=== PATIENT | male | born 1980 | race Caucasian/White ===

== ENCOUNTER → 2017-03-30 | Outpatient (CLI) | payer OTHER ==
--- NOTE | 2017-03-30 07:37 | US ---
EXAMINATION TYPE: US liver DATE OF EXAM: 03/30/2017 COMPARISON: NONE CLINICAL HISTORY: R74.8 Elevated Liver Enzymes. Elevated liver enzymes EXAM MEASUREMENTS: Liver Length: 17.9 cm Gallbladder Wall: 0.2 cm CBD: 0.3 cm Right Kidney: 11.8 x 5.9 x 5.9 cm Pancreas: visualized portions heterogeneous, limited by overlying midline bowel gas Liver: measures in upper limits of normal at 17.9cm, increased echogenicity, increased attenuation Gallbladder: wnl Evidence for sonographic Lugo's sign: no CBD: visualized portions wnl, limited by overlying bowel gas Right Kidney: wnl Visualized liver is heterogeneously hyperechoic. Evaluation for focal masses is suboptimal due to the heterogeneity. IMPRESSION: Heterogeneous hyperechoic liver could reflect product of diffuse fatty infiltration or un derlying hepatocellular disease. Imaging guided random biopsy for tissue analysis can be performed if desired.
== END | disposition home or self-care (01) ==
LOC: RADUSWWP 06:50
PROVIDERS: ATTEND Family Medicine
DX: R74.8 Abnormal levels of other serum enzymes (principal)
CPT/HCPCS: 76705

== ENCOUNTER 2018-03-25 22:12 | Inpatient (IN) | payer OTHER ==
[2018-03-25] MEDS ORDERED: SODIUM CHLORIDE 0.9% 1,000 ML IV STA (23:29)
[2018-03-25] MEDS ORDERED: LORazepam 2 MG/ML INJ IV STA (23:29)
--- NOTE | 2018-03-25 23:35 | ED ---
General Adult HPI - General Chief complaint: Arrhythmia/Palpitations Stated complaint: Shaking, palpitations Time Seen by Provider: 03/25/18 22:21 Source: patient, RN notes reviewed Mode of arrival: ambulatory Limitations: no limitations - History of Present Illness Initial comments: Patient is a pleasant 37-year-old male presenting to the emergency Department with complaints of shaking. Patient states he has been under increased stress recently. Patient has been trying to decrease alcohol consumption. Patient did drink some yesterday and some today however less than normal. Patient states he still feels shaky. Patient denies chest pain however states he was a little bit tight this morning. Patient believes this was associated with stress. Patient is undergoing divorce. Patient has also been increased stress with work recently. No dyspnea. No abdominal pain. No back pain. - Related Data Home Medications Medication Instructions Recorded Confirmed Chlorthalidone [Hygroton] 25 mg PO DAILY 03/25/18 03/25/18 amLODIPine BESYLATE/BENAZEPRIL 1 cap PO DAILY 03/25/18 03/25/18 [Lotrel 10-40 MG] Allergies Allergy/AdvReac Type Severity Reaction Status Date / Time No Known Allergies Allergy Verified 03/25/18 22:32 Review of Systems ROS Statement: Those systems with pertinent positive or pertinent negative responses have been documented in the HPI. ROS Other: All systems not noted in ROS Statement are negative. Constitutional: Denies: fever Eyes: Denies: eye pain ENT: Denies: ear pain Respiratory: Denies: cough Cardiovascular: Reports: palpitations Endocrine: Denies: fatigue Gastrointestinal: Denies: vomiting Genitourinary: Denies: dysuria Musculoskeletal: Denies: back pain Skin: Denies: rash Neurological: Denies: weakness Psychiatric: Reports: anxiety Past Medical History Past Medical History: Hypertension History of Any Multi-Drug Resistant Organisms: None Reported Past Surgical History: Orthopedic Surgery Additional Past Surgical History / Comment(s): rt hand,lt shoulder Past Psychological History: No Psychological Hx Reported Smoking Status: Never smoker Past Alcohol Use History: Daily, Heavy Past Drug Use History: None Reported General Exam Limitations: no limitations General appearance: alert, in no apparent distress, other ( resting tremor) Head exam: Present: atraumatic Eye exam: Present: normal appearance, PERRL ENT exam: Present: normal oropharynx Neck exam: Present: normal inspection Respiratory exam: Present: normal lung sounds bilaterally Cardiovascular Exam: Present: regular rate, normal rhythm, normal heart sounds Expanded Peripheral pulses: 2+: Radial (R), Radial (L), Dorsalis Pedis (R), Dorsalis Pedis (L) GI/Abdominal exam: Present: soft. Absent: distended, tenderness Extremities exam: Present: normal inspection. Absent: pedal edema, calf tenderness Neurological exam: Present: alert Psychiatric exam: Present: normal affect, normal mood Skin exam: Present: normal color Course Vital Signs 03/25/18 03/26/18 22:16 00:16 Temperature 98.1 F Pulse Rate 96 77 Respiratory 22 15 Rate Blood Pressure 149/84 150/90 O2 Sat by Pulse 98 96 Oximetry EKG Findings - EKG Comments: EKG Findings:: Normal sinus rhythm 85. UT 194. QRS 108. QT 382. QTC 454. Normal axis. Normal QRS. No acute ST change. Medical Decision Making - Medical Decision Making Patient reevaluated and updated. Case discussed in detail with Dr. Hernandez , covering for Dr. Hays, who admits for Dr. Crowder, who will admit. - Lab Data Result diagrams: 03/25/18 22:40 03/25/18 22:40 Lab Results 03/25/18 03/25/18 03/25/18 Range/Units 22:40 22:40 22:40 WBC 8.7 (3.8-10.6) k/uL RBC 4.95 (4.30-5.90) m/uL Hgb 15.9 (13.0-17.5) gm/dL Hct 46.0 (39.0-53.0) % MCV 92.9 (80.0-100.0) fL MCH 32.1 (25.0-35.0) pg MCHC 34.5 (31.0-37.0) g/dL RDW 12.8 (11.5-15.5) % Plt Count 154 (150-450) k/uL Neutrophils % 51 % Lymphocytes % 36 % Monocytes % 8 % Eosinophils % 1 % Basophils % 1 % Neutrophils # 4.4 (1.3-7.7) k/uL Lymphocytes # 3.2 (1.0-4.8) k/uL Monocytes # 0.7 (0-1.0) k/uL Eosinophils # 0.1 (0-0.7) k/uL Basophils # 0.1 (0-0.2) k/uL PT (9.0-12.0) sec INR (<1.2) APTT (22.0-30.0) sec Sodium 124 L (137-145) mmol/L Potassium 2.8 L (3.5-5.1) mmol/L Chloride 86 L (98-107) mmol/L Carbon Dioxide 24 (22-30) mmol/L Anion Gap 14 mmol/L BUN 7 L (9-20) mg/dL Creatinine 0.66 (0.66-1.25) mg/dL Est GFR (CKD-EPI)AfAm >90 (>60 ml/min/1.73 sqM) Est GFR (CKD-EPI)NonAf >90 (>60 ml/min/1.73 sqM) Glucose 98 (74-99) mg/dL Calcium 9.5 (8.4-10.2) mg/dL Magnesium 1.4 L (1.6-2.3) mg/dL Total Bilirubin 1.9 H (0.2-1.3) mg/dL AST 164 H (17-59) U/L ALT 83 H (21-72) U/L Alkaline Phosphatase 70 (38-126) U/L Total Creatine Kinase 451 H (55-170) U/L CK-MB (CK-2) 3.8 H (0.0-2.4) ng/mL CK-MB (CK-2) Rel Index 0.8 Troponin I <0.012 (0.000-0.034) ng/mL Total Protein 7.7 (6.3-8.2) g/dL Albumin 4.5 (3.5-5.0) g/dL TSH 5.180 H (0.465-4.680) mIU/L 03/25/18 Range/Units 22:40 WBC (3.8-10.6) k/uL RBC (4.30-5.90) m/uL Hgb (13.0-17.5) gm/dL Hct (39.0-53.0) % MCV (80.0-100.0) fL MCH (25.0-35.0) pg MCHC (31.0-37.0) g/dL RDW (11.5-15.5) % Plt Count (150-450) k/uL Neutrophils % % Lymphocytes % % Monocytes % % Eosinophils % % Basophils % % Neutrophils # (1.3-7.7) k/uL Lymphocytes # (1.0-4.8) k/uL Monocytes # (0-1.0) k/uL Eosinophils # (0-0.7) k/uL Basophils # (0-0.2) k/uL PT 13.0 H (9.0-12.0) sec INR 1.3 H (<1.2) APTT 26.6 (22.0-30.0) sec Sodium (137-145) mmol/L Potassium (3.5-5.1) mmol/L Chloride (98-107) mmol/L Carbon Dioxide (22-30) mmol/L Anion Gap mmol/L BUN (9-20) mg/dL Creatinine (0.66-1.25) mg/dL Est GFR (CKD-EPI)AfAm (>60 ml/min/1.73 sqM) Est GFR (CKD-EPI)NonAf (>60 ml/min/1.73 sqM) Glucose (74-99) mg/dL Calcium (8.4-10.2) mg/dL Magnesium (1.6-2.3) mg/dL Total Bilirubin (0.2-1.3) mg/dL AST (17-59) U/L ALT (21-72) U/L Alkaline Phosphatase (38-126) U/L Total Creatine Kinase (55-170) U/L CK-MB (CK-2) (0.0-2.4) ng/mL CK-MB (CK-2) Rel Index Troponin I (0.000-0.034) ng/mL Total Protein (6.3-8.2) g/dL Albumin (3.5-5.0) g/dL TSH (0.465-4.680) mIU/L - Radiology Data Radiology results: image reviewed (Chest x-ray shows no acute process) Disposition Clinical Impression: Hyponatremia, Hypokalemia Disposition: ADMITTED IP TO THIS [facility] Is patient prescribed a controlled substance at d/c from ED?: No Referrals: Carlos Enrique Crowder MD [Primary Care Provider] - 1-2 days Decision Time: 00:27
[2018-03-25 23:55] LABS: Basophils # (A) 0.1 k/uL (0-0.2); Basophils % (A) 1 %; Eosinophils # (A) 0.1 k/uL (0-0.7); Eosinophils % (A) 1 %; HGB 15.9 gm/dL (13.0-17.5); Lymphocytes # (A) 3.2 k/uL (1.0-4.8); Lymphocytes % (A) 36 %; MCH 32.1 pg (25.0-35.0); MCHC 34.5 g/dL (31.0-37.0); MCV 92.9 fL (80.0-100.0); Mean Platelet Volume 7.5; Monocytes # (A) 0.7 k/uL (0-1.0); Monocytes % (A) 8 %; Neutrophils # (A) 4.4 k/uL (1.3-7.7); Neutrophils % (A) 51 %; Platelet Count 154 k/uL (150-450); RBC 4.95 m/uL (4.30-5.90); RDW 12.8 % (11.5-15.5); WBC 8.7 k/uL (3.8-10.6)
[2018-03-26 00:08] LABS: ALT 83 U/L (21-72); AST 164 U/L (17-59); Albumin 4.5 g/dL (3.5-5.0); Alkaline Phosphatase 70 U/L (38-126); Anion Gap 14 mmol/L; Blood Urea Nitrogen 7 mg/dL (9-20); Calcium 9.5 mg/dL (8.4-10.2); Carbon Dioxide 24 mmol/L (22-30); Chloride 86 mmol/L (98-107); Glucose 98 mg/dL (74-99); Magnesium 1.4 mg/dL (1.6-2.3); Potassium 2.8 mmol/L (3.5-5.1); Sodium 124 mmol/L (137-145); Total Bilirubin 1.9 mg/dL (0.2-1.3); Total Protein 7.7 g/dL (6.3-8.2)
[2018-03-26 00:09] LABS: INR 1.3 (<1.2); Partial Thromboplastin Time 26.6 sec (22.0-30.0)
--- NOTE | 2018-03-26 00:16 | XR ---
EXAMINATION TYPE: XR chest 2V DATE OF EXAM: 03/26/2018 COMPARISON: NONE HISTORY: Dysrhythmia. TECHNIQUE: Frontal and lateral views of the chest are obtained. FINDINGS: Heart and mediastinum are normal. Lungs are clear. Diaphragm is normal. Bony thorax appear s normal. IMPRESSION: Normal chest
[2018-03-26] MEDS ORDERED: POTASSIUM CHLORIDE ER 20 MEQ TAB.ER PO STA (00:21)
[2018-03-26] MEDS ORDERED: POTASSIUM CHLORIDE 2 MEQ/ML 20 ML VIAL IVPB STA (00:21)
[2018-03-26] MEDS ORDERED: MAGNESIUM SULFATE-D5W PMX 1 GM in DEXTROSE/WATER 1 100ML.BAG IVPB ONE (00:22)
[2018-03-26] MEDS ORDERED: LORazepam 2 MG/ML INJ IV PRN ×3 (00:23)
[2018-03-26] MEDS ORDERED: NALOXONE 0.4 MG/ML 1 ML VIAL IV PRN (00:23)
[2018-03-26 00:24] LABS: Creatine Kinase 451 U/L (55-170)
[2018-03-26 00:37] LABS: Creatine Kinase MB 3.8 ng/mL (0.0-2.4); Troponin I <0.012 ng/mL (0.000-0.034)
[2018-03-26] MEDS ORDERED: POTASSIUM CHLORIDE 100 ML IVPB ONE (00:45)
[2018-03-26] MEDS ORDERED: POTASSIUM CHLORIDE IVPB ONE (00:49)
[2018-03-26] MEDS ORDERED: 0.9% NACL WITH KCL 20 MEQ/L 1,000 ML IV SCH (01:00)
[2018-03-26] MEDS: MAGNESIUM OXIDE 400 MG TAB PO SCH ×3 (01:23→21:37)
--- NOTE | 2018-03-26 01:31 | P.HPIM ---
History of Present Illness Chief Complaint: Anxiety and tremulousness This is a 37-year-old male with history of alcoholism and hypertension who came to emergency department complaining of unremitting anxiety and tremulousness. His problems started on the morning of admission. He woke up in the usual state of health but started developing some anxiety, sweats and shaking in his hands accompanied by nausea and one episode of known bile was nonbloody vomit. Denied any headache, alteration in mental status, vision changes, hot flashes, chest pain. Patient states that he normally drinks 10-15 cans of beer a day for many years. Day prior to today he was drinking as normal. After developing above mentioned symptoms he tried some relaxation technique at his condition was not improving and he started drinking beer again. He drank about 15 beers on the day of admission. He felt that his anxiety is still going on. He feels that he 's been under lots of stress since he'd been going through divorce. He denies depression or suicidal attempts. He came to emergency department and was found to have sodium 124 and potassium of 2.4. His liver enzymes slightly elevated with normal bilirubin and alk phos of this. He does have a ultrasound of the liver about a year ago that showed fatty liver changes. He is aware of liver damage. He denies any drug use. He states that he hasn't been eating for last day or 2 and he's been mostly drinking. Emergency department he was given 1 L of normal saline potassium and magnesium infusion and started on normal saline at 75 mL/h. He will also given Ativan. After that he started feeling much better. Currently during interview he states that all of his anxiety and tremulousness has completely resolved and he' s been feeling much better. Patient denies any history of prior hospitalization, alcohol rehab or enrollment in the alcohol cessation program, seizures or delirium tremens Review of Systems REVIEW OF SYSTEMS: CONSTITUTIONAL: No fever or chills HEENT: No changes in vision or voice CARDIOVASCULAR: no chest pain or abnormal heart beats, or any swelling in ankles or feet. RESPIRATORY: No wheezing or coughing. GASTROINTESTINAL: No abdominal pain, no constipation or diarrhea GENITOURINARY: no any urinary urgency, frequency or burning, and there has been no blood in her urine. no flank pain. MUSCULOSKELETAL: She notes full range of motion of all her joints without pain or swelling. NEUROLOGICAL: , no headache. no vision changes, or fainting. No numbness or tingling. Psychiatric: As mentioned in history of present illness Genitourinary: No dysuria flank pain or frequency Past Medical History Past Medical History: Hypertension History of Any Multi-Drug Resistant Organisms: None Reported Past Surgical History: Orthopedic Surgery Additional Past Surgical History / Comment(s): rt hand,lt shoulder Past Psychological History: No Psychological Hx Reported Smoking Status: Never smoker Past Alcohol Use History: Daily, Heavy Past Drug Use History: None Reported Medications and Allergies Home Medications Medication Instructions Recorded Confirmed Type Chlorthalidone [Hygroton] 25 mg PO DAILY 03/25/18 03/25/18 History amLODIPine BESYLATE/BENAZEPRIL 1 cap PO DAILY 03/25/18 03/25/18 History [Lotrel 10-40 MG] Allergies Allergy/AdvReac Type Severity Reaction Status Date / Time No Known Allergies Allergy Verified 03/25/18 22:32 Physical Exam Vitals: Vital Signs Temp Pulse Resp BP Pulse Ox 03/26/18 01:09 97.6 F 78 19 134/81 96 03/26/18 00:16 77 15 150/90 96 03/25/18 22:16 98.1 F 96 22 149/84 98 Intake and Output 03/25/18 03/25/18 03/26/18 14:59 22:59 06:59 Other: Weight 112.128 kg Vital Signs: I have reviewed the vital signs. GENERAL: Well-nourished, Well-developed , no apparent distress, cooperative Eyes: PERRL, extraoculry movements intact, clear conjunctiva no nystagmus Head: : Atraumatic external nose and ears, oropharyngeal mucosa is moist without lesions or exudates Neck: Symmetric, trachea midline, No thyromegaly, no masses or neck vain pulsation, no neck rigidity CVS: +S1/S2, No murmurs or gallops. Peripheral pulses 2+ and equal in all extremities. RESP: Unlabored respiratory effort. Clear to auscultation bilaterally. Abdomen: Bowel sounds present in all 4 quadrants, Soft to palpation, Nontender/ Nondistended, No hepatosplenomegaly, no hernias or masses, no CVA tnderness Musculoskeletal: Extremities w/o deformity, No cyanosis or clubbing, no joint swelling Skin: Warm, Dry. 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 Finger to nose intact. No nystagmus. Psych: Awake, Alert, & Oriented (AAO) x3 Appropriate mood and affect Results CBC & Chem 7: 03/25/18 22:40 03/25/18 22:40 Labs: Abnormal Lab Results - Last 24 Hours (Table) 03/25/18 03/25/18 03/25/18 Range/Units 22:40 22:40 22:40 PT 13.0 H (9.0-12.0) sec INR 1.3 H (<1.2) Sodium 124 L (137-145) mmol/L Potassium 2.8 L (3.5-5.1) mmol/L Chloride 86 L (98-107) mmol/L BUN 7 L (9-20) mg/dL Magnesium 1.4 L (1.6-2.3) mg/dL Total Bilirubin 1.9 H (0.2-1.3) mg/dL AST 164 H (17-59) U/L ALT 83 H (21-72) U/L Total Creatine Kinase 451 H (55-170) U/L CK-MB (CK-2) 3.8 H (0.0-2.4) ng/mL TSH 5.180 H (0.465-4.680) mIU/L Assessment and Plan Assessment: 1. Hyponatremia, hypovolemic Probably Due to beer potomania and decreased solute intake, rule out other causes We'll check his serum and urine osmolarity TSH cortisol as a part of the usual workup We will hold his home chlorthalidone He was already given 1 L fluid in ER and continued IV fluids I will order stat electrolytes now to evaluate response of his sodium after above IV fluids and to be able to further adjust his IV fluids Check electrolytes every 4-6 hours. 2. Hypokalemia Multifactorial, due to decreased by mouth intake, alcohol intake, hypomagnesemia and dehydration and thiazides Hold chlorthalidone He received potassium and magnesium supplementation emergency department We will check his potassium now 3. Elevated liver enzymes With AST:ALT ratio >2:1 Normal bilirubin and alkaline phosphatase Presumably due to alcoholic liver disease Ultrasound of the liver one year ago showed fatty changes We'll add viral hepatitis panel Repeat liver enzymes in the morning 4. Chronic alcoholism Last drink was today Continue with [facility] protocol Multivitamin supplementation as per protocol Social work to evaluate for rehabilitation options 5. Hypertension benign essential Blood pressure is stable and acceptable range Hold his home medications Patient is a full code is a surrogate decision maker Expected length of stay 2 days
[2018-03-26 02:54] LABS: Anion Gap 13 mmol/L; Blood Urea Nitrogen 6 mg/dL (9-20); Calcium 9.3 mg/dL (8.4-10.2); Carbon Dioxide 25 mmol/L (22-30); Chloride 87 mmol/L (98-107); Glucose 97 mg/dL (74-99); Sodium 125 mmol/L (137-145)
[2018-03-26 07:44] LABS: ALT 81 U/L (21-72); AST 179 U/L (17-59); Anion Gap 10 mmol/L; Blood Urea Nitrogen 5 mg/dL (9-20); Carbon Dioxide 28 mmol/L (22-30); Chloride 92 mmol/L (98-107); Glucose 88 mg/dL (74-99); Potassium 3.4 mmol/L (3.5-5.1); Sodium 130 mmol/L (137-145)
[2018-03-26] MEDS ORDERED: POTASSIUM BICARBONATE/CIT AC 20 MEQ TABLET.EFF PO ONE (08:30)
--- NOTE | 2018-03-26 09:07 | P.PN ---
Subjective Progress Note Date: 03/26/18 Principal diagnosis: tremors Patient is a 37-year-old male who presented with complaints of tremors and anxiety. Admitted for hyponatremia and impending delirium tremens. Already seen by Dr. Mahtis from our group this morning. Reevaluation of patient. He is starting to feel tremulousness and anxious again. He is determined to quit would like help with medications to abstain from all the gibson. He has 3 kids and is motivated to maintain sobriety. He is interested in treatments with programs such as AA but would not want a program where he has to live at home. No chest pain, shortness of breath, nausea, vomiting, or diaphoresis. Did have one episode of confusion last night. Discussed in detail with patient use of Librium to treat alcohol withdrawal. We discussed that Librium is a sedating medication and if combined with alcohol can lead to overdose which can progress to . Patient is aware. I have told him I will prescribe him Librium on discharge because he is aware of these risks. He acknowledges understanding and states he would want a trial of Librium and to join AA. He has a PCP Dr. Crowder who he can follow with to see how the Librium taper is going. We also discussed that he will need repeat blood work in 1 week to ensure his sodium level remains stable. For full note from 03/26/18 please see H&P by Dr. Marcin Benson Objective - Vital Signs Vital signs: Vital Signs Temp 97.9 F 03/26/18 02:13 Pulse 78 03/26/18 05:31 Resp 15 03/26/18 05:31 BP 135/80 03/26/18 05:31 Pulse Ox 98 03/26/18 05:31 Intake & Output 03/25/18 03/26/18 03/26/18 18:59 06:59 18:59 Intake Total 100 0 Balance 100 0 Weight 109.8 kg Intake: Intake, IV Titration 100 Amount Potassium Chloride 20 meq 100 In Empty Bag 1 bag @ 50 mls/hr IVPB ONCE ONE Rx#: [id number] Oral 0 Other: # Voids 2 - Labs CBC & Chem 7: 03/25/18 22:40 03/26/18 05:58 Labs: Abnormal Lab Results - Last 24 Hours (Table) 03/25/18 03/25/18 03/25/18 Range/Units 22:40 22:40 22:40 PT 13.0 H (9.0-12.0) sec INR 1.3 H (<1.2) Sodium 124 L (137-145) mmol/L Potassium 2.8 L (3.5-5.1) mmol/L Chloride 86 L (98-107) mmol/L BUN 7 L (9-20) mg/dL Osmolality (280-301) mosm/kg Magnesium 1.4 L (1.6-2.3) mg/dL Total Bilirubin 1.9 H (0.2-1.3) mg/dL AST 164 H (17-59) U/L ALT 83 H (21-72) U/L Total Creatine Kinase 451 H (55-170) U/L CK-MB (CK-2) 3.8 H (0.0-2.4) ng/mL TSH 5.180 H (0.465-4.680) mIU/L 03/26/18 03/26/18 03/26/18 Range/Units 02:15 05:58 05:58 PT (9.0-12.0) sec INR (<1.2) Sodium 125 L 130 L (137-145) mmol/L Potassium 3.0 L 3.4 L (3.5-5.1) mmol/L Chloride 87 L 92 L (98-107) mmol/L BUN 6 L 5 L (9-20) mg/dL Osmolality 264 L (280-301) mosm/kg Magnesium (1.6-2.3) mg/dL Total Bilirubin (0.2-1.3) mg/dL AST 179 H (17-59) U/L ALT 81 H (21-72) U/L Total Creatine Kinase (55-170) U/L CK-MB (CK-2) (0.0-2.4) ng/mL TSH (0.465-4.680) mIU/L
[2018-03-26] MEDS: chlordiazePOXIDE 25 MG CAP PO SCH ×3 (09:26→21:38)
[2018-03-26] MEDS: THIAMINE 100 MG TAB PO SCH ×2 (11:57→21:15)
[2018-03-26] MEDS ORDERED: MULTIVITAMINS, THERA 1 EACH TAB PO SCH (12:00)
[2018-03-26 18:46] LABS: Hepatitis A Ab, Total Non-Reactive (Non-Reactive); Hepatitis B Surface AB- Quant 59.5 mIU/mL; Hepatitis C IgG Antibody Non-Reactive (Non-Reactive)
[2018-03-27 07:16] LABS: HCT 45.3 % (39.0-53.0); HGB 15.2 gm/dL (13.0-17.5); MCH 31.6 pg (25.0-35.0); MCHC 33.6 g/dL (31.0-37.0); MCV 93.9 fL (80.0-100.0); Mean Platelet Volume 6.9; Platelet Count 168 k/uL (150-450); RBC 4.83 m/uL (4.30-5.90); RDW 12.8 % (11.5-15.5); WBC 5.7 k/uL (3.8-10.6)
[2018-03-27 07:35] LABS: ALT 97 U/L (21-72); AST 226 U/L (17-59); Albumin 4.5 g/dL (3.5-5.0); Alkaline Phosphatase 58 U/L (38-126); Anion Gap 10 mmol/L; Blood Urea Nitrogen 8 mg/dL (9-20); Calcium 9.6 mg/dL (8.4-10.2); Carbon Dioxide 30 mmol/L (22-30); Chloride 96 mmol/L (98-107); Glucose 98 mg/dL (74-99); Potassium 3.5 mmol/L (3.5-5.1); Sodium 136 mmol/L (137-145); Total Bilirubin 1.3 mg/dL (0.2-1.3); Total Protein 7.7 g/dL (6.3-8.2)
[2018-03-27] MEDS: chlordiazePOXIDE 25 MG CAP PO SCH (08:00)
[2018-03-27] MEDS: MAGNESIUM OXIDE 400 MG TAB PO SCH (08:00)
[2018-03-27 08:07] VITALS: BP 141/101; PULSE 74; RESP 16; TEMP 97.6
[2018-03-27] MEDS ORDERED: LISINOPRIL 20 MG TAB PO SCH (09:00)
[2018-03-27] MEDS ORDERED: amLODIPine 10 MG TAB PO SCH (09:00)
--- NOTE | 2018-03-27 10:58 | P.DS ---
Providers Date of admission: 03/26/18 00:23 Expected date of discharge: 03/27/18 Attending physician: Marcin Benson MD Primary care physician: Carlos Enrique Crowder Hospital Course: Discharge Diagnosis: Hyponatremia Delirium tremens Transaminits due to alcohol Fatty liver disease Hypokalemia HTN Hospital Course: Patient is a 37-year-old male who presented with complaints of tremors and anxiety. On arrival to the ER his vital signs within normal limits. Initial laboratory analysis showed a sodium of 124, potassium 2.8, INR 1.3, magnesium 1.4, bilirubin 1.9, AST 164, an ALT of 83. He was started on IV fluids, his chlorthalidone was held, and he was given a dose of Ativan. He was admitted for further monitoring. His opium were corrected appropriately and is able to come off IV fluids. He was started on scheduled Librium. His symptoms of alcohol withdrawal completely resolved. His potassium normalized and his magnesium normalized. Hepatitis screening was negative for acute infection. TSH on repeat testing was normal. Cortisol level normal. His sodium was normalized and he was determined stable for discharge home. He'll have slightly elevated liver enzymes at 226 and 97. I discussed with him at length the need for follow-up with Dr. Crowder next week for repeat sodium level as well as repeat liver enzyme. He has a known history of fatty liver disease secondary to alcoholism. He will need close monitoring. We had multiple lengthy discussions about the use of Librium to prevent alcohol withdrawal. He was determined to quit. We discussed that if he combines Librium with alcohol is believed overdose and . He assures me he'll not and understands risk. He still would like a prescription for Librium. We have discussed at length the signs of worsening alcohol withdrawal and when he should represent to the emergency department as listed below in his discharge instructions. He was determined stable for discharge home. Patient seen and examined at bedside. No chest pain, sob, nausea, tremors, or diaphoresis. Vital signs reviewed and stable. General: non toxic, no distress, appears at stated age Derm: warm, dry Head: atraumatic, normocephalic, symmetric Eyes: EOMI, no lid lag, anicteric sclera Mouth: no lip lesion, mucus membranes moist Cardiovascular: S1S2 reg, no murmur, positive posterior tibial pulse bilateral, Lungs: CTA bilateral, no rhonchi, no rales , no accessory muscle use Abdominal: soft, nontender to palpation, no guarding, no appreciable organomegaly Ext: no gross muscle atrophy, no edema, no contractures Neuro: CN II-XI grossly intact, no focal neuro deficits Psych: Alert, oriented, appropriate affect A total of 35 minutes of time were spent preparing this complex discharge summary . Pertinent Studies: CXR- NAP Patient Condition at Discharge: Stable Plan - Discharge Summary Discharge Rx Participant: No New Discharge Prescriptions: New chlordiazePOXIDE HCl [Librium] See Taper PO TID 15 Days #30 capsule Continue amLODIPine BESYLATE/BENAZEPRIL [Lotrel 10-40 MG] 1 cap PO DAILY Discontinued Chlorthalidone [Hygroton] 25 mg PO DAILY Discharge Medication List amLODIPine BESYLATE/BENAZEPRIL [Lotrel 10-40 MG] 1 cap PO DAILY 03/25/18 [ History] chlordiazePOXIDE HCl [Librium] See Taper PO TID 15 Days #30 capsule 03/27/18 [Rx ] Follow up Appointment(s)/Referral(s): Carlos Enrique Crowder MD [Primary Care Provider] - 1-2 days Ambulatory/Diagnostic Orders: Comprehensive Metabolic Panel [LAB.AMB] Time Frame: 5 Days, Location: None Selected Patient Instructions/Handouts: Alcohol Withdrawal (DC) Activity/Diet/Wound Care/Special Instructions: regular diet activity as tolerated Avoid alcohol while on librium can lead to overdose and Return if: racing heart, sweating, tremors, confusion, sleepiness, shaking Discharge Disposition: HOME SELF-CARE
[2018-03-27 11:29] LABS: Potassium 3.5 mmol/L (3.5-5.1)
== END 2018-03-27 12:05 | disposition home or self-care (01) | DRG 641 ==
LOC: EC 22:12 → 3SCARD 03-26 00:23
PROVIDERS: ADMIT Hospitalist; ATTEND Hospitalist
DX: E87.1 Hypo-osmolality and hyponatremia (principal); F10.231 Alcohol dependence with withdrawal delirium; E83.42 Hypomagnesemia; E86.0 Dehydration; E86.1 Hypovolemia; E87.6 Hypokalemia; F41.9 Anxiety disorder, unspecified; I10 Essential (primary) hypertension; K70.9 Alcoholic liver disease, unspecified; K76.0 Fatty (change of) liver, not elsewhere classified; Z79.899 Other long term (current) drug therapy
CPT/HCPCS: 36415; 71046; 80048; 80051; 80053; 82533; 82550; 82553; 83735; 83930; 83935; 84443; 84450; 84460; 84484; 85025; 85027; 85610; 85730; 86704; 86706; 86708; 86803; 87340; 93005; 96361; 96365; 96375; 99285

== ENCOUNTER 2018-08-28 19:01 | Emergency (ER) | payer BC, OTHER ==
[2018-08-28 19:44] VITALS: BP 158/103; PULSE 90; RESP 18; TEMP 99.2
--- NOTE | 2018-08-28 20:37 | ED ---
Extremity Problem HPI - General Chief complaint: Extremity Problem,Nontraumatic Stated complaint: RT foot injury/swelling Time Seen by Provider: 08/28/18 20:24 Source: patient Mode of arrival: ambulatory Limitations: no limitations - History of Present Illness Initial comments: Kian is a previously healthy nondiabetic 38-year-old gentleman who presents the emergency department today for evaluation of redness of his right foot. Patient reports that he woke this morning and noticed that there was a patch of redness around his right great toe, throughout the day today he's noticed that his entire foot becoming red and swollen, he used to marker marked the borders and came to the ER for evaluation. Patient reports he has been bloating recently and in the water, he has not noticed any injury or bug bites. denies any associated fevers, chills, nausea or vomiting. He reports he's otherwise feeling well but was worried he had a skin infections became the ER for evaluation. - Related Data Home Medications Medication Instructions Recorded Confirmed amLODIPine BESYLATE/BENAZEPRIL 1 cap PO DAILY 03/25/18 08/28/18 [Lotrel 10-40 MG] Previous Rx's Medication Instructions Recorded Cephalexin [Keflex] 500 mg PO Q6HR #28 cap 08/28/18 Allergies Allergy/AdvReac Type Severity Reaction Status Date / Time No Known Allergies Allergy Verified 08/28/18 20:35 Review of Systems ROS Statement: Those systems with pertinent positive or pertinent negative responses have been documented in the HPI. ROS Other: All systems not noted in ROS Statement are negative. Past Medical History Past Medical History: Hypertension History of Any Multi-Drug Resistant Organisms: None Reported Past Surgical History: Orthopedic Surgery Additional Past Surgical History / Comment(s): 2 rt hand,lt shoulder, Past Psychological History: No Psychological Hx Reported Smoking Status: Never smoker Past Alcohol Use History: Daily, Heavy Past Drug Use History: None Reported - Past Family History Mother Family Medical History: Hypertension General Exam - General Exam Comments Initial Comments: Physical Exam GENERAL: Patient is well-developed and well-nourished. Patient is nontoxic and well- hydrated and is in no distress. HENT: Normocephalic, Atraumatic. EYES: PERRL, EOMI PULMONARY: Unlabored respirations. No audible rales rhonchi or wheezing was noted. CARDIOVASCULAR: There is a regular rate and rhythm without any murmurs gallops or rubs. ABDOMEN: Soft and nontender with normal bowel sounds. SKIN: Petechial rash to the right foot to the level of the ankle, there is some induration : Deferred NEUROLOGIC: Patient is alert and oriented x3. Moving all extremities spontaneously MUSCULOSKELETAL: Normal extremities with adequate strength and full range of motion. No lower extremity swelling or edema. No calf tenderness. PSYCHIATRIC: Normal psychiatric evaluation Limitations: no limitations Course Vital Signs 08/28/18 19:41 Temperature 99.2 F Pulse Rate 90 Respiratory 18 Rate Blood Pressure 158/103 O2 Sat by Pulse 99 Oximetry Medical Decision Making - Medical Decision Making The patient was seen and evaluated history is obtained from the patient Patient with apparent cellulitis to the right foot, no obvious injury or breaks in the skin. Will start on oral antibiotics tonight given prescription for 7 days of antibiotics. All questions pertaining care were answered return parameters were discussed patient was discharged home in stable condition. Disposition Clinical Impression: Cellulitis Disposition: HOME SELF-CARE Condition: Stable Instructions (If sedation given, give patient instructions): Cellulitis (DC) Prescriptions: Cephalexin [Keflex] 500 mg PO Q6HR #28 cap Is patient prescribed a controlled substance at d/c from ED?: No Referrals: Carlos Enrique Crowder MD [Primary Care Provider] - 1-2 days
[2018-08-28] MEDS ORDERED: CEPHALEXIN 500MG STARTER PACK 4 CAP BTL PO STA (21:25)
== END 2018-08-28 21:40 | disposition home or self-care (01) ==
LOC: EC 19:01
DX: L03.115 Cellulitis of right lower limb (principal); I10 Essential (primary) hypertension; Z79.899 Other long term (current) drug therapy
CPT/HCPCS: 99283

== ENCOUNTER 2019-05-03 10:13 | Emergency (ER) | payer OTHER ==
[2019-05-03] MEDS ORDERED: HYDROcodone/APAP 7.5-325MG 1 EACH TAB PO ONE (10:41)
--- NOTE | 2019-05-03 11:18 | ED ---
Lower Extremity Injury HPI - General Chief Complaint: Extremity Injury, Lower Stated Complaint: Lt knee pain Time Seen by Provider: 05/03/19 10:29 Source: patient, RN notes reviewed Mode of arrival: wheelchair Limitations: no limitations - History of Present Illness Initial Comments: This a 38-year-old male presents emergency Department chief complaint left knee pain, swelling. Patient denies any known trauma. He does admit that he's been doing nicolás recently has been up and down but states he does not feel any pops no twisting no abnormal movement. Patient states she's had prior surgery denies any history of blood clots denies any chest pain or shortness breath. He states it's very painful to move he states it feels like it wants to give out on him. - Related Data Home Medications Medication Instructions Recorded Confirmed amLODIPine BESYLATE/BENAZEPRIL 1 cap PO DAILY 03/25/18 08/28/18 [Lotrel 10-40 MG] Previous Rx's Medication Instructions Recorded Cephalexin [Keflex] 500 mg PO Q6HR #28 cap 08/28/18 Ibuprofen [Motrin] 600 mg PO Q8HR PRN #20 tab 05/03/19 predniSONE 50 mg PO DAILY #5 tab 05/03/19 Allergies Allergy/AdvReac Type Severity Reaction Status Date / Time No Known Allergies Allergy Verified 05/03/19 10:25 Review of Systems ROS Statement: Those systems with pertinent positive or pertinent negative responses have been documented in the HPI. ROS Other: All systems not noted in ROS Statement are negative. Past Medical History Past Medical History: Hypertension History of Any Multi-Drug Resistant Organisms: None Reported Past Surgical History: Orthopedic Surgery Additional Past Surgical History / Comment(s): 2 rt hand,lt shoulder, Past Psychological History: No Psychological Hx Reported Smoking Status: Never smoker Past Alcohol Use History: Daily, Heavy Past Drug Use History: None Reported - Past Family History Mother Family Medical History: Hypertension General Exam Limitations: no limitations General appearance: alert, in no apparent distress Head exam: Present: atraumatic, normocephalic, normal inspection Eye exam: Present: normal appearance, PERRL, EOMI. Absent: scleral icterus, conjunctival injection, periorbital swelling Neck exam: Present: normal inspection, full ROM. Absent: tenderness, meningismus, lymphadenopathy Respiratory exam: Present: normal lung sounds bilaterally. Absent: respiratory distress, wheezes, rales, rhonchi, stridor Cardiovascular Exam: Present: regular rate, normal rhythm, normal heart sounds. Absent: systolic murmur, diastolic murmur, rubs, gallop, clicks Extremities exam: Present: other (left knee moderate swelling/effusion, no erythema, limited range of motion second pain no laxity noted there is swelling above and below the knee) Course Vital Signs 05/03/19 10:24 Temperature 98.4 F Pulse Rate 72 Respiratory 16 Rate Blood Pressure 131/84 O2 Sat by Pulse 98 Oximetry Medical Decision Making - Medical Decision Making X-ray shows bony abnormality on the tibia patient was updated advised to follow- up. Ultrasound is negative for DVT. Patient mostly has a left knee sprain versus some bursitis he has he has been recently working for him. Patient will follow-up with orthopedics return parameters were discussed. Disposition Clinical Impression: Left knee sprain, Bursitis of left knee Disposition: HOME SELF-CARE Condition: Stable Instructions (If sedation given, give patient instructions): Knee Sprain (ED) Additional Instructions: Please return to the Emergency Department if symptoms worsen or any other concerns. Prescriptions: Ibuprofen [Motrin] 600 mg PO Q8HR PRN #20 tab PRN Reason: Pain predniSONE 50 mg PO DAILY #5 tab Is patient prescribed a controlled substance at d/c from ED?: No Referrals: Carlos Enrique Crowder MD [Primary Care Provider] - 1-2 days Kofi Lira MD [STAFF PHYSICIAN] - 1-2 days Time of Disposition: 12:03
--- NOTE | 2019-05-03 11:19 | US ---
EXAMINATION TYPE: US venous doppler duplex LE LT DATE OF EXAM: 05/03/2019 10:44 AM COMPARISON: NONE CLINICAL HISTORY: pain, swelling. SIDE PERFORMED: Left TECHNIQUE: The lower extremity deep venous system is examined utilizing real time linear array sonog niko with graded compression, doppler sonography and color-flow sonography. VESSELS IMAGED: External Iliac Vein (EIV) Common Femoral Vein Deep Femoral Vein Greater Saphenous Vein * Femoral Vein Popliteal Vein Small Saphenous Vein * Proximal Calf Veins (* superficial vessels) Grayscale, color doppler, spectral doppler imaging performed of the deep veins of the left lower extr emity. There is normal flow, compressibility, vascular waveforms. Left Leg: Negative for DVT IMPRESSION: No sonographic evidence of deep venous thrombosis within the left lower extremity.
--- NOTE | 2019-05-03 11:28 | XR ---
EXAMINATION TYPE: XR knee complete LT DATE OF EXAM: 05/03/2019 COMPARISON: NONE HISTORY: Pain TECHNIQUE: Three views are submitted. FINDINGS: Joint spaces are preserved. Osseous structures are intact. No acute fracture seen. Spurring along the upper margin of the patella noted and there appears to be a small amount of fluid in the suprapat ellar bursa. Cortical thickening along the proximal lateral tibia noted. IMPRESSION: 1. No acute fracture or dislocation. Cortical thickening along the proximal lateral tibia favored ov er small osteochondroma. If symptoms persist consider MRI.
[2019-05-03] MEDS ORDERED: ACET/COD 300 MG/30 MG STARTER PACK 6 TAB BTL PO STA (12:04)
[2019-05-03 12:15] VITALS: BP 150/89; PULSE 69; RESP 20; TEMP 98.3
== END 2019-05-03 12:15 | disposition home or self-care (01) ==
LOC: EC 10:13
DX: S83.92XA Sprain of unspecified site of left knee, initial encounter (principal); M70.52 Other bursitis of knee, left knee; I10 Essential (primary) hypertension; Z79.1 Long term (current) use of non-steroidal anti-inflammatories (NSAID); Z98.890 Other specified postprocedural states; X58.XXXA Exposure to other specified factors, initial encounter
CPT/HCPCS: 99284

== ENCOUNTER 2019-07-18 22:19 | Emergency (ER) | payer OTHER ==
[2019-07-18 22:28] VITALS: PULSE 98; RESP 18; TEMP 98
[2019-07-18] MEDS ORDERED: LIDOCAINE 1%-EPI 1:100,000 20 ML VIAL SQ STA (22:48)
--- NOTE | 2019-07-18 23:21 | ED ---
Wound/Laceration HPI - General Chief Complaint: Wound/Laceration Stated Complaint: Leg Laceration Time Seen by Provider: 07/18/19 22:35 Source: patient Mode of arrival: ambulatory - History of Present Illness Initial Comments: 38-year-old male presenting today for chief complaint of right leg laceration. Patient states he was working on a roof earlier when he was cut by a hook. Patient states he was unable to control the bleeding and then his presents to the emergency department this afternoon. He states occur at 11:45 AM. Patient states she has been wrapping T-shirts around the injury. Patient states his tetanus up-to-date within the last 5 years. He shouldn't denies any other areas of injury. Patient denies any other complaints she states it is supple there's foreign body. Patient states he thought the laceration overall was superficial however was noted the laceration would not stop bleeding. Remaining review of system negative upon arrival patient appears well, slow amount of oozing blood from laceration. - Related Data Home Medications Medication Instructions Recorded Confirmed amLODIPine BESYLATE/BENAZEPRIL 1 cap PO DAILY 03/25/18 08/28/18 [Lotrel 10-40 MG] Previous Rx's Medication Instructions Recorded Cephalexin [Keflex] 500 mg PO Q6HR #28 cap 08/28/18 Ibuprofen [Motrin] 600 mg PO Q8HR PRN #20 tab 05/03/19 predniSONE 50 mg PO DAILY #5 tab 05/03/19 Allergies Allergy/AdvReac Type Severity Reaction Status Date / Time No Known Allergies Allergy Verified 07/18/19 22:28 Review of Systems ROS Statement: Those systems with pertinent positive or pertinent negative responses have been documented in the HPI. ROS Other: All systems not noted in ROS Statement are negative. Past Medical History Past Medical History: Hypertension History of Any Multi-Drug Resistant Organisms: None Reported Past Surgical History: Orthopedic Surgery Additional Past Surgical History / Comment(s): 2 rt hand,lt shoulder, Past Psychological History: No Psychological Hx Reported Smoking Status: Never smoker Past Alcohol Use History: Daily, Heavy Past Drug Use History: None Reported - Past Family History Mother Family Medical History: Hypertension General Exam - General Exam Comments Initial Comments: General: The patient is awake and alert, in no distress, and does not appear acutely ill. Eye: Pupils are equal, round and reactive to light, extra-ocular movements are intact. No nystagmus. There is normal conjunctiva bilaterally. No signs of icterus. . Musculoskeletal: Normal ROM, no tenderness. Strength 5/5. Sensation intact. Pulses equal bilaterally 2+. Neurological: A&O x 3. CN II-XII intact grossly, There are no obvious motor or sensory deficits. Coordination appears grossly intact. Speech is normal. Skin: Skin is warm and dry and no rashes. 3.5cm laceration of the right lateral calf. Superficial in nature, no FB, wound edges clean, linear Psychiatric: Cooperative, appropriate mood & affect, normal judgment. Course Vital Signs 07/18/19 07/18/19 22:26 23:30 Temperature 98 F Pulse Rate 98 98 Respiratory 18 18 Rate Blood Pressure 150/107 148/92 O2 Sat by Pulse 97 97 Oximetry Procedures - Laceration Laceration #1 Consent Obtained: verbal consent Indication: laceration Site: lower extremity Size (cm): 0 (3.5 actual) Description: linear Anesthetic Used: lidocaine 1% Anesthesia Technique: local infiltration Amount (mls): 1 Pre-repair: wound explored, irrigated extensively, deep structures intact Type of Sutures: nylon Size of Sutures: 4-0 Number of Sutures: 7 Technique: simple, interrupted Patient Tolerated Procedure: well, no complications Medical Decision Making - Medical Decision Making 38 yo Male presenting for laceration that would not stop bleeding. After injection with lidocaine with epinephrine bleeding stopped laceration repair total 7 sutures. It was cleansed extensively explored prior to closure no foreign body wound edges approximate well. Tetanus up-to-date per patient patient discharged Disposition Clinical Impression: Leg laceration Disposition: HOME SELF-CARE Condition: Good Instructions (If sedation given, give patient instructions): Care For Your Stitches (ED), Laceration (ED) Additional Instructions: Please use medication as discussed. Please follow-up with family doctor in the next 2 days, have suture removed here or by PCP in 7-10 days. Please return to emergency room if the symptoms increase or worsen or for any other concerns. Is patient prescribed a controlled substance at d/c from ED?: No Referrals: Carlos Enrique Crowder MD [Primary Care Provider] - 1-2 days Time of Disposition: 23:21
[2019-07-18 23:33] VITALS: BP 148/92
== END 2019-07-18 23:31 | disposition home or self-care (01) ==
LOC: EC 22:19
DX: S81.811A Laceration without foreign body, right lower leg, initial encounter (principal); I10 Essential (primary) hypertension; Z79.899 Other long term (current) drug therapy; W26.8XXA Contact with other sharp object(s), not elsewhere classified, initial encounter; Y92.69 Other specified industrial and construction area as the place of occurrence of the external cause; Y99.0 Civilian activity done for income or pay
CPT/HCPCS: 12002; 99282

== ENCOUNTER 2019-09-25 13:37 | Emergency (ER) | payer OTHER ==
[2019-09-25 13:42] VITALS: BP 130/88; PULSE 75; RESP 18; TEMP 98
[2019-09-25] MEDS ORDERED: LIDOCAINE 1% INJ 10MG/ML (20 ML MDV) SQ ONE (14:07)
--- NOTE | 2019-09-25 14:12 | ED ---
General Adult HPI - General Chief complaint: Wound/Laceration Stated complaint: L Leg Lac Time Seen by Provider: 09/25/19 14:02 Source: patient, RN notes reviewed, old records reviewed Mode of arrival: ambulatory Limitations: no limitations - History of Present Illness Initial comments: Patient is a 39-year-old male who presents the emergency department today for evaluation for concern for laceration over the lateral aspect of his right leg. Patient reports that he was pulling a knife tripped and fell hitting his lateral lower leg on the knife. Patient states he's had no fevers or chills, reports normal sensation to the lower extremity. Patient is on a blood thinners. Patient denies any pain with range of motion. patient's tetanus shot is up-to-date. - Related Data Home Medications Medication Instructions Recorded Confirmed amLODIPine BESYLATE/BENAZEPRIL 1 cap PO DAILY 03/25/18 08/28/18 [Lotrel 10-40 MG] Previous Rx's Medication Instructions Recorded Cephalexin [Keflex] 500 mg PO Q6HR #28 cap 08/28/18 Ibuprofen [Motrin] 600 mg PO Q8HR PRN #20 tab 05/03/19 predniSONE 50 mg PO DAILY #5 tab 05/03/19 Allergies Allergy/AdvReac Type Severity Reaction Status Date / Time No Known Allergies Allergy Verified 09/25/19 13:42 Review of Systems ROS Statement: Those systems with pertinent positive or pertinent negative responses have been documented in the HPI. ROS Other: All systems not noted in ROS Statement are negative. Past Medical History Past Medical History: Hypertension History of Any Multi-Drug Resistant Organisms: None Reported Past Surgical History: Orthopedic Surgery Additional Past Surgical History / Comment(s): 2 rt hand,lt shoulder, Past Psychological History: No Psychological Hx Reported Smoking Status: Never smoker Past Alcohol Use History: Daily, Heavy Past Drug Use History: None Reported - Past Family History Mother Family Medical History: Hypertension General Exam - General Exam Comments Initial Comments: 31-year-old male presented to return today with left leg laceration. Alert and oriented. No distress. Limitations: no limitations General appearance: alert, in no apparent distress Head exam: Present: atraumatic, normocephalic, normal inspection Eye exam: Present: normal appearance, PERRL, EOMI. Absent: scleral icterus, conjunctival injection, periorbital swelling ENT exam: Present: normal exam, mucous membranes moist Neck exam: Present: normal inspection. Absent: tenderness, meningismus, lymphadenopathy Respiratory exam: Present: normal lung sounds bilaterally. Absent: respiratory distress, wheezes, rales, rhonchi, stridor Cardiovascular Exam: Present: regular rate, normal rhythm, normal heart sounds. Absent: systolic murmur, diastolic murmur, rubs, gallop, clicks GI/Abdominal exam: Present: soft, normal bowel sounds. Absent: distended, tenderness, guarding, rebound, rigid Extremities exam: Present: normal inspection, full ROM, normal capillary refill, other (Patient has a 4 cm lateral left lower leg laceration. Laceration is superficial and linear. No muscle or tendon involvement.). Absent: tenderness, pedal edema, joint swelling, calf tenderness Back exam: Present: normal inspection Neurological exam: Present: alert, oriented X3, CN II-XII intact Psychiatric exam: Present: normal affect, normal mood Course Vital Signs 09/25/19 13:38 Temperature 98.0 F Pulse Rate 75 Respiratory 18 Rate Blood Pressure 130/88 O2 Sat by Pulse 98 Oximetry Procedures - Laceration Laceration #1 Site: lower extremity (left leg) Size (cm): 5 Description: linear Depth: simple, single layer Anesthetic Used: lidocaine 1% Anesthesia Technique: local infiltration Amount (mls): 8 Pre-repair: wound explored, irrigated extensively Type of Sutures: nylon Size of Sutures: 5-0 Number of Sutures: 8 Technique: simple, interrupted Patient Tolerated Procedure: well, no complications Medical Decision Making - Medical Decision Making 31-year-old male presents for his first today with left leg laceration. Laceration was thoroughly irrigated and closed with 8 sutures. Patient's has tetanus shot up-to-date at this time. He was was thoroughly cleaned. Discussed monitoring for infection and suture care. All questions answered. Disposition Clinical Impression: Leg laceration Disposition: HOME SELF-CARE Condition: Good Instructions (If sedation given, give patient instructions): Care For Your Stitches (ED) Additional Instructions: Please return to the emergency room in 8-10 days to have sutures removed. Please leave wound covered for the first 24-48 hours and then leave open to air after that time. Please use clean soap and water to clean the suture area to prevent scabbing over the top of your sutures. Please watch for any signs of infection which may include but not limited to increased pain, swelling, redness, fever or chills. Please return to the emergency room if any signs of infection do occur. Please return to the emergency room for any other concerns or complications. Is patient prescribed a controlled substance at d/c from ED?: No Referrals: Carlos Enrique Crowder MD [Primary Care Provider] - 1-2 days Time of Disposition: 14:11
== END 2019-09-25 15:14 | disposition home or self-care (01) ==
LOC: EC 13:37
DX: S81.812A Laceration without foreign body, left lower leg, initial encounter (principal); I10 Essential (primary) hypertension; Z79.899 Other long term (current) drug therapy; W26.0XXA Contact with knife, initial encounter
CPT/HCPCS: 99283; 12002; J2001

== ENCOUNTER 2020-02-25 05:40 | Inpatient (IN) | payer OTHER ==
[2020-02-25] MEDS ORDERED: PANTOPRAZOLE 40 MG/10 ML VIAL IVP STA (05:44)
--- NOTE | 2020-02-25 06:00 | ED ---
GI Bleed HPI - General Chief complaint: GI Bleed Stated complaint: GI Bleed Time Seen by Provider: 02/25/20 05:43 Source: patient, EMS Mode of arrival: EMS Limitations: no limitations - History of Present Illness Initial comments: This patient is a 39-year-old man who presents to be evaluated for GI bleeding. Patient states that tonight he started having some vomiting and noticed that there were streaks of blood. He also about 3 hours for what he had a bowel movement and passed some red blood per rectum. Patient is denying symptoms of anemia such as chest pain, dyspnea, palpitations, diaphoresis. In addition tonight the patient noted that he was jaundiced. The patient does admit to drinking on average 5 beers per day. He did have more than that over the course of last night. Patient denies history of known liver disease or history of GI bleeding. MD complaint: blood streaked emesis, gross hematochezia -: hour(s) Radiation: none Quality: cramping Consistency: intermittent, now resolved Improves with: none Worsens with: none Associated Symptoms: abdominal pain, nausea, vomiting, other (Bilateral leg edema) Treatments Prior to Arrival: none - Related Data Home Medications Medication Instructions Recorded Confirmed amLODIPine BESYLATE/BENAZEPRIL 1 cap PO DAILY 03/25/18 08/28/18 [Lotrel 10-40 MG] Previous Rx's Medication Instructions Recorded Cephalexin [Keflex] 500 mg PO Q6HR #28 cap 08/28/18 Ibuprofen [Motrin] 600 mg PO Q8HR PRN #20 tab 05/03/19 predniSONE 50 mg PO DAILY #5 tab 05/03/19 Allergies Allergy/AdvReac Type Severity Reaction Status Date / Time No Known Allergies Allergy Verified 09/25/19 13:42 Review of Systems ROS Statement: Those systems with pertinent positive or pertinent negative responses have been documented in the HPI. ROS Other: All systems not noted in ROS Statement are negative. Constitutional: Denies: fever, chills, weakness Eyes: Denies: eye pain, vision change ENT: Denies: throat pain Respiratory: Denies: cough, dyspnea, wheezes, hemoptysis Cardiovascular: Reports: edema. Denies: chest pain, palpitations, orthopnea, syncope Gastrointestinal: Reports: abdominal pain, nausea, vomiting, hematemesis, hematochezia. Denies: diarrhea, constipation, melena Genitourinary: Denies: dysuria, hematuria, testicular pain Musculoskeletal: Denies: back pain Skin: Denies: rash Neurological: Denies: headache, weakness, numbness Hematological/Lymphatic: Denies: easy bleeding Past Medical History Past Medical History: Hypertension History of Any Multi-Drug Resistant Organisms: None Reported Past Surgical History: Orthopedic Surgery Additional Past Surgical History / Comment(s): 2 rt hand,lt shoulder, Past Psychological History: No Psychological Hx Reported Smoking Status: Never smoker Past Alcohol Use History: Daily, Heavy Past Drug Use History: None Reported - Past Family History Mother Family Medical History: Hypertension General Exam Limitations: no limitations General appearance: alert, in no apparent distress Head exam: Present: atraumatic, normocephalic Eye exam: Present: normal appearance, scleral icterus. Absent: conjunctival injection ENT exam: Present: normal oropharynx Neck exam: Present: normal inspection Respiratory exam: Present: normal lung sounds bilaterally. Absent: respiratory distress, wheezes, rales, rhonchi, stridor Cardiovascular Exam: Present: regular rate, normal rhythm, normal heart sounds. Absent: systolic murmur, diastolic murmur, rubs, gallop GI/Abdominal exam: Present: soft. Absent: distended, tenderness, guarding, rebound, rigid, mass, pulsatile mass, hernia Extremities exam: Present: normal inspection, normal capillary refill. Absent: pedal edema, calf tenderness Back exam: Present: normal inspection. Absent: CVA tenderness (R), CVA tenderness (L) Neurological exam: Present: alert Skin exam: Present: warm, dry, intact. Absent: normal color (Jaundice), rash Course Vital Signs 02/25/20 02/25/20 05:43 07:28 Temperature 98.2 F 97.8 F Pulse Rate 106 H 98 Respiratory 18 18 Rate Blood Pressure 115/79 136/85 O2 Sat by Pulse 96 96 Oximetry Medical Decision Making - Lab Data Result diagrams: 02/25/20 05:53 02/25/20 05:53 Lab Results 02/25/20 02/25/20 02/25/20 Range/Units 05:44 05:49 05:53 WBC 12.2 H (3.8-10.6) k/uL RBC 3.86 L (4.30-5.90) m/uL Hgb 13.1 (13.0-17.5) gm/dL Hct 38.1 L (39.0-53.0) % MCV 98.9 (80.0-100.0) fL MCH 34.0 (25.0-35.0) pg MCHC 34.4 (31.0-37.0) g/dL RDW 14.6 (11.5-15.5) % Plt Count 123 L (150-450) k/uL MPV 9.4 Neutrophils % 65 % Lymphocytes % 20 % Monocytes % 10 % Eosinophils % 1 % Basophils % 1 % Neutrophils # 8.0 H (1.3-7.7) k/uL Lymphocytes # 2.5 (1.0-4.8) k/uL Monocytes # 1.2 H (0-1.0) k/uL Eosinophils # 0.1 (0-0.7) k/uL Basophils # 0.1 (0-0.2) k/uL Sodium (137-145) mmol/L Potassium (3.5-5.1) mmol/L Chloride (98-107) mmol/L Carbon Dioxide (22-30) mmol/L Anion Gap mmol/L BUN (9-20) mg/dL Creatinine (0.66-1.25) mg/dL Est GFR (CKD-EPI)AfAm (>60 ml/min/1.73 sqM) Est GFR (CKD-EPI)NonAf (>60 ml/min/1.73 sqM) Glucose (74-99) mg/dL Plasma Lactic Acid Adiel (0.7-2.0) mmol/L Calcium (8.4-10.2) mg/dL Total Bilirubin (0.2-1.3) mg/dL AST (17-59) U/L ALT (4-49) U/L Alkaline Phosphatase (38-126) U/L Ammonia (<30) umol/L Troponin I (0.000-0.034) ng/mL Total Protein (6.3-8.2) g/dL Albumin (3.5-5.0) g/dL Lipase (23-300) U/L Serum Alcohol mg/dL Blood Type O Positive Blood Type Confirm O Positive Blood Type Recheck No Previous Record Bld Type Recheck Status CABO Indicated Antibody Screen NEGATIVE Spec Expiration Date 02/28/2020234302/25/2027/20 12/27/20 Range/Units 05:53 05:53 05:53 WBC (3.8-10.6) k/uL RBC (4.30-5.90) m/uL Hgb (13.0-17.5) gm/dL Hct (39.0-53.0) % MCV (80.0-100.0) fL MCH (25.0-35.0) pg MCHC (31.0-37.0) g/dL RDW (11.5-15.5) % Plt Count (150-450) k/uL MPV Neutrophils % % Lymphocytes % % Monocytes % % Eosinophils % % Basophils % % Neutrophils # (1.3-7.7) k/uL Lymphocytes # (1.0-4.8) k/uL Monocytes # (0-1.0) k/uL Eosinophils # (0-0.7) k/uL Basophils # (0-0.2) k/uL Sodium 120 L (137-145) mmol/L Potassium 3.8 (3.5-5.1) mmol/L Chloride 90 L (98-107) mmol/L Carbon Dioxide 21 L (22-30) mmol/L Anion Gap 9 mmol/L BUN 5 L (9-20) mg/dL Creatinine 0.49 L (0.66-1.25) mg/dL Est GFR (CKD-EPI)AfAm >90 (>60 ml/min/1.73 sqM) Est GFR (CKD-EPI)NonAf >90 (>60 ml/min/1.73 sqM) Glucose 78 (74-99) mg/dL Plasma Lactic Acid Adiel 1.8 (0.7-2.0) mmol/L Calcium 7.4 L (8.4-10.2) mg/dL Total Bilirubin 8.2 H (0.2-1.3) mg/dL AST 182 H (17-59) U/L ALT 30 (4-49) U/L Alkaline Phosphatase 145 H (38-126) U/L Ammonia 26 (<30) umol/L Troponin I <0.012 (0.000-0.034) ng/mL Total Protein 7.9 (6.3-8.2) g/dL Albumin 2.7 L (3.5-5.0) g/dL Lipase 571 H (23-300) U/L Serum Alcohol 144 mg/dL Blood Type Blood Type Confirm Blood Type Recheck Bld Type Recheck Status Antibody Screen Spec Expiration Date - EKG Data -: EKG Interpreted by Me EKG shows normal: sinus rhythm, axis (Normal), intervals (Normal), QRS complexes (Normal), ST-T waves (Normal) Rate: normal (Rate 98 bpm) Interpretation: normal EKG Disposition Clinical Impression: Hyponatremia, GI bleeding, Jaundice Disposition: ADMITTED IP TO THIS HOSP Condition: Fair Referrals: Carlos Enrique Crowder MD [Primary Care Provider] - 1-2 days
[2020-02-25 06:28] LABS: Basophils # (A) 0.1 k/uL (0-0.2); Basophils % (A) 1 %; Eosinophils # (A) 0.1 k/uL (0-0.7); Eosinophils % (A) 1 %; HCT 38.1 % (39.0-53.0); HGB 13.1 gm/dL (13.0-17.5); Lymphocytes # (A) 2.5 k/uL (1.0-4.8); Lymphocytes % (A) 20 %; MCHC 34.4 g/dL (31.0-37.0); MCV 98.9 fL (80.0-100.0); Mean Platelet Volume 9.4; Monocytes # (A) 1.2 k/uL (0-1.0); Monocytes % (A) 10 %; Neutrophils % (A) 65 %; Platelet Count 123 k/uL (150-450); RBC 3.86 m/uL (4.30-5.90); RDW 14.6 % (11.5-15.5); WBC 12.2 k/uL (3.8-10.6)
[2020-02-25 06:51] LABS: Lactic Acid, Venous 1.8 mmol/L (0.7-2.0)
[2020-02-25 06:54] LABS: ALT 30 U/L (4-49); AST 182 U/L (17-59); African American GFR (CKD) >90 (>60 ml/min/1.73 sqM); Albumin 2.7 g/dL (3.5-5.0); Alkaline Phosphatase 145 U/L (38-126); Anion Gap 9 mmol/L; Blood Urea Nitrogen 5 mg/dL (9-20); Calcium 7.4 mg/dL (8.4-10.2); Carbon Dioxide 21 mmol/L (22-30); Chloride 90 mmol/L (98-107); Glucose 78 mg/dL (74-99); Lipase 571 U/L (23-300); Non-African American GFR(CKD) >90 (>60 ml/min/1.73 sqM); Potassium 3.8 mmol/L (3.5-5.1); Sodium 120 mmol/L (137-145); Total Bilirubin 8.2 mg/dL (0.2-1.3); Total Protein 7.9 g/dL (6.3-8.2)
[2020-02-25 07:02] LABS: Alcohol 144 mg/dL
[2020-02-25] MEDS ORDERED: ONDANSETRON 4 MG/2 ML VIAL IVP PRN (07:25)
[2020-02-25] MEDS ORDERED: NALOXONE 0.4 MG/ML 1 ML VIAL IV PRN (07:25)
[2020-02-25 07:29] LABS: Partial Thromboplastin Time 38.2 sec (22.0-30.0); Prothrombin Time 19.5 sec (9.0-12.0)
[2020-02-25] MEDS ORDERED: LORazepam 2 MG/ML INJ IV PRN (07:29)
[2020-02-25] MEDS ORDERED: THIAMINE 100 MG/ML 2 ML VIAL IM STA (07:29)
[2020-02-25] MEDS ORDERED: SODIUM CHLORIDE 0.9% 1,000 ML IV SCH (07:30)
[2020-02-25] MEDS: MORPHINE SULFATE 4 MG/ML SYRINGE IVP PRN ×2 (10:51→23:38)
[2020-02-25] MEDS ORDERED: MELATONIN 3 MG TABLET PO PRN (11:15)
[2020-02-25] MEDS ORDERED: ACETAMINOPHEN TAB 325 MG TAB PO PRN (11:15)
[2020-02-25] MEDS: LORazepam 2 MG/ML INJ IV PRN ×2 (11:16→20:21)
[2020-02-25 11:31] LABS: HCT 35.9 % (39.0-53.0); HGB 12.5 gm/dL (13.0-17.5); MCH 34.6 pg (25.0-35.0); MCHC 34.9 g/dL (31.0-37.0); Mean Platelet Volume 9.1; Platelet Count 103 k/uL (150-450); RBC 3.62 m/uL (4.30-5.90); RDW 14.5 % (11.5-15.5); WBC 10.6 k/uL (3.8-10.6)
[2020-02-25 11:48] LABS: ALT 27 U/L (4-49); AST 169 U/L (17-59); African American GFR (CKD) >90 (>60 ml/min/1.73 sqM); Albumin 2.5 g/dL (3.5-5.0); Albumin/Globulin Ratio 0.5; Alkaline Phosphatase 118 U/L (38-126); Anion Gap 5 mmol/L; Blood Urea Nitrogen 5 mg/dL (9-20); Calcium 7.1 mg/dL (8.4-10.2); Carbon Dioxide 20 mmol/L (22-30); Chloride 91 mmol/L (98-107); Globulin 4.8 g/dL; Glucose 73 mg/dL (74-99); Non-African American GFR(CKD) >90 (>60 ml/min/1.73 sqM); Total Bilirubin 7.6 mg/dL (0.2-1.3); Total Protein 7.3 g/dL (6.3-8.2)
[2020-02-25 11:59] LABS: Sodium 116 mmol/L (137-145)
--- NOTE | 2020-02-25 12:06 | US ---
EXAMINATION TYPE: US liver DATE OF EXAM: 02/25/2020 COMPARISON: 03/30/2017 CLINICAL HISTORY: 39-year-old male left upper quadrant pain, ascites assessment. ABD pain and distens ion, h/o ETOH abuse, elevated LFT's TECHNIQUE: Multiple sonographic images of the right upper quadrant are obtained. FINDINGS: EXAM MEASUREMENTS: Liver Length: 22.8 cm Gallbladder Wall: 0.7 cm CBD: 0.5 cm Right Kidney: 14.4 x 6.5 x 7.5 cm Pancreas: Obscured by bowel gas Liver: Enlarged, difficult to penetrate, heterogeneous, nodular contour Gallbladder: Distended with sludge and thickened wall Evidence for sonographic Lugo's sign: No CBD: wnl Right Kidney: Prominent size. No hydronephrosis. Mild abdominal ascites is noted, greatest along the right flank. IMPRESSION: 1. Hepatomegaly (22.8 cm). Nodular contour suggests underlying cirrhosis. 2. Hydropic gallbladder with thickened wall and tumefactive sludge. Sonographic Lugo's sign is repo rted absent. Findings may represent chronic cholecystitis. If concern for acute cholecystitis, HIDA s can can be performed. 3. No ductal dilatation. 4. Mild abdominal ascites.
--- NOTE | 2020-02-25 13:57 | P.HPIM ---
History of Present Illness H&P Date: 02/25/20 Chief Complaint: vomiting blood Patient is a 39-year-old male with a history of fatty infiltration of the liver, hypertension, and alcohol abuse who presented to the emergency department secondary to abdominal pain, vomiting of bright red blood, and bright red blood per rectum. In the ER he underwent an extensive evaluation. Initially was tachycardic with a pulse of 106. Laboratory analysis showed a white blood cell count of 12.2, sodium 120, carbon dioxide 2121 5, creatinine 0.49, calcium 7.4, bilirubin 8.2, AST 182, ALT 30, alkaline phosphatase 145, lipase 571. His serum alcohol level was normal at 144. His INR came back elevated at 2. In the ER he was given a dose of IV Protonix and was started on IV fluids. It ranges are made for admission. Patient seen and examined at bedside. This morning at 1 am vomiting blood occurred 4 more times. Bright red blood per rectum X 1. Increased abdominal distension and hard noted this morning. Pain let side of abdomen that occurred yesterday does not move. No fevers of chills + shortness of breath that is intermittent for 1 day No chest pain, + chronic cough unchanged. numbness bilateral feet- believes that it is due to drinking. 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 + Jaundice yesterday Decreased appetite. Still following with Dr. Crowder. Last visit 1.5 yeas ago. 35 beers a week. Has cut back from 12 beers daily. Review of Systems Pertinent positives and negatives as discussed in HPI, a complete review of systems was performed and all other systems are negative. Past Medical History Past Medical History: Hypertension Additional Past Medical History / Comment(s): fatty liver disease, Alcohol abuse History of Any Multi-Drug Resistant Organisms: None Reported Past Surgical History: Orthopedic Surgery Additional Past Surgical History / Comment(s): 2 rt hand,lt shoulder, Past Psychological History: No Psychological Hx Reported Smoking Status: Never smoker Past Alcohol Use History: Daily, Heavy Past Drug Use History: None Reported - Past Family History Mother Family Medical History: Hypertension Father Family Medical History: CVA/TIA Medications and Allergies Home Medications Medication Instructions Recorded Confirmed Type amLODIPine BESYLATE/BENAZEPRIL 1 cap PO DAILY 03/25/18 02/25/20 History [Lotrel 10-40 MG] Allergies Allergy/AdvReac Type Severity Reaction Status Date / Time No Known Allergies Allergy Verified 02/25/20 07:55 Physical Exam Osteopathic Statement: *. No significant issues noted on an osteopathic structural exam other than those noted in the History and Physical/Consult. Vitals: Vital Signs Temp Pulse Resp BP Pulse Ox 02/25/20 09:00 98.7 F 92 18 135/85 96 02/25/20 07:28 97.8 F 98 18 136/85 96 02/25/20 05:43 98.2 F 106 H 18 115/79 96 Intake and Output 02/24/20 02/25/20 02/25/20 22:59 06:59 14:59 Other: Weight 107.048 kg General: non toxic, no distress, appears older than stated age Derm: + Jaundiced, + petechial hemorrhage abdominal area, + caput medusa, warm, dry Head: atraumatic, normocephalic, symmetric Eyes: EOMI, no lid lag, + icteric sclera, pupils equal round reactive to light ENT: Nose and ears atraumatic, no thrush, no pharyngeal erythema Neck: No thyromegaly, no cervical lymphadenopathy, trachea midline, supple Mouth: + multiple perioral hemorrhages, mucus membranes dry Cardiovascular: S1S2 reg, no murmur, positive posterior tibial pulse bilateral, 2+ edema, capillary refill less than 2 seconds Lungs: Crackles bilateral bases, no ronchi, no rales, no wheeze, no accessory muscle use Abdominal: soft, + distended, + tender to palpation RUQ, no guarding, no appr eciable organomegaly, normal bowel sounds Ext: no gross muscle atrophy, muscle strength muscle strength 5 out of 5 in all 4 extremities, no contractures Neuro: CN II-XI grossly intact, light touch intact all 4 extremities, finger to nose within normal limits, + tremors Psych: Alert, oriented, appropriate affect Results CBC & Chem 7: 02/25/20 11:21 02/25/20 11:21 Labs: Abnormal Lab Results - Last 24 Hours (Table) 02/25/20 02/25/20 02/25/20 Range/Units 05:53 05:53 05:53 WBC 12.2 H (3.8-10.6) k/uL RBC 3.86 L (4.30-5.90) m/uL Hct 38.1 L (39.0-53.0) % Plt Count 123 L (150-450) k/uL Neutrophils # 8.0 H (1.3-7.7) k/uL Monocytes # 1.2 H (0-1.0) k/uL PT 19.5 H (9.0-12.0) sec INR 2.0 H (<1.2) APTT 38.2 H (22.0-30.0) sec Sodium 120 L (137-145) mmol/L Chloride 90 L (98-107) mmol/L Carbon Dioxide 21 L (22-30) mmol/L BUN 5 L (9-20) mg/dL Creatinine 0.49 L (0.66-1.25) mg/dL Calcium 7.4 L (8.4-10.2) mg/dL Total Bilirubin 8.2 H (0.2-1.3) mg/dL AST 182 H (17-59) U/L Alkaline Phosphatase 145 H (38-126) U/L Albumin 2.7 L (3.5-5.0) g/dL Lipase 571 H (23-300) U/L Chest x-ray: report reviewed Thrombosis Risk Factor Assmnt - DVT/VTE Prophylaxis DVT/VTE Prophylaxis: Mechanical Prophylaxis ordered Assessment and Plan Assessment: Acute on chronic liver disease - suspect decompenstaed cirrhosis due to ETOH: check Hep profile, ferritin, SOLEDAD, AMA, - Ordered livers US which showed mild ascities, gallbladder hydrops without CBD dilatation - Lasix IVP - Consult GI - Abstain from ETOH Upper GI bleed - Protonix IVP BID - NPO after midnight - GI consult - serial CBC - if drop in HgB or bleeding begins again start octreotide ETOH withdrawal, imprnding DTs - CIWA with ativan - Thiamine - Folic acid - social work consult - abstain from alcohol Hyponatremia - due to hypervolemia - Lasix - Consult Nephro - Serial sodium levels - Check urine sodium, osmol, serum osmol nueorpathy - Check B 12 - Suspect alcohol induced - IV thiamine daily Obesity with BMI 32 - abstain from ETOH HTN - resume norvasc and benzapril Social stressors - no insurance, out of work as he works in [place] The patient is admitted with an anticipated greater than 2 midnight stay for evaluation of Liver failure, GI bleed. Surrogate decision-maker: Mother CODE STATUS:FUll DVT prophylaxis: SCDs Discussed with: Patient, ED nursing, ED physician Anticipated discharge date: 4-[address]: home vs substance abuse rehab A total of 35 minutes was spent on the care of this complex patient more than 50% of the time was spent in counseling and care coordination.
[2020-02-25] MEDS: FUROSEMIDE 10 MG/ML 4 ML VIAL IV SCH ×2 (14:12→20:21)
[2020-02-25 17:28] LABS: HGB 12.4 gm/dL (13.0-17.5); MCH 32.2 pg (25.0-35.0); MCHC 31.8 g/dL (31.0-37.0); MCV 101.3 fL (80.0-100.0); Macrocytosis Slight; Mean Platelet Volume 8.4; Platelet Count 102 k/uL (150-450); RBC 3.85 m/uL (4.30-5.90); WBC 9.6 k/uL (3.8-10.6)
[2020-02-25] MEDS ORDERED: THIAMINE 100 MG TAB PO SCH (17:30)
[2020-02-25 17:47] LABS: African American GFR (CKD) >90 (>60 ml/min/1.73 sqM); Anion Gap 9 mmol/L; Blood Urea Nitrogen 4 mg/dL (9-20); Calcium 6.9 mg/dL (8.4-10.2); Carbon Dioxide 21 mmol/L (22-30); Chloride 90 mmol/L (98-107); Glucose 66 mg/dL (74-99); Non-African American GFR(CKD) >90 (>60 ml/min/1.73 sqM); Potassium 3.9 mmol/L (3.5-5.1); Sodium 120 mmol/L (137-145)
[2020-02-25] MEDS: PANTOPRAZOLE 40 MG/10 ML VIAL IV SCH (20:21)
[2020-02-26 02:59] LABS: HGB 12.2 gm/dL (13.0-17.5); MCH 33.1 pg (25.0-35.0); MCV 100.4 fL (80.0-100.0); Macrocytosis Slight; Mean Platelet Volume 9.4; Platelet Count 105 k/uL (150-450); RBC 3.68 m/uL (4.30-5.90); WBC 9.4 k/uL (3.8-10.6)
[2020-02-26 03:20] LABS: African American GFR (CKD) >90 (>60 ml/min/1.73 sqM); Anion Gap 7 mmol/L; Blood Urea Nitrogen 7 mg/dL (9-20); Calcium 6.8 mg/dL (8.4-10.2); Carbon Dioxide 26 mmol/L (22-30); Chloride 87 mmol/L (98-107); Glucose 78 mg/dL (74-99); Non-African American GFR(CKD) >90 (>60 ml/min/1.73 sqM); Potassium 3.3 mmol/L (3.5-5.1); Sodium 120 mmol/L (137-145)
[2020-02-26] MEDS: LORazepam 2 MG/ML INJ IV PRN ×5 (04:09→23:41)
[2020-02-26 04:20] LABS: T4, Free (Free Thyroxine) 2.52 ng/dL (0.78-2.19)
[2020-02-26] MEDS: PANTOPRAZOLE 40 MG/10 ML VIAL IV SCH ×2 (07:23→20:33)
[2020-02-26] MEDS: THIAMINE 100 MG/ML 2 ML VIAL IVP SCH (07:23)
[2020-02-26] MEDS: lisinopriL 20 MG TAB PO SCH (07:23)
[2020-02-26] MEDS: FUROSEMIDE 10 MG/ML 4 ML VIAL IV SCH ×2 (07:23→20:34)
[2020-02-26] MEDS: amLODIPine 10 MG TAB PO SCH (07:24)
[2020-02-26] MEDS: FOLIC ACID 1 MG TAB PO SCH (07:24)
[2020-02-26] MEDS ORDERED: PANTOPRAZOLE 40 MG/10 ML VIAL IV SCH (09:00)
[2020-02-26 09:28] LABS: INR 1.87 (0.90-1.11); Prothrombin Time 19.3 sec (9.9-11.9)
[2020-02-26 09:58] LABS: Hepatitis A Antibody IgM Non-Reactive (Non-Reactive); Hepatitis B Core IgM Non-Reactive (Non-Reactive); Hepatitis B Surface Antigen Non-Reactive (Non-Reactive); Hepatitis C IgG Antibody Non-Reactive (Non-Reactive)
[2020-02-26] MEDS ORDERED: Potassium Replacement Protocol 1 EACH MISC MISCELLANE PRN (10:18)
[2020-02-26] MEDS: POTASSIUM CHLORIDE ER 20 MEQ TAB.ER PO SCH ×2 (10:55→11:36)
--- NOTE | 2020-02-26 13:51 | CONS ---
CONSULTATION REASON FOR CONSULT: Hyponatremia. HISTORY OF PRESENT ILLNESS: The patient is a 39-year-old male who was admitted to the hospital with complaints of nausea and vomiting. He did notice bright red blood per rectum and he vomited bright red blood as well. The patient denies any prior history of kidney diseases. He was noticed to be significantly jaundiced on admission with lipase of 571, bilirubin 8.2. Serum alcohol level was not elevated. INR was elevated at 2. The patient denies any prior history of low sodium. He denies use of any diuretics at home prior to admission. The patient's sodium was 120. It did go down to 116 after initial fluid administration and then now he is maintained on IV Lasix. Serum sodium is now at about 120. The patient has good urine output. He has an indwelling High catheter. PAST MEDICAL HISTORY: Hypertension, maintained on Norvasc. No previous history of liver problems or hyponatremia. PAST SURGICAL HISTORY: Right hand surgery, left shoulder surgery. SOCIAL HISTORY: Negative for smoking. Positive for heavy alcohol abuse. MEDICATIONS: Medications include amlodipine prior to admission. ALLERGIES: None. REVIEW OF SYSTEMS: As per HPI. Other systems negative. PHYSICAL EXAMINATION: On examination, patient is comfortable, awake, alert, oriented x3, not in any acute distress. Blood pressure was 146/82, heart rate 109 per minute. Patient is afebrile. EXAMINATION OF THE HEART: S1, S2. EXAMINATION OF THE LUNGS: Bilateral breath sounds are heard. Abdomen is soft, nontender. Abdomen is distended with ascites. Examination of lower extremities shows edema 1+ bilaterally. RUNNING RIGGER EXAM: Grossly intact. LABS: Labs show sodium 120 today, potassium 3.3, chloride 87, BUN 7, serum creatinine 0.48. Urine osmolality 293. TSH 8.6. INR 1.87. ASSESSMENT: 1. Hyponatremia currently hypervolemic associated with underlying liver cirrhosis and portal hypertension seen. Serum sodium had worsened with IV fluids. Currently maintained on IV Lasix. Sodium staying at about 120. I will continue with the IV Lasix. I will also add a dose of tolvaptan. Continue off of IV fluids. 2. Liver cirrhosis with portal hypertension, ascites and jaundice with history of heavy alcohol abuse. GI to be consulted. 3. History of hypertension, maintained on Norvasc. 4. Gastrointestinal bleed, maintained on proton pump inhibitors. No active bleeding since hospitalization. PLAN: Continue off of IV fluids. Continue with the IV Lasix. Increase protein intake to help with the hyponatremia. Add dose of tolvaptan. Maintain some degree of free water restriction. Repeat sodium this evening. Thank you for this consultation. Will continue to follow the patient with you during his hospitalization. MMODL / IJN: [id number] /
[2020-02-26] MEDS ORDERED: TOLVAPTAN 15 MG 1/2 TABLET PO ONE ×2 (14:30→15:18)
--- NOTE | 2020-02-26 16:19 | P.CONS ---
History of Present Illness - Reason for Consult Consult date: 02/26/20 Acute alcoholic hepatitis Requesting physician: Maxine Pa - Chief Complaint Abdominal pain, hematemesis - History of Present Illness 39-year-old male with a medical history significant for hypertension and alcohol abuse who presented to the hospital due to complaints of abdominal pain and vomiting of blood. The patient reports multiple episodes of painless vomiting of blood. The patient has a known history of alcohol abuse previously drinking up to 12 beers daily, he reports he has tried to cut back on his total consumption. He denies any signs or symptoms of decompensated alcohol liver disease in the past including encephalopathy, jaundice, GI bleeding or ascites. No prior endoscopy. Currently is reporting that abdominal pain is improved and no further episodes of hematemesis. He also had some painless bright red blood per rectum on presentation which she reports resolved. Laboratory evaluation significant for WBC of 9.4, hemoglobin stable at 12.2 from 12.4 previously, INR 1.88, platelet count 105,000, acute viral hepatitis testing negative, total bilirubin 7.6, alkaline phosphatase 118, AST 169 and ALT 27 with sodium severely depressed at 120. Ultrasound of the abdomen showed hepatomegaly and a cirrhotic appearing liver with mild ascites. Review of Systems REVIEW OF SYSTEMS: CONSTITUTIONAL: Denies any fevers, chills, weight change or fatigue. CARDIOVASCULAR: Denies any chest pain, palpitations high or low blood pressures RESPIRATORY: Denies any shortness of breath, hemoptysis or cough. GENITOURINARY: No dysuria or hematuria, but he does report dark urine. MUSCULOSKELETAL: No weakness reported. SKIN: Denies any new rashes or lesions, he is reporting jaundice. PSYCHIATRIC: Denies any depression or anxiety, he does have a known history of alcohol abuse. NEUROLOGY: Denies headache, denies any new focal deficits. EARS/NOSE/THROAT: No recent hearing change, congestion, nasal discharge or sore throat. EYES: No pain in eyes, discharge or change in vision. GASTROINTESTINAL: As per HPI. Past Medical History Past Medical History: Hypertension Additional Past Medical History / Comment(s): fatty liver disease, Alcohol abuse History of Any Multi-Drug Resistant Organisms: None Reported Past Surgical History: Orthopedic Surgery Additional Past Surgical History / Comment(s): rt hand, 2 lt shoulder, Past Anesthesia/Blood Transfusion Reactions: No Reported Reaction Past Psychological History: No Psychological Hx Reported Smoking Status: Never smoker Past Alcohol Use History: Daily, Heavy Past Drug Use History: None Reported - Past Family History Mother Family Medical History: Hypertension Father Family Medical History: CVA/TIA Medications and Allergies Home Medications Medication Instructions Recorded Confirmed Type amLODIPine BESYLATE/BENAZEPRIL 1 cap PO DAILY 03/25/18 02/25/20 History [Lotrel 10-40 MG] Allergies Allergy/AdvReac Type Severity Reaction Status Date / Time No Known Allergies Allergy Verified 02/25/20 07:55 Physical Exam Vitals: Vital Signs Temp Pulse Pulse Resp BP BP Pulse Ox 02/26/20 08:00 97.9 F 109 H 16 146/82 94 L 02/26/20 02:36 98.2 F 101 H 16 146/91 94 L 02/25/20 19:50 98.3 F 98 14 121/76 94 L 02/25/20 19:40 16 02/25/20 14:55 97.8 F 98 17 142/79 97 02/25/20 14:14 88 18 127/88 100 Intake and Output 02/25/20 02/26/20 02/26/20 22:59 06:59 14:59 Output Total 1200 550 Balance -1200 -550 Output: Urine 1200 550 Other: Voiding Method Indwelling Catheter Indwelling Catheter # Voids 2 2 Weight 107.048 kg On physical examination, patient appears comfortable in no apparent distress. HEAD: Normocephalic, atraumatic. EYES: Scleral icterus. No conjunctival injection. MOUTH: No lesions, tongue midline. NECK: Trachea midline, no gross abnormalities. CHEST: Clear to auscultation with no wheezing or rhonchi appreciated. HEART: Regular rate and rhythm. ABDOMEN: Soft, mildly distended and nontender. Bowel sounds are positive. No organomegaly. No guarding or rigidity. EXTREMITIES: Bilateral pedal edema. SKIN: No rashes, jaundice. NEUROLOGIC: Alert and oriented x3. Tremulousness noted with no asterixis. No focal deficits. Results CBC & Chem 7: 02/26/20 02:31 02/26/20 13:45 Labs: Abnormal Lab Results - Last 24 Hours (Table) 02/25/20 02/25/20 02/25/20 Range/Units 17:10 17:10 20:01 RBC 3.85 L (4.30-5.90) m/uL Hgb 12.4 L (13.0-17.5) gm/dL Hct (39.0-53.0) % MCV 101.3 H (80.0-100.0) fL Plt Count 102 L (150-450) k/uL PT (9.9-11.9) sec INR (0.90-1.11) Sodium 120 L 118 L* (137-145) mmol/L Potassium (3.5-5.1) mmol/L Chloride 90 L (98-107) mmol/L Carbon Dioxide 21 L (22-30) mmol/L BUN 4 L (9-20) mg/dL Creatinine 0.48 L (0.66-1.25) mg/dL Glucose 66 L (74-99) mg/dL Calcium 6.9 L (8.4-10.2) mg/dL Ferritin (22.0-322.0) ng/mL TSH (0.465-4.680) mIU/L Free T4 (0.78-2.19) ng/dL 02/26/20 02/26/20 02/26/20 Range/Units 02:31 02:31 02:31 RBC 3.68 L (4.30-5.90) m/uL Hgb 12.2 L (13.0-17.5) gm/dL Hct 37.0 L (39.0-53.0) % MCV 100.4 H (80.0-100.0) fL Plt Count 105 L (150-450) k/uL PT (9.9-11.9) sec INR (0.90-1.11) Sodium 120 L (137-145) mmol/L Potassium 3.3 L (3.5-5.1) mmol/L Chloride 87 L (98-107) mmol/L Carbon Dioxide (22-30) mmol/L BUN 7 L (9-20) mg/dL Creatinine 0.48 L (0.66-1.25) mg/dL Glucose (74-99) mg/dL Calcium 6.8 L (8.4-10.2) mg/dL Ferritin (22.0-322.0) ng/mL TSH 8.640 H (0.465-4.680) mIU/L Free T4 2.52 H (0.78-2.19) ng/dL 02/26/20 02/26/20 02/26/20 Range/Units 02:31 02:31 08:22 RBC (4.30-5.90) m/uL Hgb (13.0-17.5) gm/dL Hct (39.0-53.0) % MCV (80.0-100.0) fL Plt Count (150-450) k/uL PT 19.3 H (9.9-11.9) sec INR 1.87 H (0.90-1.11) Sodium 120 L (137-145) mmol/L Potassium (3.5-5.1) mmol/L Chloride (98-107) mmol/L Carbon Dioxide (22-30) mmol/L BUN (9-20) mg/dL Creatinine (0.66-1.25) mg/dL Glucose (74-99) mg/dL Calcium (8.4-10.2) mg/dL Ferritin 1402.1 H (22.0-322.0) ng/mL TSH (0.465-4.680) mIU/L Free T4 (0.78-2.19) ng/dL US - abdomen: report reviewed (Ultrasound of the abdomen with findings of hepatomegaly and a cirrhotic appearing liver with mild ascites) Assessment and Plan (1) Acute alcoholic hepatitis Narrative/Plan: 39-year-old male with a known history of alcohol abuse presenting for hematemesis and abdominal pain. Patient has a significant history of alcohol abuse in the past and continues to consume alcohol although he reports he has tried to cut down. He had multiple episodes of bright red blood in his vomitus prior to presentation however hemoglobin has remained stable at 12.2 from 12.4 with no significant elevation in BUN. Liver enzymes are markedly elevated and consistent with acute alcoholic hepatitis with total bilirubin 7.6, alkaline phosphatase 118, AST 169 and ALT 27. Acute viral hepatitis panel testing and SOLEDAD were negative. Ultrasound of the abdomen showed hepatomegaly with possible cirrhotic changes and mild ascites. No further episodes of hematemesis or bright red blood per rectum today. Current Visit: Yes Status: Acute Code(s): K70.10 - ALCOHOLIC HEPATITIS WITHOUT ASCITES SNOMED Code(s): 9076281 (2) Hematemesis Current Visit: Yes Status: Acute Code(s): K92.0 - HEMATEMESIS SNOMED Code(s): 3131913 (3) Elevated liver enzymes Current Visit: Yes Status: Acute Code(s): R74.8 - ABNORMAL LEVELS OF OTHER SERUM ENZYMES SNOMED Code(s): 646071336 Plan: Supportive care Okay for liquid diet Continue to monitor hemoglobin and hematocrit and transfuse as needed Continue Protonix 40 mg twice daily Nephrology service is following the patient for severe hyponatremia with sodium of 120 today, defer management of diuretics and hyponatremia to their service Alcohol abstinence Continue to monitor for signs or symptoms of alcohol withdrawal and treat Extensive discussion with the patient and given severe hyponatremia he would be high risk for anesthesia and endoscopic evaluation at this time, patient is agreeable to EGD when these are corrected and pending clinical course with all of the risks, benefits and possible complications of the procedure discussed with him at length Thank you for allowing us to participate in the care of the patient we will continue to follow
--- NOTE | 2020-02-26 19:42 | P.PN ---
Subjective Progress Note Date: 02/26/20 (Delayed charting seen at 1150) Principal diagnosis: vomiting blood Patient is a 39-year-old male with a history of fatty infiltration of the liver, hypertension, and alcohol abuse who presented to the emergency department secondary to abdominal pain, vomiting of bright red blood, and bright red blood per rectum. In the ER he underwent an extensive evaluation. Initially was t achycardic with a pulse of 106. Laboratory analysis showed a white blood cell count of 12.2, sodium 120, carbon dioxide 2121 5, creatinine 0.49, calcium 7.4, bilirubin 8.2, AST 182, ALT 30, alkaline phosphatase 145, lipase 571. His serum alcohol level was normal at 144. His INR came back elevated at 2. In the ER he was given a dose of IV Protonix and was started on IV fluids. Arrangements were made for admission. His sodium level dropped after 1 L fluid bolus. It was felt that he likely had hypovolemic hyponatremia. This is likely secondary to cirrhosis with fluid overload. He was started on Lasix. He underwent ultrasound of the liver which showed mild ascites, hepatomegaly with nodular contour suggesting cirrhosis, an enlarged gallbladder with sludge. GI and nephrology were consulted. Case discussed with nephrology who agrees with continued diuresis with Lasix. He was also started on CIWA protocol secondary to impending alcohol withdrawal. Patient seen and examined at bedside. His abdominal pain is less than yesterday. Denies any nausea or vomiting. Had a fall today and struck his back. He denies any pain to palpation of the area. General: Ill-appearing, no distress, appears at stated age Derm: + Jaundice, large hematoma over left costovertebral angle without pain to palpation warm, dry Head: atraumatic, normocephalic, symmetric Eyes: EOMI, no lid lag, + sclera Mouth: no lip lesion, mucus membranes moist Cardiovascular: S1S2 reg, no murmur, positive posterior tibial pulse bilateral, Lungs: CTA bilateral, no rhonchi, no rales , no accessory muscle use Abdominal: soft, distended, nontender to palpation, no guarding, no appreciable organomegaly Ext: no gross muscle atrophy, 2+ edema, no contractures Neuro: CN II-XI grossly intact, no focal neuro deficits, tremors Psych: Alert, oriented, appropriate affect Acute on chronic liver disease - suspect decompenstaed cirrhosis due to ETOH - Hep profile, ferritin, SOLEDAD, AMA- normal - livers US which showed mild ascities, gallbladder hydrops without CBD dilatation - Lasix IVP - GI note reviewed - Abstain from ETOH Upper GI bleed with acute blood loss anemia - Protonix IVP BID - liquid diet per GI - GI recs - serial CBC - if drop in HgB or bleeding begins again start octreotide Thrombocytopenia - likely due to liver disease - follow CBC ETOH withdrawal, imprnding DTs - CIWA with ativan - Thiamine - Folic acid - social work consult - abstain from alcohol Hyponatremia - due to hypervolemia - Lasix - Nephro recs: tolvaptan X 1 - Serial sodium levels nueorpathy - Check B 12 - Suspect alcohol induced - IV thiamine daily Obesity with BMI 32 - abstain from ETOH HTN - resume norvasc and benzapril Elevated THS with diminished free T 4 - no over sigsn of hypothyroidism - recommend recheck in 6 weeks Social stressors - no insurance, out of work as he works in [employer] DVT prophylaxis: SCDs Discussed with: Patient, nursing Anticipated discharge date: 4-[address]: home vs substance abuse rehab A total of 35 minutes was spent on the care of this complex patient more than 50% of the time was spent in counseling and care coordination. Objective - Vital Signs Vital signs: Vital Signs Temp 98.0 F 02/26/20 14:00 Pulse 110 H 02/26/20 14:00 Resp 16 02/26/20 14:00 BP 136/76 02/26/20 14:00 Pulse Ox 94 L 02/26/20 14:00 Intake & Output 02/26/20 02/26/20 02/27/20 06:59 18:59 06:59 Output Total 1200 1125 Balance -1200 -1125 Output: Urine 1200 1125 Other: Voiding Method Indwelling Catheter Indwelling Catheter # Voids 2 # Bowel Movements 2 - Labs CBC & Chem 7: 02/26/20 02:31 02/26/20 13:45 Labs: Abnormal Lab Results - Last 24 Hours (Table) 02/25/20 02/26/20 02/26/20 Range/Units 20:01 02:31 02:31 RBC 3.68 L (4.30-5.90) m/uL Hgb 12.2 L (13.0-17.5) gm/dL Hct 37.0 L (39.0-53.0) % MCV 100.4 H (80.0-100.0) fL Plt Count 105 L (150-450) k/uL PT (9.9-11.9) sec INR (0.90-1.11) Sodium 118 L* 120 L (137-145) mmol/L Potassium 3.3 L (3.5-5.1) mmol/L Chloride 87 L (98-107) mmol/L BUN 7 L (9-20) mg/dL Creatinine 0.48 L (0.66-1.25) mg/dL Calcium 6.8 L (8.4-10.2) mg/dL Ferritin (22.0-322.0) ng/mL TSH (0.465-4.680) mIU/L Free T4 (0.78-2.19) ng/dL 02/26/20 02/26/20 02/26/20 Range/Units 02:31 02:31 02:31 RBC (4.30-5.90) m/uL Hgb (13.0-17.5) gm/dL Hct (39.0-53.0) % MCV (80.0-100.0) fL Plt Count (150-450) k/uL PT 19.3 H (9.9-11.9) sec INR 1.87 H (0.90-1.11) Sodium (137-145) mmol/L Potassium (3.5-5.1) mmol/L Chloride (98-107) mmol/L BUN (9-20) mg/dL Creatinine (0.66-1.25) mg/dL Calcium (8.4-10.2) mg/dL Ferritin 1402.1 H (22.0-322.0) ng/mL TSH 8.640 H (0.465-4.680) mIU/L Free T4 2.52 H (0.78-2.19) ng/dL 02/26/20 02/26/20 Range/Units 08:22 13:45 RBC (4.30-5.90) m/uL Hgb (13.0-17.5) gm/dL Hct (39.0-53.0) % MCV (80.0-100.0) fL Plt Count (150-450) k/uL PT (9.9-11.9) sec INR (0.90-1.11) Sodium 120 L 120 L (137-145) mmol/L Potassium (3.5-5.1) mmol/L Chloride (98-107) mmol/L BUN (9-20) mg/dL Creatinine (0.66-1.25) mg/dL Calcium (8.4-10.2) mg/dL Ferritin (22.0-322.0) ng/mL TSH (0.465-4.680) mIU/L Free T4 (0.78-2.19) ng/dL
[2020-02-26] MEDS: MORPHINE SULFATE 4 MG/ML SYRINGE IVP PRN (22:13)
[2020-02-27] MEDS: LORazepam 2 MG/ML INJ IV PRN ×3 (01:21→03:31)
[2020-02-27 06:48] LABS: HCT 34.6 % (39.0-53.0); HGB 11.7 gm/dL (13.0-17.5); MCH 34.2 pg (25.0-35.0); MCHC 33.8 g/dL (31.0-37.0); MCV 101.4 fL (80.0-100.0); Macrocytosis Slight; Mean Platelet Volume 9.1; Platelet Count 106 k/uL (150-450); RBC 3.41 m/uL (4.30-5.90); RDW 14.5 % (11.5-15.5); WBC 8.6 k/uL (3.8-10.6)
[2020-02-27] MEDS: amLODIPine 10 MG TAB PO SCH (07:34)
[2020-02-27] MEDS: lisinopriL 20 MG TAB PO SCH (07:35)
[2020-02-27] MEDS: PANTOPRAZOLE 40 MG/10 ML VIAL IV SCH ×2 (07:52→21:26)
[2020-02-27] MEDS: THIAMINE 100 MG/ML 2 ML VIAL IVP SCH (07:52)
[2020-02-27] MEDS: FOLIC ACID 1 MG TAB PO SCH (07:52)
[2020-02-27 10:48] LABS: INR 1.97 (0.90-1.11); Prothrombin Time 20.2 sec (9.9-11.9)
[2020-02-27 11:29] LABS: African American GFR (CKD) 147.8 (60.0-200.0); Albumin 2.2 g/dL (3.80-4.90); Albumin/Globulin Ratio 0.54 (1.60-3.17); Anion Gap 5.5 mmol/L (4.00-12.00); BUN/Creat Ratio 11.67 Ratio (12.00-20.00); Calcium 7.1 mg/dL (8.7-10.3); Carbon Dioxide 30.5 mmol/L (21.6-31.8); Globulin 4.1 g/dL (1.6-3.3); Magnesium 1.5 mg/dL (1.5-2.4); Non-African American GFR(CKD) 127.5 (60.0-200.0); Potassium 3.2 mmol/L (3.5-5.5); Total Bilirubin 11.5 mg/dL (0.2-1.2); Total Protein 6.3 g/dL (6.2-8.2)
[2020-02-27] MEDS: FUROSEMIDE 10 MG/ML 4 ML VIAL IV SCH (12:43)
[2020-02-27] MEDS: POTASSIUM CHLORIDE ER 20 MEQ TAB.ER PO SCH ×2 (12:43→14:43)
[2020-02-27 15:15] LABS: Chloride 96 mmol/L (98-107)
[2020-02-27 15:16] LABS: ALT 27 U/L (4-49); AST 159 U/L (17-59); African American GFR (CKD) >90 (>60 ml/min/1.73 sqM); Albumin 2.7 g/dL (3.5-5.0); Albumin/Globulin Ratio 0.5; Alkaline Phosphatase 110 U/L (38-126); Anion Gap 3 mmol/L; Blood Urea Nitrogen 7 mg/dL (9-20); Calcium 7.5 mg/dL (8.4-10.2); Carbon Dioxide 34 mmol/L (22-30); Glucose 95 mg/dL (74-99); Non-African American GFR(CKD) >90 (>60 ml/min/1.73 sqM); Potassium 3.4 mmol/L (3.5-5.1); Sodium 133 mmol/L (137-145); Total Bilirubin 13.8 mg/dL (0.2-1.3); Total Protein 7.7 g/dL (6.3-8.2)
--- NOTE | 2020-02-27 15:47 | PN ---
PROGRESS NOTE Patient is seen for followup for hyponatremia. This morning patient was sleeping. He had been confused. He is being followed for hyponatremia. Patient was hypervolemic and maintained on IV Lasix. He did get a dose of tolvaptan at 50 mg yesterday. Serum sodium improved to 123 last evening and it is up to 129 today. The patient continues to have good urine output. He is also being monitored for DTs and currently being treated for it as well. PHYSICAL EXAMINATION: On examination today, patient is sleeping. Blood pressure is 127/66, heart rate 96 per minute. He is afebrile. EXAMINATION OF THE HEART: S1, S2. EXAMINATION OF THE LUNGS: Bilateral breath sounds are heard. Abdomen is soft, nontender. Examination of lower extremities shows much improvement in edema. The patient has been confused but moving all 4 extremities. LABS: Labs show sodium 129, potassium 3.2, chloride 93, BUN of 7 and serum creatinine 0.6. ASSESSMENT: 1. Hyponatremia which was hypervolemic in the setting of underlying chronic liver disease, improved with IV Lasix. Patient also got a small dose of tolvaptan yesterday so sodium is up to 129. His volume status is improved. I will hold off on the Lasix and check another serum sodium this afternoon. 2. Hypokalemia associated with diuresis, we will replace. 3. Encephalopathy, likely related to delirium tremens. Check ammonia level if not checked. 4. Liver cirrhosis, portal hypertension with ascites and jaundice with history of heavy alcohol abuse. 5. Gastrointestinal bleed, maintained on proton pump inhibitors. No active bleeding noted currently. PLAN: Hold Lasix, repeat sodium this evening. Replace potassium and symptomatic treatment. Check ammonia, if not checked recently. MMODL / IJN: [id number] /
[2020-02-27] MEDS ORDERED: PHYTONADIONE ORAL 5 MG/5 ML ORAL.SYRG PO STA (16:01)
--- NOTE | 2020-02-27 16:05 | P.PN ---
Subjective Progress Note Date: 02/27/20 Principal diagnosis: Alcoholic hepatitis, elevated liver enzymes, hematemesis Patient is seen sitting bedside today. No further episodes of hematemesis or GI bleeding reported. Patient has a sitter bedside as it was concern over increased confusion today. Objective - Vital Signs Vital signs: Vital Signs Temp 97.5 F L 02/27/20 07:23 Pulse 101 H 02/27/20 07:23 Resp 19 02/27/20 07:23 BP 96/60 02/27/20 07:23 Pulse Ox 95 02/27/20 07:23 Intake & Output 02/26/20 02/27/20 02/27/20 18:59 06:59 18:59 Intake Total 220 Output Total 1125 4700 1300 Balance -1125 -4480 -1300 Intake: Oral 220 Output: Urine 1125 4700 1300 Uretheral (High) 1300 Other: Voiding Method Indwelling Catheter Indwelling Catheter Indwelling Catheter # Bowel Movements 2 - Exam On physical examination, patient appears comfortable in no apparent distress. HEAD: Normocephalic, atraumatic. EYES: Scleral icterus. No conjunctival injection. MOUTH: No lesions, tongue midline. NECK: Trachea midline, no gross abnormalities. ABDOMEN: Soft, obese. Bowel sounds are positive. No organomegaly. No guarding or rigidity. EXTREMITIES: No pedal edema. SKIN: No rashes, jaundice. NEUROLOGIC: Alert and oriented to person and place with no asterixis noted. - Labs CBC & Chem 7: 02/27/20 06:25 02/27/20 14:40 Labs: Abnormal Lab Results - Last 24 Hours (Table) 02/26/20 02/26/20 02/27/20 Range/Units 13:45 19:27 06:25 RBC 3.41 L (4.30-5.90) m/uL Hgb 11.7 L (13.0-17.5) gm/dL Hct 34.6 L (39.0-53.0) % MCV 101.4 H (80.0-100.0) fL Plt Count 106 L (150-450) k/uL PT (9.9-11.9) sec INR (0.90-1.11) Sodium 120 L 123 L (137-145) mmol/L Potassium (3.5-5.5) mmol/L Chloride (96-109) mmol/L BUN (9.0-27.0) mg/dL BUN/Creatinine Ratio (12.00-20.00) Ratio Calcium (8.7-10.3) mg/dL Total Bilirubin (0.2-1.2) mg/dL AST (14-35) U/L Albumin (3.80-4.90) g/dL Globulin (1.6-3.3) g/dL Albumin/Globulin Ratio (1.60-3.17) g/dL Vitamin B12 (200.0-944.0) pg/mL 02/27/20 02/27/20 Range/Units 06:25 06:25 RBC (4.30-5.90) m/uL Hgb (13.0-17.5) gm/dL Hct (39.0-53.0) % MCV (80.0-100.0) fL Plt Count (150-450) k/uL PT 20.2 H (9.9-11.9) sec INR 1.97 H (0.90-1.11) Sodium 129 L (137-145) mmol/L Potassium 3.2 L (3.5-5.5) mmol/L Chloride 93 L (96-109) mmol/L BUN 7.0 L (9.0-27.0) mg/dL BUN/Creatinine Ratio 11.67 L (12.00-20.00) Ratio Calcium 7.1 L (8.7-10.3) mg/dL Total Bilirubin 11.5 H (0.2-1.2) mg/dL AST 125 H (14-35) U/L Albumin 2.20 L (3.80-4.90) g/dL Globulin 4.1 H (1.6-3.3) g/dL Albumin/Globulin Ratio 0.54 L (1.60-3.17) g/dL Vitamin B12 1789.0 H (200.0-944.0) pg/mL Assessment and Plan (1) Acute alcoholic hepatitis Narrative/Plan: 39-year-old male with a known history of alcohol abuse presenting for hematemesis and abdominal pain. Patient has a significant history of alcohol abuse in the past and continues to consume alcohol although he reports he has tried to cut down. He had multiple episodes of bright red blood in his vomitus prior to presentation however hemoglobin has remained stable at 11.7 with no significant elevation in BUN. Liver enzymes are markedly elevated and consistent with acute alcoholic hepatitis with total bilirubin 7.6, alkaline phosphatase 118, AST 169 and ALT 27. Acute viral hepatitis panel testing and SOLEDAD were negative. Ultrasound of the abdomen showed hepatomegaly with possible cirrhotic changes and mild ascites. No further episodes of hematemesis or bright red blood per rectum today. Current Visit: Yes Status: Acute Code(s): K70.10 - ALCOHOLIC HEPATITIS WITHOUT ASCITES SNOMED Code(s): 6559376 (2) Hematemesis Current Visit: Yes Status: Acute Code(s): K92.0 - HEMATEMESIS SNOMED Code(s): 4688549 (3) Elevated liver enzymes Current Visit: Yes Status: Acute Code(s): R74.8 - ABNORMAL LEVELS OF OTHER SERUM ENZYMES SNOMED Code(s): 128371591 Plan: Supportive care Okay to advance diet, fluid restricted as tolerated Continue to monitor hemoglobin and hematocrit and transfuse as needed Continue Protonix 40 mg twice daily Nephrology service is following the patient for severe hyponatremia with improved level at 129 today, defer management of diuretics and hyponatremia to their service Alcohol abstinence Continue to monitor for signs or symptoms of alcohol withdrawal and treat Extensive discussion with the patient and given severe hyponatremia he would be high risk for anesthesia and endoscopic evaluation at this time, patient is agreeable to EGD when these are corrected and pending clinical course with all of the risks, benefits and possible complications of the procedure discussed with him at length Mentation somewhat altered today and unclear if this is secondary to benzodiazepine use in the setting of liver disease, with ammonia level performed and normal Thank you for allowing us to participate in the care of the patient we will continue to follow
[2020-02-27] MEDS ORDERED: POTASSIUM BICARBONATE/CIT AC 20 MEQ TABLET.EFF PO ONE (17:30)
[2020-02-27] MEDS ORDERED: POTASSIUM CHLORIDE ER 20 MEQ TAB.ER PO SCH (18:00)
--- NOTE | 2020-02-27 18:32 | P.PN ---
Subjective Progress Note Date: 02/27/20 Principal diagnosis: vomiting blood Patient is a 39-year-old male with a history of fatty infiltration of the liver, hypertension, and alcohol abuse who presented to the emergency department secondary to abdominal pain, vomiting of bright red blood, and bright red blood per rectum. In the ER he underwent an extensive evaluation. Initially was tachycardic with a pulse of 106. Laboratory analysis showed a white blood cell count of 12.2, sodium 120, carbon dioxide 2121 5, creatinine 0.49, calcium 7.4, bilirubin 8.2, AST 182, ALT 30, alkaline phosphatase 145, lipase 571. His serum alcohol level was normal at 144. His INR came back elevated at 2. In the ER he was given a dose of IV Protonix and was started on IV fluids. Arrangements were made for admission. His sodium level dropped after 1 L fluid bolus. It was felt that he likely had hypovolemic hyponatremia. This is likely secondary to cirrhosis with fluid overload. He was started on Lasix. He underwent ult rasound of the liver which showed mild ascites, hepatomegaly with nodular contour suggesting cirrhosis, an enlarged gallbladder with sludge. GI and nephrology were consulted. Case discussed with nephrology who agrees with continued diuresis with Lasix. He was also started on CIWA protocol secondary to impending alcohol withdrawal. His sodium started improving. He required ativan on 02/25 and did have some obesity Larry anybody within 30 days or worse. Pain is that he went he will be started a week and can't relate it pupils are schedule 3 month early hold him off that she IS 30 days before he within 30 days without getting quite healthy without: She I don't know what happened to the physician but I know otherwise you've a follow-up with your damn full-time providers before a full local is within 30 days as we're anticipated something airway surgery was a complex it might be that he wouldn't off antibiotics ever seen it in the room ambulate with a likely better UL around somewhere before A local benefits of the admission Мария. Clear that we are never going to follow up should the patient told Out probable shifter something really the reason is quite high is because he had a low-grade that essentially was coming in inebriated and we did not have to go through the course of action to try to prove a 71 inebriated we just didn't want to let him back any more starting with infection as worse first started. He was working and closing very still on antibiotic after about admission and smarter bilevel he came in to work one day and I would like but I will leave the patient and he is "something is not right with 15 blade and Wednesday following. He wishes he was lately he didn't sit To be didn't do anything and I called Analisa as she had just started Analisa also comfortable like leaving him here at night thinking about right she's been confined to go home. She is tired or whatever else or whenever 2 days later the hospital called but we'll want him back and radiated people avoided simply sleeping and acting inappropriately in the doctor's lounge we'll want that and I note cause her program shift, polyuria: Off of Advair she has yet for the next 30 days history in the confusion requiring patient sitter on 02/26. His bilirubin continued to increase. Patient seen and examined at bedside. Denies headache, pain, fidgeting, nausea, vomiting. He is slow to answer questions. Think he has not in the hospital anymore. He remembers being in the hospital earlier today. General: Ill-appearing, no distress, appears at stated age Derm: + Jaundice, large hematoma over left costovertebral angle without pain to palpation warm, dry Head: atraumatic, normocephalic, symmetric Eyes: EOMI, no lid lag, + sclera Mouth: no lip lesion, mucus membranes moist Cardiovascular: S1S2 reg, no murmur, positive posterior tibial pulse bilateral, Lungs: CTA bilateral, no rhonchi, no rales , no accessory muscle use Abdominal: soft, less distended, nontender to palpation, no guarding, no appreciable organomegaly Ext: no gross muscle modified schedule charting was discussed but for some reason I did come in at 7 in the other person that you. Despite that he will need to be there anymore to rotate out and find a bandlike a meeting the entire week. Local denies not and I will leave early but hasn't been much to ask to light commonly used only in having. He like our committee very sensitivethec, 2+ edema, no contractures Neuro: CN II-XI grossly intact, no focal neuro deficits, tremors Psych: Alert, oriented to self and year, appropriate affect Acute on chronic liver disease - Suspect decompensation cirrhosis due to ETOH - Hep profile, ferritin, SOLEDAD, AMA- normal - livers US which showed mild ascities, gallbladder hydrops without CBD dilatation - Lasix IVP - GI note reviewed - Abstain from ETOH Upper GI bleed with acute blood loss anemia - Protonix IVP BID -Regular diet per GI - GI recs - serial CBC Hyponatremia, improving - due to hypervolemia - Lasix - Nephro recs: tolvaptan X 1 02/25, hold lasix due to rapid increase Hypokalemia -Replace and recheck in a.m. -Check magnesium level in a.m. Thrombocytopenia - likely due to liver disease - follow CBC ETOH withdrawal, imprnding DTs - CIWA with ativan - Thiamine - Folic acid - social work - abstain from alcohol nueorpathy - B 12 normal - Suspect alcohol induced - IV thiamine daily Obesity with BMI 32 - abstain from ETOH HTN - resume norvasc and benzapril Elevated THS with diminished free T 4 - no over sigsn of hypothyroidism - recommend recheck in 6 weeks Social stressors - no insurance, out of work as he works in [employer] DVT prophylaxis: SCDs Discussed with: Patient, nursing Anticipated discharge date: 4-[address]: home vs substance abuse rehab A total of 35 minutes was spent on the care of this complex patient more than 50% of the time was spent in counseling and care coordination. Objective - Vital Signs Vital signs: Vital Signs Temp 97.5 F L 02/27/20 07:23 Pulse 101 H 02/27/20 07:23 Resp 19 02/27/20 07:23 BP 96/60 02/27/20 07:23 Pulse Ox 95 02/27/20 07:23 Intake & Output 02/26/20 02/27/20 02/27/20 18:59 06:59 18:59 Intake Total 220 Output Total 1125 4700 2500 Balance -1125 -4480 -2500 Intake: Oral 220 Output: Urine 1125 4700 2500 Uretheral (High) 1300 Other: Voiding Method Indwelling Catheter Indwelling Catheter Indwelling Catheter # Bowel Movements 2 - Labs CBC & Chem 7: 02/27/20 06:25 02/27/20 14:40 Labs: Abnormal Lab Results - Last 24 Hours (Table) 02/26/20 02/27/20 02/27/20 Range/Units 19:27 06:25 06:25 RBC 3.41 L (4.30-5.90) m/uL Hgb 11.7 L (13.0-17.5) gm/dL Hct 34.6 L (39.0-53.0) % MCV 101.4 H (80.0-100.0) fL Plt Count 106 L (150-450) k/uL PT 20.2 H (9.9-11.9) sec INR 1.97 H (0.90-1.11) Sodium 123 L (135-145) mmol/L Potassium (3.5-5.5) mmol/L Chloride (96-109) mmol/L Carbon Dioxide (22-30) mmol/L BUN (9.0-27.0) mg/dL Creatinine (0.66-1.25) mg/dL BUN/Creatinine Ratio (12.00-20.00) Ratio Calcium (8.7-10.3) mg/dL Total Bilirubin (0.2-1.2) mg/dL AST (14-35) U/L Albumin (3.80-4.90) g/dL Globulin (1.6-3.3) g/dL Albumin/Globulin Ratio (1.60-3.17) g/dL Vitamin B12 (200.0-944.0) pg/mL 02/27/20 02/27/20 Range/Units 06:25 14:40 RBC (4.30-5.90) m/uL Hgb (13.0-17.5) gm/dL Hct (39.0-53.0) % MCV (80.0-100.0) fL Plt Count (150-450) k/uL PT (9.9-11.9) sec INR (0.90-1.11) Sodium 129 L 133 L (135-145) mmol/L Potassium 3.2 L 3.4 L (3.5-5.5) mmol/L Chloride 93 L 96 L (96-109) mmol/L Carbon Dioxide 34 H (22-30) mmol/L BUN 7.0 L 7 L (9.0-27.0) mg/dL Creatinine 0.62 L (0.66-1.25) mg/dL BUN/Creatinine Ratio 11.67 L (12.00-20.00) Ratio Calcium 7.1 L 7.5 L (8.7-10.3) mg/dL Total Bilirubin 11.5 H 13.8 H (0.2-1.2) mg/dL AST 125 H 159 H (14-35) U/L Albumin 2.20 L 2.7 L (3.80-4.90) g/dL Globulin 4.1 H (1.6-3.3) g/dL Albumin/Globulin Ratio 0.54 L (1.60-3.17) g/dL Vitamin B12 1789.0 H (200.0-944.0) pg/mL
[2020-02-27] MEDS: MAGNESIUM SULFATE-D5W PMX 1 GM in DEXTROSE/WATER 1 100ML.BAG IVPB SCH ×2 (20:03→21:26)
--- NOTE | 2020-02-27 20:11 | CT ---
EXAMINATION TYPE: CT abdomen pelvis wo con DATE OF EXAM: 02/27/2020 COMPARISON: None INDICATION: jaundice DLP: 1106.4 mGycm, Automated exposure control for dose reduction was used. CONTRAST: 0 mL of Isovue 300. Study performed without Oral Contrast TECHNIQUE: Axial images were obtained from above the diaphragm to the pubic rami in the axial plane a t 5 mm thick sections. Reconstructed images are reviewed on the computer in the coronal plane. FINDINGS: Limited CT sections are obtained the lung bases. The lung bases are clear. CT ABDOMEN: Ascites is present. Liver: There is marked fatty infiltration to the liver. No biliary dilatation is identified. Spleen: Normal Pancreas: Mild inflammatory changes may be adjacent. Consider pancreatitis within the differential.. No duct dilatation is evident. No suspicious gallstones or common bile duct stones are evident. Adrenal glands: The adrenal glands are normal. Gallbladder: Markedly dilated. Kidneys: No masses are evident. No hydronephrosis is present. No cysts are present. No suspicious renal stones are evident. Aorta: Normal Inferior vena cava: Normal. CT PELVIS: Loops of bowel within the abdomen and pelvis are normal. The studies without oral contrast limiti ng bowel evaluation. Appendix: Normal as visualized. Urinary bladder: Decompressed with a catheter. Genitourinary structures: Prostate appears unremarkable Osseous structures: No suspicious lytic or sclerotic lesions. IMPRESSIONS: 1. Ascites. 2. Marked fatty infiltration liver. Biliary dilatation ovaries not identified. 3. Markedly enlarged gallbladder. Common bile duct dilatation is not clearly identified. Correlate fo r acute cholecystitis. 4. Mild pancreatitis is not excluded
[2020-02-28 06:59] LABS: HCT 34.9 % (39.0-53.0); HGB 11.5 gm/dL (13.0-17.5); MCH 34.2 pg (25.0-35.0); MCV 103.4 fL (80.0-100.0); Macrocytosis Slight; Mean Platelet Volume 8.8; Platelet Count 116 k/uL (150-450); RBC 3.37 m/uL (4.30-5.90); RDW 14.5 % (11.5-15.5)
[2020-02-28] MEDS ORDERED: DEXTROSE 5% IN WATER 1,000 ML IV SCH (09:00)
[2020-02-28] MEDS: THIAMINE 100 MG/ML 2 ML VIAL IVP SCH (09:43)
[2020-02-28] MEDS: PANTOPRAZOLE 40 MG/10 ML VIAL IV SCH ×2 (09:43→20:11)
[2020-02-28] MEDS: lisinopriL 20 MG TAB PO SCH (09:44)
[2020-02-28] MEDS: FOLIC ACID 1 MG TAB PO SCH (09:44)
[2020-02-28] MEDS: prednisoLONE ORAL SOLUTION 15MG/5ML CUP PO SCH (09:44)
--- NOTE | 2020-02-28 10:00 | US ---
EXAMINATION TYPE: US liver doppler DATE OF EXAM: 02/28/2020 COMPARISON: 02/27/2020 CT and ultrasound 02/25/2020 CLINICAL HISTORY: 39-year-old male portal venous thrombus. Jaundice; gallbladder disease; dull RUQ ac he x 1 month TECHNIQUE: Multiple sonographic images of the right upper quadrant are obtained. FINDINGS: EXAM MEASUREMENTS: Liver Length: 18.3 cm Gallbladder Wall: 0.36 cm CBD: 0.4 cm Right Kidney: 13.5 x 7.5 x 5.7 cm RUQ ABDOMINAL ULTRASOUND Pancreas: Suboptimally visualized due to shadowing from bowel gas. Liver: enlarged, surrounded by small amount of ascites, heterogeneous and echogenic, attenuating, li mited visualization of vessels Gallbladder: Hydropic measuring greater than 10.0cm long; internal sludge is noted, abnormally thick ened wall, nonmobile nodular focus suggestive of a polyp measuring 0.5 x 0.5 x 0.7cm. Evidence for sonographic Lugo's sign: patient denied pain here with probe pressure CBD: wnl Right Kidney: no hydronephrosis or masses seen Ascites noted? Small amount imaged in RUQ and in RLQ. LIVER DOPPLER ULTRASOUND Vessels are limitedly seen due to liver heterogeneity and gallbladder findings. Main Portal Vein diameter: 1.1 cm (normal <1.3 cm) Flow direction: Limited assessment Color flow patency seen within the main portal vein: to and fro pulsatile flow Main portal vein shows a monophasic waveform: no Color flow patency seen within the right portal vein: right portal vein not seen due to liver emy estion Color flow patency seen within the left portal vein: left portal vein not seen Hepatic Artery: not seen IVC/Hepatic Veins: only right hepatic vein was seen Color flow patency seen within the IVC: yes, on image #[id number] in transverse IVC shows a triphasic waveform: to and fro flow Color flow patency seen within the right hepatic vein: yes IMPRESSION: 1. Very difficult assessment of the hepatic vasculature due to hepatomegaly and sound beam attenuatio n. There is no abnormal dilatation of the main portal vein (dilatation is generally seen with portal venous hypertension). Some internal flow is visualized but demonstrates a pulsatile waveform. Correla te to exclude CHF and elevated venous pressures being transmitted through the liver. For more adequat e assessment of portal venous thrombus, a contrast-enhanced CT or MRI may be needed. 2. Very heterogeneous liver. Correlate for underlying cirrhosis or other nonspecific hepatocellular d isease. 3. Hydropic gallbladder with thickened wall and sludge. Possible chronic cholecystitis. The patient d enies pain in this area. If the patient received pain medication, HIDA scan can further assess for ac [place] cholecystitis. 4. No biliary ductal dilatation. 5. If no surgical intervention for the gallbladder, 6 month follow-up is recommended to reassess a po ssible 7 mm gallbladder wall polyp. 6. Mild right upper quadrant ascites.
[2020-02-28 10:09] LABS: African American GFR (CKD) 147.8 (60.0-200.0); Albumin 2.2 g/dL (3.80-4.90); Albumin/Globulin Ratio 0.54 (1.60-3.17); Anion Gap 12.5 mmol/L (4.00-12.00); BUN/Creat Ratio 11.67 Ratio (12.00-20.00); Calcium 7.6 mg/dL (8.7-10.3); Carbon Dioxide 24.5 mmol/L (21.6-31.8); Globulin 4.1 g/dL (1.6-3.3); Magnesium 1.6 mg/dL (1.5-2.4); Non-African American GFR(CKD) 127.5 (60.0-200.0); Potassium 3.5 mmol/L (3.5-5.5); Total Bilirubin 11.6 mg/dL (0.2-1.2); Total Protein 6.3 g/dL (6.2-8.2)
[2020-02-28] MEDS: HYDROcodone/APAP 5-325MG 1 EACH TAB PO PRN (10:18)
[2020-02-28 12:03] LABS: INR 1.95 (0.90-1.11)
[2020-02-28] MEDS: MAGNESIUM SULFATE-D5W PMX 1 GM in DEXTROSE/WATER 1 100ML.BAG IVPB SCH ×3 (12:10→16:01)
--- NOTE | 2020-02-28 13:57 | PN ---
PROGRESS NOTE Patient is seen for followup for hyponatremia. He was admitted with severe jaundice, weakness, and serum sodium of around 116 to 118 on admission. The patient was hypervolemic. He was maintained on IV Lasix. He did get a dose of tolvaptan at 15 mg following which his serum sodium has increased and currently staying at about 132 mEq/L. Patient's mentation has improved today. His ammonia level was not elevated. He is scheduled for possible paracentesis today. PHYSICAL EXAMINATION: Blood pressure is 124/71, heart rate 87 per minute. He is afebrile. EXAMINATION OF THE HEART: S1, S2. EXAMINATION OF LUNGS: Decreased breath sounds at bases. Abdomen is soft, nontender. Examination of lower extremities shows no significant edema. The patient is jaundiced. CALL PERSON exam is grossly intact. LABS: Labs show serum sodium 134 early this morning and repeat one at 132, creatinine 0.6, potassium 3.5, BUN of 7. ASSESSMENT: 1. Hyponatremia, hypervolemic initially, currently off of IV Lasix, improved. Patient did receive one dose of tolvaptan. Serum sodium staying at 134 this morning. I had started D5W. I did obtain a stat level as well and his serum sodium is staying at about 132. Therefore, I will discontinue the D5W and we will recheck another sodium level in the morning. 2. Acute alcoholic hepatitis. 3. Encephalopathy, now improved. 4. Hypokalemia associated with diuresis, currently off of Lasix. Will replace potassium. 5. Gastrointestinal bleed, maintained on proton pump inhibitors. No active bleeding. 6. Liver cirrhosis, portal hypertension with ascites and jaundice with history of heavy EtOH abuse. PLAN: Discontinue the D5W today. Repeat sodium tomorrow. Continue off of IV Lasix. Encourage increased oral protein intake. MMODL / IJN: [id number] /
--- NOTE | 2020-02-28 16:19 | P.PN ---
<Willie Bragg - Last Filed: 02/28/20 15:46> Subjective Progress Note Date: 02/28/20 Principal diagnosis: Patient is a 39-year-old male with a history of fatty infiltration of the liver, hypertension, and chronic alcohol abuse reportedly drinking a reported 12 beers daily for the past 3 years. He presented to [facility] emergency department on 02/25/20 with a chief complaint of abdominal pain, vomiting of bright red blood, and bright red blood per his rectum. Initially upo n arrival in ED, pt was tachycardic with a pulse of 106. Laboratory analysis showed a white blood cell count of 12.2, sodium 120, carbon dioxide 2121 5, creatinine 0.49, calcium 7.4, bilirubin 8.2, AST 182, ALT 30, alkaline phosphatase 145, lipase 571. His serum alcohol level was normal at 144. His INR came back elevated at 2. Secondary to pts chief complaints and lab findings, pt was started on IV Protonix x one dose followed by gentle hydration of IV fluids in the ER and after extensive evaluation by ER physician, pt was admitted to general medical unit with telemetry for acutely elevated liver enzymes on chronic liver disease, upper GI bleed with acute blood loss anemia, hyponatremia, hypokalemia, thrombocytopenia, and EtOH intoxication with impending withdrawal. 02/26/20 His sodium level dropped after 1 L fluid bolus. It was felt that he likely had hypovolemic hyponatremia. This is likely secondary to cirrhosis with fluid overload. He was started on Lasix. He underwent ultrasound of the liver which showed mild ascites, hepatomegaly with nodular contour suggesting cirrho sis, and an enlarged gallbladder with sludge. GI and nephrology were consulted. Case discussed with nephrology who agrees with continued diuresis with Lasix. He was admitted also started on CIWA protocol secondary to impending alcohol withdrawal. His sodium started improving. He required ativan x1 dose on 02/26/20. 02/27/20 Pt has not had any further episodes of hematemesis or hematochezia. He was evaluated by GI and continue Protonix twice a day. Plan for possible endoscopy once patient is stabilized and able to consent, patient continues to be encephalopathic today. He remains on CIWA withdrawal and received three additional doses of ativan on 02/27/20 accompanied by a sitter due to increased confusion. Hyponatremia rapidly improved status post administration of lasix and Tolvaptan, sodium 118 on 02/24 and now 133. Lasix was stopped at this time pending repeat sodium level and patient was started on D5W. 02/28/20: Patient's condition stable at this time and he has not had any further episodes of hematemesis or hematochezia since arrival on 02/25/20. Hemoglobin stable at 11.5. Thrombocytopenia remains with a platelet count of 116 and PT/INR remain elevated with PT of 20.0 and INR 1.95. Plan for possibly endoscopy pending further evaluation by GI. Patient' s mentation significantly improved from previous documented levels of mentation. Patient currently is awake and alert to person, place, time, and situation. Previous confusion/encephalopathic state reported yesterday was likely resulting from metabolic encephalopathy related to elevation in liver enzymes with cirrhosis vs repeated doses of Ativan given previously in the night vs EtOH withdrawal vs electrolyte imbalance and/or other metabolic changes/abnormalities. Now that mentation and condition has improved, plan for GI to discuss endoscopy with patient. CT of abdomen and pelv is without contrast revealed ascites with a marked fatty infiltrated liver, biliary dilation ovaries not identified, but there was a reported markedly enlarged gallbladder with mild pancreatitis, common bile duct dilation was not clearly identified. There was an order placed yesterday for paracentesis, limited Doppler RUQ ultrasound completed this morning revealed very difficult assessment of the hepatic vasculature due to hepatomegaly and sound being potential relation, there was no abdominal dilation of the main portal vein which is generally seen with venous portal hypertension some internal flow was visualized but demonstrated a pulsatile waveform, Very heterogenous liver with a hydropic gallbladder with thickened wall in slides suggestive of possible chronic cholecystitis, biliary ductal dilation, and mild right upper quadrant ascites. Paracentesis on hold at this time. D5W was discontinued pending repeat sodium tomorrow morning to stable sodium levels 3 draws today revealing sodium 134 with repeat of 132 and again at 132. Lasix to remain discontinued, and patient to be encouraged to increase his intake of foods high in protein. Pt reports that he "feels great" this morning and states significant improvement in lower extremity edema. Upon bedside examination, he denied having any further complaints or concerns at this time including headache, lightheadedness, dizzine ss, changes in vision or hearing, chills or diaphoresis, visual/auditory/tactile hallucinations, tremors, chest pain or palpitations, shortness of breath or dyspnea with exertion, abdominal pain, nausea, vomiting, any further episodes of hematochezia noted melena, or having any numbness/tingling/weakness in extremities. Physical Examination General: Ill-appearing, no distress, appears at stated age Derm: + Jaundice, large hematoma over left costovertebral angle without pain to palpation, skin otherwise warm and dry with no diaphoresis Head: atraumatic, normocephalic, symmetric Eyes: EOMI, no lid lag, + scleral icterus Mouth: no lip lesion, mucus membranes moist Cardiovascular: S1S2 reg, no murmur, positive posterior tibial pulses bilaterally, Lungs: CTA bilateral, no rhonchi, no rales, no wheezing and no accessory muscle use. Respirations even, regular, and unlabored on room air. Abdominal: soft distended, nontender to palpation, no guarding, no appreciable organomegally Musculoskeletal and Extremities: ROM and sensation intact no gross muscle atrophy noted, 1+ non-pitting edema to BLE, no contractures Neuro: CN II-XII grossly intact, no focal neuro deficits, no tremors Psych: Awake, alert and oriented to person, place, time and situation. Appropria te affect and cooperative behaviors. Objective - Vital Signs Vital signs: Vital Signs Temp 98.5 F 02/28/20 07:44 Pulse 87 02/28/20 07:44 Resp 17 02/28/20 07:44 BP 124/71 02/28/20 07:44 Pulse Ox 95 02/28/20 07:44 Intake & Output 02/27/20 02/28/20 02/28/20 18:59 06:59 18:59 Intake Total 700 400 Output Total 5000 800 Balance -4300 -400 Intake: Oral 700 400 Output: Urine 5000 800 Uretheral (High) 3800 Other: Voiding Method Indwelling Catheter Indwelling Catheter Indwelling Catheter - Labs CBC & Chem 7: 02/28/20 06:38 02/28/20 12:40 Labs: Abnormal Lab Results - Last 24 Hours (Table) 02/27/20 02/27/20 02/27/20 Range/Units 06:25 06:25 14:40 RBC (4.30-5.90) m/uL Hgb (13.0-17.5) gm/dL Hct (39.0-53.0) % MCV (80.0-100.0) fL Plt Count (150-450) k/uL PT 20.2 H (9.9-11.9) sec INR 1.97 H (0.90-1.11) Sodium 129 L 133 L (135-145) mmol/L Potassium 3.2 L 3.4 L (3.5-5.5) mmol/L Chloride 93 L 96 L (96-109) mmol/L Carbon Dioxide 34 H (22-30) mmol/L Anion Gap (4.00-12.00) mmol/L BUN 7.0 L 7 L (9.0-27.0) mg/dL Creatinine 0.62 L (0.66-1.25) mg/dL BUN/Creatinine Ratio 11.67 L (12.00-20.00) Ratio Calcium 7.1 L 7.5 L (8.7-10.3) mg/dL Total Bilirubin 11.5 H 13.8 H (0.2-1.2) mg/dL AST 125 H 159 H (14-35) U/L Albumin 2.20 L 2.7 L (3.80-4.90) g/dL Globulin 4.1 H (1.6-3.3) g/dL Albumin/Globulin Ratio 0.54 L (1.60-3.17) g/dL Vitamin B12 1789.0 H (200.0-944.0) pg/mL 02/28/20 02/28/20 02/28/20 Range/Units 06:38 06:38 09:48 RBC 3.37 L (4.30-5.90) m/uL Hgb 11.5 L (13.0-17.5) gm/dL Hct 34.9 L (39.0-53.0) % MCV 103.4 H (80.0-100.0) fL Plt Count 116 L (150-450) k/uL PT (9.9-11.9) sec INR (0.90-1.11) Sodium 134 L 132 L (135-145) mmol/L Potassium (3.5-5.5) mmol/L Chloride (96-109) mmol/L Carbon Dioxide (22-30) mmol/L Anion Gap 12.50 H (4.00-12.00) mmol/L BUN 7.0 L (9.0-27.0) mg/dL Creatinine (0.66-1.25) mg/dL BUN/Creatinine Ratio 11.67 L (12.00-20.00) Ratio Calcium 7.6 L (8.7-10.3) mg/dL Total Bilirubin 11.6 H (0.2-1.2) mg/dL AST 138 H (14-35) U/L Albumin 2.20 L (3.80-4.90) g/dL Globulin 4.1 H (1.6-3.3) g/dL Albumin/Globulin Ratio 0.54 L (1.60-3.17) g/dL Vitamin B12 (200.0-944.0) pg/mL Assessment and Plan Plan: Acute on chronic liver disease - Suspect decompensation cirrhosis due to ETOH - Hep profile, ferritin, SOLEDAD, AMA- normal - livers US which showed mild ascities, gallbladder hydrops without CBD dilatation - - GI note reviewed - Pt counseled on abstaining from ETOH and risks of continued use including . Upper GI bleed with acute blood loss anemia -Protonix IVP BID -Regular diet per GI -Pt has not had any further episodes of hematemesis or hematochezia since arrival on 02/25/20. Hemoglobin stable at 11.5. Thrombocytopenia remains with a platelet count of 116 and PT/INR remain elevated with PT of 20.0 and INR 1.95. -Plan for possibly endoscopy pending further evaluation and recommendations by GI. -Serial CBCs Hyponatremia, improving -Likely resulting due to hypervolemia vs beer potomania -Pt received Lasix and tolvaptan x one dose. Both discontinued by nephro and pt was started on D5 on 02/26. -D5W was discontinued pending repeat sodium tomorrow morning secondary to stable sodium levels 3 draws today revealing sodium 134 with repeat of 132 and again at 132. Lasix to remain discontinued, and patient to be encouraged to increase his intake of foods high in protein and abstain from alcohol use. -Continue close monitoring with repeat morning labs. Hypokalemia -Stable this morning at 3.5 and we will recheck in a.m. Hypomagnesemia -Hypomagnesemia as evidenced by magnesium 1.6. Magnesium was replaced and we will repeat magnesium level in a.m. Thrombocytopenia -Thrombocytopenia likely secondary to liver disease. Platelets 116 this morning. -We will follow CBC with repeat a.m. labs ETOH withdrawal, imprnding DTs - CIWA with symptom triggered medication management with ativan - Thiamine - Folic acid - social work consult - Pt counseled on abstaining from ETOH and risks of continued use including . Neuropathy - B 12 normal - Suspect alcohol induced - IV thiamine daily Obesity with BMI 32 -Abstain from ETOH HTN - resume norvasc and benzapril Elevated THS with diminished free T 4 - no overt signs of hypothyroidism - recommend recheck in 6 weeks Social stressors -No insurance, out of work as he reportedly worked in [employer] DVT prophylaxis: SCDs Discussed with: Patient, nursing Anticipated discharge date: 2-[address]: home vs substance abuse rehab program A total of 35 minutes was spent on the care of this complex patient more than 50% of the time was spent in counseling and care coordination. <Maxine Pa - Last Filed: 02/28/20 17:19> Objective - Vital Signs Vital signs: Vital Signs Temp 98.1 F 02/28/20 14:00 Pulse 87 02/28/20 14:00 Resp 16 02/28/20 14:00 BP 117/72 02/28/20 14:00 Pulse Ox 94 L 02/28/20 14:00 Intake & Output 02/27/20 02/28/20 02/28/20 18:59 06:59 18:59 Intake Total 700 400 Output Total 5000 800 800 Balance -4300 -400 -800 Intake: Oral 700 400 Output: Urine 5000 800 800 Uretheral (High) 3800 Other: Voiding Method Indwelling Catheter Indwelling Catheter Indwelling Catheter - Labs CBC & Chem 7: 02/28/20 06:38 02/28/20 12:40 Labs: Abnormal Lab Results - Last 24 Hours (Table) 02/28/20 02/28/20 02/28/20 Range/Units 06:38 06:38 06:38 RBC 3.37 L (4.30-5.90) m/uL Hgb 11.5 L (13.0-17.5) gm/dL Hct 34.9 L (39.0-53.0) % MCV 103.4 H (80.0-100.0) fL Plt Count 116 L (150-450) k/uL PT 20.0 H (9.9-11.9) sec INR 1.95 H (0.90-1.11) Sodium 134 L (135-145) mmol/L Anion Gap 12.50 H (4.00-12.00) mmol/L BUN 7.0 L (9.0-27.0) mg/dL BUN/Creatinine Ratio 11.67 L (12.00-20.00) Ratio Calcium 7.6 L (8.7-10.3) mg/dL Total Bilirubin 11.6 H (0.2-1.2) mg/dL AST 138 H (14-35) U/L Albumin 2.20 L (3.80-4.90) g/dL Globulin 4.1 H (1.6-3.3) g/dL Albumin/Globulin Ratio 0.54 L (1.60-3.17) g/dL 02/28/20 02/28/20 Range/Units 09:48 12:40 RBC (4.30-5.90) m/uL Hgb (13.0-17.5) gm/dL Hct (39.0-53.0) % MCV (80.0-100.0) fL Plt Count (150-450) k/uL PT (9.9-11.9) sec INR (0.90-1.11) Sodium 132 L 132 L (135-145) mmol/L Anion Gap (4.00-12.00) mmol/L BUN (9.0-27.0) mg/dL BUN/Creatinine Ratio (12.00-20.00) Ratio Calcium (8.7-10.3) mg/dL Total Bilirubin (0.2-1.2) mg/dL AST (14-35) U/L Albumin (3.80-4.90) g/dL Globulin (1.6-3.3) g/dL Albumin/Globulin Ratio (1.60-3.17) g/dL Assessment and Plan Plan: Patient seen and examined at bedside. Case discussed with Willie Bragg NP I am in agreement with subjective, physical exam, assessment and plan as dictated above and amended below. Gen: ill appearing, non toxic, no distress Derm: + jaundice, + warm, + dry HEENT: + scleral icterus, EOMI, No lid lesion or lag CV: S1S2 reg, no edema b/l LE, + PT pulse bilateral Lungs: Decreased bs b/l, no accessory muscle use Abdomen: + TTP right upper quandrant, Distended, no fluid wave Psych: Alert, Awake, appropriate Alcoholic hepatitis with Acute on chronic liver disease - Prednisolone started and patient currently without signs of GI bleed and stable hemoglobin - Suspect decompensation cirrhosis due to ETOH - Hep profile, ferritin, SOLEDAD, AMA- normal - livers US which showed mild ascities, gallbladder hydrops without CBD dilatation - GI recs appreciated HTN, borderline low - Lisinopril decreased - norvasc off
[2020-02-29] MEDS: FOLIC ACID 1 MG TAB PO SCH (07:11)
[2020-02-29] MEDS: PANTOPRAZOLE 40 MG/10 ML VIAL IV SCH (07:12)
[2020-02-29] MEDS: prednisoLONE ORAL SOLUTION 15MG/5ML CUP PO SCH (07:12)
[2020-02-29] MEDS: THIAMINE 100 MG/ML 2 ML VIAL IVP SCH ×2 (07:12→19:10)
[2020-02-29] MEDS: lisinopriL 20 MG TAB PO SCH (07:12)
[2020-02-29 08:40] LABS: ALT 28 U/L (4-49); AST 126 U/L (17-59); African American GFR (CKD) >90 (>60 ml/min/1.73 sqM); Albumin 2.6 g/dL (3.5-5.0); Albumin/Globulin Ratio 0.5; Alkaline Phosphatase 103 U/L (38-126); Anion Gap 2 mmol/L; Blood Urea Nitrogen 8 mg/dL (9-20); Calcium 8.1 mg/dL (8.4-10.2); Carbon Dioxide 33 mmol/L (22-30); Chloride 98 mmol/L (98-107); Globulin 4.9 g/dL; Glucose 77 mg/dL (74-99); Non-African American GFR(CKD) >90 (>60 ml/min/1.73 sqM); Sodium 133 mmol/L (137-145); Total Bilirubin 10.9 mg/dL (0.2-1.3); Total Protein 7.5 g/dL (6.3-8.2)
[2020-02-29 08:48] LABS: Basophils # (A) 0.1 k/uL (0-0.2); Basophils % (A) 1 %; Eosinophils # (A) 0.1 k/uL (0-0.7); Eosinophils % (A) 1 %; HCT 37.1 % (39.0-53.0); HGB 11.9 gm/dL (13.0-17.5); Lymphocytes # (A) 2.1 k/uL (1.0-4.8); Lymphocytes % (A) 22 %; MCH 33.3 pg (25.0-35.0); Macrocytosis Moderate; Monocytes # (A) 0.9 k/uL (0-1.0); Monocytes % (A) 9 %; Neutrophils # (A) 6.2 k/uL (1.3-7.7); Neutrophils % (A) 65 %; Platelet Count 139 k/uL (150-450); RBC 3.57 m/uL (4.30-5.90); RDW 14.8 % (11.5-15.5); WBC 9.6 k/uL (3.8-10.6)
[2020-02-29 08:57] LABS: INR 2.1 (<1.2); Prothrombin Time 20.2 sec (9.0-12.0)
[2020-02-29] MEDS ORDERED: LIDOCAINE 1% INJ 10MG/ML (20 ML MDV) ONE (10:25)
[2020-02-29] MEDS ORDERED: PROPOFOL 10 MG/ML 20 ML VIAL IV ONE (10:25)
[2020-02-29] MEDS ORDERED: IV FLUID CONTINUATION 1,000 ML IV ONE ×2 (10:40)
--- NOTE | 2020-02-29 11:00 | P.PCN ---
Date of Procedure: 02/29/20 Description of Procedure: BRIEF HISTORY: 39-year-old male with a medical history significant for hypertension and alcohol abuse who presented to the hospital due to complaints of abdominal pain and vomiting of blood. The patient reports multiple episodes of painless vomiting of blood. The patient has a known history of alcohol abuse previously drinking up to 12 beers daily, he reports he has tried to cut back on his total consumption. He denies any signs or symptoms of decompensated alcohol liver disease in the past including encephalopathy, jaundice, GI bleeding or ascites. No prior endoscopy. Currently is reporting that abdominal pain is improved and no further episodes of hematemesis. He also had some painless bright red blood per rectum on presentation which she reports resolved. PROCEDURE PERFORMED: Esophagogastroduodenoscopy with biopsy . PREOPERATIVE DIAGNOSIS: Hematemesis, nausea and vomiting. ESTIMATED BLOOD LOSS: Minimal. IV sedation per anesthesia. PROCEDURE: After informed consent was obtained, the patient was brought into the endoscopy unit. IV sedation was administered by Anesthesia under continuous monitoring. Initially the Olympus GIF-190 video endoscope was inserted into the mouth. Esophagus intubated without any difficulty. It was gradually advanced into the stomach and duodenum and carefully examined. The bulb and the second part of the duodenum appeared normal, With biopsies taken. The scope at this time was withdrawn to the stomach, adequately insufflated with air, and upon careful examination, mucosa of the antrum, body, cardia and the fundus appeared normal, Except for diffuse erythema suggestive of portal hypertensive gastropathy with biopsies of the antrum and body taken. The scope was then withdrawn into the esophagus. The GE junction was located at 39 cm from the incisors. The esophagus appeared normal. There were no erosions or ulcerations seen and the patient tolerated the procedure well. IMPRESSION: 1. Moderate portal hypertensive gastropathy . 2. Biopsies of the duodenum and antrum and body. RECOMMENDATIONS: The findings of this examination were discussed with the patient.. Okay for diet. Continue current medical management. Await pathology from biopsies. Okay for discharge or otherwise medically stable. Patient should continue alcohol abstinence and follow-up with the GI clinic for continuing monitoring of liver enzymes and liver function.
--- NOTE | 2020-02-29 11:49 | P.PN ---
<Willie Bragg - Last Filed: 02/29/20 16:50> Subjective Progress Note Date: 02/29/20 Principal diagnosis: Patient is a 39-year-old male with a history of fatty infiltration of the liver, hypertension, and chronic alcohol abuse reportedly drinking a reported 12 beers daily for the past 3 years. He presented to [facility]'s emergency department on 02/25/20 with a chief complaint of abdominal pain, vomiting of bright red blood, and bright red blood per his rectum. Initially upo n arrival in ED, pt was tachycardic with a pulse of 106. Laboratory analysis showed a white blood cell count of 12.2, sodium 120, carbon dioxide 2121 5, creatinine 0.49, calcium 7.4, bilirubin 8.2, AST 182, ALT 30, alkaline phosphatase 145, lipase 571. His serum alcohol level was normal at 144. His INR came back elevated at 2. Secondary to pts chief complaints and lab findings, pt was started on IV Protonix x one dose followed by gentle hydration of IV fluids in the ER and after extensive evaluation by ER physician, pt was admitted to general medical unit with telemetry for acutely elevated liver enzymes on chronic liver disease, upper GI bleed with acute blood loss anemia, hyponatremia, hypokalemia, thrombocytopenia, and EtOH intoxication with impending withdrawal. 02/26/20 His sodium level dropped after 1 L fluid bolus. It was felt that he likely had hypovolemic hyponatremia. This is likely secondary to cirrhosis with fluid overload. He was started on Lasix. He underwent ultrasound of the liver which showed mild ascites, hepatomegaly with nodular contour suggesting cirrho sis, and an enlarged gallbladder with sludge. GI and nephrology were consulted. Case discussed with nephrology who agrees with continued diuresis with Lasix. He was admitted also started on CIWA protocol secondary to impending alcohol withdrawal. His sodium started improving. He required ativan x1 dose on 02/26/20. 02/27/20 Pt has not had any further episodes of hematemesis or hematochezia. He was evaluated by GI and continue Protonix twice a day. Plan for possible endoscopy once patient is stabilized and able to consent, patient continues to be encephalopathic today. He remains on CIWA withdrawal and received three additional doses of ativan on 02/27/20 accompanied by a sitter due to increased confusion. Hyponatremia rapidly improved status post administration of lasix and Tolvaptan, sodium 118 on 02/24 and now 133. Lasix was stopped at this time pending repeat sodium level and patient was started on D5W. 02/28/20: Patient's condition stable at this time and he has not had any further episodes of hematemesis or hematochezia since arrival on 02/25/20. Hemoglobin stable at 11.5. Thrombocytopenia remains with a platelet count of 116 and PT/INR remain elevated with PT of 20.0 and INR 1.95. Plan for possibly endoscopy pending further evaluation by GI. Patient' s mentation significantly improved from previous documented levels of mentation. Patient currently is awake and alert to person, place, time, and situation. Previous confusion/encephalopathic state reported yesterday was likely resulting from metabolic encephalopathy related to elevation in liver enzymes with cirrhosis vs repeated doses of Ativan given previously in the night vs EtOH withdrawal vs electrolyte imbalance and/or other metabolic changes/abnormalities. Now that mentation and condition has improved, plan for GI to discuss endoscopy with patient. CT of abdomen and pelv is without contrast revealed ascites with a marked fatty infiltrated liver, biliary dilation ovaries not identified, but there was a reported markedly enlarged gallbladder with mild pancreatitis, common bile duct dilation was not clearly identified. There was an order placed yesterday for paracentesis, limited Doppler RUQ ultrasound completed this morning revealed very difficult assessment of the hepatic vasculature due to hepatomegaly and sound being potential relation, there was no abdominal dilation of the main portal vein which is generally seen with venous portal hypertension some internal flow was visualized but demonstrated a pulsatile waveform, Very heterogenous liver with a hydropic gallbladder with thickened wall in slides suggestive of possible chronic cholecystitis, biliary ductal dilation, and mild right upper quadrant ascites. Paracentesis on hold at this time. D5W was discontinued pending repeat sodium tomorrow morning to stable sodium levels 3 draws today revealing sodium 134 with repeat of 132 and again at 132. Lasix to remain discontinued, and patient to be encouraged to increase his intake of foods high in protein. Pt reports that he "feels great" this morning and states significant improvement in lower extremity edema. Upon bedside examination, he denied having any further complaints or concerns at this time including headache, lightheadedness, dizzine ss, changes in vision or hearing, chills or diaphoresis, visual/auditory/tactile hallucinations, tremors, chest pain or palpitations, shortness of breath or dyspnea with exertion, abdominal pain, nausea, vomiting, any further episodes of hematochezia noted melena, or having any numbness/tingling/weakness in extremities. 02/29/20: Patient's condition stable at this time he continues to do well with no further episodes of hematemesis or hematochezia again since arrival on 02/25/20. Hemoglobin has remained stable and is currently 11.9. Thrombocytopenia remains but is improving with platelets now 139. Liver enzymes also improving with total bili of 10.1 and AST decreasing to 126. Patient's mentation remains intact as he is alert as he is awake and alert to person, place, time, and situation. Plan is for patient to have EGD completed at 10:30 this morning and awaiting further GI recommendations. Patient currently reports having diffuse abdominal tenderness, but denies pain. He also denies having any headache, lightheadedness, dizziness, chills, diaphoresis, sore throat or dyspha giovani, cough or congestion, chest pain or palpitations, shortness of breath, nausea, or vomiting. Patient swelling in lower extremities continues to improve and is nearly resolved today with only minimal nonpitting edema noted. Physical Examination General: Ill-appearing, no distress, appears at stated age Derm: + Jaundice, skin otherwise warm and dry with no diaphoresis Head: atraumatic, normocephalic, symmetric Eyes: EOMI, no lid lag, + scleral icterus Mouth: no lip lesion, mucus membranes moist Cardiovascular: S1S2 reg, no murmur, positive posterior tibial pulses bi laterally, Lungs: CTA bilateral, no rhonchi, no rales, no wheezing and no accessory muscle use. Respirations even, regular, and unlabored on room air. Abdominal: soft distended, diffuse tenderness in RUQ and epigastric region upon palpation, no guarding, no appreciable organomegally Musculoskeletal and Extremities: ROM and sensation intact no gross muscle atrophy noted, minimal non-pitting edema to BLE, no contractures Neuro: CN II-XII grossly intact, no focal neuro deficits, no tremors Psych: Awake, alert and oriented to person, place, time and situation. Appropriate affect and cooperative behaviors. Objective - Vital Signs Vital signs: Vital Signs Temp 98.1 F 12/31/20 01:47 Pulse 89 02/28/20 19:16 Resp 16 02/29/20 01:47 BP 129/64 02/29/20 01:47 Pulse Ox 95 02/29/20 01:47 Intake & Output 02/28/20 02/29/20 02/29/20 18:59 06:59 18:59 Intake Total 820 200 Output Total 800 500 Balance 20 -500 200 Intake: IV 200 Oral 820 Output: Urine 800 500 Other: Voiding Method Indwelling Catheter Indwelling Catheter Indwelling Catheter - Labs CBC & Chem 7: 02/29/20 08:14 02/29/20 08:14 Labs: Abnormal Lab Results - Last 24 Hours (Table) 02/28/20 02/28/20 02/29/20 Range/Units 06:38 12:40 08:14 RBC 3.57 L (4.30-5.90) m/uL Hgb 11.9 L (13.0-17.5) gm/dL Hct 37.1 L (39.0-53.0) % MCV 104.0 H (80.0-100.0) fL Plt Count 139 L (150-450) k/uL PT 20.0 H (9.9-11.9) sec INR 1.95 H (0.90-1.11) Sodium 132 L (137-145) mmol/L Carbon Dioxide (22-30) mmol/L BUN (9-20) mg/dL Creatinine (0.66-1.25) mg/dL Calcium (8.4-10.2) mg/dL Total Bilirubin (0.2-1.3) mg/dL AST (17-59) U/L Albumin (3.5-5.0) g/dL 02/29/20 02/29/20 Range/Units 08:14 08:14 RBC (4.30-5.90) m/uL Hgb (13.0-17.5) gm/dL Hct (39.0-53.0) % MCV (80.0-100.0) fL Plt Count (150-450) k/uL PT 20.2 H (9.9-11.9) sec INR 2.1 H (0.90-1.11) Sodium 133 L (137-145) mmol/L Carbon Dioxide 33 H (22-30) mmol/L BUN 8 L (9-20) mg/dL Creatinine 0.59 L (0.66-1.25) mg/dL Calcium 8.1 L (8.4-10.2) mg/dL Total Bilirubin 10.9 H (0.2-1.3) mg/dL AST 126 H (17-59) U/L Albumin 2.6 L (3.5-5.0) g/dL Assessment and Plan Plan: Acute on chronic liver disease, alcoholic hepatitis - Suspect decompensation cirrhosis due to ETOH - Hep profile, ferritin, SOLEDAD, AMA- normal - livers US which showed mild ascities, gallbladder hydrops without CBD dilatation - CT of abdomen and pelvis without contrast revealed ascites with a marked fatty infiltrated liver, biliary dilation ovaries not identified, but there was a reported markedly enlarged gallbladder with mild pancreatitis, common bile duct dilation was not clearly identified. - Limited Doppler RUQ ultrasound completed this morning revealed very difficult assessment of the hepatic vasculature due to hepatomegaly and sound being potential relation, there was no abdominal dilation of the main portal vein which is generally seen with venous portal hypertension some internal flow was visualized but demonstrated a pulsatile waveform, Very heterogenous liver with a hydropic gallbladder with thickened wall in slides suggestive of possible chronic cholecystitis, biliary ductal dilation, and mild right upper quadrant ascites. -LIBERTY 57 patient was started on prednisolone 40 mg daily. - GI note reviewed and pt going down for EGD today to rule out esophageal va rices - Pt counseled on abstaining from ETOH and risks of continued use including . Upper GI bleed with acute blood loss anemia -Protonix IVP BID -Regular diet per GI -Pt has not had any further episodes of hematemesis or hematochezia since arrival on 02/25/20. Hemoglobin stable at 11.9. Thrombocytopenia remains but improving with a platelet count of 139. PT and INR remained elevated with PT 20.2 and INR of 2.1. -Plan for endoscopy today at 10:30 AM and further recommendations by GI. -Serial CBCs Hyponatremia, improving -Sodium stable with morning labs revealing sodium of 133. -Likely resulting due to hypervolemia vs beer potomania -Pt received Lasix and tolvaptan x one dose. Both discontinued by nephro and pt was started on D5 on 02/26. -D5W was discontinued pending repeat sodium tomorrow morning secondary to stable sodium levels 3 draws today revealing sodium 134 with repeat of 132 and again at 132. Lasix to remain discontinued, and patient to be encouraged to increase his intake of foods high in protein and abstain from alcohol use. -Continue close monitoring with repeat morning labs. Hypokalemia -Stable this morning at 4.0 and we will recheck in a.m. Hypomagnesemia -Hypomagnesemia as evidenced by magnesium 1.6. Magnesium was replaced and we will repeat magnesium level in a.m. Thrombocytopenia -Thrombocytopenia likely secondary to liver disease. Platelets 139 this morning. -We will follow CBC with repeat a.m. labs ETOH withdrawal, imprnding DTs - CIWA with symptom triggered medication management with ativan - Thiamine - Folic acid - social work consult - Pt counseled on abstaining from ETOH and risks of continued use including . Neuropathy - B 12 normal - Suspect alcohol induced - IV thiamine daily Obesity with BMI 32 -Abstain from ETOH HTN -Vital signs every 4 hours and as needed and patient to continue daily medication management with norvasc and benzapril Elevated THS with diminished free T 4 - no overt signs of hypothyroidism - recommend recheck in 6 weeks Social stressors -No insurance, out of work as he reportedly worked in [employer] DVT prophylaxis: SCDs Discussed with: Patient, nursing Anticipated discharge date: 1-[address]: home vs substance abuse rehab program A total of 35 minutes was spent on the care of this complex patient more than 50% of the time was spent in counseling and care coordination. <Maxine Pa - Last Filed: 02/29/20 19:42> Objective - Vital Signs Vital signs: Vital Signs Temp 98.0 F 02/29/20 15:52 Pulse 83 02/29/20 15:52 Resp 15 02/29/20 15:52 BP 119/65 02/29/20 15:52 Pulse Ox 94 L 02/29/20 15:52 Intake & Output 02/29/20 02/29/20 03/01/20 06:59 18:59 06:59 Intake Total 200 Output Total 500 1650 Balance -500 -1450 Weight 107.048 kg Intake: IV 200 Output: Urine 500 1650 Uretheral (High) 650 Other: Voiding Method Indwelling Catheter Indwelling Catheter - Labs CBC & Chem 7: 02/29/20 08:14 12/31/20 08:14 Labs: Abnormal Lab Results - Last 24 Hours (Table) 02/29/20 02/29/20 02/29/20 Range/Units 08:14 08:14 08:14 RBC 3.57 L (4.30-5.90) m/uL Hgb 11.9 L (13.0-17.5) gm/dL Hct 37.1 L (39.0-53.0) % MCV 104.0 H (80.0-100.0) fL Plt Count 139 L (150-450) k/uL PT 20.2 H (9.0-12.0) sec INR 2.1 H (<1.2) Sodium 133 L (137-145) mmol/L Carbon Dioxide 33 H (22-30) mmol/L BUN 8 L (9-20) mg/dL Creatinine 0.59 L (0.66-1.25) mg/dL Calcium 8.1 L (8.4-10.2) mg/dL Total Bilirubin 10.9 H (0.2-1.3) mg/dL AST 126 H (17-59) U/L Albumin 2.6 L (3.5-5.0) g/dL Assessment and Plan Plan: Patient seen and examined independently. Patient was also seen by Willie Bragg NP and case was discussed. I am in agreement with subjective, physical exam, assessment and plan as written above and amended below. Gen: ill appearing, non toxic, no distress Derm: + jaundice, + warm, + dry HEENT: + scleral icterus, EOMI, No lid lesion or lag CV: S1S2 reg, no edema b/l LE, + PT pulse bilateral Lungs: Decreased bs b/l, no accessory muscle use Abdomen: + TTP right upper quandrant, Distended, no fluid wave Psych: Alert, Awake, appropriate D/W Dr. Cook portal gastropathy on EGD. Change to oral protonix.
[2020-02-29 12:38] VITALS: BMI 32.0
--- NOTE | 2020-02-29 13:28 | P.PN ---
Subjective Progress Note Date: 02/28/20 Principal diagnosis: Alcoholic hepatitis, elevated liver enzymes, hematemesis Patient is seen sitting bedside today. He is tolerating his diet. No further signs or symptoms GI bleeding. No other acute complaints. Objective - Vital Signs Vital signs: Vital Signs Temp 97.8 F 02/28/20 19:16 Pulse 89 02/28/20 19:16 Resp 18 02/28/20 19:16 BP 126/76 02/28/20 19:16 Pulse Ox 94 L 02/28/20 19:16 Intake & Output 02/28/20 02/28/20 02/29/20 06:59 18:59 06:59 Intake Total 400 820 Output Total 800 800 Balance -400 20 Intake: Oral 400 820 Output: Urine 800 800 Other: Voiding Method Indwelling Catheter Indwelling Catheter - Exam On physical examination, patient appears comfortable in no apparent distress. HEAD: Normocephalic, atraumatic. EYES: Scleral icterus. No conjunctival injection. MOUTH: No lesions, tongue midline. NECK: Trachea midline, no gross abnormalities. ABDOMEN: Soft, nontender to palpation. Bowel sounds are positive. No organomegaly. No guarding or rigidity. EXTREMITIES: No pedal edema. SKIN: No rashes, jaundice. NEUROLOGIC: Alert and oriented to person and place with no asterixis noted. - Labs CBC & Chem 7: 02/29/20 08:14 02/29/20 08:14 Labs: Abnormal Lab Results - Last 24 Hours (Table) 02/28/20 02/28/20 02/28/20 Range/Units 06:38 06:38 06:38 RBC 3.37 L (4.30-5.90) m/uL Hgb 11.5 L (13.0-17.5) gm/dL Hct 34.9 L (39.0-53.0) % MCV 103.4 H (80.0-100.0) fL Plt Count 116 L (150-450) k/uL PT 20.0 H (9.9-11.9) sec INR 1.95 H (0.90-1.11) Sodium 134 L (135-145) mmol/L Anion Gap 12.50 H (4.00-12.00) mmol/L BUN 7.0 L (9.0-27.0) mg/dL BUN/Creatinine Ratio 11.67 L (12.00-20.00) Ratio Calcium 7.6 L (8.7-10.3) mg/dL Total Bilirubin 11.6 H (0.2-1.2) mg/dL AST 138 H (14-35) U/L Albumin 2.20 L (3.80-4.90) g/dL Globulin 4.1 H (1.6-3.3) g/dL Albumin/Globulin Ratio 0.54 L (1.60-3.17) g/dL 02/28/20 02/28/20 Range/Units 09:48 12:40 RBC (4.30-5.90) m/uL Hgb (13.0-17.5) gm/dL Hct (39.0-53.0) % MCV (80.0-100.0) fL Plt Count (150-450) k/uL PT (9.9-11.9) sec INR (0.90-1.11) Sodium 132 L 132 L (135-145) mmol/L Anion Gap (4.00-12.00) mmol/L BUN (9.0-27.0) mg/dL BUN/Creatinine Ratio (12.00-20.00) Ratio Calcium (8.7-10.3) mg/dL Total Bilirubin (0.2-1.2) mg/dL AST (14-35) U/L Albumin (3.80-4.90) g/dL Globulin (1.6-3.3) g/dL Albumin/Globulin Ratio (1.60-3.17) g/dL Assessment and Plan (1) Acute alcoholic hepatitis Narrative/Plan: 39-year-old male with a known history of alcohol abuse presenting for hematemesis and abdominal pain. Patient has a significant history of alcohol abuse in the past and continues to consume alcohol although he reports he has tried to cut down. He had multiple episodes of bright red blood in his vomitus prior to presentation however hemoglobin has remained stable at 11.7 with no significant elevation in BUN. Liver enzymes are markedly elevated and consistent with acute alcoholic hepatitis with total bilirubin 7.6, alkaline phosphatase 118, AST 169 and ALT 27. Acute viral hepatitis panel testing and SOLEDAD were negative. Ultrasound of the abdomen showed hepatomegaly with possible cirrhotic changes and mild ascites. No further episodes of hematemesis or bright red blood per rectum today. Liver enzymes remain stable. Current Visit: Yes Status: Acute Code(s): K70.10 - ALCOHOLIC HEPATITIS WITHOUT ASCITES SNOMED Code(s): 8018424 (2) Hematemesis Current Visit: Yes Status: Acute Code(s): K92.0 - HEMATEMESIS SNOMED Code(s): 2519137 (3) Elevated liver enzymes Current Visit: Yes Status: Acute Code(s): R74.8 - ABNORMAL LEVELS OF OTHER SERUM ENZYMES SNOMED Code(s): 645472278 Plan: Supportive care Okay to advance diet, fluid restricted as tolerated Continue to monitor hemoglobin and hematocrit and transfuse as needed Continue Protonix 40 mg twice daily Nephrology service is following the patient for severe hyponatremia with improved level at 129 today, defer management of diuretics and hyponatremia to their service Alcohol abstinence Continue to monitor for signs or symptoms of alcohol withdrawal and treat Plan for EGD tomorrow for evaluation hematemesis, all of the risks, benefits and possible complications of the procedure described to the patient with all of his questions answered to his satisfaction Thank you for allowing us to participate in the care of the patient we will continue to follow
--- NOTE | 2020-02-29 15:16 | PN ---
PROGRESS NOTE Patient is seen for followup for hyponatremia which was hypervolemic. Serum sodium has improved to 133 today. The patient is comfortable, denies any significant complaints. He is scheduled for paracentesis today. PHYSICAL EXAMINATION: Blood pressure is 127/84, heart rate 77 per minute. Patient is afebrile. EXAMINATION OF THE HEART: S1 and S2. EXAMINATION OF LUNGS: Decreased breath sounds at bases. ABDOMEN: Soft, non-tender. Examination of lower extremities shows no significant edema in the lower extremities. HOTBED LEVER OPERATOR exam is grossly intact. LABS: Labs show sodium 133, potassium 4.0, chloride 98, CO2 33, BUN 8, serum creatinine 0.59, hemoglobin 11.9 g/dL. ASSESSMENT: 1. Hypervolemic hyponatremia, currently improved. 2. Mental status changes/encephalopathy, multifactorial, now improved. Etiology is possibly related to ativan, hyponatremia, and element of DTs. Serum ammonia level was not elevated. Ativan has been decreased. 3. Hypertension, maintained on lisinopril. 4. Acute alcoholic hepatitis. 5. Chronic liver disease with portal hypertension, coagulopathy and thrombocytopenia. Etiology is ETOH abuse. PLAN: Continue to encourage increased oral intake. Monitor serum sodium levels. MMODL / IJN: [id number] / MTDD
[2020-02-29] MEDS: PANTOPRAZOLE 40 MG TABLET PO SCH (19:10)
[2020-02-29] MEDS: HYDROcodone/APAP 5-325MG 1 EACH TAB PO PRN (19:10)
[2020-03-01] MEDS: THIAMINE 100 MG/ML 2 ML VIAL IVP SCH (08:51)
[2020-03-01] MEDS: PANTOPRAZOLE 40 MG TABLET PO SCH ×2 (08:56→15:47)
[2020-03-01] MEDS: lisinopriL 20 MG TAB PO SCH (08:56)
[2020-03-01] MEDS: FOLIC ACID 1 MG TAB PO SCH (08:56)
[2020-03-01 09:51] LABS: African American GFR (CKD) >90 (>60 ml/min/1.73 sqM); Anion Gap 3 mmol/L; Blood Urea Nitrogen 10 mg/dL (9-20); Calcium 7.9 mg/dL (8.4-10.2); Carbon Dioxide 30 mmol/L (22-30); Chloride 97 mmol/L (98-107); Glucose 97 mg/dL (74-99); Non-African American GFR(CKD) >90 (>60 ml/min/1.73 sqM); Sodium 130 mmol/L (137-145)
[2020-03-01] MEDS: prednisoLONE ORAL SOLUTION 15MG/5ML CUP PO SCH (10:57)
[2020-03-01 11:06] LABS: Total Bilirubin 9.6 mg/dL (0.2-1.3)
[2020-03-01] MEDS: POTASSIUM CHLORIDE ER 20 MEQ TAB.ER PO SCH ×2 (13:33→15:47)
[2020-03-01] MEDS ORDERED: ARTIFICIAL TEARS OINTMENT 3.5 GM TUBE BOTH EYES PRN (15:18)
[2020-03-01] MEDS ORDERED: FUROSEMIDE 20 MG TAB PO STA (15:49)
[2020-03-01] MEDS ORDERED: HALOPERIDOL LACTATE 5 MG/ML 1 ML VIAL IM STA (16:10)
--- NOTE | 2020-03-01 16:21 | PN ---
PROGRESS NOTE Patient is seen for followup for hyponatremia. The patient is currently lying in bed, he is comfortable. Denies any significant complaints. He was hypervolemic and was maintained on IV Lasix initially. Serum sodium had increased to 132 and 133. Diuretics were discontinued. The patient is status post paracentesis done yesterday. PHYSICAL EXAMINATION: On examination today, blood pressure is 143/78, heart rate 94 per minute, patient is afebrile. Examination of the heart S1, S2. Examination of the lungs, bilateral breath sounds are heard. Abdomen is soft, nontender. Examination of lower extremities shows trace edema in lower extremities. CLINICAL SCIENTIST exam grossly intact. LABS: Show sodium 130, potassium 3.0, chloride 97, BUN 10, serum creatinine 0.5 mg/dL. ASSESSMENT: 1. Hyponatremia which was hypervolemic, status post IV Lasix. The patient did receive one dose of tolvaptan as well. Serum sodium is slightly lower today. I will resume low-dose loop diuretics and give him a dose of Lasix 20 mg p.o. today. 2. Hypokalemia associated with decreased oral intake, replace aggressively. 3. Acute alcoholic hepatitis. 4. Chronic liver disease secondary to ETOH abuse. 5. Encephalopathy secondary to DTs and electrolyte imbalance and Ativan currently improved. PLAN: Add low-dose oral Lasix. Repeat labs in a.m. MMODL / IJN: [id number] /
--- NOTE | 2020-03-01 19:11 | P.PN ---
Subjective Progress Note Date: 03/01/20 (Delayed charting) Principal diagnosis: vomiting blood Patient is a 39-year-old male with a history of fatty infiltration of the liver, hypertension, and alcohol abuse who presented to the emergency department secondary to abdominal pain, vomiting of bright red blood, and bright red blood per rectum. In the ER he underwent an extensive evaluation. Initially was tachycardic with a pulse of 106. Laboratory analysis showed a white blood cell count of 12.2, sodium 120, carbon dioxide 2121 5, creatinine 0.49, calcium 7.4, bilirubin 8.2, AST 182, ALT 30, alkaline phosphatase 145, lipase 571. His serum alcohol level was normal at 144. His INR came back elevated at 2. In the ER he was given a dose of IV Protonix and was started on IV fluids. Arrangements were made for admission. His sodium level dropped after 1 L fluid bolus. It was felt that he likely had hypovolemic hyponatremia. This is likely secondary to cirrhosis with fluid overload. He was started on Lasix. He underwent ultrasound of the liver which showed mild ascites, hepatomegaly with nodular contour suggesting cirrhosis, an enlarged gallbladder with sludge. GI and nephrology were consulted. Case discussed with nephrology who agrees with continued diuresis with Lasix. He was also started on CIWA protocol secondary to impending alcohol withdrawal. His sodium started improving after a dose of Tolvapitam. He required ativan on 02/25 and had increasing confusion on 02/26. Stat ammonia ordered and was normal, his bilirubin was incresaing. His morphine was discontinued. CT abd and plevis showed mild pancreatitis. Liver doppler was not able to visualize the portal vasculature well, and again showed fatty liver with coarsened architecture, mild ascities, and enlarged gallbladder. He underwent EGD on 02/29/2020 which showed portal gastropathy. His Protonix was switched to oral. He was started on prednisolone on 02/28/2020 to help with his alcoholic hepatitis. Patient seen and examined at bedside. Denies headache, pain, fidgeting, nausea, vomiting. He is slow to answer questions. Think he has not in the hospital anymore. He remembers being in the hospital earlier today. General: Ill-appearing, no distress, appears at stated age Derm: + Jaundice, warm, dry Head: atraumatic, normocephalic, symmetric Eyes: EOMI, no lid lag, + sclera Mouth: no lip lesion, mucus membranes moist Cardiovascular: S1S2 reg, no murmur, positive posterior tibial pulse bilateral, Lungs: CTA bilateral, no rhonchi, no rales , no accessory muscle use Abdominal: soft, less distended, nontender to palpation, no guarding, no appreciable organomegaly Ext: 1+ lower extremity edema, no contractures, no gross muscle atrophy Neuro: CN II-XI grossly intact, no focal neuro deficits, tremors Psych: Alert, oriented, appropriate affect Alcoholic hepatitis, Acute on chronic liver disease - [place] 57, on steroids starting 02/27 - Suspect decompensation cirrhosis due to ETOH - Hep profile, ferritin, SOLEDAD, AMA- normal - livers US which showed mild ascities, gallbladder hydrops without CBD dilatation - lasix - GI recs appreciated - Abstain from ETOH Upper GI bleed secondary to portal gastropathy with acute blood loss anemia - Protonix PO BID - Increased pain, transition back to full liquid diet - GI recs - serial CBC Hyponatremia, stable - due to hypervolemia - Lasix resume 03/01/20 on oral - Nephro recs: tolvaptan X 1 02/25, hold lasix due to rapid increase Hypokalemia -Replace and recheck in a.m. -Check magnesium level in a.m. Thrombocytopenia - likely due to liver disease - follow CBC Delirium Tremens - CIWA with ativan - Thiamine - Folic acid - social work - abstain from alcohol nueorpathy - B 12 normal - Suspect alcohol induced - IV thiamine daily Obesity with BMI 32 - abstain from ETOH HTN - norvasc and benzapril Elevated THS with diminished free T 4 - no over sigsn of hypothyroidism - recommend recheck in 6 weeks Social stressors - no insurance, out of work as he works in [employer] DVT prophylaxis: SCDs Discussed with: Patient, nursing Anticipated discharge date: 4-[address]: home A total of 35 minutes was spent on the care of this complex patient more than 50% of the time was spent in counseling and care coordination. Objective - Vital Signs Vital signs: Vital Signs Temp 98.4 F 03/01/20 14:00 Pulse 95 03/01/20 14:00 Resp 16 03/01/20 14:00 BP 139/71 03/01/20 14:00 Pulse Ox 100 03/01/20 14:00 Intake & Output 03/01/20 03/01/20 03/02/20 06:59 18:59 06:59 Intake Total 918 474 Balance 918 474 Intake: Oral 918 474 Other: Voiding Method Indwelling Catheter # Voids 2 - Labs CBC & Chem 7: 02/29/20 08:14 03/01/20 08:58 Labs: Abnormal Lab Results - Last 24 Hours (Table) 03/01/20 03/01/20 Range/Units 08:58 08:58 Sodium 130 L (137-145) mmol/L Potassium 3.0 L (3.5-5.1) mmol/L Chloride 97 L (98-107) mmol/L Creatinine 0.55 L (0.66-1.25) mg/dL Calcium 7.9 L (8.4-10.2) mg/dL Total Bilirubin 9.6 H (0.2-1.3) mg/dL AST 126 H (17-59) U/L
--- NOTE | 2020-03-01 22:01 | P.PN ---
Subjective Progress Note Date: 03/01/20 Principal diagnosis: Alcoholic hepatitis, elevated liver enzymes, hematemesis Patient is seen lying in bed. No acute complaints. His been tolerating a diet with no signs or symptoms of GI bleeding. Objective - Vital Signs Vital signs: Vital Signs Temp 98.2 F 03/01/20 09:48 Pulse 103 H 03/01/20 09:48 Resp 16 03/01/20 09:48 BP 125/81 03/01/20 09:48 Pulse Ox 98 03/01/20 02:03 Intake & Output 02/29/20 03/01/20 03/01/20 18:59 06:59 18:59 Intake Total 200 918 Output Total 1650 Balance -1450 918 Weight 107.048 kg Intake: IV 200 Oral 918 Output: Urine 1650 Uretheral (High) 650 Other: Voiding Method Indwelling Catheter Indwelling Catheter # Voids 2 - Exam On physical examination, patient appears comfortable in no apparent distress. HEAD: Normocephalic, atraumatic. EYES: Scleral icterus. No conjunctival injection. MOUTH: No lesions, tongue midline. NECK: Trachea midline, no gross abnormalities. ABDOMEN: Soft, nontender to palpation. Bowel sounds are positive. No organo megaly. No guarding or rigidity. EXTREMITIES: No pedal edema. SKIN: No rashes, jaundice. NEUROLOGIC: Alert and oriented to person and place with no asterixis noted. - Labs CBC & Chem 7: 02/29/20 08:14 03/01/20 19:39 Labs: Abnormal Lab Results - Last 24 Hours (Table) 03/01/20 03/01/20 Range/Units 08:58 08:58 Sodium 130 L (137-145) mmol/L Potassium 3.0 L (3.5-5.1) mmol/L Chloride 97 L (98-107) mmol/L Creatinine 0.55 L (0.66-1.25) mg/dL Calcium 7.9 L (8.4-10.2) mg/dL Total Bilirubin 9.6 H (0.2-1.3) mg/dL AST 126 H (17-59) U/L Assessment and Plan (1) Acute alcoholic hepatitis Narrative/Plan: 39-year-old male with a known history of alcohol abuse presenting for hematemesis and abdominal pain. Patient has a significant history of alcohol abuse in the past and continues to consume alcohol although he reports he has tried to cut down. He had multiple episodes of bright red blood in his vomitus prior to presentation however hemoglobin has remained stable at 11.7 with no significant elevation in BUN. Liver enzymes are markedly elevated and consistent with acute alcoholic hepatitis with total bilirubin 7.6, alkaline phosphatase 118, AST 169 and ALT 27. Acute viral hepatitis panel testing and SOLEDAD were negative. Ultrasound of the abdomen showed hepatomegaly with possible cirrhotic changes and mild ascites. No further episodes of hematemesis or bright red blood per rectum today. Liver enzymes remain stable. Current Visit: Yes Status: Acute Code(s): K70.10 - ALCOHOLIC HEPATITIS WITHOUT ASCITES SNOMED Code(s): 7871876 (2) Hematemesis Narrative/Plan: EGD performed with no evidence of varices, old or active bleeding, with portal hypertensive gastropathy noted. Current Visit: Yes Status: Acute Code(s): K92.0 - HEMATEMESIS SNOMED Code(s): 7122336 (3) Elevated liver enzymes Current Visit: Yes Status: Acute Code(s): R74.8 - ABNORMAL LEVELS OF OTHER SERUM ENZYMES SNOMED Code(s): 312931563 Plan: Supportive care Okay for sodium restricted, fluid restricted diet Continue to monitor hemoglobin and hematocrit and transfuse as needed Continue Protonix 40 mg twice daily Nephrology service is following the patient for severe hyponatremia with improved level at 129 today, defer management of diuretics and hyponatremia to their service Alcohol abstinence Continue to monitor for signs or symptoms of alcohol withdrawal and treat EGD was performed with evidence of portal hypertensive gastropathy and no varices Thank you for allowing us to participate in the care of the patient we will continue to follow
[2020-03-02 06:45] LABS: Basophils % (A) 1 %; Eosinophils # (A) 0.1 k/uL (0-0.7); Eosinophils % (A) 1 %; HCT 36.3 % (39.0-53.0); HGB 11.2 gm/dL (13.0-17.5); Lymphocytes # (A) 2.1 k/uL (1.0-4.8); Lymphocytes % (A) 23 %; MCH 32.3 pg (25.0-35.0); MCHC 30.9 g/dL (31.0-37.0); MCV 104.5 fL (80.0-100.0); Macrocytosis Moderate; Mean Platelet Volume 8.9; Monocytes % (A) 10 %; Neutrophils # (A) 5.8 k/uL (1.3-7.7); Neutrophils % (A) 63 %; Platelet Count 132 k/uL (150-450); RBC 3.47 m/uL (4.30-5.90); RDW 15.2 % (11.5-15.5); WBC 9.1 k/uL (3.8-10.6)
[2020-03-02 07:17] LABS: Target Cells Present
[2020-03-02 08:09] VITALS: BP 139/84; PULSE 90; RESP 20; TEMP 98.3
--- NOTE | 2020-03-02 08:15 | P.PN ---
Subjective Progress Note Date: 03/02/20 Principal diagnosis: This is a 39-year-old male with hyponatremia, secondary to chronic liver disease, admitted with nausea vomiting and GI bleeding. He has history of alcoholism and has liver disease. His sodium went down from 120 to 116, with IV fluids. He was started on IV Lasix and currently on by mouth Lasix with improvement in sodium, to 133 day before yesterday. Yesterday it was 1:30. Today's labs are not available Patient denies any complaints at all. No dizziness no chest pain shortness of breath nausea vomiting diarrhea good appetite. Intake is recorded at 1118 and output at 1650 Objective - Vital Signs Vital signs: Vital Signs Temp 98.1 F 03/02/20 02:00 Pulse 82 03/02/20 02:00 Resp 17 03/02/20 02:00 BP 138/78 03/02/20 02:00 Pulse Ox 95 03/02/20 02:00 Intake & Output 03/01/20 03/02/20 03/02/20 18:59 06:59 18:59 Intake Total 474 474 Output Total 1000 Balance 474 -526 Intake: Oral 474 474 Output: Urine 1000 Other: Voiding Method Indwelling Catheter # Voids 4 1 Examination awake alert oriented comfortable, jaundiced HEENT exam no JVP neck is supple no facial asymmetry Lungs are clear to auscultation good air entry bilaterally Heart sounds unremarkable for any murmur rub gallop Abdomen soft nontender nondistended Extremity exam was trace edema Neurologically awake alert oriented - Labs CBC & Chem 7: 03/02/20 05:49 03/01/20 19:39 Labs: Abnormal Lab Results - Last 24 Hours (Table) 03/01/20 03/01/20 03/02/20 Range/Units 08:58 08:58 05:49 RBC 3.47 L (4.30-5.90) m/uL Hgb 11.2 L (13.0-17.5) gm/dL Hct 36.3 L (39.0-53.0) % MCV 104.5 H (80.0-100.0) fL MCHC 30.9 L (31.0-37.0) g/dL Plt Count 132 L (150-450) k/uL Sodium 130 L (137-145) mmol/L Potassium 3.0 L (3.5-5.1) mmol/L Chloride 97 L (98-107) mmol/L Creatinine 0.55 L (0.66-1.25) mg/dL Calcium 7.9 L (8.4-10.2) mg/dL Total Bilirubin 9.6 H (0.2-1.3) mg/dL AST 126 H (17-59) U/L Assessment and Plan Plan: Impression 1. Hypervolemic hyponatremia responded to IV Lasix and by mouth Lasix. 2. Hypokalemia secondary to low intake resolved 3. History of alcohol intake, cirrhosis, GI bleed. 4. liver disease with bilirubin 9.6 5. TSH is high at 8.6, free pH though is high at 2.5 , normal range being up to 2.19. Recommendation 1. Maintain current Lasix dose until labs are available 2. Check orthostatic changes to ensure there is no hypovolemia 3. Pending labs for rest of the electrolytes
[2020-03-02] MEDS: THIAMINE 100 MG/ML 2 ML VIAL IVP SCH (08:21)
[2020-03-02] MEDS: lisinopriL 20 MG TAB PO SCH (08:21)
[2020-03-02] MEDS: PANTOPRAZOLE 40 MG TABLET PO SCH (08:21)
[2020-03-02] MEDS: FOLIC ACID 1 MG TAB PO SCH (08:21)
[2020-03-02 09:57] LABS: African American GFR (CKD) 147.8 (60.0-200.0); Albumin 2.2 g/dL (3.80-4.90); Albumin/Globulin Ratio 0.54 (1.60-3.17); Anion Gap 5.4 mmol/L (4.00-12.00); BUN/Creat Ratio 11.67 Ratio (12.00-20.00); Carbon Dioxide 27.6 mmol/L (21.6-31.8); Globulin 4.1 g/dL (1.6-3.3); Non-African American GFR(CKD) 127.5 (60.0-200.0); Potassium 3.3 mmol/L (3.5-5.5); Total Bilirubin 8.2 mg/dL (0.3-1.2); Total Protein 6.3 g/dL (6.2-8.2)
[2020-03-02] MEDS: prednisoLONE ORAL SOLUTION 15MG/5ML CUP PO SCH (11:14)
--- NOTE | 2020-03-02 12:31 | P.DS ---
Providers Date of admission: 02/25/20 08:55 Expected date of discharge: 03/02/20 Attending physician: Maxine Pa DO Consults: 02/25/20 11:16 Consult Physician Routine Consulting Provider: Blessing Dawn Consult Reason/Comments: acute liver fialure Do you want consulting provider notified?: Yes 02/25/20 13:02 Consult Physician Routine Consulting Provider: Campbell Gotti Consult Reason/Comments: hypervolemic hyponatremia Do you want consulting provider notified?: Yes Primary care physician: Carlos Enrique Crowder Hospital Course: Discharge Diagnosis: Alcoholic hepatitis Acute on chronic liver disease Upper GI bleed secondary to portal gastropathy with acute blood loss anemia Hyponatremia, stable Hypokalemia Thrombocytopenia Delirium Tremens nueorpathy, alcohol induced Obesity with BMI 32 HTN Elevated THS with diminished free T 4 Social stressors Hospital Course: Patient is a 39-year-old male with a history of fatty infiltration of the liver, hypertension, and alcohol abuse who presented to the emergency department secondary to abdominal pain, vomiting of bright red blood, and bright red blood per rectum. In the ER he underwent an extensive evaluation. Initially was tachycardic with a pulse of 106. Laboratory analysis showed a white blood cell count of 12.2, sodium 120, creatinine 0.49, calcium 7.4, bilirubin 8.2, AST 182, ALT 30, alkaline phosphatase 145, lipase 571. His serum alcohol level was normal at 144. His INR came back elevated at 2. In the ER he was given a dose of IV Protonix and was started on IV fluids. Arrangements were made for admission. His sodium level dropped after 1 L fluid bolus. It was felt that he likely had hypovolemic hyponatremia. This is likely secondary to cirrhosis with fluid overload. He was started on Lasix. He underwent ultrasound of the liver which showed mild ascites, hepatomegaly with nodular contour suggesting cirrhosis, an enlarged gallbladder with sludge. GI and nephrology were consulted. Case discussed with nephrology who agrees with continued diuresis with Lasix. He was also started on CIWA protocol secondary to impending alcohol withdrawal. His sodium started improving after a dose of Tolvapitam. He required ativan on 02/25 and had increasing confusion on 02/26. Stat ammonia ordered and was normal, his bilirubin was increasing. His morphine was discontinued and his mentation. CT abd and plevis showed mild pancreatitis. Liver doppler was not able to visualize the portal vasculature well, and again showed fatty liver with coarsened architecture, mild ascities, and enlarged gallbladder. He underwent EGD on 02/29/2020 which showed portal gastropathy. His Protonix was switched to oral. He was started on prednisolone on 02/28/2020 to help with his alcoholic hepatitis and continued to have improvement in his liver function. He did have some increased pain with a regular diet and he w2a sdecreased down back to a full liquid deit with he tolerated without abdominal pain. His sodium stabalized and he was restarted on lasix with improvement in his fluid status. His bilirubin was down trending. He was feeling better and wants to be discharged home as it was his sons birthday. We discussed that he needs to abstain from alcohol and enroll in here support program we also discussed the importance of completing 21 days of prednisone and then following up with his primary and Dr. Soriano for a continued taper. We discussed the importance of abstinence as if he relapses and drinking he likely will go into fulminant liver failure. He also was given a new prescription for lisinopril. He will continue on Lasix and Protonix as well. He was discharged home in stable condition. On day of discharge his bilirubin was 8.2, sodium 134, potassium 3.3. He is instructed to return to the emergency department his yellowing got worse, increased abdominal pain, increased confusion. Patient seen and examined at bedside. He denies any abdominal pain, breathing is good, he is feeling well, nose importance of follow-up. Vital signs reviewed and stable. General: non toxic, no distress, appears at stated age Derm: + Jaundice warm, dry Head: atraumatic, normocephalic, symmetric Eyes: EOMI, no lid lag, +icteric sclera Mouth: no lip lesion, mucus membranes moist Cardiovascular: S1S2 reg, no murmur, positive posterior tibial pulse bilateral, Lungs: CTA bilateral, no rhonchi, no rales , no accessory muscle use Abdominal: soft, nontender to palpation, no guarding, no appreciable organomegaly Ext: no gross muscle atrophy, trace edema, no contractures Neuro: CN II-XI grossly intact, no focal neuro deficits Psych: Alert, oriented, appropriate affect A total of 35 minutes of time were spent preparing this complex discharge summary . Patient Condition at Discharge: Fair Plan - Discharge Summary Discharge Rx Participant: No New Discharge Prescriptions: New prednisoLONE ORAL 15MG/5ML GIACOMO [Prelone] 40 mg PO DAILY #350 ml Pantoprazole [Protonix] 40 mg PO AC-BID #60 tablet. lisinopriL [Zestril] 20 mg PO DAILY #30 tab Furosemide [Lasix] 20 mg PO DAILY #30 tab Discontinued amLODIPine BESYLATE/BENAZEPRIL [Lotrel 10-40 MG] 1 cap PO DAILY Discharge Medication List Furosemide [Lasix] 20 mg PO DAILY #30 tab 03/02/20 [Rx] Pantoprazole [Protonix] 40 mg PO AC-BID #60 tablet. 03/02/20 [Rx] lisinopriL [Zestril] 20 mg PO DAILY #30 tab 03/02/20 [Rx] prednisoLONE ORAL 15MG/5ML GIACOMO [Prelone] 40 mg PO DAILY #350 ml 03/02/20 [Rx] Follow up Appointment(s)/Referral(s): Carlos Enrique Crowder MD [Primary Care Provider] - 1-2 days (Please call office Wednesday to make your follow-up appointment. Thank you.) [facility] [NON-STAFF] - 1 Week (if needed for uninsured patients) Luisito Cook MD [STAFF PHYSICIAN] - 4 Weeks Patient Instructions/Handouts: Gastrointestinal Bleeding (DC), Hyponatremia (DC) Activity/Diet/Wound Care/Special Instructions: Activity: as tolerated Diet: full liquids for 2 more days then advance as tolerated to regular diet Special Instructions: Abstain from Alcohol If yellowing of your skin gets worse return to the hospital Discharge Disposition: HOME SELF-CARE
--- NOTE | 2020-03-02 18:37 | P.PN ---
Subjective Progress Note Date: 03/02/20 Principal diagnosis: Alcoholic hepatitis, elevated liver enzymes, hematemesis Patient is seen sitting bedside. He is tolerated diet. No nausea or vomiting. No signs of bleeding. Objective - Vital Signs Vital signs: Vital Signs Temp 98.3 F 03/02/20 08:00 Pulse 90 03/02/20 08:00 Resp 20 03/02/20 08:00 BP 139/84 03/02/20 08:00 Pulse Ox 94 L 03/02/20 08:00 Intake & Output 03/01/20 03/02/20 03/02/20 18:59 06:59 18:59 Intake Total 474 474 240 Output Total 1000 Balance 474 -526 240 Intake: Oral 474 474 240 Output: Urine 1000 Other: Voiding Method Indwelling Catheter # Voids 4 1 - Exam On physical examination, patient appears comfortable in no apparent distress. HEAD: Normocephalic, atraumatic. EYES: Scleral icterus. No conjunctival injection. MOUTH: No lesions, tongue midline. NECK: Trachea midline, no gross abnormalities. ABDOMEN: Soft, nontender to palpation. Bowel sounds are positive. No organomegaly. No guarding or rigidity. EXTREMITIES: No pedal edema. SKIN: No rashes, jaundice. NEUROLOGIC: Alert and oriented to person and place with no asterixis noted. - Labs CBC & Chem 7: 03/02/20 05:49 03/02/20 05:49 Labs: Abnormal Lab Results - Last 24 Hours (Table) 03/02/20 03/02/20 Range/Units 05:49 05:49 RBC 3.47 L (4.30-5.90) m/uL Hgb 11.2 L (13.0-17.5) gm/dL Hct 36.3 L (39.0-53.0) % MCV 104.5 H (80.0-100.0) fL MCHC 30.9 L (31.0-37.0) g/dL Plt Count 132 L (150-450) k/uL Sodium 134 L (135-145) mmol/L Potassium 3.3 L (3.5-5.5) mmol/L BUN 7.0 L (9.0-27.0) mg/dL BUN/Creatinine Ratio 11.67 L (12.00-20.00) Ratio Calcium 8.0 L (8.7-10.3) mg/dL Total Bilirubin 8.2 H (0.3-1.2) mg/dL AST 117 H (14-35) U/L Albumin 2.20 L (3.80-4.90) g/dL Globulin 4.1 H (1.6-3.3) g/dL Albumin/Globulin Ratio 0.54 L (1.60-3.17) g/dL Assessment and Plan (1) Acute alcoholic hepatitis Narrative/Plan: 39-year-old male with a known history of alcohol abuse presenting for he matemesis and abdominal pain. Patient has a significant history of alcohol abuse in the past and continues to consume alcohol although he reports he has tried to cut down. He had multiple episodes of bright red blood in his vomitus prior to presentation however hemoglobin has remained stable at 11.7 with no significant elevation in BUN. Liver enzymes are markedly elevated and consistent with acute alcoholic hepatitis with total bilirubin 7.6, alkaline phosphatase 118, AST 169 and ALT 27. Acute viral hepatitis panel testing and SOLEDAD were negative. Ultrasound of the abdomen showed hepatomegaly with possible cirrhotic changes and mild ascites. No further episodes of hematemesis or bright red blood per rectum today. Liver enzymes remain stable. Status: Acute Code(s): K70.10 - ALCOHOLIC HEPATITIS WITHOUT ASCITES SNOMED C ode(s): 4339624 (2) Hematemesis Narrative/Plan: EGD performed with no evidence of varices, old or active bleeding, with portal hypertensive gastropathy noted. Status: Acute Code(s): K92.0 - HEMATEMESIS SNOMED Code(s): 8530878 (3) Elevated liver enzymes Status: Acute Code(s): R74.8 - ABNORMAL LEVELS OF OTHER SERUM ENZYMES SNOMED Code(s): 403416444 Plan: Supportive care Okay for sodium restricted, fluid restricted diet Continue to monitor hemoglobin and hematocrit and transfuse as needed Continue Protonix 40 mg twice daily Nephrology service is following the patient Alcohol abstinence Continue to monitor for signs or symptoms of alcohol withdrawal and treat EGD was performed with evidence of portal hypertensive gastropathy and no varices Thank you for allowing us to participate in the care of the patient we will continue to follow
== END 2020-03-02 12:15 | disposition home or self-care (01) | DRG 441 ==
LOC: EC 05:40 → 1SOBS 07:27 → OBSVTOIN 08:55 → 4SSUR 09:02
PROVIDERS: ADMIT Internal Medicine; ATTEND Internal Medicine
PROC: 0DB98ZX Excision of Duodenum, Via Natural or Artificial Opening Endoscopic, Diagnostic (ICD-10-PCS; principal; 2020-02-29 08:10)
PROC: 0DB68ZX Excision of Stomach, Via Natural or Artificial Opening Endoscopic, Diagnostic (ICD-10-PCS; principal; 2020-02-29 08:10)
DX: K76.6 Portal hypertension (principal); K85.90 Acute pancreatitis without necrosis or infection, unspecified; D62 Acute posthemorrhagic anemia; D68.9 Coagulation defect, unspecified; F10.231 Alcohol dependence with withdrawal delirium; K82.1 Hydrops of gallbladder; E87.1 Hypo-osmolality and hyponatremia; K31.89 Other diseases of stomach and duodenum; E66.9 Obesity, unspecified; D69.6 Thrombocytopenia, unspecified; E86.1 Hypovolemia; E87.6 Hypokalemia; I10 Essential (primary) hypertension; K76.0 Fatty (change of) liver, not elsewhere classified; K74.60 Unspecified cirrhosis of liver; K72.90 Hepatic failure, unspecified without coma; E87.70 Fluid overload, unspecified; K70.11 Alcoholic hepatitis with ascites; Z68.32 Body mass index [BMI] 32.0-32.9, adult; Z82.49 Family history of ischemic heart disease and other diseases of the circulatory system; Z98.890 Other specified postprocedural states
CPT/HCPCS: 36415; 43239; 74176; 76705; 80048; 80053; 80074; 80320; 82140; 82247; 82607; 82728; 83605; 83690; 83735; 83930; 83935; 84132; 84295; 84300; 84439; 84443; 84450; 84460; 84484; 85025; 85027; 85610; 85730; 86038; 86376; 86850; 86900; 86901; 88305; 93005; 93976; 96361; 96372; 96374; 96375; 99285

== ENCOUNTER 2020-04-10 22:49 | Inpatient (IN) | payer OTHER ==
[2020-04-10 23:51] LABS: Basophils # (A) 0.1 k/uL (0-0.2); Basophils % (A) 1 %; Eosinophils # (A) 0.3 k/uL (0-0.7); Eosinophils % (A) 3 %; HCT 37.4 % (39.0-53.0); HGB 12.6 gm/dL (13.0-17.5); Lymphocytes # (A) 2.5 k/uL (1.0-4.8); Lymphocytes % (A) 25 %; MCHC 33.7 g/dL (31.0-37.0); Mean Platelet Volume 7.8; Monocytes # (A) 0.9 k/uL (0-1.0); Monocytes % (A) 9 %; Neutrophils # (A) 6.3 k/uL (1.3-7.7); Neutrophils % (A) 61 %; Platelet Count 109 k/uL (150-450); RBC 3.82 m/uL (4.30-5.90); RDW 15.6 % (11.5-15.5); WBC 10.3 k/uL (3.8-10.6)
[2020-04-10 23:56] LABS: ALT 44 U/L (4-49); AST 230 U/L (17-59); African American GFR (CKD) >90 (>60 ml/min/1.73 sqM); Albumin 2.7 g/dL (3.5-5.0); Alkaline Phosphatase 122 U/L (38-126); Amylase 70 U/L (30-110); Anion Gap 7 mmol/L; Blood Urea Nitrogen 4 mg/dL (9-20); Carbon Dioxide 24 mmol/L (22-30); Chloride 102 mmol/L (98-107); Glucose 87 mg/dL (74-99); Lipase 324 U/L (23-300); Non-African American GFR(CKD) >90 (>60 ml/min/1.73 sqM); Potassium 3.8 mmol/L (3.5-5.1); Sodium 133 mmol/L (137-145); Total Bilirubin 5.6 mg/dL (0.2-1.3); Total Protein 7.6 g/dL (6.3-8.2)
--- NOTE | 2020-04-11 00:02 | ED ---
Abdominal Pain HPI - General Chief Complaint: Abdominal Pain Stated Complaint: Abdominal Pain Time Seen by Provider: 04/10/20 23:10 Source: patient Mode of arrival: ambulatory Limitations: no limitations - History of Present Illness Initial Comments: 39 year-old male patient with past history of heavy alcohol abuse presents today for evaluation of abdominal distention, discomfort, and lower extremity swelling. Patient states that he was admitted to the hospital in January for jaundice and related issues. State that he has not yet followed up with GI specialist. States that over the last week his abdomen and legs have gotten significantly more swollen. States that the swelling is making it difficult to expand his lungs. He denies any nausea or vomiting. Denies constipation or diarrhea. No difficulty with urination. States he did have 2 beers today for the first time since he was here in january and he felt it made his symptoms worse. Patient denies any recent rash, fever, chills, cough, chest pain, back pain, numbness, tingling, dizziness, weakness, hematuria, dysuria, urinary urgency, urinary frequency, headache, visual changes, or any other complaints. - Related Data Previous Rx's Medication Instructions Recorded Furosemide [Lasix] 20 mg PO DAILY #30 tab 03/02/20 Pantoprazole [Protonix] 40 mg PO AC-BID #60 tablet. 03/02/20 lisinopriL [Zestril] 20 mg PO DAILY #30 tab 03/02/20 prednisoLONE ORAL 15MG/5ML GIACOMO 40 mg PO DAILY #350 ml 03/02/20 [Prelone] Allergies Allergy/AdvReac Type Severity Reaction Status Date / Time morphine AdvReac Hallucinati Verified 04/10/20 22:54 ons Review of Systems ROS Statement: Those systems with pertinent positive or pertinent negative responses have been documented in the HPI. ROS Other: All systems not noted in ROS Statement are negative. Past Medical History Past Medical History: Hypertension Additional Past Medical History / Comment(s): fatty liver disease, Alcohol abuse History of Any Multi-Drug Resistant Organisms: None Reported Past Surgical History: Orthopedic Surgery Additional Past Surgical History / Comment(s): rt hand, 2 lt shoulder, Past Anesthesia/Blood Transfusion Reactions: No Reported Reaction Past Psychological History: No Psychological Hx Reported Smoking Status: Never smoker Past Alcohol Use History: None Reported, Daily, Heavy Past Drug Use History: None Reported - Past Family History Mother Family Medical History: Hypertension Father Family Medical History: CVA/TIA General Exam Limitations: no limitations General appearance: alert, in no apparent distress, other (This is a well- developed, well-nourished adult male patient in no acute distress. Vital signs upon presentation are temperature 98.4F, pulse 123, respirations 18, blood pressure 163/101, pulse ox 98% on room air.) Eye exam: Present: normal appearance, PERRL, EOMI. Absent: scleral icterus, conjunctival injection, periorbital swelling ENT exam: Present: normal exam, normal oropharynx, mucous membranes moist Respiratory exam: Present: normal lung sounds bilaterally. Absent: respiratory distress, wheezes, rales, rhonchi, stridor Cardiovascular Exam: Present: regular rate, normal rhythm, normal heart sounds. Absent: systolic murmur, diastolic murmur, rubs, gallop, clicks GI/Abdominal exam: Present: soft, distended, normal bowel sounds, other (Firm). Absent: tenderness, guarding, rebound, rigid Neurological exam: Present: alert, oriented X3, CN II-XII intact Psychiatric exam: Present: normal affect, normal mood Skin exam: Present: warm, dry, intact, other (Jaundice). Absent: rash Course Vital Signs 04/10/20 22:55 Temperature 98.4 F Pulse Rate 123 H Respiratory 18 Rate Blood Pressure 163/101 O2 Sat by Pulse 98 Oximetry Medical Decision Making - Medical Decision Making 39-year-old male patient presents to the emergency department today for evaluation of abdominal distention and swelling as well as lower extremity edema. Physical examination did reveal a significantly distended abdomen and 3- 4+ pitting edema to the lower extremities. Patient does have a history of a lcohol abuse and was recently admitted with jaundice. He still exhibited some scleral icterus. Labs reviewed and did reveal hemoglobin at 12.6, INR 1.8, bilirubin 5.6, AST 230. I did discuss findings and results with the patient. He'll be admitted to the hospital for further evaluation by GI for possible paracentesis. Patient is agreeable this plan. Case discussed with my attending Dr. Lugo. - Lab Data Result diagrams: 04/10/20 23:29 04/10/20 23:29 Lab Results 02/10/21 02/10/21 02/10/21 Range/Units 23:29 23:29 23:29 WBC 10.3 (3.8-10.6) k/uL RBC 3.82 L (4.30-5.90) m/uL Hgb 12.6 L (13.0-17.5) gm/dL Hct 37.4 L (39.0-53.0) % MCV 98.0 D (80.0-100.0) fL MCH 33.0 (25.0-35.0) pg MCHC 33.7 (31.0-37.0) g/dL RDW 15.6 H (11.5-15.5) % Plt Count 109 L (150-450) k/uL MPV 7.8 Neutrophils % 61 % Lymphocytes % 25 % Monocytes % 9 % Eosinophils % 3 % Basophils % 1 % Neutrophils # 6.3 (1.3-7.7) k/uL Lymphocytes # 2.5 (1.0-4.8) k/uL Monocytes # 0.9 (0-1.0) k/uL Eosinophils # 0.3 (0-0.7) k/uL Basophils # 0.1 (0-0.2) k/uL PT 17.4 H (9.0-12.0) sec INR 1.8 H (<1.2) APTT 30.3 H (22.0-30.0) sec Sodium 133 L (137-145) mmol/L Potassium 3.8 (3.5-5.1) mmol/L Chloride 102 (98-107) mmol/L Carbon Dioxide 24 (22-30) mmol/L Anion Gap 7 mmol/L BUN 4 L (9-20) mg/dL Creatinine 0.53 L (0.66-1.25) mg/dL Est GFR (CKD-EPI)AfAm >90 (>60 ml/min/1.73 sqM) Est GFR (CKD-EPI)NonAf >90 (>60 ml/min/1.73 sqM) Glucose 87 (74-99) mg/dL Calcium 8.0 L (8.4-10.2) mg/dL Total Bilirubin 5.6 H (0.2-1.3) mg/dL AST 230 H (17-59) U/L ALT 44 (4-49) U/L Alkaline Phosphatase 122 (38-126) U/L Ammonia (<30) umol/L Total Protein 7.6 (6.3-8.2) g/dL Albumin 2.7 L (3.5-5.0) g/dL Amylase 70 (30-110) U/L Lipase 324 H (23-300) U/L 04/10/20 Range/Units 23:29 WBC (3.8-10.6) k/uL RBC (4.30-5.90) m/uL Hgb (13.0-17.5) gm/dL Hct (39.0-53.0) % MCV (80.0-100.0) fL MCH (25.0-35.0) pg MCHC (31.0-37.0) g/dL RDW (11.5-15.5) % Plt Count (150-450) k/uL MPV Neutrophils % % Lymphocytes % % Monocytes % % Eosinophils % % Basophils % % Neutrophils # (1.3-7.7) k/uL Lymphocytes # (1.0-4.8) k/uL Monocytes # (0-1.0) k/uL Eosinophils # (0-0.7) k/uL Basophils # (0-0.2) k/uL PT (9.0-12.0) sec INR (<1.2) APTT (22.0-30.0) sec Sodium (137-145) mmol/L Potassium (3.5-5.1) mmol/L Chloride (98-107) mmol/L Carbon Dioxide (22-30) mmol/L Anion Gap mmol/L BUN (9-20) mg/dL Creatinine (0.66-1.25) mg/dL Est GFR (CKD-EPI)AfAm (>60 ml/min/1.73 sqM) Est GFR (CKD-EPI)NonAf (>60 ml/min/1.73 sqM) Glucose (74-99) mg/dL Calcium (8.4-10.2) mg/dL Total Bilirubin (0.2-1.3) mg/dL AST (17-59) U/L ALT (4-49) U/L Alkaline Phosphatase (38-126) U/L Ammonia 49 H (<30) umol/L Total Protein (6.3-8.2) g/dL Albumin (3.5-5.0) g/dL Amylase (30-110) U/L Lipase (23-300) U/L Disposition Clinical Impression: Ascites, Lower extremity edema, Liver failure Disposition: ADMITTED IP TO THIS [facility] Condition: Serious Referrals: Carlos Enrique Crowder MD [Primary Care Provider] - 1-2 days Decision to Admit Reason: Admit from EC Decision Date: 04/11/20 Decision Time: 01:01
[2020-04-11 00:23] LABS: INR 1.8 (<1.2); Partial Thromboplastin Time 30.3 sec (22.0-30.0); Prothrombin Time 17.4 sec (9.0-12.0)
[2020-04-11] MEDS ORDERED: NALOXONE 0.4 MG/ML 1 ML VIAL IV PRN (01:01)
[2020-04-11] MEDS ORDERED: ONDANSETRON 4 MG/2 ML VIAL IVP PRN (01:01)
[2020-04-11] MEDS ORDERED: PANTOPRAZOLE 40 MG TABLET PO SCH (09:15)
[2020-04-11] MEDS ORDERED: NON FORMULARY DRUG (Amlodipine Besylate/Benazepril [Amlodipine Besylate/Benazepril 10-40 M PO SCH (09:15)
[2020-04-11] MEDS ORDERED: FUROSEMIDE 20 MG TAB PO SCH (09:15)
[2020-04-11] MEDS: PANTOPRAZOLE 40 MG TABLET PO SCH ×2 (09:26→17:49)
[2020-04-11] MEDS: lisinopriL 20 MG TAB PO SCH (09:26)
[2020-04-11 10:54] LABS: ALT 43 U/L (4-49); AST 235 U/L (17-59); African American GFR (CKD) >90 (>60 ml/min/1.73 sqM); Albumin 2.5 g/dL (3.5-5.0); Albumin/Globulin Ratio 0.6; Alkaline Phosphatase 115 U/L (38-126); Anion Gap 7 mmol/L; Blood Urea Nitrogen 4 mg/dL (9-20); Calcium 7.9 mg/dL (8.4-10.2); Carbon Dioxide 26 mmol/L (22-30); Chloride 101 mmol/L (98-107); Globulin 4.5 g/dL; Glucose 75 mg/dL (74-99); Lipase 252 U/L (23-300); Non-African American GFR(CKD) >90 (>60 ml/min/1.73 sqM); Potassium 3.8 mmol/L (3.5-5.1); Sodium 134 mmol/L (137-145); Total Bilirubin 6.3 mg/dL (0.2-1.3)
[2020-04-11 10:56] LABS: Anisocytosis Slight; HCT 35.5 % (39.0-53.0); HGB 11.4 gm/dL (13.0-17.5); MCHC 32.1 g/dL (31.0-37.0); MCV 99.6 fL (80.0-100.0); Macrocytosis Slight; Mean Platelet Volume 7.8; Platelet Count 111 k/uL (150-450); RBC 3.57 m/uL (4.30-5.90); WBC 7.8 k/uL (3.8-10.6)
[2020-04-11 11:11] LABS: INR 1.9 (<1.2); Prothrombin Time 18.4 sec (9.0-12.0)
[2020-04-11 12:54] LABS: Amorphous Sediment,Urine Rare /hpf; Appearance,Urine Cloudy (Clear); Bacteria,Urine Rare /hpf; Bilirubin,Urine 1+ (Negative); Blood,Urine Negative (Negative); Color,Urine Light Brown; Glucose,Urine (UA) Negative (Negative); Ketones,Urine Negative (Negative); Leukocyte Esterase,Urine Trace (Negative); Mucus,Urine Moderate /hpf; Nitrite,Urine Negative (Negative); PH, Urine 5.5 (5.0-8.0); Protein,Urine Negative (Negative); RBC,Urine 1 /hpf (0-5); Specific Gravity,Urine 1.016 (1.001-1.035); Squamous Epithelial Cell,Urine <1 /hpf (0-4); WBC,Urine 4 /hpf (0-5)
[2020-04-11] MEDS ORDERED: SPIRONOLACTONE 25 MG TAB PO SCH (13:15)
[2020-04-11] MEDS ORDERED: PHYTONADIONE ORAL 5 MG/5 ML ORAL.SYRG PO SCH (15:00)
--- NOTE | 2020-04-11 16:43 | US ---
EXAMINATION TYPE: US paracentesis abd w/image DATE OF EXAM: 04/11/2020 COMPARISON: NONE HISTORY: Ascites. PROCEDURE: Maximal barrier technique was utilized. The skin overlying a suitable pocket of fluid was localized with ultrasound and the overlying skin was prepped and draped. Ultrasound was utilized with sterile technique. Lidocaine was used for local anesthesia and a skin obey made with a scalpel. Catheter was advanced under direct ultrasound guidance into a suitable pocket of fluid and approximately 9.3 liter s of serous fluid were removed. Catheter was withdrawn and hemostasis achieved. There is no immedia te complication; the patient is discharged in stable condition. IMPRESSION: STATUS POST ULTRASOUND GUIDED PARACENTESIS FOR PALLIATION OF ASCITES. THIS PROCEDURE WA S PERFORMED BY THE UNDERSIGNED. Specimen sent for laboratory analysis.
[2020-04-11] MEDS: SPIRONOLACTONE 25 MG TAB PO SCH (17:49)
[2020-04-11 19:00] LABS: Appearance,BF Hazy; Color,BF Yellow; Nucleated Cells, Body Fluid 29 /uL
[2020-04-11 19:01] LABS: RBC, Body Fluid 297 /uL
[2020-04-11 19:08] LABS: Mononuclear WBC,Body Fluid 53 %; Polynuclear WBC,Body Fluid 47 %; Total Cells Counted,Body Fluid 100
[2020-04-11 20:44] LABS: Hepatitis A Antibody IgM Non-Reactive (Non-Reactive); Hepatitis B Core IgM Non-Reactive (Non-Reactive); Hepatitis B Surface Antigen Non-Reactive (Non-Reactive)
[2020-04-11 20:45] LABS: Hepatitis C IgG Antibody Non-Reactive (Non-Reactive)
--- NOTE | 2020-04-11 21:57 | P.HPIM ---
History of Present Illness H&P Date: 04/11/20 Chief Complaint: Distended abdomen History of presenting complaint: This is a 39-year-old patient of Dr. Crowder. Patient has been drinking alcohol for several years. Patient was here in January 2020. EGD at that time showed moderate portal hypertensive gastropathy. Computed tomography scan of the abdomen that time showed ascites marked fatty infiltration of the liver. Markedly enlarged gallbladder. Patient states it lasted was March 26. Patient now presents with increasingly distended abdomen. Lower extremity edema. Some shortness of breath. Denies any fever and chills. Saw the patient noted today. Intervention radiologist was consulted. Review of systems: GEN.: Tired EYES: None HEENT: None NECK: None RESPIRATORY: Some shortness of breath CARDIOVASCULAR: None GASTROINTESTINAL: As above GENITOURINARY: None MUSCULOSKELETAL: None LYMPHATICS: None HEMATOLOGICAL: None PSYCHIATRY: None NEUROLOGICAL: None Past medical history to include: Chronic alcoholic liver disease, GI bleed from portal gastropathy, thrombocytopenia, alcohol-induced neuropathy, hypertension Social history: Drinking alcohol for many years. Lives with his friend. No smoking. Physical examination: VITAL SIGNS: 98.4, 123, 18, 163/101, 98% room air GENERAL: BMI 35.1, laying in bed slightly uncomfortable. EYES: Pupils equal. Conjunctiva icterusl. HEENT: External appearance of nose and ears normal, oral cavity grossly normal. NECK: JVD not raised; masses not palpable. HEART: First and second heart sounds are normal; cross edema. LUNGS: Respiratory rate increased; clear to auscultation. ABDOMEN: Soft, grossly distended, dull percussion minimally tender, liver spleen not palpable, no masses palpable. PSYCH: Alert and oriented x3; mood and affect normal. NEUROLOGICAL: Cranial nerves grossly intact; no facial asymmetry, power and sensation grossly intact. LYMPHATICS: No lymph nodes palpable in the axilla and neck INVESTIGATIONS, reviewed in the clinical context: White count 7.8 hemoglobin 9.4 platelets 111 pro-time 18.4 sodium 134 potassium 3.8 bun 4 creatinine 0.50 Total bilirubin 6.3 AST 235 ALT 43 albumin 2.5 Coronavirus in [PCR]-not detected Acute hepatitis panel for A, B, and C-nonreactive Assessment and plan: -Acute on chronic severe ascites symptomatic, will need to have therapeutic paracentesis today. Start patient on Aldactone continue with Lasix. GI was consulted. Fluid restriction. low-salt diet -Alcoholic liver disease. Patient counseled. Add multivitamin -Portal hypertension-will start the patient on beta unique -Alcohol use disorder -Severe hypoalbuminemia from liver disease -Prolonged pro time from liver disease. Supplemental vitamin K for now -Portal gastropathy -Hyperbilirubinemia Care was discussed with the patient. Questions answered. Past Medical History Past Medical History: Hypertension Additional Past Medical History / Comment(s): fatty liver disease, Alcohol abuse History of Any Multi-Drug Resistant Organisms: None Reported Past Surgical History: Orthopedic Surgery Additional Past Surgical History / Comment(s): rt hand, 2 lt shoulder, Past Anesthesia/Blood Transfusion Reactions: No Reported Reaction Past Psychological History: No Psychological Hx Reported Smoking Status: Never smoker Past Alcohol Use History: None Reported, Daily, Heavy Past Drug Use History: None Reported - Past Family History Mother Family Medical History: Hypertension Father Family Medical History: CVA/TIA Medications and Allergies Home Medications Medication Instructions Recorded Confirmed Type Furosemide [Lasix] 20 mg PO DAILY 04/11/20 04/11/20 History Ibuprofen [Motrin Ib] 600 mg PO Q8H PRN 04/11/20 04/11/20 History Pantoprazole Sodium [Protonix] 40 mg PO AC-BID 04/11/20 04/11/20 History lisinopriL 20 mg PO DAILY 04/11/20 04/11/20 History Allergies Allergy/AdvReac Type Severity Reaction Status Date / Time morphine AdvReac Hallucinati Verified 04/11/20 06:36 ons Physical Exam Vitals: Vital Signs Temp Pulse Pulse Pulse Resp BP BP 04/11/20 10:16 96 16 149/79 04/11/20 08:00 98.2 F 100 97 16 164/102 04/11/20 06:42 98 20 144/105 04/11/20 03:51 138/70 04/11/20 01:12 110 H 18 157/110 04/10/20 22:55 98.4 F 123 H 18 163/101 Pulse Ox 04/11/20 10:16 95 04/11/20 08:00 100 04/11/20 06:42 96 04/11/20 03:51 04/11/20 01:12 95 04/10/20 22:55 98 Intake and Output 04/10/20 04/11/20 04/11/20 22:59 06:59 14:59 Other: Weight 117.39 kg 117.39 kg Results CBC & Chem 7: 04/11/20 09:37 04/11/20 09:37 Labs: Abnormal Lab Results - Last 24 Hours (Table) 04/10/20 04/10/20 04/10/20 Range/Units 23:29 23:29 23:29 RBC 3.82 L (4.30-5.90) m/uL Hgb 12.6 L (13.0-17.5) gm/dL Hct 37.4 L (39.0-53.0) % RDW 15.6 H (11.5-15.5) % Plt Count 109 L (150-450) k/uL PT 17.4 H (9.0-12.0) sec INR 1.8 H (<1.2) APTT 30.3 H (22.0-30.0) sec Sodium 133 L (137-145) mmol/L BUN 4 L (9-20) mg/dL Creatinine 0.53 L (0.66-1.25) mg/dL Calcium 8.0 L (8.4-10.2) mg/dL Total Bilirubin 5.6 H (0.2-1.3) mg/dL AST 230 H (17-59) U/L Ammonia (<30) umol/L Albumin 2.7 L (3.5-5.0) g/dL Lipase 324 H (23-300) U/L 04/10/20 Range/Units 23:29 RBC (4.30-5.90) m/uL Hgb (13.0-17.5) gm/dL Hct (39.0-53.0) % RDW (11.5-15.5) % Plt Count (150-450) k/uL PT (9.0-12.0) sec INR (<1.2) APTT (22.0-30.0) sec Sodium (137-145) mmol/L BUN (9-20) mg/dL Creatinine (0.66-1.25) mg/dL Calcium (8.4-10.2) mg/dL Total Bilirubin (0.2-1.3) mg/dL AST (17-59) U/L Ammonia 49 H (<30) umol/L Albumin (3.5-5.0) g/dL Lipase (23-300) U/L Thrombosis Risk Factor Assmnt - Choose All That Apply Each Factor Represents 1 point: Swollen legs (current) Other congenital or acquired thrombophilia - If yes, enter type in comment: No Thrombosis Risk Factor Assessment Total Risk Factor Score: 1 Thrombosis Risk Factor Assessment Level: Low Risk
[2020-04-11] MEDS: PROPRANOLOL 20 MG TAB PO SCH (22:25)
[2020-04-12 04:34] LABS: Albumin, Fluid Source Ascites
[2020-04-12] MEDS: PANTOPRAZOLE 40 MG TABLET PO SCH (07:16)
[2020-04-12] MEDS: SPIRONOLACTONE 25 MG TAB PO SCH (07:16)
[2020-04-12] MEDS: lisinopriL 20 MG TAB PO SCH (07:16)
[2020-04-12] MEDS: PROPRANOLOL 20 MG TAB PO SCH (07:17)
[2020-04-12 07:21] VITALS: BP 143/77; PULSE 83; RESP 18; TEMP 98
[2020-04-12] MEDS ORDERED: FUROSEMIDE 40 MG TAB PO SCH (09:00)
--- NOTE | 2020-04-12 13:57 | P.CONS ---
History of Present Illness - Reason for Consult Consult date: 04/11/20 Decompensated liver cirrhosis Requesting physician: Kulwant Hasy - Chief Complaint Abdominal distension - History of Present Illness 39-year-old male with a medical history significant for alcoholic liver disease and alcohol abuse who presented to the hospital with complaints of increasing abdominal distention. The patient was previously seen in the hospital in January 2020 when he was treated for acute alcoholic hepatitis and concern for GI bleed with the patient reporting vomiting blood. At that time the patient underwent EGD on 02/29/2020 with findings of moderate portal hypertensive gastropathy with no varices seen at that time. On questioning the patient reports abstinence from alcohol since his discharge. He reports increasing swelling over his lower extremities during the past 2 weeks and abdomen over the past 1 week. He presented to the hospital for further evaluation. He denies any nausea, vomiting, change in bowel habits or signs or symptoms of GI bleeding. Laboratory evaluation on presentation significant for WBC 10.3, hemoglobin 12.6, platelet count 129,000 with total bilirubin 5.6, alkaline phosphatase 122, AST 230 and ALT 44 with a lipase of 324 and an INR of 1.8. Patient has been initiated on Lasix therapy. No prior paracentesis. He is scheduled for ultrasound paracentesis with fluid studies which are pending. Review of Systems REVIEW OF SYSTEMS: CONSTITUTIONAL: Denies any fevers, chills, or fatigue, but does report weight gain secondary to fluid overload. CARDIOVASCULAR: Denies any chest pain, palpitations high or low blood pressures RESPIRATORY: Denies any shortness of breath, hemoptysis or cough. GENITOURINARY: No dysuria or hematuria. MUSCULOSKELETAL: No weakness reported. SKIN: Denies any new rashes or lesions, jaundice or pallor. PSYCHIATRIC: Denies any depression or anxiety, alcohol abuse. NEUROLOGY: Denies headache, denies any new focal deficits. EARS/NOSE/THROAT: No recent hearing change, congestion, nasal discharge or sore throat. EYES: No pain in eyes, discharge or change in vision. GASTROINTESTINAL: As per HPI. Past Medical History Past Medical History: Hypertension Additional Past Medical History / Comment(s): fatty liver disease, Alcohol abuse History of Any Multi-Drug Resistant Organisms: None Reported Past Surgical History: Orthopedic Surgery Additional Past Surgical History / Comment(s): rt hand, 2 lt shoulder, Past Anesthesia/Blood Transfusion Reactions: No Reported Reaction Past Psychological History: No Psychological Hx Reported Smoking Status: Never smoker Past Alcohol Use History: None Reported, Daily, Heavy Past Drug Use History: None Reported - Past Family History Mother Family Medical History: Hypertension Father Family Medical History: CVA/TIA Medications and Allergies Home Medications Medication Instructions Recorded Confirmed Type Pantoprazole Sodium [Protonix] 40 mg PO AC-BID 04/11/20 04/11/20 History Furosemide [Lasix] 40 mg PO DAILY #30 tab 04/12/20 Rx Metoprolol Tartrate [Lopressor] 50 mg PO BID #60 tab 04/12/20 Rx Spironolactone [Aldactone] 100 mg PO DAILY #30 tab 04/12/20 Rx Allergies Allergy/AdvReac Type Severity Reaction Status Date / Time morphine AdvReac Hallucinati Verified 04/11/20 06:36 ons Physical Exam Vitals: Vital Signs Temp Pulse Pulse Pulse Resp BP BP 04/11/20 10:16 96 16 149/79 04/11/20 08:00 98.2 F 100 97 16 164/102 04/11/20 06:42 98 20 144/105 04/11/20 03:51 138/70 04/11/20 01:12 110 H 18 157/110 04/10/20 22:55 98.4 F 123 H 18 163/101 Pulse Ox 04/11/20 10:16 95 04/11/20 08:00 100 04/11/20 06:42 96 04/11/20 03:51 04/11/20 01:12 95 04/10/20 22:55 98 Intake and Output 04/10/20 04/11/20 04/11/20 22:59 06:59 14:59 Other: Weight 117.39 kg 117.39 kg On physical examination, patient appears comfortable in no apparent distress. HEAD: Normocephalic, atraumatic. EYES: Scleral icterus. No conjunctival injection. MOUTH: No lesions, tongue midline. NECK: Trachea midline, no gross abnormalities. CHEST: Decreased air entry in all lung elliott. HEART: S1-S2 appreciated. ABDOMEN: Soft, nontender to palpation, moderately distended. Bowel sounds are positive. No organomegaly. No guarding or rigidity. EXTREMITIES: Bilateral pedal edema. SKIN: No rashes, no jaundice. NEUROLOGIC: Alert and oriented x3. No focal deficits. Results CBC & Chem 7: 04/11/20 09:37 04/11/20 09:37 Labs: Abnormal Lab Results - Last 24 Hours (Table) 04/10/20 04/10/20 04/10/20 Range/Units 23:29 23:29 23:29 RBC 3.82 L (4.30-5.90) m/uL Hgb 12.6 L (13.0-17.5) gm/dL Hct 37.4 L (39.0-53.0) % RDW 15.6 H (11.5-15.5) % Plt Count 109 L (150-450) k/uL PT 17.4 H (9.0-12.0) sec INR 1.8 H (<1.2) APTT 30.3 H (22.0-30.0) sec Sodium 133 L (137-145) mmol/L BUN 4 L (9-20) mg/dL Creatinine 0.53 L (0.66-1.25) mg/dL Calcium 8.0 L (8.4-10.2) mg/dL Total Bilirubin 5.6 H (0.2-1.3) mg/dL AST 230 H (17-59) U/L Ammonia (<30) umol/L Albumin 2.7 L (3.5-5.0) g/dL Lipase 324 H (23-300) U/L 04/10/20 04/11/20 04/11/20 Range/Units 23:29 09:37 09:37 RBC 3.57 L (4.30-5.90) m/uL Hgb 11.4 L (13.0-17.5) gm/dL Hct 35.5 L (39.0-53.0) % RDW 16.0 H (11.5-15.5) % Plt Count 111 L (150-450) k/uL PT 18.4 H (9.0-12.0) sec INR 1.9 H (<1.2) APTT (22.0-30.0) sec Sodium (137-145) mmol/L BUN (9-20) mg/dL Creatinine (0.66-1.25) mg/dL Calcium (8.4-10.2) mg/dL Total Bilirubin (0.2-1.3) mg/dL AST (17-59) U/L Ammonia 49 H (<30) umol/L Albumin (3.5-5.0) g/dL Lipase (23-300) U/L 04/11/20 Range/Units 09:37 RBC (4.30-5.90) m/uL Hgb (13.0-17.5) gm/dL Hct (39.0-53.0) % RDW (11.5-15.5) % Plt Count (150-450) k/uL PT (9.0-12.0) sec INR (<1.2) APTT (22.0-30.0) sec Sodium 134 L (137-145) mmol/L BUN 4 L (9-20) mg/dL Creatinine 0.50 L (0.66-1.25) mg/dL Calcium 7.9 L (8.4-10.2) mg/dL Total Bilirubin 6.3 H (0.2-1.3) mg/dL AST 235 H (17-59) U/L Ammonia (<30) umol/L Albumin 2.5 L (3.5-5.0) g/dL Lipase (23-300) U/L US - abdomen: report reviewed Assessment and Plan (1) Decompensated hepatic cirrhosis Narrative/Plan: 39-year-old male with medical history significant for alcohol abuse which he currently reports a variety over the past few months, alcoholic hepatitis and alcoholic liver disease with prior EGD showing portal hypertensive gastropathy w ho presented to the hospital due to increasing fluid overload with complaints of lower extremity edema and abdominal distention. No prior paracentesis reported. Likely related to underlying liver disease. Status: Acute Code(s): K72.90 - HEPATIC FAILURE, UNSPECIFIED WITHOUT COMA; K74.60 - UNSPECIFIED CIRRHOSIS OF LIVER SNOMED Code(s): 435741726 (2) Ascites Status: Acute Code(s): R18.8 - OTHER ASCITES SNOMED Code(s): 396022600 (3) Elevated liver enzymes Status: Acute Code(s): R74.8 - ABNORMAL LEVELS OF OTHER SERUM ENZYMES SNOMED Code(s): 210666589 Plan: Supportive care Extensive discussion regarding sodium restricted diet with the patient Lasix 20 mg daily initiated and will add Aldactone 25 mg daily Patient will need close follow-up with GI in the outpatient setting for cont inued monitoring of labs including electrolytes and creatinine and further titration of his diuretic medications Paracentesis with fluid studies pending Alcohol abstinence Thank you for allowing us to participate in the care of the patient we will continue to follow
--- NOTE | 2020-04-12 16:23 | P.PN ---
Subjective Progress Note Date: 04/12/20 Principal diagnosis: New Onset ascites This is a 39-year-old male patient with a significant history of heavy alcohol abuse. Patient was recently admitted for GI bleed and had an upper endoscopy that showed portal hypertensive gastropathy. This admission he came in with complaints of abdominal distention and lower leg edema with jaundice. He admits that he has been drinking anywhere from 8-15 beers a day for the last 20 days. Yesterday the patient underwent a paracentesis with fluid studies. He states he is feeling much better today, denies any abdominal pain, nausea or vomiting. Objective - Vital Signs Vital signs: Vital Signs Temp 98.0 F 04/12/20 07:21 Pulse 83 04/12/20 07:21 Resp 18 04/12/20 07:21 BP 143/77 04/12/20 07:21 Pulse Ox 96 04/12/20 07:21 Intake & Output 04/11/20 04/12/20 04/12/20 18:59 06:59 18:59 Intake Total 755 519 Balance 755 519 Weight 106.3 kg Intake: Oral 755 519 Other: Voiding Method Toilet # Voids 1 4 - Exam General appearance: The patient is alert, oriented, appears in no acute distress. HET: Head is normocephalic and atraumatic. Conjunctiva pink. Sclera icteric. Neck: Supple without lymphadenopathy. Abdomen: Soft, nontender, mildly distended with bowel sounds. No guarding or rigidity. Extremities: Normal skin color and turgor. Bilateral lower extremity edema Skin: No rashes, jaundice Neurological: No focal deficits. Alert and oriented 3. - Labs CBC & Chem 7: 04/11/20 09:37 04/11/20 09:37 Labs: Abnormal Lab Results - Last 24 Hours (Table) 04/11/20 04/11/20 04/11/20 Range/Units 09:37 09:37 09:37 RBC 3.57 L (4.30-5.90) m/uL Hgb 11.4 L (13.0-17.5) gm/dL Hct 35.5 L (39.0-53.0) % RDW 16.0 H (11.5-15.5) % Plt Count 111 L (150-450) k/uL PT 18.4 H (9.0-12.0) sec INR 1.9 H (<1.2) Sodium 134 L (137-145) mmol/L BUN 4 L (9-20) mg/dL Creatinine 0.50 L (0.66-1.25) mg/dL Calcium 7.9 L (8.4-10.2) mg/dL Total Bilirubin 6.3 H (0.2-1.3) mg/dL AST 235 H (17-59) U/L Albumin 2.5 L (3.5-5.0) g/dL Urine Bilirubin (Negative) Ur Leukocyte Esterase (Negative) Amorphous Sediment (None) /hpf Urine Bacteria (None) /hpf Urine Mucus (None) /hpf 04/11/20 Range/Units 12:30 RBC (4.30-5.90) m/uL Hgb (13.0-17.5) gm/dL Hct (39.0-53.0) % RDW (11.5-15.5) % Plt Count (150-450) k/uL PT (9.0-12.0) sec INR (<1.2) Sodium (137-145) mmol/L BUN (9-20) mg/dL Creatinine (0.66-1.25) mg/dL Calcium (8.4-10.2) mg/dL Total Bilirubin (0.2-1.3) mg/dL AST (17-59) U/L Albumin (3.5-5.0) g/dL Urine Bilirubin 1+ H (Negative) Ur Leukocyte Esterase Trace H (Negative) Amorphous Sediment Rare H (None) /hpf Urine Bacteria Rare H (None) /hpf Urine Mucus Moderate H (None) /hpf Microbiology - Last 24 Hours (Table) 04/11/20 15:30 Gram Stain - Preliminary Paracentesis Fluid Body Fluid Culture - Preliminary 04/11/20 15:30 Anaerobic Culture - Preliminary Ascites Fluid Assessment and Plan (1) Decompensated hepatic cirrhosis Narrative/Plan: 31-year-old male with medical history significant of alcohol abuse which he reported sobriety over the last month 1-2 months, alcohol hepatitis and alcoholic liver disease with prior EGD showing portal hypertensive gastropathy who presented to the hospital due to increasing fluid overload with complaints of lower extremity edema and abdominal distention. He states he's never had a paracentesis in the past and this is likely related to underlying liver disease. Patient today reports he has actually been drinking anywhere from 6-15 beers daily for the last 20 days. He is status post paracentesis with endplate liters of fluid removal. Fluid studies ordered. Status: Acute Code(s): K72.90 - HEPATIC FAILURE, UNSPECIFIED WITHOUT COMA; K74.60 - UNSPECIFIED CIRRHOSIS OF LIVER SNOMED Code(s): 782308778 (2) Ascites Status: Acute Code(s): R18.8 - OTHER ASCITES SNOMED Code(s): 012071741 (3) Elevated liver enzymes Status: Acute Code(s): R74.8 - ABNORMAL LEVELS OF OTHER SERUM ENZYMES SNOMED Code(s): 041029207 Plan: 1. Supportive care 2. Low sodium diet 3. Patient is status post paracentesis with fluid studies 4. Lasix 40 mg daily Aldactone increased to 100 mg daily by primary team 5. Agree patient may be discharged home with close follow-up by gastroenterology 6. Alcohol abstinence Thank you for this consultation Dr. Jass Dawn I agree with the dictator's note, documented as a scribe by [place].
--- NOTE | 2020-04-12 22:05 | P.DS ---
Providers Date of admission: 04/11/20 00:52 Expected date of discharge: 04/12/20 Attending physician: Kulwant Hays Consults: 04/11/20 01:02 Consult Physician Routine Consulting Provider: Luisito Cook Consult Reason/Comments: Ascites; Liver failure Do you want consulting provider notified?: Yes Primary care physician: Carlos Enrique Crowder [facility] Course: Chief Complaint: Distended abdomen History of presenting complaint: This is a 39-year-old patient of Dr. Crowder. Patient has been drinking alcohol for several years. Patient was here in January 2020. EGD at that time showed moderate portal hypertensive gastropathy. Computed tomography scan of the abdomen that time showed ascites marked fatty infiltration of the liver. Markedly enlarged gallbladder. Patient states it lasted was March 26. Patient now presents with increasingly distended abdomen. Lower extremity edema. Some shortness of breath. Denies any fever and chills. . Interventional radiologist-9.3 L of serous fluid was removed. Today-patient feeling better. Edema gone down. Breathing is better. Had a very lengthy talk to patient about lifestyle changes. Including fluid restriction and low-salt diet abstaining from alcohol and other lifestyle changes. Discussed with GI okay to discharge. Patient will follow-up with GI Discussion and discharge planning more than 35 minutes [employer]: Dr. Wilson from GI Past medical history to include: Chronic alcoholic liver disease, GI bleed from portal gastropathy, thrombocytopenia, alcohol-induced neuropathy, hypertension Social history: Drinking alcohol for many years. Lives with his friend. No smoking. Physical examination: VITAL SIGNS: 98, 83, 18, 143 with 77, 96% room air GENERAL: Laying in bed, more comfortable today. EYES: Pupils equal. Conjunctiva icterus. HEENT: External appearance of nose and ears normal, oral cavity grossly normal. NECK: JVD not raised; masses not palpable. HEART: First and second heart sounds are normal; decreased edema. LUNGS: Respiratory rate increased; clear to auscultation. ABDOMEN: Soft, less distended, dull percussion minimally tender, liver spleen not palpable, no masses palpable. PSYCH: Alert and oriented x3; mood and affect normal. INVESTIGATIONS, reviewed in the clinical context: White count 7.8 hemoglobin 9.4 platelets 111 pro-time 18.4 sodium 134 potassium 3.8 bun 4 creatinine 0.50 Total bilirubin 6.3 AST 235 ALT 43 albumin 2.5 Coronavirus in [PCR]-not detected Acute hepatitis panel for A, B, and C-nonreactive Assessment and plan: -Acute on chronic severe ascites symptomatic, therapeutic paracentesis on 9.3 L was done. -Alcoholic liver disease. Patient counseled. Add multivitamin -Portal started on beta unique -Alcohol use disorder -Severe hypoalbuminemia from liver disease -Prolonged pro time from liver disease. Supplemental vitamin K -Portal gastropathy -Hyperbilirubinemia -Essential hypertension Disposition: Home Labs: CBC BMP-1 week 1800 mL daily fluid restriction Low-salt diet Daily weights Plan - Discharge Summary Discharge Rx Participant: No New Discharge Prescriptions: New Spironolactone [Aldactone] 100 mg PO DAILY #30 tab Furosemide [Lasix] 40 mg PO DAILY #30 tab Metoprolol Tartrate [Lopressor] 50 mg PO BID #60 tab Continue Pantoprazole Sodium [Protonix] 40 mg PO AC-BID Discontinued Ibuprofen [Motrin Ib] 600 mg PO Q8H PRN PRN Reason: Pain Or Fever > 100.5 lisinopriL 20 mg PO DAILY Furosemide [Lasix] 20 mg PO DAILY Discharge Medication List Pantoprazole Sodium [Protonix] 40 mg PO AC-BID 04/11/20 [History] Furosemide [Lasix] 40 mg PO DAILY #30 tab 04/12/20 [Rx] Metoprolol Tartrate [Lopressor] 50 mg PO BID #60 tab 04/12/20 [Rx] Spironolactone [Aldactone] 100 mg PO DAILY #30 tab 04/12/20 [Rx] Follow up Appointment(s)/Referral(s): Carlos Enrique Crowder MD [Primary Care Provider] - 04/15/20 11:45 am Luisito Cook MD [STAFF PHYSICIAN] - 04/19/20 9:30 am (With Mari) Patient Instructions/Handouts: Ascites (DC) Activity/Diet/Wound Care/Special Instructions: low salt diet fluid restriction - 1800 cc/day Discharge Disposition: HOME SELF-CARE
== END 2020-04-12 12:49 | disposition home or self-care (01) | DRG 433 ==
LOC: EC 22:49 → 4SSUR 04-11 00:52
PROVIDERS: ADMIT Hospitalist; ATTEND Hospitalist
PROC: 0W9G3ZZ Drainage of Peritoneal Cavity, Percutaneous Approach (ICD-10-PCS; principal; 2020-04-11)
DX: K70.31 Alcoholic cirrhosis of liver with ascites (principal); K76.6 Portal hypertension; G62.1 Alcoholic polyneuropathy; E88.09 Other disorders of plasma-protein metabolism, not elsewhere classified; K70.11 Alcoholic hepatitis with ascites; K70.40 Alcoholic hepatic failure without coma; Z20.822 Contact with and (suspected) exposure to COVID-19; F10.10 Alcohol abuse, uncomplicated; I10 Essential (primary) hypertension; K82.8 Other specified diseases of gallbladder; K70.0 Alcoholic fatty liver; K31.89 Other diseases of stomach and duodenum; E87.70 Fluid overload, unspecified; Z79.899 Other long term (current) drug therapy; Z87.19 Personal history of other diseases of the digestive system; Z88.5 Allergy status to narcotic agent; Z82.49 Family history of ischemic heart disease and other diseases of the circulatory system; Z82.3 Family history of stroke
CPT/HCPCS: 36415; 49083; 80053; 80074; 81001; 82042; 82140; 82150; 83690; 84157; 85025; 85027; 85610; 85730; 87070; 87075; 87205; 87635; 89050; 99285

== ENCOUNTER 2020-05-07 03:03 | Inpatient (IN) | payer OTHER ==
--- NOTE | 2020-05-07 03:50 | ED ---
Recheck HPI - General Chief Complaint: Abdominal Pain Stated Complaint: Lump near groin, back pain Time Seen by Provider: 05/07/20 03:07 Source: patient, RN notes reviewed, old records reviewed Mode of arrival: ambulatory Limitations: no limitations - History of Present Illness Initial Comments: This is a 39-year-old male DF for evaluation. Patient has alcohol-induced liver failure. Patient states he is significantly slow the primary can't take a deep breath leg swollen dorsal with ascites. Patient does not have scheduled therapeutic paracentesis at this point. Otherwise patient has no other significant complaint MD Complaint: abnormal lab, other (Patient has liver failure with significant ascites) -: days(s) Returns Today for: persistent/worsening pain related to initial visit Symptoms Since Prior Visit: worsening pain Associated Symptoms: none Treatments Prior to Arrival: Given Pain Meds on, other (Patient does have prior paracentesis) - Related Data Home Medications Medication Instructions Recorded Confirmed Pantoprazole Sodium [Protonix] 40 mg PO AC-BID 04/11/20 05/12/20 Previous Rx's Medication Instructions Recorded Metoprolol Tartrate [Lopressor] 50 mg PO BID #60 tab 04/12/20 Spironolactone [Aldactone] 100 mg PO DAILY #30 tab 04/12/20 Magnesium 200 mg PO Q48H #30 tablet 05/07/20 Furosemide [Lasix] 40 mg PO BID #60 tab 05/14/20 Allergies Allergy/AdvReac Type Severity Reaction Status Date / Time morphine AdvReac Hallucinati Verified 05/12/20 07:10 ons Review of Systems ROS Statement: Those systems with pertinent positive or pertinent negative responses have been documented in the HPI. ROS Other: All systems not noted in ROS Statement are negative. Past Medical History Past Medical History: Hypertension, Liver Disease Additional Past Medical History / Comment(s): fatty liver disease, Alcohol abuse, cirrhosis, ascites History of Any Multi-Drug Resistant Organisms: None Reported Past Surgical History: Orthopedic Surgery Additional Past Surgical History / Comment(s): rt hand, 2 lt shoulder, large volume paracentesis Past Anesthesia/Blood Transfusion Reactions: No Reported Reaction Past Psychological History: No Psychological Hx Reported Smoking Status: Never smoker Past Alcohol Use History: None Reported, Daily, Heavy Past Drug Use History: None Reported - Past Family History Mother Family Medical History: Hypertension Father Family Medical History: CVA/TIA General Exam General appearance: alert, in no apparent distress Head exam: Present: atraumatic, normocephalic, normal inspection Eye exam: Present: normal appearance, PERRL, EOMI. Absent: scleral icterus, conjunctival injection, periorbital swelling ENT exam: Present: normal exam, mucous membranes moist Neck exam: Present: normal inspection. Absent: tenderness, meningismus, lymphadenopathy Respiratory exam: Present: normal lung sounds bilaterally. Absent: respiratory distress, wheezes, rales, rhonchi, stridor Cardiovascular Exam: Present: regular rate, normal rhythm, normal heart sounds. Absent: systolic murmur, diastolic murmur, rubs, gallop, clicks GI/Abdominal exam: Present: soft, tenderness (Significantly ascitic abdomen), normal bowel sounds. Absent: distended, guarding, rebound, rigid Extremities exam: Present: normal inspection, full ROM, normal capillary refill. Absent: tenderness, pedal edema, joint swelling, calf tenderness Back exam: Present: normal inspection Neurological exam: Present: alert, oriented X3, CN II-XII intact Psychiatric exam: Present: normal affect, normal mood Skin exam: Present: warm, dry, intact, normal color. Absent: rash Course Vital Signs 05/07/20 05/07/20 05/07/20 03:07 08:48 10:15 Temperature 98.4 F 97.9 F Pulse Rate 71 60 Pulse Rate [ 70 Pulse Oximetery ] Respiratory 18 18 16 Rate Blood Pressure 131/80 108/73 Blood Pressure 124/67 [Right Arm] O2 Sat by Pulse 100 100 98 Oximetry 05/07/20 05/07/20 05/07/20 10:25 10:50 13:48 Temperature Pulse Rate 68 Pulse Rate [ 70 69 Pulse Oximetery ] Respiratory 16 16 16 Rate Blood Pressure 107/60 Blood Pressure 121/70 122/67 [Right Arm] O2 Sat by Pulse 99 98 99 Oximetry - Reevaluation(s) Reevaluation #1: Medical record is reviewed Patient does have mild improvement here in the emergency department Patient informed of results questions answered - Consultations Consultation #1: spoke with [facility] were agrees to admit this patient Medical Decision Making - Medical Decision Making 39 male DF for evaluation patient is a significant ascites here in the emergency department causing pain and shortness of breath. Patient be admitted for therapeutic. Paracentesis - Lab Data Result diagrams: 05/07/20 03:58 05/07/20 03:58 Lab Results 05/07/20 05/07/20 05/07/20 Range/Units 03:58 03:58 03:58 WBC 11.3 H (3.8-10.6) k/uL RBC 3.64 L (4.30-5.90) m/uL Hgb 11.5 L (13.0-17.5) gm/dL Hct 34.9 L (39.0-53.0) % MCV 95.9 (80.0-100.0) fL MCH 31.5 (25.0-35.0) pg MCHC 32.9 (31.0-37.0) g/dL RDW 15.5 (11.5-15.5) % Plt Count 128 L (150-450) k/uL MPV 8.4 Neutrophils % 66 % Lymphocytes % 22 % Monocytes % 7 % Eosinophils % 2 % Basophils % 0 % Neutrophils # 7.5 (1.3-7.7) k/uL Lymphocytes # 2.5 (1.0-4.8) k/uL Monocytes # 0.8 (0-1.0) k/uL Eosinophils # 0.3 (0-0.7) k/uL Basophils # 0.1 (0-0.2) k/uL PT 17.8 H (9.0-12.0) sec INR 1.8 H (<1.2) APTT 28.5 (22.0-30.0) sec Sodium 131 L (137-145) mmol/L Potassium 4.2 (3.5-5.1) mmol/L Chloride 98 (98-107) mmol/L Carbon Dioxide 24 (22-30) mmol/L Anion Gap 9 mmol/L BUN 8 L (9-20) mg/dL Creatinine 0.67 (0.66-1.25) mg/dL Est GFR (CKD-EPI)AfAm >90 (>60 ml/min/1.73 sqM) Est GFR (CKD-EPI)NonAf >90 (>60 ml/min/1.73 sqM) Glucose 100 H (74-99) mg/dL Calcium 8.6 (8.4-10.2) mg/dL Total Bilirubin 4.1 H (0.2-1.3) mg/dL AST 81 H (17-59) U/L ALT 29 (4-49) U/L Alkaline Phosphatase 125 (38-126) U/L Ammonia (<30) umol/L Total Protein 7.6 (6.3-8.2) g/dL Albumin 2.7 L (3.5-5.0) g/dL Amylase 93 (30-110) U/L Lipase 376 H (23-300) U/L Coronavirus (PCR) (Not Detectd) 05/07/20 05/07/20 Range/Units 03:58 04:11 WBC (3.8-10.6) k/uL RBC (4.30-5.90) m/uL Hgb (13.0-17.5) gm/dL Hct (39.0-53.0) % MCV (80.0-100.0) fL MCH (25.0-35.0) pg MCHC (31.0-37.0) g/dL RDW (11.5-15.5) % Plt Count (150-450) k/uL MPV Neutrophils % % Lymphocytes % % Monocytes % % Eosinophils % % Basophils % % Neutrophils # (1.3-7.7) k/uL Lymphocytes # (1.0-4.8) k/uL Monocytes # (0-1.0) k/uL Eosinophils # (0-0.7) k/uL Basophils # (0-0.2) k/uL PT (9.0-12.0) sec INR (<1.2) APTT (22.0-30.0) sec Sodium (137-145) mmol/L Potassium (3.5-5.1) mmol/L Chloride (98-107) mmol/L Carbon Dioxide (22-30) mmol/L Anion Gap mmol/L BUN (9-20) mg/dL Creatinine (0.66-1.25) mg/dL Est GFR (CKD-EPI)AfAm (>60 ml/min/1.73 sqM) Est GFR (CKD-EPI)NonAf (>60 ml/min/1.73 sqM) Glucose (74-99) mg/dL Calcium (8.4-10.2) mg/dL Total Bilirubin (0.2-1.3) mg/dL AST (17-59) U/L ALT (4-49) U/L Alkaline Phosphatase (38-126) U/L Ammonia <9 (<30) umol/L Total Protein (6.3-8.2) g/dL Albumin (3.5-5.0) g/dL Amylase (30-110) U/L Lipase (23-300) U/L Coronavirus (PCR) Not Detected (Not Detectd) Disposition Clinical Impression: Liver failure, Elevated liver enzymes, Ascites, Abdominal pain Disposition: ADMITTED IP TO THIS HOSP Is patient prescribed a controlled substance at d/c from ED?: No
[2020-05-07] MEDS ORDERED: HYDROmorphone 1 MG/ML 1 ML SYRINGE IVP PRN (04:03)
[2020-05-07] MEDS ORDERED: HYDROmorphone 1 MG/ML 1 ML SYRINGE IVP STA (04:03)
[2020-05-07] MEDS ORDERED: ONDANSETRON 4 MG/2 ML VIAL IVP PRN (04:19)
[2020-05-07] MEDS ORDERED: NALOXONE 0.4 MG/ML 1 ML VIAL IV PRN (04:19)
[2020-05-07 04:20] LABS: Basophils # (A) 0.1 k/uL (0-0.2); Basophils % (A) 0 %; Eosinophils # (A) 0.3 k/uL (0-0.7); Eosinophils % (A) 2 %; HCT 34.9 % (39.0-53.0); HGB 11.5 gm/dL (13.0-17.5); Lymphocytes # (A) 2.5 k/uL (1.0-4.8); Lymphocytes % (A) 22 %; MCH 31.5 pg (25.0-35.0); MCHC 32.9 g/dL (31.0-37.0); MCV 95.9 fL (80.0-100.0); Mean Platelet Volume 8.4; Monocytes # (A) 0.8 k/uL (0-1.0); Monocytes % (A) 7 %; Neutrophils # (A) 7.5 k/uL (1.3-7.7); Neutrophils % (A) 66 %; Platelet Count 128 k/uL (150-450); RBC 3.64 m/uL (4.30-5.90); RDW 15.5 % (11.5-15.5); WBC 11.3 k/uL (3.8-10.6)
[2020-05-07 04:38] LABS: ALT 29 U/L (4-49); AST 81 U/L (17-59); African American GFR (CKD) >90 (>60 ml/min/1.73 sqM); Albumin 2.7 g/dL (3.5-5.0); Alkaline Phosphatase 125 U/L (38-126); Amylase 93 U/L (30-110); Anion Gap 9 mmol/L; Blood Urea Nitrogen 8 mg/dL (9-20); Calcium 8.6 mg/dL (8.4-10.2); Carbon Dioxide 24 mmol/L (22-30); Chloride 98 mmol/L (98-107); Glucose 100 mg/dL (74-99); Lipase 376 U/L (23-300); Non-African American GFR(CKD) >90 (>60 ml/min/1.73 sqM); Potassium 4.2 mmol/L (3.5-5.1); Sodium 131 mmol/L (137-145); Total Bilirubin 4.1 mg/dL (0.2-1.3); Total Protein 7.6 g/dL (6.3-8.2)
[2020-05-07 04:47] LABS: INR 1.8 (<1.2); Partial Thromboplastin Time 28.5 sec (22.0-30.0); Prothrombin Time 17.8 sec (9.0-12.0)
[2020-05-07 08:49] VITALS: TEMP 97.9
[2020-05-07 10:54] VITALS: RESP 16
[2020-05-07] MEDS ORDERED: SPIRONOLACTONE 25 MG TAB PO SCH (11:45)
[2020-05-07] MEDS ORDERED: FUROSEMIDE 40 MG TAB PO SCH (11:45)
[2020-05-07] MEDS ORDERED: PANTOPRAZOLE 40 MG TABLET PO SCH (11:45)
[2020-05-07] MEDS ORDERED: METOPROLOL TARTRATE 50 MG TAB PO SCH (11:45)
--- NOTE | 2020-05-07 13:20 | US ---
Ultrasound-guided paracentesis. DATE OF EXAM: 05/07/2020 CLINICAL HISTORY: Ascites The procedure was discussed with the patient. The risks, complications, benefits, and alternatives we re discussed and any questions were answered. Informed consent was obtained. The patient was placed s upine on the ultrasound table and prepped and draped in the usual sterile fashion. All elements of maximal barrier technique were utilized. Under ultrasound guidance, access into the right lower quadrant was obtained, via the paracentesis catheter system and direct ultrasound guidanc e. Approximately 2.1 liters of straw-colored fluid was removed. The patient was stable throughout the pr ocedure and remained stable upon discharge from Department of Radiology. IMPRESSION: Successful paracentesis under ultrasound guidance.
[2020-05-07 13:49] VITALS: BP 107/60; PULSE 68
[2020-05-07 14:21] LABS: Appearance,BF Hazy; Color,BF Yellow; Nucleated Cells, Body Fluid 145 /uL; RBC, Body Fluid 780 /uL
[2020-05-07 14:23] LABS: Mononuclear WBC,Body Fluid 74 %; Polynuclear WBC,Body Fluid 26 %; Total Cells Counted,Body Fluid 100
--- NOTE | 2020-05-07 22:56 | P.HPIM ---
History of Present Illness H&P Date: 05/07/20 Chief Complaint: Abdomen distended History of presenting complaint: This is a 39-year-old patient of Dr. Crowder. Patient has been drinking alcohol for several years. Patient was here in January 2020. EGD at that time showed moderate portal hypertensive gastropathy. Patient has portal hypertension, prolonged pro time,. Patient stopped drinking over a month ago. Patient now presents with increasing abdominal distention. Some edema. Leg cramping. No fever no chills. Appetite has been fair. Has been following up fluid restriction and low-salt diet. From the ER intervention radiology was consulted for a paracentesis. Review of systems: GEN.: Tired EYES: None HEENT: None NECK: None RESPIRATORY: Minimal shortness of breath CARDIOVASCULAR: None GASTROINTESTINAL: As above GENITOURINARY: None MUSCULOSKELETAL: None LYMPHATICS: None HEMATOLOGICAL: None PSYCHIATRY: None NEUROLOGICAL: None Past medical history to include: Chronic alcoholic liver disease, GI bleed from portal gastropathy, thrombocytopenia, alcohol-induced neuropathy, hypertension Social history: Drinking alcohol for many years. Stopped in 2020 Lives with his friend. No smoking. Physical examination: VITAL SIGNS: 98.4, 71, 18, 131/80, 100% on room air GENERAL: BMI 28.6, laying in bed comfortable. EYES: Pupils equal. Conjunctiva mild icterus. HEENT: External appearance of nose and ears normal, oral cavity grossly normal. NECK: JVD not raised; masses not palpable. HEART: First and second heart sounds are normal; cross edema. LUNGS: Respiratory rate normal; clear to auscultation. ABDOMEN: Soft, nontender, liver spleen not palpable, no masses palpable. PSYCH: Alert and oriented x3; mood and affect normal. NEUROLOGICAL: Cranial nerves grossly intact; no facial asymmetry, power and sensation grossly intact. LYMPHATICS: No lymph nodes palpable in the axilla and neck INVESTIGATIONS, reviewed in the clinical context: WBC 7.3 hemoglobin 11.5 platelets 128 pro time 17.8 potassium 4.2 creatinine 0.67 Albumin 2.7 Serum alcohol less than 10 Coronavirus [PCR]-not detected Assessment and plan: -Acute on chronic severe ascites symptomatic, therapeutic paracentesis , was done. 2.1 L was removed earlier today -Alcoholic liver disease. -Portal hypertension on beta unique -Severe hypoalbuminemia from liver disease -Prolonged pro time from liver disease. Supplemental vitamin K -Portal gastropathy -Hyperbilirubinemia -Essential hypertension Care was discussed with the patient. Patient be discharged home later today. Low-salt diet. Fluid restriction. Reinforced Past Medical History Past Medical History: Hypertension, Liver Disease Additional Past Medical History / Comment(s): fatty liver disease, Alcohol abuse, cirrhosis, ascites History of Any Multi-Drug Resistant Organisms: None Reported Past Surgical History: Orthopedic Surgery Additional Past Surgical History / Comment(s): rt hand, 2 lt shoulder, large volume paracentesis Past Anesthesia/Blood Transfusion Reactions: No Reported Reaction Past Psychological History: No Psychological Hx Reported Smoking Status: Never smoker Past Alcohol Use History: None Reported, Daily, Heavy Past Drug Use History: None Reported - Past Family History Mother Family Medical History: Hypertension Father Family Medical History: CVA/TIA Medications and Allergies Home Medications Medication Instructions Recorded Confirmed Type Pantoprazole Sodium [Protonix] 40 mg PO AC-BID 04/11/20 05/07/20 History Furosemide [Lasix] 40 mg PO DAILY #30 tab 04/12/20 05/07/20 Rx Metoprolol Tartrate [Lopressor] 50 mg PO BID #60 tab 04/12/20 05/07/20 Rx Spironolactone [Aldactone] 100 mg PO DAILY #30 tab 04/12/20 05/07/20 Rx Magnesium 200 mg PO Q48H #30 tablet 05/07/20 Rx Allergies Allergy/AdvReac Type Severity Reaction Status Date / Time morphine AdvReac Hallucinati Verified 05/07/20 06:49 ons Physical Exam Vitals: Vital Signs Temp Pulse Pulse Resp BP BP Pulse Ox 05/07/20 10:50 69 16 122/67 98 05/07/20 10:25 70 16 121/70 99 05/07/20 10:15 70 16 124/67 98 05/07/20 08:48 97.9 F 60 18 108/73 100 05/07/20 03:07 98.4 F 71 18 131/80 100 Intake and Output 05/06/20 05/07/20 05/07/20 22:59 06:59 14:59 Other: Weight 95.527 kg Results CBC & Chem 7: 05/07/20 03:58 05/07/20 03:58 Labs: Abnormal Lab Results - Last 24 Hours (Table) 05/07/20 05/07/20 05/07/20 Range/Units 03:58 03:58 03:58 WBC 11.3 H (3.8-10.6) k/uL RBC 3.64 L (4.30-5.90) m/uL Hgb 11.5 L (13.0-17.5) gm/dL Hct 34.9 L (39.0-53.0) % Plt Count 128 L (150-450) k/uL PT 17.8 H (9.0-12.0) sec INR 1.8 H (<1.2) Sodium 131 L (137-145) mmol/L BUN 8 L (9-20) mg/dL Glucose 100 H (74-99) mg/dL Total Bilirubin 4.1 H (0.2-1.3) mg/dL AST 81 H (17-59) U/L Albumin 2.7 L (3.5-5.0) g/dL Lipase 376 H (23-300) U/L
--- NOTE | 2020-05-07 22:58 | P.DS ---
Providers Date of admission: 05/07/20 04:20 Expected date of discharge: 05/07/20 Attending physician: Kulwant Hays Primary care physician: Carlos Enrique Crowder [facility] Course: Chief Complaint: Abdomen distended History of presenting complaint: This is a 39-year-old patient of Dr. Crowder. Patient has been drinking alcohol for several years. Patient was here in January 2020. EGD at that time showed moderate portal hypertensive gastropathy. Patient has portal hypertension, prolonged pro time,. Patient stopped drinking over a month ago. Patient now presents with increasing abdominal distention. Some edema. Leg cramping. No fever no chills. Appetite has been fair. Has been following up fluid restriction and low-salt diet. From the ER intervention radiology was consulted for a paracentesis. Today 2.1 L of paracentesis carried out. Patient is feeling well. No fever no chills. Fluid restriction and low-salt diet was discussed. Told to increase his Lasix and weight was to begin. Patient will follow-up with Dr. Wilson from GI Past medical history to include: Chronic alcoholic liver disease, GI bleed from portal gastropathy, thrombocytopenia, alcohol-induced neuropathy, hypertension Social history: Drinking alcohol for many years. Stopped in 2020 Lives with his friend. No smoking. Physical examination: VITAL SIGNS: 97.9, 60, 18, 1 22 x 57, 98% room air GENERAL: BMI 28.6, laying in bed comfortable. EYES: Pupils equal. Conjunctiva mild icterus. HEENT: External appearance of nose and ears normal, oral cavity grossly normal. NECK: JVD not raised; masses not palpable. HEART: First and second heart sounds are normal; cross edema. LUNGS: Respiratory rate normal; clear to auscultation. ABDOMEN: Soft, nontender, liver spleen not palpable, no masses palpable. PSYCH: Alert and oriented x3; mood and affect normal. INVESTIGATIONS, reviewed in the clinical context: WBC 7.3 hemoglobin 11.5 platelets 128 pro time 17.8 potassium 4.2 creatinine 0.67 Albumin 2.7 Serum alcohol less than 10 Coronavirus [PCR]-not detected Assessment and plan: -Acute on chronic severe ascites symptomatic, therapeutic paracentesis , was done. 2.1 L was removed earlier today -Alcoholic liver disease. -Portal hypertension on beta unique -Severe hypoalbuminemia from liver disease -Prolonged pro time from liver disease. Supplemental vitamin K -Portal gastropathy -Hyperbilirubinemia -Essential hypertension Disposition: Home Plan - Discharge Summary New Discharge Prescriptions: New Magnesium 200 mg PO Q48H #30 tablet Continue Pantoprazole Sodium [Protonix] 40 mg PO AC-BID Spironolactone [Aldactone] 100 mg PO DAILY #30 tab Furosemide [Lasix] 40 mg PO DAILY #30 tab Metoprolol Tartrate [Lopressor] 50 mg PO BID #60 tab Discharge Medication List Pantoprazole Sodium [Protonix] 40 mg PO AC-BID 04/11/20 [History] Furosemide [Lasix] 40 mg PO DAILY #30 tab 04/12/20 [Rx] Metoprolol Tartrate [Lopressor] 50 mg PO BID #60 tab 04/12/20 [Rx] Spironolactone [Aldactone] 100 mg PO DAILY #30 tab 04/12/20 [Rx] Magnesium 200 mg PO Q48H #30 tablet 05/07/20 [Rx] Follow up Appointment(s)/Referral(s): Carlos Enrique Crowder MD [Primary Care Provider] - 1-2 days Luisito Cook MD [STAFF PHYSICIAN] - 1 Week Activity/Diet/Wound Care/Special Instructions: bmp - 5 days Discharge Disposition: HOME SELF-CARE
[2020-05-08 02:08] LABS: Total Protein, Body Fluid 1670 mg/dL
== END 2020-05-07 20:24 | disposition home or self-care (01) | DRG 433 ==
LOC: EC 03:03 → 5NMEDONC 04:20
PROVIDERS: ADMIT Hospitalist; ATTEND Hospitalist
PROC: 0W9G3ZZ Drainage of Peritoneal Cavity, Percutaneous Approach (ICD-10-PCS; principal; 2020-05-07)
DX: K70.31 Alcoholic cirrhosis of liver with ascites (principal); K76.6 Portal hypertension; F10.21 Alcohol dependence, in remission; G62.1 Alcoholic polyneuropathy; I86.4 Gastric varices; D69.6 Thrombocytopenia, unspecified; K31.89 Other diseases of stomach and duodenum; E88.09 Other disorders of plasma-protein metabolism, not elsewhere classified; I10 Essential (primary) hypertension; K70.40 Alcoholic hepatic failure without coma; K76.0 Fatty (change of) liver, not elsewhere classified; Z87.19 Personal history of other diseases of the digestive system; Z79.899 Other long term (current) drug therapy; Z82.49 Family history of ischemic heart disease and other diseases of the circulatory system; R79.1 Abnormal coagulation profile; Z20.822 Contact with and (suspected) exposure to COVID-19; Z88.5 Allergy status to narcotic agent
CPT/HCPCS: 36415; 49083; 80053; 80320; 82140; 82150; 83690; 84157; 85025; 85610; 85730; 87070; 87205; 87635; 89050; 96374; 99285

== ENCOUNTER 2020-05-12 01:23 | Inpatient (IN) | payer OTHER ==
[2020-05-12] MEDS ORDERED: fentaNYL (PF) 50 MCG/ML 2 ML AMP IVP STA (03:29)
--- NOTE | 2020-05-12 03:33 | ED ---
Abdominal Pain HPI - General Chief Complaint: Abdominal Pain Stated Complaint: Abdominal pain Time Seen by Provider: 05/12/20 01:47 Source: patient Mode of arrival: ambulatory Limitations: no limitations - History of Present Illness Initial Comments: This patient is a 39-year-old man with history of alcohol liver disease, who presents with complaint of bilateral abdominal pain. The patient states that the symptoms have been getting worse over the past approximately 3 days. He states the pain is somewhat achy. It tends to be worse if he is lying on his side makes the pain on the dependent side tend to get worse. He has not noted relieving factors. No change in urination. The patient states she does seem to be having more frequent bowel movements though has not noted any blood or tarry stools. MD Complaint: abdominal pain Onset/Timin -: days(s) Location: diffuse Radiation: none Severity: moderate Quality: aching Consistency: constant Improves With: nothing Worsens With: nothing Associated Symptoms: denies other symptoms - Related Data Home Medications Medication Instructions Recorded Confirmed Pantoprazole Sodium [Protonix] 40 mg PO AC-BID 04/11/20 05/12/20 Previous Rx's Medication Instructions Recorded Furosemide [Lasix] 40 mg PO DAILY #30 tab 04/12/20 Metoprolol Tartrate [Lopressor] 50 mg PO BID #60 tab 04/12/20 Spironolactone [Aldactone] 100 mg PO DAILY #30 tab 04/12/20 Magnesium 200 mg PO Q48H #30 tablet 05/07/20 Allergies Allergy/AdvReac Type Severity Reaction Status Date / Time morphine AdvReac Hallucinati Verified 05/12/20 01:35 ons Review of Systems ROS Statement: Those systems with pertinent positive or pertinent negative responses have been documented in the HPI. ROS Other: All systems not noted in ROS Statement are negative. Constitutional: Denies: fever, chills Respiratory: Denies: cough, dyspnea Cardiovascular: Denies: chest pain, palpitations, orthopnea, edema, syncope Gastrointestinal: Reports: abdominal pain. Denies: nausea, vomiting, diarrhea, constipation, melena, hematochezia Genitourinary: Denies: dysuria, hematuria, testicular pain, testicular mass Musculoskeletal: Denies: back pain Skin: Denies: rash Neurological: Denies: headache, weakness, numbness Past Medical History Past Medical History: Hypertension, Liver Disease Additional Past Medical History / Comment(s): fatty liver disease, Alcohol abuse, cirrhosis, ascites History of Any Multi-Drug Resistant Organisms: None Reported Past Surgical History: Orthopedic Surgery Additional Past Surgical History / Comment(s): rt hand, 2 lt shoulder, large volume paracentesis Past Anesthesia/Blood Transfusion Reactions: No Reported Reaction Past Psychological History: No Psychological Hx Reported Smoking Status: Never smoker Past Alcohol Use History: None Reported, Daily, Heavy Past Drug Use History: None Reported - Past Family History Mother Family Medical History: Hypertension Father Family Medical History: CVA/TIA General Exam Limitations: no limitations General appearance: alert, in no apparent distress Head exam: Present: atraumatic, normocephalic Eye exam: Present: normal appearance. Absent: scleral icterus, conjunctival injection ENT exam: Present: normal oropharynx Neck exam: Present: normal inspection Respiratory exam: Present: normal lung sounds bilaterally. Absent: respiratory distress, wheezes, rales, rhonchi, stridor Cardiovascular Exam: Present: regular rate, normal rhythm, normal heart sounds. Absent: systolic murmur, diastolic murmur, rubs, gallop GI/Abdominal exam: Present: soft, normal bowel sounds, hernia (Right inguinal hernia, with mild tenderness, which I was able to reduce at bedside). Absent: distended, tenderness, guarding, rebound, rigid, mass, pulsatile mass Extremities exam: Present: normal inspection, normal capillary refill. Absent: pedal edema, calf tenderness Back exam: Present: normal inspection. Absent: CVA tenderness (R), CVA tenderness (L) Neurological exam: Present: alert Skin exam: Present: warm, dry, intact, normal color. Absent: rash Course Vital Signs 05/12/20 05/12/20 05/12/20 01:31 03:50 05:05 Temperature 98.3 F Pulse Rate 69 60 63 Respiratory 20 18 18 Rate Blood Pressure 118/76 116/72 115/56 O2 Sat by Pulse 100 100 99 Oximetry 05/12/20 06:28 Temperature Pulse Rate 63 Respiratory 20 Rate Blood Pressure 115/61 O2 Sat by Pulse 99 Oximetry Medical Decision Making - Medical Decision Making Patient is 31-year-old man with underlying liver disease, who presents with abdominal pain and found to have urinary tract infection. Given the patient's comorbidity will admit for observation to ensure there is response to antibiotic therapy. Case discussed with the admitting physician The patient also with mild hyperammonemia, not manifesting any encephalopathy, he is given 1 dose of lactulose. - Lab Data Result diagrams: 05/12/20 03:11 05/12/20 03:11 Lab Results 05/12/20 05/12/20 05/12/20 Range/Units 03:11 03:11 03:11 WBC 9.7 (3.8-10.6) k/uL RBC 3.75 L (4.30-5.90) m/uL Hgb 11.8 L (13.0-17.5) gm/dL Hct 35.8 L (39.0-53.0) % MCV 95.5 (80.0-100.0) fL MCH 31.4 (25.0-35.0) pg MCHC 32.9 (31.0-37.0) g/dL RDW 15.7 H (11.5-15.5) % Plt Count 139 L (150-450) k/uL MPV 8.5 Neutrophils % 58 % Lymphocytes % 27 % Monocytes % 9 % Eosinophils % 5 % Basophils % 1 % Neutrophils # 5.6 (1.3-7.7) k/uL Lymphocytes # 2.6 (1.0-4.8) k/uL Monocytes # 0.8 (0-1.0) k/uL Eosinophils # 0.4 (0-0.7) k/uL Basophils # 0.1 (0-0.2) k/uL PT (9.0-12.0) sec INR (<1.2) APTT (22.0-30.0) sec Sodium 137 (137-145) mmol/L Potassium 3.5 (3.5-5.1) mmol/L Chloride 103 (98-107) mmol/L Carbon Dioxide 26 (22-30) mmol/L Anion Gap 8 mmol/L BUN 7 L (9-20) mg/dL Creatinine 0.78 (0.66-1.25) mg/dL Est GFR (CKD-EPI)AfAm >90 (>60 ml/min/1.73 sqM) Est GFR (CKD-EPI)NonAf >90 (>60 ml/min/1.73 sqM) Glucose 93 (74-99) mg/dL Plasma Lactic Acid Adiel 1.4 (0.7-2.0) mmol/L Calcium 8.2 L (8.4-10.2) mg/dL Total Bilirubin 3.6 H (0.2-1.3) mg/dL AST 79 H (17-59) U/L ALT 27 (4-49) U/L Alkaline Phosphatase 113 (38-126) U/L Ammonia 66 H (<30) umol/L C-Reactive Protein 10.7 H (<10.0) mg/L Total Protein 7.4 (6.3-8.2) g/dL Albumin 2.6 L (3.5-5.0) g/dL Amylase 184 H (30-110) U/L Lipase 372 H (23-300) U/L Urine Color Urine Appearance (Clear) Urine pH (5.0-8.0) Ur Specific Lohn (1.001-1.035) Urine Protein (Negative) Urine Glucose (UA) (Negative) Urine Ketones (Negative) Urine Blood (Negative) Urine Nitrite (Negative) Urine Bilirubin (Negative) Urine Urobilinogen (<2.0) mg/dL Ur Leukocyte Esterase (Negative) Urine RBC (0-5) /hpf Urine WBC (0-5) /hpf Ur Squamous Epith Cells (0-4) /hpf Hyaline Casts (0-2) /lpf Urine Mucus (None) /hpf 05/12/20 05/12/20 Range/Units 03:11 03:47 WBC (3.8-10.6) k/uL RBC (4.30-5.90) m/uL Hgb (13.0-17.5) gm/dL Hct (39.0-53.0) % MCV (80.0-100.0) fL MCH (25.0-35.0) pg MCHC (31.0-37.0) g/dL RDW (11.5-15.5) % Plt Count (150-450) k/uL MPV Neutrophils % % Lymphocytes % % Monocytes % % Eosinophils % % Basophils % % Neutrophils # (1.3-7.7) k/uL Lymphocytes # (1.0-4.8) k/uL Monocytes # (0-1.0) k/uL Eosinophils # (0-0.7) k/uL Basophils # (0-0.2) k/uL PT 18.2 H (9.0-12.0) sec INR 1.8 H (<1.2) APTT 29.5 (22.0-30.0) sec Sodium (137-145) mmol/L Potassium (3.5-5.1) mmol/L Chloride (98-107) mmol/L Carbon Dioxide (22-30) mmol/L Anion Gap mmol/L BUN (9-20) mg/dL Creatinine (0.66-1.25) mg/dL Est GFR (CKD-EPI)AfAm (>60 ml/min/1.73 sqM) Est GFR (CKD-EPI)NonAf (>60 ml/min/1.73 sqM) Glucose (74-99) mg/dL Plasma Lactic Acid Adiel (0.7-2.0) mmol/L Calcium (8.4-10.2) mg/dL Total Bilirubin (0.2-1.3) mg/dL AST (17-59) U/L ALT (4-49) U/L Alkaline Phosphatase (38-126) U/L Ammonia (<30) umol/L C-Reactive Protein (<10.0) mg/L Total Protein (6.3-8.2) g/dL Albumin (3.5-5.0) g/dL Amylase (30-110) U/L Lipase (23-300) U/L Urine Color [place] Urine Appearance Cloudy (Clear) Urine pH 6.0 (5.0-8.0) Ur Specific Lohn 1.029 (1.001-1.035) Urine Protein 1+ H (Negative) Urine Glucose (UA) Negative (Negative) Urine Ketones Negative (Negative) Urine Blood Negative (Negative) Urine Nitrite Negative (Negative) Urine Bilirubin 2+ H (Negative) Urine Urobilinogen 8.0 (<2.0) mg/dL Ur Leukocyte Esterase Negative (Negative) Urine RBC 2 (0-5) /hpf Urine WBC 42 H (0-5) /hpf Ur Squamous Epith Cells 1 (0-4) /hpf Hyaline Casts 101 H (0-2) /lpf Urine Mucus Many H (None) /hpf Disposition Clinical Impression: Urinary tract infection, Hyperammonemia Disposition: ADMITTED IP TO THIS HOSP Condition: Fair Is patient prescribed a controlled substance at d/c from ED?: No
[2020-05-12 03:40] LABS: Basophils # (A) 0.1 k/uL (0-0.2); Basophils % (A) 1 %; Eosinophils # (A) 0.4 k/uL (0-0.7); Eosinophils % (A) 5 %; HCT 35.8 % (39.0-53.0); HGB 11.8 gm/dL (13.0-17.5); Lymphocytes # (A) 2.6 k/uL (1.0-4.8); Lymphocytes % (A) 27 %; MCH 31.4 pg (25.0-35.0); MCHC 32.9 g/dL (31.0-37.0); MCV 95.5 fL (80.0-100.0); Mean Platelet Volume 8.5; Monocytes # (A) 0.8 k/uL (0-1.0); Monocytes % (A) 9 %; Neutrophils # (A) 5.6 k/uL (1.3-7.7); Neutrophils % (A) 58 %; Platelet Count 139 k/uL (150-450); RBC 3.75 m/uL (4.30-5.90); RDW 15.7 % (11.5-15.5); WBC 9.7 k/uL (3.8-10.6)
[2020-05-12 03:42] LABS: Lactic Acid, Venous 1.4 mmol/L (0.7-2.0)
[2020-05-12 03:48] LABS: ALT 27 U/L (4-49); AST 79 U/L (17-59); African American GFR (CKD) >90 (>60 ml/min/1.73 sqM); Albumin 2.6 g/dL (3.5-5.0); Alkaline Phosphatase 113 U/L (38-126); Amylase 184 U/L (30-110); Anion Gap 8 mmol/L; Blood Urea Nitrogen 7 mg/dL (9-20); C Reactive Protein 10.7 mg/L (<10.0); Calcium 8.2 mg/dL (8.4-10.2); Carbon Dioxide 26 mmol/L (22-30); Chloride 103 mmol/L (98-107); Glucose 93 mg/dL (74-99); Lipase 372 U/L (23-300); Non-African American GFR(CKD) >90 (>60 ml/min/1.73 sqM); Potassium 3.5 mmol/L (3.5-5.1); Sodium 137 mmol/L (137-145); Total Bilirubin 3.6 mg/dL (0.2-1.3); Total Protein 7.4 g/dL (6.3-8.2)
[2020-05-12 04:13] LABS: INR 1.8 (<1.2); Partial Thromboplastin Time 29.5 sec (22.0-30.0); Prothrombin Time 18.2 sec (9.0-12.0)
[2020-05-12 04:14] LABS: Appearance,Urine Cloudy (Clear); Bilirubin,Urine 2+ (Negative); Blood,Urine Negative (Negative); Color,Urine Orange; Glucose,Urine (UA) Negative (Negative); Hyaline Casts,Urine 101 /lpf (0-2); Ketones,Urine Negative (Negative); Leukocyte Esterase,Urine Negative (Negative); Mucus,Urine Many /hpf; Nitrite,Urine Negative (Negative); Protein,Urine 1+ (Negative); RBC,Urine 2 /hpf (0-5); Specific Gravity,Urine 1.029 (1.001-1.035); Squamous Epithelial Cell,Urine 1 /hpf (0-4); WBC,Urine 42 /hpf (0-5)
[2020-05-12] MEDS ORDERED: LACTULOSE 20 GM/30 ML CUP PO ONE (04:17)
[2020-05-12] MEDS ORDERED: NALOXONE 0.4 MG/ML 1 ML VIAL IV PRN (05:59)
[2020-05-12] MEDS: FAMOTIDINE 20 MG TAB PO SCH ×2 (07:37→20:21)
[2020-05-12] MEDS: SPIRONOLACTONE 25 MG TAB PO SCH (07:38)
[2020-05-12] MEDS: FUROSEMIDE 40 MG TAB PO SCH (07:39)
[2020-05-12] MEDS: PANTOPRAZOLE 40 MG TABLET PO SCH ×2 (07:39→17:01)
[2020-05-12] MEDS: METOPROLOL TARTRATE 50 MG TAB PO SCH ×2 (07:39→20:21)
--- NOTE | 2020-05-12 19:08 | P.HPIM ---
History of Present Illness H&P Date: 05/12/20 Chief Complaint: Abdominal pain History of presenting complaint: This is a 39-year-old patient of Dr. Crowder. Patient has been drinking alcohol for several years. Patient was here in January 2020. EGD that time showed moderate portal hypertensive gastropathy. Patient has portal hypertension, prolonged pro time,. Patient stopped drinking over a month ago. Patient 0.6 days ago. The abdominal distention. 2.1 L of paracentesis was carried out. Patient is feeling well. Patient has been doing well in terms of maintaining fluid restriction, low-salt diet. No more drinking. Patient now presents with a in both the flanks. Pain does not radiate. Patient's pain does increase with eating. Also been having some joint pains and knee and right ankle. Patient had one episode of dark urine. No fever no chills. No respiratory symptoms Review of systems: GEN.: Tired EYES: None HEENT: None NECK: None RESPIRATORY: None CARDIOVASCULAR: None GASTROINTESTINAL: As above GENITOURINARY: None MUSCULOSKELETAL: None LYMPHATICS: None HEMATOLOGICAL: None PSYCHIATRY: None NEUROLOGICAL: None Past medical history to include: Chronic alcoholic liver disease, GI bleed from portal gastropathy, thrombocytopenia, alcohol-induced neuropathy, hypertension Social history: Drinking alcohol for many years. Stopped in 2020 Lives with his friend. No smoking. Physical examination: VITAL SIGNS: 98, 73, 18, 116/64, 98% on room air GENERAL: BMI 28.6, laying in bed awake EYES: Pupils equal. Conjunctiva mild icterus. HEENT: External appearance of nose and ears normal, oral cavity grossly normal. NECK: JVD not raised; masses not palpable. HEART: First and second heart sounds are normal; cross edema. LUNGS: Respiratory rate normal; clear to auscultation. ABDOMEN: Soft, minimal tenderness on both sides. No guarding rigidity. Abdomen is nondistended, liver spleen not palpable, no masses palpable. PSYCH: Alert and oriented x3; mood and affect normal. NEUROLOGICAL: Cranial nerves grossly intact; no facial asymmetry, power and sensation grossly intact. LYMPHATICS: No lymph nodes palpable in the axilla and neck INVESTIGATIONS, reviewed in the clinical context: WBC 9.7 hemoglobin 11.8 platelets 139 potassium 3.5 crit 0.78 total bilirubin 3.6 AST 79 ALT 27 ammonia 66 amylase 182 lipase 372 UA positive for protein, WBC 42 hyaline cast 101 Coronavirus [PCR]-not detected Assessment and plan: -Patient presents with pain in both of sides of the abdomen. Nausea. Some discomfort pain in the abdomen when he eats. Questionable mild pancreatitis. -Alcoholic liver disease. -Portal hypertension on beta unique -Severe hypoalbuminemia from liver disease -Prolonged pro time from liver disease. Supplemental vitamin K -Portal gastropathy -Hyperbilirubinemia -Essential hypertension -Joint pains in both the knees and right ankle. We'll check patient's uric acid level. We'll put the patient on clear liquid diet. Other medications to continue. Co nsult GI. Care was discussed with the patient. Daily lactulose. Past Medical History Past Medical History: Hypertension, Liver Disease Additional Past Medical History / Comment(s): fatty liver disease, Alcohol abuse, cirrhosis, ascites History of Any Multi-Drug Resistant Organisms: None Reported Past Surgical History: Orthopedic Surgery Additional Past Surgical History / Comment(s): rt hand, 2 lt shoulder, large volume paracentesis Past Anesthesia/Blood Transfusion Reactions: No Reported Reaction Past Psychological History: No Psychological Hx Reported Smoking Status: Never smoker Past Alcohol Use History: None Reported, Daily, Heavy Past Drug Use History: None Reported - Past Family History Mother Family Medical History: Hypertension Father Family Medical History: CVA/TIA Medications and Allergies Home Medications Medication Instructions Recorded Confirmed Type Pantoprazole Sodium [Protonix] 40 mg PO AC-BID 04/11/20 05/12/20 History Furosemide [Lasix] 40 mg PO DAILY #30 tab 04/12/20 05/12/20 Rx Metoprolol Tartrate [Lopressor] 50 mg PO BID #60 tab 04/12/20 05/12/20 Rx Spironolactone [Aldactone] 100 mg PO DAILY #30 tab 04/12/20 05/12/20 Rx Magnesium 200 mg PO Q48H #30 tablet 05/07/20 05/12/20 Rx Allergies Allergy/AdvReac Type Severity Reaction Status Date / Time morphine AdvReac Hallucinati Verified 05/12/20 07:10 ons Physical Exam Vitals: Vital Signs Temp Pulse Pulse Resp BP BP Pulse Ox 05/12/20 08:00 98.2 F 59 L 18 132/75 100 05/12/20 07:48 98.0 F 73 18 116/64 98 05/12/20 06:28 63 20 115/61 99 05/12/20 05:05 63 18 115/56 99 05/12/20 03:50 60 18 116/72 100 05/12/20 01:31 98.3 F 69 20 118/76 100 Intake and Output 05/11/20 05/12/20 05/12/20 21:59 06:59 14:59 Other: Weight Results CBC & Chem 7: 05/12/20 03:11 05/12/20 03:11 Labs: Abnormal Lab Results - Last 24 Hours (Table) 05/12/20 05/12/20 05/12/20 Range/Units 03:11 03:11 03:11 RBC 3.75 L (4.30-5.90) m/uL Hgb 11.8 L (13.0-17.5) gm/dL Hct 35.8 L (39.0-53.0) % RDW 15.7 H (11.5-15.5) % Plt Count 139 L (150-450) k/uL PT (9.0-12.0) sec INR (<1.2) BUN 7 L (9-20) mg/dL Calcium 8.2 L (8.4-10.2) mg/dL Total Bilirubin 3.6 H (0.2-1.3) mg/dL AST 79 H (17-59) U/L Ammonia 66 H (<30) umol/L C-Reactive Protein 10.7 H (<10.0) mg/L Albumin 2.6 L (3.5-5.0) g/dL Amylase 184 H (30-110) U/L Lipase 372 H (23-300) U/L Urine Protein (Negative) Urine Bilirubin (Negative) Urine WBC (0-5) /hpf Hyaline Casts (0-2) /lpf Urine Mucus (None) /hpf 05/12/20 05/12/20 Range/Units 03:11 03:47 RBC (4.30-5.90) m/uL Hgb (13.0-17.5) gm/dL Hct (39.0-53.0) % RDW (11.5-15.5) % Plt Count (150-450) k/uL PT 18.2 H (9.0-12.0) sec INR 1.8 H (<1.2) BUN (9-20) mg/dL Calcium (8.4-10.2) mg/dL Total Bilirubin (0.2-1.3) mg/dL AST (17-59) U/L Ammonia (<30) umol/L C-Reactive Protein (<10.0) mg/L Albumin (3.5-5.0) g/dL Amylase (30-110) U/L Lipase (23-300) U/L Urine Protein 1+ H (Negative) Urine Bilirubin 2+ H (Negative) Urine WBC 42 H (0-5) /hpf Hyaline Casts 101 H (0-2) /lpf Urine Mucus Many H (None) /hpf Microbiology - Last 24 Hours (Table) 05/12/20 03:47 Urine Culture - Preliminary Urine,Voided Thrombosis Risk Factor Assmnt - Choose All That Apply Any of the Below Risk Factors Present?: Yes Each Factor Represents 1 point: Obesity (BMI >25) Thrombosis Risk Factor Assessment Total Risk Factor Score: 1 Thrombosis Risk Factor Assessment Level: Low Risk
[2020-05-13] MEDS: FAMOTIDINE 20 MG TAB PO SCH ×2 (08:14→22:06)
[2020-05-13] MEDS: PANTOPRAZOLE 40 MG TABLET PO SCH ×2 (08:14→17:03)
[2020-05-13] MEDS: FUROSEMIDE 40 MG TAB PO SCH (08:15)
[2020-05-13] MEDS: SPIRONOLACTONE 25 MG TAB PO SCH (08:15)
[2020-05-13] MEDS: LACTULOSE 20 GM/30 ML CUP PO SCH (08:15)
[2020-05-13] MEDS: METOPROLOL TARTRATE 50 MG TAB PO SCH ×2 (08:15→22:06)
[2020-05-13] MEDS ORDERED: MAGNESIUM OXIDE 400 MG TAB PO SCH (09:00)
--- NOTE | 2020-05-13 23:41 | P.PN ---
Progress Note - Text Progress Note Date: 05/13/20 Chief Complaint: Abdominal pain History of presenting complaint: This is a 39-year-old patient of Dr. Crowder. Patient has been drinking alcohol for several years. Patient was here in January 2020. EGD that time showed moderate portal hypertensive gastropathy. Patient has portal hypertension, prolonged pro time,. Patient stopped drinking over a month ago. Patient 0.6 days ago. The abdominal distention. 2.1 L of paracentesis was carried out. Patient is feeling well. Patient has been doing well in terms of maintaining fluid restriction, low-salt diet. No more drinking. Patient now presents with a in both the flanks. Pain does not radiate. Patient's pain does increase with eating. Also been having some joint pains and knee and right ankle. Patient had one episode of dark urine. No fever no chills. No respiratory symptoms Admitted with abdominal pain. No fever no chills. Some elevation in amylase and lipase. Could be low-grade pancreatitis. No white count. Today-still having abdominal discomfort and pain. Some nausea. Decreased appetite. Empirically has been on IV antibiotic Review of systems: Was done for constitutional, cardiovascular, GI, pulmonary. relevant finding as above Active Medications Famotidine (Famotidine 20 Mg Tab) 20 mg PO BID [facility] Last Admin: 05/13/20 22:06 Dose: 20 mg Documented by: Furosemide (Furosemide 40 Mg Tab) 40 mg PO DAILY [facility] Last Admin: 05/13/20 08:15 Dose: 40 mg Documented by: Ceftriaxone Sodium 2 gm/ (Sodium Chloride) 50 mls @ 100 mls/hr IVPB Q24HR [facility] Lactulose (Lactulose 20 Gm/30 Ml Cup) 20 gm PO DAILY [facility] Last Admin: 05/13/20 08:15 Dose: 20 gm Documented by: Magnesium Oxide (Magnesium Oxide 400 Mg Tab) 200 mg PO Q48H [facility] Last Admin: 05/13/20 08:14 Dose: 200 mg Documented by: Metoprolol Tartrate (Metoprolol Tartrate 50 Mg Tab) 50 mg PO BID [facility] Last Admin: 05/13/20 22:06 Dose: 50 mg Documented by: Naloxone HCl (Naloxone 0.4 Mg/Ml 1 Ml Vial) 0.2 mg IV Q2M PRN PRN Reason: Opioid Reversal Pantoprazole Sodium (Pantoprazole 40 Mg Tablet) 40 mg PO AC-BID [facility] Last Admin: 05/13/20 17:03 Dose: 40 mg Documented by: Spironolactone (Spironolactone 25 Mg Tab) 100 mg PO DAILY [facility] Last Admin: 05/13/20 08:15 Dose: 100 mg Documented by: Past medical history to include: Chronic alcoholic liver disease, GI bleed from portal gastropathy, thrombocytopenia, alcohol-induced neuropathy, hypertension Social history: Drinking alcohol for many years. Stopped in 2020 Lives with his friend. No smoking. Physical examination: VITAL SIGNS: 98.1, 60, 18, 118/73, 97% on room air GENERAL: BMI 28.6, laying in bed awake EYES: Pupils equal. Conjunctiva mild icterus. HEENT: External appearance of nose and ears normal, oral cavity grossly normal. NECK: JVD not raised; masses not palpable. HEART: First and second heart sounds are normal; cross edema. LUNGS: Respiratory rate normal; clear to auscultation. ABDOMEN: Soft, some abdominal tenderness . No guarding rigidity. Abdomen is nondistended, liver spleen not palpable, no masses palpable. PSYCH: Alert and oriented x3; mood and affect normal. INVESTIGATIONS, reviewed in the clinical context: Uric acid 6.1 WBC 9.7 hemoglobin 11.8 platelets 139 potassium 3.5 crit 0.78 total bilirubin 3.6 AST 79 ALT 27 ammonia 66 amylase 182 lipase 372 UA positive for protein, WBC 42 hyaline cast 101 Coronavirus [PCR]-not detected Assessment and plan: -Patient presents with pain in both of sides of the abdomen. Nausea. Some discomfort pain in the abdomen when he eats. Possible mild pancreatitis. Consult GI -Alcoholic liver disease. -Portal hypertension on beta unique -Severe hypoalbuminemia from liver disease -Prolonged pro time from liver disease. Supplemental vitamin K -Portal gastropathy -Hyperbilirubinemia -Essential hypertension -Joint pains in both the knees and right ankle. Uric acid 6.1. Likely arthralgia Continue ceftriaxone. Repeat amylase lipase. GI consulted.
[2020-05-14 06:38] LABS: Basophils # (A) 0.1 k/uL (0-0.2); Basophils % (A) 1 %; Eosinophils # (A) 0.3 k/uL (0-0.7); Eosinophils % (A) 5 %; HCT 33.1 % (39.0-53.0); HGB 11.1 gm/dL (13.0-17.5); Lymphocytes # (A) 2.2 k/uL (1.0-4.8); Lymphocytes % (A) 31 %; MCH 32.1 pg (25.0-35.0); MCHC 33.4 g/dL (31.0-37.0); MCV 96.2 fL (80.0-100.0); Mean Platelet Volume 8.6; Monocytes # (A) 0.5 k/uL (0-1.0); Monocytes % (A) 7 %; Neutrophils # (A) 3.8 k/uL (1.3-7.7); Neutrophils % (A) 54 %; Platelet Count 113 k/uL (150-450); RBC 3.44 m/uL (4.30-5.90); RDW 15.5 % (11.5-15.5)
[2020-05-14 06:48] LABS: Amylase 70 U/L (30-110); Lipase 203 U/L (23-300)
[2020-05-14 07:58] VITALS: TEMP 97.7
[2020-05-14] MEDS: SPIRONOLACTONE 25 MG TAB PO SCH (08:39)
[2020-05-14] MEDS: FAMOTIDINE 20 MG TAB PO SCH (08:39)
[2020-05-14] MEDS: METOPROLOL TARTRATE 50 MG TAB PO SCH (08:40)
[2020-05-14] MEDS: LACTULOSE 20 GM/30 ML CUP PO SCH (08:40)
[2020-05-14] MEDS: PANTOPRAZOLE 40 MG TABLET PO SCH ×2 (08:40→16:25)
[2020-05-14] MEDS: FUROSEMIDE 40 MG TAB PO SCH (08:40)
[2020-05-14 09:35] LABS: ALT 25 U/L (4-49); AST 89 U/L (17-59); African American GFR (CKD) >90 (>60 ml/min/1.73 sqM); Albumin 2.2 g/dL (3.5-5.0); Albumin/Globulin Ratio 0.5; Alkaline Phosphatase 79 U/L (38-126); Anion Gap 3 mmol/L; Blood Urea Nitrogen 7 mg/dL (9-20); Carbon Dioxide 29 mmol/L (22-30); Chloride 103 mmol/L (98-107); Globulin 4.4 g/dL; Glucose 83 mg/dL (74-99); Non-African American GFR(CKD) >90 (>60 ml/min/1.73 sqM); Potassium 3.8 mmol/L (3.5-5.1); Sodium 135 mmol/L (137-145); Total Bilirubin 4.8 mg/dL (0.2-1.3); Total Protein 6.6 g/dL (6.3-8.2)
[2020-05-14 12:51] VITALS: BP 119/72; PULSE 67; RESP 15
--- NOTE | 2020-05-14 15:01 | US ---
EXAMINATION TYPE: US abdomen complete DATE OF EXAM: 05/14/2020 COMPARISON: US & CT CLINICAL HISTORY: abdominal pain. Pt states ABD pain EXAM MEASUREMENTS: Liver Length: 16.2 cm Gallbladder Wall: 0.4 cm CBD: 0.4 cm Spleen: 12.2 cm Right Kidney: 13.1 x 5.6 x 5.4 cm Left Kidney: 12.7 x 6.2 x 5.6 cm Pancreas: Obscured by bowel gas Liver: Heterogeneous, difficult to penetrate Gallbladder: Thickened wall, small polyp posterior wall Evidence for sonographic Lugo's sign: No CBD: wnl Spleen: wnl Right Kidney: wnl Left Kidney: wnl Upper IVC: wnl Abd Aorta: Mid and Distal portions wnl, proximal portion gassed out Mild amount of ascites present IMPRESSION: 1. Mild to moderate fatty liver. 2. Hepatomegaly. 3. Thickened gallbladder wall. Polyp or adherent stone may be present. Pericholecystic fluid may be p resent. Clinical consideration for cholecystitis is recommended 4. Ascites
--- NOTE | 2020-05-14 15:48 | CONS ---
CONSULTATION DATE OF DICTATION: 05/14/2020 REASON FOR CONSULTATION: Abdominal pain. HISTORY OF THE PRESENT ILLNESS: The patient is a 39-year-old pleasant white male with a history of heavy alcoholism and alcoholic cirrhosis of the liver diagnosed 2 months ago. The patient was admitted to the hospital because of abdominal distention and abdominal pain, mostly in the right upper quadrant area radiating to the left upper quadrant area. He quit drinking about 34 days ago. He had a large-volume paracentesis done on April 21, and 7 liters of fluid was removed. His last paracentesis was done on May 07, when 2.1 liters of fluid was removed. After removing the fluid he continues to have the abdominal discomfort, mostly in the right upper quadrant area radiating to the left upper quadrant area associated with some mild abdominal distention but no nausea or vomiting. He came to the emergency room and was noted to have mild elevation of lipase at 373. He denies any nausea, vomiting. He reports no change in bowel habits. At the time of admission to the hospital he was also noted to have mildly elevated ammonia at 74 and was started on oral lactulose. PAST MEDICAL HISTORY: Significant for alcoholism and alcoholic liver disease, ascites, hypertension. MEDICATIONS: Medications at home include Lasix 40 mg twice daily, Aldactone 100 mg daily, Protonix, Lopressor and magnesium. ALLERGIES: MORPHINE. SOCIAL HISTORY: No smoking. Quit drinking 34 days ago. FAMILY HISTORY: Unremarkable. REVIEW OF SYSTEMS: CARDIOPULMONARY: No chest pain or shortness of breath. GENITOURINARY: No dysuria or hematuria. MUSCULOSKELETAL: Unremarkable. SKIN: Unremarkable. ENDOCRINE: Unremarkable. PSYCHIATRIC: Unremarkable. NEUROLOGY: Unremarkable. ENT/VISION: Unremarkable. CONSTITUTIONAL: No recent weight loss. No fever, chills, night sweats. PHYSICAL EXAMINATION: VITAL SIGNS: Blood pressure 119/72, pulse rate 67, temperature 97.7. HEENT examination unremarkable. Conjunctivae pink. Sclerae anicteric. Oral cavity no lesions. NECK: No JVD or lymph node enlargement. CHEST: Clear to auscultation. HEART: Regular rate and rhythm. ABDOMEN: Soft. Liver and spleen were not palpable. There was no free fluid or shifting dullness noted. EXTREMITIES: No pedal edema. SKIN: No rashes. NEUROLOGIC: Alert and oriented x3. No focal deficits. LABS: WBC 9.7, hemoglobin 11.8, platelets 139. INR is 1.8. T-bilirubin is 3.6, AST is 79, ALT is 27, alkaline phosphatase 113. Ammonia 66. CRP is 10.7. Amylase 184, lipase 372. Today amylase and lipase have normalized. IMPRESSION: 1. Ascites, status post large-volume paracentesis 4 days ago; 2.1 liters of fluid removed. Currently on Lasix 40 mg twice daily and Aldactone 100 mg daily and clinically no evidence of ascites. 2. Alcoholic liver disease with alcoholic cirrhosis of the liver and portal hypertension. He quit drinking about 34 days ago. 3. Upper abdominal pain, mostly in the right upper quadrant and left upper quadrant areas. The patient was noted to have mild nonspecific elevation of amylase and lipase, which has normalized. Doubt pancreatitis. RECOMMENDATIONS: 1. Obtain ultrasound of the abdomen. 2. Increase Lasix to 40 b.i.d. and Aldactone 100 mg daily. 3. Low-salt diet. 4. Continue lactulose for hepatic encephalopathy. 5. Repeat labs in the morning. 6. Will follow with you closely. Thank you for this consultation. MMODL / IJN: [id number] /
[2020-05-14] MEDS ORDERED: FUROSEMIDE 40 MG TAB PO SCH (16:00)
--- NOTE | 2020-05-14 23:32 | P.DS ---
Providers Date of admission: 05/12/20 06:01 Expected date of discharge: 05/14/20 Attending physician: Kulwant Hays Consults: 05/13/20 23:38 Consult Physician Routine Consulting Provider: Blessing Dawn Consult Reason/Comments: Abdominal pain Do you want consulting provider notified?: Yes Primary care physician: Carlos Enrique Crowder [facility] Course: Chief Complaint: Abdominal pain History of presenting complaint: This is a 39-year-old patient of Dr. Crowder. Patient has been drinking alcohol for several years. Patient was here in January 2020. EGD that time showed moderate portal hypertensive gastropathy. Patient has portal hypertension, prolonged pro time,. Patient stopped drinking over a month ago. Patient 0.6 days ago. The abdominal distention. 2.1 L of paracentesis was carried out. Patient is feeling well. Patient has been doing well in terms of maintaining fluid restriction, low-salt diet. No more drinking. Patient now presents with a in both the flanks. Pain does not radiate. Patient's pain does increase with eating. Also been having some joint pains and knee and right ankle. Patient had one episode of dark urine. No fever no chills. No respiratory symptoms Admitted with abdominal pain. No fever no chills. Some elevation in amylase and lipase. Could be low-grade pancreatitis. No white count. Today-patient was seen by Dr. Jass Dawn. I discussed with her. Okay to discharge patient. Decision was made to discontinue the antibiotics. Encouraged diet. Dose of Lasix increased. Consultation: Dr. Jass Dawn GI Past medical history to include: Chronic alcoholic liver disease, GI bleed from portal gastropathy, thrombocytopenia, alcohol-induced neuropathy, hypertension Social history: Drinking alcohol for many years. Stopped in 2020 Lives with his friend. No smoking. Physical examination: VITAL SIGNS: 97.7, 16 7, 15, 119/72, 97% room air GENERAL: BMI 28.6, laying in bed awake EYES: Pupils equal. Conjunctiva mild icterus. HEENT: External appearance of nose and ears normal, oral cavity grossly normal. NECK: JVD not raised; masses not palpable. HEART: First and second heart sounds are normal; cross edema. LUNGS: Respiratory rate normal; clear to auscultation. ABDOMEN: Soft, minimal tenderness . No guarding rigidity. Abdomen is nondistended, liver spleen not palpable, no masses palpable. PSYCH: Alert and oriented x3; mood and affect normal. INVESTIGATIONS, reviewed in the clinical context: Uric acid 6.1 WBC 9.7 hemoglobin 11.8 platelets 139 potassium 3.5 crit 0.78 total bilirubin 3.6 AST 79 ALT 27 ammonia 66 amylase 182 lipase 372 UA positive for protein, WBC 42 hyaline cast 101 Coronavirus [PCR]-not detected Assessment and plan: -. Possible mild pancreatitis. Improved -Alcoholic liver disease. -Portal hypertension on beta unique -Severe hypoalbuminemia from liver disease -Prolonged pro time from liver disease. Supplemental vitamin K -Portal gastropathy -Hyperbilirubinemia -Essential hypertension -Joint pains in both the knees and right ankle. Uric acid 6.1. Likely arthralgia Disposition: Home Patient Condition at Discharge: Fair Plan - Discharge Summary Discharge Rx Participant: No New Discharge Prescriptions: Continue Pantoprazole Sodium [Protonix] 40 mg PO AC-BID Spironolactone [Aldactone] 100 mg PO DAILY #30 tab Metoprolol Tartrate [Lopressor] 50 mg PO BID #60 tab Magnesium 200 mg PO Q48H #30 tablet Changed Furosemide [Lasix] 40 mg PO BID #60 tab Discharge Medication List Pantoprazole Sodium [Protonix] 40 mg PO AC-BID 04/11/20 [History] Metoprolol Tartrate [Lopressor] 50 mg PO BID #60 tab 04/12/20 [Rx] Spironolactone [Aldactone] 100 mg PO DAILY #30 tab 04/12/20 [Rx] Magnesium 200 mg PO Q48H #30 tablet 05/07/20 [Rx] Furosemide [Lasix] 40 mg PO BID #60 tab 05/14/20 [Rx] Follow up Appointment(s)/Referral(s): Carlos Enrique Crowder MD [Primary Care Provider] - 1-2 days Luisito Cook MD [STAFF PHYSICIAN] - 2 Weeks Activity/Diet/Wound Care/Special Instructions: bmp - 5 days Discharge Disposition: HOME SELF-CARE
== END 2020-05-14 18:21 | disposition home or self-care (01) | DRG 439 ==
LOC: EC 01:23 → 4SSUR 06:01
PROVIDERS: ADMIT Hospitalist; ATTEND Hospitalist
DX: K85.90 Acute pancreatitis without necrosis or infection, unspecified (principal); N39.0 Urinary tract infection, site not specified; K76.6 Portal hypertension; K70.31 Alcoholic cirrhosis of liver with ascites; E88.09 Other disorders of plasma-protein metabolism, not elsewhere classified; G62.1 Alcoholic polyneuropathy; F10.20 Alcohol dependence, uncomplicated; Z20.822 Contact with and (suspected) exposure to COVID-19; K76.0 Fatty (change of) liver, not elsewhere classified; K31.89 Other diseases of stomach and duodenum; I10 Essential (primary) hypertension; M25.50 Pain in unspecified joint; Z79.899 Other long term (current) drug therapy; Z88.5 Allergy status to narcotic agent; Z87.39 Personal history of other diseases of the musculoskeletal system and connective tissue; Z98.890 Other specified postprocedural states; Z82.49 Family history of ischemic heart disease and other diseases of the circulatory system; Z82.3 Family history of stroke
CPT/HCPCS: 36415; 76700; 80053; 81001; 82140; 82150; 83605; 83690; 84550; 85025; 85610; 85730; 86140; 87086; 87635; 96365; 96375; 99284

== ENCOUNTER 2020-06-13 09:07 | Day surgery (SDC) | payer OTHER ==
[2020-06-13 09:38] LABS: African American GFR (CKD) >90 (>60 ml/min/1.73 sqM); Non-African American GFR(CKD) >90 (>60 ml/min/1.73 sqM)
[2020-06-13 09:41] LABS: Anisocytosis Slight; HCT 33.8 % (39.0-53.0); HGB 11.1 gm/dL (13.0-17.5); MCH 29.9 pg (25.0-35.0); MCHC 32.7 g/dL (31.0-37.0); MCV 91.4 fL (80.0-100.0); Mean Platelet Volume 8.3; WBC 7.5 k/uL (3.8-10.6)
[2020-06-13 09:54] LABS: INR 2.1 (<1.2); Prothrombin Time 20.4 sec (9.0-12.0)
[2020-06-13 10:00] LABS: Platelet Count 96 k/uL (150-450)
[2020-06-13] MEDS: ALBUMIN HUMAN 25% 50 ML in EMPTY BAG 1 BAG IVPB SCH ×3 (12:39→12:51)
[2020-06-13 13:08] VITALS: TEMP 98
--- NOTE | 2020-06-13 14:05 | US ---
EXAMINATION TYPE: US paracentesis abd w/image DATE OF EXAM: 06/13/2020 COMPARISON: NONE HISTORY: Ascites. PROCEDURE: Maximal barrier technique was utilized. The skin overlying a suitable pocket of fluid was localized with ultrasound and the overlying skin was prepped and draped. Ultrasound was utilized with sterile technique. Lidocaine was used for local anesthesia and a skin obey made with a scalpel. Catheter was advanced under direct ultrasound guidance into a suitable pocket of fluid and approximately 5.3 liter s of serous fluid were removed. Catheter was withdrawn and hemostasis achieved. There is no immedia te complication; the patient is discharged in stable condition. IMPRESSION: STATUS POST ULTRASOUND GUIDED PARACENTESIS FOR PALLIATION OF ASCITES. THIS PROCEDURE WA S PERFORMED BY THE UNDERSIGNED.
[2020-06-13 14:16] VITALS: BP 103/57; PULSE 76; RESP 18
== END 2020-06-13 14:21 | disposition home or self-care (01) ==
LOC: RADPROMAIN 09:07
PROVIDERS: ATTEND Internal Medicine
DX: R18.8 Other ascites (principal)
CPT/HCPCS: 82565; 85027; 85610; 36415; 49083; P9059; P9047

== ENCOUNTER 2020-06-24 04:30 | Observation (INO) | payer OTHER ==
--- NOTE | 2020-06-24 05:11 | ED ---
Recheck HPI - General Chief Complaint: Extremity Problem,Nontraumatic Stated Complaint: Swelling,Bloated Time Seen by Provider: 06/24/20 05:10 Source: patient, family, RN notes reviewed, old records reviewed Mode of arrival: ambulatory Limitations: no limitations - History of Present Illness Initial Comments: This is a 31-year-old male who admits to recurrent drinking coming in with liver disease. Patient has history of alcoholic cirrhosis and has increasing swelling and shortness of breath currently. Patient has diffuse body aches and pains MD Complaint: abnormal lab (Significant swelling) -: days(s) Returns Today for: persistent/worsening pain related to initial visit Symptoms Since Prior Visit: worsening pain Associated Symptoms: none Treatments Prior to Arrival: other (none) - Related Data Home Medications Medication Instructions Recorded Confirmed Pantoprazole Sodium [Protonix] 40 mg PO AC-BID 04/11/20 06/24/20 Furosemide [Lasix] 40 mg PO BID 06/24/20 06/24/20 Previous Rx's Medication Instructions Recorded Metoprolol Tartrate [Lopressor] 50 mg PO BID #60 tab 04/12/20 Spironolactone [Aldactone] 100 mg PO DAILY #30 tab 04/12/20 Magnesium 200 mg PO Q48H #30 tablet 05/07/20 Multivitamins, Thera [Multivitamin 1 each PO DAILY tab 06/25/20 (formulary)] Thiamine [Vitamin B-1] 100 mg PO DAILY #30 tab 06/25/20 Allergies Allergy/AdvReac Type Severity Reaction Status Date / Time morphine AdvReac Hallucinati Verified 06/24/20 06:36 ons Review of Systems ROS Statement: Those systems with pertinent positive or pertinent negative responses have been documented in the HPI. ROS Other: All systems not noted in ROS Statement are negative. Past Medical History Past Medical History: Hypertension, Liver Disease Additional Past Medical History / Comment(s): fatty liver disease, Alcohol abuse, cirrhosis, ascites History of Any Multi-Drug Resistant Organisms: None Reported Past Surgical History: Orthopedic Surgery Additional Past Surgical History / Comment(s): rt hand, 2 lt shoulder, large volume paracentesis Past Anesthesia/Blood Transfusion Reactions: No Reported Reaction Past Psychological History: No Psychological Hx Reported Smoking Status: Never smoker Past Alcohol Use History: None Reported, Daily, Heavy Past Drug Use History: None Reported - Past Family History Mother Family Medical History: Hypertension Father Family Medical History: CVA/TIA General Exam Limitations: no limitations General appearance: alert, in no apparent distress Head exam: Present: atraumatic, normocephalic, normal inspection Eye exam: Present: normal appearance, PERRL, EOMI. Absent: scleral icterus, conjunctival injection, periorbital swelling ENT exam: Present: normal exam, mucous membranes moist Neck exam: Present: normal inspection. Absent: tenderness, meningismus, lymphadenopathy Respiratory exam: Present: normal lung sounds bilaterally. Absent: respiratory distress, wheezes, rales, rhonchi, stridor Cardiovascular Exam: Present: regular rate, normal rhythm, normal heart sounds. Absent: systolic murmur, diastolic murmur, rubs, gallop, clicks GI/Abdominal exam: Present: soft, normal bowel sounds. Absent: distended, tenderness, guarding, rebound, rigid Extremities exam: Present: normal inspection, full ROM, normal capillary refill. Absent: tenderness, pedal edema, joint swelling, calf tenderness Back exam: Present: normal inspection Neurological exam: Present: alert, oriented X3, CN II-XII intact Psychiatric exam: Present: normal affect, normal mood Skin exam: Present: warm, dry, intact, normal color. Absent: rash Course Vital Signs 06/24/20 06/24/20 06/24/20 04:40 05:43 06:00 Temperature 97.8 F Pulse Rate 80 76 77 Pulse Rate [ Pulse Oximetery ] Respiratory 20 18 18 Rate Blood Pressure 126/77 108/68 108/75 O2 Sat by Pulse 98 99 92 L Oximetry 06/24/20 06/24/20 08:00 08:53 Temperature Pulse Rate 89 Pulse Rate [ 84 Pulse Oximetery ] Respiratory 16 18 Rate Blood Pressure 114/76 O2 Sat by Pulse 98 Oximetry - Reevaluation(s) Reevaluation #1: Medical record is reviewed Symptoms improved here in the ER Patient informed of results and questions answered Medical Decision Making - Medical Decision Making 39 male be admitted for therapeutic paracentesis - Lab Data Result diagrams: 06/24/20 05:24 06/24/20 05:24 Disposition Clinical Impression: Ascites, Acute alcoholic hepatitis, Decompensated hepatic cirrhosis Disposition: ADMITTED IP TO THIS HOSP Condition: Good Is patient prescribed a controlled substance at d/c from ED?: No
[2020-06-24] MEDS ORDERED: PANTOPRAZOLE 40 MG/10 ML VIAL IVP STA (05:20)
[2020-06-24] MEDS ORDERED: ONDANSETRON 4 MG/2 ML VIAL IVP STA (05:20)
[2020-06-24] MEDS ORDERED: HYDROmorphone 1 MG/ML 1 ML SYRINGE IVP STA (05:21)
[2020-06-24 05:47] LABS: Anisocytosis Slight; Basophils # (A) 0.1 k/uL (0-0.2); Basophils % (A) 2 %; Eosinophils # (A) 0.3 k/uL (0-0.7); Eosinophils % (A) 4 %; HCT 32.9 % (39.0-53.0); HGB 10.5 gm/dL (13.0-17.5); Lymphocytes # (A) 3.2 k/uL (1.0-4.8); Lymphocytes % (A) 41 %; MCHC 31.9 g/dL (31.0-37.0); MCV 94.1 fL (80.0-100.0); Macrocytosis Slight; Mean Platelet Volume 8.6; Monocytes # (A) 0.9 k/uL (0-1.0); Monocytes % (A) 12 %; Neutrophils # (A) 2.9 k/uL (1.3-7.7); Neutrophils % (A) 37 %; RDW 19.4 % (11.5-15.5); WBC 7.7 k/uL (3.8-10.6)
[2020-06-24 05:51] LABS: INR 1.6 (<1.2); Partial Thromboplastin Time 28.5 sec (22.0-30.0); Prothrombin Time 15.9 sec (9.0-12.0)
[2020-06-24 05:52] LABS: ALT 31 U/L (4-49); AST 185 U/L (17-59); African American GFR (CKD) >90 (>60 ml/min/1.73 sqM); Albumin 2.9 g/dL (3.5-5.0); Alkaline Phosphatase 171 U/L (38-126); Amylase 152 U/L (30-110); Anion Gap 7 mmol/L; Blood Urea Nitrogen 11 mg/dL (9-20); Calcium 8.1 mg/dL (8.4-10.2); Carbon Dioxide 29 mmol/L (22-30); Chloride 95 mmol/L (98-107); Glucose 74 mg/dL (74-99); Lipase 930 U/L (23-300); Non-African American GFR(CKD) >90 (>60 ml/min/1.73 sqM); Potassium 3.1 mmol/L (3.5-5.1); Sodium 131 mmol/L (137-145); Total Bilirubin 2.5 mg/dL (0.2-1.3); Total Protein 8.1 g/dL (6.3-8.2)
[2020-06-24 05:55] LABS: Platelet Count 89 k/uL (150-450)
[2020-06-24 05:59] LABS: Alcohol 288 mg/dL
--- NOTE | 2020-06-24 06:05 | P.HPIM ---
History of Present Illness H&P Date: 06/24/20 The patient is a 39 yo M with a PMH of alcoholic cirrhosis, portal hypertension, recurrent ascites, and continued alcohol abuse who presented to the emergency room with complaints of abdominal distention and discomfort. Patient notes that he previously had to get a paracentesis once a month but he feels that the fluid buildup this time after only 10 days. He last received a paracentesis as an ou tpatient 10 days ago. He otherwise denied any additional complaints. He reports compliance with his Lasix, fluid restriction, and low salt diet at home. Patient notes that he started drinking again 2-3 weeks ago after 1 month of sobriety. He currently is drinking 6-10 beers daily. He denied chest discomfort, fever, chills, shortness of breath, cough, nausea, vomiting, diarrhea. Laboratory evaluation was remarkable for hemoglobin 10.5, platelets 89, INR 1.6, sodium 131, potassium 3.1, AST 185, alk phos 171, ammonia 61, and serum alcohol level 288 with lipase 930. Review of Systems Pertinent positives and negatives as discussed in HPI, a complete review of syst ems was performed and all other systems are negative. Past Medical History Past Medical History: Hypertension, Liver Disease Additional Past Medical History / Comment(s): fatty liver disease, Alcohol abuse, cirrhosis, ascites History of Any Multi-Drug Resistant Organisms: None Reported Past Surgical History: Orthopedic Surgery Additional Past Surgical History / Comment(s): rt hand, 2 lt shoulder, large volume paracentesis Past Anesthesia/Blood Transfusion Reactions: No Reported Reaction Past Psychological History: No Psychological Hx Reported Smoking Status: Never smoker Past Alcohol Use History: None Reported, Daily, Heavy Past Drug Use History: None Reported - Past Family History Mother Family Medical History: Hypertension Father Family Medical History: CVA/TIA Medications and Allergies Home Medications Medication Instructions Recorded Confirmed Type Pantoprazole Sodium [Protonix] 40 mg PO AC-BID 04/11/20 06/19/20 History Metoprolol Tartrate [Lopressor] 50 mg PO BID #60 tab 04/12/20 06/19/20 Rx Spironolactone [Aldactone] 100 mg PO DAILY #30 tab 04/12/20 06/19/20 Rx Magnesium 200 mg PO Q48H #30 tablet 05/07/20 06/19/20 Rx Furosemide [Lasix] 40 mg PO BID #60 tab 05/14/20 06/19/20 Rx Allergies Allergy/AdvReac Type Severity Reaction Status Date / Time morphine AdvReac Hallucinati Verified 06/24/20 04:46 ons Physical Exam Vitals: Vital Signs Temp Pulse Resp BP Pulse Ox 06/24/20 05:43 76 18 108/68 99 06/24/20 04:40 97.8 F 80 20 126/77 98 Intake and Output 06/23/20 06/23/20 06/24/20 14:59 22:59 06:59 Other: Weight 95.254 kg General: non toxic, no distress, appears older than stated age Derm: Mildly jaundiced, no unusual rashes/lesions no unusual ecchymoses, warm, dry Head: atraumatic, normocephalic, symmetric Eyes: EOMI, no lid lag, mild scleral icterus, pupils equal round reactive to light ENT: Nose and ears atraumatic, no thrush, no pharyngeal erythema Neck: No thyromegaly, no cervical lymphadenopathy, trachea midline, supple Mouth: no lip lesion, mucus membranes moist Cardiovascular: S1S2 reg, no murmur, positive posterior tibial pulse bilateral, 2+ bilateral lower extremity pitting edema, no calf tenderness noted, capillary refill less than 2 seconds Lungs: CTA bilateral, no rhonchi, no rales , no accessory muscle use Abdominal: Distended with fluid thrill noted, nontender to palpation, no gu arding, normal bowel sounds Ext: no gross muscle atrophy, muscle strength 5 out of 5 in all 4 extremities grossly, no contractures, Neuro: CN II-XI grossly intact, light touch intact all 4 extremities, finger to nose within normal limits, Psych: Alert, oriented, appropriate affect Results CBC & Chem 7: 06/24/20 05:24 06/24/20 05:24 Labs: Abnormal Lab Results - Last 24 Hours (Table) 06/24/20 06/24/20 Range/Units 05:24 05:24 PT 15.9 H (9.0-12.0) sec INR 1.6 H (<1.2) Ammonia 61 H (<30) umol/L Assessment and Plan Plan: Alcoholic liver cirrhosis with asciteshypookalem -IR consult for paracentesis -Hold off on diuretics in setting of mild pancreatitis Hypokalemia -Replace and monitor Elevated lipase, likely mild pancreatitis due to on-going EtOH abuse -Avoid additional IVFs at this time due to persistent ascites -Hold off on diuretics Elevated INR, thrombocytopenia -Likely secondary to liver disease Normocytic anemia -Similar to baseline Abnormal LFTs, likely secondary to ongoing alcohol abuse -Strongly advised on importance of cessation DVT prophylaxis -IPCDs The patient is admitted with an anticipated less than 2 midnight stay for evaluation of ascites CODE STATUS: Full Code Discussed with: Patient Anticipated discharge date: in am Anticipated discharge place: home A total of 35 minutes was spent on the care of this complex patient more than 50% of the time was spent in counseling and care coordination.
[2020-06-24] MEDS: POTASSIUM CHLORIDE ER 20 MEQ TAB.ER PO SCH ×2 (08:53→10:12)
[2020-06-24] MEDS ORDERED: FUROSEMIDE 40 MG TAB PO SCH (09:00)
[2020-06-24] MEDS ORDERED: NON FORMULARY DRUG (Spironolactone [Aldactone] 100 MG Tablet) PO SCH (09:00)
[2020-06-24] MEDS: THIAMINE 100 MG TAB PO SCH (10:11)
[2020-06-24] MEDS: MULTIVITAMINS, THERA 1 EACH TAB PO SCH (10:13)
--- NOTE | 2020-06-24 16:06 | P.PN ---
Progress Note - Text Progress Note Date: 06/24/20 Patient seen and examined at bedside today. I agree with the assessment and plan as documented by my colleague earlier in the day. Patient is pending paracentesis, however, abdomen is not tense and patient does not appear to be in distress at bedside from pain or dyspnea. We will continue diuretics from tomorrow onwards.
--- NOTE | 2020-06-24 17:37 | US ---
EXAMINATION TYPE: US paracentesis abd w/image DATE OF EXAM: 06/24/2020 COMPARISON: NONE HISTORY: Ascites. PROCEDURE: Maximal barrier technique was utilized. The skin overlying a suitable pocket of fluid was localized with ultrasound and the overlying skin was prepped and draped. Ultrasound was utilized with sterile technique. Lidocaine was used for local anesthesia and a skin obey made with a scalpel. Catheter was advanced under direct ultrasound guidance into a suitable pocket of fluid and approximately 2.4 liter s of serous fluid were removed. Catheter was withdrawn and hemostasis achieved. There is no immedia te complication; the patient is discharged in stable condition. IMPRESSION: STATUS POST ULTRASOUND GUIDED PARACENTESIS FOR PALLIATION OF ASCITES. THIS PROCEDURE WA S PERFORMED BY THE UNDERSIGNED.
[2020-06-24] MEDS: PANTOPRAZOLE 40 MG TABLET PO SCH (18:15)
[2020-06-24] MEDS: FUROSEMIDE 40 MG TAB PO SCH (20:30)
[2020-06-24] MEDS: METOPROLOL TARTRATE 50 MG TAB PO SCH (20:33)
[2020-06-25 05:16] VITALS: RESP 14
[2020-06-25] MEDS: HYDROmorphone 1 MG/ML 1 ML SYRINGE IVP PRN ×2 (05:23→09:06)
[2020-06-25] MEDS ORDERED: LORazepam 2 MG/ML INJ IV PRN ×3 (05:54)
[2020-06-25] MEDS: THIAMINE 100 MG TAB PO SCH (09:18)
[2020-06-25] MEDS: FUROSEMIDE 40 MG TAB PO SCH (09:18)
[2020-06-25] MEDS: MULTIVITAMINS, THERA 1 EACH TAB PO SCH (09:18)
[2020-06-25] MEDS: PANTOPRAZOLE 40 MG TABLET PO SCH (09:18)
[2020-06-25] MEDS: METOPROLOL TARTRATE 50 MG TAB PO SCH (09:18)
[2020-06-25 09:23] VITALS: BP 135/79; PULSE 86; TEMP 98
[2020-06-25] MEDS ORDERED: ONDANSETRON 4 MG/2 ML VIAL IVP STA (11:50)
[2020-06-25] MEDS ORDERED: LORazepam 1 MG TAB PO ONE (12:00)
--- NOTE | 2020-06-25 17:03 | P.DS ---
Providers Date of admission: 06/24/20 05:20 Expected date of discharge: 06/25/20 Attending physician: Juan Murray MD Primary care physician: Carlos Enrique [facility] Course: The patient is a 39 yo M with a PMH of alcoholic cirrhosis, portal hypertension, recurrent ascites, and continued alcohol abuse who presented to the emergency room with complaints of abdominal distention and discomfort. Patient notes that he previously had to get a paracentesis once a month but he feels that the fluid buildup this time after only 10 days. He last received a paracentesis as an outpatient 10 days ago. He otherwise denied any additional complaints. He reports compliance with his Lasix, fluid restriction, and low salt diet at home. Patient notes that he started drinking again 2-3 weeks ago after 1 month of sobriety. He currently is drinking 6-10 beers daily. He denied chest discomfort, fever, chills, shortness of breath, cough, nausea, vomiting, diarrhea. Laboratory evaluation was remarkable for hemoglobin 10.5, platelets 89, INR 1.6, sodium 131, potassium 3.1, AST 185, alk phos 171, ammonia 61, and serum alcohol level 288 with lipase 930. Alcoholic liver cirrhosis with ascites Hypookalemia Mild Pancreatitis -IR consult for paracentesis pulled of 2.1L of fluid. Diuretics were held on admission and continued on discharge. Pts nausea was treated with zofran with relief. Also rec'd ativan for mild withdrawal symptoms. Recommended follow up with GI as outpatient and strongly advised ETOH cessation. Pt was tolerating diet on discharge. Assessment: Gen: awake, alert HEENT: normocephalic, atraumatic, good hearing acuity, moist mucous membranes Resp: good air exchange, breathing comfortably with no accessory muscle use CVS: good distal perfusion x 4, GI: soft, NTTP, ND : no SPT, no CVAT, reis catheter not present MSK: no pitting edema, no clubbing Neuro: non-focal, moving all extremities Psych: cooperative, euthymic mood Patient Condition at Discharge: Good Plan - Discharge Summary Discharge Rx Participant: No New Discharge Prescriptions: New Multivitamins, Thera [Multivitamin (formulary)] 1 each PO DAILY tab Thiamine [Vitamin B-1] 100 mg PO DAILY #30 tab Continue Pantoprazole Sodium [Protonix] 40 mg PO AC-BID Spironolactone [Aldactone] 100 mg PO DAILY #30 tab Metoprolol Tartrate [Lopressor] 50 mg PO BID #60 tab Magnesium 200 mg PO Q48H #30 tablet Furosemide [Lasix] 40 mg PO BID Discharge Medication List Pantoprazole Sodium [Protonix] 40 mg PO AC-BID 04/11/20 [History] Metoprolol Tartrate [Lopressor] 50 mg PO BID #60 tab 04/12/20 [Rx] Spironolactone [Aldactone] 100 mg PO DAILY #30 tab 04/12/20 [Rx] Magnesium 200 mg PO Q48H #30 tablet 05/07/20 [Rx] Furosemide [Lasix] 40 mg PO BID 06/24/20 [History] Multivitamins, Thera [Multivitamin (formulary)] 1 each PO DAILY tab 06/25/20 [Rx] Thiamine [Vitamin B-1] 100 mg PO DAILY #30 tab 06/25/20 [Rx] Follow up Appointment(s)/Referral(s): Carlos Enrique Crowder MD [Primary Care Provider] - 06/28/20 3:15 pm (Per keypuncher please call today to settle issue at office. ) Luisito Cook MD [STAFF PHYSICIAN] - 07/09/20 11:30 am (Pt with repeat paracentesis for liver cirrhosis from ETOH - reported blood in stool with no Hgb drop. Appt with be with Mari Velasco) Patient Instructions/Handouts: Thiamine (By mouth) Activity/Diet/Wound Care/Special Instructions: Activity as tolerated Heart healthy diet Abstain from alcohol Discharge Disposition: HOME SELF-CARE
[2020-06-26] MEDS ORDERED: MAGNESIUM OXIDE 400 MG TAB PO SCH (09:00)
== END 2020-06-25 14:22 | disposition home or self-care (01) ==
LOC: EC 04:30 → 6NMEDSUR 05:20 → 1SOBS 07:59
PROVIDERS: ADMIT Internal Medicine; ATTEND Internal Medicine
DX: K70.31 Alcoholic cirrhosis of liver with ascites (principal); K70.11 Alcoholic hepatitis with ascites; F10.139 Alcohol abuse with withdrawal, unspecified; K76.6 Portal hypertension; K85.90 Acute pancreatitis without necrosis or infection, unspecified; E87.6 Hypokalemia; I10 Essential (primary) hypertension; D69.6 Thrombocytopenia, unspecified; R79.1 Abnormal coagulation profile; D64.9 Anemia, unspecified; K76.0 Fatty (change of) liver, not elsewhere classified; Z79.899 Other long term (current) drug therapy; Z88.5 Allergy status to narcotic agent; Z98.890 Other specified postprocedural states; Z82.49 Family history of ischemic heart disease and other diseases of the circulatory system; Z82.3 Family history of stroke
CPT/HCPCS: 96375 ×2; 96376; 96374; 99284; 36415; 80053; 82140; 82150; 83690; 85025; 85610; 85730; 87635; 49083; G0378 ×3; G0480; J2060; J2405 ×2; J1170 ×2; C9113; 80320

== ENCOUNTER 2020-07-04 12:06 | Day surgery (SDC) | payer OTHER ==
[2020-07-04 12:25] VITALS: BP 130/78; PULSE 80; RESP 16; TEMP 98.1
--- NOTE | 2020-07-04 14:04 | US ---
EXAMINATION TYPE: US discontinued paracentesis DATE OF EXAM: 07/04/2020 CLINICAL HISTORY: Alcoholic cirrhosis of liver with ascites COMPARISON: 06/04/2020 paracentesis. 05/14/2020 abdominal ultrasound FINDINGS: Preprocedure preliminary ultrasound imaging demonstrates very trace ascites within the right lower qu adrant. There is an irregular at least 7 mm echogenicity adherent to the gallbladder wall which is not comple tely evaluated on current exam, and without significant shadowing. IMPRESSION: 1. Very trace ascites within the right lower quadrant. No safe window for paracentesis. Paracentesis canceled. 2. Irregular nonshadowing echogenicity adherent to the gallbladder wall measures at least 7 cm. Find ings may represent gallbladder polyp or adherent sludge. Recommend short-term follow-up dedicated gal lbladder ultrasound for further characterization.
== END 2020-07-04 12:45 | disposition home or self-care (01) ==
LOC: RADPROMAIN 12:06
PROVIDERS: ATTEND Internal Medicine Gastroenterology
DX: K70.31 Alcoholic cirrhosis of liver with ascites (principal); Z53.9 Procedure and treatment not carried out, unspecified reason
CPT/HCPCS: 76705

== ENCOUNTER → 2020-08-02 | Outpatient (CLI) | payer OTHER ==
--- NOTE | 2020-08-05 12:42 | US ---
EXAMINATION TYPE: US liver DATE OF EXAM: 08/02/2020 COMPARISON: None CLINICAL HISTORY: 40-year-old male K70.31 Alcoholic cirrhosis of liver w/ascites. TECHNIQUE: Multiple sonographic images of the right upper quadrant are obtained. FINDINGS: EXAM MEASUREMENTS: Liver Length: 17.8 cm Gallbladder Wall: 0.5 cm CBD: 0.5 cm Right Kidney: 14.3 x 6.4 x 7.6 cm Pancreas: Only a portion of the neck is visualized. Remainder is obscured by bowel gas shadowing. Liver: Borderline in size at 17.8 cm. No focal lesion seen. Gallbladder: Mild circumferential wall thickening with a small focus of comet tail artifact suggesti ng adenomyomatosis. No shadowing calculi or surrounding fluid. No mammographic change. Evidence for sonographic Lugo's sign: No CBD: wnl Right Kidney: No hydronephrosis. IMPRESSION: 1. Borderline hepatomegaly at 17.8 cm. 2. Circumferential gallbladder wall thickening is nonspecific and could be secondary to underlying he patitis. If concern for chronic cholecystitis, HIDA scan can be performed. 3. No biliary ductal dilatation.
== END | disposition home or self-care (01) ==
LOC: RADUSWWP 07:43
PROVIDERS: ATTEND Internal Medicine Gastroenterology
DX: K70.31 Alcoholic cirrhosis of liver with ascites (principal); R16.0 Hepatomegaly, not elsewhere classified
CPT/HCPCS: 76705

== ENCOUNTER 2020-09-16 09:10 | Day surgery (SDC) | payer OTHER ==
[~2020-09-16 09:10] MED LIST: ALBUMIN HUMAN 25% 50 ML in EMPTY BAG 1 BAG IVPB SCH
[2020-09-16 09:39] VITALS: BP 139/85; PULSE 77; RESP 14; TEMP 98.2
[2020-09-16 09:46] LABS: Mean Platelet Volume 8.5; Platelet Count 76 k/uL (150-450)
[2020-09-16 09:51] LABS: INR 1.5 (<1.2); Prothrombin Time 15.1 sec (9.0-12.0)
[2020-09-16 09:56] LABS: African American GFR (CKD) >90 (>60 ml/min/1.73 sqM); Non-African American GFR(CKD) >90 (>60 ml/min/1.73 sqM)
--- NOTE | 2020-09-16 10:41 | US ---
Discontinued paracentesis HISTORY: M70.31 Alcoholic cirrhosis of liver with ascites Ultrasound performed for procedure planning. Small amount of ascites is noted. IMPRESSION: Discontinued paracentesis
== END 2020-09-16 10:22 | disposition home or self-care (01) ==
LOC: RADPROMAIN 09:10
PROVIDERS: ATTEND Internal Medicine Gastroenterology
DX: K70.31 Alcoholic cirrhosis of liver with ascites (principal)
CPT/HCPCS: 36415; 76705; 82565; 85049; 85610

== ENCOUNTER 2021-01-12 20:50 | Inpatient (IN) | payer OTHER ==
--- NOTE | 2021-01-12 22:20 | ED ---
General Adult HPI - General Chief complaint: Extremity Injury, Lower Stated complaint: Ankle swelling & Redness Time Seen by Provider: 01/12/21 21:35 Source: patient, family, RN notes reviewed Mode of arrival: ambulatory - History of Present Illness Initial comments: This is a plesant 40-year-old male jaundiced patient that presents to the emergency room with bilateral lower extremity swelling and left lower extremity pain and redness. Patient states that he just noticed it over the past 2 days. He does have a history of liver disease with ascites, etoh abuse and hyperte nsion. He denies any fevers, vomiting or diarrhea. Patient states that he has gained 40 pounds in the past month. He at times feels short of breath. His most recent paracentesis was 4-6 months ago. He states that he is still drinking and drinks about 12 beers a day. He has had a history of seizures related to not drinking. He states that he had a seizure 2 weeks ago and fell and hit his head. He states that he has bruising to the right side of his head and behind his ear. Does complain of occasional headaches since the injury but denies pain at this time. -: days(s) (2) Location: left, right, lower extremity Severity scale (1-10): 9 Consistency: constant Improves with: immobilization Worsens with: other (palpation) Associated Symptoms: headaches, seizure Treatments Prior to Arrival: none - Related Data Home Medications Medication Instructions Recorded Confirmed Pantoprazole Sodium [Protonix] 40 mg PO AC-BID 04/11/20 09/16/20 Furosemide [Lasix] 40 mg PO BID 06/24/20 09/16/20 Previous Rx's Medication Instructions Recorded Metoprolol Tartrate [Lopressor] 50 mg PO BID #60 tab 04/12/20 Spironolactone [Aldactone] 100 mg PO DAILY #30 tab 04/12/20 Magnesium 200 mg PO Q48H #30 tablet 05/07/20 Multivitamins, Thera [Multivitamin 1 each PO DAILY tab 06/25/20 (formulary)] Thiamine [Vitamin B-1] 100 mg PO DAILY #30 tab 06/25/20 Allergies Allergy/AdvReac Type Severity Reaction Status Date / Time morphine AdvReac Hallucinati Verified 09/16/20 09:35 ons Review of Systems ROS Statement: Those systems with pertinent positive or pertinent negative responses have been documented in the HPI. ROS Other: All systems not noted in ROS Statement are negative. Past Medical History Past Medical History: Hypertension, Liver Disease, Seizure Disorder Additional Past Medical History / Comment(s): fatty liver disease, Alcohol abus e, cirrhosis, ascites History of Any Multi-Drug Resistant Organisms: None Reported Past Surgical History: Orthopedic Surgery Additional Past Surgical History / Comment(s): rt hand, 2 lt shoulder, large volume paracentesis Past Anesthesia/Blood Transfusion Reactions: No Reported Reaction Past Psychological History: No Psychological Hx Reported Smoking Status: Never smoker Past Alcohol Use History: None Reported, Daily, Heavy Past Drug Use History: None Reported - Past Family History Mother Family Medical History: Hypertension Additional Family Medical History / Comment(s): Mother is living. Father Family Medical History: CVA/TIA Additional Family Medical History / Comment(s): Father is living. General Exam General appearance: alert, in no apparent distress Head exam: Present: normocephalic, other (Bruising behind the right ear, tragus and right mormon) Eye exam: Present: EOMI, scleral icterus. Absent: conjunctival injection, periorbital swelling, periorbital tenderness ENT exam: Present: normal exam, mucous membranes dry, normal external ear exam (bruising to right tragus and behind right ear). Absent: normal oropharynx Neck exam: Present: normal inspection. Absent: tenderness, meningismus, full ROM, lymphadenopathy, thyromegaly Respiratory exam: Present: normal lung sounds bilaterally. Absent: respiratory distress, wheezes, rales, rhonchi, stridor, chest wall tenderness, accessory muscle use Cardiovascular Exam: Present: regular rate, normal rhythm, normal heart sounds. Absent: systolic murmur, diastolic murmur, rubs, gallop, clicks GI/Abdominal exam: Present: soft, normal bowel sounds. Absent: distended, tenderness, guarding, rebound, rigid Extremities exam: Present: tenderness, normal capillary refill, pedal edema. Absent: normal inspection, calf tenderness Left Knee exam: Present: swelling Lower Leg exam: Present: tenderness, swelling, abrasion, erythema. Absent: full ROM, laceration Ankle exam: Present: full ROM. Absent: swelling Foot/Toe exam: Present: full ROM, swelling Neurovascular tendon exam: Present: no vascular compromise. Absent: abnormal cap refill, extremity cold to touch, pallor, foot drop Gait: observed and normal Right Lower Leg exam: Present: swelling. Absent: tenderness, erythema Ankle exam: Present: swelling. Absent: tenderness Foot/Toe exam: Present: swelling. Absent: tenderness Neurovascular tendon exam: Absent: no vascular compromise, abnormal cap refill, extremity cold to touch, pallor, foot drop Gait: observed and normal Back exam: Present: normal inspection, full ROM, other (Bruising to the left flank). Absent: CVA tenderness (R), CVA tenderness (L), muscle spasm, paraspinal tenderness, vertebral tenderness, rash noted Neurological exam: Present: alert, oriented X3, normal gait Psychiatric exam: Present: normal affect, normal mood Skin exam: Present: warm, dry, intact, normal color. Absent: rash, cyanosis, diaphoretic Course Vital Signs 01/12/21 21:07 Temperature 98.4 F Pulse Rate 85 Respiratory 18 Rate Blood Pressure 128/71 O2 Sat by Pulse 100 Oximetry Medical Decision Making - Medical Decision Making This is a pleasant 40-year-old male that presents to the emergency room with complaints of bilateral lower extremity swelling and left lower leg redness and pain. He states he just noticed it 2 days ago. He denies any fevers, vomiting or diarrhea. He does have occasional complaints of nausea. He denies any short ness of breath at this time. He did fall 2 weeks ago during a seizure and hit his head. He does have bruising to the tragus and behind his right ear and right mormon. He has been complaining of occasional headaches since the fall. CT brain and C-spine showed no abnormalities, fractures or intracranial hemorrhage. There is no evidence of cerebral edema. There is no mass effect or midline shift. There is no evidence of leukocytosis. However there is erythema to the left lower extremity and patient will be started on antibiotics for cellulitis. His sodium level is 128, his alcohol level is 297. Patient was placed on CiWA precautions. I did speak with Dr. Murray and he will be admitted to the hospital for continuation of care. Case discussed with Dr. Lugo. - Lab Data Result diagrams: 01/12/21 22:28 01/12/21 22:28 Lab Results 01/12/21 01/12/21 01/12/21 Range/Units 22:28 22:28 22:28 WBC 8.8 (3.8-10.6) k/uL RBC 3.34 L (4.30-5.90) m/uL Hgb 10.7 L (13.0-17.5) gm/dL Hct 32.6 L (39.0-53.0) % MCV 97.5 (80.0-100.0) fL MCH 32.1 (25.0-35.0) pg MCHC 32.9 (31.0-37.0) g/dL RDW 14.8 (11.5-15.5) % Plt Count 85 L (150-450) k/uL MPV 8.6 Neutrophils % 58 % Lymphocytes % 23 % Monocytes % 11 % Eosinophils % 2 % Basophils % 1 % Neutrophils # 5.1 (1.3-7.7) k/uL Lymphocytes # 2.1 (1.0-4.8) k/uL Monocytes # 1.0 (0-1.0) k/uL Eosinophils # 0.2 (0-0.7) k/uL Basophils # 0.1 (0-0.2) k/uL Manual Slide Review Performed Target Cells Present PT 17.5 H (9.0-12.0) sec INR 1.8 H (<1.2) Sodium 128 L (137-145) mmol/L Potassium 4.1 (3.5-5.1) mmol/L Chloride 96 L (98-107) mmol/L Carbon Dioxide 23 (22-30) mmol/L Anion Gap 9 mmol/L BUN 7 L (9-20) mg/dL Creatinine 0.61 L (0.66-1.25) mg/dL Est GFR (CKD-EPI)AfAm >90 (>60 ml/min/1.73 sqM) Est GFR (CKD-EPI)NonAf >90 (>60 ml/min/1.73 sqM) Glucose 98 (74-99) mg/dL Calcium 7.8 L (8.4-10.2) mg/dL Total Bilirubin 4.3 H (0.2-1.3) mg/dL AST 228 H (17-59) U/L ALT 38 (4-49) U/L Alkaline Phosphatase 244 H (38-126) U/L Ammonia (<30) umol/L Total Protein 7.9 (6.3-8.2) g/dL Albumin 2.8 L (3.5-5.0) g/dL Amylase 117 H (30-110) U/L Lipase 445 H (23-300) U/L Serum Alcohol 297 H* mg/dL 01/12/21 Range/Units 22:28 WBC (3.8-10.6) k/uL RBC (4.30-5.90) m/uL Hgb (13.0-17.5) gm/dL Hct (39.0-53.0) % MCV (80.0-100.0) fL MCH (25.0-35.0) pg MCHC (31.0-37.0) g/dL RDW (11.5-15.5) % Plt Count (150-450) k/uL MPV Neutrophils % % Lymphocytes % % Monocytes % % Eosinophils % % Basophils % % Neutrophils # (1.3-7.7) k/uL Lymphocytes # (1.0-4.8) k/uL Monocytes # (0-1.0) k/uL Eosinophils # (0-0.7) k/uL Basophils # (0-0.2) k/uL Manual Slide Review Target Cells PT (9.0-12.0) sec INR (<1.2) Sodium (137-145) mmol/L Potassium (3.5-5.1) mmol/L Chloride (98-107) mmol/L Carbon Dioxide (22-30) mmol/L Anion Gap mmol/L BUN (9-20) mg/dL Creatinine (0.66-1.25) mg/dL Est GFR (CKD-EPI)AfAm (>60 ml/min/1.73 sqM) Est GFR (CKD-EPI)NonAf (>60 ml/min/1.73 sqM) Glucose (74-99) mg/dL Calcium (8.4-10.2) mg/dL Total Bilirubin (0.2-1.3) mg/dL AST (17-59) U/L ALT (4-49) U/L Alkaline Phosphatase (38-126) U/L Ammonia 43 H (<30) umol/L Total Protein (6.3-8.2) g/dL Albumin (3.5-5.0) g/dL Amylase (30-110) U/L Lipase (23-300) U/L Serum Alcohol mg/dL Disposition Clinical Impression: Cellulitis, Hyponatremia, Alcohol abuse, Lower extremity edema, Jaundice Disposition: ADMITTED IP TO THIS HOSP Condition: Good Referrals: Carlos Enrique Crowder MD [Primary Care Provider] - 1-2 days Decision Date: 01/12/21 Decision Time: 23:34
[2021-01-12 22:53] LABS: Basophils # (A) 0.1 k/uL (0-0.2); Basophils % (A) 1 %; Eosinophils # (A) 0.2 k/uL (0-0.7); Eosinophils % (A) 2 %; HCT 32.6 % (39.0-53.0); HGB 10.7 gm/dL (13.0-17.5); Lymphocytes # (A) 2.1 k/uL (1.0-4.8); Lymphocytes % (A) 23 %; MCH 32.1 pg (25.0-35.0); MCHC 32.9 g/dL (31.0-37.0); MCV 97.5 fL (80.0-100.0); Mean Platelet Volume 8.6; Monocytes % (A) 11 %; Neutrophils # (A) 5.1 k/uL (1.3-7.7); Neutrophils % (A) 58 %; RBC 3.34 m/uL (4.30-5.90); RDW 14.8 % (11.5-15.5); WBC 8.8 k/uL (3.8-10.6)
[2021-01-12 22:58] LABS: INR 1.8 (<1.2); Prothrombin Time 17.5 sec (9.0-12.0)
--- NOTE | 2021-01-12 23:13 | CT ---
EXAMINATION TYPE: CT brain cspine wo con DATE OF EXAM: 01/12/2021 COMPARISON: None HISTORY: pain. no prior on PACS CT DLP: 1506.6 mGycm Automated exposure control for dose reduction was used. Images obtained of the brain and cervical spine without contrast. Cervical vertebra have normal alignment. Posterior elements are intact. Facet joints are intact. Prev ertebral soft tissues are intact. There is no evidence of a fracture. Ventricles and sulci appear normal. There is no mass effect nor midline shift. There is no sign of in tracranial hemorrhage. Calvarium is intact. There is no evidence of cerebral edema. IMPRESSION: Negative CT scan of the brain. Negative CT scan cervical spine.
[2021-01-12 23:20] LABS: ALT 38 U/L (4-49); AST 228 U/L (17-59); African American GFR (CKD) >90 (>60 ml/min/1.73 sqM); Albumin 2.8 g/dL (3.5-5.0); Alkaline Phosphatase 244 U/L (38-126); Amylase 117 U/L (30-110); Anion Gap 9 mmol/L; Blood Urea Nitrogen 7 mg/dL (9-20); Calcium 7.8 mg/dL (8.4-10.2); Carbon Dioxide 23 mmol/L (22-30); Chloride 96 mmol/L (98-107); Glucose 98 mg/dL (74-99); Lipase 445 U/L (23-300); Non-African American GFR(CKD) >90 (>60 ml/min/1.73 sqM); Potassium 4.1 mmol/L (3.5-5.1); Sodium 128 mmol/L (137-145); Total Bilirubin 4.3 mg/dL (0.2-1.3); Total Protein 7.9 g/dL (6.3-8.2)
[2021-01-12 23:25] LABS: Alcohol 297 mg/dL
[2021-01-12] MEDS ORDERED: THIAMINE 100 MG/ML 2 ML VIAL IM STA (23:29)
[2021-01-12] MEDS ORDERED: NALOXONE 0.4 MG/ML 1 ML VIAL IV PRN (23:34)
[2021-01-12 23:45] LABS: Target Cells Present
[2021-01-12] MEDS ORDERED: SODIUM CHLORIDE 0.9% 1,000 ML IV SCH (23:45)
[2021-01-12 23:46] LABS: Platelet Count 85 k/uL (150-450)
--- NOTE | 2021-01-13 00:14 | US ---
EXAMINATION TYPE: US venous doppler duplex LE DATE OF EXAM: 01/13/2021 12:06 AM COMPARISON: US CLINICAL HISTORY: swelling. Swelling. No hx of DVT. Patient does not take blood thinners. SIDE PERFORMED: Bilateral TECHNIQUE: The lower extremity deep venous system is examined utilizing real time linear array sonog niko with graded compression, doppler sonography and color-flow sonography. VESSELS IMAGED: Common Femoral Vein Deep Femoral Vein Greater Saphenous Vein * Femoral Vein Popliteal Vein Small Saphenous Vein * Proximal Calf Veins (* superficial vessels) Right Leg: No evidence of DVT in veins imaged at this time. Left Leg: No evidence of DVT in veins imaged at this time. Hypoechoic area with hyperechoic center a nd vascular hilum seen in the right groin: 2.6 x 1.5 x 1.1 cm. Color artifact posterior to the knee d ue to edema. IMPRESSION: No evidence of deep vein thrombosis in both legs. There is prominent left inguinal lymph node.
--- NOTE | 2021-01-13 02:50 | P.HPIM ---
History of Present Illness H&P Date: 01/13/21 The patient is a 40-year-old male with a PMH of alcoholic cirrhosis with recurrent ascites along with ongoing alcohol abuse now presents to the emergency room with complaints of bilateral lower extremity swelling along with left lower extremity redness and pain. The patient reports that although he has had this long-standing edema, his left lower extremity became warm and painful over the past 2 days. Patient also states that roughly 2 weeks ago, he had a seizure while trying to cut back on his drinking, at which time he fell, hitting his head behind his right ear as well as his left upper back. He denied any subsequent seizures. He continues to drink 10-12 beers daily. Patient also rep orts having gained nearly 30-40 pounds over the past month. Reports intermittent shortness of breath which she attributes to his ascites worsening. Denied fever, chills, abdominal pain. Denied nausea, vomiting, diarrhea. Denied chest discomfort, palpitations. Lower extremity Doppler in the emergency room was negative for DVT the revealed a prominent left inguinal lymph node. Laboratory evaluation was reviewed and was remarkable for hyponatremia of 128, [place] 85, total bilirubin 4.3, and serum alcohol level of 297. Review of systems: Pertinent positives and negatives as discussed in HPI, a complete review of systems was performed and all other systems are negative. Physical examination: General: Jaundiced male, no distress, appears at stated age, obese Derm: Left lower extremity erythema, tenderness and peeling skin noted from ankle to knee, no unusual ecchymoses, warm, dry Head: atraumatic, normocephalic, symmetric Eyes: EOMI, no lid lag, scleral icterus noted, pupils equal round reactive to light ENT: Nose and ears atraumatic, no thrush, no pharyngeal erythema Neck: No thyromegaly, no cervical lymphadenopathy, trachea midline, supple Mouth: no lip lesion, mucus membranes moist Cardiovascular: S1S2 reg, no murmur, positive posterior tibial pulse bilateral, 3+ bilateral lower extremity pitting edema, capillary refill less than 2 seconds Lungs: CTA bilateral, no rhonchi, no rales , no accessory muscle use Abdominal: soft, nontender to palpation, no guarding, no appreciable organomegaly, normal bowel sounds Ext: no gross muscle atrophy, muscle strength 5 out of 5 in all 4 extremities grossly, no contractures, Neuro: CN II-XI grossly intact, light touch intact all 4 extremities, finger to nose within normal limits, Psych: Alert, oriented, appropriate affect Assessment/plan Left lower extremity cellulitis -Continue with cefazolin -Follow blood cultures Alcoholic cirrhosis with ongoing alcohol abuse -[facility] protocol -Monitor electrolytes daily -Thiamine -Fall, seizure precautions -Continue with home diuretics -Patient reports that he follows with Dr. Dawn as an outpatient Hyponatremia -Likely due to hepatorenal disease -Poor prognostic indicator Abnormal LFTs and elevated lipase -Due to ongoing alcohol abuse -Advised on the importance of cessation Thrombocytopenia -Likely due to ongoing abuse -Monitor for now DVT prophylaxis -None (INR 1.8) The patient is admitted with an anticipated greater than 2 midnight stay for evaluation of LLE cellulitis CODE STATUS: Full Code Discussed with: Patient Anticipated discharge date: 2-[address]: Home Past Medical History Past Medical History: Hypertension, Liver Disease, Seizure Disorder Additional Past Medical History / Comment(s): fatty liver disease, Alcohol abuse, cirrhosis, ascites History of Any Multi-Drug Resistant Organisms: None Reported Past Surgical History: Orthopedic Surgery Additional Past Surgical History / Comment(s): rt hand, 2 lt shoulder, large volume paracentesis Past Anesthesia/Blood Transfusion Reactions: No Reported Reaction Past Psychological History: No Psychological Hx Reported Smoking Status: Never smoker Past Alcohol Use History: None Reported, Daily, Heavy Past Drug Use History: None Reported - Past Family History Mother Family Medical History: Hypertension Additional Family Medical History / Comment(s): Mother is living. Father Family Medical History: CVA/TIA Additional Family Medical History / Comment(s): Father is living. Medications and Allergies Home Medications Medication Instructions Recorded Confirmed Type Pantoprazole Sodium [Protonix] 40 mg PO AC-BID 04/11/20 09/16/20 History Metoprolol Tartrate [Lopressor] 50 mg PO BID #60 tab 04/12/20 09/16/20 Rx Spironolactone [Aldactone] 100 mg PO DAILY #30 tab 04/12/20 09/16/20 Rx Magnesium 200 mg PO Q48H #30 tablet 05/07/20 09/16/20 Rx Furosemide [Lasix] 40 mg PO BID 06/24/20 09/16/20 History Multivitamins, Thera [Multivitamin 1 each PO DAILY tab 06/25/20 09/16/20 Rx (formulary)] Thiamine [Vitamin B-1] 100 mg PO DAILY #30 tab 06/25/20 09/16/20 Rx Allergies Allergy/AdvReac Type Severity Reaction Status Date / Time morphine AdvReac Hallucinati Verified 09/16/20 09:35 ons Physical Exam Vitals: Vital Signs Temp Pulse Resp BP Pulse Ox 01/12/21 21:07 98.4 F 85 18 128/71 100 Intake and Output 01/12/21 01/12/21 01/13/21 14:59 22:59 06:59 Other: Weight 108.862 kg Results CBC & Chem 7: 01/12/21 22:28 01/12/21 22:28 Labs: Abnormal Lab Results - Last 24 Hours (Table) 01/12/21 01/12/21 01/12/21 Range/Units 22:28 22:28 22:28 RBC 3.34 L (4.30-5.90) m/uL Hgb 10.7 L (13.0-17.5) gm/dL Hct 32.6 L (39.0-53.0) % Plt Count 85 L (150-450) k/uL PT 17.5 H (9.0-12.0) sec INR 1.8 H (<1.2) Sodium 128 L (137-145) mmol/L Chloride 96 L (98-107) mmol/L BUN 7 L (9-20) mg/dL Creatinine 0.61 L (0.66-1.25) mg/dL Calcium 7.8 L (8.4-10.2) mg/dL Total Bilirubin 4.3 H (0.2-1.3) mg/dL AST 228 H (17-59) U/L Alkaline Phosphatase 244 H (38-126) U/L Ammonia (<30) umol/L Albumin 2.8 L (3.5-5.0) g/dL Amylase 117 H (30-110) U/L Lipase 445 H (23-300) U/L Serum Alcohol 297 H* mg/dL 01/12/21 Range/Units 22:28 RBC (4.30-5.90) m/uL Hgb (13.0-17.5) gm/dL Hct (39.0-53.0) % Plt Count (150-450) k/uL PT (9.0-12.0) sec INR (<1.2) Sodium (137-145) mmol/L Chloride (98-107) mmol/L BUN (9-20) mg/dL Creatinine (0.66-1.25) mg/dL Calcium (8.4-10.2) mg/dL Total Bilirubin (0.2-1.3) mg/dL AST (17-59) U/L Alkaline Phosphatase (38-126) U/L Ammonia 43 H (<30) umol/L Albumin (3.5-5.0) g/dL Amylase (30-110) U/L Lipase (23-300) U/L Serum Alcohol mg/dL
[2021-01-13 04:15] LABS: Appearance,Urine Clear (Clear); Bilirubin,Urine Negative (Negative); Blood,Urine Negative (Negative); Color,Urine Yellow; Glucose,Urine (UA) Negative (Negative); Ketones,Urine Negative (Negative); Leukocyte Esterase,Urine Negative (Negative); Nitrite,Urine Negative (Negative); Protein,Urine Trace (Negative); Specific Gravity,Urine 1.012 (1.001-1.035)
[2021-01-13 07:00] LABS: HCT 31.5 % (39.0-53.0); HGB 10.4 gm/dL (13.0-17.5); MCH 31.7 pg (25.0-35.0); Mean Platelet Volume 8.8; RBC 3.28 m/uL (4.30-5.90); RDW 15.3 % (11.5-15.5); WBC 7.9 k/uL (3.8-10.6)
[2021-01-13 07:03] LABS: Platelet Count 77 k/uL (150-450)
[2021-01-13 07:21] LABS: ALT 31 U/L (4-49); AST 185 U/L (17-59); African American GFR (CKD) >90 (>60 ml/min/1.73 sqM); Albumin 2.4 g/dL (3.5-5.0); Albumin/Globulin Ratio 0.5; Alkaline Phosphatase 164 U/L (38-126); Anion Gap 8 mmol/L; Blood Urea Nitrogen 5 mg/dL (9-20); Calcium 7.7 mg/dL (8.4-10.2); Carbon Dioxide 24 mmol/L (22-30); Chloride 101 mmol/L (98-107); Globulin 4.7 g/dL; Glucose 95 mg/dL (74-99); Non-African American GFR(CKD) >90 (>60 ml/min/1.73 sqM); Potassium 4.1 mmol/L (3.5-5.1); Sodium 133 mmol/L (137-145); Total Bilirubin 5.3 mg/dL (0.2-1.3); Total Protein 7.1 g/dL (6.3-8.2)
[2021-01-13] MEDS: THIAMINE 100 MG TAB PO SCH ×2 (08:13→17:31)
[2021-01-13] MEDS: LORazepam 2 MG/ML INJ IV PRN ×4 (11:44→23:35)
--- NOTE | 2021-01-13 14:15 | P.PN ---
Subjective Patient is doing fairly well today. No evidence of withdrawal. Patient informed me that he drinks 10-12 beers per day. He is not interested in going to [facility]. Objective - Vital Signs Vital signs: Vital Signs Temp 98.4 F 01/13/21 11:45 Pulse 94 01/13/21 11:45 Resp 19 01/13/21 11:45 BP 145/75 01/13/21 11:45 Pulse Ox 97 01/13/21 11:45 Intake & Output 01/12/21 01/13/21 01/13/21 18:59 06:59 18:59 Weight 108.862 kg 108.862 kg Other: Voiding Method Toilet - Exam General: The patient is awake and alert, in no distress Eye: there is normal conjunctiva bilaterally. Neck: The neck is supple, there is no JVD. Cardiovascular: Normal S1-S2, no S3-S4, no murmurs. Respiratory: Lungs clear to auscultation bilaterally Gastrointestinal: Abdomen is soft, nontender Musculoskeletal: There is significant swelling involving the left lower extremity from the foot all the way to below the knee. There is area of erythema that is warm and tender to touch.. Neurological:. Speech is normal. Skin: Skin is warm and dry - Labs CBC & Chem 7: 01/13/21 06:13 01/13/21 06:13 Labs: Abnormal Lab Results - Last 24 Hours (Table) 01/12/21 01/12/21 01/12/21 Range/Units 22:28 22:28 22:28 RBC 3.34 L (4.30-5.90) m/uL Hgb 10.7 L (13.0-17.5) gm/dL Hct 32.6 L (39.0-53.0) % Plt Count 85 L (150-450) k/uL PT 17.5 H (9.0-12.0) sec INR 1.8 H (<1.2) Sodium 128 L (137-145) mmol/L Chloride 96 L (98-107) mmol/L BUN 7 L (9-20) mg/dL Creatinine 0.61 L (0.66-1.25) mg/dL Calcium 7.8 L (8.4-10.2) mg/dL Total Bilirubin 4.3 H (0.2-1.3) mg/dL AST 228 H (17-59) U/L Alkaline Phosphatase 244 H (38-126) U/L Ammonia (<30) umol/L Albumin 2.8 L (3.5-5.0) g/dL Amylase 117 H (30-110) U/L Lipase 445 H (23-300) U/L Urine Protein (Negative) Serum Alcohol 297 H* mg/dL 01/12/21 01/13/21 01/13/21 Range/Units 22:28 04:04 06:13 RBC 3.28 L (4.30-5.90) m/uL Hgb 10.4 L (13.0-17.5) gm/dL Hct 31.5 L (39.0-53.0) % Plt Count 77 L (150-450) k/uL PT (9.0-12.0) sec INR (<1.2) Sodium (137-145) mmol/L Chloride (98-107) mmol/L BUN (9-20) mg/dL Creatinine (0.66-1.25) mg/dL Calcium (8.4-10.2) mg/dL Total Bilirubin (0.2-1.3) mg/dL AST (17-59) U/L Alkaline Phosphatase (38-126) U/L Ammonia 43 H (<30) umol/L Albumin (3.5-5.0) g/dL Amylase (30-110) U/L Lipase (23-300) U/L Urine Protein Trace H (Negative) Serum Alcohol mg/dL 01/13/21 Range/Units 06:13 RBC (4.30-5.90) m/uL Hgb (13.0-17.5) gm/dL Hct (39.0-53.0) % Plt Count (150-450) k/uL PT (9.0-12.0) sec INR (<1.2) Sodium 133 L (137-145) mmol/L Chloride (98-107) mmol/L BUN 5 L (9-20) mg/dL Creatinine 0.59 L (0.66-1.25) mg/dL Calcium 7.7 L (8.4-10.2) mg/dL Total Bilirubin 5.3 H (0.2-1.3) mg/dL AST 185 H (17-59) U/L Alkaline Phosphatase 164 H (38-126) U/L Ammonia (<30) umol/L Albumin 2.4 L (3.5-5.0) g/dL Amylase (30-110) U/L Lipase (23-300) U/L Urine Protein (Negative) Serum Alcohol mg/dL Assessment and Plan Assessment: The patient is a 40-year-old male with a PMH of alcoholic cirrhosis with recurrent ascites along with ongoing alcohol abuse now presents to the emergency room with complaints of bilateral lower extremity swelling along with left lower extremity redness and pain. Patient was evaluated in the ER and admitted to the hospital for further management of his medical problems noted below. Left lower extremity cellulitis -Continue with cefazolin, I adjusted the dose 2 g every 8 hours -Blood culture negative today -Doppler ultrasound negative for DVT and showing a questionable mass in the left groin. I would consult vascular surgery further evaluation Alcoholic cirrhosis with ongoing alcohol abuse -[facility] protocol -Monitor electrolytes daily -Thiamine -Fall, seizure precautions -Continue with home diuretics -Patient reports that he follows with Dr. Dawn as an outpatient Hyponatremia -Secondary to beer potomania Abnormal LFTs and elevated lipase -Due to alcoholic hepatitis -Advised on the importance of cessation Thrombocytopenia -Likely due to ongoing abuse DVT prophylaxis -Director Cardiac Today, I reviewed his medication list and lab work results. I advised nursing staff to monitor the area of erythema on the left lower extremity. Awaiting vascular surgery recommendation regarding findings on upper ultrasound.
[2021-01-13] MEDS: SPIRONOLACTONE 25 MG TAB PO SCH (14:48)
[2021-01-13] MEDS: FUROSEMIDE 40 MG TAB PO SCH (15:22)
[2021-01-13] MEDS: METOPROLOL TARTRATE 50 MG TAB PO SCH (21:16)
[2021-01-14] MEDS: LORazepam 2 MG/ML INJ IV PRN ×9 (03:23→23:14)
[2021-01-14] MEDS: HYDROcodone/APAP 5-325MG 1 EACH TAB PO PRN ×3 (03:47→13:01)
[2021-01-14 06:54] LABS: African American GFR (CKD) >90 (>60 ml/min/1.73 sqM); Anion Gap 4 mmol/L; Blood Urea Nitrogen 8 mg/dL (9-20); Calcium 8.4 mg/dL (8.4-10.2); Carbon Dioxide 24 mmol/L (22-30); Chloride 103 mmol/L (98-107); Glucose 97 mg/dL (74-99); Magnesium 1.5 mg/dL (1.6-2.3); Non-African American GFR(CKD) >90 (>60 ml/min/1.73 sqM); Potassium 4.1 mmol/L (3.5-5.1); Sodium 131 mmol/L (137-145)
[2021-01-14] MEDS: PANTOPRAZOLE 40 MG TABLET PO SCH (08:14)
[2021-01-14] MEDS: MAGNESIUM OXIDE 400 MG TAB PO SCH (08:14)
[2021-01-14] MEDS: THIAMINE 100 MG TAB PO SCH ×2 (08:15→16:50)
[2021-01-14] MEDS: FUROSEMIDE 40 MG TAB PO SCH ×2 (08:15→16:50)
[2021-01-14] MEDS: METOPROLOL TARTRATE 50 MG TAB PO SCH ×2 (08:15→20:46)
[2021-01-14] MEDS: SPIRONOLACTONE 25 MG TAB PO SCH (08:16)
[2021-01-14] MEDS: MAGNESIUM SULFATE-D5W PMX 1 GM in DEXTROSE/WATER 1 100ML.BAG IVPB SCH ×2 (10:27→12:12)
--- NOTE | 2021-01-14 15:37 | P.GSCN ---
History of Present Illness Consult date: 01/14/21 Reason for Consult: Abnormal US of left groin Requesting physician: Marylin Weber History of present illness: A 40-year-old male with a history of significant alcohol abuse with decompensated cirrhosis of the liver. Patient drinks at least 12 beers a day. He presented to the emergency department with complaints of increased swelling in his lower extremities with increased redness to his left lower extremity. P atient states approximately 2 weeks ago he feels as though he may have had a seizure and he did fall. He does not recall any specific injuries at that time but since then has noticed some increased redness to that of left lower extremity. States that extremity is painful up through the calf. Patient had a lower extremity venous Doppler study that was negative for DVT bilaterally. There was prominent left inguinal lymph node. There was a hypoechoic center and vascular hilum seen in the right groin 2.6 x 1.5 x 1.1 cm. Vascular surgery was consulted for abnormal venous duplex. Patient denies any pain in bilateral groins. Patient has been afebrile. No leukocytosis. Serum alcohol level 297. Currently denies any chest pain, shortness of breath, abdominal pain, nausea or vomiting. Review of Systems 14 point review of systems completed and all pertinent positives and negatives as stated in the HPI. Past Medical History Past Medical History: Hypertension, Liver Disease, Seizure Disorder Additional Past Medical History / Comment(s): fatty liver disease, Alcohol abuse, cirrhosis, ascites History of Any Multi-Drug Resistant Organisms: None Reported Past Surgical History: Orthopedic Surgery Additional Past Surgical History / Comment(s): rt hand, 2 lt shoulder, large volume paracentesis Past Anesthesia/Blood Transfusion Reactions: No Reported Reaction Past Psychological History: No Psychological Hx Reported Additional Psychological History / Comment(s): Pt resides with a friend. He is on a low sodium fluid restriction diet. He is independent. Smoking Status: Never smoker Past Alcohol Use History: None Reported, Daily, Heavy Additional Past Alcohol Use History / Comment(s): Pt states he has cut down to 10-12 beers a day but in the past drank much more than this. Past Drug Use History: None Reported - Past Family History Mother Family Medical History: Hypertension Additional Family Medical History / Comment(s): Mother is living. Father Family Medical History: CVA/TIA Additional Family Medical History / Comment(s): Father is living. Medications and Allergies Home Medications Medication Instructions Recorded Confirmed Type Pantoprazole Sodium [Protonix] 40 mg PO DAILY 04/11/20 01/13/21 History Metoprolol Tartrate [Lopressor] 50 mg PO BID #60 tab 04/12/20 01/13/21 Rx Spironolactone [Aldactone] 100 mg PO DAILY #30 tab 04/12/20 01/13/21 Rx Furosemide [Lasix] 40 mg PO BID 06/24/20 01/13/21 History Thiamine [Vitamin B-1] 100 mg PO DAILY #30 tab 06/25/20 01/13/21 Rx Magnesium 200 mg PO DAILY 01/13/21 01/13/21 History Allergies Allergy/AdvReac Type Severity Reaction Status Date / Time morphine AdvReac Hallucinati Verified 01/13/21 06:54 ons Surgical - Exam Vital Signs Temp Pulse Resp BP Pulse Ox 98.4 F 85 18 128/71 100 01/12/21 21:07 01/12/21 21:07 01/12/21 21:07 01/12/21 21:07 01/12/21 21:07 General appearance: The patient is alert, oriented, appears in no acute distress. HET: Head is normocephalic and atraumatic. Sclera icterus. Neck: Supple without lymphadenopathy. Trachea midline. Heart: S1 S2. Regular rate and rhythm. Lungs: Clear to auscultation. Abdomen: Soft, nontender, nondistended. Extremities: Bilateral lower extremity edema. Left lower extremity with redness and cellulitis up through the calf with an area of induration on the patient patient.. Palpable bilateral pedal pulses. Tender to palpation in the left lower extremity through the calf, no tenderness up through the thigh. No t enderness in bilateral groins. Neurological: No focal deficits. Strength and sensation are grossly intact. Results - Labs 01/13/21 06:13 01/14/21 06:13 Abnormal Lab Results - Last 24 Hours (Table) 01/14/21 Range/Units 06:13 Sodium 131 L (137-145) mmol/L BUN 8 L (9-20) mg/dL Creatinine 0.62 L (0.66-1.25) mg/dL Magnesium 1.5 L (1.6-2.3) mg/dL Microbiology - Last 24 Hours (Table) 01/12/21 22:28 Blood Culture - Preliminary Blood No Growth after 24 hours 01/12/21 22:09 Blood Culture - Preliminary Blood No Growth after 24 hours Diabetes panel 01/14/21 Range/Units 06:13 Sodium 131 L (137-145) mmol/L Potassium 4.1 (3.5-5.1) mmol/L Chloride 103 (98-107) mmol/L Carbon Dioxide 24 (22-30) mmol/L BUN 8 L (9-20) mg/dL Creatinine 0.62 L (0.66-1.25) mg/dL Glucose 97 (74-99) mg/dL Calcium 8.4 (8.4-10.2) mg/dL Calcium panel 01/14/21 Range/Units 06:13 Calcium 8.4 (8.4-10.2) mg/dL Pituitary panel 01/14/21 Range/Units 06:13 Sodium 131 L (137-145) mmol/L Potassium 4.1 (3.5-5.1) mmol/L Chloride 103 (98-107) mmol/L Carbon Dioxide 24 (22-30) mmol/L BUN 8 L (9-20) mg/dL Creatinine 0.62 L (0.66-1.25) mg/dL Glucose 97 (74-99) mg/dL Calcium 8.4 (8.4-10.2) mg/dL Adrenal panel 01/14/21 Range/Units 06:13 Sodium 131 L (137-145) mmol/L Potassium 4.1 (3.5-5.1) mmol/L Chloride 103 (98-107) mmol/L Carbon Dioxide 24 (22-30) mmol/L BUN 8 L (9-20) mg/dL Creatinine 0.62 L (0.66-1.25) mg/dL Glucose 97 (74-99) mg/dL Calcium 8.4 (8.4-10.2) mg/dL - Imaging Comments: Venous duplex reviewed by Dr. Reaves. Images reviewed. Assessment and Plan Assessment: 1. Bilateral lower extremity edema 2. Left lower extremity cellulitis 3. Prominent left inguinal lymph node related to above 4. Alcohol abuse 5. Alcoholic Cirrhosis of the liver Plan: 1. Lower extremity Venous duplex reviewed with no concerns for DVT 2. Continue current medical management 3. Continue broad spectrum antibiotics 4. There is no indication for any vascular surgical intervention. Thank you for this consultation, vascular surgery will sign off. The impression and plan of care has been dictated as directed. Dr. Reaves I performed a history and examination of this patient, discussed the same with the dictator. I agree with the dictator's note ,documented as a scribe. Any additional findings or plans will be noted.
--- NOTE | 2021-01-14 18:14 | P.PN ---
Subjective Patient is doing fairly well today. Left lower extremity swelling and redness is improving. No acute events overnight reported by nursing staff. Objective - Vital Signs Vital signs: Vital Signs Temp 98.7 F 01/14/21 15:01 Pulse 86 01/14/21 15:01 Resp 16 01/14/21 15:01 BP 132/78 01/14/21 15:01 Pulse Ox 97 01/14/21 15:01 Intake & Output 01/13/21 01/14/21 01/14/21 18:59 06:59 18:59 Intake Total 100 200 Balance 100 200 Weight 108.862 kg Intake: Intake, IV Titration 100 Amount ceFAZolin 2 gm In Sodium 100 Chloride 0.9% 50 ml @ 100 mls/hr IVPB Q8HR [facility] Rx# :[id number] Oral 200 Other: Voiding Method Toilet Toilet Urinal # Voids 4 3 - Exam General: The patient is awake and alert, in no distress Eye: there is normal conjunctiva bilaterally. Neck: The neck is supple, there is no JVD. Cardiovascular: Normal S1-S2, no S3-S4, no murmurs. Respiratory: Lungs clear to auscultation bilaterally Gastrointestinal: Abdomen is soft, nontender Musculoskeletal: There is significant swelling involving the left lower extremity from the foot all the way to below the knee. There is area of erythema that is warm and tender to touch.. Neurological:. Speech is normal. Skin: Skin is warm and dry - Labs CBC & Chem 7: 01/13/21 06:13 01/14/21 06:13 Labs: Abnormal Lab Results - Last 24 Hours (Table) 01/14/21 Range/Units 06:13 Sodium 131 L (137-145) mmol/L BUN 8 L (9-20) mg/dL Creatinine 0.62 L (0.66-1.25) mg/dL Magnesium 1.5 L (1.6-2.3) mg/dL Microbiology - Last 24 Hours (Table) 01/12/21 22:28 Blood Culture - Preliminary Blood No Growth after 24 hours 01/12/21 22:09 Blood Culture - Preliminary Blood No Growth after 24 hours Assessment and Plan Assessment: The patient is a 40-year-old male with a PMH of alcoholic cirrhosis with recurrent ascites along with ongoing alcohol abuse now presents to the emergency room with complaints of bilateral lower extremity swelling along with left lower extremity redness and pain. Patient was evaluated in the ER and admitted to the hospital for further management of his medical problems noted below. Left lower extremity cellulitis -Continue with cefazolin, I adjusted the dose 2 g every 8 hours -Blood culture negative today -Doppler ultrasound negative for DVT Alcoholic cirrhosis with ongoing alcohol abuse -[facility] protocol -Monitor electrolytes daily -Thiamine -Fall, seizure precautions -Continue with home diuretics -Patient reports that he follows with Dr. Dawn as an outpatient Hyponatremia -Secondary to beer potomania, improving Hypomagnesemia -Replacement order Abnormal LFTs and elevated lipase -Due to alcoholic hepatitis -Advised on the importance of cessation Thrombocytopenia -Likely due to ongoing abuse DVT prophylaxis -Executive Personal Assistant Today, I reviewed his medication list and lab work results.
[2021-01-14] MEDS ORDERED: chlordiazePOXIDE 25 MG CAP PO STA (21:57)
[2021-01-15] MEDS ORDERED: HALOPERIDOL LACTATE 5 MG/ML 1 ML VIAL IM ONE (00:18)
[2021-01-15] MEDS: LORazepam 2 MG/ML INJ IV PRN (06:10)
[2021-01-15 06:25] LABS: Basophils # (A) 0.1 k/uL (0-0.2); Basophils % (A) 1 %; Eosinophils # (A) 0.2 k/uL (0-0.7); Eosinophils % (A) 3 %; HCT 33.1 % (39.0-53.0); Lymphocytes # (A) 1.6 k/uL (1.0-4.8); Lymphocytes % (A) 21 %; MCH 32.4 pg (25.0-35.0); MCHC 33.1 g/dL (31.0-37.0); MCV 97.8 fL (80.0-100.0); Mean Platelet Volume 8.4; Monocytes # (A) 0.8 k/uL (0-1.0); Monocytes % (A) 11 %; Neutrophils # (A) 4.7 k/uL (1.3-7.7); Neutrophils % (A) 61 %; Platelet Count 109 k/uL (150-450); RBC 3.38 m/uL (4.30-5.90); RDW 15.1 % (11.5-15.5); WBC 7.7 k/uL (3.8-10.6)
[2021-01-15 07:09] LABS: ALT 23 U/L (4-49); AST 133 U/L (17-59); African American GFR (CKD) >90 (>60 ml/min/1.73 sqM); Albumin 2.5 g/dL (3.5-5.0); Albumin/Globulin Ratio 0.5; Alkaline Phosphatase 116 U/L (38-126); Anion Gap 7 mmol/L; Blood Urea Nitrogen 12 mg/dL (9-20); Calcium 8.1 mg/dL (8.4-10.2); Carbon Dioxide 25 mmol/L (22-30); Chloride 100 mmol/L (98-107); Glucose 80 mg/dL (74-99); Magnesium 1.5 mg/dL (1.6-2.3); Non-African American GFR(CKD) >90 (>60 ml/min/1.73 sqM); Potassium 3.6 mmol/L (3.5-5.1); Sodium 132 mmol/L (137-145); Total Bilirubin 7.4 mg/dL (0.2-1.3); Total Protein 7.5 g/dL (6.3-8.2)
[2021-01-15] MEDS: PANTOPRAZOLE 40 MG TABLET PO SCH (08:36)
[2021-01-15] MEDS: MAGNESIUM OXIDE 400 MG TAB PO SCH ×2 (08:36→20:09)
[2021-01-15] MEDS: FUROSEMIDE 40 MG TAB PO SCH ×2 (08:36→16:22)
[2021-01-15] MEDS: THIAMINE 100 MG TAB PO SCH ×2 (08:37→16:22)
[2021-01-15] MEDS: METOPROLOL TARTRATE 50 MG TAB PO SCH ×2 (08:37→20:09)
[2021-01-15] MEDS: SPIRONOLACTONE 25 MG TAB PO SCH (08:37)
--- NOTE | 2021-01-15 10:12 | P.PN ---
Subjective Patient is doing fairly well today. She was court of 6 this morning but was significantly higher last night requiring multiple doses of Ativan. Objective - Vital Signs Vital signs: Vital Signs Temp 99.2 F 01/15/21 07:07 Pulse 97 01/15/21 08:05 Resp 22 01/15/21 07:07 BP 118/75 01/15/21 08:05 Pulse Ox 95 01/15/21 07:07 Intake & Output 01/14/21 01/15/21 01/15/21 18:59 06:59 18:59 Intake Total 1410 100 Balance 1410 100 Intake: Intake, IV Titration 300 Amount Magnesium Sulfate-D5w Pmx 200 1 gm In Dextrose/Water 1 100ml.bag @ 100 mls/hr IVPB Q1H [facility] Rx#: [id number] ceFAZolin 2 gm In Sodium 100 Chloride 0.9% 50 ml @ 100 mls/hr IVPB Q8HR [facility] Rx# :[id number] Oral 1110 100 Other: Voiding Method Toilet Urinal # Voids 3 5 - Exam General: The patient is awake and alert, in no distress Eye: there is normal conjunctiva bilaterally. Neck: The neck is supple, there is no JVD. Cardiovascular: Normal S1-S2, no S3-S4, no murmurs. Respiratory: Lungs clear to auscultation bilaterally Gastrointestinal: Abdomen is soft, nontender Musculoskeletal: There is significant swelling involving the left lower extremity from the foot all the way to below the knee. There is area of e rythema that is warm and tender to touch.. Neurological:. Speech is normal. Skin: Skin is warm and dry - Labs CBC & Chem 7: 01/15/21 06:08 01/15/21 06:07 Labs: Abnormal Lab Results - Last 24 Hours (Table) 01/15/21 01/15/21 Range/Units 06:07 06:08 RBC 3.38 L (4.30-5.90) m/uL Hgb 11.0 L (13.0-17.5) gm/dL Hct 33.1 L (39.0-53.0) % Plt Count 109 L (150-450) k/uL Sodium 132 L (137-145) mmol/L Calcium 8.1 L (8.4-10.2) mg/dL Magnesium 1.5 L (1.6-2.3) mg/dL Total Bilirubin 7.4 H (0.2-1.3) mg/dL AST 133 H (17-59) U/L Albumin 2.5 L (3.5-5.0) g/dL Microbiology - Last 24 Hours (Table) 01/12/21 22:28 Blood Culture - Preliminary Blood No Growth after 48 hours 01/12/21 22:09 Blood Culture - Preliminary Blood No Growth after 48 hours Assessment and Plan Assessment: The patient is a 40-year-old male with a PMH of alcoholic cirrhosis with recurrent ascites along with ongoing alcohol abuse now presents to the emergency room with complaints of bilateral lower extremity swelling along with left lower extremity redness and pain. Patient was evaluated in the ER and admitted to the hospital for further management of his medical problems noted below. Left lower extremity cellulitis -Continue with cefazolin, I adjusted the dose 2 g every 8 hours -Left lower extremity is not improving clinically. Patient was seen and evaluated by vascular surgery, no intervention recommended. -Consult infectious disease for further evaluation -Blood culture negative today -Doppler ultrasound negative for DVT Alcoholic cirrhosis with ongoing alcohol abuse -[facility] protocol -Monitor electrolytes daily -Thiamine -Fall, seizure precautions -Continue with home diuretics -Patient reports that he follows with Dr. Dawn as an outpatient Hyponatremia -Secondary to beer potomania, improving Hypomagnesemia -Replacement ordered Abnormal LFTs and elevated lipase -Due to alcoholic hepatitis -Advised on the importance of cessation Thrombocytopenia -Likely due to ongoing abuse DVT prophylaxis -Gantry Rigger Today, I reviewed his medication list and lab work results.
[2021-01-15] MEDS: MAGNESIUM SULFATE-D5W PMX 1 GM in DEXTROSE/WATER 1 100ML.BAG IVPB SCH ×2 (11:08→12:40)
[2021-01-15] MEDS ORDERED: LIDOCAINE 1% INJ 10MG/ML (20 ML MDV) SQ STA (16:03)
--- NOTE | 2021-01-15 16:09 | P.PN ---
Subjective Progress Note Date: 01/15/21 Patient seen and examined. No complaints. He overall feels better Objective - Vital Signs Vital signs: Vital Signs Temp 98.3 F 01/15/21 14:31 Pulse 84 01/15/21 14:31 Resp 18 01/15/21 14:31 BP 113/66 01/15/21 14:31 Pulse Ox 97 01/15/21 14:31 Intake & Output 01/14/21 01/15/21 01/15/21 18:59 06:59 18:59 Intake Total 1410 100 Balance 1410 100 Intake: Intake, IV Titration 300 Amount Magnesium Sulfate-D5w Pmx 200 1 gm In Dextrose/Water 1 100ml.bag @ 100 mls/hr IVPB Q1H [facility] Rx#: [id number] ceFAZolin 2 gm In Sodium 100 Chloride 0.9% 50 ml @ 100 mls/hr IVPB Q8HR [facility] Rx# :[id number] Oral 1110 100 Other: Voiding Method Toilet Urinal # Voids 3 5 - Exam Gen.a pleasant cooperative male in no acute distress. HEENT is normocephalic atraumatic, extraocular motion intact. Heart appears regular. Lungs are clear. Abdomen is soft. Left lower extremity with erythema. There is a pointed area were there is a mild amount of fluctuance in the central portion of the cellulitis. No. Drainage of this point - Labs CBC & Chem 7: 01/15/21 06:08 01/15/21 06:07 Labs: Abnormal Lab Results - Last 24 Hours (Table) 01/15/21 01/15/21 Range/Units 06:07 06:08 RBC 3.38 L (4.30-5.90) m/uL Hgb 11.0 L (13.0-17.5) gm/dL Hct 33.1 L (39.0-53.0) % Plt Count 109 L (150-450) k/uL Sodium 132 L (137-145) mmol/L Calcium 8.1 L (8.4-10.2) mg/dL Magnesium 1.5 L (1.6-2.3) mg/dL Total Bilirubin 7.4 H (0.2-1.3) mg/dL AST 133 H (17-59) U/L Albumin 2.5 L (3.5-5.0) g/dL Microbiology - Last 24 Hours (Table) 01/12/21 22:28 Blood Culture - Preliminary Blood No Growth after 48 hours 01/12/21 22:09 Blood Culture - Preliminary Blood No Growth after 48 hours Assessment and Plan Assessment: Left lower extremity cellulitis Likely abscess Plan: We'll plan to go ahead with a bedside I&D of his left lower extremity and obtained cultures.
[2021-01-15] MEDS: HYDROcodone/APAP 5-325MG 1 EACH TAB PO PRN (16:22)
--- NOTE | 2021-01-15 16:30 | P.OP ---
Date of Procedure: 01/15/21 Description of Procedure: Preoperative diagnosis: Left lower extremity cellulitis with abscess Postoperative diagnosis: Same Procedure: Incision and drainage of left lower extremity abscess Surgeon: Michelle High D.O. EBL: Less than 10 mL IV fluids: None Urine output: [Not measured] Drains: [None] Complications: [None immediately apparent] Condition: [Stable] Operative indication and findings: [Patient is a 40-year-old male with severe left lower extremity cellulitis that has had an area of fluctuance has come to a head. It was decided go forward with incision and drainage. Risks and benefits were discussed, he seemingly understood and was willing to proceed as such] Procedure in detail: [The left lower extremity was prepped and draped in usual fashion. A preprocedure timeout was performed with all parties in agreement. Verbal consent was obtained the patient at the time of the procedure. The area of greatest fluctuance were anesthetized 1% lidocaine plain. An 11 blade scalpel was used to incise the area of greatest fluctuance in longitudinal fashion. There was expression of purulent drainage. A culture was obtained. There is then copiously irrigated. The cavity itself measured approximately 2 cm x 2 cm. Any loculations are broken down digitally. It was again irrigated and a wet-to-dry dressing was placed. A wrap was placed. The patient tolerated the procedure well.]
[2021-01-15] MEDS ORDERED: VANCOMYCIN IV PER PHARMACY 1 EACH MISC MISCELLANE PRN (23:38)
--- NOTE | 2021-01-15 23:38 | P.CONS ---
History of Present Illness - Reason for Consult Consult date: 01/15/21 left leg abscess Requesting physician: Marylin Weber - Chief Complaint left leg swelling and redness x 4 days - History of Present Illness History of present illness : Patient is a 40-year-old male presenting to the ER 3 days ago for evaluation of left lower extremity swelling and redness symptom has been going on for about 2 days before presentation the hospital patient denies having any history of any trauma or fall patient on presentation to the hospital was afebrile he did have low-grade fever 100.2 at degrees today patient did have a normal white count with no left shift creatinine was normal AST ALT mildly elevated serum alcohol level was 297 blood culture (currently pending patient has been treated with IV cefazolin infectious disease was consu lted this morning for further management of antibiotic therapy as apparently the patient did not have significant improvement as far as his left leg cellulitis is concerned and apparently the patient has developed an area of fluctuation and concern for underlying abscess for the patient scheduled to undergo bedside I&D Review of system: CONSTITUTIONAL: Positive for weakness along with the fever. EYES: No complaint. ENT: No complaint. RESPIRATORY: No complaint. CARDIOVASCULAR: No complaint. GENITOURINARY: No complaint. GASTROINTESTINAL: No complaint. MUSCULOSKELETAL: As per history of present illness. INTEGUMENTARY: No complaint. PSYCHOLOGIC: No complaint. ENDOCRINE: No complaint. NEUROLOGIC: No complaint. Past medical history : Reviewed, documented below Past surgical history : Reviewed, documented below Social history: Reviewed, documented below Medications: Reviewed, as documented below EXAMINATION: Vital sigans= Reviewed and documented below GENERAL DESCRIPTION: Middle-aged male lying in bed, no distress. No tachypnea or accessory muscle of respiration use. HEENT: Shows Pallor , no scleral icterus. Oral mucous membrane is dry. NECK: Trachea central, no thyromegaly. LUNGS: Unlabored breathing. Clear to auscultation anteriorly. No wheeze or crackle. HEART: S1, S2, regular rate and rhythm. ABDOMEN: Soft, no tenderness , guarding or rigidity EXTREMITIES: Left leg with swelling redness and an area of fluctuation no drainage was noticed. SKIN: No rash, no masses palpable. NEUROLOGICAL: The patient is awake, alert, oriented x3, mood and affect normal. LABS AND RADIOLOGY: Reviewed results see below Assessment : Patient presented to hospital with acute left lower extremity cellulitis in this patient with possible subcutaneous abscess and likely from gram-positive skin burton less likely from the gram-negative infection Plan: 1-await I&D and deep culture 2-antibiotic will be adjusted to cefepime and vancomycin while waiting for the culture to finalize 3-Marked area of the redness We will follow on clinical condition and cultures to further adjust medication if needed Thank you for this consultation we will follow the patient along with you Past Medical History Past Medical History: Hypertension, Liver Disease, Seizure Disorder Additional Past Medical History / Comment(s): fatty liver disease, Alcohol abuse, cirrhosis, ascites History of Any Multi-Drug Resistant Organisms: None Reported Past Surgical History: Orthopedic Surgery Additional Past Surgical History / Comment(s): rt hand, 2 lt shoulder, large volume paracentesis Past Anesthesia/Blood Transfusion Reactions: No Reported Reaction Past Psychological History: No Psychological Hx Reported Additional Psychological History / Comment(s): Pt resides with a friend. He is on a low sodium fluid restriction diet. He is independent. Smoking Status: Never smoker Past Alcohol Use History: None Reported, Daily, Heavy Additional Past Alcohol Use History / Comment(s): Pt states he has cut down to 10-12 beers a day but in the past drank much more than this. Past Drug Use History: None Reported - Past Family History Mother Family Medical History: Hypertension Additional Family Medical History / Comment(s): Mother is living. Father Family Medical History: CVA/TIA Additional Family Medical History / Comment(s): Father is living. Medications and Allergies Home Medications Medication Instructions Recorded Confirmed Type Pantoprazole Sodium [Protonix] 40 mg PO DAILY 04/11/20 01/13/21 History Metoprolol Tartrate [Lopressor] 50 mg PO BID #60 tab 04/12/20 01/13/21 Rx Spironolactone [Aldactone] 100 mg PO DAILY #30 tab 04/12/20 01/13/21 Rx Furosemide [Lasix] 40 mg PO BID 06/24/20 01/13/21 History Thiamine [Vitamin B-1] 100 mg PO DAILY #30 tab 06/25/20 01/13/21 Rx Magnesium 200 mg PO DAILY 01/13/21 01/13/21 History Allergies Allergy/AdvReac Type Severity Reaction Status Date / Time morphine AdvReac Hallucinati Verified 01/13/21 06:54 ons Physical Exam Vitals: Vital Signs Temp Pulse Resp BP BP Pulse Ox 01/15/21 14:31 98.3 F 84 18 113/66 97 01/15/21 13:00 98 F 77 19 108/65 98 01/15/21 08:05 97 118/75 01/15/21 07:07 99.2 F 84 22 110/67 95 01/15/21 05:00 100.2 F H 86 20 125/70 96 01/14/21 19:45 98 F 84 20 134/81 96 01/14/21 18:13 97.7 F 76 16 122/68 96 Intake and Output 01/15/21 01/15/21 01/15/21 06:59 14:59 22:59 Intake Total 100 Balance 100 Intake: Oral 100 Other: # Voids 5 Results CBC & Chem 7: 01/15/21 06:08 01/15/21 06:07 Labs: Abnormal Lab Results - Last 24 Hours (Table) 01/15/21 01/15/21 Range/Units 06:07 06:08 RBC 3.38 L (4.30-5.90) m/uL Hgb 11.0 L (13.0-17.5) gm/dL Hct 33.1 L (39.0-53.0) % Plt Count 109 L (150-450) k/uL Sodium 132 L (137-145) mmol/L Calcium 8.1 L (8.4-10.2) mg/dL Magnesium 1.5 L (1.6-2.3) mg/dL Total Bilirubin 7.4 H (0.2-1.3) mg/dL AST 133 H (17-59) U/L Albumin 2.5 L (3.5-5.0) g/dL Microbiology - Last 24 Hours (Table) 01/12/21 22:28 Blood Culture - Preliminary Blood No Growth after 48 hours 01/12/21 22:09 Blood Culture - Preliminary Blood No Growth after 48 hours
[2021-01-15] MEDS ORDERED: VANCOMYCIN 1,750 MG in SODIUM CHLORIDE 0.9% 500 ML 500 ML IVPB ONE (23:45)
[2021-01-15] MEDS: CEFEPIME 2 GM in SODIUM CHLORIDE 0.9% 100 ML IVPB SCH (23:54)
[2021-01-16] MEDS: CEFEPIME 2 GM in SODIUM CHLORIDE 0.9% 100 ML IVPB SCH ×5 (02:44→20:25)
[2021-01-16] MEDS: VANCOMYCIN 1,750 MG in SODIUM CHLORIDE 0.9% 500 ML 500 ML IVPB SCH ×3 (08:06→23:48)
[2021-01-16] MEDS: THIAMINE 100 MG TAB PO SCH ×2 (08:07→16:29)
[2021-01-16] MEDS: SPIRONOLACTONE 25 MG TAB PO SCH (08:08)
[2021-01-16] MEDS: METOPROLOL TARTRATE 50 MG TAB PO SCH ×2 (08:08→23:48)
[2021-01-16] MEDS: PANTOPRAZOLE 40 MG TABLET PO SCH (08:08)
[2021-01-16] MEDS: FUROSEMIDE 40 MG TAB PO SCH ×2 (08:08→16:29)
[2021-01-16] MEDS: MAGNESIUM OXIDE 400 MG TAB PO SCH ×2 (08:08→23:48)
--- NOTE | 2021-01-16 08:45 | P.PN ---
Subjective Progress Note Date: 01/16/21 Patient seen and examined. No complaints. States his leg is feeling significantly better at this point Objective - Vital Signs Vital signs: Vital Signs Temp 98.5 F 01/16/21 05:00 Pulse 77 01/16/21 08:10 Resp 16 01/16/21 05:00 BP 124/75 01/16/21 08:10 Pulse Ox 94 L 01/16/21 05:00 Intake & Output 01/15/21 01/16/21 01/16/21 18:59 06:59 18:59 Intake Total 150 Balance 150 Intake: Intake, IV Titration 150 Amount Magnesium Sulfate-D5w Pmx 100 1 gm In Dextrose/Water 1 100ml.bag @ 100 mls/hr IVPB Q1H [facility] Rx#: [id number] ceFAZolin 2 gm In Sodium 50 Chloride 0.9% 50 ml @ 100 mls/hr IVPB Q8HR [facility] Rx# :[id number] Other: Voiding Method Toilet Urinal # Voids 2 - Exam Gen.a pleasant cooperative male in no acute distress. HEENT is normocephalic atraumatic, extraocular motion intact. Heart appears regular. Lungs are clear. Abdomen is soft. Left lower extremity with erythema. The erythema is improving. The dressing is removed. No purulent drainage - Labs CBC & Chem 7: 01/15/21 06:08 01/15/21 06:07 Labs: Microbiology - Last 24 Hours (Table) 01/12/21 22:28 Blood Culture - Preliminary Blood No Growth after 72 hours 01/12/21 22:09 Blood Culture - Preliminary Blood No Growth after 72 hours 01/15/21 18:43 Wound Culture - Preliminary Leg - Left Assessment and Plan Assessment: Day #1 post incision and drainage of left leg abscess Left lower extremity cellulitis Likely abscess Plan: Patient is doing well overall. Continue daily wet-to-dry dressing changes, consult wound care. Await further antibiotic recommendations per infectious disease. We'll sign off at this time. Please call if further need arises
--- NOTE | 2021-01-16 11:11 | P.PN ---
Subjective Patient underwent I&D of the abscess yesterday. Dressing was changes morning by nursing staff and I was unable to examine his leg. Objective - Vital Signs Vital signs: Vital Signs Temp 98.5 F 01/16/21 05:00 Pulse 77 01/16/21 08:10 Resp 16 01/16/21 05:00 BP 124/75 01/16/21 08:10 Pulse Ox 94 L 01/16/21 05:00 Intake & Output 01/15/21 01/16/21 01/16/21 18:59 06:59 18:59 Intake Total 150 Balance 150 Intake: Intake, IV Titration 150 Amount Magnesium Sulfate-D5w Pmx 100 1 gm In Dextrose/Water 1 100ml.bag @ 100 mls/hr IVPB Q1H AMANDA Rx#: [id number] ceFAZolin 2 gm In Sodium 50 Chloride 0.9% 50 ml @ 100 mls/hr IVPB Q8HR AMANDA Rx# :[id number] Other: Voiding Method Toilet Urinal # Voids 2 - Exam General: The patient is awake and alert, in no distress Eye: there is normal conjunctiva bilaterally. Neck: The neck is supple, there is no JVD. Cardiovascular: Normal S1-S2, no S3-S4, no murmurs. Respiratory: Lungs clear to auscultation bilaterally Gastrointestinal: Abdomen is soft, nontender Musculoskeletal: There is significant swelling involving the left lower extremity wrapped with Tiny/dry dressing Neurological:. Speech is normal. Skin: Skin is warm and dry - Labs CBC & Chem 7: 01/15/21 06:08 01/15/21 06:07 Labs: Microbiology - Last 24 Hours (Table) 01/12/21 22:28 Blood Culture - Preliminary Blood No Growth after 72 hours 01/12/21 22:09 Blood Culture - Preliminary Blood No Growth after 72 hours 01/15/21 18:43 Wound Culture - Preliminary Leg - Left Assessment and Plan Assessment: The patient is a 40-year-old male with a PMH of alcoholic cirrhosis with recurrent ascites along with ongoing alcohol abuse now presents to the emergency room with complaints of bilateral lower extremity swelling along with left lower extremity redness and pain. Patient was evaluated in the ER and admitted to the hospital for further management of his medical problems noted below. Left lower extremity cellulitis with abscess formation -Status post I&D by vascular surgery -Antibiotic adjusted to vancomycin and cefepime by infectious disease awaiting cultures to finalize -Blood culture negative today -Doppler ultrasound negative for DVT Alcoholic cirrhosis with ongoing alcohol abuse -[facility] protocol -Monitor electrolytes daily -Thiamine -Fall, seizure precautions -Continue with home diuretics -Patient reports that he follows with Dr. 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
--- NOTE | 2021-01-16 11:36 | P.CONS ---
History of Present Illness - Reason for Consult Consult date: 01/16/21 wound care - History of Present Illness This is a 40-year-old patient being seen on [address] for a nonhealing ulceration to the left anterior lower extremity. Patient underwent an I&D yesterday where a copious amount of purulent drainage was removed from the ulcerated site. Patient does have erythema and cellulitis to the lower extremity with edema. Patient has a dressing in place that is clean and dry. Ulceration measures apparently 2 x 2 x 0.5. Patient's hospital history significant for hypertension, liver disease, alcohol use and cirrhosis. Patient denies smoking. Review Of Systems: Constitutional: No fever, no chills, no night sweats. No weight change. No weakness, fatigue or lethargy. No daytime sleepiness. Integumentary:reports wounds, no lesions. No rash or pruritus. No unusual bruising. No change in hair or nails. Physical exam: General Appearance: Alert, cooperative, no distress, appears stated age. Skin: See HPI all other Skin color, texture, tugor normal, no rashes or lesions. Neurologic: Alert oriented x3 Assessment: 1. Nonhealing ulceration of the left lower extremity with fat layer exposure. Thank: 1. Apply absorptive silver, saline moistened gauze, dry gauze, rolled gauze sec ured paper tape. Wrap with Galen wrap to help with swelling. If patient requires additional support to the wound will be happy to see him in the wound care center. DNP note has been reviewed and discussed with Dr. Lainez and the impression and plan of care has been directed as dictated. Past Medical History Past Medical History: Hypertension, Liver Disease, Seizure Disorder Additional Past Medical History / Comment(s): fatty liver disease, Alcohol abuse, cirrhosis, ascites History of Any Multi-Drug Resistant Organisms: None Reported Past Surgical History: Orthopedic Surgery Additional Past Surgical History / Comment(s): rt hand, 2 lt shoulder, large volume paracentesis Past Anesthesia/Blood Transfusion Reactions: No Reported Reaction Past Psychological History: No Psychological Hx Reported Additional Psychological History / Comment(s): Pt resides with a friend. He is on a low sodium fluid restriction diet. He is independent. Smoking Status: Never smoker Past Alcohol Use History: None Reported, Daily, Heavy Additional Past Alcohol Use History / Comment(s): Pt states he has cut down to 10-12 beers a day but in the past drank much more than this. Past Drug Use History: None Reported - Past Family History Mother Family Medical History: Hypertension Additional Family Medical History / Comment(s): Mother is living. Father Family Medical History: CVA/TIA Additional Family Medical History / Comment(s): Father is living. Medications and Allergies Home Medications Medication Instructions Recorded Confirmed Type Pantoprazole Sodium [Protonix] 40 mg PO DAILY 04/11/20 01/13/21 History Metoprolol Tartrate [Lopressor] 50 mg PO BID #60 tab 04/12/20 01/13/21 Rx Spironolactone [Aldactone] 100 mg PO DAILY #30 tab 04/12/20 01/13/21 Rx Furosemide [Lasix] 40 mg PO BID 06/24/20 01/13/21 History Thiamine [Vitamin B-1] 100 mg PO DAILY #30 tab 06/25/20 01/13/21 Rx Magnesium 200 mg PO DAILY 01/13/21 01/13/21 History Allergies Allergy/AdvReac Type Severity Reaction Status Date / Time morphine AdvReac Hallucinati Verified 01/13/21 06:54 ons Physical Exam Vitals: Vital Signs Temp Pulse Pulse Resp BP BP Pulse Ox 01/16/21 08:10 77 124/75 01/16/21 05:00 98.5 F 69 16 105/62 94 L 01/15/21 20:47 98.8 F 87 16 114/67 96 01/15/21 20:00 16 01/15/21 18:52 98.3 F 83 20 107/63 95 01/15/21 16:18 18 01/15/21 14:31 98.3 F 84 18 113/66 97 01/15/21 13:00 98 F 77 19 108/65 98 Intake and Output 01/15/21 01/16/21 01/16/21 22:59 06:59 14:59 Intake Total 150 Balance 150 Intake: Intake, IV Titration 150 Amount Magnesium Sulfate-D5w Pmx 100 1 gm In Dextrose/Water 1 100ml.bag @ 100 mls/hr IVPB Q1H AMANDA Rx#: [id number] ceFAZolin 2 gm In Sodium 50 Chloride 0.9% 50 ml @ 100 mls/hr IVPB Q8HR AMANDA Rx# :[id number] Other: Voiding Method Toilet Urinal # Voids 2 Results CBC & Chem 7: 01/15/21 06:08 01/15/21 06:07 Labs: Microbiology - Last 24 Hours (Table) 01/12/21 22:28 Blood Culture - Preliminary Blood No Growth after 72 hours 01/12/21 22:09 Blood Culture - Preliminary Blood No Growth after 72 hours 01/15/21 18:43 Wound Culture - Preliminary Leg - Left Assessment and Plan (1) 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
[2021-01-16 14:53] VITALS: BMI 32.5
--- NOTE | 2021-01-16 16:09 | PN ---
PROGRESS NOTE DATE OF SERVICE: 01/16/2021 REASON FOR FOLLOWUP: Left leg cellulitis and abscess. INTERVAL HISTORY: The patient is afebrile. The patient overall is feeling better as far as the pain and pressure of the left leg is concerned. No chest pain, shortness of breath or cough. No abdominal pain or diarrhea. PHYSICAL EXAMINATION: Blood pressure 112/68 with a pulse of 70, temperature of 98.6. He is 96% on room air. General description is a middle-aged male lying in bed in no distress. Respiratory system: Unlabored breathing, clear to auscultation anteriorly. Heart S1, S2. Regular rate and rhythm. Abdomen soft, no tenderness. Left leg is currently dressed. No obvious drainage on the dressing. LABS: No new labs have been obtained today. Cultures currently pending. DIAGNOSTIC IMPRESSION AND PLAN: Patient with left leg wound with secondary cellulitis, status post drainage of the abscess. Cultures are currently pending. Patient to continue with vancomycin and cefepime with discharge antibiotic based on the culture report. Continue supportive care. MMODL / IJN: [id number] /
[2021-01-16] MEDS: HYDROcodone/APAP 5-325MG 1 EACH TAB PO PRN (20:30)
[2021-01-17] MEDS ORDERED: VANCOMYCIN TROUGH DUE 1 EACH MISC MISCELLANE ONE (07:00)
[2021-01-17] MEDS: VANCOMYCIN 1,750 MG in SODIUM CHLORIDE 0.9% 500 ML 500 ML IVPB SCH (07:28)
[2021-01-17] MEDS: FUROSEMIDE 40 MG TAB PO SCH ×2 (07:29→15:46)
[2021-01-17] MEDS: MAGNESIUM OXIDE 400 MG TAB PO SCH ×2 (07:29→20:56)
[2021-01-17] MEDS: METOPROLOL TARTRATE 50 MG TAB PO SCH ×2 (07:29→20:56)
[2021-01-17] MEDS: SPIRONOLACTONE 25 MG TAB PO SCH (07:29)
[2021-01-17] MEDS: PANTOPRAZOLE 40 MG TABLET PO SCH (07:29)
[2021-01-17] MEDS: THIAMINE 100 MG TAB PO SCH ×2 (07:29→16:45)
[2021-01-17 07:30] LABS: African American GFR (CKD) >90 (>60 ml/min/1.73 sqM); Anion Gap 6 mmol/L; Blood Urea Nitrogen 10 mg/dL (9-20); Carbon Dioxide 24 mmol/L (22-30); Chloride 106 mmol/L (98-107); Glucose 87 mg/dL (74-99); Magnesium 1.5 mg/dL (1.6-2.3); Non-African American GFR(CKD) >90 (>60 ml/min/1.73 sqM); Potassium 3.4 mmol/L (3.5-5.1); Sodium 136 mmol/L (137-145)
[2021-01-17] MEDS: HYDROcodone/APAP 5-325MG 1 EACH TAB PO PRN ×3 (08:34→23:19)
[2021-01-17] MEDS: MAGNESIUM SULFATE-D5W PMX 1 GM in DEXTROSE/WATER 1 100ML.BAG IVPB SCH ×2 (10:39→11:50)
[2021-01-17] MEDS: POTASSIUM CHLORIDE ER 20 MEQ TAB.ER PO SCH (10:39)
--- NOTE | 2021-01-17 11:10 | P.PN ---
Subjective Patient is doing fairly well today. There is no acute events overnight. Objective - Vital Signs Vital signs: Vital Signs Temp 97.7 F 01/17/21 05:00 Pulse 74 01/17/21 07:33 Resp 16 01/17/21 05:00 BP 118/69 01/17/21 07:33 Pulse Ox 98 01/17/21 05:00 Intake & Output 01/16/21 01/17/21 01/17/21 18:59 06:59 18:59 Intake Total 590 590 Balance 590 590 Weight 108.862 kg Intake: Oral 590 590 Other: Voiding Method Toilet Toilet Toilet Urinal Urinal # Voids 1 2 - Exam General: The patient is awake and alert, in no distress Eye: there is normal conjunctiva bilaterally. Neck: The neck is supple, there is no JVD. Cardiovascular: Normal S1-S2, no S3-S4, no murmurs. Respiratory: Lungs clear to auscultation bilaterally Gastrointestinal: Abdomen is soft, nontender Musculoskeletal: There is significant swelling involving the left lower extremity wrapped with Tiny/dry dressing Neurological:. Speech is normal. Skin: Skin is warm and dry - Labs CBC & Chem 7: 01/15/21 06:08 01/17/21 06:41 Labs: Abnormal Lab Results - Last 24 Hours (Table) 01/17/21 Range/Units 06:41 Sodium 136 L (137-145) mmol/L Potassium 3.4 L (3.5-5.1) mmol/L Creatinine 0.65 L (0.66-1.25) mg/dL Calcium 8.0 L (8.4-10.2) mg/dL Magnesium 1.5 L (1.6-2.3) mg/dL Microbiology - Last 24 Hours (Table) 01/12/21 22:28 Blood Culture - Preliminary Blood No Growth after 96 hours 01/12/21 22:09 Blood Culture - Preliminary Blood No Growth after 96 hours 01/15/21 18:43 Gram Stain - Preliminary Leg - Left Wound Culture - Preliminary Presumptive MRSA Assessment and Plan Assessment: The patient is a 40-year-old male with a PMH of alcoholic cirrhosis with recurrent ascites along with ongoing alcohol abuse now presents to the emergency room with complaints of bilateral lower extremity swelling along with left lower extremity redness and pain. Patient was evaluated in the ER and admitted to the hospital for further management of his medical problems noted below. MRSA Left lower extremity cellulitis with abscess formation -Status post I&D by vascular surgery, wound care consulted. -Antibiotic adjusted to vancomycin and cefepime by infectious disease awaiting cultures to finalize -Blood culture negative todate -Doppler ultrasound negative for DVT Alcoholic cirrhosis with ongoing alcohol abuse -[facility] protocol -Monitor electrolytes daily -Thiamine -Fall, seizure precautions -Continue with home diuretics -Patient reports that he follows with Dr. Dawn as an outpatient Hyponatremia -Secondary to beer potomania, improving Hypomagnesemia -Replacement ordered Abnormal LFTs and elevated lipase -Due to alcoholic hepatitis -Advised on the importance of cessation Thrombocytopenia -Likely due to ongoing abuse DVT prophylaxis -Sensitometrist Today, I reviewed his medication list and lab work results. Awaiting final antibiotic recommendations by infectious disease for discharge
[2021-01-17] MEDS: VANCOMYCIN 1,500 MG in SODIUM CHLORIDE 0.9% 250 ML IVPB SCH ×2 (15:46→23:17)
--- NOTE | 2021-01-17 17:34 | PN ---
PROGRESS NOTE DATE OF SERVICE: 01/17/2021 REASON FOR FOLLOWUP: Left leg abscess and cellulitis, MRSA. INTERVAL HISTORY: The patient is afebrile. The patient is currently breathing comfortably. No chest pain, shortness of breath or cough. No abdominal pain on worsening pain to the left leg. Wants to go home. PHYSICAL EXAMINATION: Blood pressure 117/66, pulse of 78, temperature 98.2. He is 98% on room air. General description is a middle-aged male lying in bed in no distress. Respiratory system: Unlabored breathing, clear to auscultation anteriorly. Heart S1, S2. Regular rate and rhythm. Abdomen soft, no tenderness. Left leg is currently dressed. No obvious drainage on the dressing. LABS: Creatinine 0.65. Wound culture with presumptive MRSA, sensitivities pending. DIAGNOSTIC IMPRESSION AND PLAN: Patient with left leg abscess, status post drainage. Culture with MRSA. Sensitivities pending to determine discharge antibiotic; more likely Bactrim DS one twice a day for 7- 10 days if sensitive. Continue supportive care. MMODL / IJN: [id number] /
[2021-01-18 05:32] VITALS: BP 111/67; PULSE 70; RESP 16; TEMP 98
[2021-01-18 07:45] LABS: African American GFR (CKD) >90 (>60 ml/min/1.73 sqM); Anion Gap 4 mmol/L; Blood Urea Nitrogen 9 mg/dL (9-20); Calcium 7.5 mg/dL (8.4-10.2); Carbon Dioxide 28 mmol/L (22-30); Chloride 102 mmol/L (98-107); Glucose 87 mg/dL (74-99); Non-African American GFR(CKD) >90 (>60 ml/min/1.73 sqM); Potassium 3.3 mmol/L (3.5-5.1); Sodium 134 mmol/L (137-145)
[2021-01-18 07:54] LABS: Magnesium 1.6 mg/dL (1.6-2.3)
--- NOTE | 2021-01-18 08:21 | P.DS ---
Providers Date of admission: 01/12/21 23:44 Expected date of discharge: 01/18/21 Attending physician: Juan Murray MD Consults: 01/15/21 08:54 Consult Physician Routine Consulting Provider: Chai Cade Consult Reason/Comments: Cellulitis left leg Do you want consulting provider notified?: Yes Primary care physician: [place] [facility] Course: The patient is a 40-year-old male with a PMH of alcoholic cirrhosis with recurrent ascites along with ongoing alcohol abuse now presents to the emergency room with complaints of bilateral lower extremity swelling along with left lower extremity redness and pain. Patient was evaluated in the ER and admitted to the hospital for further management of his medical problems noted below. MRSA Left lower extremity cellulitis with abscess formation -Status post I&D by vascular surgery, wound care consulted. Plan to follow-up in the office. -Patient was started on IV vancomycin during this admission. He was seen and evaluated by infectious disease. He would finish antibiotic course with Bactrim for 7 more days. -Blood culture negative todate -Doppler ultrasound negative for DVT Alcoholic cirrhosis with ongoing alcohol abuse -Counseled extensively to quit alcohol -Continue with home diuretics -Patient reports that he follows with Dr. Dawn as an outpatient Hyponatremia -Secondary to beer potomania, improved Hypomagnesemia -Replaced Abnormal LFTs and elevated lipase -Due to alcoholic hepatitis -Advised on the importance of cessation Thrombocytopenia -Likely due to ongoing abuse Patient will be discharged home in a stable condition. Physical exam: General: The patient is awake and alert, in no distress Eye: there is normal conjunctiva bilaterally. Neck: The neck is supple, there is no JVD. Cardiovascular: Normal S1-S2, no S3-S4, no murmurs. Respiratory: Lungs clear to auscultation bilaterally Gastrointestinal: Abdomen is soft, nontender Musculoskeletal: There is no pedal edema. Left lower extremity wrapped with clean dressing and Galen wrap Neurological:. Speech is normal. Skin: Skin is warm and dry Patient Condition at Discharge: Fair Plan - Discharge Summary Discharge Rx Participant: Yes New Discharge Prescriptions: New Sulfamethox-Tmp 800-160Mg [Bactrim DS 800-160 mg] 1 tab PO Q12HR #14 tab Magnesium Oxide [Mag-Ox] 400 mg PO BID #60 tab Continue Pantoprazole Sodium [Protonix] 40 mg PO DAILY Spironolactone [Aldactone] 100 mg PO DAILY #30 tab Metoprolol Tartrate [Lopressor] 50 mg PO BID #60 tab Furosemide [Lasix] 40 mg PO BID Thiamine [Vitamin B-1] 100 mg PO DAILY #30 tab Discontinued Magnesium 200 mg PO DAILY Discharge Medication List Pantoprazole Sodium [Protonix] 40 mg PO DAILY 04/11/20 [History] Metoprolol Tartrate [Lopressor] 50 mg PO BID #60 tab 04/12/20 [Rx] Spironolactone [Aldactone] 100 mg PO DAILY #30 tab 04/12/20 [Rx] Furosemide [Lasix] 40 mg PO BID 06/24/20 [History] Thiamine [Vitamin B-1] 100 mg PO DAILY #30 tab 06/25/20 [Rx] Magnesium Oxide [Mag-Ox] 400 mg PO BID #60 tab 01/18/21 [Rx] Sulfamethox-Tmp 800-160Mg [Bactrim DS 800-160 mg] 1 tab PO Q12HR #14 tab 01/18/21 [Rx] Follow up Appointment(s)/Referral(s): Carlos Enrique Crowder MD [Primary Care Provider] - 1-2 days Flora Velasco NPC [Nurse Practitioner] - 1 Week Discharge Disposition: HOME SELF-CARE
[2021-01-18] MEDS: SPIRONOLACTONE 25 MG TAB PO SCH (08:34)
[2021-01-18] MEDS: MAGNESIUM OXIDE 400 MG TAB PO SCH (08:34)
[2021-01-18] MEDS: POTASSIUM CHLORIDE ER 20 MEQ TAB.ER PO SCH (08:34)
[2021-01-18] MEDS: PANTOPRAZOLE 40 MG TABLET PO SCH (08:34)
[2021-01-18] MEDS: METOPROLOL TARTRATE 50 MG TAB PO SCH (08:34)
[2021-01-18] MEDS: VANCOMYCIN 1,500 MG in SODIUM CHLORIDE 0.9% 250 ML IVPB SCH (08:34)
[2021-01-18] MEDS: THIAMINE 100 MG TAB PO SCH (08:34)
[2021-01-18] MEDS: FUROSEMIDE 40 MG TAB PO SCH (08:34)
== END 2021-01-18 10:40 | disposition home or self-care (01) | DRG 603 ==
LOC: EC 20:50 → 5NMEDONC 23:44
PROVIDERS: ADMIT Internal Medicine; ATTEND Internal Medicine
PROC: 0Y9J0ZX Drainage of Left Lower Leg, Open Approach, Diagnostic (ICD-10-PCS; principal; 2021-01-15)
DX: L02.416 Cutaneous abscess of left lower limb (principal); E87.1 Hypo-osmolality and hyponatremia; L97.222 Non-pressure chronic ulcer of left calf with fat layer exposed; K70.31 Alcoholic cirrhosis of liver with ascites; D69.59 Other secondary thrombocytopenia; K70.11 Alcoholic hepatitis with ascites; Z20.822 Contact with and (suspected) exposure to COVID-19; K76.0 Fatty (change of) liver, not elsewhere classified; L03.116 Cellulitis of left lower limb; B95.62 Methicillin resistant Staphylococcus aureus infection as the cause of diseases classified elsewhere; F10.10 Alcohol abuse, uncomplicated; I10 Essential (primary) hypertension; E83.42 Hypomagnesemia; Y90.8 Blood alcohol level of 240 mg/100 ml or more; Z79.899 Other long term (current) drug therapy; Z86.69 Personal history of other diseases of the nervous system and sense organs; Z87.39 Personal history of other diseases of the musculoskeletal system and connective tissue; Z98.890 Other specified postprocedural states; Z88.5 Allergy status to narcotic agent; W19.XXXA Unspecified fall, initial encounter; Z82.49 Family history of ischemic heart disease and other diseases of the circulatory system; Z82.3 Family history of stroke
CPT/HCPCS: 36415; 70450; 72125; 80048; 80053; 80202; 80320; 81003; 82140; 82150; 83690; 83735; 85025; 85027; 85610; 87040; 87070; 87077; 87186; 87205; 87635; 93970; 99285

== ENCOUNTER 2021-02-17 00:42 | Emergency (ER) | payer OTHER ==
[2021-02-17 02:34] LABS: Anisocytosis Slight; Basophils % (A) 0 %; Eosinophils # (A) 0.1 k/uL (0-0.7); Eosinophils % (A) 3 %; HCT 29.2 % (39.0-53.0); INR 1.7 (<1.2); Lymphocytes # (A) 2.3 k/uL (1.0-4.8); Lymphocytes % (A) 45 %; MCH 32.2 pg (25.0-35.0); MCHC 34.3 g/dL (31.0-37.0); MCV 93.8 fL (80.0-100.0); Mean Platelet Volume 8.9; Monocytes # (A) 0.5 k/uL (0-1.0); Monocytes % (A) 10 %; Neutrophils % (A) 39 %; Partial Thromboplastin Time 31.9 sec (22.0-30.0); Prothrombin Time 17.2 sec (9.0-12.0); RBC 3.11 m/uL (4.30-5.90); RDW 16.5 % (11.5-15.5); WBC 5.1 k/uL (3.8-10.6)
--- NOTE | 2021-02-17 02:35 | XR ---
EXAMINATION TYPE: XR chest 2V DATE OF EXAM: 02/17/2021 COMPARISON: 03/26/2018 HISTORY: Pain TECHNIQUE: 2 views FINDINGS: Heart and mediastinum are normal. Lungs are clear. Diaphragm is normal. Bony thorax is inta ct. IMPRESSION: Normal chest. No change.
--- NOTE | 2021-02-17 02:36 | XR ---
EXAMINATION TYPE: XR elbow complete RT DATE OF EXAM: 02/17/2021 COMPARISON: NONE HISTORY: Pain TECHNIQUE: 3 view FINDINGS: I see no fracture nor dislocation. There is some spurring on the olecranon process. There i s no sign of elbow joint effusion. Joint spaces are normal. IMPRESSION: Calcification at the olecranon process related to calcific tendinitis. No fracture.
--- NOTE | 2021-02-17 02:55 | ED ---
General Adult HPI - General Chief complaint: Extremity Problem,Nontraumatic Stated complaint: RT arm pain, leg swelling Time Seen by Provider: 02/17/21 01:02 Source: patient, family Mode of arrival: ambulatory Limitations: no limitations - History of Present Illness Initial comments: 40 year-old male patient with history of heavy alcohol abuse, ascites, and recent MRSA cellulitis to the left lower leg presents for increased swelling and redness to the leg. He is also reporting right elbow and forearm pain. Also had left sided chest pain today beneath his left breast. States pain lasted for a while, he is unsure how long. Denies any shortness of breath. Denies numbness or tingling to the extremities. States he does have diarrhea. Denies vomiting. Denies known injury to the right arm. Denies history of CAD. Denies taking any medication for his symptoms. Does admit to alcohol use today. - Related Data Home Medications Medication Instructions Recorded Confirmed Pantoprazole Sodium [Protonix] 40 mg PO DAILY 04/11/20 01/13/21 Furosemide [Lasix] 40 mg PO BID 06/24/20 01/13/21 Previous Rx's Medication Instructions Recorded Metoprolol Tartrate [Lopressor] 50 mg PO BID #60 tab 04/12/20 Spironolactone [Aldactone] 100 mg PO DAILY #30 tab 04/12/20 Thiamine [Vitamin B-1] 100 mg PO DAILY #30 tab 06/25/20 Magnesium Oxide [Mag-Ox] 400 mg PO BID #60 tab 01/18/21 Sulfamethox-Tmp 800-160Mg [Bactrim 1 tab PO Q12HR #14 tab 01/18/21 DS 800-160 mg] Cephalexin [Keflex] 500 mg PO Q6HR #40 cap 02/17/21 Sulfamethoxazole/Trimethoprim 1 each PO BID #20 tablet 02/17/21 [Bactrim DS 800-160 mg] Allergies Allergy/AdvReac Type Severity Reaction Status Date / Time morphine AdvReac Hallucinati Verified 02/17/21 00:57 ons Review of Systems ROS Statement: Those systems with pertinent positive or pertinent negative responses have been documented in the HPI. ROS Other: All systems not noted in ROS Statement are negative. Past Medical History Past Medical History: Hypertension, Liver Disease, Seizure Disorder Additional Past Medical History / Comment(s): fatty liver disease, Alcohol abuse, cirrhosis, ascites History of Any Multi-Drug Resistant Organisms: MRSA Date of last positivie culture/infection: 01/15/21 MDRO Source:: MRSA LEG Past Surgical History: Orthopedic Surgery Additional Past Surgical History / Comment(s): rt hand, 2 lt shoulder, large volume paracentesis Past Anesthesia/Blood Transfusion Reactions: No Reported Reaction Past Psychological History: No Psychological Hx Reported Smoking Status: Never smoker Past Alcohol Use History: None Reported, Daily, Heavy Past Drug Use History: None Reported - Past Family History Mother Family Medical History: Hypertension Additional Family Medical History / Comment(s): Mother is living. Father Family Medical History: CVA/TIA Additional Family Medical History / Comment(s): Father is living. General Exam Limitations: no limitations General appearance: alert, in no apparent distress, other (This is a well- developed, well-nourished adult male in no acute distress.) ENT exam: Present: normal exam, normal oropharynx, mucous membranes moist Respiratory exam: Present: normal lung sounds bilaterally. Absent: respiratory distress, wheezes, rales, rhonchi, stridor Cardiovascular Exam: Present: normal rhythm, tachycardia, normal heart sounds. Absent: systolic murmur, diastolic murmur, rubs, gallop, clicks GI/Abdominal exam: Present: soft, normal bowel sounds. Absent: distended, tenderness, guarding, rebound, rigid Extremities exam: Present: normal inspection, full ROM, normal capillary refill, other (Radial pulses 2+). Absent: tenderness, pedal edema, joint swelling, calf tenderness Neurological exam: Present: alert, oriented X3, CN II-XII intact Psychiatric exam: Present: normal affect, normal mood Skin exam: Present: warm, dry, intact, normal color. Absent: rash Course Vital Signs 02/17/21 02/17/21 02/17/21 00:50 03:06 04:41 Temperature 98.1 F 98.1 F Pulse Rate 101 H 96 93 Respiratory 22 18 16 Rate Blood Pressure 141/81 133/62 124/86 O2 Sat by Pulse 99 96 97 Oximetry 02/17/21 06:07 Temperature 97.9 F Pulse Rate 93 Respiratory 18 Rate Blood Pressure 153/82 O2 Sat by Pulse 97 Oximetry EKG Findings - EKG Comments: EKG Findings:: EKG obtained at 44 shows normal sinus rhythm with a prolonged QT interval. Ventricular rate is 88, TX interval 170, QRS duration 106, QT 410, QTC 496. No evidence of ST elevation or depression. Medical Decision Making - Medical Decision Making 40-year-old male patient chronic alcohol abuse presents for evaluation of left leg redness and swelling. Also reporting right arm pain. Physical examination did reveal normal neurovascular status of both extremities. Left lower leg did show edema with overlying erythema near her recent I&D site. Labs reviewed and revealed normal white blood cell count. He is afebrile. Normal vital signs. He'll be started on Keflex and Bactrim for possible MRSA cellulitis. He'll be discharged WITH his primary care physician for recheck in 1-2 days. Return parameters were discussed in detail. He verbalizes understanding and agrees with this plan. My attending is Dr. Lugo. - Lab Data Result diagrams: 02/17/21 02:15 02/17/21 02:15 Lab Results 02/17/21 02/17/21 02/17/21 Range/Units 02:15 02:15 02:15 WBC 5.1 (3.8-10.6) k/uL RBC 3.11 L (4.30-5.90) m/uL Hgb 10.0 L (13.0-17.5) gm/dL Hct 29.2 L (39.0-53.0) % MCV 93.8 (80.0-100.0) fL MCH 32.2 (25.0-35.0) pg MCHC 34.3 (31.0-37.0) g/dL RDW 16.5 H (11.5-15.5) % Plt Count 29 L D (150-450) k/uL MPV 8.9 Neutrophils % 39 % Lymphocytes % 45 % Monocytes % 10 % Eosinophils % 3 % Basophils % 0 % Neutrophils # 2.0 (1.3-7.7) k/uL Lymphocytes # 2.3 (1.0-4.8) k/uL Monocytes # 0.5 (0-1.0) k/uL Eosinophils # 0.1 (0-0.7) k/uL Basophils # 0.0 (0-0.2) k/uL Manual Slide Review Performed Anisocytosis Slight Target Cells Present PT 17.2 H (9.0-12.0) sec INR 1.7 H (<1.2) APTT 31.9 H (22.0-30.0) sec Sodium 134 L (137-145) mmol/L Potassium 3.5 (3.5-5.1) mmol/L Chloride 102 (98-107) mmol/L Carbon Dioxide 22 (22-30) mmol/L Anion Gap 10 mmol/L BUN 2 L (9-20) mg/dL Creatinine 0.56 L (0.66-1.25) mg/dL Est GFR (CKD-EPI)AfAm >90 (>60 ml/min/1.73 sqM) Est GFR (CKD-EPI)NonAf >90 (>60 ml/min/1.73 sqM) Glucose 113 H (74-99) mg/dL Calcium 7.6 L (8.4-10.2) mg/dL Total Bilirubin 2.6 H (0.2-1.3) mg/dL AST 162 H (17-59) U/L ALT 34 (4-49) U/L Alkaline Phosphatase 176 H (38-126) U/L Troponin I (0.000-0.034) ng/mL Total Protein 7.4 (6.3-8.2) g/dL Albumin 2.9 L (3.5-5.0) g/dL 02/17/21 Range/Units 02:15 WBC (3.8-10.6) k/uL RBC (4.30-5.90) m/uL Hgb (13.0-17.5) gm/dL Hct (39.0-53.0) % MCV (80.0-100.0) fL MCH (25.0-35.0) pg MCHC (31.0-37.0) g/dL RDW (11.5-15.5) % Plt Count (150-450) k/uL MPV Neutrophils % % Lymphocytes % % Monocytes % % Eosinophils % % Basophils % % Neutrophils # (1.3-7.7) k/uL Lymphocytes # (1.0-4.8) k/uL Monocytes # (0-1.0) k/uL Eosinophils # (0-0.7) k/uL Basophils # (0-0.2) k/uL Manual Slide Review Anisocytosis Target Cells PT (9.0-12.0) sec INR (<1.2) APTT (22.0-30.0) sec Sodium (137-145) mmol/L Potassium (3.5-5.1) mmol/L Chloride (98-107) mmol/L Carbon Dioxide (22-30) mmol/L Anion Gap mmol/L BUN (9-20) mg/dL Creatinine (0.66-1.25) mg/dL Est GFR (CKD-EPI)AfAm (>60 ml/min/1.73 sqM) Est GFR (CKD-EPI)NonAf (>60 ml/min/1.73 sqM) Glucose (74-99) mg/dL Calcium (8.4-10.2) mg/dL Total Bilirubin (0.2-1.3) mg/dL AST (17-59) U/L ALT (4-49) U/L Alkaline Phosphatase (38-126) U/L Troponin I 0.025 (0.000-0.034) ng/mL Total Protein (6.3-8.2) g/dL Albumin (3.5-5.0) g/dL Disposition Clinical Impression: Tendonitis of elbow, right, Left leg cellulitis Disposition: HOME SELF-CARE Condition: Good Instructions (If sedation given, give patient instructions): Cellulitis (ED), Calcific Tendinitis (ED) Additional Instructions: Complete antibiotic prescriptions in full. Follow-up with your primary care physician for recheck in 1-2 days. Return for any new, worsening, or concerning symptoms. Prescriptions: Sulfamethoxazole/Trimethoprim [Bactrim DS 800-160 mg] 1 each PO BID #20 tablet Cephalexin [Keflex] 500 mg PO Q6HR #40 cap Is patient prescribed a controlled substance at d/c from ED?: No Referrals: Carlos Enrique Crowder MD [Primary Care Provider] - 1-2 days
[2021-02-17 03:13] LABS: Chloride 102 mmol/L (98-107)
[2021-02-17 03:15] LABS: ALT 34 U/L (4-49); AST 162 U/L (17-59); African American GFR (CKD) >90 (>60 ml/min/1.73 sqM); Albumin 2.9 g/dL (3.5-5.0); Alkaline Phosphatase 176 U/L (38-126); Anion Gap 10 mmol/L; Blood Urea Nitrogen 2 mg/dL (9-20); Calcium 7.6 mg/dL (8.4-10.2); Carbon Dioxide 22 mmol/L (22-30); Glucose 113 mg/dL (74-99); Non-African American GFR(CKD) >90 (>60 ml/min/1.73 sqM); Potassium 3.5 mmol/L (3.5-5.1); Sodium 134 mmol/L (137-145); Total Bilirubin 2.6 mg/dL (0.2-1.3); Total Protein 7.4 g/dL (6.3-8.2)
[2021-02-17 03:29] LABS: Target Cells Present
[2021-02-17 03:30] LABS: Platelet Count 29 k/uL (150-450)
[2021-02-17] MEDS ORDERED: SULFAMETH-TMP DS STARTER PACK 2 TAB BTL PO STA (04:36)
[2021-02-17] MEDS ORDERED: CEPHALEXIN 500MG STARTER PACK 4 CAP BTL PO STA (04:36)
[2021-02-17 04:42] VITALS: PULSE 93
[2021-02-17 06:10] VITALS: BP 153/82; RESP 18; TEMP 97.9
== END 2021-02-17 06:13 | disposition home or self-care (01) ==
LOC: EC 00:42
DX: M67.824 Other specified disorders of tendon, left elbow (principal); L03.116 Cellulitis of left lower limb; I10 Essential (primary) hypertension; G40.909 Epilepsy, unspecified, not intractable, without status epilepticus; Z72.89 Other problems related to lifestyle
CPT/HCPCS: 36415; 71046; 80053; 84484; 85025; 85610; 85730; 93005; 99285

== ENCOUNTER 2021-04-24 14:33 | Inpatient (IN) | payer OTHER ==
[2021-04-24] MEDS ORDERED: LORazepam 2 MG/ML INJ IV STA (14:52)
--- NOTE | 2021-04-24 15:10 | ED ---
Alcohol HPI - General Chief Complaint: Alcohol Stated Complaint: Chest pain,ETOH withdrawal Time Seen by Provider: 04/24/21 14:42 Source: patient, RN notes reviewed Mode of arrival: ambulatory Limitations: altered mental status (secondary to intoxication) - History of Present Illness Initial Comments: This is a 40 year old male with a PMHx of alcoholic cirrhosis, ascites, and seizure disorder who presents to the emergency department for alcohol withdra wals. He often consumes a 12-20 beers a day but had been trying to reduce his consumption over the last 2 weeks. He last had 2 beers this morning. His girlfriend is with him at bedside and states that he is very confused. She also states that he has ascites and was supposed to have a paracentesis 2 weeks ago, however it was never scheduled. He also exhibits significant swelling in the left leg and is treated with daily Lasix. Patient complains of chest pain and abdominal pain. Patient states that he feels very scared and says "I don't want to ". He does have a hx of seizures but is unsure when his last one was and takes no prophylactic medication. MD Complaint: alcohol withdrawal Treatments Prior to Arrival: none Chronic Alcohol Use: Yes - Related Data Home Medications Medication Instructions Recorded Confirmed Pantoprazole Sodium [Protonix] 40 mg PO DAILY 04/11/20 01/13/21 Furosemide [Lasix] 40 mg PO BID 06/24/20 01/13/21 Lactulose 10 gm PO DAILY PRN 04/24/21 04/24/21 Magnesium Oxide [Mag-Ox] 400 mg PO DAILY 04/24/21 04/24/21 Sildenafil Citrate [Sildenafil] 20 mg PO DAILY PRN 04/24/21 04/24/21 Previous Rx's Medication Instructions Recorded Metoprolol Tartrate [Lopressor] 50 mg PO BID #60 tab 04/12/20 Spironolactone [Aldactone] 100 mg PO DAILY #30 tab 04/12/20 Thiamine [Vitamin B-1] 100 mg PO DAILY #30 tab 06/25/20 Allergies Allergy/AdvReac Type Severity Reaction Status Date / Time morphine AdvReac Hallucinati Verified 04/24/21 17:47 ons Review of Systems ROS Statement: Those systems with pertinent positive or pertinent negative responses have been documented in the HPI. ROS Other: All systems not noted in ROS Statement are negative. Constitutional: Reports: as per HPI ENT: Denies: ear pain, throat pain Respiratory: Denies: cough, dyspnea Cardiovascular: Reports: chest pain. Denies: palpitations Gastrointestinal: Reports: abdominal pain. Denies: nausea, vomiting, diarrhea Genitourinary: Denies: urgency, dysuria, frequency Neurological: Denies: headache Past Medical History Past Medical History: Hypertension, Liver Disease, Seizure Disorder Additional Past Medical History / Comment(s): fatty liver disease, Alcohol abuse, cirrhosis, ascites History of Any Multi-Drug Resistant Organisms: MRSA Date of last positivie culture/infection: 01/15/21 MDRO Source:: MRSA LEG Past Surgical History: Orthopedic Surgery Additional Past Surgical History / Comment(s): rt hand, 2 lt shoulder, large volume paracentesis Past Anesthesia/Blood Transfusion Reactions: No Reported Reaction Past Psychological History: No Psychological Hx Reported Smoking Status: Never smoker Past Alcohol Use History: None Reported, Daily, Heavy Past Drug Use History: None Reported - Past Family History Mother Family Medical History: Hypertension Additional Family Medical History / Comment(s): Mother is living. Father Family Medical History: CVA/TIA Additional Family Medical History / Comment(s): Father is living. General Exam Limitations: altered mental status (secondary to intoxication) General appearance: alert, appears intoxicated Head exam: Present: atraumatic, normocephalic, normal inspection Eye exam: Present: scleral icterus Respiratory exam: Present: normal lung sounds bilaterally. Absent: respiratory distress, wheezes, rales, rhonchi, stridor Cardiovascular Exam: Present: regular rate, normal rhythm, normal heart sounds. Absent: systolic murmur, diastolic murmur, rubs, gallop, clicks GI/Abdominal exam: Present: distended (secondary to ascites), tenderness, normal bowel sounds Extremities exam: Present: other (3+ pitting edema in the left lower extremity) Neurological exam: Present: altered (secondary to intoxication) Skin exam: Present: warm, dry, intact, normal color. Absent: rash Course Vital Signs 04/24/21 14:35 Temperature 97.7 F Pulse Rate 72 Respiratory 18 Rate Blood Pressure 139/87 O2 Sat by Pulse 100 Oximetry Medical Decision Making - Medical Decision Making This is a 40 year old male who presents to the emergency department for alcohol withdrawals. Given patient's current alcohol level, it will take approximately 16 hours for him to detox. [place] protocol in place. Patient started on IV fluids at 50 mL/hr for rehydration. Based on the severity of the alcohol level, will plan to admit the patient for closer observation. Will also place a consult to IR for therapeutic paracentesis. This case was discussed in detail with the attending ED physician. Presentation, findings, and treatment plan discussed in detail as well. - Lab Data Result diagrams: 04/24/21 15:05 04/24/21 15:05 Lab Results 04/24/21 04/24/21 04/24/21 Range/Units 15:05 15:05 15:05 WBC 6.3 (3.8-10.6) k/uL RBC 3.57 L (4.30-5.90) m/uL Hgb 11.6 L (13.0-17.5) gm/dL Hct 34.4 L (39.0-53.0) % MCV 96.5 (80.0-100.0) fL MCH 32.7 (25.0-35.0) pg MCHC 33.8 (31.0-37.0) g/dL RDW 17.3 H (11.5-15.5) % Plt Count 50 L D (150-450) k/uL MPV 8.6 Neutrophils % (Manual) 40 % Lymphocytes % (Manual) 47 % Monocytes % (Manual) 8 % Eosinophils % (Manual) 5 % Neutrophils # (Manual) 2.52 (1.3-7.7) k/uL Lymphocytes # (Manual) 2.96 (1.0-4.8) k/uL Monocytes # (Manual) 0.50 (0-1.0) k/uL Eosinophils # (Manual) 0.32 (0-0.7) k/uL Nucleated RBCs 0 (0-0) /100 WBC Manual Slide Review Performed Anisocytosis Slight Macrocytosis Slight Target Cells Present Sodium 132 L (137-145) mmol/L Potassium 4.0 (3.5-5.1) mmol/L Chloride 97 L (98-107) mmol/L Carbon Dioxide 25 (22-30) mmol/L Anion Gap 10 mmol/L BUN 6 L (9-20) mg/dL Creatinine 0.74 (0.66-1.25) mg/dL Est GFR (CKD-EPI)AfAm >90 (>60 ml/min/1.73 sqM) Est GFR (CKD-EPI)NonAf >90 (>60 ml/min/1.73 sqM) Glucose 111 H (74-99) mg/dL Calcium 8.0 L (8.4-10.2) mg/dL Phosphorus (2.5-4.5) mg/dL Magnesium (1.6-2.3) mg/dL Total Bilirubin 3.9 H (0.2-1.3) mg/dL AST 130 H (17-59) U/L ALT 33 (4-49) U/L Alkaline Phosphatase 133 H (38-126) U/L Ammonia 44 H (<30) umol/L Total Protein 7.9 (6.3-8.2) g/dL Albumin 3.4 L (3.5-5.0) g/dL Serum Alcohol 394 H* mg/dL 04/24/21 Range/Units 15:05 WBC (3.8-10.6) k/uL RBC (4.30-5.90) m/uL Hgb (13.0-17.5) gm/dL Hct (39.0-53.0) % MCV (80.0-100.0) fL MCH (25.0-35.0) pg MCHC (31.0-37.0) g/dL RDW (11.5-15.5) % Plt Count (150-450) k/uL MPV Neutrophils % (Manual) % Lymphocytes % (Manual) % Monocytes % (Manual) % Eosinophils % (Manual) % Neutrophils # (Manual) (1.3-7.7) k/uL Lymphocytes # (Manual) (1.0-4.8) k/uL Monocytes # (Manual) (0-1.0) k/uL Eosinophils # (Manual) (0-0.7) k/uL Nucleated RBCs (0-0) /100 WBC Manual Slide Review Anisocytosis Macrocytosis Target Cells Sodium (137-145) mmol/L Potassium (3.5-5.1) mmol/L Chloride (98-107) mmol/L Carbon Dioxide (22-30) mmol/L Anion Gap mmol/L BUN (9-20) mg/dL Creatinine (0.66-1.25) mg/dL Est GFR (CKD-EPI)AfAm (>60 ml/min/1.73 sqM) Est GFR (CKD-EPI)NonAf (>60 ml/min/1.73 sqM) Glucose (74-99) mg/dL Calcium (8.4-10.2) mg/dL Phosphorus 3.7 (2.5-4.5) mg/dL Magnesium 1.6 (1.6-2.3) mg/dL Total Bilirubin (0.2-1.3) mg/dL AST (17-59) U/L ALT (4-49) U/L Alkaline Phosphatase (38-126) U/L Ammonia (<30) umol/L Total Protein (6.3-8.2) g/dL Albumin (3.5-5.0) g/dL Serum Alcohol mg/dL - EKG Data EKG shows normal: sinus rhythm When compared to previous EKG there are: no significant change Interpretation: no acute changes, normal EKG Disposition Clinical Impression: Alcohol withdrawal syndrome, Alcoholic intoxication Disposition: ADMITTED IP TO THIS [facility] Referrals: Carlos Enrique Crowder MD [Primary Care Provider] - 1-2 days
[2021-04-24 15:14] LABS: Anisocytosis Slight; HCT 34.4 % (39.0-53.0); HGB 11.6 gm/dL (13.0-17.5); MCH 32.7 pg (25.0-35.0); MCHC 33.8 g/dL (31.0-37.0); MCV 96.5 fL (80.0-100.0); Macrocytosis Slight; Mean Platelet Volume 8.6; RBC 3.57 m/uL (4.30-5.90); RDW 17.3 % (11.5-15.5); WBC 6.3 k/uL (3.8-10.6)
[2021-04-24] MEDS ORDERED: LORazepam 2 MG/ML INJ IV PRN ×2 (15:14)
[2021-04-24] MEDS ORDERED: THIAMINE 100 MG/ML 2 ML VIAL IM STA (15:14)
[2021-04-24 15:25] LABS: ALT 33 U/L (4-49); AST 130 U/L (17-59); African American GFR (CKD) >90 (>60 ml/min/1.73 sqM); Albumin 3.4 g/dL (3.5-5.0); Alkaline Phosphatase 133 U/L (38-126); Anion Gap 10 mmol/L; Blood Urea Nitrogen 6 mg/dL (9-20); Carbon Dioxide 25 mmol/L (22-30); Chloride 97 mmol/L (98-107); Glucose 111 mg/dL (74-99); Non-African American GFR(CKD) >90 (>60 ml/min/1.73 sqM); Sodium 132 mmol/L (137-145); Total Bilirubin 3.9 mg/dL (0.2-1.3); Total Protein 7.9 g/dL (6.3-8.2)
[2021-04-24 15:43] LABS: Alcohol 394 mg/dL
[2021-04-24 16:14] LABS: Eosinophils # (M) 0.32 k/uL (0-0.7); Lymphocytes # (M) 2.96 k/uL (1.0-4.8); Neutrophils # (M) 2.52 k/uL (1.3-7.7); Neutrophils % (M) 40 %; Nucleated Red Blood Cells 0 /100 WBC (0-0); Platelet Count 50 k/uL (150-450); Target Cells Present; Total Cells Counted 100
[2021-04-24 16:38] LABS: Magnesium 1.6 mg/dL (1.6-2.3); Phosphorus 3.7 mg/dL (2.5-4.5)
[2021-04-24] MEDS: SODIUM CHLORIDE 0.9% 1,000 ML IV SCH (16:44)
[2021-04-24] MEDS ORDERED: oxyCODONE-APAP 5-325MG 1 EACH TAB PO PRN (18:05)
[2021-04-24] MEDS ORDERED: MELATONIN 3 MG TABLET PO PRN (18:05)
[2021-04-24] MEDS ORDERED: ONDANSETRON 4 MG/2 ML VIAL IVP PRN (18:05)
[2021-04-24] MEDS ORDERED: HYDROcodone/APAP 5-325MG 1 EACH TAB PO PRN (18:05)
[2021-04-24] MEDS ORDERED: NALOXONE 0.4 MG/ML 1 ML VIAL IV PRN (18:05)
[2021-04-24] MEDS ORDERED: ACETAMINOPHEN TAB 325 MG TAB PO PRN (18:05)
[2021-04-25] MEDS: THIAMINE 100 MG TAB PO SCH ×2 (07:23→17:16)
[2021-04-25] MEDS: chlordiazePOXIDE 25 MG CAP PO SCH ×4 (08:28→20:50)
[2021-04-25] MEDS: LORazepam 2 MG/ML INJ IV PRN ×3 (08:37→17:21)
--- NOTE | 2021-04-25 10:02 | US ---
EXAMINATION TYPE: US abdomen limited DATE OF EXAM: 04/25/2021 COMPARISON: NONE CLINICAL HISTORY: Ascites. No ascites seen IMPRESSION: No evidence for ascites.
[2021-04-25] MEDS ORDERED: LACTULOSE 20 GM/30 ML CUP PO PRN (10:07)
--- NOTE | 2021-04-25 10:14 | P.HPIM ---
History of Present Illness H&P Date: 04/25/21 Chief Complaint: Confusion 40-year-old man with medical history of alcoholic cirrhosis, hypertension presented with an episode of confusion. Patient presented last night with his girlfriend, who brought him in because of episodes of significant confusion. By the time of my evaluation, confusion has resolved. Of note, on presentation, patient's alcohol level was 394. Patient continues to drink 12-20 beers daily, and is now concerned about his drinking because he knows he has cirrhosis, and has to stop drinking for a year to be eligible for liver transplant. Patient is committed to trying to maintain sobriety. However, he is concerned about going through alcohol withdrawal, as he has had severe withdrawal symptoms in the past including seizures, hallucinations. Therefore, today he requests to be supervised through detox. Currently, patient denies fevers, chills, nausea, vomiting, chest pain, palpitations, syncope, presyncope, cough, dyspnea, abdominal pain, constipation, diarrhea, numbness/weakness of extremities. Denies hallucinations. Currently, patient is afebrile, 122/71, heart rate 68, 97% on room air. Admission labs were reviewed, CBC is notable for low hemoglobin down to 11.6, low platelets down to 50, appear to be his baseline. Chemistries are remarkable for hyponatremia down to 132, LFTs remarkable for AST 130, ALT of 33, alkaline phosphatase 133. Ammonia level was 44. Covid was negative. EKG demonstrates normal sinus rhythm with prolonged QT. Abdominal ultrasound was negative for ascites. All Systems reviewed and pertinent positives and negatives noted in HPI, all other symptoms are negative Gen: awake, alert HEENT: normocephalic, atraumatic, good hearing acuity, moist mucous membranes Resp: good air exchange, breathing comfortably with no accessory muscle use CVS: good distal perfusion x 4, GI: soft, NTTP, ND : no SPT, no CVAT, eris catheter not present MSK: no pitting edema, no clubbing Neuro: non-focal, moving all extremities Psych: cooperative, euthymic mood Labs and imaging reviewed and summarized above Assessment/plan: Alcohol withdrawal syndrome Alcohol dependence, severe Alcoholic cirrhosis Elevated ammonia -Admit inpatient, telemetry -CIWA protocol, Ativan when necessary, Librium 25 mg 4 times a day -Thiamine, folate, multivitamin -Cessation counseling -Lactulose when necessary, in case of encephalopathy -Continue home Lasix, spironolactone -Zofran when necessary Hypertension -Resume home metoprolol Patient is a full code DVT prophylaxis with enoxaparin Past Medical History Past Medical History: Hypertension, Liver Disease, Seizure Disorder Additional Past Medical History / Comment(s): fatty liver disease, Alcohol abuse, cirrhosis, ascites History of Any Multi-Drug Resistant Organisms: MRSA Date of last positivie culture/infection: 01/15/21 MDRO Source:: MRSA LEG Past Surgical History: Orthopedic Surgery Additional Past Surgical History / Comment(s): rt hand, 2 lt shoulder, large volume paracentesis Past Anesthesia/Blood Transfusion Reactions: No Reported Reaction Past Psychological History: No Psychological Hx Reported Additional Psychological History / Comment(s): Pt resides with a friend. He is on a low sodium fluid restriction diet. He is independent. Smoking Status: Never smoker Past Alcohol Use History: None Reported, Daily, Heavy Additional Past Alcohol Use History / Comment(s): Pt states he has cut down to 10-12 beers a day but in the past drank much more than this. Past Drug Use History: None Reported - Past Family History Mother Family Medical History: Hypertension Additional Family Medical History / Comment(s): Mother is living. Father Family Medical History: CVA/TIA Additional Family Medical History / Comment(s): Father is living. Medications and Allergies Home Medications Medication Instructions Recorded Confirmed Type RX: Pantoprazole Sodium [Protonix] 40 mg PO AC-BID 04/11/20 04/24/21 History RX: Metoprolol Tartrate [Lopressor] 50 mg PO BID #60 tab 04/12/20 04/24/21 Rx RX: Spironolactone [Aldactone] 100 mg PO DAILY #30 tab 04/12/20 04/24/21 Rx RX: Furosemide [Lasix] 40 mg PO BID 06/24/20 04/24/21 History RX: Thiamine [Vitamin B-1] 100 mg PO DAILY #30 tab 06/25/20 04/24/21 Rx RX: Lactulose 10 gm PO DAILY PRN 04/24/21 04/24/21 History RX: Magnesium Oxide [Mag-Ox] 400 mg PO DAILY 04/24/21 04/24/21 History Sildenafil Citrate [Sildenafil] 20 mg PO DAILY PRN 04/24/21 04/24/21 History Allergies Allergy/AdvReac Type Severity Reaction Status Date / Time morphine AdvReac Hallucinati Verified 04/24/21 17:47 ons Physical Exam Osteopathic Statement: *. No significant issues noted on an osteopathic structural exam other than those noted in the History and Physical/Consult. Vitals: Vital Signs Temp Pulse Pulse Resp BP BP Pulse Ox 04/25/21 07:03 97.8 F 68 18 122/71 97 04/25/21 01:45 97.7 F 68 14 118/69 99 04/24/21 23:02 98.0 F 69 16 131/80 100 04/24/21 22:26 79 18 107/84 96 04/24/21 19:00 71 16 111/72 99 04/24/21 14:35 97.7 F 72 18 139/87 100 Intake and Output 04/24/21 04/25/21 04/25/21 22:59 06:59 14:59 Other: # Voids 4 Weight 114.305 kg Results CBC & Chem 7: 04/24/21 15:05 04/24/21 15:05 Labs: Abnormal Lab Results - Last 24 Hours (Table) 04/24/21 04/24/21 04/24/21 Range/Units 15:05 15:05 15:05 RBC 3.57 L (4.30-5.90) m/uL Hgb 11.6 L (13.0-17.5) gm/dL Hct 34.4 L (39.0-53.0) % RDW 17.3 H (11.5-15.5) % Plt Count 50 L D (150-450) k/uL Sodium 132 L (137-145) mmol/L Chloride 97 L (98-107) mmol/L BUN 6 L (9-20) mg/dL Glucose 111 H (74-99) mg/dL Calcium 8.0 L (8.4-10.2) mg/dL Total Bilirubin 3.9 H (0.2-1.3) mg/dL AST 130 H (17-59) U/L Alkaline Phosphatase 133 H (38-126) U/L Ammonia 44 H (<30) umol/L Albumin 3.4 L (3.5-5.0) g/dL Serum Alcohol 394 H* mg/dL
[2021-04-25] MEDS: METOPROLOL TARTRATE 50 MG TAB PO SCH ×2 (11:25→20:50)
[2021-04-25] MEDS: PANTOPRAZOLE 40 MG TABLET PO SCH ×2 (11:25→17:16)
[2021-04-25] MEDS: FUROSEMIDE 40 MG TAB PO SCH ×2 (11:26→17:16)
[2021-04-25] MEDS: SPIRONOLACTONE 25 MG TAB PO SCH (11:26)
[2021-04-25] MEDS: SODIUM CHLORIDE 0.9% 1,000 ML IV SCH (19:00)
[2021-04-26] MEDS: LORazepam 2 MG/ML INJ IV PRN ×3 (00:30→17:37)
[2021-04-26] MEDS: PANTOPRAZOLE 40 MG TABLET PO SCH ×2 (06:56→17:31)
[2021-04-26] MEDS: THIAMINE 100 MG TAB PO SCH ×2 (06:56→17:31)
[2021-04-26] MEDS: FUROSEMIDE 40 MG TAB PO SCH ×2 (06:57→15:48)
[2021-04-26] MEDS: MAGNESIUM OXIDE 400 MG TAB PO SCH (06:57)
[2021-04-26] MEDS: METOPROLOL TARTRATE 50 MG TAB PO SCH ×2 (06:57→21:17)
[2021-04-26] MEDS: SPIRONOLACTONE 25 MG TAB PO SCH (06:57)
[2021-04-26] MEDS: chlordiazePOXIDE 25 MG CAP PO SCH ×4 (06:57→21:17)
[2021-04-26] MEDS: SODIUM CHLORIDE 0.9% 1,000 ML IV SCH (06:58)
--- NOTE | 2021-04-26 11:52 | P.PN ---
Subjective Progress Note Date: 04/26/21 No new complaints today, pt has AKIN symptoms controlled. Objective - Vital Signs Vital signs: Vital Signs Temp 98.3 F 04/26/21 07:43 Pulse 73 04/26/21 07:43 Resp 18 04/26/21 07:43 BP 154/91 04/26/21 07:43 Pulse Ox 97 04/26/21 07:43 Intake & Output 04/25/21 04/26/21 04/26/21 18:59 06:59 18:59 Intake Total 600 Balance 600 Intake: Intake, IV Titration 600 Amount Sodium Chloride 0.9% 1, 600 000 ml @ 50 mls/hr IV . Q20H AMANDA Rx#:[id number] Other: Voiding Method Toilet # Voids 3 - Exam Gen: awake, alert HEENT: normocephalic, atraumatic, good hearing acuity, moist mucous membranes Resp: good air exchange, breathing comfortably with no accessory muscle use CVS: good distal perfusion x 4, GI: soft, NTTP, ND : no SPT, no CVAT, reis catheter not present MSK: no pitting edema, no clubbing Neuro: non-focal, moving all extremities Psych: cooperative, euthymic mood - Labs CBC & Chem 7: 04/24/21 15:05 04/24/21 15:05 Assessment and Plan Assessment: Alcohol withdrawal syndrome Alcohol dependence, severe Alcoholic cirrhosis Elevated ammonia -Admit inpatient, telemetry -WA protocol, Ativan when necessary, Librium 25 mg 4 times a day -Thiamine, folate, multivitamin -Cessation counseling -Lactulose when necessary, in case of encephalopathy -Continue home Lasix, spironolactone -Zofran when necessary Hypertension -Resume home metoprolol Patient is a full code DVT prophylaxis with enoxaparin
[2021-04-26] MEDS ORDERED: ARTIFICIAL TEARS-HYPROMELLOSE DROPS 15 ML BTL BOTH EYES PRN (16:37)
[2021-04-26 21:11] VITALS: RESP 17
[2021-04-27] MEDS: THIAMINE 100 MG TAB PO SCH (06:52)
[2021-04-27] MEDS: chlordiazePOXIDE 25 MG CAP PO SCH (06:52)
[2021-04-27] MEDS: PANTOPRAZOLE 40 MG TABLET PO SCH (06:52)
[2021-04-27] MEDS: METOPROLOL TARTRATE 50 MG TAB PO SCH (06:52)
[2021-04-27] MEDS: SODIUM CHLORIDE 0.9% 1,000 ML IV SCH (06:53)
[2021-04-27] MEDS: MAGNESIUM OXIDE 400 MG TAB PO SCH (06:53)
[2021-04-27] MEDS: FUROSEMIDE 40 MG TAB PO SCH (06:53)
[2021-04-27] MEDS: SPIRONOLACTONE 25 MG TAB PO SCH (06:53)
[2021-04-27 07:25] VITALS: BP 121/75; PULSE 68; TEMP 98.3
[2021-04-27 09:12] LABS: Magnesium 1.6 mg/dL (1.5-2.4)
[2021-04-27 10:14] LABS: African American GFR (CKD) 125.6 (60.0-200.0); Albumin 3.1 g/dL (3.8-4.9); Albumin/Globulin Ratio 0.82 (1.60-3.17); Anion Gap 12.1 mmol/L (10.00-18.00); BUN/Creat Ratio 13.57 Ratio (12.00-20.00); Bilirubin, Conjugated 2.34 mg/dL (0.20-0.40); Bilirubin,Unconjugated 2.77 mg/dL (0.20-1.00); Blood Urea Nitrogen 11.9 mg/dL (9.0-27.0); Calcium 8.5 mg/dL (8.7-10.3); Carbon Dioxide 21.4 mmol/L (20.0-27.5); Globulin 3.8 g/dL (1.6-3.3); Non-African American GFR(CKD) 108.4 (60.0-200.0); Potassium 3.5 mmol/L (3.5-5.5); Total Bilirubin 5.1 mg/dL (0.30-1.20); Total Protein 6.9 g/dL (6.2-8.2)
[2021-04-27 11:08] LABS: Basophils # (A) 0.07 X 10*3/uL (0.00-0.10); Basophils % (A) 1.4 %; Eosinophils # (A) 0.25 X 10*3/uL (0.04-0.35); HCT 33.3 % (39.6-50.0); HGB 10.9 g/dL (13.0-17.0); Immature Grans, Automated 0.2 %; Immature Platelet Fraction 6.9 % (1.1-6.1); Lymphocytes # (A) 1.64 X 10*3/uL (0.90-5.00); Lymphocytes % (A) 32.7 %; MCH 30.9 pg (27.0-32.0); MCHC 32.7 g/dL (32.0-37.0); MCV 94.3 fL (80.0-97.0); Mean Platelet Volume 11.6 fL (9.5-12.2); Monocytes # (A) 0.93 X 10*3/uL (0.20-1.00); Monocytes % (A) 18.5 %; NRBC Per 100 WBC 0 /100 WBCS (0.0-0.0); Neutrophils # (A) 2.12 X 10*3/uL (1.80-7.70); Neutrophils % (A) 42.2 %; Platelet Count 50 X 10*3/uL (140-440); RBC 3.53 X 10*6/uL (4.40-5.60); RDW 19.6 % (11.5-14.5); WBC 5.02 X 10*3/uL (4.50-10.00)
--- NOTE | 2021-04-27 11:25 | P.DS ---
Providers Date of admission: 04/24/21 18:05 Expected date of discharge: 04/27/21 Attending physician: Sandra Barbour MD Primary care physician: Carlos Enrique Crowder Hospital Course: Alcohol withdrawal syndrome Alcohol dependence, severe Alcoholic cirrhosis Elevated ammonia -Admitted inpatient, telemetry with AKIN. Placed on CIWA protocol with ativan PRN. Also given librium 25mg QID. Thiamine, folate, MVI given as well. Pt was counseled on cessation of ETOH. He is motivated to d/c drinking and get onto the liver transplantation list after 1 year of sobriety. His home lasix and spironolactone were continued. Abd US was done to r/o ascites and was negative. EKG showed NSR with prolonged QT. On d/c he was prescribed antabuse and counciled on its effects when combined with ETOH. Pt was amenable to trying this deterrent. Hypertension -Resumed home metoprolol with no changes. Assessment: Gen: awake, alert HEENT: normocephalic, atraumatic, good hearing acuity, moist mucous membranes Resp: good air exchange, breathing comfortably with no accessory muscle use CVS: good distal perfusion x 4, GI: soft, NTTP, ND : no SPT, no CVAT, reis catheter not present MSK: no pitting edema, no clubbing Neuro: non-focal, moving all extremities Psych: cooperative, euthymic mood Patient Condition at Discharge: Good Plan - Discharge Summary Discharge Rx Participant: No New Discharge Prescriptions: New Acetaminophen Tab [Tylenol] 650 mg PO Q6HR PRN tab PRN Reason: Mild Pain Or Fever > 100.5 Disulfiram [Antabuse] 250 mg PO DAILY #30 tablet Continue Pantoprazole Sodium [Protonix] 40 mg PO AC-BID Spironolactone [Aldactone] 100 mg PO DAILY #30 tab Metoprolol Tartrate [Lopressor] 50 mg PO BID #60 tab Sildenafil Citrate 20 mg PO DAILY PRN PRN Reason: E.D. Furosemide [Lasix] 40 mg PO BID Thiamine [Vitamin B-1] 100 mg PO DAILY #30 tab Magnesium Oxide [Mag-Ox] 400 mg PO DAILY Lactulose 10 gm PO DAILY PRN PRN Reason: Constipation Discharge Medication List Pantoprazole Sodium [Protonix] 40 mg PO AC-BID 04/11/20 [History] Metoprolol Tartrate [Lopressor] 50 mg PO BID #60 tab 04/12/20 [Rx] Spironolactone [Aldactone] 100 mg PO DAILY #30 tab 04/12/20 [Rx] Furosemide [Lasix] 40 mg PO BID 06/24/20 [History] Thiamine [Vitamin B-1] 100 mg PO DAILY #30 tab 06/25/20 [Rx] Lactulose 10 gm PO DAILY PRN 04/24/21 [History] Magnesium Oxide [Mag-Ox] 400 mg PO DAILY 04/24/21 [History] Sildenafil Citrate 20 mg PO DAILY PRN 04/24/21 [History] Acetaminophen Tab [Tylenol] 650 mg PO Q6HR PRN tab 04/27/21 [Rx] Disulfiram [Antabuse] 250 mg PO DAILY #30 tablet 04/27/21 [Rx] Follow up Appointment(s)/Referral(s): Carlos Enrique Crowder MD [Primary Care Provider] - 1-2 days Discharge Disposition: HOME SELF-CARE
== END 2021-04-27 12:36 | disposition home or self-care (01) | DRG 897 ==
LOC: EC 14:33 → 4SSUR 18:05
PROVIDERS: ADMIT Internal Medicine; ATTEND Internal Medicine
DX: F10.239 Alcohol dependence with withdrawal, unspecified (principal); E87.1 Hypo-osmolality and hyponatremia; R07.9 Chest pain, unspecified; K70.0 Alcoholic fatty liver; G40.909 Epilepsy, unspecified, not intractable, without status epilepticus; K70.30 Alcoholic cirrhosis of liver without ascites; I10 Essential (primary) hypertension; Z20.822 Contact with and (suspected) exposure to COVID-19; Y90.8 Blood alcohol level of 240 mg/100 ml or more; Z79.899 Other long term (current) drug therapy; Z82.3 Family history of stroke; Z82.49 Family history of ischemic heart disease and other diseases of the circulatory system; F10.229 Alcohol dependence with intoxication, unspecified
CPT/HCPCS: 36415; 76705; 80048; 80053; 80076; 80320; 82140; 83735; 84100; 85025; 87635; 93005; 96372; 96374; 99285

== ENCOUNTER 2021-05-30 11:40 | Observation (INO) | payer OTHER ==
[2021-05-30] MEDS ORDERED: SODIUM CHLORIDE 0.9% 1,000 ML IV ONE (14:53)
[2021-05-30 15:16] LABS: Anisocytosis Slight; Basophils # (A) 0.1 k/uL (0-0.2); Basophils % (A) 1 %; Eosinophils # (A) 0.1 k/uL (0-0.7); Eosinophils % (A) 2 %; HCT 39.9 % (39.0-53.0); HGB 13.3 gm/dL (13.0-17.5); Lymphocytes # (A) 2.3 k/uL (1.0-4.8); Lymphocytes % (A) 34 %; MCH 32.5 pg (25.0-35.0); MCHC 33.4 g/dL (31.0-37.0); MCV 97.3 fL (80.0-100.0); Mean Platelet Volume 9.1; Monocytes # (A) 0.5 k/uL (0-1.0); Monocytes % (A) 7 %; Neutrophils # (A) 3.6 k/uL (1.3-7.7); Neutrophils % (A) 54 %; RDW 16.5 % (11.5-15.5); WBC 6.7 k/uL (3.8-10.6)
--- NOTE | 2021-05-30 15:16 | ED ---
General Adult HPI - General Chief complaint: Nausea/Vomiting/Diarrhea Stated complaint: Vomiting/AMS Time Seen by Provider: 05/30/21 14:47 Source: patient, RN notes reviewed, old records reviewed Mode of arrival: ambulatory Limitations: no limitations - History of Present Illness Initial comments: 40 yo male presenting for evaluation of nausea vomiting, abnormal EKG at the primary care office. Patient has previous history of alcohol abuse and liver c irrhosis. He has abstained from alcohol for the past one month. He states he was previously a beer drinker. He states that his jaundice has improved over the past month. He's had several days of persistent nausea and vomiting. No diarrhea. Minimal abdominal pain. No fevers. - Related Data Home Medications Medication Instructions Recorded Confirmed Lactulose 10 gm PO DAILY 04/24/21 05/30/21 Magnesium Oxide [Mag-Ox] 400 mg PO DAILY 04/24/21 05/30/21 Sildenafil Citrate 20 mg PO DAILY PRN 04/24/21 05/30/21 Clindamycin Phosphate [Clindagel 1 applic TOPICAL BID 05/30/21 05/30/21 1%] FLUoxetine HCL [PROzac] 10 mg PO DAILY 05/30/21 05/30/21 Folic Acid 2 mg PO DAILY 05/30/21 05/30/21 Furosemide [Lasix] 40 mg PO DAILY 05/30/21 05/30/21 Melatonin 10 mg PO HS 05/30/21 05/30/21 Nystatin/Triamcin Cream [Mycolog 1 applic TOPICAL BID PRN 05/30/21 05/30/21 100,000-0.1 Unit/gm-% Cream] Vitamin E (Dl,Tocopheryl Acet) 400 unit PO DAILY 05/30/21 05/30/21 [Vitamin E (400 Iu = 180 mg)] Previous Rx's Medication Instructions Recorded Metoprolol Tartrate [Lopressor] 50 mg PO BID #60 tab 04/12/20 Spironolactone [Aldactone] 100 mg PO DAILY #30 tab 04/12/20 Disulfiram [Antabuse] 250 mg PO DAILY #30 tablet 04/27/21 Allergies Allergy/AdvReac Type Severity Reaction Status Date / Time morphine AdvReac Hallucinati Verified 05/30/21 15:48 ons Review of Systems ROS Statement: Those systems with pertinent positive or pertinent negative responses have been documented in the HPI. ROS Other: All systems not noted in ROS Statement are negative. Past Medical History Past Medical History: Hypertension, Liver Disease, Seizure Disorder Additional Past Medical History / Comment(s): fatty liver disease, Alcohol abuse, cirrhosis, ascites History of Any Multi-Drug Resistant Organisms: MRSA Date of last positivie culture/infection: 01/15/21 MDRO Source:: MRSA LEG Past Surgical History: Orthopedic Surgery Additional Past Surgical History / Comment(s): rt hand, 2 lt shoulder, large volume paracentesis Past Anesthesia/Blood Transfusion Reactions: No Reported Reaction Past Psychological History: No Psychological Hx Reported Smoking Status: Never smoker Past Alcohol Use History: None Reported, Daily, Heavy Past Drug Use History: None Reported - Past Family History Mother Family Medical History: Hypertension Additional Family Medical History / Comment(s): Mother is living. Father Family Medical History: CVA/TIA Additional Family Medical History / Comment(s): Father is living. General Exam Limitations: no limitations General appearance: alert, in no apparent distress Head exam: Present: atraumatic, normocephalic Eye exam: Present: scleral icterus ENT exam: Present: mucous membranes dry Neck exam: Present: normal inspection. Absent: tenderness, meningismus Respiratory exam: Present: normal lung sounds bilaterally. Absent: respiratory distress, wheezes Cardiovascular Exam: Present: regular rate, normal rhythm GI/Abdominal exam: Present: soft. Absent: distended, tenderness, guarding Extremities exam: Present: normal inspection, normal capillary refill. Absent: pedal edema Neurological exam: Present: alert, oriented X3, CN II-XII intact. Absent: motor sensory deficit Skin exam: Present: warm, dry, intact Course Vital Signs 05/30/21 11:48 Temperature 98.2 F Pulse Rate 88 Respiratory 20 Rate Blood Pressure 162/104 O2 Sat by Pulse 99 Oximetry EKG Findings - EKG Comments: EKG Findings:: Sinus rhythm short WY, prolonged QT, abnormal EKG, rate is 68, W[place] interval 92, QRS duration 105, QTC long at 503 abnormal T wave morphology. Medical Decision Making - Medical Decision Making 40-year-old male with dehydration, prolonged QT. Hypomagnesemia. Additional laboratory studies do represent liver failure however these are relatively stable compared to prior. He is awaiting transplant list referral. He does not have any new active issues with his liver. I do recommend the patient stay at this institution for hydration, likely replacement and telemetry. He is discussed with [facility], will accept. - Lab Data Result diagrams: 05/30/21 15:07 05/30/21 15:07 Lab Results 05/30/21 05/30/21 05/30/21 Range/Units 15:07 15:07 15:07 WBC 6.7 (3.8-10.6) k/uL RBC 4.10 L (4.30-5.90) m/uL Hgb 13.3 (13.0-17.5) gm/dL Hct 39.9 (39.0-53.0) % MCV 97.3 (80.0-100.0) fL MCH 32.5 (25.0-35.0) pg MCHC 33.4 (31.0-37.0) g/dL RDW 16.5 H (11.5-15.5) % Plt Count 80 L D (150-450) k/uL MPV 9.1 Neutrophils % 54 % Lymphocytes % 34 % Monocytes % 7 % Eosinophils % 2 % Basophils % 1 % Neutrophils # 3.6 (1.3-7.7) k/uL Lymphocytes # 2.3 (1.0-4.8) k/uL Monocytes # 0.5 (0-1.0) k/uL Eosinophils # 0.1 (0-0.7) k/uL Basophils # 0.1 (0-0.2) k/uL Manual Slide Review Performed Anisocytosis Slight PT 19.8 H (9.0-12.0) sec INR 2.0 H (<1.2) APTT 30.0 (22.0-30.0) sec Sodium 133 L (137-145) mmol/L Potassium 3.6 (3.5-5.1) mmol/L Chloride 99 (98-107) mmol/L Carbon Dioxide 22 (22-30) mmol/L Anion Gap 12 mmol/L BUN 10 (9-20) mg/dL Creatinine 0.87 (0.66-1.25) mg/dL Est GFR (CKD-EPI)AfAm >90 (>60 ml/min/1.73 sqM) Est GFR (CKD-EPI)NonAf >90 (>60 ml/min/1.73 sqM) Glucose 103 H (74-99) mg/dL Lactic Ac Sepsis Rflx Plasma Lactic Acid Adiel (0.7-2.0) mmol/L Calcium 8.6 (8.4-10.2) mg/dL Magnesium 1.3 L (1.6-2.3) mg/dL Total Bilirubin 6.3 H (0.2-1.3) mg/dL AST 138 H (17-59) U/L ALT 71 H (4-49) U/L Alkaline Phosphatase 129 H (38-126) U/L Ammonia (<30) umol/L Total Protein 8.6 H (6.3-8.2) g/dL Albumin 3.5 (3.5-5.0) g/dL Serum Alcohol <10 mg/dL 05/30/21 05/30/21 Range/Units 15:07 15:42 WBC (3.8-10.6) k/uL RBC (4.30-5.90) m/uL Hgb (13.0-17.5) gm/dL Hct (39.0-53.0) % MCV (80.0-100.0) fL MCH (25.0-35.0) pg MCHC (31.0-37.0) g/dL RDW (11.5-15.5) % Plt Count (150-450) k/uL MPV Neutrophils % % Lymphocytes % % Monocytes % % Eosinophils % % Basophils % % Neutrophils # (1.3-7.7) k/uL Lymphocytes # (1.0-4.8) k/uL Monocytes # (0-1.0) k/uL Eosinophils # (0-0.7) k/uL Basophils # (0-0.2) k/uL Manual Slide Review Anisocytosis PT (9.0-12.0) sec INR (<1.2) APTT (22.0-30.0) sec Sodium (137-145) mmol/L Potassium (3.5-5.1) mmol/L Chloride (98-107) mmol/L Carbon Dioxide (22-30) mmol/L Anion Gap mmol/L BUN (9-20) mg/dL Creatinine (0.66-1.25) mg/dL Est GFR (CKD-EPI)AfAm (>60 ml/min/1.73 sqM) Est GFR (CKD-EPI)NonAf (>60 ml/min/1.73 sqM) Glucose (74-99) mg/dL Lactic Ac Sepsis Rflx Y Plasma Lactic Acid Adiel 2.1 H* (0.7-2.0) mmol/L Calcium (8.4-10.2) mg/dL Magnesium (1.6-2.3) mg/dL Total Bilirubin (0.2-1.3) mg/dL AST (17-59) U/L ALT (4-49) U/L Alkaline Phosphatase (38-126) U/L Ammonia <9 (<30) umol/L Total Protein (6.3-8.2) g/dL Albumin (3.5-5.0) g/dL Serum Alcohol mg/dL Disposition Clinical Impression: Dehydration, Hypomagnesemia, Prolonged QT interval Disposition: ADMITTED IP TO THIS [facility] Condition: Stable Is patient prescribed a controlled substance at d/c from ED?: No Referrals: Carlos Enrique Crowder MD [Primary Care Provider] - 1-2 days Decision to Admit Reason: Admit from EC Decision Date: 05/30/21 Decision Time: 17:56
[2021-05-30 15:25] LABS: Prothrombin Time 19.8 sec (9.0-12.0)
[2021-05-30 15:30] LABS: ALT 71 U/L (4-49); AST 138 U/L (17-59); African American GFR (CKD) >90 (>60 ml/min/1.73 sqM); Albumin 3.5 g/dL (3.5-5.0); Alcohol <10 mg/dL; Alkaline Phosphatase 129 U/L (38-126); Anion Gap 12 mmol/L; Blood Urea Nitrogen 10 mg/dL (9-20); Calcium 8.6 mg/dL (8.4-10.2); Carbon Dioxide 22 mmol/L (22-30); Chloride 99 mmol/L (98-107); Glucose 103 mg/dL (74-99); Magnesium 1.3 mg/dL (1.6-2.3); Non-African American GFR(CKD) >90 (>60 ml/min/1.73 sqM); Potassium 3.6 mmol/L (3.5-5.1); Sodium 133 mmol/L (137-145); Total Bilirubin 6.3 mg/dL (0.2-1.3); Total Protein 8.6 g/dL (6.3-8.2)
[2021-05-30 15:42] LABS: Lactic Acid, Venous 2.1 mmol/L (0.7-2.0)
[2021-05-30 15:55] LABS: Platelet Count 80 k/uL (150-450)
[2021-05-30] MEDS: MAGNESIUM SULFATE-D5W PMX 1 GM in DEXTROSE/WATER 1 100ML.BAG IVPB SCH ×2 (16:49→18:24)
[2021-05-30] MEDS ORDERED: 0.9% NACL WITH KCL 20 MEQ/L 1,000 ML IV ONE (17:15)
[2021-05-30] MEDS ORDERED: NALOXONE 0.4 MG/ML 1 ML VIAL IV PRN (17:51)
[2021-05-30] MEDS ORDERED: PANTOPRAZOLE 40 MG/10 ML VIAL IVP STA (18:27)
[2021-05-30] MEDS ORDERED: SCOPOLAMINE 1 MG/72 HR PATCH TRANSDERM STA (18:32)
[2021-05-30] MEDS ORDERED: HYDROcodone/APAP 5-325MG 1 EACH TAB PO PRN (18:33)
[2021-05-30] MEDS ORDERED: ACETAMINOPHEN TAB 325 MG TAB PO PRN (18:33)
[2021-05-30] MEDS ORDERED: MELATONIN 3 MG TABLET PO PRN (18:33)
--- NOTE | 2021-05-30 18:48 | P.HPIM ---
History of Present Illness H&P Date: 05/30/21 Chief Complaint: vomiting Patient is a 40-year-old male with alcoholic cirrhosis with recurrent ascites, hypertension, seizure disorder who presented to the ER with complaints of nausea and vomiting and an abnormal EKG at his primary care office. On arrival to the ER he was hypertensive with blood pressure of 162/104 initial laboratory analysis is consistent with his known cirrhosis and a platelet count of 80, INR 2, bilirubin 6.3, AST 138, and ALT 71. was given magnesium and potassium replacements. Arrangements are made for admission. EKG was done which demo nstrated a short MD interval along with a QT interval of 503. Old EKGs reviewed and patient has a presistently prolonged QT. Patient seen and examined at bedside. He reports that he stopped drinking approximately one month ago. His troponin was Dr. Crowder, Dr. Alexis, and hepatology out of [place]. He reports that 3-4 days ago he started having intractable nausea and vomiting. He has not been able to tolerate liquids or solids. He has had some right-sided abdominal pain. He reports inability to sleep due to the nausea and vomiting. He states he has been taking all his medications as prescribed including lactulose. He however did run out of magnesium supplementation several days ago. Reports that he has had some depression since coming off of alcohol and has states he does not leave his bed some days. He denies any recent fevers or chills. He denies any abnormal diarrhea. He denies any dysuria. He denies any lower extremity edema. He states it has been several months since he had his last paracentesis. Pertinent positives and negatives as discussed in HPI, a complete review of systems was performed and all other systems are negative. General: Ill appearing, no distress, appears at stated age Derm: + Jaundiced, warm, dry Head: atraumatic, normocephalic, symmetric Eyes: EOMI, no lid lag,+icteric sclera, pupils equal round reactive to light ENT: Nose and ears atraumatic, no thrush, no pharyngeal erythema Neck: No thyromegaly, no cervical lymphadenopathy, trachea midline, supple Mouth: no lip lesion, mucus membranes moist Cardiovascular: S1S2 reg, no murmur, positive posterior tibial pulse bilateral, no edema, capillary refill less than 2 seconds Lungs: clear to ascultation bilateral, no ronchi, no rales, no wheeze, no accessory muscle use Abdominal: soft, + tender to palpation right lower quadrant, no guarding, no appreciable organomegaly, normal bowel sounds Ext: no gross muscle atrophy, muscle strength muscle strength 5 out of 5 in all 4 extremities, no contractures Neuro: CN II-XI grossly intact, light touch intact all 4 extremities, finger to nose within normal limits, Psych: Alert, oriented, appropriate affect Assessment/Plan: Intractable nausea and vomiting -IV fluids patient was given 1 L with history of cirrhosis will not continue with IV fluids at this time -Continue that her nausea and vomiting as it does not prolonged QT -CT abdomen and pelvis to rule out obstruction, ileus, pancreatic lesion -Hold high-dose folic acid Compensated cirrhosis, alcohol induced History of gastric varices -IV Protonix -Monitor closely patient is aware that if he develops hematemesis he will need to be transferred -Continue outpatient follow-up -Follow liver enzymes/PT INR -Patient reports he has been sober 1 month Thrombocytopenia, chronic -No indications for transfusion -Follow CBC Prolonged Qt with short MD - replace mg and recheck - appears to have prolonged Qt on multiple EKG in the past - avoid Qt prolonging agents, discontinue prozac - consult cardio - repeat EKG in AM Lactic acidosis -Likely secondary to advanced liver disease doing-repeat lactic acid Hypomagnesemia - replace and recheck in AM The patient is placed in observation with an anticipated less than 2 midnight stay for evaluation of Intractable nasuea and vomiting Surrogate decision-maker: mother or joselin CODE STATUS:full DVT prophylaxis: SCDs Discussed with: Patient Anticipated discharge date: in 1-[address]: home A total of 35 minutes was spent on the care of this complex patient more than 50% of the time was spent in counseling and care coordination. Past Medical History Past Medical History: Hypertension, Liver Disease, Seizure Disorder Additional Past Medical History / Comment(s): hisotry of Alcohol abuse, cirrhosis, ascites, esophageal varicies History of Any Multi-Drug Resistant Organisms: MRSA Date of last positivie culture/infection: 01/15/21 MDRO Source:: MRSA LEG Past Surgical History: Orthopedic Surgery Additional Past Surgical History / Comment(s): rt hand, 2 lt shoulder, large volume paracentesis Past Anesthesia/Blood Transfusion Reactions: No Reported Reaction Past Psychological History: No Psychological Hx Reported Smoking Status: Never smoker Past Alcohol Use History: None Reported, Daily, Heavy Past Drug Use History: None Reported - Past Family History Mother Family Medical History: Hypertension Additional Family Medical History / Comment(s): Mother is living. Father Family Medical History: CVA/TIA Additional Family Medical History / Comment(s): Father is living. Medications and Allergies Home Medications Medication Instructions Recorded Confirmed Type Metoprolol Tartrate [Lopressor] 50 mg PO BID #60 tab 04/12/20 05/30/21 Rx Spironolactone [Aldactone] 100 mg PO DAILY #30 tab 04/12/20 05/30/21 Rx Lactulose 10 gm PO DAILY 04/24/21 05/30/21 History Magnesium Oxide [Mag-Ox] 400 mg PO DAILY 04/24/21 05/30/21 History Sildenafil Citrate 20 mg PO DAILY PRN 04/24/21 05/30/21 History Disulfiram [Antabuse] 250 mg PO DAILY #30 tablet 04/27/21 05/30/21 Rx Clindamycin Phosphate [Clindagel 1 applic TOPICAL BID 05/30/21 05/30/21 History 1%] FLUoxetine HCL [PROzac] 10 mg PO DAILY 05/30/21 05/30/21 History Folic Acid 2 mg PO DAILY 05/30/21 05/30/21 History Furosemide [Lasix] 40 mg PO DAILY 05/30/21 05/30/21 History Melatonin 10 mg PO HS 05/30/21 05/30/21 History Nystatin/Triamcin Cream [Mycolog 1 applic TOPICAL BID PRN 05/30/21 05/30/21 History 100,000-0.1 Unit/gm-% Cream] Vitamin E (Dl,Tocopheryl Acet) 400 unit PO DAILY 05/30/21 05/30/21 History [Vitamin E (400 Iu = 180 mg)] Allergies Allergy/AdvReac Type Severity Reaction Status Date / Time morphine AdvReac Hallucinati Verified 05/30/21 15:48 ons Physical Exam Osteopathic Statement: *. No significant issues noted on an osteopathic structural exam other than those noted in the History and Physical/Consult. Vitals: Vital Signs Temp Pulse Resp BP Pulse Ox 05/30/21 18:33 84 18 159/93 97 05/30/21 11:48 98.2 F 88 20 162/104 99 Intake and Output 05/30/21 05/30/21 05/30/21 06:59 14:59 22:59 Other: Weight 104.326 kg Results CBC & Chem 7: 05/30/21 15:07 05/30/21 15:07 Labs: Abnormal Lab Results - Last 24 Hours (Table) 05/30/21 05/30/21 05/30/21 Range/Units 15:07 15:07 15:07 RBC 4.10 L (4.30-5.90) m/uL RDW 16.5 H (11.5-15.5) % Plt Count 80 L D (150-450) k/uL PT 19.8 H (9.0-12.0) sec INR 2.0 H (<1.2) Sodium 133 L (137-145) mmol/L Glucose 103 H (74-99) mg/dL Plasma Lactic Acid Adiel (0.7-2.0) mmol/L Magnesium 1.3 L (1.6-2.3) mg/dL Total Bilirubin 6.3 H (0.2-1.3) mg/dL AST 138 H (17-59) U/L ALT 71 H (4-49) U/L Alkaline Phosphatase 129 H (38-126) U/L Total Protein 8.6 H (6.3-8.2) g/dL 05/30/21 Range/Units 15:07 RBC (4.30-5.90) m/uL RDW (11.5-15.5) % Plt Count (150-450) k/uL PT (9.0-12.0) sec INR (<1.2) Sodium (137-145) mmol/L Glucose (74-99) mg/dL Plasma Lactic Acid Adiel 2.1 H* (0.7-2.0) mmol/L Magnesium (1.6-2.3) mg/dL Total Bilirubin (0.2-1.3) mg/dL AST (17-59) U/L ALT (4-49) U/L Alkaline Phosphatase (38-126) U/L Total Protein (6.3-8.2) g/dL
--- NOTE | 2021-05-30 19:06 | CT ---
EXAMINATION TYPE: CT abdomen pelvis wo con DATE OF EXAM: 05/30/2021 COMPARISON: 02/27/2020 HISTORY: Vomiting. CT DLP: 985.7 mGycm Automated exposure control for dose reduction was used. Images obtained without contrast from the diaphragm to the floor the pelvis. There is subsegmental atelectasis at the lung bases. Heart size is normal. There is no pericardial ef fusion. Liver spleen pancreas appear intact. There are calcified gallstones. Bile ducts are not dilated. There is very mild wall thickening of the gallbladder. There is no adrenal mass. Kidneys have normal size. There is no hydronephrosis. Ureters are not dilat ed. Appendix is posterior and appears normal. There is no retroperitoneal adenopathy. Bladder distend s smoothly. Bladder is almost empty. There is no pelvic mass. There is no inguinal hernia. No free fl uid in the pelvis. There is no mesenteric edema. No ascites or free air. No evidence of a bowel obstruction. The lumbar vertebrae have normal alignment. Posterior elements are intact. There is no compression fr acture. The bony pelvis is intact. The hip joints are intact. IMPRESSION: There are gallstones. There is clearing of the abdominal ascites fluid and significant reduction in s ize of the gallbladder compared to the old exam. There is mild gallbladder wall thickening could rela te to some degree of gallbladder dysfunction or cholecystitis.
[2021-05-30] MEDS: METOPROLOL TARTRATE 50 MG TAB PO SCH (20:38)
[2021-05-30 21:38] LABS: Basophils # (A) 0.1 k/uL (0-0.2); Basophils % (A) 2 %; Eosinophils # (A) 0.2 k/uL (0-0.7); Eosinophils % (A) 3 %; HCT 35.5 % (39.0-53.0); HGB 11.6 gm/dL (13.0-17.5); Lymphocytes # (A) 2.3 k/uL (1.0-4.8); Lymphocytes % (A) 29 %; MCH 31.8 pg (25.0-35.0); MCHC 32.8 g/dL (31.0-37.0); Mean Platelet Volume 9.7; Monocytes # (A) 0.9 k/uL (0-1.0); Monocytes % (A) 11 %; Neutrophils % (A) 52 %; RBC 3.66 m/uL (4.30-5.90); RDW 15.7 % (11.5-15.5); WBC 7.8 k/uL (3.8-10.6)
[2021-05-30 21:52] LABS: Platelet Count 64 k/uL (150-450)
[2021-05-30 22:00] LABS: ALT 60 U/L (4-49); AST 121 U/L (17-59); African American GFR (CKD) >90 (>60 ml/min/1.73 sqM); Albumin 2.9 g/dL (3.5-5.0); Alkaline Phosphatase 123 U/L (38-126); Anion Gap 7 mmol/L; Blood Urea Nitrogen 11 mg/dL (9-20); Calcium 7.8 mg/dL (8.4-10.2); Carbon Dioxide 22 mmol/L (22-30); Chloride 103 mmol/L (98-107); Glucose 121 mg/dL (74-99); Magnesium 1.9 mg/dL (1.6-2.3); Non-African American GFR(CKD) >90 (>60 ml/min/1.73 sqM); Potassium 3.4 mmol/L (3.5-5.1); Sodium 132 mmol/L (137-145); Total Bilirubin 4.8 mg/dL (0.2-1.3); Total Protein 7.4 g/dL (6.3-8.2)
[2021-05-31 08:04] LABS: ALT 56 U/L (4-49); AST 103 U/L (17-59); African American GFR (CKD) >90 (>60 ml/min/1.73 sqM); Albumin 2.3 g/dL (3.5-5.0); Albumin/Globulin Ratio 0.6; Alkaline Phosphatase 98 U/L (38-126); Anion Gap 3 mmol/L; Blood Urea Nitrogen 8 mg/dL (9-20); Calcium 7.5 mg/dL (8.4-10.2); Carbon Dioxide 23 mmol/L (22-30); Chloride 110 mmol/L (98-107); Glucose 77 mg/dL (74-99); Non-African American GFR(CKD) >90 (>60 ml/min/1.73 sqM); Potassium 3.5 mmol/L (3.5-5.1); Sodium 136 mmol/L (137-145); Total Bilirubin 4.3 mg/dL (0.2-1.3); Total Protein 6.3 g/dL (6.3-8.2)
[2021-05-31 08:08] LABS: INR 2.1 (<1.2); Prothrombin Time 20.7 sec (9.0-12.0)
[2021-05-31 08:11] LABS: Anisocytosis Slight; HCT 34.3 % (39.0-53.0); HGB 11.1 gm/dL (13.0-17.5); MCH 32.2 pg (25.0-35.0); MCHC 32.4 g/dL (31.0-37.0); MCV 99.2 fL (80.0-100.0); Macrocytosis Slight; Mean Platelet Volume 9.3; RBC 3.45 m/uL (4.30-5.90); RDW 16.5 % (11.5-15.5); WBC 5.5 k/uL (3.8-10.6)
[2021-05-31 08:18] LABS: Platelet Count 63 k/uL (150-450)
[2021-05-31] MEDS: SPIRONOLACTONE 25 MG TAB PO SCH (08:33)
[2021-05-31] MEDS: LACTULOSE 20 GM/30 ML CUP PO SCH (08:33)
[2021-05-31] MEDS: MAGNESIUM OXIDE 400 MG TAB PO SCH (08:33)
[2021-05-31] MEDS: FUROSEMIDE 40 MG TAB PO SCH (08:33)
[2021-05-31] MEDS: METOPROLOL TARTRATE 50 MG TAB PO SCH ×2 (08:33→22:40)
[2021-05-31] MEDS: VITAMIN E (DL,TOCOPHERYL ACET) 400 UNIT (180 MG) CAP PO SCH (08:34)
[2021-05-31] MEDS: PANTOPRAZOLE 40 MG/10 ML VIAL IVP SCH ×2 (08:34→22:40)
[2021-05-31] MEDS ORDERED: FLUoxetine HCL 10 MG CAP PO SCH (09:00)
[2021-05-31] MEDS: MUPIROCIN 2% OINT 22 GM TUBE TOPICAL SCH ×3 (11:50→22:42)
[2021-05-31] MEDS: AMMONIUM LACTATE 12% LOTION 225 GM BTL TOPICAL SCH ×2 (11:51→22:40)
--- NOTE | 2021-05-31 12:48 | P.GSCN ---
History of Present Illness Consult date: 05/31/21 History of present illness: This is a 40-year-old male with a history of alcoholic liver disease. If family quit drinking 1 month ago. He is complaining of some abdominal pain. Patient had a meld score of 23 upon arrival. He has been evaluated by the transplant team and recommended being worked up for liver transplant at [facility]. He denies any nausea vomiting at this time. He has no other complaints. Past Medical History Past Medical History: Hypertension, Liver Disease, Seizure Disorder Additional Past Medical History / Comment(s): hisotry of Alcohol abuse, cirrhosis, ascites, esophageal varicies History of Any Multi-Drug Resistant Organisms: MRSA Year Discovered:: 01/15/21 MDRO Source:: MRSA LEG Past Surgical History: Orthopedic Surgery Additional Past Surgical History / Comment(s): rt hand, 2 lt shoulder, large volume paracentesis Past Anesthesia/Blood Transfusion Reactions: No Reported Reaction Past Psychological History: No Psychological Hx Reported Additional Psychological History / Comment(s): Pt resides with a friend. He is on a low sodium fluid restriction diet. He is independent. Smoking Status: Never smoker Past Alcohol Use History: None Reported, Daily, Heavy Additional Past Alcohol Use History / Comment(s): Patient states he has not consumed alcohol since mid . Patient states he came to [facility] to detox at that time and that he was seen his PCP weekly out patient to help him stay sober and to have blood work done. Patient states prior to he drank 15 beers each day. Patient states his divorce contributed to his alcohol abuse. Past Drug Use History: None Reported - Past Family History Mother Family Medical History: Hypertension Additional Family Medical History / Comment(s): Mother is living. Father Family Medical History: CVA/TIA Additional Family Medical History / Comment(s): Father is living. Medications and Allergies Home Medications Medication Instructions Recorded Confirmed Type Metoprolol Tartrate [Lopressor] 50 mg PO BID #60 tab 04/12/20 05/30/21 Rx Spironolactone [Aldactone] 100 mg PO DAILY #30 tab 04/12/20 05/30/21 Rx Lactulose 10 gm PO DAILY 04/24/21 05/30/21 History Magnesium Oxide [Mag-Ox] 400 mg PO DAILY 04/24/21 05/30/21 History Sildenafil Citrate 20 mg PO DAILY PRN 04/24/21 05/30/21 History Disulfiram [Antabuse] 250 mg PO DAILY #30 tablet 04/27/21 05/30/21 Rx Clindamycin Phosphate [Clindagel 1 applic TOPICAL BID 05/30/21 05/30/21 History 1%] FLUoxetine HCL [PROzac] 10 mg PO DAILY 05/30/21 05/30/21 History Folic Acid 2 mg PO DAILY 05/30/21 05/30/21 History Furosemide [Lasix] 40 mg PO DAILY 05/30/21 05/30/21 History Melatonin 10 mg PO HS 05/30/21 05/30/21 History Nystatin/Triamcin Cream [Mycolog 1 applic TOPICAL BID PRN 05/30/21 05/30/21 History 100,000-0.1 Unit/gm-% Cream] Vitamin E (Dl,Tocopheryl Acet) 400 unit PO DAILY 05/30/21 05/30/21 History [Vitamin E (400 Iu = 180 mg)] Allergies Allergy/AdvReac Type Severity Reaction Status Date / Time morphine AdvReac Hallucinati Verified 05/30/21 15:48 ons Surgical - Exam Osteopathic Statement: *. No significant issues noted on an osteopathic structural exam other than those noted in the History and Physical/Consult. Vital Signs Temp Pulse Resp BP Pulse Ox 98.2 F 88 20 162/104 99 05/30/21 11:48 05/30/21 11:48 05/30/21 11:48 05/30/21 11:48 05/30/21 11:48 - General no distress, chronically ill - Eyes icteric - Neck trachea midline - Respiratory normal expansion, normal respiratory effort - Cardiovascular Rhythm: regular - Abdomen Abdomen: soft, non tender - Psychiatric oriented to time, oriented to person, oriented to place Results - Labs 05/31/21 07:24 05/31/21 07:24 Abnormal Lab Results - Last 24 Hours (Table) 05/30/21 05/30/21 05/30/21 Range/Units 15:07 15:07 15:07 RBC 4.10 L (4.30-5.90) m/uL Hgb (13.0-17.5) gm/dL Hct (39.0-53.0) % RDW 16.5 H (11.5-15.5) % Plt Count 80 L D (150-450) k/uL PT 19.8 H (9.0-12.0) sec INR 2.0 H (<1.2) Sodium 133 L (137-145) mmol/L Potassium (3.5-5.1) mmol/L Chloride (98-107) mmol/L BUN (9-20) mg/dL Glucose 103 H (74-99) mg/dL Plasma Lactic Acid Adiel (0.7-2.0) mmol/L Calcium (8.4-10.2) mg/dL Magnesium 1.3 L (1.6-2.3) mg/dL Total Bilirubin 6.3 H (0.2-1.3) mg/dL AST 138 H (17-59) U/L ALT 71 H (4-49) U/L Alkaline Phosphatase 129 H (38-126) U/L Total Protein 8.6 H (6.3-8.2) g/dL Albumin (3.5-5.0) g/dL 05/30/21 05/30/21 05/30/21 Range/Units 15:07 20:54 20:54 RBC 3.66 L (4.30-5.90) m/uL Hgb 11.6 L (13.0-17.5) gm/dL Hct 35.5 L (39.0-53.0) % RDW 15.7 H (11.5-15.5) % Plt Count 64 L (150-450) k/uL PT (9.0-12.0) sec INR (<1.2) Sodium 132 L (137-145) mmol/L Potassium 3.4 L (3.5-5.1) mmol/L Chloride (98-107) mmol/L BUN (9-20) mg/dL Glucose 121 H (74-99) mg/dL Plasma Lactic Acid Adiel 2.1 H* (0.7-2.0) mmol/L Calcium 7.8 L (8.4-10.2) mg/dL Magnesium (1.6-2.3) mg/dL Total Bilirubin 4.8 H (0.2-1.3) mg/dL AST 121 H (17-59) U/L ALT 60 H (4-49) U/L Alkaline Phosphatase (38-126) U/L Total Protein (6.3-8.2) g/dL Albumin 2.9 L (3.5-5.0) g/dL 05/31/21 05/31/21 05/31/21 Range/Units 07:24 07:24 07:24 RBC 3.45 L (4.30-5.90) m/uL Hgb 11.1 L (13.0-17.5) gm/dL Hct 34.3 L (39.0-53.0) % RDW 16.5 H (11.5-15.5) % Plt Count 63 L (150-450) k/uL PT 20.7 H (9.0-12.0) sec INR 2.1 H (<1.2) Sodium 136 L (137-145) mmol/L Potassium (3.5-5.1) mmol/L Chloride 110 H (98-107) mmol/L BUN 8 L (9-20) mg/dL Glucose (74-99) mg/dL Plasma Lactic Acid Adiel (0.7-2.0) mmol/L Calcium 7.5 L (8.4-10.2) mg/dL Magnesium (1.6-2.3) mg/dL Total Bilirubin 4.3 H (0.2-1.3) mg/dL AST 103 H (17-59) U/L ALT 56 H (4-49) U/L Alkaline Phosphatase (38-126) U/L Total Protein (6.3-8.2) g/dL Albumin 2.3 L (3.5-5.0) g/dL Diabetes panel 05/30/21 05/30/21 05/31/21 Range/Units 15:07 20:54 07:24 Sodium 133 L 132 L 136 L (137-145) mmol/L Potassium 3.6 3.4 L 3.5 (3.5-5.1) mmol/L Chloride 99 103 110 H (98-107) mmol/L Carbon Dioxide 22 22 23 (22-30) mmol/L BUN 10 11 8 L (9-20) mg/dL Creatinine 0.87 0.74 0.76 (0.66-1.25) mg/dL Glucose 103 H 121 H 77 (74-99) mg/dL Calcium 8.6 7.8 L 7.5 L (8.4-10.2) mg/dL AST 138 H 121 H 103 H (17-59) U/L ALT 71 H 60 H 56 H (4-49) U/L Alkaline Phosphatase 129 H 123 98 (38-126) U/L Total Protein 8.6 H 7.4 6.3 (6.3-8.2) g/dL Albumin 3.5 2.9 L 2.3 L (3.5-5.0) g/dL Calcium panel 05/30/21 05/30/21 05/31/21 Range/Units 15:07 20:54 07:24 Calcium 8.6 7.8 L 7.5 L (8.4-10.2) mg/dL Albumin 3.5 2.9 L 2.3 L (3.5-5.0) g/dL Pituitary panel 05/30/21 05/30/21 05/31/21 Range/Units 15:07 20:54 07:24 Sodium 133 L 132 L 136 L (137-145) mmol/L Potassium 3.6 3.4 L 3.5 (3.5-5.1) mmol/L Chloride 99 103 110 H (98-107) mmol/L Carbon Dioxide 22 22 23 (22-30) mmol/L BUN 10 11 8 L (9-20) mg/dL Creatinine 0.87 0.74 0.76 (0.66-1.25) mg/dL Glucose 103 H 121 H 77 (74-99) mg/dL Calcium 8.6 7.8 L 7.5 L (8.4-10.2) mg/dL Adrenal panel 05/30/21 05/30/21 05/31/21 Range/Units 15:07 20:54 07:24 Sodium 133 L 132 L 136 L (137-145) mmol/L Potassium 3.6 3.4 L 3.5 (3.5-5.1) mmol/L Chloride 99 103 110 H (98-107) mmol/L Carbon Dioxide 22 22 23 (22-30) mmol/L BUN 10 11 8 L (9-20) mg/dL Creatinine 0.87 0.74 0.76 (0.66-1.25) mg/dL Glucose 103 H 121 H 77 (74-99) mg/dL Calcium 8.6 7.8 L 7.5 L (8.4-10.2) mg/dL Total Bilirubin 6.3 H 4.8 H 4.3 H (0.2-1.3) mg/dL AST 138 H 121 H 103 H (17-59) U/L ALT 71 H 60 H 56 H (4-49) U/L Alkaline Phosphatase 129 H 123 98 (38-126) U/L Total Protein 8.6 H 7.4 6.3 (6.3-8.2) g/dL Albumin 3.5 2.9 L 2.3 L (3.5-5.0) g/dL Assessment and Plan Assessment: Alcoholic liver failure Plan: Upon arrival patient had a meld score of 23 this gives him a 20% three-month mortality. Patient does not appear to clinically have acute cholecystitis at this time. He is being worked up by the liver transplant team out of [facility]. I recommend he continues to follow up with them. If there is any concern for any further surgical issue he would need to be transferred to a liver center. No plans for any acute surgical intervention.
[2021-05-31] MEDS: DEXAMETHASONE SOD PHOSPHATE 4 MG/ML 1 ML VIAL IVP PRN ×2 (13:49→22:39)
--- NOTE | 2021-05-31 14:41 | P.PN ---
Subjective Progress Note Date: 05/31/21 (delayed charting seen at 1030) Principal diagnosis: nausea and vomiting Patient is a 40-year-old male with alcoholic cirrhosis with recurrent ascites, hypertension, seizure disorder who presented to the ER with complaints of nausea and vomiting and an abnormal EKG at his primary care office. On arrival to the ER he was hypertensive with blood pressure of 162/104 initial laboratory analysis is consistent with his known cirrhosis and a platelet count of 80, INR 2, bilirubin 6.3, AST 138, and ALT 71. Patient was given magnesium and potassium replacements. Arrangements are made for admission. EKG was done which demonstrated a short SC interval along with a QT interval of 503. Old EKGs reviewed and patient has a presistently prolonged QT. CT abdomen and pelvis revealed gallstones as well as mild gallbladder wall thickening. Surgery was consulted. They felt this was not acute cholecystitis with stated if the patient didn't need surgical intervention he would need to be a liver center. Patient seen and examined at bedside. vomiting is much improved still occurs wtih movements, scolapimie improved it but did not resolve it. No abdominla pain. complains of pain in his left leg he has a history of MRSA and feels as though he is getting another abscess forming. General: non toxic, no distress, appears at stated age Derm: + Jaundice warm, dry Head: atraumatic, normocephalic, symmetric Eyes: EOMI, no lid lag, +icteric sclera Mouth: no lip lesion, mucus membranes moist Cardiovascular: S1S2 reg, no murmur, positive posterior tibial pulse bilateral, Lungs: CTA bilateral, no rhonchi, no rales , no accessory muscle use Abdominal: soft, nontender to palpation, no guarding, no appreciable organomegaly Ext: no gross muscle atrophy, no edema, no contractures Neuro: CN II-XI grossly intact, no focal neuro deficits Psych: Alert, oriented, appropriate affect Assessment/Plan: Intractable nausea and vomiting, improving -Scopolamine continued, and dexamethasone added for nausea and vomiting as it does not prolonged QT -Hold high-dose folic acid Compensated cirrhosis, alcohol induced History of gastric varices Gallstones -IV Protonix -Monitor closely patient is aware that if he develops hematemesis he will need to be transferred -Continue outpatient follow-up -Follow liver enzymes/PT INR -Patient reports he has been sober 1 month - evaluated by surgery and no need for surgical intervention at this time, if needed would require a [facility] Thrombocytopenia, chronic -No indications for transfusion -Follow CBC Prolonged Qt with short SC - appears to have prolonged Qt on multiple EKG in the past - avoid Qt prolonging agents, discontinue prozac - await cardio recs Lactic acidosis -Likely secondary to advanced liver disease doing-repeat lactic acid Hypomagnesemia, resolved Patient agreeable to transfer if necessary DVT prophylaxis: SCDs Discussed with: Patient Anticipated discharge date: in 1-[address]: home A total of 35 minutes was spent on the care of this complex patient more than 50% of the time was spent in counseling and care coordination. Active Medications Generic Name Dose Route Start Last Admin Trade Name Freq PRN Reason Stop Dose Admin Acetaminophen 650 mg 05/30/21 18:33 05/30/21 19:57 Acetaminophen Tab 325 Mg Tab PO 650 mg Q6HR PRN Administration Mild Pain or Fever > 100.5 Hydrocodone Bitart/Acetaminophen 1 each 05/30/21 18:33 Hydrocodone/Apap 5-325mg 1 Each Tab PO Q4HR PRN Moderate Pain Dexamethasone Sodium Phosphate 4 mg 05/31/21 11:19 05/31/21 13:49 Dexamethasone Sod Phosphate 4 Mg/Ml 1 Ml Vial IVP 4 mg Q6HR PRN Administration Nausea And Vomiting Furosemide 40 mg 05/31/21 09:00 05/31/21 08:33 Furosemide 40 Mg Tab PO 40 mg DAILY AMANDA Administration Lactic Acid 1 applic 05/31/21 11:30 05/31/21 11:51 Ammonium Lactate 12% Lotion 225 Gm Btl TOPICAL 1 applic BID AMANDA Administration Protocol Lactulose 10 gm 05/31/21 09:00 05/31/21 08:33 Lactulose 20 Gm/30 Ml Cup PO 10 gm DAILY AMANDA Administration Magnesium Oxide 400 mg 05/31/21 09:00 05/31/21 08:33 Magnesium Oxide 400 Mg Tab PO 400 mg DAILY AMANDA Administration Melatonin 3 mg 05/30/21 18:33 Melatonin 3 Mg Tablet PO HS PRN Insomnia Metoprolol Tartrate 50 mg 05/30/21 21:00 05/31/21 08:33 Metoprolol Tartrate 50 Mg Tab PO 50 mg BID AMANDA Administration Mupirocin 1 applic 05/31/21 11:30 05/31/21 11:50 Mupirocin 2% Oint 22 Gm Tube TOPICAL 1 applic TID AMANDA Administration Protocol Naloxone HCl 0.2 mg 05/30/21 17:51 Naloxone 0.4 Mg/Ml 1 Ml Vial IV Q2M PRN Opioid Reversal Pantoprazole Sodium 40 mg 05/31/21 09:00 05/31/21 08:34 Pantoprazole 40 Mg/10 Ml Vial IVP 40 mg BID AMANDA Administration Spironolactone 100 mg 05/31/21 09:00 05/31/21 08:33 Spironolactone 25 Mg Tab PO 100 mg DAILY AMADNA Administration Vitamin E 400 unit 05/31/21 09:00 05/31/21 08:34 Vitamin E (Dl,Tocopheryl Acet) 400 Unit (180 Mg) Cap PO 400 unit DAILY AMANDA Administration Objective - Vital Signs Vital signs: Vital Signs Temp 97.8 F 05/31/21 13:58 Pulse 55 L 05/31/21 13:58 Resp 19 05/31/21 13:58 BP 118/71 05/31/21 13:58 Pulse Ox 100 05/31/21 13:58 Intake & Output 05/30/21 05/31/21 05/31/21 18:59 06:59 18:59 Weight 104.326 kg 104.326 kg Other: # Voids 1 - Labs CBC & Chem 7: 05/31/21 07:24 05/31/21 07:24 Labs: Abnormal Lab Results - Last 24 Hours (Table) 05/30/21 05/30/21 05/30/21 Range/Units 15:07 15:07 15:07 RBC 4.10 L (4.30-5.90) m/uL Hgb (13.0-17.5) gm/dL Hct (39.0-53.0) % RDW 16.5 H (11.5-15.5) % Plt Count 80 L D (150-450) k/uL PT 19.8 H (9.0-12.0) sec INR 2.0 H (<1.2) Sodium 133 L (137-145) mmol/L Potassium (3.5-5.1) mmol/L Chloride (98-107) mmol/L BUN (9-20) mg/dL Glucose 103 H (74-99) mg/dL Plasma Lactic Acid Adiel (0.7-2.0) mmol/L Calcium (8.4-10.2) mg/dL Magnesium 1.3 L (1.6-2.3) mg/dL Total Bilirubin 6.3 H (0.2-1.3) mg/dL AST 138 H (17-59) U/L ALT 71 H (4-49) U/L Alkaline Phosphatase 129 H (38-126) U/L Total Protein 8.6 H (6.3-8.2) g/dL Albumin (3.5-5.0) g/dL 05/30/21 05/30/21 05/30/21 Range/Units 15:07 20:54 20:54 RBC 3.66 L (4.30-5.90) m/uL Hgb 11.6 L (13.0-17.5) gm/dL Hct 35.5 L (39.0-53.0) % RDW 15.7 H (11.5-15.5) % Plt Count 64 L (150-450) k/uL PT (9.0-12.0) sec INR (<1.2) Sodium 132 L (137-145) mmol/L Potassium 3.4 L (3.5-5.1) mmol/L Chloride (98-107) mmol/L BUN (9-20) mg/dL Glucose 121 H (74-99) mg/dL Plasma Lactic Acid Adiel 2.1 H* (0.7-2.0) mmol/L Calcium 7.8 L (8.4-10.2) mg/dL Magnesium (1.6-2.3) mg/dL Total Bilirubin 4.8 H (0.2-1.3) mg/dL AST 121 H (17-59) U/L ALT 60 H (4-49) U/L Alkaline Phosphatase (38-126) U/L Total Protein (6.3-8.2) g/dL Albumin 2.9 L (3.5-5.0) g/dL 05/31/21 05/31/21 05/31/21 Range/Units 07:24 07:24 07:24 RBC 3.45 L (4.30-5.90) m/uL Hgb 11.1 L (13.0-17.5) gm/dL Hct 34.3 L (39.0-53.0) % RDW 16.5 H (11.5-15.5) % Plt Count 63 L (150-450) k/uL PT 20.7 H (9.0-12.0) sec INR 2.1 H (<1.2) Sodium 136 L (137-145) mmol/L Potassium (3.5-5.1) mmol/L Chloride 110 H (98-107) mmol/L BUN 8 L (9-20) mg/dL Glucose (74-99) mg/dL Plasma Lactic Acid Adiel (0.7-2.0) mmol/L Calcium 7.5 L (8.4-10.2) mg/dL Magnesium (1.6-2.3) mg/dL Total Bilirubin 4.3 H (0.2-1.3) mg/dL AST 103 H (17-59) U/L ALT 56 H (4-49) U/L Alkaline Phosphatase (38-126) U/L Total Protein (6.3-8.2) g/dL Albumin 2.3 L (3.5-5.0) g/dL
[2021-05-31 17:10] LABS: Chol/HDL Ratio 7.34 Ratio; LDL Cholesterol,Calculated 98.4 mg/dL (0.0-131.0); VLDL Calculation 11.32 mg/dL (5.00-40.00)
[2021-05-31 17:36] VITALS: RESP 18
[2021-06-01] MEDS: FUROSEMIDE 40 MG TAB PO SCH (07:15)
[2021-06-01] MEDS: MAGNESIUM OXIDE 400 MG TAB PO SCH (07:15)
[2021-06-01] MEDS: LACTULOSE 20 GM/30 ML CUP PO SCH (07:15)
[2021-06-01] MEDS: SPIRONOLACTONE 25 MG TAB PO SCH (07:15)
[2021-06-01] MEDS: METOPROLOL TARTRATE 50 MG TAB PO SCH (07:15)
[2021-06-01] MEDS: AMMONIUM LACTATE 12% LOTION 225 GM BTL TOPICAL SCH (07:16)
[2021-06-01] MEDS: VITAMIN E (DL,TOCOPHERYL ACET) 400 UNIT (180 MG) CAP PO SCH (07:16)
[2021-06-01] MEDS: MUPIROCIN 2% OINT 22 GM TUBE TOPICAL SCH ×2 (07:17→14:56)
[2021-06-01] MEDS: PANTOPRAZOLE 40 MG/10 ML VIAL IVP SCH ×2 (08:41→08:42)
[2021-06-01] MEDS: DEXAMETHASONE SOD PHOSPHATE 4 MG/ML 1 ML VIAL IVP PRN (08:42)
[2021-06-01] MEDS ORDERED: SCOPOLAMINE 1 MG/72 HR PATCH TRANSDERM SCH (09:00)
[2021-06-01 11:22] LABS: HCT 40.9 % (39.0-53.0); HGB 12.7 gm/dL (13.0-17.5); MCH 31.2 pg (25.0-35.0); MCHC 31.1 g/dL (31.0-37.0); MCV 100.2 fL (80.0-100.0); Macrocytosis Slight; Mean Platelet Volume 10.1; RBC 4.08 m/uL (4.30-5.90); RDW 15.8 % (11.5-15.5); WBC 13.6 k/uL (3.8-10.6)
[2021-06-01 11:26] LABS: Platelet Count 74 k/uL (150-450)
[2021-06-01 11:38] LABS: ALT 68 U/L (4-49); AST 115 U/L (17-59); African American GFR (CKD) >90 (>60 ml/min/1.73 sqM); Albumin 3.1 g/dL (3.5-5.0); Albumin/Globulin Ratio 0.7; Alkaline Phosphatase 133 U/L (38-126); Anion Gap 9 mmol/L; Blood Urea Nitrogen 10 mg/dL (9-20); Calcium 8.4 mg/dL (8.4-10.2); Carbon Dioxide 23 mmol/L (22-30); Chloride 108 mmol/L (98-107); Globulin 4.7 g/dL; Glucose 142 mg/dL (74-99); Magnesium 1.6 mg/dL (1.6-2.3); Non-African American GFR(CKD) >90 (>60 ml/min/1.73 sqM); Phosphorus 2.1 mg/dL (2.5-4.5); Potassium 3.8 mmol/L (3.5-5.1); Sodium 140 mmol/L (137-145); Total Bilirubin 3.4 mg/dL (0.2-1.3); Total Protein 7.8 g/dL (6.3-8.2)
[2021-06-01 11:45] LABS: Prothrombin Time 20.2 sec (9.0-12.0)
[2021-06-01 14:23] VITALS: BP 127/73; PULSE 66; TEMP 98
--- NOTE | 2021-06-01 15:11 | P.DS ---
Providers Date of admission: 05/30/21 17:51 Expected date of discharge: 06/01/21 Attending physician: Sandra Barbour MD Consults: 05/31/21 08:41 Consult Physician Routine Consulting Provider: Kashif Ward Consult Reason/Comments: possible cholecystitis Do you want consulting provider notified?: Yes Primary care physician: Carlos Enrique Crowder Hospital Course: Discharge Diagnosis: Intractable nausea/vomiting due to gastritis Compensated cirrhosis, alcohol induced History of gastric varices Gallstones Thrombocytopenia, chronic Prolonged Qt with short [place] Lactic acidosis Hypomagnesemia, resolved Hospital Course: Patient is a 40-year-old male with alcoholic cirrhosis with recurrent ascites, hypertension, seizure disorder who presented to the ER with complaints of nausea and vomiting and an abnormal EKG at his primary care office. On arrival to the ER he was hypertensive with blood pressure of 162/104 initial laboratory analysis is consistent with his known cirrhosis and a platelet count of 80, INR 2, bilirubin 6.3, AST 138, and ALT 71. Patient was given magnesium and potassium replacements. Arrangements are made for admission. EKG was done which demonstrated a short [place] interval along with a QT interval of 503. Old EKGs reviewed and patient has a presistently prolonged QT. CT abdomen and pelvis revealed gallstones as well as mild gallbladder wall thickening. Surgery was consulted. They felt this was not acute cholecystitis with stated if the patient didn't need surgical intervention he would need to be a liver center. His nausea and vomiting conitnued to improve. His magnesium was replace and his prozac was stopped and his Qt is not 470. He was tolerting a diet and was determined stable for discharge home. Follow-up: Dr. Dawn in 1-2 weeks, Dr. Crowder in 2-3 days. Protonix 40 mg PO twice daily, off folic acid and prozac. Conitnue follow-up with Dennis Michael Voip Technician. Patient seen and examined at bedside.[] Vital signs reviewed and stable. General: [non toxic], [no distress], [appears at stated age] Derm: [warm], [dry] Head: [atraumatic], [normocephalic], [symmetric] Eyes: [EOMI], [no lid lag], [anicteric sclera] Mouth: [no lip lesion], [mucus membranes moist] Cardiovascular: [S1S2 reg], [no murmur], [positive posterior tibial pulse bilateral], Lungs: [CTA bilateral], [no rhonchi, no rales] , [no accessory muscle use] Abdominal: [soft], [ nontender to palpation], [no guarding], [no appreciable organomegaly] Ext: [no gross muscle atrophy], [no edema], [no contractures] Neuro: [ CN II-XI grossly intact], [no focal neuro deficits] Psych: [Alert], [oriented], [appropriate affect] A total of [] minutes of time were spent preparing this complex discharge summar y . Patient Condition at Discharge: Stable Plan - Discharge Summary New Discharge Prescriptions: No Action Spironolactone [Aldactone] 100 mg PO DAILY #30 tab Metoprolol Tartrate [Lopressor] 50 mg PO BID #60 tab Sildenafil Citrate 20 mg PO DAILY PRN PRN Reason: E.D. Nystatin/Triamcin Cream [Mycolog 100,000-0.1 Unit/gm-% Cream] 1 applic TOPICAL BID PRN PRN Reason: Skin Irritation Furosemide [Lasix] 40 mg PO DAILY Folic Acid 2 mg PO DAILY Clindamycin Phosphate [Clindagel 1%] 1 applic TOPICAL BID Magnesium Oxide [Mag-Ox] 400 mg PO DAILY Lactulose 10 gm PO DAILY Disulfiram [Antabuse] 250 mg PO DAILY #30 tablet Vitamin E (Dl,Tocopheryl Acet) [Vitamin E (400 Iu = 180 mg)] 400 unit PO DAILY Melatonin 10 mg PO HS FLUoxetine HCL [PROzac] 10 mg PO DAILY Discharge Medication List Metoprolol Tartrate [Lopressor] 50 mg PO BID #60 tab 04/12/20 [Rx] Spironolactone [Aldactone] 100 mg PO DAILY #30 tab 04/12/20 [Rx] Lactulose 10 gm PO DAILY 04/24/21 [History] Magnesium Oxide [Mag-Ox] 400 mg PO DAILY 04/24/21 [History] Sildenafil Citrate 20 mg PO DAILY PRN 04/24/21 [History] Disulfiram [Antabuse] 250 mg PO DAILY #30 tablet 04/27/21 [Rx] Clindamycin Phosphate [Clindagel 1%] 1 applic TOPICAL BID 05/30/21 [History] FLUoxetine HCL [PROzac] 10 mg PO DAILY 05/30/21 [History] Folic Acid 2 mg PO DAILY 05/30/21 [History] Furosemide [Lasix] 40 mg PO DAILY 05/30/21 [History] Melatonin 10 mg PO HS 05/30/21 [History] Nystatin/Triamcin Cream [Mycolog 100,000-0.1 Unit/gm-% Cream] 1 applic TOPICAL BID PRN 05/30/21 [History] Vitamin E (Dl,Tocopheryl Acet) [Vitamin E (400 Iu = 180 mg)] 400 unit PO DAILY 05/30/21 [History] Follow up Appointment(s)/Referral(s): Carlos Enrique Crowder MD [Primary Care Provider] - 1-2 days
[2021-06-02] MEDS ORDERED: SCOPOLAMINE 1 MG/72 HR PATCH TRANSDERM SCH (09:00)
--- NOTE | 2021-06-03 16:23 | CDI ---
Documentation Clarification Form Date: 06/03/2021 04:13:12 PM From: Uriel Patino Admit Date: 05/30/2021 05:51:00 PM Patient Name: Kian Diallo Visit Number: [id number] Discharge Date: 06/01/2021 03:55:00 PM ATTENTION: The Clinical Documentation Specialists (CDI) and [facility] Coding Staff appreciate your assistance in clarifying documentation. Please respond to the clarification below the line at the bottom and electronically sign. The CDI & [facility] Coding staff will review the response and follow-up if needed. Please note: Queries are made part of the Legal Health Record. If you have any questions, please contact the author of this message via ITS. Dr. Maxine Pa The patients principal diagnosis the diagnosis that was chiefly responsible for the admission - has not been clearly identified and clarification is requested. The patient presented with the following: gastritis, dehydration, prolonged QT and hypomagnesemia History/Risk factors: alcoholic hepatic failure, alcoholic cirrhosis with ascites Clinical Indicators: Lab findings: acidosis Radiology findings: ascites, gallstones Vital Signs: Treatment: IV NaCl, magnesium replacement Consults: GI, cardiology In your professional opinion, can you please clarify which diagnosis, after study, was the reason chiefly responsible for the admission? [ ] gastritis [ ] dehydration [ ] Other, please specify [ ] Unable to determine [ ] prolonged QT [ ] hypomagnesemia [ ] all of the above equally gastritis MTDD
== END 2021-06-01 15:55 | disposition home or self-care (01) ==
LOC: EC 11:40 → 4SSUR 17:51 → INTOOBSV 17:51 → 4SSUR 21:01 → UNDODISIN 06-01 15:55
PROVIDERS: ADMIT Internal Medicine; ATTEND Internal Medicine
DX: K29.70 Gastritis, unspecified, without bleeding (principal); K70.40 Alcoholic hepatic failure without coma; E87.2 Acidosis; E83.42 Hypomagnesemia; E86.0 Dehydration; I45.81 Long QT syndrome; D69.6 Thrombocytopenia, unspecified; I86.4 Gastric varices; G40.909 Epilepsy, unspecified, not intractable, without status epilepticus; F32.A Depression, unspecified; K76.0 Fatty (change of) liver, not elsewhere classified; K80.20 Calculus of gallbladder without cholecystitis without obstruction; G47.00 Insomnia, unspecified; Z76.82 Awaiting organ transplant status; Z79.899 Other long term (current) drug therapy; Z88.5 Allergy status to narcotic agent; I10 Essential (primary) hypertension; Z86.14 Personal history of Methicillin resistant Staphylococcus aureus infection; Z82.49 Family history of ischemic heart disease and other diseases of the circulatory system; Z82.3 Family history of stroke
CPT/HCPCS: 96376 ×2; 96375 ×2; 96365; 96366; 99285; 36415; 93005; 80061; 80053 ×3; 82607; 82140 ×2; 83605; 83735 ×2; 84100; 85025; 85027 ×2; 85610 ×3; 85730; 74176; G0378 ×3; G0480; J1100 ×2; J3475; C9113 ×3; 80320

== ENCOUNTER 2021-06-07 22:19 | Emergency (ER) | payer OTHER ==
[2021-06-08] MEDS ORDERED: ONDANSETRON 4 MG/2 ML VIAL IVP STA ×2 (00:28→02:18)
[2021-06-08] MEDS ORDERED: SODIUM CHLORIDE 0.9% 1,000 ML IV STA (00:28)
[2021-06-08] MEDS ORDERED: MAG HYDROX/AL HYDROX/SIMETH 30 ML, HYOSCYAMINE ELIXIR 10 ML, LIDOCAINE VISCOUS 2% 10 ML PO STA ×3 (00:56)
[2021-06-08 01:06] LABS: INR 1.7 (<1.2); Prothrombin Time 17.4 sec (9.0-12.0)
[2021-06-08 01:13] LABS: ALT 84 U/L (4-49); AST 122 U/L (17-59); African American GFR (CKD) >90 (>60 ml/min/1.73 sqM); Albumin 3.2 g/dL (3.5-5.0); Alkaline Phosphatase 124 U/L (38-126); Anion Gap 8 mmol/L; Blood Urea Nitrogen 12 mg/dL (9-20); Calcium 8.5 mg/dL (8.4-10.2); Carbon Dioxide 27 mmol/L (22-30); Chloride 101 mmol/L (98-107); Glucose 145 mg/dL (74-99); Magnesium 1.5 mg/dL (1.6-2.3); Non-African American GFR(CKD) >90 (>60 ml/min/1.73 sqM); Phosphorus 2.8 mg/dL (2.5-4.5); Sodium 136 mmol/L (137-145); Total Bilirubin 4.9 mg/dL (0.2-1.3); Total Protein 7.7 g/dL (6.3-8.2)
[2021-06-08 01:22] LABS: Anisocytosis Slight; Basophils % (A) 1 %; Eosinophils # (A) 0.2 k/uL (0-0.7); Eosinophils % (A) 3 %; HCT 39.2 % (39.0-53.0); HGB 13.1 gm/dL (13.0-17.5); Lymphocytes # (A) 2.3 k/uL (1.0-4.8); Lymphocytes % (A) 30 %; MCHC 33.4 g/dL (31.0-37.0); MCV 98.7 fL (80.0-100.0); Macrocytosis Slight; Monocytes # (A) 0.8 k/uL (0-1.0); Monocytes % (A) 10 %; Neutrophils # (A) 3.9 k/uL (1.3-7.7); Neutrophils % (A) 52 %; RBC 3.97 m/uL (4.30-5.90); RDW 17.1 % (11.5-15.5); WBC 7.6 k/uL (3.8-10.6)
[2021-06-08] MEDS ORDERED: POTASSIUM CHLORIDE 10 MEQ in WATER FOR INJECTION 1 100ML.BAG IVPB STA (01:22)
[2021-06-08] MEDS: MAGNESIUM SULFATE-D5W PMX 1 GM in DEXTROSE/WATER 1 100ML.BAG IVPB SCH ×2 (01:39→02:40)
[2021-06-08 02:02] LABS: Platelet Count 71 k/uL (150-450)
--- NOTE | 2021-06-08 02:12 | ED ---
General Adult HPI - General Chief complaint: Nausea/Vomiting/Diarrhea Stated complaint: Nausea Time Seen by Provider: 06/07/21 23:35 Source: patient, RN notes reviewed Mode of arrival: ambulatory Limitations: no limitations - History of Present Illness Initial comments: 40-year-old male with a past medical history of liver disease related to alcoholism presents to the emergency department for evaluation of appetite loss, nausea and vomiting, and increased fatigue. Patient states he has been compliant taking his medications as prescribed and has seen hepatology in [place]. States he continues to feel poorly and is unable to tolerate oral intake. Reports mild generalized abdominal discomfort he attributes to vomiting. Denies any known sick exposures. No fever, chills, headache, chest pain, cough, shortness of breath, hematemesis, hematochezia, dysuria, or hematuria. - Related Data Home Medications Medication Instructions Recorded Confirmed Lactulose 10 gm PO DAILY 04/24/21 05/30/21 Magnesium Oxide [Mag-Ox] 400 mg PO DAILY 04/24/21 05/30/21 Clindamycin Phosphate [Clindagel 1 applic TOPICAL BID 05/30/21 05/30/21 1%] Furosemide [Lasix] 40 mg PO DAILY 05/30/21 05/30/21 Melatonin 10 mg PO HS 05/30/21 05/30/21 Nystatin/Triamcin Cream [Mycolog 1 applic TOPICAL BID PRN 05/30/21 05/30/21 100,000-0.1 Unit/gm-% Cream] Vitamin E (Dl,Tocopheryl Acet) 400 unit PO DAILY 05/30/21 05/30/21 [Vitamin E (400 Iu = 180 mg)] Previous Rx's Medication Instructions Recorded Metoprolol Tartrate [Lopressor] 50 mg PO BID #60 tab 04/12/20 Spironolactone [Aldactone] 100 mg PO DAILY #30 tab 04/12/20 Disulfiram [Antabuse] 250 mg PO DAILY #30 tablet 04/27/21 Pantoprazole [Protonix] 40 mg PO BID #60 tab 06/01/21 Scopolamine 1.5MG/72Hr Patch 1 patch TRANSDERM Q72H #10 patch 06/01/21 [TransDerm Scop] Potassium Chloride ER [K-Dur 20] 20 meq PO DAILY 3 Days #3 tab 06/08/21 Scopolamine 1.5MG/72Hr Patch 1 patch TRANSDERM Q72H PRN #10 06/08/21 [TransDerm Scop] patch Allergies Allergy/AdvReac Type Severity Reaction Status Date / Time morphine AdvReac Hallucinati Verified 06/07/21 22:20 ons Review of Systems ROS Statement: Those systems with pertinent positive or pertinent negative responses have been documented in the HPI. ROS Other: All systems not noted in ROS Statement are negative. Past Medical History Past Medical History: Hypertension, Liver Disease, Seizure Disorder Additional Past Medical History / Comment(s): hisotry of Alcohol abuse, cirrhosis, ascites, esophageal varicies History of Any Multi-Drug Resistant Organisms: MRSA Date of last positivie culture/infection: 01/15/21 MDRO Source:: MRSA LEG Past Surgical History: Orthopedic Surgery Additional Past Surgical History / Comment(s): rt hand, 2 lt shoulder, large vo lume paracentesis Past Anesthesia/Blood Transfusion Reactions: No Reported Reaction Past Psychological History: No Psychological Hx Reported Smoking Status: Never smoker Past Alcohol Use History: None Reported, Daily, Heavy Past Drug Use History: None Reported - Past Family History Mother Family Medical History: Hypertension Additional Family Medical History / Comment(s): Mother is living. Father Family Medical History: CVA/TIA Additional Family Medical History / Comment(s): Father is living. General Exam Limitations: no limitations General appearance: alert, other (Well-developed, somewhat ill-appearing male in no acute distress. Initial temperature 97.8, pulse 90, respirations 16, blood pressure 168/105, pulse ox 100% on room air.) Eye exam: Present: PERRL, EOMI, scleral icterus ENT exam: Present: normal oropharynx, mucous membranes moist Respiratory exam: Present: normal lung sounds bilaterally. Absent: respiratory distress, wheezes, rales, rhonchi, stridor Cardiovascular Exam: Present: regular rate, normal rhythm, normal heart sounds. Absent: systolic murmur, diastolic murmur, rubs, gallop, clicks GI/Abdominal exam: Present: soft, normal bowel sounds. Absent: distended, tenderness, guarding, rebound, rigid Back exam: Absent: CVA tenderness (R), CVA tenderness (L) Neurological exam: Present: alert, oriented X3 Psychiatric exam: Present: flat affect Skin exam: Present: warm, dry, intact. Absent: rash Course Vital Signs 04/09/22 04/10/22 04/10/22 22:20 01:53 04:10 Temperature 97.8 F 97.3 F L Pulse Rate 90 82 91 Respiratory 16 20 16 Rate Blood Pressure 168/105 147/82 128/75 O2 Sat by Pulse 100 98 97 Oximetry - Reevaluation(s) Reevaluation #1: 06/08/21 01:11 Due to concerns with QT prolongation, antiemetic selection is limited. Discussed scopolamine patch, though patient felt he achieved minimal relief with this option previously. He was willing to try a GI cocktail. This will be ordered and patient will be reassessed. 06/08/21 02:17 Upon reassessment, patient reports his nausea was unchanged with GI cocktail therefore we will give one partial dose of Zofran. 06/08/21 03:10 Patient was given a partial dose of Zofran and reports minimal improvement. Discussed laboratory results explaining that current findings and do not necessarily merit hospital admission, especially if patient is able to tolerate supplementation orally. He is agreeable with this plan of care. Medical Decision Making - Medical Decision Making 40-year-old male with a past medical history of alcohol induced liver cirrhosis presents to the emergency department for evaluation of nausea and vomiting. Upon exam, patient is somewhat ill-appearing, but when no acute distress. Yellowing of the skin and eyes is noted. Reports mild generalized abdominal discomfort with persistent nausea. Due to ongoing issues with QT prolongation, patient's options for antiemetics are limited. He was given a GI cocktail with no change therefore a partial dose of Zofran was given with minimal improvement. Patient did receive IV fluids. Laboratory studies were obtained showing hypokalemia and hypomagnesemia. Electrolytes were replaced via IV infusion. Liver enzymes and bilirubin remain elevated though on par with previous levels. Patient will be discharged home to follow-up with his PCP this week. He is prescribed a very short course of oral potassium supplementation and encouraged to continue his home medication regimen as prescribed. Scopolamine patch jasen lied prescribed. Return parameters were discussed in detail. Patient verbalizes understanding and agrees with this plan. Attending: Karla. - Lab Data Result diagrams: 06/08/21 00:34 06/08/21 00:34 Lab Results 06/08/21 06/08/21 06/08/21 Range/Units 00:34 00:34 00:34 WBC 7.6 (3.8-10.6) k/uL RBC 3.97 L (4.30-5.90) m/uL Hgb 13.1 (13.0-17.5) gm/dL Hct 39.2 (39.0-53.0) % MCV 98.7 (80.0-100.0) fL MCH 33.0 (25.0-35.0) pg MCHC 33.4 (31.0-37.0) g/dL RDW 17.1 H (11.5-15.5) % Plt Count 71 L (150-450) k/uL MPV 10.0 Neutrophils % 52 % Lymphocytes % 30 % Monocytes % 10 % Eosinophils % 3 % Basophils % 1 % Neutrophils # 3.9 (1.3-7.7) k/uL Lymphocytes # 2.3 (1.0-4.8) k/uL Monocytes # 0.8 (0-1.0) k/uL Eosinophils # 0.2 (0-0.7) k/uL Basophils # 0.0 (0-0.2) k/uL Manual Slide Review Performed Anisocytosis Slight Macrocytosis Slight PT (9.0-12.0) sec INR (<1.2) Sodium 136 L (137-145) mmol/L Potassium 3.0 L (3.5-5.1) mmol/L Chloride 101 (98-107) mmol/L Carbon Dioxide 27 (22-30) mmol/L Anion Gap 8 mmol/L BUN 12 (9-20) mg/dL Creatinine 0.79 (0.66-1.25) mg/dL Est GFR (CKD-EPI)AfAm >90 (>60 ml/min/1.73 sqM) Est GFR (CKD-EPI)NonAf >90 (>60 ml/min/1.73 sqM) Glucose 145 H (74-99) mg/dL Calcium 8.5 (8.4-10.2) mg/dL Phosphorus 2.8 (2.5-4.5) mg/dL Magnesium 1.5 L (1.6-2.3) mg/dL Total Bilirubin 4.9 H (0.2-1.3) mg/dL AST 122 H (17-59) U/L ALT 84 H (4-49) U/L Alkaline Phosphatase 124 (38-126) U/L Ammonia 18 (<30) umol/L Total Protein 7.7 (6.3-8.2) g/dL Albumin 3.2 L (3.5-5.0) g/dL 06/08/21 Range/Units 00:34 WBC (3.8-10.6) k/uL RBC (4.30-5.90) m/uL Hgb (13.0-17.5) gm/dL Hct (39.0-53.0) % MCV (80.0-100.0) fL MCH (25.0-35.0) pg MCHC (31.0-37.0) g/dL RDW (11.5-15.5) % Plt Count (150-450) k/uL MPV Neutrophils % % Lymphocytes % % Monocytes % % Eosinophils % % Basophils % % Neutrophils # (1.3-7.7) k/uL Lymphocytes # (1.0-4.8) k/uL Monocytes # (0-1.0) k/uL Eosinophils # (0-0.7) k/uL Basophils # (0-0.2) k/uL Manual Slide Review Anisocytosis Macrocytosis PT 17.4 H (9.0-12.0) sec INR 1.7 H (<1.2) Sodium (137-145) mmol/L Potassium (3.5-5.1) mmol/L Chloride (98-107) mmol/L Carbon Dioxide (22-30) mmol/L Anion Gap mmol/L BUN (9-20) mg/dL Creatinine (0.66-1.25) mg/dL Est GFR (CKD-EPI)AfAm (>60 ml/min/1.73 sqM) Est GFR (CKD-EPI)NonAf (>60 ml/min/1.73 sqM) Glucose (74-99) mg/dL Calcium (8.4-10.2) mg/dL Phosphorus (2.5-4.5) mg/dL Magnesium (1.6-2.3) mg/dL Total Bilirubin (0.2-1.3) mg/dL AST (17-59) U/L ALT (4-49) U/L Alkaline Phosphatase (38-126) U/L Ammonia (<30) umol/L Total Protein (6.3-8.2) g/dL Albumin (3.5-5.0) g/dL - EKG Data EKG shows normal: sinus rhythm Rate: normal EKG Comments: EKG was obtained that 2351 and shows sinus rhythm. Ventricular rate 69, WA interval 191, QRS duration 96, QT/QTc 439/458. Interpretation normal ECG. Disposition Clinical Impression: Hypomagnesemia, Hypokalemia, Nausea, Elevated liver enzymes Disposition: HOME SELF-CARE Condition: Stable Instructions (If sedation given, give patient instructions): Hypokalemia (ED), Acute Nausea and Vomiting (ED), Hypomagnesemia (ED) Additional Instructions: Continue your home medications as prescribed. Take potassium supplement as directed. Scopolamine patch is for nausea and is the best choice as many anti-nausea medications cause prolonged QT syndrome. Follow with your PCP for a recheck this week. Return to the emergency department with any new, worsening, or concerning symptoms. Prescriptions: Potassium Chloride ER [K-Dur 20] 20 meq PO DAILY 3 Days #3 tab Scopolamine 1.5MG/72Hr Patch [TransDerm Scop] 1 patch TRANSDERM Q72H PRN #10 patch PRN Reason: Nausea Is patient prescribed a controlled substance at d/c from ED?: No Referrals: Carlos Enrique Crowder MD [Primary Care Provider] - 1-2 days Time of Disposition: 03:46
[2021-06-08] MEDS ORDERED: POTASSIUM BICARBONATE/CIT AC 20 MEQ TABLET.EFF PO ONE (03:14)
[2021-06-08 04:11] VITALS: BP 128/75; PULSE 91; RESP 16; TEMP 97.3
== END 2021-06-08 04:10 | disposition home or self-care (01) ==
LOC: EC 22:19
DX: R11.2 Nausea with vomiting, unspecified (principal); E83.42 Hypomagnesemia; E87.6 Hypokalemia; R74.01 Elevation of levels of liver transaminase levels; Z88.5 Allergy status to narcotic agent; I10 Essential (primary) hypertension
CPT/HCPCS: 99284; 96365; 96366; 96368; 96375; 36415; 93005; 80053; 82140; 83735; 84100; 85025; 85610; J2405; J3475; J3480

== ENCOUNTER 2021-06-22 09:41 | Emergency (ER) | payer OTHER ==
[2021-06-22 09:50] VITALS: TEMP 97.8
[2021-06-22] MEDS ORDERED: PANTOPRAZOLE 40 MG/10 ML VIAL IVP STA (11:47)
[2021-06-22] MEDS ORDERED: ONDANSETRON 4 MG/2 ML VIAL IVP STA (11:47)
[2021-06-22] MEDS ORDERED: SODIUM CHLORIDE 0.9% 1,000 ML IV STA (11:47)
[2021-06-22] MEDS ORDERED: MAGNESIUM SULFATE-D5W PMX 1 GM in DEXTROSE/WATER 1 100ML.BAG IVPB ONE (11:48)
[2021-06-22 12:08] VITALS: RESP 16
[2021-06-22 12:14] LABS: Anisocytosis Slight; Basophils # (A) 0.1 k/uL (0-0.2); Basophils % (A) 2 %; Eosinophils # (A) 0.3 k/uL (0-0.7); Eosinophils % (A) 4 %; HCT 36.4 % (39.0-53.0); HGB 12.2 gm/dL (13.0-17.5); Lymphocytes # (A) 2.4 k/uL (1.0-4.8); Lymphocytes % (A) 34 %; MCH 32.7 pg (25.0-35.0); MCHC 33.6 g/dL (31.0-37.0); MCV 97.4 fL (80.0-100.0); Macrocytosis Slight; Mean Platelet Volume 9.2; Monocytes # (A) 0.8 k/uL (0-1.0); Monocytes % (A) 11 %; Neutrophils # (A) 3.4 k/uL (1.3-7.7); Neutrophils % (A) 47 %; RBC 3.74 m/uL (4.30-5.90); RDW 17.1 % (11.5-15.5); WBC 7.2 k/uL (3.8-10.6)
[2021-06-22 12:16] LABS: ALT 39 U/L (4-49); AST 104 U/L (17-59); African American GFR (CKD) >90 (>60 ml/min/1.73 sqM); Alcohol <10 mg/dL; Alkaline Phosphatase 114 U/L (38-126); Amylase 70 U/L (30-110); Anion Gap 7 mmol/L; Blood Urea Nitrogen 6 mg/dL (9-20); Calcium 8.1 mg/dL (8.4-10.2); Carbon Dioxide 24 mmol/L (22-30); Chloride 106 mmol/L (98-107); Glucose 88 mg/dL (74-99); Lipase 191 U/L (23-300); Non-African American GFR(CKD) >90 (>60 ml/min/1.73 sqM); Potassium 3.5 mmol/L (3.5-5.1); Sodium 137 mmol/L (137-145); Total Bilirubin 7.4 mg/dL (0.2-1.3); Total Protein 7.1 g/dL (6.3-8.2)
[2021-06-22 12:45] LABS: Platelet Count 62 k/uL (150-450)
[2021-06-22 12:46] LABS: Target Cells Present
[2021-06-22] MEDS ORDERED: ONDANSETRON 4 MG ODT STARTER PACK 2 TAB BTL PO STA (13:35)
--- NOTE | 2021-06-22 13:37 | ED ---
General Adult HPI - General Chief complaint: Nausea/Vomiting/Diarrhea Stated complaint: nausea, vomiting Time Seen by Provider: 06/22/21 11:40 Source: patient, RN notes reviewed, old records reviewed Mode of arrival: ambulatory Limitations: no limitations - History of Present Illness Initial comments: Patient is a 40-year-old male with past medical history remarkable for prior alcohol abuse, chronic alcohol liver disease seeing a liver specialist outp atient presents emergency Department complaining of nausea and vomiting for the last 2 days. States he is having difficulty keeping any of his medications or food down. Presents for evaluation.. Previous not to take Zofran without checking his QT interval. Would like his QT interval checked. Describes the emesis is nonbilious nonbloody. Denies any constipation, diarrhea. Nurses mild epigastric abdominal pain. Denies any chest pain, shortness breath. Denies any fevers or chills. His no other acute complaints at this time. His no known sick contacts. He is to follow-up with his liver specialist soon, and they're exploring options for possible liver transplant in the future. - Related Data Home Medications Medication Instructions Recorded Confirmed Lactulose 10 gm PO DAILY 04/24/21 05/30/21 Magnesium Oxide [Mag-Ox] 400 mg PO DAILY 04/24/21 05/30/21 Clindamycin Phosphate [Clindagel 1 applic TOPICAL BID 05/30/21 05/30/21 1%] Furosemide [Lasix] 40 mg PO DAILY 05/30/21 05/30/21 Melatonin 10 mg PO HS 05/30/21 05/30/21 Nystatin/Triamcin Cream [Mycolog 1 applic TOPICAL BID PRN 05/30/21 05/30/21 100,000-0.1 Unit/gm-% Cream] Vitamin E (Dl,Tocopheryl Acet) 400 unit PO DAILY 05/30/21 05/30/21 [Vitamin E (400 Iu = 180 mg)] Previous Rx's Medication Instructions Recorded Metoprolol Tartrate [Lopressor] 50 mg PO BID #60 tab 04/12/20 Spironolactone [Aldactone] 100 mg PO DAILY #30 tab 04/12/20 Disulfiram [Antabuse] 250 mg PO DAILY #30 tablet 04/27/21 Pantoprazole [Protonix] 40 mg PO BID #60 tab 06/01/21 Scopolamine 1 mg/72 Hr Patch 1 patch TRANSDERM Q72H #10 patch 06/01/21 [TransDerm Scop] Potassium Chloride ER [K-Dur 20] 20 meq PO DAILY 3 Days #3 tab 06/08/21 Scopolamine 1 mg/72 Hr Patch 1 patch TRANSDERM Q72H PRN #10 06/08/21 [TransDerm Scop] patch Ondansetron Odt [Zofran Odt] 4 mg PO Q8HR PRN 3 Days #9 tab 06/22/21 Allergies Allergy/AdvReac Type Severity Reaction Status Date / Time morphine AdvReac Hallucinati Verified 06/22/21 09:49 ons Review of Systems ROS Statement: Those systems with pertinent positive or pertinent negative responses have been documented in the HPI. Review of Systems: CONST: Denies fever EYES: Denies blurry vision ENT: Denies nasal congestion C/V: Denies Chest pain RESP: Denies shortness of breath GI: Endorses mild abdominal pain : Denies dysuria SKIN: Denies rash. MSK: Denies joint pain. NEURO: Denies headache ROS Other: All systems not noted in ROS Statement are negative. Past Medical History Past Medical History: Hypertension, Liver Disease, Seizure Disorder Additional Past Medical History / Comment(s): hisotry of Alcohol abuse, cirrhosis, ascites, esophageal varicies History of Any Multi-Drug Resistant Organisms: MRSA Date of last positivie culture/infection: 01/15/21 MDRO Source:: MRSA LEG Past Surgical History: Orthopedic Surgery Additional Past Surgical History / Comment(s): rt hand, 2 lt shoulder, large volume paracentesis Past Anesthesia/Blood Transfusion Reactions: No Reported Reaction Past Psychological History: No Psychological Hx Reported Smoking Status: Never smoker Past Alcohol Use History: None Reported, Daily, Heavy Past Drug Use History: None Reported - Past Family History Mother Family Medical History: Hypertension Additional Family Medical History / Comment(s): Mother is living. Father Family Medical History: CVA/TIA Additional Family Medical History / Comment(s): Father is living. General Exam - General Exam Comments Initial Comments: General: Appears in no acute distress. HEAD: Normal with no signs of head trauma. EYES: PERRLA, EOMI, conjunctiva normal, no discharge. ENT: Hearing grossly intact, normal oropharynx. RESPIRATORY: Clear breath sounds bilaterally. No wheezes, rales, or rhonchi. C/V: Regular rate and rhythm. S1 and S2 auscultated, no edema, peripheral pulses 2+ and intact throughout ABD: Abdomen is soft, nondistended. Minimally tender to palpation in the epigastric region. No guarding. No tenderness. No peritoneal signs. EXT: Normal range of motion, no obvious deformity SKIN: No rashes or lesions observed on exposed skin. Mild jaundice. Patient states it is improved. NEURO: Alert and oriented 4. No focal sensory strength deficits. Limitations: no limitations Course Vital Signs 06/22/21 06/22/21 06/22/21 09:45 12:08 13:53 Temperature 97.8 F Pulse Rate 104 H 86 81 Respiratory 18 16 16 Rate Blood Pressure 149/90 161/99 151/93 O2 Sat by Pulse 100 99 99 Oximetry Medical Decision Making - Medical Decision Making Based on the patient's presentation and physical exam, I'm concerned for his acute nausea and vomiting, likely an setting of his chronic liver disease. He is requesting a EKG to check his QT intervals which will be obtained. We'll also obtain basic labs. He will receive IV fluids as well as antibiotics. He was in agreement this plan. Laboratory studies remarkable for a very mild normocytic anemia with a hemoglobin of 12.2. This does appear to be his baseline. Total bilirubin is slightly elevated compared to normal, as he has ranged from 3-10. Is currently 7.4. Remainder of the LFTs are within normal limits. Albumin is 3.0. Alcohol level is negative. On reevaluation, patient is feeling improved. EKG revealed slight prolonged QT, patient is administered magnesium. He is tolerating oral intake. I discussed results with him. He does have close follow-up with his liver specialist and I believe it is safe for him to be discharged home at this time, he was in agreement with this plan. Strict return precautions were discussed.Vital signs remained within normal limits and stable throughout his stay. I will provide the patient with a prescription for Zofran ODT. I instructed the patient to follow up with their PCP in the next 3 days. I explained that the patient should return to the emergency department if they experience any worsening symptoms. Strict return precautions were discussed with the patient. The patient expressed understanding of these instructions. I answered all questions that the patient had. The patient was discharged home in good condition with their prescriptions and follow up information. - Lab Data Result diagrams: 06/22/21 11:53 06/22/21 11:53 Lab Results 06/22/21 06/22/21 Range/Units 11:53 11:53 WBC 7.2 (3.8-10.6) k/uL RBC 3.74 L (4.30-5.90) m/uL Hgb 12.2 L (13.0-17.5) gm/dL Hct 36.4 L (39.0-53.0) % MCV 97.4 (80.0-100.0) fL MCH 32.7 (25.0-35.0) pg MCHC 33.6 (31.0-37.0) g/dL RDW 17.1 H (11.5-15.5) % Plt Count 62 L (150-450) k/uL MPV 9.2 Neutrophils % 47 % Lymphocytes % 34 % Monocytes % 11 % Eosinophils % 4 % Basophils % 2 % Neutrophils # 3.4 (1.3-7.7) k/uL Lymphocytes # 2.4 (1.0-4.8) k/uL Monocytes # 0.8 (0-1.0) k/uL Eosinophils # 0.3 (0-0.7) k/uL Basophils # 0.1 (0-0.2) k/uL Manual Slide Review Performed Anisocytosis Slight Macrocytosis Slight Target Cells Present Sodium 137 (137-145) mmol/L Potassium 3.5 (3.5-5.1) mmol/L Chloride 106 (98-107) mmol/L Carbon Dioxide 24 (22-30) mmol/L Anion Gap 7 mmol/L BUN 6 L (9-20) mg/dL Creatinine 0.68 (0.66-1.25) mg/dL Est GFR (CKD-EPI)AfAm >90 (>60 ml/min/1.73 sqM) Est GFR (CKD-EPI)NonAf >90 (>60 ml/min/1.73 sqM) Glucose 88 (74-99) mg/dL Calcium 8.1 L (8.4-10.2) mg/dL Total Bilirubin 7.4 H (0.2-1.3) mg/dL AST 104 H (17-59) U/L ALT 39 (4-49) U/L Alkaline Phosphatase 114 (38-126) U/L Total Protein 7.1 (6.3-8.2) g/dL Albumin 3.0 L (3.5-5.0) g/dL Amylase 70 (30-110) U/L Lipase 191 (23-300) U/L Serum Alcohol <10 mg/dL - EKG Data -: EKG Interpreted by Me EKG Comments: 12-lead Electrocardiogram Interpretation Note EKG was reviewed and interpreted by myself. 12-lead ECG performed at 1124 is interpreted by me as revealing normal sinus rhythm at a rate of 88 beats per minute. [place] is normal. MN Intervals 150 ms, QRS duration is 97 ms, QTc is 461 ms.. There were no ST or T wave abnormalities to suggest myocardial ischemia or injury. R wave progression across the precordium was satisfactory. By my interpretation this EKG is non-diagnostic for acute ischemia. Disposition Clinical Impression: Nausea and vomiting, Chronic liver disease Disposition: HOME SELF-CARE Condition: Good Instructions (If sedation given, give patient instructions): Acute Nausea and Vomiting (ED) Prescriptions: Ondansetron Odt [Zofran Odt] 4 mg PO Q8HR PRN 3 Days #9 tab PRN Reason: Nausea Is patient prescribed a controlled substance at d/c from ED?: No Referrals: Carlos Enrique Crowder MD [Primary Care Provider] - 1-2 days Time of Disposition: 13:20
[2021-06-22 13:54] VITALS: BP 151/93; PULSE 81
== END 2021-06-22 13:54 | disposition home or self-care (01) ==
LOC: EC 09:41
DX: R11.2 Nausea with vomiting, unspecified (principal); K76.9 Liver disease, unspecified; I10 Essential (primary) hypertension; G40.909 Epilepsy, unspecified, not intractable, without status epilepticus; Z88.5 Allergy status to narcotic agent
CPT/HCPCS: 99284; 96365; 96366; 96375 ×2; 36415; 80053; 82150; 83690; 85025; G0480; J2405; J3475; S0119; C9113; 80320

== ENCOUNTER 2021-06-28 22:58 | Emergency (ER) | payer OTHER ==
[2021-06-28 23:10] VITALS: TEMP 98.1
--- NOTE | 2021-06-29 00:43 | US ---
EXAMINATION TYPE: US abdomen limited DATE OF EXAM: 06/29/2021 COMPARISON: CLINICAL HISTORY: attention RUQ. Hx liver disease. RUQ pain. Patient states he had protein drink re cently. EXAM MEASUREMENTS: Liver Length: 15.8 cm Gallbladder Wall: 0.3 cm CBD: 1.0 cm Right Kidney: 11.3 x 6.7 x 6.0 cm Pancreas: Obscured by bowel gas Liver: Appears coarse in appearance. Gallbladder: Enlarged in size= 11.3 cm. Small echogenic foci seen within. Evidence for sonographic Lugo's sign: neg CBD: Dilated, limited visualization Right Kidney: Limited visualization of lower pole due to overlying bowel gas IMPRESSION: Moderately dilated gallbladder is consistent with cholecystitis and cystic duct obstructi on. Mildly dilated colon bile duct measures 1 cm and could relate to gallbladder dysfunction or less likely ductal obstruction. No dilation seen of the intrahepatic bile ducts. There are multiple small gallstones.
[2021-06-29 00:52] LABS: ALT 35 U/L (4-49); AST 77 U/L (17-59); African American GFR (CKD) >90 (>60 ml/min/1.73 sqM); Albumin 2.8 g/dL (3.5-5.0); Alkaline Phosphatase 125 U/L (38-126); Amylase 88 U/L (30-110); Anion Gap 2 mmol/L; Blood Urea Nitrogen 11 mg/dL (9-20); Calcium 8.5 mg/dL (8.4-10.2); Carbon Dioxide 31 mmol/L (22-30); Chloride 103 mmol/L (98-107); Glucose 85 mg/dL (74-99); Lipase 428 U/L (23-300); Non-African American GFR(CKD) >90 (>60 ml/min/1.73 sqM); Potassium 3.7 mmol/L (3.5-5.1); Sodium 136 mmol/L (137-145); Total Bilirubin 3.1 mg/dL (0.2-1.3); Total Protein 6.6 g/dL (6.3-8.2)
[2021-06-29 01:32] LABS: Anisocytosis Slight; HCT 34.6 % (39.0-53.0); HGB 11.4 gm/dL (13.0-17.5); MCH 32.8 pg (25.0-35.0); MCHC 32.9 g/dL (31.0-37.0); MCV 99.6 fL (80.0-100.0); Macrocytosis Slight; Mean Platelet Volume 8.8; RBC 3.47 m/uL (4.30-5.90); RDW 18.3 % (11.5-15.5); WBC 7.1 k/uL (3.8-10.6)
[2021-06-29 02:25] LABS: Band Neutrophils % 1 %; Basophils # (M) 0.07 k/uL (0-0.2); Eosinophils # (M) 0.28 k/uL (0-0.7); Lymphocytes # (M) 3.34 k/uL (1.0-4.8); Monocytes # (M) 0.78 k/uL (0-1.0); Neutrophils % (M) 36 %; Nucleated Red Blood Cells 0 /100 WBC (0-0); Target Cells Present; Total Cells Counted 100
[2021-06-29 02:27] LABS: Platelet Count 68 k/uL (150-450); Poikilocytosis (M) Present
[2021-06-29 02:33] LABS: Amorphous Sediment,Urine Occasional /hpf; Appearance,Urine Cloudy (Clear); Bilirubin,Urine Negative (Negative); Blood,Urine Negative (Negative); Color,Urine Yellow; Glucose,Urine (UA) Negative (Negative); Hyaline Casts,Urine 1 /lpf (0-2); Ketones,Urine Negative (Negative); Leukocyte Esterase,Urine Negative (Negative); Nitrite,Urine Negative (Negative); Protein,Urine Negative (Negative); RBC,Urine 2 /hpf (0-5); Specific Gravity,Urine 1.009 (1.001-1.035); Squamous Epithelial Cell,Urine 2 /hpf (0-4); WBC,Urine 6 /hpf (0-5)
[2021-06-29] MEDS ORDERED: AMPICILLIN-SULBACTAM 3 GM in SODIUM CHLORIDE 0.9% 100 ML IVPB STA (02:38)
[2021-06-29] MEDS ORDERED: MORPHINE SULFATE 4 MG/ML SYRINGE IV STA (02:38)
[2021-06-29 03:38] VITALS: RESP 16
[2021-06-29 03:39] VITALS: BP 119/64; PULSE 81
--- NOTE | 2021-06-29 04:09 | ED ---
Abdominal Pain HPI - General Chief Complaint: Abdominal Pain Stated Complaint: back pain Time Seen by Provider: 06/28/21 23:37 Source: patient Mode of arrival: ambulatory Limitations: no limitations - History of Present Illness Initial Comments: This patient is 31-year-old man who has history of previous cirrhosis. States that he is currently on the liver transplant list. He presents to have evaluation of approximately one week of right upper quadrant pain radiating to right flank. The patient states he is also having nausea. He has had decreased appetite. He states that when he tries to eat he just does not tolerate food. Sometimes the pain is worse. Sometimes there is increased nausea. He has not noted fever or chills. He has not noted change in bowel movements or urination. Bowel movement seemed to alternate between very loose and between hard and constipated. MD Complaint: abdominal pain Onset/Timin -: week(s) Location: RUQ Radiation: back Migration to: no migration Severity: moderate Quality: aching Consistency: constant Improves With: nothing Worsens With: nothing Associated Symptoms: nausea - Related Data Home Medications Medication Instructions Recorded Confirmed Lactulose 10 gm PO DAILY 04/24/21 05/30/21 Magnesium Oxide [Mag-Ox] 400 mg PO DAILY 04/24/21 05/30/21 Clindamycin Phosphate [Clindagel 1 applic TOPICAL BID 05/30/21 05/30/21 1%] Furosemide [Lasix] 40 mg PO DAILY 05/30/21 05/30/21 Melatonin 10 mg PO HS 05/30/21 05/30/21 Nystatin/Triamcin Cream [Mycolog 1 applic TOPICAL BID PRN 05/30/21 05/30/21 100,000-0.1 Unit/gm-% Cream] Vitamin E (Dl,Tocopheryl Acet) 400 unit PO DAILY 05/30/21 05/30/21 [Vitamin E (400 Iu = 180 mg)] Previous Rx's Medication Instructions Recorded Metoprolol Tartrate [Lopressor] 50 mg PO BID #60 tab 04/12/20 Spironolactone [Aldactone] 100 mg PO DAILY #30 tab 04/12/20 Disulfiram [Antabuse] 250 mg PO DAILY #30 tablet 04/27/21 Pantoprazole [Protonix] 40 mg PO BID #60 tab 06/01/21 Scopolamine 1 mg/72 Hr Patch 1 patch TRANSDERM Q72H #10 patch 06/01/21 [TransDerm Scop] Potassium Chloride ER [K-Dur 20] 20 meq PO DAILY 3 Days #3 tab 06/08/21 Scopolamine 1 mg/72 Hr Patch 1 patch TRANSDERM Q72H PRN #10 06/08/21 [TransDerm Scop] patch Ondansetron Odt [Zofran Odt] 4 mg PO Q8HR PRN 3 Days #9 tab 06/22/21 Allergies Allergy/AdvReac Type Severity Reaction Status Date / Time No Known Allergies Allergy Verified 06/28/21 23:10 Review of Systems ROS Statement: Those systems with pertinent positive or pertinent negative responses have been documented in the HPI. ROS Other: All systems not noted in ROS Statement are negative. Constitutional: Denies: fever, chills, weakness Respiratory: Denies: cough, dyspnea Cardiovascular: Denies: chest pain, palpitations, edema, syncope Gastrointestinal: Reports: abdominal pain, nausea. Denies: vomiting, diarrhea, constipation, melena, hematochezia Genitourinary: Denies: dysuria, hematuria Musculoskeletal: Denies: back pain Skin: Denies: rash Neurological: Denies: headache, weakness Past Medical History Past Medical History: Hypertension, Liver Disease, Seizure Disorder Additional Past Medical History / Comment(s): hisotry of Alcohol abuse, cirrhosis, ascites, esophageal varicies History of Any Multi-Drug Resistant Organisms: MRSA Date of last positivie culture/infection: 01/15/21 MDRO Source:: MRSA LEG Past Surgical History: Orthopedic Surgery Additional Past Surgical History / Comment(s): rt hand, 2 lt shoulder, large volume paracentesis Past Anesthesia/Blood Transfusion Reactions: No Reported Reaction Past Psychological History: No Psychological Hx Reported Smoking Status: Never smoker Past Alcohol Use History: None Reported, Daily, Heavy Past Drug Use History: None Reported - Past Family History Mother Family Medical History: Hypertension Additional Family Medical History / Comment(s): Mother is living. Father Family Medical History: CVA/TIA Additional Family Medical History / Comment(s): Father is living. General Exam General appearance: alert, in no apparent distress Head exam: Present: atraumatic, normocephalic Eye exam: Present: normal appearance. Absent: scleral icterus, conjunctival injection ENT exam: Present: normal oropharynx Neck exam: Present: normal inspection Respiratory exam: Present: normal lung sounds bilaterally. Absent: respiratory distress, wheezes, rales, rhonchi, stridor Cardiovascular Exam: Present: regular rate, normal rhythm, normal heart sounds. Absent: systolic murmur, diastolic murmur, rubs, gallop GI/Abdominal exam: Present: soft, tenderness. Absent: distended, guarding, rebound, rigid, mass, pulsatile mass, hernia Extremities exam: Present: normal inspection, normal capillary refill. Absent: pedal edema, calf tenderness Back exam: Present: normal inspection. Absent: CVA tenderness (R), CVA tenderness (L) Neurological exam: Present: alert Skin exam: Present: warm, dry, intact, normal color. Absent: rash Course Vital Signs 06/28/21 06/29/21 06/29/21 23:07 01:09 03:09 Temperature 98.1 F Pulse Rate 64 80 81 Respiratory 19 16 16 Rate Blood Pressure 129/74 120/66 119/64 O2 Sat by Pulse 100 98 98 Oximetry Medical Decision Making - Medical Decision Making Patient here with right upper quadrant pain, found to have suspected cholecystitis. Case discussed with surgery and given patient's underlying liver condition they would like him transferred to higher level of care facility. Discussed with patient, agrees also [facility] would be appropriate. Case is discussed with Dr. Christianson at [facility] who will accept transfer to [facility] - Lab Data Result diagrams: 06/29/21 00:12 06/29/21 00:12 Lab Results 06/29/21 06/29/21 06/29/21 Range/Units 00:12 00:12 00:12 WBC 7.1 (3.8-10.6) k/uL RBC 3.47 L (4.30-5.90) m/uL Hgb 11.4 L (13.0-17.5) gm/dL Hct 34.6 L (39.0-53.0) % MCV 99.6 (80.0-100.0) fL MCH 32.8 (25.0-35.0) pg MCHC 32.9 (31.0-37.0) g/dL RDW 18.3 H (11.5-15.5) % Plt Count 68 L (150-450) k/uL MPV 8.8 Neutrophils % (Manual) 36 % Band Neuts % (Manual) 1 % Lymphocytes % (Manual) 47 % Monocytes % (Manual) 11 % Eosinophils % (Manual) 4 % Basophils % (Manual) 1 % Neutrophils # (Manual) 2.60 (1.3-7.7) k/uL Lymphocytes # (Manual) 3.34 (1.0-4.8) k/uL Monocytes # (Manual) 0.78 (0-1.0) k/uL Eosinophils # (Manual) 0.28 (0-0.7) k/uL Basophils # (Manual) 0.07 (0-0.2) k/uL Nucleated RBCs 0 (0-0) /100 WBC Manual Slide Review Performed Poikilocytosis (manual Present Anisocytosis Slight Macrocytosis Slight Target Cells Present Sodium 136 L (137-145) mmol/L Potassium 3.7 (3.5-5.1) mmol/L Chloride 103 (98-107) mmol/L Carbon Dioxide 31 H (22-30) mmol/L Anion Gap 2 mmol/L BUN 11 (9-20) mg/dL Creatinine 0.91 (0.66-1.25) mg/dL Est GFR (CKD-EPI)AfAm >90 (>60 ml/min/1.73 sqM) Est GFR (CKD-EPI)NonAf >90 (>60 ml/min/1.73 sqM) Glucose 85 (74-99) mg/dL Plasma Lactic Acid Adiel (0.7-2.0) mmol/L Calcium 8.5 (8.4-10.2) mg/dL Total Bilirubin 3.1 H (0.2-1.3) mg/dL AST 77 H (17-59) U/L ALT 35 (4-49) U/L Alkaline Phosphatase 125 (38-126) U/L Total Protein 6.6 (6.3-8.2) g/dL Albumin 2.8 L (3.5-5.0) g/dL Amylase 88 (30-110) U/L Lipase 428 H (23-300) U/L Urine Color Yellow Urine Appearance Cloudy (Clear) Urine pH 7.0 (5.0-8.0) Ur Specific [place] 1.009 (1.001-1.035) Urine Protein Negative (Negative) Urine Glucose (UA) Negative (Negative) Urine Ketones Negative (Negative) Urine Blood Negative (Negative) Urine Nitrite Negative (Negative) Urine Bilirubin Negative (Negative) Urine Urobilinogen 2.0 (<2.0) mg/dL Ur Leukocyte Esterase Negative (Negative) Urine RBC 2 (0-5) /hpf Urine WBC 6 H (0-5) /hpf Ur Squamous Epith Cells 2 (0-4) /hpf Amorphous Sediment Occasional H (None) /hpf Hyaline Casts 1 (0-2) /lpf Coronavirus (PCR) (Not Detectd) 06/29/21 06/29/21 Range/Units 00:12 03:20 WBC (3.8-10.6) k/uL RBC (4.30-5.90) m/uL Hgb (13.0-17.5) gm/dL Hct (39.0-53.0) % MCV (80.0-100.0) fL MCH (25.0-35.0) pg MCHC (31.0-37.0) g/dL RDW (11.5-15.5) % Plt Count (150-450) k/uL MPV Neutrophils % (Manual) % Band Neuts % (Manual) % Lymphocytes % (Manual) % Monocytes % (Manual) % Eosinophils % (Manual) % Basophils % (Manual) % Neutrophils # (Manual) (1.3-7.7) k/uL Lymphocytes # (Manual) (1.0-4.8) k/uL Monocytes # (Manual) (0-1.0) k/uL Eosinophils # (Manual) (0-0.7) k/uL Basophils # (Manual) (0-0.2) k/uL Nucleated RBCs (0-0) /100 WBC Manual Slide Review Poikilocytosis (manual Anisocytosis Macrocytosis Target Cells Sodium (137-145) mmol/L Potassium (3.5-5.1) mmol/L Chloride (98-107) mmol/L Carbon Dioxide (22-30) mmol/L Anion Gap mmol/L BUN (9-20) mg/dL Creatinine (0.66-1.25) mg/dL Est GFR (CKD-EPI)AfAm (>60 ml/min/1.73 sqM) Est GFR (CKD-EPI)NonAf (>60 ml/min/1.73 sqM) Glucose (74-99) mg/dL Plasma Lactic Acid Adiel 0.9 (0.7-2.0) mmol/L Calcium (8.4-10.2) mg/dL Total Bilirubin (0.2-1.3) mg/dL AST (17-59) U/L ALT (4-49) U/L Alkaline Phosphatase (38-126) U/L Total Protein (6.3-8.2) g/dL Albumin (3.5-5.0) g/dL Amylase (30-110) U/L Lipase (23-300) U/L Urine Color Urine Appearance (Clear) Urine pH (5.0-8.0) Ur Specific [place] (1.001-1.035) Urine Protein (Negative) Urine Glucose (UA) (Negative) Urine Ketones (Negative) Urine Blood (Negative) Urine Nitrite (Negative) Urine Bilirubin (Negative) Urine Urobilinogen (<2.0) mg/dL Ur Leukocyte Esterase (Negative) Urine RBC (0-5) /hpf Urine WBC (0-5) /hpf Ur Squamous Epith Cells (0-4) /hpf Amorphous Sediment (None) /hpf Hyaline Casts (0-2) /lpf Coronavirus (PCR) Not Detected (Not Detectd) Disposition Clinical Impression: Abdominal pain, Cholecystitis Disposition: OTHER INSTITUTION NOT DEFINED Condition: Fair Is patient prescribed a controlled substance at d/c from ED?: No Referrals: Carlos Enrique Crowder MD [Primary Care Provider] - 1-2 days
[2021-06-29 04:27] LABS: INR 1.7 (<1.2); Partial Thromboplastin Time 29.3 sec (22.0-30.0); Prothrombin Time 17.5 sec (9.0-12.0)
== END 2021-06-29 04:26 | disposition other institution (70) ==
LOC: EC 22:58
DX: K81.9 Cholecystitis, unspecified (principal); Z20.822 Contact with and (suspected) exposure to COVID-19; I10 Essential (primary) hypertension; G40.909 Epilepsy, unspecified, not intractable, without status epilepticus; Z79.899 Other long term (current) drug therapy
CPT/HCPCS: 36415; 80053; 82150; 83605; 83690; 85025; 85610; 85730; 81001; 87635; 76705; 99285; 96365; 96375; J2270; J0295

== ENCOUNTER → 2021-06-28 | Outpatient (CLI) | payer OTHER ==
--- NOTE | 2021-06-28 14:27 | MR ---
EXAMINATION TYPE: MR brain wo/w con DATE OF EXAM: 06/28/2021 COMPARISON: NONE HISTORY: Transient visual loss,right eye TECHNIQUE: Multiplanar, multisequence images of the brain and brainstem is performed without and with IV contras t, utilizing 10 mL intravenous Gadavist . FINDINGS: Diffusion weighted images demonstrate no evidence of a recent infarct or other diffusion ab normality. There is no extra-axial fluid collection or significant white matter signal abnormality. The ventricular system and cisternal spaces are normal in size and appearance. The brain volume is age appropriate. Midline structures demonstrate normal morphology. The craniocervical junction appears within normal limits. Post contrast images demonstrate no abnormal enhancement. The dural venous sinuses appear pa tent. The visualized sinuses are clear and the globes are intact. IMPRESSION: no significant abnormality seen
== END | disposition home or self-care (01) ==
LOC: RADMRIMAIN 11:49
PROVIDERS: ATTEND Family Medicine
DX: H53.121 Transient visual loss, right eye (principal)
CPT/HCPCS: 70553; A9585

== ENCOUNTER → 2021-09-11 | Outpatient (CLI) | payer OTHER ==
--- NOTE | 2021-09-11 08:12 | US ---
EXAMINATION TYPE: US abdomen complete DATE OF EXAM: 09/11/2021 COMPARISON: CT & US 2021 CLINICAL HISTORY: K74.60 Unspecified cirrhosis of liver. Abdomen pain EXAM MEASUREMENTS: Liver Length: 17.5 cm Gallbladder Wall: 0.5 cm CBD: 0.4 cm Spleen: 12.4 cm Right Kidney: 12.3 x 6.1 x 6.2 cm Left Kidney: 13.5 x 6.6 x 5.7 cm Pancreas: visualized portions wnl, limited by overlying midline bowel gas Liver: measures in upper limits of normal, course echotexture Gallbladder: hydropic, multiple small echogenic foci, wall thickened Evidence for sonographic Lugo's sign: no CBD: visualized portions wnl, limited by overlying bowel gas Spleen: wnl Right Kidney: wnl Left Kidney: wnl Upper IVC: wnl Abd Aorta: wnl The liver is homogenous. The intrahepatic portion of the IVC and proximal abdominal aorta are within normal limits. Common bile duct is unremarkable. The visualized portions of the pancreas are homog enous. The spleen is unremarkable. Kidneys are symmetric and free of hydronephrosis. No renal lesi ons are seen. IMPRESSION: 1. I cannot exclude acute cholecystitis. Correlate clinically. 2. Hepatic steatosis versus underlying hepatocellular disease..
== END | disposition home or self-care (01) ==
LOC: RADUSWWP 06:56
PROVIDERS: ATTEND Family Medicine
DX: K74.60 Unspecified cirrhosis of liver (principal)
CPT/HCPCS: 76700

== ENCOUNTER → 2021-11-13 | Outpatient (CLI) | payer OTHER ==
[2021-11-13 12:13] LABS: ALT 52 U/L (4-49); AST 94 U/L (17-59); African American GFR (CKD) 46 (>60 ml/min/1.73 sqM); Albumin 3.8 g/dL (3.5-5.0); Albumin/Globulin Ratio 1.1; Alkaline Phosphatase 98 U/L (38-126); Anion Gap 13 mmol/L; Blood Urea Nitrogen 18 mg/dL (9-20); Carbon Dioxide 26 mmol/L (22-30); Chloride 101 mmol/L (98-107); Globulin 3.6 g/dL; Glucose 81 mg/dL (74-99); INR 1.6 (<1.2); Non-African American GFR(CKD) 40 (>60 ml/min/1.73 sqM); Partial Thromboplastin Time 27.6 sec (22.0-30.0); Potassium 3.7 mmol/L (3.5-5.1); Prothrombin Time 16.8 sec (9.0-12.0); Sodium 140 mmol/L (137-145); Total Bilirubin 2.7 mg/dL (0.2-1.3); Total Protein 7.4 g/dL (6.3-8.2)
[2021-11-13 12:28] LABS: T4, Free (Free Thyroxine) 1.42 ng/dL (0.78-2.19)
[2021-11-13 12:33] LABS: HCT 41.4 % (39.0-53.0); HGB 13.6 gm/dL (13.0-17.5); MCH 32.4 pg (25.0-35.0); MCHC 32.8 g/dL (31.0-37.0); MCV 98.8 fL (80.0-100.0); Mean Platelet Volume 9.7; Platelet Count 102 k/uL (150-450); RDW 14.9 % (11.5-15.5); WBC 8.5 k/uL (3.8-10.6)
[2021-11-13 12:52] LABS: Eosinophils # (M) 0.09 k/uL (0-0.7); Lymphocytes # (M) 2.64 k/uL (1.0-4.8); Neutrophils # (M) 4.08 k/uL (1.3-7.7); Neutrophils % (M) 48 %; Nucleated Red Blood Cells 0 /100 WBC (0-0); Total Cells Counted 100
[2021-11-13 12:55] LABS: Poikilocytosis (M) Present
[2021-11-13 18:58] LABS: Chol/HDL Ratio 6.52 Ratio; LDL Cholesterol,Calculated 117.9 mg/dL (0.0-131.0); VLDL Calculation 16.66 mg/dL (5.00-40.00)
== END | disposition home or self-care (01) ==
LOC: LABWHC1 11:27
PROVIDERS: ATTEND Physician Assistant Medical
DX: Z13.1 Encounter for screening for diabetes mellitus (principal); D64.9 Anemia, unspecified; R11.2 Nausea with vomiting, unspecified
CPT/HCPCS: 36415; 80053; 80061; 82140; 83036; 83735; 84439; 84443; 84481; 85025; 85610; 85730

== ENCOUNTER 2021-11-16 09:50 | Emergency (ER) | payer OTHER ==
[2021-11-16 09:55] VITALS: TEMP 98.2
[2021-11-16] MEDS ORDERED: PANTOPRAZOLE 40 MG/10 ML VIAL IVP STA (09:58)
[2021-11-16] MEDS ORDERED: ONDANSETRON 4 MG/2 ML VIAL IVP STA (09:59)
--- NOTE | 2021-11-16 10:18 | ED ---
General Adult HPI - General Chief complaint: GI Bleed Stated complaint: vomiting blood Time Seen by Provider: 11/16/21 09:57 Source: patient, RN notes reviewed, old records reviewed Mode of arrival: ambulatory Limitations: no limitations - History of Present Illness Initial comments: 41-year-old male presenting for evaluation of nausea vomiting, vomiting of blood. Patient had been doing well, not drinking alcohol for some time and that over the past several days and drinking beer. He's had some lab abnormalities which is been followed with his primary care provider including hyponatremia and elevated ammonia. The patient states he had an episode of vomiting this morning which had a moderate amount of red blood. He states he's had this in the past many times. He has not had endoscopy or further workup but has been scheduled on many occasions. No fever. No significant abdominal pain. - Related Data Home Medications Medication Instructions Recorded Confirmed Lactulose 10 gm PO DAILY 04/24/21 05/30/21 Magnesium Oxide [Mag-Ox] 400 mg PO DAILY 04/24/21 05/30/21 Clindamycin Phosphate [Clindagel 1 applic TOPICAL BID 05/30/21 05/30/21 1%] Furosemide [Lasix] 40 mg PO DAILY 05/30/21 05/30/21 Melatonin [Melatonin ER] 10 mg PO HS 05/30/21 05/30/21 Nystatin/Triamcin Cream [Mycolog 1 applic TOPICAL BID PRN 05/30/21 05/30/21 100,000-0.1 Unit/gm-% Cream] Vitamin E (Dl,Tocopheryl Acet) 400 unit PO DAILY 05/30/21 05/30/21 [Vitamin E (400 Iu = 180 mg)] Previous Rx's Medication Instructions Recorded Metoprolol Tartrate [Lopressor] 50 mg PO BID #60 tab 04/12/20 Spironolactone [Aldactone] 100 mg PO DAILY #30 tab 04/12/20 Disulfiram [Antabuse] 250 mg PO DAILY #30 tablet 04/27/21 Pantoprazole [Protonix] 40 mg PO BID #60 tab 06/01/21 Scopolamine 1 mg/72 Hr Patch 1 patch TRANSDERM Q72H #10 patch 06/01/21 [TransDerm Scop] Potassium Chloride ER [K-Dur 20] 20 meq PO DAILY 3 Days #3 tab 06/08/21 Scopolamine 1 mg/72 Hr Patch 1 patch TRANSDERM Q72H PRN #10 06/08/21 [TransDerm Scop] patch Ondansetron Odt [Zofran Odt] 4 mg PO Q8HR PRN 3 Days #9 tab 06/22/21 Allergies Allergy/AdvReac Type Severity Reaction Status Date / Time No Known Allergies Allergy Verified 11/16/21 09:55 Review of Systems ROS Statement: Those systems with pertinent positive or pertinent negative responses have been documented in the HPI. ROS Other: All systems not noted in ROS Statement are negative. Past Medical History Past Medical History: Hypertension, Liver Disease, Seizure Disorder Additional Past Medical History / Comment(s): hisotry of Alcohol abuse, cirrhosis, ascites, esophageal varicies History of Any Multi-Drug Resistant Organisms: MRSA Date of last positivie culture/infection: 01/15/21 MDRO Source:: MRSA LEG Past Surgical History: Orthopedic Surgery Additional Past Surgical History / Comment(s): rt hand, 2 lt shoulder, large volume paracentesis Past Anesthesia/Blood Transfusion Reactions: No Reported Reaction Past Psychological History: No Psychological Hx Reported Smoking Status: Never smoker Past Alcohol Use History: None Reported, Daily, Heavy Past Drug Use History: None Reported - Past Family History Mother Family Medical History: Hypertension Additional Family Medical History / Comment(s): Mother is living. Father Family Medical History: CVA/TIA Additional Family Medical History / Comment(s): Father is living. General Exam Limitations: no limitations General appearance: alert, in no apparent distress Head exam: Present: atraumatic, normocephalic Eye exam: Present: normal appearance, PERRL ENT exam: Present: normal exam Neck exam: Present: normal inspection. Absent: tenderness, meningismus Respiratory exam: Present: normal lung sounds bilaterally. Absent: respiratory distress, wheezes Cardiovascular Exam: Present: regular rate, normal rhythm GI/Abdominal exam: Present: soft. Absent: distended, tenderness, guarding, rebound Extremities exam: Present: normal inspection, normal capillary refill. Absent: pedal edema Neurological exam: Present: alert, oriented X3, CN II-XII intact. Absent: motor sensory deficit Psychiatric exam: Present: normal affect, normal mood Skin exam: Present: warm, dry, intact. Absent: cyanosis, diaphoretic, pallor Course Vital Signs 11/16/21 11/16/21 09:51 11:00 Temperature 98.2 F Pulse Rate 99 74 Respiratory 18 16 Rate Blood Pressure 130/79 120/76 O2 Sat by Pulse 99 100 Oximetry EKG Findings - EKG Comments: EKG Findings:: EKG: Sinus rhythm rate of 72 FL interval 176, QRS duration 99, QTC 433, no ST segment changes. Medical Decision Making - Medical Decision Making 41 -year-old male presenting with upper GI bleed, bright red bleeding. Patient is a daily drinker. He has a hemoglobin 11.2, 3 days prior this was 13.4. Patient is hemodynamically stable. He had one episode prior to arrival no further episodes in the emergency department. He is given Protonix. He has normal white blood cell count, INR 1.6, bilirubin 1.5. AST is 163, ammonia is 72. There is not gastroenterology at this facility currently. The patient will be transferred to [facility]. Case discussed with Dr. Greene who will accept. - Lab Data Result diagrams: 11/16/21 10:26 11/16/21 10:26 Lab Results 11/16/21 11/16/21 11/16/21 Range/Units 10:26 10:26 10:26 WBC 4.9 (3.8-10.6) k/uL RBC 3.65 L (4.30-5.90) m/uL Hgb 11.2 L (13.0-17.5) gm/dL Hct 34.5 L (39.0-53.0) % MCV 94.4 (80.0-100.0) fL MCH 30.8 (25.0-35.0) pg MCHC 32.6 (31.0-37.0) g/dL RDW 14.4 (11.5-15.5) % Plt Count 60 L (150-450) k/uL MPV 10.4 Neutrophils % 65 % Lymphocytes % 16 % Monocytes % 11 % Eosinophils % 5 % Basophils % 1 % Neutrophils # 3.2 (1.3-7.7) k/uL Lymphocytes # 0.8 L (1.0-4.8) k/uL Monocytes # 0.6 (0-1.0) k/uL Eosinophils # 0.2 (0-0.7) k/uL Basophils # 0.1 (0-0.2) k/uL Manual Slide Review Performed PT 16.1 H (9.0-12.0) sec INR 1.6 H (<1.2) APTT 26.7 (22.0-30.0) sec Sodium 133 L (137-145) mmol/L Potassium 3.9 (3.5-5.1) mmol/L Chloride 102 (98-107) mmol/L Carbon Dioxide 22 (22-30) mmol/L Anion Gap 9 mmol/L BUN 4 L (9-20) mg/dL Creatinine 0.87 (0.66-1.25) mg/dL Est GFR (CKD-EPI)AfAm >90 (>60 ml/min/1.73 sqM) Est GFR (CKD-EPI)NonAf >90 (>60 ml/min/1.73 sqM) Glucose 122 H (74-99) mg/dL Calcium 8.7 (8.4-10.2) mg/dL Magnesium 1.5 L (1.6-2.3) mg/dL Total Bilirubin 1.8 H (0.2-1.3) mg/dL AST 163 H (17-59) U/L ALT 75 H (4-49) U/L Alkaline Phosphatase 158 H (38-126) U/L Ammonia (<30) umol/L Total Protein 6.5 (6.3-8.2) g/dL Albumin 3.2 L (3.5-5.0) g/dL Lipase 303 H (23-300) U/L Serum Alcohol 59 mg/dL 11/16/21 Range/Units 10:26 WBC (3.8-10.6) k/uL RBC (4.30-5.90) m/uL Hgb (13.0-17.5) gm/dL Hct (39.0-53.0) % MCV (80.0-100.0) fL MCH (25.0-35.0) pg MCHC (31.0-37.0) g/dL RDW (11.5-15.5) % Plt Count (150-450) k/uL MPV Neutrophils % % Lymphocytes % % Monocytes % % Eosinophils % % Basophils % % Neutrophils # (1.3-7.7) k/uL Lymphocytes # (1.0-4.8) k/uL Monocytes # (0-1.0) k/uL Eosinophils # (0-0.7) k/uL Basophils # (0-0.2) k/uL Manual Slide Review PT (9.0-12.0) sec INR (<1.2) APTT (22.0-30.0) sec Sodium (137-145) mmol/L Potassium (3.5-5.1) mmol/L Chloride (98-107) mmol/L Carbon Dioxide (22-30) mmol/L Anion Gap mmol/L BUN (9-20) mg/dL Creatinine (0.66-1.25) mg/dL Est GFR (CKD-EPI)AfAm (>60 ml/min/1.73 sqM) Est GFR (CKD-EPI)NonAf (>60 ml/min/1.73 sqM) Glucose (74-99) mg/dL Calcium (8.4-10.2) mg/dL Magnesium (1.6-2.3) mg/dL Total Bilirubin (0.2-1.3) mg/dL AST (17-59) U/L ALT (4-49) U/L Alkaline Phosphatase (38-126) U/L Ammonia 72 H (<30) umol/L Total Protein (6.3-8.2) g/dL Albumin (3.5-5.0) g/dL Lipase (23-300) U/L Serum Alcohol mg/dL Disposition Clinical Impression: Alcohol abuse, Liver failure, Hematemesis Disposition: OTHER INSTITUTION NOT DEFINED Condition: Stable Is patient prescribed a controlled substance at d/c from ED?: No Referrals: Carlos Enrique Crowder MD [Primary Care Provider] - 1-2 days Time of Disposition: 11:31 - Out of Hospital Transfer - Req. Specs Out of Hospital Transfer - Requested Specifics: Other Emergency Center ([facility])
[2021-11-16 10:45] LABS: Basophils # (A) 0.1 k/uL (0-0.2); Basophils % (A) 1 %; Eosinophils # (A) 0.2 k/uL (0-0.7); Eosinophils % (A) 5 %; HCT 34.5 % (39.0-53.0); HGB 11.2 gm/dL (13.0-17.5); Lymphocytes # (A) 0.8 k/uL (1.0-4.8); Lymphocytes % (A) 16 %; MCH 30.8 pg (25.0-35.0); MCHC 32.6 g/dL (31.0-37.0); MCV 94.4 fL (80.0-100.0); Mean Platelet Volume 10.4; Monocytes # (A) 0.6 k/uL (0-1.0); Monocytes % (A) 11 %; Neutrophils # (A) 3.2 k/uL (1.3-7.7); Neutrophils % (A) 65 %; RBC 3.65 m/uL (4.30-5.90); RDW 14.4 % (11.5-15.5); WBC 4.9 k/uL (3.8-10.6)
[2021-11-16 10:56] LABS: ALT 75 U/L (4-49); AST 163 U/L (17-59); African American GFR (CKD) >90 (>60 ml/min/1.73 sqM); Albumin 3.2 g/dL (3.5-5.0); Alcohol 59 mg/dL; Alkaline Phosphatase 158 U/L (38-126); Anion Gap 9 mmol/L; Blood Urea Nitrogen 4 mg/dL (9-20); Calcium 8.7 mg/dL (8.4-10.2); Carbon Dioxide 22 mmol/L (22-30); Chloride 102 mmol/L (98-107); Glucose 122 mg/dL (74-99); Lipase 303 U/L (23-300); Magnesium 1.5 mg/dL (1.6-2.3); Non-African American GFR(CKD) >90 (>60 ml/min/1.73 sqM); Potassium 3.9 mmol/L (3.5-5.1); Sodium 133 mmol/L (137-145); Total Bilirubin 1.8 mg/dL (0.2-1.3); Total Protein 6.5 g/dL (6.3-8.2)
[2021-11-16] MEDS ORDERED: HYDROmorphone 0.5 MG/0.5 ML SYRINGE IVP STA (10:56)
[2021-11-16 11:10] LABS: INR 1.6 (<1.2)
[2021-11-16 11:11] LABS: Partial Thromboplastin Time 26.7 sec (22.0-30.0); Prothrombin Time 16.1 sec (9.0-12.0)
[2021-11-16 11:13] LABS: Platelet Count 60 k/uL (150-450)
[2021-11-16 11:55] VITALS: BP 128/93; PULSE 79; RESP 18
== END 2021-11-16 11:54 | disposition other institution (70) ==
LOC: EC 09:50
DX: K70.40 Alcoholic hepatic failure without coma (principal); F10.10 Alcohol abuse, uncomplicated; I10 Essential (primary) hypertension; Z86.69 Personal history of other diseases of the nervous system and sense organs; Y90.2 Blood alcohol level of 40-59 mg/100 ml
CPT/HCPCS: 36415; 93005; 86900; 86901; 80053; 82140; 83690; 83735; 85025; 85610; 85730; 86850; 99285; 96374; 96375; G0480; J2405; C9113; J1170; 80320

== ENCOUNTER 2021-12-09 08:42 | Day surgery (SDC) | payer OTHER ==
[2021-12-05 14:52] VITALS: BMI 32.5
[~2021-12-09 08:42] MED LIST changes: -ALBUMIN HUMAN 25% 50 ML in EMPTY BAG 1 BAG IVPB SCH; +LACTATED RINGERS 1,000 ML IV SCH
[2021-12-09] MEDS ORDERED: MIDAZOLAM 2 MG/2 ML VIAL ONE (09:43)
[2021-12-09] MEDS ORDERED: LIDOCAINE 2% INJ 20 MG/ML (2 ML VIAL) ONE (09:43)
[2021-12-09] MEDS ORDERED: fentaNYL (PF) 50 MCG/ML 2 ML AMP ONE (09:43)
[2021-12-09] MEDS ORDERED: PROPOFOL 10 MG/ML 20 ML VIAL IV ONE (09:43)
[2021-12-09 09:44] VITALS: RESP 16; TEMP 96.9
--- NOTE | 2021-12-09 09:47 | P.GSHP ---
History of Present Illness H&P Date: 12/09/21 Chief Complaint: GI bleed 41-year-old male here today for upper and lower endoscopy. Patient with history of intermittent hematemesis. 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 Recent liver enzymes remain elevated and INR 1.6. Recent platelet level. Patient has rectal bleeding at times as well. No family history of colon cancer. Past Medical History Past Medical History: Hypertension, Liver Disease, Seizure Disorder Additional Past Medical History / Comment(s): vomiting blood, hisotry of Alcohol abuse, cirrhosis, ascites, esophageal varicies,last seizure approx 2-3 mos ago History of Any Multi-Drug Resistant Organisms: MRSA Date of last positivie culture/infection: 01/15/21 MDRO Source:: MRSA LEG Past Surgical History: Orthopedic Surgery Additional Past Surgical History / Comment(s): rt hand, 2 lt shoulder, large volume paracentesis approx 4-5 times-last one done approx 1 1/1 yrs ago Past Anesthesia/Blood Transfusion Reactions: No Reported Reaction Smoking Status: Never smoker - Past Family History Mother Family Medical History: Hypertension Additional Family Medical History / Comment(s): Mother is living. Father Family Medical History: CVA/TIA Additional Family Medical History / Comment(s): Father is living. Medications and Allergies Home Medications Medication Instructions Recorded Confirmed Type Metoprolol Tartrate [Lopressor] 50 mg PO BID #60 tab 04/12/20 12/09/21 Rx Spironolactone [Aldactone] 100 mg PO DAILY #30 tab 04/12/20 12/09/21 Rx Lactulose 10 gm PO DAILY 04/24/21 12/09/21 History Magnesium Oxide [Mag-Ox] 400 mg PO DAILY 04/24/21 12/09/21 History Disulfiram [Antabuse] 250 mg PO DAILY #30 tablet 04/27/21 12/09/21 Rx Clindamycin Phosphate [Clindagel 1 applic TOPICAL BID 05/30/21 12/09/21 History 1%] Furosemide [Lasix] 40 mg PO DAILY 05/30/21 12/09/21 History Melatonin [Melatonin ER] 10 mg PO HS 05/30/21 12/09/21 History Nystatin/Triamcin Cream [Mycolog 1 applic TOPICAL BID PRN 05/30/21 12/09/21 History 100,000-0.1 Unit/gm-% Cream] Vitamin E (Dl,Tocopheryl Acet) 400 unit PO DAILY 05/30/21 12/09/21 History [Vitamin E (400 Iu = 180 mg)] Pantoprazole [Protonix] 40 mg PO BID #60 tab 06/01/21 12/09/21 Rx Potassium Chloride ER [K-Dur 20] 20 meq PO DAILY 3 Days #3 tab 06/08/21 12/09/21 Rx Ondansetron Odt [Zofran Odt] 4 mg PO Q8HR PRN 3 Days #9 tab 06/22/21 12/09/21 Rx Allergies Allergy/AdvReac Type Severity Reaction Status Date / Time No Known Allergies Allergy Verified 12/09/21 09:30 Surgical - Exam Vital Signs Temp Pulse Resp BP Pulse Ox 96.9 F L 62 16 146/81 100 12/09/21 09:38 12/09/21 09:38 12/09/21 09:38 12/09/21 09:38 12/09/21 09:38 Physical exam: General: Well-developed, well-nourished HEENT: Normocephalic, sclerae icteric Abdomen: Nontender, nondistended Extremities: No edema Neuro: Alert and oriented Assessment and Plan (1) GI bleeding Narrative/Plan: Proceed with upper and lower endoscopy Current Visit: No Status: Acute Code(s): K92.2 - GASTROINTESTINAL HEMOR RHAGE, UNSPECIFIED SNOMED Code(s): 49705782
--- NOTE | 2021-12-09 10:02 | P.PCN ---
Date of Procedure: 12/09/21 Procedure(s) Performed: PREOPERATIVE DIAGNOSIS: GI bleed POSTOPERATIVE DIAGNOSIS: Mild gastritis, mild distal esophagitis, small sliding hiatal hernia, normal colon PROCEDURE: 1. EGD 2. Colonoscopy ANESTHESIA: MAC SURGEON: Jose Nick M.D. SPECIMENS: None ENDOSCOPIC PROCEDURE: The patient was on the endoscopy table in the left decubitus position. The Olympus gastroscope was inserted into the oropharynx and passed under direct visualization to the region of the third portion of the duodenum. From that point the scope was slowly withdrawn inspecting all surfaces carefully. There were no neoplastic inflammatory or polypoid lesions throughout the duodenum. The pylorus was widely patent. The stomach was carefully inspected. There was mild gastritis present. A biopsy of the antrum took place to rule out H. pylori. Retroflexion revealed a small sliding hiatal hernia. Just at the GE junction there was mild inflammation seen. There was no significant varices noted. The remainder the esophagus appeared normal. The patient was kept on the endoscopy table in the left decubitus position. The Olympus colonoscope was inserted into the anus and passed under direct visualization to the base of the cecum. The appendiceal orifice was visualized. From that point the scope was slowly withdrawn inspecting all surfaces carefully. There were no neoplastic inflammatory or polypoid lesions throughout the cecum, ascending, transverse, descending, sigmoid and rectum. There was no visualized diverticulosis noted. The patient's prep was somewhat poor. Digital rectal examination was normal. The patient was taken to the recovery room in stable condition per anesthesia guidelines. RECOMMENDATIONS: Resume diet. Antiacid therapy. Recent bleeding likely on the basis of esophagitis. Recommend future upper endoscopy by GI for esophageal varices surveillance.
[2021-12-09 10:13] VITALS: PULSE 61
[2021-12-09 10:21] VITALS: BP 125/75
== END 2021-12-09 10:51 | disposition home or self-care (01) ==
LOC: ORWHC2ENDO 08:42
PROVIDERS: ATTEND Surgery
DX: K29.50 Unspecified chronic gastritis without bleeding (principal); K44.9 Diaphragmatic hernia without obstruction or gangrene; K20.90 Esophagitis, unspecified without bleeding; I10 Essential (primary) hypertension; G40.909 Epilepsy, unspecified, not intractable, without status epilepticus; K76.9 Liver disease, unspecified; K74.60 Unspecified cirrhosis of liver; R18.8 Other ascites; Z98.890 Other specified postprocedural states; Z82.3 Family history of stroke; Z82.49 Family history of ischemic heart disease and other diseases of the circulatory system; Z79.899 Other long term (current) drug therapy; Z79.1 Long term (current) use of non-steroidal anti-inflammatories (NSAID)
CPT/HCPCS: 43235; G0121; J2250; J3010; J2704; J2001; 45378

== ENCOUNTER 2022-01-12 11:11 | Emergency (ER) | payer OTHER ==
[2022-01-12 11:31] VITALS: TEMP 97.7
[2022-01-12] MEDS ORDERED: SODIUM CHLORIDE 0.9% 1,000 ML IV STA (12:25)
[2022-01-12] MEDS ORDERED: ONDANSETRON 4 MG/2 ML VIAL IVP STA (12:26)
[2022-01-12] MEDS ORDERED: HYDROmorphone 0.5 MG/0.5 ML SYRINGE IVP STA (12:26)
--- NOTE | 2022-01-12 12:33 | ED ---
Abdominal Pain HPI - General Chief Complaint: Abdominal Pain Stated Complaint: abd pain Time Seen by Provider: 01/12/22 12:15 Source: patient, RN notes reviewed Mode of arrival: ambulatory Limitations: no limitations - History of Present Illness Initial Comments: Patient is a 41 year old male presenting to the ER with a chief complaint of RUQ pain. Patient states that started last night around 7:30pm and has been constant. He states he has been told before he has gallstones but nothing has been done due to his cirrhosis. He describes it as a sharp 9/10 pain radiating to his back and right shoulder. Patient endorses associated vomiting/diarrhea last night with bright red blood present. Patient denies taking anything for the pain. Denies nausea, fevers, chest pain, or shortness of breath. - Related Data Home Medications Medication Instructions Recorded Confirmed Lactulose 10 gm PO DAILY 04/24/21 12/09/21 Magnesium Oxide [Mag-Ox] 400 mg PO DAILY 04/24/21 12/09/21 Clindamycin Phosphate [Clindagel 1 applic TOPICAL BID 05/30/21 12/09/21 1%] Furosemide [Lasix] 40 mg PO DAILY 05/30/21 12/09/21 Melatonin [Melatonin ER] 10 mg PO HS 05/30/21 12/09/21 Nystatin/Triamcin Cream [Mycolog 1 applic TOPICAL BID PRN 05/30/21 12/09/21 100,000-0.1 Unit/gm-% Cream] Vitamin E (Dl,Tocopheryl Acet) 400 unit PO DAILY 05/30/21 12/09/21 [Vitamin E (400 Iu = 180 mg)] Previous Rx's Medication Instructions Recorded Metoprolol Tartrate [Lopressor] 50 mg PO BID #60 tab 04/12/20 Spironolactone [Aldactone] 100 mg PO DAILY #30 tab 04/12/20 Disulfiram [Antabuse] 250 mg PO DAILY #30 tablet 04/27/21 Pantoprazole [Protonix] 40 mg PO BID #60 tab 06/01/21 Potassium Chloride ER [K-Dur 20] 20 meq PO DAILY 3 Days #3 tab 06/08/21 Ondansetron Odt [Zofran Odt] 4 mg PO Q8HR PRN 3 Days #9 tab 06/22/21 Allergies Allergy/AdvReac Type Severity Reaction Status Date / Time No Known Allergies Allergy Verified 12/09/21 09:30 Review of Systems ROS Statement: Those systems with pertinent positive or pertinent negative responses have been documented in the HPI. ROS Other: All systems not noted in ROS Statement are negative. Past Medical History Past Medical History: Hypertension, Liver Disease, Seizure Disorder Additional Past Medical History / Comment(s): vomiting blood, hisotry of Alcohol abuse, cirrhosis, ascites, esophageal varicies,last seizure approx 2-3 mos ago History of Any Multi-Drug Resistant Organisms: MRSA Date of last positivie culture/infection: 01/15/21 MDRO Source:: MRSA LEG Past Surgical History: Orthopedic Surgery Additional Past Surgical History / Comment(s): rt hand, 2 lt shoulder, large volume paracentesis approx 4-5 times-last one done approx 1 1/1 yrs ago Past Anesthesia/Blood Transfusion Reactions: No Reported Reaction Past Psychological History: No Psychological Hx Reported Smoking Status: Never smoker - Past Family History Mother Family Medical History: Hypertension Additional Family Medical History / Comment(s): Mother is living. Father Family Medical History: CVA/TIA Additional Family Medical History / Comment(s): Father is living. General Exam Limitations: no limitations General appearance: alert, in no apparent distress Head exam: Present: atraumatic, normocephalic, normal inspection Eye exam: Present: PERRL, EOMI, scleral icterus (mild). Absent: conjunctival injection, periorbital swelling ENT exam: Present: normal exam, mucous membranes moist Respiratory exam: Present: normal lung sounds bilaterally. Absent: respiratory distress, wheezes, rales, rhonchi, stridor Cardiovascular Exam: Present: regular rate, normal rhythm, normal heart sounds. Absent: systolic murmur, diastolic murmur, rubs, gallop, clicks GI/Abdominal exam: Present: soft, tenderness (RQU; positive Lamy ), guarding, normal bowel sounds Neurological exam: Present: alert, oriented X3, CN II-XII intact Psychiatric exam: Present: normal affect, normal mood Skin exam: Present: warm, dry, intact, normal color. Absent: rash Course Vital Signs 01/12/22 11:28 Temperature 97.7 F Pulse Rate 67 Respiratory 16 Rate Blood Pressure 120/66 O2 Sat by Pulse 100 Oximetry Medical Decision Making - Medical Decision Making 41-year-old male presents to emergency dept for abdominal pain HPI has known cholelithiasis which shows thickened a wall but no acute changes this was stable from prior he has no significant leukocytosis he does have mild hyperbilirubinemia again this is chronic with his liver cirrhosis. He does see Dennis Michael has discussed stent versus cholecystectomy. - Lab Data Result diagrams: 01/12/22 12:49 01/12/22 12:49 Lab Results 01/12/22 01/12/22 01/12/22 Range/Units 12:49 12:49 12:49 WBC 6.5 (3.8-10.6) k/uL RBC 3.86 L (4.30-5.90) m/uL Hgb 11.9 L (13.0-17.5) gm/dL Hct 36.0 L (39.0-53.0) % MCV 93.3 (80.0-100.0) fL MCH 30.8 (25.0-35.0) pg MCHC 33.0 (31.0-37.0) g/dL RDW 15.5 (11.5-15.5) % Plt Count 71 L (150-450) k/uL MPV 9.9 Neutrophils % 54 % Lymphocytes % 30 % Monocytes % 6 % Eosinophils % 7 % Basophils % 1 % Neutrophils # 3.5 (1.3-7.7) k/uL Lymphocytes # 2.0 (1.0-4.8) k/uL Monocytes # 0.4 (0-1.0) k/uL Eosinophils # 0.4 (0-0.7) k/uL Basophils # 0.1 (0-0.2) k/uL PT 16.7 H (9.0-12.0) sec INR 1.6 H (<1.2) APTT 28.6 (22.0-30.0) sec Sodium 136 L (137-145) mmol/L Potassium 3.9 (3.5-5.1) mmol/L Chloride 106 (98-107) mmol/L Carbon Dioxide 24 (22-30) mmol/L Anion Gap 6 mmol/L BUN 5 L (9-20) mg/dL Creatinine 0.95 (0.66-1.25) mg/dL Est GFR (CKD-EPI)AfAm >90 (>60 ml/min/1.73 sqM) Est GFR (CKD-EPI)NonAf >90 (>60 ml/min/1.73 sqM) Glucose 89 (74-99) mg/dL Plasma Lactic Acid Adiel (0.7-2.0) mmol/L Calcium 8.5 (8.4-10.2) mg/dL Total Bilirubin 3.0 H (0.2-1.3) mg/dL AST 102 H (17-59) U/L ALT 45 (4-49) U/L Alkaline Phosphatase 87 (38-126) U/L Ammonia (<30) umol/L Total Protein 6.6 (6.3-8.2) g/dL Albumin 3.2 L (3.5-5.0) g/dL Amylase 107 (30-110) U/L Lipase 526 H (23-300) U/L Serum Alcohol 92 mg/dL 01/12/22 Range/Units 12:49 WBC (3.8-10.6) k/uL RBC (4.30-5.90) m/uL Hgb (13.0-17.5) gm/dL Hct (39.0-53.0) % MCV (80.0-100.0) fL MCH (25.0-35.0) pg MCHC (31.0-37.0) g/dL RDW (11.5-15.5) % Plt Count (150-450) k/uL MPV Neutrophils % % Lymphocytes % % Monocytes % % Eosinophils % % Basophils % % Neutrophils # (1.3-7.7) k/uL Lymphocytes # (1.0-4.8) k/uL Monocytes # (0-1.0) k/uL Eosinophils # (0-0.7) k/uL Basophils # (0-0.2) k/uL PT (9.0-12.0) sec INR (<1.2) APTT (22.0-30.0) sec Sodium (137-145) mmol/L Potassium (3.5-5.1) mmol/L Chloride (98-107) mmol/L Carbon Dioxide (22-30) mmol/L Anion Gap mmol/L BUN (9-20) mg/dL Creatinine (0.66-1.25) mg/dL Est GFR (CKD-EPI)AfAm (>60 ml/min/1.73 sqM) Est GFR (CKD-EPI)NonAf (>60 ml/min/1.73 sqM) Glucose (74-99) mg/dL Plasma Lactic Acid Adiel 2.3 H* (0.7-2.0) mmol/L Calcium (8.4-10.2) mg/dL Total Bilirubin (0.2-1.3) mg/dL AST (17-59) U/L ALT (4-49) U/L Alkaline Phosphatase (38-126) U/L Ammonia <9 (<30) umol/L Total Protein (6.3-8.2) g/dL Albumin (3.5-5.0) g/dL Amylase (30-110) U/L Lipase (23-300) U/L Serum Alcohol mg/dL Disposition Clinical Impression: Cholelithiasis, Alcohol abuse, Liver cirrhosis Disposition: HOME SELF-CARE Condition: Stable Instructions (If sedation given, give patient instructions): Gallstones (ED) Additional Instructions: Please return to the Emergency Department if symptoms worsen or any other concerns. Is patient prescribed a controlled substance at d/c from ED?: No Referrals: Carlos Enrique Crowder MD [Primary Care Provider] - 1-2 days Time of Disposition: 14:17
[2022-01-12 13:19] LABS: INR 1.6 (<1.2); Partial Thromboplastin Time 28.6 sec (22.0-30.0); Prothrombin Time 16.7 sec (9.0-12.0)
[2022-01-12 13:20] LABS: ALT 45 U/L (4-49); AST 102 U/L (17-59); African American GFR (CKD) >90 (>60 ml/min/1.73 sqM); Albumin 3.2 g/dL (3.5-5.0); Alkaline Phosphatase 87 U/L (38-126); Amylase 107 U/L (30-110); Anion Gap 6 mmol/L; Blood Urea Nitrogen 5 mg/dL (9-20); Calcium 8.5 mg/dL (8.4-10.2); Carbon Dioxide 24 mmol/L (22-30); Chloride 106 mmol/L (98-107); Glucose 89 mg/dL (74-99); Lipase 526 U/L (23-300); Non-African American GFR(CKD) >90 (>60 ml/min/1.73 sqM); Potassium 3.9 mmol/L (3.5-5.1); Sodium 136 mmol/L (137-145); Total Protein 6.6 g/dL (6.3-8.2)
[2022-01-12 13:25] LABS: Alcohol 92 mg/dL; Lactic Acid, Venous 2.3 mmol/L (0.7-2.0)
[2022-01-12 13:26] LABS: Basophils # (A) 0.1 k/uL (0-0.2); Basophils % (A) 1 %; Eosinophils # (A) 0.4 k/uL (0-0.7); Eosinophils % (A) 7 %; HGB 11.9 gm/dL (13.0-17.5); Lymphocytes % (A) 30 %; MCH 30.8 pg (25.0-35.0); MCV 93.3 fL (80.0-100.0); Mean Platelet Volume 9.9; Monocytes # (A) 0.4 k/uL (0-1.0); Monocytes % (A) 6 %; Neutrophils # (A) 3.5 k/uL (1.3-7.7); Neutrophils % (A) 54 %; RBC 3.86 m/uL (4.30-5.90); RDW 15.5 % (11.5-15.5); WBC 6.5 k/uL (3.8-10.6)
--- NOTE | 2022-01-12 13:41 | US ---
EXAMINATION TYPE: US gallbladder DATE OF EXAM: 01/12/2022 COMPARISON: US September 11, 2021. CT abdomen and pelvis May 30, 2021 CLINICAL HISTORY: increasing pain, hx stones. Pt states known gallbladder issues and liver cirrhosis, ABD pain TECHNIQUE: Multiple sonographic images of the right upper quadrant are obtained. FINDINGS: EXAM MEASUREMENTS: Liver Length: 17.4 cm Gallbladder Wall: 0.5 cm CBD: 0.5 cm Right Kidney: 12.5 x 5.5 x 5.2 cm FERRY OPERATOR NOTES: Pancreas: Body wnl, head and tail gassed out Liver: Enlarged, heterogeneous, lobulated contour Gallbladder: Distended, wall thickened, small gallstones Evidence for sonographic Lugo's sign: Yes CBD: wnl Right Kidney: wnl, lower pole gassed out Visualized portion of pancreas within normal limits. Portions obscured by overlying bowel gas. Visual ized liver slightly heterogeneous without focal mass or ductal dilatation seen. Gallbladder has diste nded margins and abnormal gallbladder wall thickening. Intraluminal small mobile shadowing gallstones redemonstrated. IMPRESSION: Acute cholecystitis cannot be excluded as gallstones and abnormal gallbladder wall thicke arti are redemonstrated. Sonographic Lugo's sign is now noted positive.
[2022-01-12 13:48] LABS: Platelet Count 71 k/uL (150-450)
[2022-01-12 14:41] VITALS: BP 143/73; PULSE 63; RESP 17
== END 2022-01-12 14:40 | disposition home or self-care (01) ==
LOC: EC 11:11
DX: K80.20 Calculus of gallbladder without cholecystitis without obstruction (principal); F10.10 Alcohol abuse, uncomplicated; K74.60 Unspecified cirrhosis of liver; I10 Essential (primary) hypertension; Z79.899 Other long term (current) drug therapy
CPT/HCPCS: 36415; 80053; 82140; 82150; 83605; 83690; 85025; 85610; 85730; 76705; 99284; 96374; 96361 ×2; G0480; J1170; 80320

== ENCOUNTER 2022-06-12 14:04 | Emergency (ER) | payer OTHER ==
--- NOTE | 2022-06-12 15:05 | ED ---
General Adult HPI - General Chief complaint: Extremity Problem,Nontraumatic Stated complaint: LEFT LEG SWELLING Time Seen by Provider: 06/12/22 14:10 Source: patient, RN notes reviewed Mode of arrival: ambulatory Limitations: no limitations - History of Present Illness Initial comments: 41-year-old male with a past medical history significant for "liver scarring" presents to the emergency department with a chief complaint of acute left lower leg swelling. Patient reports that his leg is insulin for "a couple of days." He was seen at his primary care prior to arrival who recommended he be evaluated in the ED. He denies any injury or trauma. He denies any fever, chills, chest pain, shortness of breath, cough. He reports the last time he had this was diagnosed with cellulitis. He denies any numbness, tingling, weakness in the extremity. He is not taking anything for his symptoms. - Related Data Home Medications Medication Instructions Recorded Confirmed Lactulose 10 gm PO DAILY 04/24/21 06/12/22 Magnesium Oxide [Mag-Ox] 400 mg PO BID 04/24/21 06/12/22 Furosemide [Lasix] 40 mg PO BID 06/12/22 06/12/22 Sildenafil Citrate 50 mg PO DAILY PRN 06/12/22 06/12/22 Thiamine [Vitamin B-1] 100 mg PO DAILY 06/12/22 06/12/22 traZODone HCL [Desyrel] 50 mg PO HS 06/12/22 06/12/22 Previous Rx's Medication Instructions Recorded Metoprolol Tartrate [Lopressor] 50 mg PO BID #60 tab 04/12/20 Spironolactone [Aldactone] 100 mg PO DAILY #30 tab 04/12/20 Pantoprazole [Protonix] 40 mg PO BID #60 tab 06/01/21 Ondansetron Odt [Zofran Odt] 4 mg PO Q8HR PRN 3 Days #9 tab 06/22/21 Cephalexin [Keflex] 500 mg PO Q6HR #40 cap 06/12/22 Allergies Allergy/AdvReac Type Severity Reaction Status Date / Time No Known Allergies Allergy Verified 06/12/22 14:47 Review of Systems ROS Statement: Those systems with pertinent positive or pertinent negative responses have been documented in the HPI. ROS Other: All systems not noted in ROS Statement are negative. Past Medical History Past Medical History: Hypertension, Liver Disease, Seizure Disorder Additional Past Medical History / Comment(s): vomiting blood, hisotry of Alcohol abuse, cirrhosis, ascites, esophageal varicies,last seizure approx 2-3 mos ago History of Any Multi-Drug Resistant Organisms: MRSA Date of last positivie culture/infection: 01/15/21 MDRO Source:: MRSA LEG Past Surgical History: Orthopedic Surgery Additional Past Surgical History / Comment(s): rt hand, 2 lt shoulder, large volume paracentesis approx 4-5 times-last one done approx 1 1/1 yrs ago Past Anesthesia/Blood Transfusion Reactions: No Reported Reaction Past Psychological History: No Psychological Hx Reported Smoking Status: Never smoker Past Alcohol Use History: None Reported, Abuse Past Drug Use History: None Reported - Past Family History Mother Family Medical History: Hypertension Additional Family Medical History / Comment(s): Mother is living. Father Family Medical History: CVA/TIA Additional Family Medical History / Comment(s): Father is living. General Exam Limitations: no limitations General appearance: alert, in no apparent distress Head exam: Present: atraumatic, normocephalic, normal inspection Eye exam: Present: normal appearance, PERRL, EOMI. Absent: scleral icterus, conjunctival injection, periorbital swelling ENT exam: Present: normal exam, mucous membranes moist Neck exam: Present: normal inspection. Absent: tenderness, meningismus, lymphadenopathy Respiratory exam: Present: normal lung sounds bilaterally. Absent: respiratory distress, wheezes, rales, rhonchi, stridor Cardiovascular Exam: Present: regular rate, normal rhythm, normal heart sounds. Absent: systolic murmur, diastolic murmur, rubs, gallop, clicks GI/Abdominal exam: Present: soft, normal bowel sounds. Absent: distended, tenderness, guarding, rebound, rigid Extremities exam: Present: normal inspection, full ROM, normal capillary refill. Absent: tenderness, pedal edema, joint swelling, calf tenderness Left Knee exam: Present: normal inspection, full ROM Lower Leg exam: Present: swelling, ecchymosis, erythema. Absent: normal inspection, crepitus Ankle exam: Present: swelling, ecchymosis, erythema. Absent: deformity, crepitus Foot/Toe exam: Present: normal inspection (DT/PT pulses 2+ bilaterally, dylan's negative), tenderness, swelling, ecchymosis. Absent: full ROM Neurovascular tendon exam: Absent: no vascular compromise Back exam: Present: normal inspection Neurological exam: Present: alert, oriented X3, CN II-XII intact Psychiatric exam: Present: normal affect, normal mood Skin exam: Present: warm, dry, intact, normal color. Absent: rash Course Vital Signs 06/12/22 06/12/22 06/12/22 14:05 17:30 18:51 Temperature 98.2 F 98.3 F 98.7 F Pulse Rate 67 76 74 Respiratory 18 16 16 Rate Blood Pressure 112/68 126/70 128/73 O2 Sat by Pulse 99 98 99 Oximetry - Reevaluation(s) Reevaluation #1: 06/12/22 18:58 Patient reevaluated and updated on results. Patient reports drinking 2 beers and drinking mouthwash prior to arrival to the ED. Medical Decision Making - Medical Decision Making Was pt. sent in by a medical professional or institution (, PA, [facility], urgent care, hospital, or fdc...) When possible be specific @ -[No] Did you speak to anyone other than the patient for history (EMS, parent, family, police, friend...)? What history was obtained from this source @ -[No] Did you review nursing and triage notes (agree or disagree)? Why? @ -[I reviewed and agree with nursing and triage notes] Were old charts reviewed (outside hosp., previous admission, EMS record, old EKG, old radiological studies, urgent care reports/EKG's, fdc records)? Report findings @ -[No old charts were reviewed] Differential Diagnosis (chest pain, altered mental status, abdominal pain women, abdominal pain men, vaginal bleeding, weakness, fever, dyspnea, syncope, headache, dizziness, GI bleed, back pain, seizure, CVA, palpatations, mental health, musculoskeletal)? @ -[not applicable] EKG interpreted by me (3pts min.). @ -[As above] X-rays interpreted by me (1pt min.). @ -[None done] CT interpreted by me (1pt min.). @ -[None done] U/S interpreted by me (1pt. min.). @ -Ultrasound Doppler negative for any evidence of DVT What testing was considered but not performed or refused? (CT, X-rays, U/S, labs)? Why? @ -[None] What meds were considered but not given or refused? Why? @ -[None] Did you discuss the management of the patient with other professionals (professionals i.e. , PA, [facility], lab, RT, psych nurse, social science professor, well logger, teacher, business liaison officer, lining caser)? Give summary @ -[No] Was smoking cessation discussed for >3mins.? @ -[No] Was critical care preformed (if so, how long)? @ -[No] Were there social determinants of health that impacted care today? How? (Homelessness, low income, unemployed, alcoholism, drug addiction, transportation, low edu. Level, literacy, decrease access to med. care, residential, rehab)? @ -[No] Was there de-escalation of care discussed even if they declined (Discuss DNR or withdrawal of care, Hospice)? DNR status @ -[No] What co-morbidities impacted this encounter? (DM, HTN, Smoking, COPD, CAD, Canc er, CVA, ARF, Chemo, Hep., AIDS, mental health diagnosis, sleep apnea, morbid obesity)? @ -[None] Was patient admitted / discharged? Hospital course, mention meds given and route, prescriptions, significant lab abnormalities, going to OR and other pertinent info. @ -Discharged. This is a 41-year-old male who presents to the emerg ency department with L leg swelling. Patient had a thorough history and physical exam performed on the ED. Physical exam is essentially unremarkable. Heart rate regular rate and rhythm, lungs clear to auscultation bilaterally abdomen is soft and non-tender. Patient had x-rays performed which were negative. I discussed results in detail with the patient verbalized understanding and all questions were addressed. Return precautions were discussed at length. The patient was discharged in stable condition. Case discussed with MONSERRAT Jackson who agrees with plan of care. Patient was given a prescription for Keflex. He was strongly encouraged to follow up with his PCP on Wednesday. Undiagnosed new problem with uncertain prognosis? @ -[No] Drug Therapy requiring intensive monitoring for toxicity (Heparin, Nitro, Insulin, Cardizem)? @ -[No] Were any procedures done? @ -[No] Diagnosis/symptom? @ -left leg pain and swelling - left cellulitis Acute, or Chronic, or Acute on Chronic? @ -acute Uncomplicated (without systemic symptoms) or Complicated (systemic symptoms)? @ -uncomplicated Side effects of treatment? @ -[No] Exacerbation, Progression, or Severe Exacerbation? @ -[No] Poses a threat to life or bodily function? How? (Chest pain, [place], NM, pneumonia, PE, COPD, DKA, ARF, appy, cholecystitis, CVA, Diverticulitis, Homicidal, Suicidal, threat to staff... and all critical care pts) @ -low likelihood - Lab Data Result diagrams: 06/12/22 15:11 06/12/22 15:11 Lab Results 06/12/22 06/12/22 06/12/22 Range/Units 15:11 15:11 15:11 WBC 10.8 H (3.8-10.6) k/uL RBC 3.91 L (4.30-5.90) m/uL Hgb 11.3 L (13.0-17.5) gm/dL Hct 34.0 L (39.0-53.0) % MCV 87.0 (80.0-100.0) fL MCH 28.9 (25.0-35.0) pg MCHC 33.2 (31.0-37.0) g/dL RDW 15.4 (11.5-15.5) % Plt Count 63 L (150-450) k/uL MPV 9.9 Neutrophils % 78 % Lymphocytes % 8 % Monocytes % 8 % Eosinophils % 1 % Basophils % 0 % Neutrophils # 8.4 H (1.3-7.7) k/uL Lymphocytes # 0.9 L (1.0-4.8) k/uL Monocytes # 0.9 (0-1.0) k/uL Eosinophils # 0.1 (0-0.7) k/uL Basophils # 0.0 (0-0.2) k/uL Manual Slide Review Performed Target Cells Present ESR 12 (0-15) mm/hr Sodium 123 L (137-145) mmol/L Potassium 4.1 (3.5-5.1) mmol/L Chloride 92 L (98-107) mmol/L Carbon Dioxide 22 (22-30) mmol/L Anion Gap 9 mmol/L BUN 8 L (9-20) mg/dL Creatinine 0.82 (0.66-1.25) mg/dL Est GFR (CKD-EPI)AfAm >90 (>60 ml/min/1.73 sqM) Est GFR (CKD-EPI)NonAf >90 (>60 ml/min/1.73 sqM) Glucose 72 L (74-99) mg/dL Plasma Lactic Acid Adiel 1.2 (0.7-2.0) mmol/L Calcium 7.9 L (8.4-10.2) mg/dL Total Bilirubin 2.7 H (0.2-1.3) mg/dL AST 73 H (17-59) U/L ALT 27 (4-49) U/L Alkaline Phosphatase 78 (38-126) U/L C-Reactive Protein 6.2 H (<1.0) mg/dL Total Protein 6.2 L (6.3-8.2) g/dL Albumin 2.7 L (3.5-5.0) g/dL Disposition Clinical Impression: Cellulitis of left leg Disposition: HOME SELF-CARE Condition: Stable Additional Instructions: please return to the emergency department if symptoms worsen or persist Prescriptions: Cephalexin [Keflex] 500 mg PO Q6HR #40 cap Is patient prescribed a controlled substance at d/c from ED?: No Referrals: Carlos Enrique Crowder MD [Primary Care Provider] - 1-2 days Time of Disposition: 18:34
[2022-06-12] MEDS ORDERED: MORPHINE SULFATE 2 MG/ML SYRINGE IVP STA (15:40)
[2022-06-12 15:55] LABS: ALT 27 U/L (4-49); AST 73 U/L (17-59); African American GFR (CKD) >90 (>60 ml/min/1.73 sqM); Albumin 2.7 g/dL (3.5-5.0); Alkaline Phosphatase 78 U/L (38-126); Anion Gap 9 mmol/L; Blood Urea Nitrogen 8 mg/dL (9-20); Calcium 7.9 mg/dL (8.4-10.2); Carbon Dioxide 22 mmol/L (22-30); Chloride 92 mmol/L (98-107); Glucose 72 mg/dL (74-99); Non-African American GFR(CKD) >90 (>60 ml/min/1.73 sqM); Potassium 4.1 mmol/L (3.5-5.1); Sodium 123 mmol/L (137-145); Total Bilirubin 2.7 mg/dL (0.2-1.3); Total Protein 6.2 g/dL (6.3-8.2)
--- NOTE | 2022-06-12 16:00 | US ---
EXAMINATION TYPE: US venous doppler duplex LE LT DATE OF EXAM: 06/12/2022 3:50 PM COMPARISON: Lateral lower extremity venous ultrasound 01/12/2021 CLINICAL HISTORY: L leg swelling. left leg edema and pain for 2 days SIDE PERFORMED: left TECHNIQUE: The lower extremity deep venous system is examined utilizing real time linear array sonog niko with graded compression, doppler sonography and color-flow sonography. VESSELS IMAGED: Common Femoral Vein Deep Femoral Vein Greater Saphenous Vein * Femoral Vein Popliteal Vein Small Saphenous Vein * Proximal Calf Veins (* superficial vessels) Grayscale, color doppler, spectral doppler imaging performed of the deep veins of the lower extremiti es. There is normal flow, compressibility, vascular waveforms. Left Leg: No evidence of DVT. multiple lymph nodes left groin, largest = 3.6cm these demonstrate allyssa tral fatty hilum. IMPRESSION: 1. No deep venous thrombosis of the left lower extremity. 2. Nonspecific enlarged left groin lymph nodes redemonstrated.
[2022-06-12 16:06] LABS: Basophils % (A) 0 %; Eosinophils # (A) 0.1 k/uL (0-0.7); Eosinophils % (A) 1 %; HGB 11.3 gm/dL (13.0-17.5); Lymphocytes # (A) 0.9 k/uL (1.0-4.8); Lymphocytes % (A) 8 %; MCH 28.9 pg (25.0-35.0); MCHC 33.2 g/dL (31.0-37.0); Mean Platelet Volume 9.9; Monocytes # (A) 0.9 k/uL (0-1.0); Monocytes % (A) 8 %; Neutrophils # (A) 8.4 k/uL (1.3-7.7); Neutrophils % (A) 78 %; RBC 3.91 m/uL (4.30-5.90); RDW 15.4 % (11.5-15.5); WBC 10.8 k/uL (3.8-10.6)
[2022-06-12 16:29] LABS: Platelet Count 63 k/uL (150-450)
[2022-06-12 16:31] LABS: Target Cells Present
[2022-06-12 17:19] LABS: C Reactive Protein 6.2 mg/dL (<1.0)
[2022-06-12 17:22] LABS: Erythrocyte Sedimentation Rate 12 mm/hr (0-15)
[2022-06-12 17:32] VITALS: RESP 16
[2022-06-12] MEDS ORDERED: MORPHINE SULFATE 4 MG/ML SYRINGE IVP STA (18:32)
[2022-06-12 18:52] VITALS: BP 128/73; PULSE 74; TEMP 98.7
== END 2022-06-12 18:57 | disposition home or self-care (01) ==
LOC: EC 14:04
DX: L03.116 Cellulitis of left lower limb (principal); I10 Essential (primary) hypertension; Z79.899 Other long term (current) drug therapy
CPT/HCPCS: 36415; 80053; 85652; 83605; 85025; 86140; 87040; 93971; 99284; 96374; 96376; J2270 ×2

== ENCOUNTER 2022-06-28 21:05 | Inpatient (IN) | payer OTHER ==
[2022-06-28] MEDS ORDERED: MORPHINE SULFATE 4 MG/ML SYRINGE IV STA (22:18)
[2022-06-28] MEDS ORDERED: PANTOPRAZOLE 40 MG/10 ML VIAL IVP STA (22:19)
[2022-06-28 23:06] LABS: Anisocytosis Slight; Basophils % (A) 1 %; Eosinophils # (A) 0.3 k/uL (0-0.7); Eosinophils % (A) 5 %; HGB 11.4 gm/dL (13.0-17.5); Lymphocytes # (A) 3.1 k/uL (1.0-4.8); Lymphocytes % (A) 48 %; MCH 28.5 pg (25.0-35.0); MCHC 33.6 g/dL (31.0-37.0); Mean Platelet Volume 7.6; Monocytes # (A) 0.5 k/uL (0-1.0); Monocytes % (A) 8 %; Neutrophils # (A) 2.2 k/uL (1.3-7.7); Neutrophils % (A) 35 %; RDW 16.4 % (11.5-15.5); WBC 6.4 k/uL (3.8-10.6)
[2022-06-28 23:25] LABS: INR 1.6 (<1.2); Partial Thromboplastin Time 27.9 sec (22.0-30.0); Platelet Count 127 k/uL (150-450); Prothrombin Time 15.7 sec (9.0-12.0)
[2022-06-29 00:15] LABS: ALT 49 U/L (4-49); AST 165 U/L (17-59); African American GFR (CKD) >90 (>60 ml/min/1.73 sqM); Albumin 3.4 g/dL (3.5-5.0); Alkaline Phosphatase 92 U/L (38-126); Anion Gap 11 mmol/L; Blood Urea Nitrogen 3 mg/dL (9-20); Carbon Dioxide 25 mmol/L (22-30); Chloride 95 mmol/L (98-107); Glucose 80 mg/dL (74-99); Lipase 423 U/L (23-300); Magnesium 1.7 mg/dL (1.6-2.3); Non-African American GFR(CKD) >90 (>60 ml/min/1.73 sqM); Potassium 3.7 mmol/L (3.5-5.1); Sodium 131 mmol/L (137-145); Total Bilirubin 2.2 mg/dL (0.2-1.3)
--- NOTE | 2022-06-29 01:34 | XR ---
EXAM: XR Chest, 2 Views CLINICAL HISTORY: ITS.REASON XR Reason: Chest Pain TECHNIQUE: Frontal and lateral views of the chest. COMPARISON: No relevant prior studies available. FINDINGS: Lungs: No consolidation or mass. Pleural space: No effusion. Heart: No cardiomegaly. Bones/joints: No acute findings. IMPRESSION: No acute cardiopulmonary process.
--- NOTE | 2022-06-29 01:36 | CT ---
EXAM: CT Abdomen and Pelvis With Intravenous Contrast CLINICAL HISTORY: ITS.REASON CT Reason: abd pain, left leg swelling TECHNIQUE: Axial computed tomography images of the abdomen and pelvis with intravenous contrast. CTDI is 28.3 mGy and DLP is 1440.6 mGy-cm. This CT exam was performed using one or more of the following dose reduction techniques: automated exposure control, adjustment of the mA and/or kV according to patient size, and/or use of iterative reconstruction technique. COMPARISON: No relevant prior studies available. FINDINGS: ABDOMEN: Liver: Unremarkable. Gallbladder and bile ducts: Severely distended gallbladder with tiny stones. Possible trace pericholecystic fluid. Pancreas: Unremarkable. Spleen: Unremarkable. Adrenals: Unremarkable. Kidneys and ureters: Mild bilateral hydroureteronephrosis. No stone. Stomach and bowel: No bowel obstruction. No bowel wall thickening. PELVIS: Appendix: No evidence of appendicitis. Bladder: Severely distended bladder.. Reproductive: Unremarkable. ABDOMEN and PELVIS: Intraperitoneal space: Unremarkable. Bones/joints: No acute fractures. Soft tissues: Unremarkable. Vasculature: No abdominal aortic aneurysm. Lymph nodes: No enlarged lymph nodes. IMPRESSION: 1. Severely distended gallbladder with a few tiny stones present. Possible trace pericholecystic fluid. Recommend ultrasound. 2. Mild bilateral hydroureteronephrosis without any stones. The bladder is severely distended.
--- NOTE | 2022-06-29 01:51 | ED ---
Chest Pain HPI - General Chief Complaint: Chest Pain Stated Complaint: chest pain Time Seen by Provider: 06/28/22 21:36 Source: patient Mode of arrival: ambulatory Limitations: no limitations - History of Present Illness Initial Comments: 41-year-old male with past medical history of alcohol abuse who presents to emergency department reporting "chest pain". States that he has been having pain since Wednesday. He reports that he went to [facility] on for these complaints however I do obtain the records and it appears that the patient presented for left leg swelling. This has been chronic for the patient. He has had several ultrasounds which have not demonstrated DVT. He has been on antibiotics for cellulitis. Patient reports to me to left upper quadrants "chest pain" without any provocative factors. It has been consistent. States it makes him feel short of breath. Patient is also nauseated. He denies any fevers. No changes in his bowel or bladder habits. Patient admits that he is an alcoholic and he normally drinks up to 24 beers a day. Admits that his last drink was just prior to coming into the hospital. He denies fevers. No nausea or vomiting. No other alleviating, precipitating or modifying factors Patient was seen and [facility] emergency Department in [place] on the . He had an ultrasound done of his lower extremities which did not demonstrate a DVT. He also had a CT PE study which demonstrated no PE. Troponin was negative. - Related Data Home Medications Medication Instructions Recorded Confirmed Lactulose 10 gm PO DAILY 04/24/21 06/29/22 Magnesium Oxide [Mag-Ox] 400 mg PO BID 04/24/21 06/29/22 Furosemide [Lasix] 40 mg PO BID 06/12/22 06/29/22 Sildenafil Citrate 50 mg PO DAILY PRN 06/12/22 06/29/22 Thiamine [Vitamin B-1] 100 mg PO DAILY 06/12/22 06/29/22 traZODone HCL [Desyrel] 50 mg PO HS 06/12/22 06/29/22 Previous Rx's Medication Instructions Recorded Metoprolol Tartrate [Lopressor] 50 mg PO BID #60 tab 04/12/20 Spironolactone [Aldactone] 100 mg PO DAILY #30 tab 04/12/20 Pantoprazole [Protonix] 40 mg PO BID #60 tab 06/01/21 Ondansetron Odt [Zofran ODT] 4 mg PO Q8HR PRN 3 Days #9 tab 06/22/21 HYDROcodone/APAP 5-325MG [Gay 1 each PO Q4HR PRN #18 tab 07/02/22 5-325] Allergies Allergy/AdvReac Type Severity Reaction Status Date / Time No Known Allergies Allergy Verified 06/29/22 07:11 Review of Systems ROS Statement: Those systems with pertinent positive or pertinent negative responses have been documented in the HPI. ROS Other: All systems not noted in ROS Statement are negative. EKG Findings - EKG Comments: EKG Findings:: EKG demonstrates sinus rhythm with rate of 77. NV interval 195. QRS 118. QTC of 454. No acute ST segment elevations or depressions Past Medical History Past Medical History: Hypertension, Liver Disease, Seizure Disorder Additional Past Medical History / Comment(s): vomiting blood, hisotry of Alcohol abuse, cirrhosis, ascites, esophageal varicies,last seizure approx 2-3 mos ago History of Any Multi-Drug Resistant Organisms: MRSA Date of last positivie culture/infection: 01/15/21 MDRO Source:: MRSA LEG Past Surgical History: Orthopedic Surgery Additional Past Surgical History / Comment(s): rt hand, 2 lt shoulder, large volume paracentesis approx 4-5 times-last one done approx 1 1/1 yrs ago Past Anesthesia/Blood Transfusion Reactions: No Reported Reaction Past Psychological History: No Psychological Hx Reported Smoking Status: Never smoker Past Alcohol Use History: None Reported, Abuse, Daily, Heavy Past Drug Use History: None Reported - Past Family History Mother Family Medical History: Hypertension Additional Family Medical History / Comment(s): Mother is living. Father Family Medical History: CVA/TIA Additional Family Medical History / Comment(s): Father is living. General Exam Limitations: no limitations General appearance: alert, in no apparent distress, appears intoxicated Head exam: Present: atraumatic, normocephalic, normal inspection Eye exam: Present: normal appearance, PERRL, EOMI. Absent: scleral icterus, conjunctival injection, periorbital swelling ENT exam: Present: normal exam, mucous membranes moist Neck exam: Present: normal inspection. Absent: tenderness, meningismus, lymphadenopathy Respiratory exam: Present: normal lung sounds bilaterally. Absent: respiratory distress, wheezes, rales, rhonchi, stridor Cardiovascular Exam: Present: regular rate, normal rhythm, normal heart sounds. Absent: systolic murmur, diastolic murmur, rubs, gallop, clicks GI/Abdominal exam: Present: soft, tenderness (epigastric), normal bowel sounds. Absent: distended, guarding, rebound, rigid Extremities exam: Present: normal inspection, full ROM, normal capillary refill. Absent: tenderness, pedal edema, joint swelling, calf tenderness Back exam: Present: normal inspection Neurological exam: Present: alert, oriented X3, CN II-XII intact Psychiatric exam: Present: normal affect, normal mood Skin exam: Present: warm, dry, intact, normal color. Absent: rash Course Vital Signs 06/28/22 06/28/22 06/29/22 21:24 22:06 01:21 Temperature 98.2 F Pulse Rate 74 80 76 Respiratory 18 18 18 Rate Blood Pressure 136/81 108/74 129/89 O2 Sat by Pulse 100 97 97 Oximetry 06/29/22 06:17 Temperature Pulse Rate 71 Respiratory 16 Rate Blood Pressure 105/63 O2 Sat by Pulse 96 Oximetry Chest Pain MDM - MDM Was pt. sent in by a medical professional or institution (, PA, [employer], urgent care, hospital, or retirement...) When possible be specific @ -No Did you speak to anyone other than the patient for history (EMS, parent, family, police, friend...)? What history was obtained from this source @ -Friend provides history as patient is drunk and does not remember exact details Did you review nursing and triage notes (agree or disagree)? Why? @ -I reviewed and agree with nursing and triage notes Were old charts reviewed (outside hosp., previous admission, EMS record, old EKG, old radiological studies, urgent care reports/EKG's, retirement records)? Report findings @ - old charts were reviewed - patient seen previous for similar complaints and was also hospitalized. Also obtained records from [facility] for this comp laint that he was just evaluated for Differential Diagnosis (chest pain, altered mental status, abdominal pain women, abdominal pain men, vaginal bleeding, weakness, fever, dyspnea, syncope, headache, dizziness, GI bleed, back pain, seizure, CVA, palpatations, mental health, musculoskeletal)? @ -acs, stemi, cholelithiasis, cholecystitis EKG interpreted by me (3pts min.). @ -yes X-rays interpreted by me (1pt min.). @ -yes CT interpreted by me (1pt min.). @ -yes U/S interpreted by me (1pt. min.). @ -yes What testing was considered but not performed or refused? (CT, X-rays, U/S, labs)? Why? @ -None What meds were considered but not given or refused? Why? @ -None Did you discuss the management of the patient with other professionals (professionals i.e. [employer], PA, [employer], lab, RT, psych nurse, vp digital marketing social media and crm, presser all around, teacher, donor relations officer, continuous pillowcase cutter)? Give summary @ -Admitting physician Was smoking cessation discussed for >3mins.? @ -No Was critical care preformed (if so, how long)? @ -No Were there social determinants of health that impacted care today? How? (Homelessness, low income, unemployed, alcoholism, drug addiction, transportation, low edu. Level, literacy, decrease access to med. care, fci, rehab)? @ -alcohol abuse - patient drunk at this time. Was there de-escalation of care discussed even if they declined (Discuss DNR or withdrawal of care, Hospice)? DNR status @ -No What co-morbidities impacted this encounter? (DM, HTN, Smoking, COPD, CAD, Cancer, CVA, ARF, Chemo, Hep., AIDS, mental health diagnosis, sleep apnea, morbid obesity)? @ -alcohol abuse - patient drunk at this time Was patient admitted / discharged? Hospital course, mention meds given and route, prescriptions, significant lab abnormalities, going to OR and other pertinent info. @ -Upon arrival patient was placed into room 14. A thorough history and physical exam was performed. Did obtain records from [facility]. He is reporting to epigastric pain and was not evaluated for this in their emergency department. Laboratory studies are conducted and reviewed. Troponin is negative. CT is performed due to location of patient's pain which demonstrates a markedly dilated gall bladder with a thickened wall. Also has cholelithiasis. He is covered with antibiotics. He will be admitted for surgical consult. I will turn the patient's troponins. He was agreeable to admission. He is taken to the floor in stable condition Undiagnosed new problem with uncertain prognosis? @ -yes Drug Therapy requiring intensive monitoring for toxicity (Heparin, Nitro, Insulin, Cardizem)? @ -No Were any procedures done? @ -No Diagnosis/symptom? @ -acute epigastric pain, acute cholelithiasis, acute cholecystits Acute, or Chronic, or Acute on Chronic? @ -acute Uncomplicated (without systemic symptoms) or Complicated (systemic symptoms)? @ -ucomplicated Side effects of treatment? @ -No Exacerbation, Progression, or Severe Exacerbation? @ -No Poses a threat to life or bodily function? How? (Chest pain, USA, MD, pneumonia, PE, COPD, DKA, ARF, appy, cholecystitis, CVA, Diverticulitis, Homicidal, Suicidal, threat to staff... and all critical care pts) @ -yes - untreated infection could lead to sepsis Disposition Clinical Impression: Chest pain, Cholecystitis, Alcohol intoxication Disposition: ADMITTED IP TO THIS [facility] Condition: Good Is patient prescribed a controlled substance at d/c from ED?: No Time of Disposition: 04:25 Decision to Admit Reason: Admit from EC Decision Date: 06/29/22 Decision Time: 04:
--- NOTE | 2022-06-29 03:52 | US ---
EXAM: US Abdomen Limited, Gallbladder CLINICAL HISTORY: ITS.REASON US Reason: distended gallbladder TECHNIQUE: Real-time ultrasound of the right upper quadrant with image documentation. COMPARISON: No relevant prior studies available. FINDINGS: EXAM MEASUREMENTS: Liver Length: 16.5 cm Gallbladder Wall: .6 cm CBD: .5 cm Right Kidney: 12.5 x 6.9 x 5.4 cm SAND TEMPERER NOTES: Pancreas: Obscured by bowel gas Liver: Increased attenuation Gallbladder: 12.5 cm enlarged thickened wall with echogenic foci seen. Evidence for sonographic Lugo's sign: no CBD: wnl Right Kidney: Limited due to bowel gas. IMPRESSION: Fatty liver. Severely distended gallbladder with a few tiny stones. Thickened wall to 6 mm. Negative Lugo's sign.
[2022-06-29] MEDS ORDERED: NALOXONE 0.4 MG/ML 1 ML VIAL IV PRN (04:26)
[2022-06-29] MEDS ORDERED: THIAMINE 100 MG/ML 2 ML VIAL IM STA ×2 (05:23→21:41)
[2022-06-29] MEDS ORDERED: LORazepam 1 MG TAB PO PRN ×2 (05:23)
[2022-06-29] MEDS: PIPERACILLIN-TAZOBACTAM 3.375 GM in SODIUM CHLORIDE 0.9% 100 ML IVPB SCH ×3 (05:49→21:30)
[2022-06-29] MEDS: LORazepam 1 MG TAB PO PRN ×5 (06:02→21:30)
--- NOTE | 2022-06-29 06:08 | P.HPIM ---
History of Present Illness H&P Date: 06/29/22 Chief Complaint: chest pain , abd pain 41 year old male with alcohol dependance and abuse, liver cirhosis patient gives very inconsistent and vague history patient coming in due to left sided chest pain , described to be over the left lower ribs, worse with deep breathing, 8/10 in severity , sharp in nature that has been going on for 1 week, not related to activity. He also reports left leg swelling that has been going on for couple weeks. denies any trauma or recent travel , no hisotry of blood clots 10 days history of decrease apetite , he claims that he has not eaten anything since then. He also reports right sided abd pain , that has been going on for a year now off/on associated with nausea and repeated episodes of vomiting, sometimes with fresh blood, also having loose green stools, denies any fever, or chills. He was evaluated at [facility] and released last Wednesday. Left leg US done showed no evidence of acute DVT, CTA of the chest was done showed no evidence of acute PE. patient admits to alcohol abuse, he continues to drink heavily. he is known to have liver cirhosis and esophageal varices. he denies smoking or illicit drugs Review of Systems Pertinent positives as noted in HPI. All other systems were reviewed and are negative Past Medical History Past Medical History: Hypertension, Liver Disease, Seizure Disorder Additional Past Medical History / Comment(s): vomiting blood, hisotry of Alcohol abuse, cirrhosis, ascites, esophageal varicies, History of Any Multi-Drug Resistant Organisms: MRSA Date of last positivie culture/infection: 01/15/21 MDRO Source:: MRSA LEG Past Surgical History: Orthopedic Surgery Additional Past Surgical History / Comment(s): rt hand, 2 lt shoulder, large volume paracentesis approx 4-5 times-last one done approx 1 1/1 yrs ago Past Anesthesia/Blood Transfusion Reactions: No Reported Reaction Past Psychological History: No Psychological Hx Reported Smoking Status: Never smoker Past Alcohol Use History: None Reported, Abuse, Daily, Heavy Past Drug Use History: None Reported - Past Family History Mother Family Medical History: Hypertension Additional Family Medical History / Comment(s): Mother is living. Father Family Medical History: CVA/TIA Additional Family Medical History / Comment(s): Father is living. Medications and Allergies Home Medications Medication Instructions Recorded Confirmed Type Metoprolol Tartrate [Lopressor] 50 mg PO BID #60 tab 04/12/20 06/12/22 Rx Spironolactone [Aldactone] 100 mg PO DAILY #30 tab 04/12/20 06/12/22 Rx Lactulose 10 gm PO DAILY 04/24/21 06/12/22 History Magnesium Oxide [Mag-Ox] 400 mg PO BID 04/24/21 06/12/22 History Pantoprazole [Protonix] 40 mg PO BID #60 tab 06/01/21 06/12/22 Rx Ondansetron Odt [Zofran Odt] 4 mg PO Q8HR PRN 3 Days #9 tab 06/22/21 06/12/22 Rx Cephalexin [Keflex] 500 mg PO Q6HR #40 cap 06/12/22 Rx Furosemide [Lasix] 40 mg PO BID 06/12/22 06/12/22 History Sildenafil Citrate 50 mg PO DAILY PRN 06/12/22 06/12/22 History Thiamine [Vitamin B-1] 100 mg PO DAILY 06/12/22 06/12/22 History traZODone HCL [Desyrel] 50 mg PO HS 06/12/22 06/12/22 History Allergies Allergy/AdvReac Type Severity Reaction Status Date / Time No Known Allergies Allergy Verified 06/28/22 21:24 Physical Exam Vitals: Vital Signs Temp Pulse Resp BP Pulse Ox 06/29/22 01:21 76 18 129/89 97 06/28/22 22:06 80 18 108/74 97 06/28/22 21:24 98.2 F 74 18 136/81 100 Intake and Output 06/28/22 06/28/22 06/29/22 14:59 22:59 06:59 Other: Weight 103.419 kg Constitutional: No acute distress, cooperative Eyes: slight scleral jaundice, moist conjunctiva, Pupils equal round reactive to light ENMT: NC/AT Oropharynx clear, no erythema, or exudates Neck: Supple, no masses, or JVD No carotid bruits No thyromegaly Lungs: Clear to auscultation Clear to percussion Normal respiratory effort, no accessory muscle use Cardiovascular: Heart regular in rate and rhythm, No murmurs, gallops, or rubs non pitting left leg peripheral edema Abdominal: Soft tender to deep palpation overthe right upper quadrant , caban sign negative , no guarding, rebound or rigidity Abdomen moving with respiration Normoactive bowel sounds increase tympanic percussion note No palpable mass No abdominal wall hernia noted Skin: Normal temperature, tone, texture, turgor Extremities: No digital cyanosis No clubbing Pedal pulses intact and symmetrical Radial pulses intact and symmetrical No calf tenderness Psychiatric: Alert and oriented to person, place and time Neuro Muscles Strength 4/5 in all 4 extremities Sensation to light touch grossly present throughout Cranial nerves II-XII grossly intact Lymphatics: no palpable cervical or supraclavicular lymph nodes Results CBC & Chem 7: 06/28/22 22:38 06/28/22 22:38 Labs: Abnormal Lab Results - Last 24 Hours (Table) 06/28/22 06/28/22 06/28/22 Range/Units 22:38 22:38 22:38 RBC 4.00 L (4.30-5.90) m/uL Hgb 11.4 L (13.0-17.5) gm/dL Hct 34.0 L (39.0-53.0) % RDW 16.4 H (11.5-15.5) % Plt Count 127 L D (150-450) k/uL PT 15.7 H (9.0-12.0) sec INR 1.6 H (<1.2) Sodium 131 L (137-145) mmol/L Chloride 95 L (98-107) mmol/L BUN 3 L (9-20) mg/dL Creatinine 0.63 L (0.66-1.25) mg/dL Calcium 8.0 L (8.4-10.2) mg/dL Total Bilirubin 2.2 H (0.2-1.3) mg/dL AST 165 H (17-59) U/L Albumin 3.4 L (3.5-5.0) g/dL Lipase 423 H (23-300) U/L Assessment and Plan Assessment: 41 year old male with alcohol abuse, liver cirrhosis , presented for left sided chest pain and right sided abd pain , I discussed the case with ED doc, patient GB US showed enlarged GB with mulitple gall stones, I accepted the admission for surgical evaluation to rule out acute tad. with anticipated length of stay > 2 midnights atypical chest pain , doubt cardiac origin aspirin not given due to possible GI bleeding and history of esophageal varices EKG no acute ST changes troponin negative , continue to trend cardiac monitoring monitor vital signs supportive care gall bladder distention with gall stones ,rule out acute cholecystitis WBC 6.4 no leukocytosis monitor vital signs NPO surgical evaluation follow up cultures zosyn 3.375 IVPB q8hrs pain control with morphine 4 mg IVP PRN q4hrs IVF hydration with normal saline 75 cc per hour alcohol dependance monitor for alcohol withdrawal syndrome benzo per CIWA thiamine supportive care counseled to quit drinking liver cirhosis and esophageal varices chronic anemia , Hgb 11.4 thrombocytopenia , 2/2 alcohol abuse , with platelet of 127 continue with aldactone continue with lactulose cotninue with metoprolol 50 mg bid protonix 40 mg po bid liver enzymes , Bili 2.2 , AST 165 both slightly elevated , Alk phos 92 unremarkable urinary bladder distention with bilateral hydronephrosis urology evaluation check PVR left leg edema , non pitting unknown exact duration ED reported workup at [facility] June 26 showed negative for DVT on venous doppler US , CTA chest negative for acute PE full code DVT PPX Mechanical due to concerns for GI bleeding
[2022-06-29] MEDS: SODIUM CHLORIDE 0.9% 1,000 ML IV SCH ×2 (06:37→21:30)
[2022-06-29] MEDS: SPIRONOLACTONE 25 MG TAB PO SCH (08:28)
[2022-06-29] MEDS: LACTULOSE 20 GM/30 ML CUP PO SCH (08:28)
[2022-06-29] MEDS: METOPROLOL TARTRATE 50 MG TAB PO SCH ×2 (08:28→21:30)
[2022-06-29] MEDS: PANTOPRAZOLE 40 MG TABLET PO SCH ×2 (08:28→21:30)
[2022-06-29] MEDS ORDERED: ENOXAPARIN 40 MG/0.4 ML SYRINGE SQ SCH (09:00)
[2022-06-29 09:22] LABS: Anisocytosis Slight; HCT 34.4 % (39.0-53.0); HGB 11.4 gm/dL (13.0-17.5); MCH 28.6 pg (25.0-35.0); MCHC 33.1 g/dL (31.0-37.0); MCV 86.4 fL (80.0-100.0); Mean Platelet Volume 8.3; Platelet Count 114 k/uL (150-450); RBC 3.98 m/uL (4.30-5.90); RDW 16.6 % (11.5-15.5)
[2022-06-29 09:34] LABS: ALT 45 U/L (4-49); AST 135 U/L (17-59); African American GFR (CKD) >90 (>60 ml/min/1.73 sqM); Albumin 3.2 g/dL (3.5-5.0); Albumin/Globulin Ratio 0.7; Alkaline Phosphatase 87 U/L (38-126); Anion Gap 10 mmol/L; Blood Urea Nitrogen 2 mg/dL (9-20); Carbon Dioxide 27 mmol/L (22-30); Chloride 104 mmol/L (98-107); Globulin 4.3 g/dL; Glucose 90 mg/dL (74-99); Lipase 462 U/L (23-300); Non-African American GFR(CKD) >90 (>60 ml/min/1.73 sqM); Potassium 3.7 mmol/L (3.5-5.1); Sodium 141 mmol/L (137-145); Total Bilirubin 2.5 mg/dL (0.2-1.3); Total Protein 7.5 g/dL (6.3-8.2)
[2022-06-29 09:37] LABS: Alcohol 204 mg/dL
--- NOTE | 2022-06-29 11:04 | P.GSCN ---
History of Present Illness Consult date: 06/29/22 History of present illness: CHIEF COMPLAINT: Abdominal pain HISTORY OF PRESENT ILLNESS: This is a 41-year-old male with a known history of alcohol abuse and alcohol liver cirrhosis. Patient has required paracentesis in the past. Patient presents to the hospital with complaints of abdominal pain epigastric and right upper quadrant. He denies any nausea or vomiting. Patient reports that he is having issues with his gallbladder for over a year. He reports gallbladder attacks at least once every week. Patient is still actively drinking. His alcohol level is elevated. Patient had computed tomography scan and ultrasound with evidence of a severely distended gallbladder with gallstones. Patient denies any fever, chills or sweats. PAST MEDICAL HISTORY: Hypertension, alcoholic liver cirrhosis, seizure disorder, alcohol abuse, esophageal varices, PAST SURGICAL HISTORY: See below MEDICATIONS: See below ALLERGIES: See below SOCIAL HISTORY: No illicit drug use. REVIEW OF SYSTEMS: CONSTITUTIONAL: Denies fever or chills. HEENT: Denies blurred vision, vision changes, or eye pain. Denies hemoptysis CARDIOVASCULAR: Denies chest pain or pressure. RESPIRATORY: No shortness of breath. GASTROINTESTINAL: See HPI for pertinent findings HEMATOLOGIC: Denies bleeding disorders. GENITOURINARY: Denies any blood in urine or increased urinary frequency. SKIN: Denies pruitis. Denies rash. PHYSICAL EXAM: VITAL SIGNS: Reviewed GENERAL: Well-developed in no acute distress. HEENT: No sclera icterus. Extraocular movements grossly intact. Moist buccal mucosa. Head is atraumatic, normocephalic. No nasal drainage. ABDOMEN: Soft. Nondistended. Tenderness with palpation of the right upper quadrant NEUROLOGIC: Alert and oriented. Cranial nerves II through XII grossly intact. LABORATORY DATA: WBC is 4.0 Hgb 11.4 platelets 114 Sodium is 141 potassium is 3.7 creatinine 0.67 Total bilirubin 2.5 AST 135 ALT 45 alk phos 87 Troponins negative 3 Lipase 462 Serum alcohol level 204 IMAGING: Computed tomography scan abdomen and pelvis severely distended gallbladder with a few tiny stones present. Possible trace pericholecystic fluid. Mild bi lateral hydroureteronephrosis without any stones. The bladder severely distended. Gallbladder ultrasound with fatty liver. Severely distended gallbladder with a few tiny stones. Thickened wall to 6 mm. Negative Lugo sign. ASSESSMENT: 1. Chronic cholecystitis. Right upper quadrant abdominal pain with severely distended gallbladder and a few tiny gallstones noted on ultrasound and CT 2. Mild gallstone pancreatitis 3. Mildly elevated total bilirubin and LFTs 4. Alcohol intoxication 5. History of alcohol liver cirrhosis PLAN: -Patient is tentatively scheduled for laparoscopic cholecystectomy with Dr. Bloom -Keep patient NPO -Continue supportive Care -Continue antibiotics Physician Dedicated Owner Operator note has been reviewed by physician. Signing provider agrees with the documented findings, assessment, and plan of care. Past Medical History Past Medical History: Hypertension, Liver Disease, Seizure Disorder Additional Past Medical History / Comment(s): vomiting blood, hisotry of Alcohol abuse, cirrhosis, ascites, esophageal varicies,last seizure approx 2-3 mos ago History of Any Multi-Drug Resistant Organisms: MRSA Year Discovered:: 01/15/21 MDRO Source:: MRSA LEG Past Surgical History: Orthopedic Surgery Additional Past Surgical History / Comment(s): rt hand, 2 lt shoulder, large v olume paracentesis approx 4-5 times-last one done approx 1 1/1 yrs ago Past Anesthesia/Blood Transfusion Reactions: No Reported Reaction Past Psychological History: No Psychological Hx Reported Smoking Status: Never smoker Past Alcohol Use History: None Reported, Abuse, Daily, Heavy Past Drug Use History: None Reported - Past Family History Mother Family Medical History: Hypertension Additional Family Medical History / Comment(s): Mother is living. Father Family Medical History: CVA/TIA Additional Family Medical History / Comment(s): Father is living. Medications and Allergies Home Medications Medication Instructions Recorded Confirmed Type Metoprolol Tartrate [Lopressor] 50 mg PO BID #60 tab 04/12/20 06/29/22 Rx Spironolactone [Aldactone] 100 mg PO DAILY #30 tab 04/12/20 06/29/22 Rx Lactulose 10 gm PO DAILY 04/24/21 06/29/22 History Magnesium Oxide [Mag-Ox] 400 mg PO BID 04/24/21 06/29/22 History Pantoprazole [Protonix] 40 mg PO BID #60 tab 06/01/21 06/29/22 Rx Ondansetron Odt [Zofran Odt] 4 mg PO Q8HR PRN 3 Days #9 tab 06/22/21 06/29/22 Rx Furosemide [Lasix] 40 mg PO BID 06/12/22 06/29/22 History Sildenafil Citrate 50 mg PO DAILY PRN 06/12/22 06/29/22 History Thiamine [Vitamin B-1] 100 mg PO DAILY 06/12/22 06/29/22 History traZODone HCL [Desyrel] 50 mg PO HS 06/12/22 06/29/22 History Allergies Allergy/AdvReac Type Severity Reaction Status Date / Time No Known Allergies Allergy Verified 06/29/22 07:11 Surgical - Exam Vital Signs Temp Pulse Resp BP Pulse Ox 98.2 F 74 18 136/81 100 06/28/22 21:24 06/28/22 21:24 06/28/22 21:24 06/28/22 21:24 06/28/22 21:24 Results - Labs 06/29/22 08:50 06/29/22 08:50 Abnormal Lab Results - Last 24 Hours (Table) 06/28/22 06/28/22 06/28/22 Range/Units 22:38 22:38 22:38 RBC 4.00 L (4.30-5.90) m/uL Hgb 11.4 L (13.0-17.5) gm/dL Hct 34.0 L (39.0-53.0) % RDW 16.4 H (11.5-15.5) % Plt Count 127 L D (150-450) k/uL PT 15.7 H (9.0-12.0) sec INR 1.6 H (<1.2) Sodium 131 L (137-145) mmol/L Chloride 95 L (98-107) mmol/L BUN 3 L (9-20) mg/dL Creatinine 0.63 L (0.66-1.25) mg/dL Calcium 8.0 L (8.4-10.2) mg/dL Total Bilirubin 2.2 H (0.2-1.3) mg/dL AST 165 H (17-59) U/L Albumin 3.4 L (3.5-5.0) g/dL Lipase 423 H (23-300) U/L Serum Alcohol mg/dL 06/29/22 06/29/22 Range/Units 08:50 08:50 RBC 3.98 L (4.30-5.90) m/uL Hgb 11.4 L (13.0-17.5) gm/dL Hct 34.4 L (39.0-53.0) % RDW 16.6 H (11.5-15.5) % Plt Count 114 L (150-450) k/uL PT (9.0-12.0) sec INR (<1.2) Sodium (137-145) mmol/L Chloride (98-107) mmol/L BUN 2 L (9-20) mg/dL Creatinine (0.66-1.25) mg/dL Calcium 8.0 L (8.4-10.2) mg/dL Total Bilirubin 2.5 H (0.2-1.3) mg/dL AST 135 H (17-59) U/L Albumin 3.2 L (3.5-5.0) g/dL Lipase 462 H (23-300) U/L Serum Alcohol 204 H* mg/dL Diabetes panel 06/28/22 06/29/22 Range/Units 22:38 08:50 Sodium 131 L 141 (137-145) mmol/L Potassium 3.7 3.7 (3.5-5.1) mmol/L Chloride 95 L 104 (98-107) mmol/L Carbon Dioxide 25 27 (22-30) mmol/L BUN 3 L 2 L (9-20) mg/dL Creatinine 0.63 L 0.67 (0.66-1.25) mg/dL Glucose 80 90 (74-99) mg/dL Calcium 8.0 L 8.0 L (8.4-10.2) mg/dL AST 165 H 135 H (17-59) U/L ALT 49 45 (4-49) U/L Alkaline Phosphatase 92 87 (38-126) U/L Total Protein 8.0 7.5 (6.3-8.2) g/dL Albumin 3.4 L 3.2 L (3.5-5.0) g/dL Calcium panel 06/28/22 06/29/22 Range/Units 22:38 08:50 Calcium 8.0 L 8.0 L (8.4-10.2) mg/dL Albumin 3.4 L 3.2 L (3.5-5.0) g/dL Pituitary panel 06/28/22 06/29/22 Range/Units 22:38 08:50 Sodium 131 L 141 (137-145) mmol/L Potassium 3.7 3.7 (3.5-5.1) mmol/L Chloride 95 L 104 (98-107) mmol/L Carbon Dioxide 25 27 (22-30) mmol/L BUN 3 L 2 L (9-20) mg/dL Creatinine 0.63 L 0.67 (0.66-1.25) mg/dL Glucose 80 90 (74-99) mg/dL Calcium 8.0 L 8.0 L (8.4-10.2) mg/dL Adrenal panel 06/28/22 06/29/22 Range/Units 22:38 08:50 Sodium 131 L 141 (137-145) mmol/L Potassium 3.7 3.7 (3.5-5.1) mmol/L Chloride 95 L 104 (98-107) mmol/L Carbon Dioxide 25 27 (22-30) mmol/L BUN 3 L 2 L (9-20) mg/dL Creatinine 0.63 L 0.67 (0.66-1.25) mg/dL Glucose 80 90 (74-99) mg/dL Calcium 8.0 L 8.0 L (8.4-10.2) mg/dL Total Bilirubin 2.2 H 2.5 H (0.2-1.3) mg/dL AST 165 H 135 H (17-59) U/L ALT 49 45 (4-49) U/L Alkaline Phosphatase 92 87 (38-126) U/L Total Protein 8.0 7.5 (6.3-8.2) g/dL Albumin 3.4 L 3.2 L (3.5-5.0) g/dL
--- NOTE | 2022-06-29 13:08 | P.GSCN ---
History of Present Illness Consult date: 06/29/22 Reason for Consult: urinary retention, bilateral hydronephrosis History of present illness: this is a 41-year-old male with history of liver cirrhosis secondary to alcohol abuse. Admitted to the hospital with with epigastric pain, he's also been evaluated by general surgery for acute cholecystitis. He underwent a CT abdomen and pelvis on presentation showed evidence of bladder distention, with mild bilateral hydronephrosis.his creatinine is at 0.63. Denies any voiding dysfunction at baseline, denies any history of kidney stones or UTIs gross hematuria. No previous history of urinary retention. Denies any flank pain, or suprapubic abdominal pain. Review of Systems - Constitutional Denies fever, Denies weight loss - Cardiovascular Denies chest pain, Denies shortness of breath - Respiratory Denies cough, Denies 7 - Gastrointestinal Reports abdominal pain - Genitourinary Denies dysuria, Denies hematuria - Neurological Denies headaches, Denies syncope Past Medical History Past Medical History: Hypertension, Liver Disease, Seizure Disorder Additional Past Medical History / Comment(s): vomiting blood, hisotry of Alcohol abuse, cirrhosis, ascites, esophageal varicies,last seizure approx 2-3 mos ago History of Any Multi-Drug Resistant Organisms: MRSA Year Discovered:: 01/15/21 MDRO Source:: MRSA LEG Past Surgical History: Orthopedic Surgery Additional Past Surgical History / Comment(s): rt hand, 2 lt shoulder, large volume paracentesis approx 4-5 times-last one done approx 1 1/1 yrs ago Past Anesthesia/Blood Transfusion Reactions: No Reported Reaction Past Psychological History: No Psychological Hx Reported Smoking Status: Never smoker Past Alcohol Use History: None Reported, Abuse, Daily, Heavy Past Drug Use History: None Reported - Past Family History Mother Family Medical History: Hypertension Additional Family Medical History / Comment(s): Mother is living. Father Family Medical History: CVA/TIA Additional Family Medical History / Comment(s): Father is living. Medications and Allergies Home Medications Medication Instructions Recorded Confirmed Type Metoprolol Tartrate [Lopressor] 50 mg PO BID #60 tab 04/12/20 06/29/22 Rx Spironolactone [Aldactone] 100 mg PO DAILY #30 tab 04/12/20 06/29/22 Rx Lactulose 10 gm PO DAILY 04/24/21 06/29/22 History Magnesium Oxide [Mag-Ox] 400 mg PO BID 04/24/21 06/29/22 History Pantoprazole [Protonix] 40 mg PO BID #60 tab 06/01/21 06/29/22 Rx Ondansetron Odt [Zofran Odt] 4 mg PO Q8HR PRN 3 Days #9 tab 06/22/21 06/29/22 Rx Furosemide [Lasix] 40 mg PO BID 06/12/22 06/29/22 History Sildenafil Citrate 50 mg PO DAILY PRN 06/12/22 06/29/22 History Thiamine [Vitamin B-1] 100 mg PO DAILY 06/12/22 06/29/22 History traZODone HCL [Desyrel] 50 mg PO HS 06/12/22 06/29/22 History Allergies Allergy/AdvReac Type Severity Reaction Status Date / Time No Known Allergies Allergy Verified 06/29/22 07:11 Surgical - Exam Vital Signs Temp Pulse Resp BP Pulse Ox 98.2 F 74 18 136/81 100 06/28/22 21:24 06/28/22 21:24 06/28/22 21:24 06/28/22 21:24 06/28/22 21:24 - General no distress, moderate pain - Eyes normal ocular movement, no pale - ENT normal nares, normal mucosa - Respiratory normal expansion, normal respiratory effort - Abdomen Abdomen: soft, tender (right upper and lower quadrant) - Psychiatric oriented to time, oriented to person, oriented to place Results - Labs 06/29/22 08:50 06/29/22 08:50 Abnormal Lab Results - Last 24 Hours (Table) 06/28/22 06/28/22 06/28/22 Range/Units 22:38 22:38 22:38 RBC 4.00 L (4.30-5.90) m/uL Hgb 11.4 L (13.0-17.5) gm/dL Hct 34.0 L (39.0-53.0) % RDW 16.4 H (11.5-15.5) % Plt Count 127 L D (150-450) k/uL PT 15.7 H (9.0-12.0) sec INR 1.6 H (<1.2) Sodium 131 L (137-145) mmol/L Chloride 95 L (98-107) mmol/L BUN 3 L (9-20) mg/dL Creatinine 0.63 L (0.66-1.25) mg/dL Calcium 8.0 L (8.4-10.2) mg/dL Total Bilirubin 2.2 H (0.2-1.3) mg/dL AST 165 H (17-59) U/L Albumin 3.4 L (3.5-5.0) g/dL Lipase 423 H (23-300) U/L Serum Alcohol mg/dL 06/29/22 06/29/22 Range/Units 08:50 08:50 RBC 3.98 L (4.30-5.90) m/uL Hgb 11.4 L (13.0-17.5) gm/dL Hct 34.4 L (39.0-53.0) % RDW 16.6 H (11.5-15.5) % Plt Count 114 L (150-450) k/uL PT (9.0-12.0) sec INR (<1.2) Sodium (137-145) mmol/L Chloride (98-107) mmol/L BUN 2 L (9-20) mg/dL Creatinine (0.66-1.25) mg/dL Calcium 8.0 L (8.4-10.2) mg/dL Total Bilirubin 2.5 H (0.2-1.3) mg/dL AST 135 H (17-59) U/L Albumin 3.2 L (3.5-5.0) g/dL Lipase 462 H (23-300) U/L Serum Alcohol 204 H* mg/dL Diabetes panel 06/28/22 06/29/22 Range/Units 22:38 08:50 Sodium 131 L 141 (137-145) mmol/L Potassium 3.7 3.7 (3.5-5.1) mmol/L Chloride 95 L 104 (98-107) mmol/L Carbon Dioxide 25 27 (22-30) mmol/L BUN 3 L 2 L (9-20) mg/dL Creatinine 0.63 L 0.67 (0.66-1.25) mg/dL Glucose 80 90 (74-99) mg/dL Calcium 8.0 L 8.0 L (8.4-10.2) mg/dL AST 165 H 135 H (17-59) U/L ALT 49 45 (4-49) U/L Alkaline Phosphatase 92 87 (38-126) U/L Total Protein 8.0 7.5 (6.3-8.2) g/dL Albumin 3.4 L 3.2 L (3.5-5.0) g/dL Calcium panel 06/28/22 06/29/22 Range/Units 22:38 08:50 Calcium 8.0 L 8.0 L (8.4-10.2) mg/dL Albumin 3.4 L 3.2 L (3.5-5.0) g/dL Pituitary panel 06/28/22 06/29/22 Range/Units 22:38 08:50 Sodium 131 L 141 (137-145) mmol/L Potassium 3.7 3.7 (3.5-5.1) mmol/L Chloride 95 L 104 (98-107) mmol/L Carbon Dioxide 25 27 (22-30) mmol/L BUN 3 L 2 L (9-20) mg/dL Creatinine 0.63 L 0.67 (0.66-1.25) mg/dL Glucose 80 90 (74-99) mg/dL Calcium 8.0 L 8.0 L (8.4-10.2) mg/dL Adrenal panel 06/28/22 06/29/22 Range/Units 22:38 08:50 Sodium 131 L 141 (137-145) mmol/L Potassium 3.7 3.7 (3.5-5.1) mmol/L Chloride 95 L 104 (98-107) mmol/L Carbon Dioxide 25 27 (22-30) mmol/L BUN 3 L 2 L (9-20) mg/dL Creatinine 0.63 L 0.67 (0.66-1.25) mg/dL Glucose 80 90 (74-99) mg/dL Calcium 8.0 L 8.0 L (8.4-10.2) mg/dL Total Bilirubin 2.2 H 2.5 H (0.2-1.3) mg/dL AST 165 H 135 H (17-59) U/L ALT 49 45 (4-49) U/L Alkaline Phosphatase 92 87 (38-126) U/L Total Protein 8.0 7.5 (6.3-8.2) g/dL Albumin 3.4 L 3.2 L (3.5-5.0) g/dL Assessment and Plan Assessment: 41-year-old male with evidence of bladder distention with mild bilateral hydronephrosis on CT. No voiding dysfunction at baseline. Patient has history of alcohol abuse liver cirrhosis secondary to that. Discussed with him his bilateral hydronephrosis is secondary to bladder distention. his incomplete bl adder emptying most likely secondary to his Etoh intoxication. At this time recommend checking a postvoid residual, if more than 400 mL recommend inserting a High catheter. Less than 400 mL and can continue to observe.
--- NOTE | 2022-06-29 17:25 | P.PN ---
Subjective Progress Note Date: 06/29/22 Late entry, patient was evaluated at bedside at 9:30 this morning. Hospital course: Patient is a very pleasant 41-year-old male alcohol abuse, alcoholic liver cirrhosis, hypertension, seizure disorder, and esophageal varices. Patient presented to the emergency department on 06/28/22 with a chief complaint of right upper quadrant/epigastric pain. He underwent full evaluation in the emergency department. CBC revealing normocytic anemia with hemoglobin of 11.4 and thrombocytopenia with platelet count of 127. Coagulation profile showing elevated PT of 15.7 and elevated INR of 1.6. BMP showing hyponatremia with sodium 131, hypochloremia with chloride of 95, BUN 3, creatinine 0.63. Liver profile revealing elevated total bili of 2.2 and elevated AST of 165. Troponin less than 0.012 and pro-BMP 79. Lipase was 423. CT abdomen and IV contrast showing a severely distended gallbladder with possible trace of pericholecystic fluid and mild bilateral hydronephrosis with a severely distended bladder. Gallbladder ultrasound completed in radiology report reviewed showing severely distended gallbladder with a few tiny stones and thickened wall to 6 mm. EKG completed showing normal sinus rhythm at 77 bpm with no noted T-wave or ST abnormalities upon personal review and interpretation. Physical exam: Vital signs reviewed and stable. General: Nontoxic, no distress and appears stated age. Derm: Skin warm and dry, normal coloration for ethnicity. Head: Atraumatic, normocephalic and symmetric. Eyes: EOMs intact, no lid lag, and anicteric sclera Mouth: no lip lesions, mucus membranes moist Cardiovascular: regular rate and rhythm with normal S1S2, no murmur, positive posterior tibial pulses bilaterally, and cap refill < 2 seconds. Lungs: Respirations even, regular, and unlabored on room air. Lungs CTA bilaterally, no rhonchi, no rales, no wheezing, and no accessory muscle usage. Abdominal: soft, epigastric tenderness upon palpation, no guarding, no appreciable organomegaly Ext: ROM intact. No gross muscle atrophy, no edema, no contractures Neuro: Speech clear, face symmetrical and CN II-XII grossly intact with no noted focal neuro deficits Psych: Alert and oriented to person, place, time, and situation. Appropriate and pleasant affect. Assessment and Plan of Care: Alcohol intoxication and chronic long-standing alcoholic Chronic cholecystitis Urinary retention and bilateral hydronephrosis and bladder distention Normocytic anemia, likely secondary to chronic alcohol abuse Chronic thrombocytopenia, secondary to chronic alcohol abuse Mild pancreatitis Alcoholic liver cirrhosis History of esophageal varices History of seizure disorder History of hypertension -Continue monitoring of CIWA scores to continue and patient to be medicated with Ativan 0.5 mg every 4 hours as needed for CIWA score of 4-5, Ativan 1 mg every 4 hours for CIWA score of 6-7, Ativan 2 mg every 3 hours CIWA score of 8-9, and Ativan 2 mg every 2 hours forr CIWA score of 10 or greater. -Patient was seen and evaluated by general surgeon, discussed plan of care with general surgeon and general surgery PA and they are recommending cholecystectomy. Secondary to patient still intoxicated with blood alcohol level of 204 this morning, cholecystectomy to be completed tomorrow after patient is clinically sober. -Patient was evaluated by urologist secondary to urinary retention with bilateral hydronephrosis and bladder distention, reviewed documentation in chart. Urologist stating bladder distention and urinary retention is believed to be secondary to alcohol intoxication and recommending continued bladder management with post void residuals and straight cath as needed for urinary retention greater than 400 mL. -Order placed for stat urinalysis and urine drug screen. -Morning labs reviewed. Total bili increasing from 2.2-2.5 and AST decreasing from 165 down to 135. Lipase slightly increasing to 462 and as stated above serum alcohol level continuing to show patient to remain clinically intoxicated 12 hours after arrival to our facility with blood alcohol level of 204. -Continue seizure precautions, fall precautions, and aspiration precautions. Presurgical clearance for laparoscopic cholecystectomy secondary to acute cholecystitis -NSQIP score showing above average risk complications for this low risk surgical procedure due to patient's comorbities and alcoholic liver cirrhosis. NSQIP score showing an above average risk of 3.7% with average risk of 2.3% for serious complication, an above average risk of 0.2% with an average risk of 0.1% for cardiac complication, and an above average risk of of 0.1% with average risk of 0.1%. Greater than 4 Mets. -Patient is medically optimized for surgery at this time, patient is at a higher surgical risk as stated above secondary to his comorbidities with alcoholic liver cirrhosis, esophageal varices, and chronic alcoholism. However due to the need for surgical removal of gallbladder secondary to chronic cholecystitis, there is no absolute contraindication for patient to undergo surgery from a medical standpoint at this time. CODE STATUS: Full DVT prophylaxis: SCDs Discussed with: patient, RN, general surgeon, general surgery PA, Anticipated discharge date: clinical course to determine Anticipated discharge place: home Patient was seen independently by Nurse Pracitioner. This document was prepared using [employer] dictation software. Please allow for errors in economic historian, while rare they do occur. Willie Bragg NP rendered care for this patient independently, reviewed the findings and plan as documented in the note above. I did not physically speak with or examine the patient on this date. Objective - Vital Signs Vital signs: Vital Signs Temp 97.9 F 06/29/22 12:20 Pulse 67 06/29/22 12:20 Resp 18 06/29/22 12:20 BP 102/67 06/29/22 12:20 Pulse Ox 96 06/29/22 12:20 FiO2 Intake & Output 06/28/22 06/29/22 06/29/22 18:59 06:59 18:59 Intake Total 0 Output Total 400 1275 Balance -400 -1275 Weight 103.419 kg Intake: Oral 0 Output: Urine 400 1275 Other: Voiding Method Urinal # Bowel Movements 1 - Labs CBC & Chem 7: 06/29/22 08:50 06/29/22 08:50 Labs: Abnormal Lab Results - Last 24 Hours (Table) 06/28/22 06/28/22 06/28/22 Range/Units 22:38 22:38 22:38 RBC 4.00 L (4.30-5.90) m/uL Hgb 11.4 L (13.0-17.5) gm/dL Hct 34.0 L (39.0-53.0) % RDW 16.4 H (11.5-15.5) % Plt Count 127 L D (150-450) k/uL PT 15.7 H (9.0-12.0) sec INR 1.6 H (<1.2) Sodium 131 L (137-145) mmol/L Chloride 95 L (98-107) mmol/L BUN 3 L (9-20) mg/dL Creatinine 0.63 L (0.66-1.25) mg/dL Calcium 8.0 L (8.4-10.2) mg/dL Total Bilirubin 2.2 H (0.2-1.3) mg/dL AST 165 H (17-59) U/L Albumin 3.4 L (3.5-5.0) g/dL Lipase 423 H (23-300) U/L Serum Alcohol mg/dL 06/29/22 06/29/22 Range/Units 08:50 08:50 RBC 3.98 L (4.30-5.90) m/uL Hgb 11.4 L (13.0-17.5) gm/dL Hct 34.4 L (39.0-53.0) % RDW 16.6 H (11.5-15.5) % Plt Count 114 L (150-450) k/uL PT (9.0-12.0) sec INR (<1.2) Sodium (137-145) mmol/L Chloride (98-107) mmol/L BUN 2 L (9-20) mg/dL Creatinine (0.66-1.25) mg/dL Calcium 8.0 L (8.4-10.2) mg/dL Total Bilirubin 2.5 H (0.2-1.3) mg/dL AST 135 H (17-59) U/L Albumin 3.2 L (3.5-5.0) g/dL Lipase 462 H (23-300) U/L Serum Alcohol 204 H* mg/dL
[2022-06-29 21:16] LABS: Appearance,Urine Clear (Clear); Bilirubin,Urine Negative (Negative); Blood,Urine Negative (Negative); Color,Urine Yellow; Glucose,Urine (UA) Negative (Negative); Ketones,Urine Negative (Negative); Leukocyte Esterase,Urine Negative (Negative); Nitrite,Urine Negative (Negative); Protein,Urine Trace (Negative); Urobilinogen,Urine <2.0 mg/dL (<2.0)
[2022-06-29 21:24] LABS: Amphetamine Screen,Urine Not Detected (NotDetected); Barbiturate Screen,Urine Not Detected (NotDetected); Benzodiazepines Screen,Urine Detected (NotDetected); Cocaine Screen,Urine Not Detected (NotDetected); Methadone Screen, Urine Not Detected (NotDetected); Opiate Screen,Urine Detected (NotDetected); Oxycodone Screen, Urine Not Detected (NotDetected); Phencyclidine Screen,Urine Not Detected (NotDetected); Tricyclic Antidepressant,Urine Not Detected (NotDetected); Urn Cannabinoid Scrn Not Detected (NotDetected)
[2022-06-29] MEDS ORDERED: LORazepam 2 MG/ML INJ IV PRN ×3 (21:41)
[2022-06-29] MEDS: ONDANSETRON 4 MG/2 ML VIAL IVP PRN (21:47)
[2022-06-30] MEDS: PIPERACILLIN-TAZOBACTAM 3.375 GM in SODIUM CHLORIDE 0.9% 100 ML IVPB SCH ×3 (05:17→21:16)
[2022-06-30 06:37] LABS: ALT 38 U/L (4-49); AST 115 U/L (17-59); African American GFR (CKD) >90 (>60 ml/min/1.73 sqM); Albumin 2.9 g/dL (3.5-5.0); Albumin/Globulin Ratio 0.7; Alkaline Phosphatase 82 U/L (38-126); Anion Gap 8 mmol/L; Blood Urea Nitrogen 6 mg/dL (9-20); Calcium 8.2 mg/dL (8.4-10.2); Carbon Dioxide 22 mmol/L (22-30); Chloride 109 mmol/L (98-107); Globulin 4.2 g/dL; Glucose 67 mg/dL (74-99); Lipase 253 U/L (23-300); Non-African American GFR(CKD) >90 (>60 ml/min/1.73 sqM); Potassium 4.1 mmol/L (3.5-5.1); Sodium 139 mmol/L (137-145); Total Bilirubin 3.4 mg/dL (0.2-1.3); Total Protein 7.1 g/dL (6.3-8.2)
[2022-06-30 06:58] LABS: Anisocytosis Slight; Basophils % (A) 1 %; Eosinophils # (A) 0.2 k/uL (0-0.7); Eosinophils % (A) 5 %; HGB 11.5 gm/dL (13.0-17.5); Lymphocytes # (A) 1.7 k/uL (1.0-4.8); Lymphocytes % (A) 38 %; MCH 29.1 pg (25.0-35.0); MCHC 32.8 g/dL (31.0-37.0); MCV 88.6 fL (80.0-100.0); Mean Platelet Volume 8.5; Monocytes # (A) 0.4 k/uL (0-1.0); Monocytes % (A) 8 %; Neutrophils # (A) 1.9 k/uL (1.3-7.7); Neutrophils % (A) 44 %; RBC 3.96 m/uL (4.30-5.90); RDW 16.7 % (11.5-15.5); WBC 4.3 k/uL (3.8-10.6)
[2022-06-30] MEDS: METOPROLOL TARTRATE 50 MG TAB PO SCH ×2 (08:53→21:16)
[2022-06-30] MEDS: LORazepam 0.5 MG TAB PO PRN ×2 (08:57→19:08)
[2022-06-30] MEDS ORDERED: THIAMINE 100 MG TAB PO SCH (09:00)
[2022-06-30 11:04] LABS: Platelet Count 78 k/uL (150-450)
[2022-06-30] MEDS: PANTOPRAZOLE 40 MG TABLET PO SCH ×2 (11:42→21:16)
[2022-06-30] MEDS: LACTULOSE 20 GM/30 ML CUP PO SCH (11:43)
[2022-06-30] MEDS: THIAMINE 100 MG TAB PO SCH (11:43)
[2022-06-30] MEDS: SPIRONOLACTONE 25 MG TAB PO SCH (11:43)
[2022-06-30] MEDS: SODIUM CHLORIDE 0.9% 1,000 ML IV SCH ×2 (11:54→21:17)
[2022-06-30] MEDS: MORPHINE SULFATE 4 MG/ML SYRINGE IV PRN ×2 (13:15→21:22)
--- NOTE | 2022-06-30 14:10 | P.PN ---
Subjective Progress Note Date: 06/30/22 CHIEF COMPLAINT: Abdominal pain HISTORY OF PRESENT ILLNESS: Patient initially scheduled today for laparoscopic cholecystectomy with Dr. alexander. However, due to or scheduling surgery has been rescheduled for tomorrow. Patient still continues to have right upper quadrant abdominal pain. Denies any vomiting. Afebrile. Total bilirubin did go up from 2.5-3.4 ALT did come down from 135 to 1:15 lipase has normalized at 253 PHYSICAL EXAM: VITAL SIGNS: Reviewed. GENERAL: Well-developed in no acute distress. ABDOMEN: Soft. Nondistended. Right upper quadrant tenderness NEUROLOGIC: Alert and oriented. Cranial nerves II through XII grossly intact. ASSESSMENT: 1. Acute on Chronic cholecystitis. Right upper quadrant abdominal pain with severely distended gallbladder and a few tiny gallstones noted on ultrasound and CT 2. Mild gallstone pancreatitis. Lipase normalized 3. Elevated total bilirubin and LFTs with history of daily ETOH use 4. Alcohol intoxication 5. History of alcohol liver cirrhosis PLAN: -Patient rescheduled for laparoscopic cholecystectomy tomorrow with Dr. alexander -Start clear liquid diet -Nothing by mouth after midnight -Repeat labs in a.m. -Continue antibiotics [facility] Head note has been reviewed by physician. Signing provider agrees with the documented findings, assessment, and plan of care. Objective - Vital Signs Vital signs: Vital Signs Temp 98.2 F 06/30/22 12:02 Pulse 62 06/30/22 12:02 Resp 18 06/30/22 12:02 BP 146/88 06/30/22 12:02 Pulse Ox 99 06/30/22 12:02 FiO2 Intake & Output 06/29/22 06/30/22 06/30/22 18:59 06:59 18:59 Intake Total 1100 Output Total 1275 900 500 Balance -1275 200 -500 Intake: Intake, IV Titration 1100 Amount Piperacillin-Tazobactam 3 200 .375 gm In Sodium Chloride 0.9% 100 ml @ 25 mls/hr IVPB Q8H [facility] Rx#: [id number] Sodium Chloride 0.9% 1, 900 000 ml @ 75 mls/hr IV . [id number] [facility] Rx#:[id number] Output: Urine 1275 900 500 Other: Voiding Method Urinal Urinal # Bowel Movements 1 - Labs CBC & Chem 7: 06/30/22 05:15 06/30/22 05:15 Labs: Abnormal Lab Results - Last 24 Hours (Table) 06/29/22 06/30/22 06/30/22 Range/Units 19:35 05:15 05:15 RBC 3.96 L (4.30-5.90) m/uL Hgb 11.5 L (13.0-17.5) gm/dL Hct 35.0 L (39.0-53.0) % RDW 16.7 H (11.5-15.5) % Plt Count 78 L (150-450) k/uL Chloride 109 H (98-107) mmol/L BUN 6 L (9-20) mg/dL Glucose 67 L (74-99) mg/dL Calcium 8.2 L (8.4-10.2) mg/dL Total Bilirubin 3.4 H (0.2-1.3) mg/dL AST 115 H (17-59) U/L Albumin 2.9 L (3.5-5.0) g/dL Urine Protein Trace H (Negative) Urine Opiates Screen Detected H (NotDetected) U Benzodiazepines Scrn Detected H (NotDetected)
--- NOTE | 2022-06-30 14:29 | P.PN ---
Subjective Progress Note Date: 06/30/22 Patient is doing well today, pending lap tad Gen: awake, alert HEENT: normocephalic, atraumatic, good hearing acuity, moist mucous membranes Resp: good air exchange, breathing comfortably with no accessory muscle use CVS: good distal perfusion x 4, GI: soft, NTTP, ND : no SPT, no CVAT, reis catheter not present MSK: no pitting edema, no clubbing Neuro: non-focal, moving all extremities Psych: cooperative, euthymic mood Hospital course: Patient is a very pleasant 41-year-old male alcohol abuse, alcoholic liver cirrhosis, hypertension, seizure disorder, and esophageal varices. Patient presented to the emergency department on 06/28/22 with a chief complaint of right upper quadrant/epigastric pain. He underwent full evaluation in the emergency department. CBC revealing normocytic anemia with hemoglobin of 11.4 and thrombocytopenia with platelet count of 127. Coagulation profile showing elevated PT of 15.7 and elevated INR of 1.6. BMP showing hyponatremia with sodium 131, hypochloremia with chloride of 95, BUN 3, creatinine 0.63. Liver profile revealing elevated total bili of 2.2 and elevated AST of 165. Troponin less than 0.012 and pro-BMP 79. Lipase was 423. CT abdomen and IV contrast showing a severely distended gallbladder with possible trace of pericholecystic fluid and mild bilateral hydronephrosis with a severely distended bladder. Gallbladder ultrasound completed in radiology report reviewed showing severely distended gallbladder with a few tiny stones and thickened wall to 6 mm. EKG completed showing normal sinus rhythm at 77 bpm with no noted T-wave or ST a bnormalities upon personal review and interpretation. Assessment: Alcohol intoxication and chronic long-standing alcoholic Chronic cholecystitis Urinary retention and bilateral hydronephrosis and bladder distention Normocytic anemia, likely secondary to chronic alcohol abuse Chronic thrombocytopenia, secondary to chronic alcohol abuse Mild pancreatitis Alcoholic liver cirrhosis History of esophageal varices History of seizure disorder History of hypertension Presurgical clearance for laparoscopic cholecystectomy secondary to acute cholecystitis Plan: Today, patient is afebrile, 146/88, heart rate 62, 99% on room air. CBC demonstrates anemia down to 11.5, thrombocytopenia to 78 Visit metabolic panel is unremarkable Liver function tests show elevation of AST to 115, elevation of total bilirubin of 3.4, low total albumin of 2.9 Lipase was 253 Ativan 1-2 when necessary, monitor closely for toxicity Recommend proceeding to lap tad without further need of testing Continue Zosyn 3.375 g every 8 hours Patient is full code Objective - Vital Signs Vital signs: Vital Signs Temp 98.2 F 06/30/22 12:02 Pulse 62 06/30/22 12:02 Resp 18 06/30/22 12:02 BP 146/88 06/30/22 12:02 Pulse Ox 99 06/30/22 12:02 FiO2 Intake & Output 06/29/22 06/30/22 06/30/22 18:59 06:59 18:59 Intake Total 1100 Output Total 1275 900 500 Balance -1275 200 -500 Intake: Intake, IV Titration 1100 Amount Piperacillin-Tazobactam 3 200 .375 gm In Sodium Chloride 0.9% 100 ml @ 25 mls/hr IVPB Q8H [facility] Rx#: [id number] Sodium Chloride 0.9% 1, 900 000 ml @ 75 mls/hr IV . [id number] [facility] Rx#:[id number] Output: Urine 1275 900 500 Other: Voiding Method Urinal Urinal # Bowel Movements 1 - Labs CBC & Chem 7: 06/30/22 05:15 06/30/22 05:15 Labs: Abnormal Lab Results - Last 24 Hours (Table) 06/29/22 06/30/22 06/30/22 Range/Units 19:35 05:15 05:15 RBC 3.96 L (4.30-5.90) m/uL Hgb 11.5 L (13.0-17.5) gm/dL Hct 35.0 L (39.0-53.0) % RDW 16.7 H (11.5-15.5) % Plt Count 78 L (150-450) k/uL Chloride 109 H (98-107) mmol/L BUN 6 L (9-20) mg/dL Glucose 67 L (74-99) mg/dL Calcium 8.2 L (8.4-10.2) mg/dL Total Bilirubin 3.4 H (0.2-1.3) mg/dL AST 115 H (17-59) U/L Albumin 2.9 L (3.5-5.0) g/dL Urine Protein Trace H (Negative) Urine Opiates Screen Detected H (NotDetected) U Benzodiazepines Scrn Detected H (NotDetected)
[2022-07-01] MEDS: PIPERACILLIN-TAZOBACTAM 3.375 GM in SODIUM CHLORIDE 0.9% 100 ML IVPB SCH ×3 (05:35→21:10)
[2022-07-01 07:23] LABS: Anisocytosis Slight; HCT 33.5 % (39.0-53.0); HGB 10.8 gm/dL (13.0-17.5); MCH 28.9 pg (25.0-35.0); MCHC 32.4 g/dL (31.0-37.0); MCV 89.3 fL (80.0-100.0); Mean Platelet Volume 8.6; RBC 3.75 m/uL (4.30-5.90); RDW 16.5 % (11.5-15.5); WBC 3.4 k/uL (3.8-10.6)
[2022-07-01 07:29] LABS: Platelet Count 65 k/uL (150-450)
[2022-07-01 07:40] LABS: ALT 32 U/L (4-49); AST 88 U/L (17-59); African American GFR (CKD) >90 (>60 ml/min/1.73 sqM); Albumin 2.6 g/dL (3.5-5.0); Albumin/Globulin Ratio 0.7; Alkaline Phosphatase 72 U/L (38-126); Anion Gap 9 mmol/L; Blood Urea Nitrogen 5 mg/dL (9-20); Calcium 7.7 mg/dL (8.4-10.2); Carbon Dioxide 21 mmol/L (22-30); Chloride 104 mmol/L (98-107); Globulin 3.9 g/dL; Glucose 78 mg/dL (74-99); Non-African American GFR(CKD) >90 (>60 ml/min/1.73 sqM); Potassium 3.6 mmol/L (3.5-5.1); Sodium 134 mmol/L (137-145); Total Bilirubin 3.8 mg/dL (0.2-1.3); Total Protein 6.5 g/dL (6.3-8.2)
[2022-07-01] MEDS: THIAMINE 100 MG TAB PO SCH (09:37)
[2022-07-01] MEDS: PANTOPRAZOLE 40 MG TABLET PO SCH ×2 (09:37→21:10)
[2022-07-01] MEDS: LACTULOSE 20 GM/30 ML CUP PO SCH (09:37)
[2022-07-01] MEDS: SPIRONOLACTONE 25 MG TAB PO SCH (09:37)
[2022-07-01] MEDS: METOPROLOL TARTRATE 50 MG TAB PO SCH ×2 (10:00→21:10)
[2022-07-01] MEDS ORDERED: IV FLUID CONTINUATION 1,000 ML IV ONE (10:54)
--- NOTE | 2022-07-01 11:05 | P.PN ---
Subjective Progress Note Date: 07/01/22 Patient is doing well today, pending lap tad, this was delayed yesterday due to scheduling Gen: awake, alert HEENT: normocephalic, atraumatic, good hearing acuity, moist mucous membranes Resp: good air exchange, breathing comfortably with no accessory muscle use CVS: good distal perfusion x 4, GI: soft, NTTP, ND : no SPT, no CVAT, reis catheter not present MSK: no pitting edema, no clubbing Neuro: non-focal, moving all extremities Psych: cooperative, euthymic mood Hospital course: Patient is a very pleasant 41-year-old male alcohol abuse, alcoholic liver cirrhosis, hypertension, seizure disorder, and esophageal varices. Patient presented to the emergency department on 06/28/22 with a chief complaint of right upper quadrant/epigastric pain. He underwent full evaluation in the emergency d epartment. CBC revealing normocytic anemia with hemoglobin of 11.4 and thrombocytopenia with platelet count of 127. Coagulation profile showing elevated PT of 15.7 and elevated INR of 1.6. BMP showing hyponatremia with sodium 131, hypochloremia with chloride of 95, BUN 3, creatinine 0.63. Liver profile revealing elevated total bili of 2.2 and elevated AST of 165. Troponin less than 0.012 and pro-BMP 79. Lipase was 423. CT abdomen and IV contrast showing a severely distended gallbladder with possible trace of pericholecystic fluid and mild bilateral hydronephrosis with a severely distended bladder. Gallbladder ultrasound completed in radiology report reviewed showing severely distended gallbladder with a few tiny stones and thickened wall to 6 mm. EKG completed showing normal sinus rhythm at 77 bpm with no noted T-wave or ST abnormalities upon personal review and interpretation. Assessment: Alcohol intoxication and chronic long-standing alcoholic Chronic cholecystitis Urinary retention and bilateral hydronephrosis and bladder distention Normocytic anemia, likely secondary to chronic alcohol abuse Chronic thrombocytopenia, secondary to chronic alcohol abuse Mild pancreatitis Alcoholic liver cirrhosis History of esophageal varices History of seizure disorder History of hypertension Presurgical clearance for laparoscopic cholecystectomy secondary to acute cholecystitis Plan: Today, patient is afebrile, 158/100, heart rate 57, 98% on room air CBC demonstrates anemia down to 10.8, thrombocytopenia to 65 INR is 2.0 Complete metabolic panel shows hyponatremia to 134, total bilirubin of 3.8, AST of 88, albumin of 2.6 Ordered CBC, basic metabolic panel, magnesium for tomorrow Ativan 1-2 when necessary, monitor closely for toxicity Recommend proceeding to lap tad without further need of testing Continue Zosyn 3.375 g every 8 hours Patient is full code Objective - Vital Signs Vital signs: Vital Signs Temp 98.2 F 07/01/22 10:57 Pulse 57 L 07/01/22 10:57 Resp 16 07/01/22 10:57 BP 158/100 07/01/22 10:57 Pulse Ox 98 07/01/22 10:57 FiO2 Intake & Output 06/30/22 07/01/22 07/01/22 18:59 06:59 18:59 Intake Total 1360 Output Total 1050 1200 Balance -1050 160 Intake: Intake, IV Titration 1000 Amount Piperacillin-Tazobactam 3 100 .375 gm In Sodium Chloride 0.9% 100 ml @ 25 mls/hr IVPB Q8H [facility] Rx#: [id number] Sodium Chloride 0.9% 1, 900 000 ml @ 75 mls/hr IV . [id number] [facility] Rx#:[id number] Oral 360 Output: Urine 1050 1200 Other: Voiding Method Urinal - Labs CBC & Chem 7: 07/01/22 05:35 07/01/22 05:35 Labs: Abnormal Lab Results - Last 24 Hours (Table) 06/30/22 07/01/22 07/01/22 Range/Units 05:15 05:35 05:35 WBC 3.4 L (3.8-10.6) k/uL RBC 3.75 L (4.30-5.90) m/uL Hgb 10.8 L (13.0-17.5) gm/dL Hct 33.5 L (39.0-53.0) % RDW 16.5 H (11.5-15.5) % Plt Count 78 L 65 L (150-450) k/uL PT 20.0 H (9.0-12.0) sec INR 2.0 H (<1.2) Sodium (137-145) mmol/L Carbon Dioxide (22-30) mmol/L BUN (9-20) mg/dL Calcium (8.4-10.2) mg/dL Total Bilirubin (0.2-1.3) mg/dL AST (17-59) U/L Albumin (3.5-5.0) g/dL 07/01/22 Range/Units 05:35 WBC (3.8-10.6) k/uL RBC (4.30-5.90) m/uL Hgb (13.0-17.5) gm/dL Hct (39.0-53.0) % RDW (11.5-15.5) % Plt Count (150-450) k/uL PT (9.0-12.0) sec INR (<1.2) Sodium 134 L (137-145) mmol/L Carbon Dioxide 21 L (22-30) mmol/L BUN 5 L (9-20) mg/dL Calcium 7.7 L (8.4-10.2) mg/dL Total Bilirubin 3.8 H (0.2-1.3) mg/dL AST 88 H (17-59) U/L Albumin 2.6 L (3.5-5.0) g/dL
[2022-07-01 11:12] LABS: Glucose,Whole Blood 72 mg/dL (70-110)
[2022-07-01] MEDS: ONDANSETRON 4 MG/2 ML VIAL IVP PRN (11:15)
[2022-07-01] MEDS ORDERED: NEOSTIGMINE 1 MG/ML 10 ML VIAL ONE (12:46)
[2022-07-01] MEDS ORDERED: SUCCINYLCHOLINE CHLORIDE 200 MG/10 ML VIAL IV ONE (12:46)
[2022-07-01] MEDS ORDERED: GLYCOPYRROLATE 0.2 MG/ML 2 ML VIAL ONE (12:46)
[2022-07-01] MEDS ORDERED: PROPOFOL 10 MG/ML 20 ML VIAL IV ONE (12:46)
[2022-07-01] MEDS ORDERED: LIDOCAINE 2% INJ 20 MG/ML (2 ML VIAL) ONE (12:46)
[2022-07-01] MEDS ORDERED: ROCURONIUM 10 MG/ML (5 ML VIAL) IV ONE (12:46)
[2022-07-01] MEDS ORDERED: fentaNYL (PF) 50 MCG/ML 2 ML AMP ONE (12:46)
[2022-07-01] MEDS ORDERED: MIDAZOLAM 2 MG/2 ML VIAL ONE (12:46)
[2022-07-01] MEDS ORDERED: BUPIVACAIN-EPI 0.25%-1:200,000 30 ML VIAL SQ ONE (13:20)
[2022-07-01] MEDS ORDERED: LACTATED RINGERS 1,000 ML IV ONE (13:20)
[2022-07-01] MEDS ORDERED: HYDROmorphone 1 MG/ML 1 ML SYRINGE IVP PRN (13:58)
--- NOTE | 2022-07-01 13:58 | P.OP ---
Date of Procedure: 07/01/22 Preoperative Diagnosis: Cholecystitis Postoperative Diagnosis: Cholecystitis Cirrhosis Procedure(s) Performed: Laparoscopic cholecystectomy Anesthesia: ILDEFONSO Surgeon: Boby Bloom Estimated Blood Loss (ml): 10 Pathology: other (Gallbladder) Condition: stable Disposition: PACU Description of Procedure: The patient was placed on the operating table. The patient received a general endotracheal tube anesthesia. The patients abdomen was prepped and draped in the usual sterile fashion. Through an infraumbilical stab incision, the fascia of the anterior abdominal wall was grasped with a pair of Kochers and then the Veress needle was placed in the peritoneal cavity. Position of the Veress needle was confirmed with positive drop test. The abdomen was then insufflated. After adequate insufflation, the 10 mm trocar was placed in the peritoneal cavity. Following this the laparoscope was placed in the peritoneal cavity. The patient was placed in the head-up, right side up position and then a 5 mm trocar was placed in the right lateral and right subcostal position under direct visualization. A 8 mm trocar was placed in the epigastric position. The gallbladder was grasped in the fundus and infundibulum. The gallbladder was grossly inflamed. The liver was cirrhotic and enlarged There is no ascites Traction on the gallbladder was placed in the lateral and the cephalad positions. The triangle of Calot was visualized.. The cystic duct was bluntly dissected until the union of the cystic duct and common bile duct was seen. A critical view of safety was achieved. The cystic duct was then divided and sealed with the Harmonic scissors. A PDS Endoloop was then placed throughout the cystic duct stump. The cystic artery divided and sealed with the Harmonic scissors. The gallbladder was then removed from the liver bed using Harmonic scissors. The gallbladder was then extracted through the epigastric port site. Operative field was checked for any bleeding spots and Harmonic scissors was used to coagulate the liver bed. The abdomen was irrigated. The trocars were removed. The skin was closed using interrupted 3-0 Vicryl suture. Dermabond dressing were applied. The patient tolerated the procedure well.
[2022-07-01] MEDS: SODIUM CHLORIDE 0.9% 1,000 ML IV SCH ×2 (16:18→16:38)
[2022-07-02 01:09] VITALS: RESP 18
[2022-07-02] MEDS: PIPERACILLIN-TAZOBACTAM 3.375 GM in SODIUM CHLORIDE 0.9% 100 ML IVPB SCH (06:22)
[2022-07-02 09:08] LABS: ALT 31 U/L (4-49); AST 79 U/L (17-59); African American GFR (CKD) >90 (>60 ml/min/1.73 sqM); Albumin 2.6 g/dL (3.5-5.0); Albumin/Globulin Ratio 0.7; Alkaline Phosphatase 70 U/L (38-126); Anion Gap 9 mmol/L; Blood Urea Nitrogen 4 mg/dL (9-20); Calcium 7.9 mg/dL (8.4-10.2); Carbon Dioxide 21 mmol/L (22-30); Chloride 105 mmol/L (98-107); Globulin 3.9 g/dL; Glucose 108 mg/dL (74-99); Non-African American GFR(CKD) >90 (>60 ml/min/1.73 sqM); Potassium 3.8 mmol/L (3.5-5.1); Sodium 135 mmol/L (137-145); Total Bilirubin 3.3 mg/dL (0.2-1.3); Total Protein 6.5 g/dL (6.3-8.2)
[2022-07-02] MEDS: METOPROLOL TARTRATE 50 MG TAB PO SCH (10:15)
[2022-07-02] MEDS: LACTULOSE 20 GM/30 ML CUP PO SCH (10:15)
[2022-07-02] MEDS: PANTOPRAZOLE 40 MG TABLET PO SCH (10:15)
[2022-07-02] MEDS: SPIRONOLACTONE 25 MG TAB PO SCH (10:15)
[2022-07-02] MEDS: THIAMINE 100 MG TAB PO SCH (10:15)
[2022-07-02 11:14] LABS: Magnesium 1.6 mg/dL (1.5-2.4)
[2022-07-02 11:15] LABS: African American GFR (CKD) 128.5 (60.0-200.0); Anion Gap 8.6 mmol/L (10.00-18.00); BUN/Creat Ratio 5.48 Ratio (12.00-20.00); Blood Urea Nitrogen 4.5 mg/dL (9.0-27.0); Calcium 8.2 mg/dL (8.7-10.3); Carbon Dioxide 22.5 mmol/L (20.0-27.5); Non-African American GFR(CKD) 110.8 (60.0-200.0); Potassium 3.7 mmol/L (3.5-5.5)
--- NOTE | 2022-07-02 11:23 | P.DS ---
Providers Date of admission: 06/29/22 10:33 Expected date of discharge: 07/02/22 Attending physician: Tushar Felix MD Consults: 06/29/22 04:26 Consult Physician Urgent Consulting Provider: Boby Bloom Consult Reason/Comments: possible cholecystitis Do you want consulting provider notified?: Yes 06/29/22 05:47 Consult Physician Routine Consulting Provider: Amilcar Tinajero Consult Reason/Comments: bladder distention, bilateral hydro Do you want consulting provider notified?: Yes, Notify in am Primary care physician: Carlos Enrique Crowder Hospital Course: Assessment: Alcohol intoxication and chronic long-standing alcoholic Chronic cholecystitis Urinary retention and bilateral hydronephrosis and bladder distention Normocytic anemia, likely secondary to chronic alcohol abuse Chronic thrombocytopenia, secondary to chronic alcohol abuse Mild pancreatitis Alcoholic liver cirrhosis History of esophageal varices History of seizure disorder History of hypertension Presurgical clearance for laparoscopic cholecystectomy secondary to acute cholecystitis Hospital course: Patient is a very pleasant 41-year-old male alcohol abuse, alcoholic liver cirrhosis, hypertension, seizure disorder, and esophageal varices. Patient presented to the emergency department on 06/28/22 with a chief complaint of right upper quadrant/epigastric pain. He underwent full evaluation in the emergency department. CBC revealing normocytic anemia with hemoglobin of 11.4 and thrombocytopenia with platelet count of 127. Coagulation profile showing elevated PT of 15.7 and elevated INR of 1.6. BMP showing hyponatremia with sodium 131, hypochloremia with chloride of 95, BUN 3, creatinine 0.63. Liver profile revealing elevated total bili of 2.2 and elevated AST of 165. Troponin less than 0.012 and pro-BMP 79. Lipase was 423. CT abdomen and IV contrast showing a severely distended gallbladder with possible trace of pericholecystic fluid and mild bilateral hydronephrosis with a severely distended bladder. Gallbladder ultrasound completed in radiology report reviewed showing severely distended gallbladder with a few tiny stones and thickened wall to 6 mm. EKG completed showing normal sinus rhythm at 77 bpm with no noted T-wave or ST abnormalities upon personal review and interpretation. Patient was treated with Zosyn, Gen. surgery was consulted. Gen. surgery recommended removing gallbladder. Patient underwent lap cholecystectomy on 07/01 successfully without complication. He was tolerating a diet by 07/02. He was discharged home with follow-up with primary care physician, general surgery, highly recommended to stop drinking alcohol. I spent 40 minutes coordinating this discharge on 07/02 Gen: awake, alert HEENT: normocephalic, atraumatic, good hearing acuity, moist mucous membranes Resp: good air exchange, breathing comfortably with no accessory muscle use CVS: good distal perfusion x 4, GI: soft, NTTP, ND : no SPT, no CVAT, reis catheter not present MSK: no pitting edema, no clubbing Neuro: non-focal, moving all extremities Psych: cooperative, euthymic mood Patient Condition at Discharge: Good Plan - Discharge Summary Discharge Rx Participant: No New Discharge Prescriptions: Continue Spironolactone [Aldactone] 100 mg PO DAILY #30 tab Metoprolol Tartrate [Lopressor] 50 mg PO BID #60 tab Ondansetron Odt [Zofran ODT] 4 mg PO Q8HR PRN 3 Days #9 tab PRN Reason: Nausea traZODone HCL [Desyrel] 50 mg PO HS Sildenafil Citrate 50 mg PO DAILY PRN PRN Reason: e.d. Magnesium Oxide [Mag-Ox] 400 mg PO BID Lactulose 10 gm PO DAILY Pantoprazole [Protonix] 40 mg PO BID #60 tab Furosemide [Lasix] 40 mg PO BID Thiamine [Vitamin B-1] 100 mg PO DAILY Discharge Medication List Metoprolol Tartrate [Lopressor] 50 mg PO BID #60 tab 04/12/20 [Rx] Spironolactone [Aldactone] 100 mg PO DAILY #30 tab 04/12/20 [Rx] Lactulose 10 gm PO DAILY 04/24/21 [History] Magnesium Oxide [Mag-Ox] 400 mg PO BID 04/24/21 [History] Pantoprazole [Protonix] 40 mg PO BID #60 tab 06/01/21 [Rx] Ondansetron Odt [Zofran ODT] 4 mg PO Q8HR PRN 3 Days #9 tab 06/22/21 [Rx] Furosemide [Lasix] 40 mg PO BID 06/12/22 [History] Sildenafil Citrate 50 mg PO DAILY PRN 06/12/22 [History] Thiamine [Vitamin B-1] 100 mg PO DAILY 06/12/22 [History] traZODone HCL [Desyrel] 50 mg PO HS 06/12/22 [History] Follow up Appointment(s)/Referral(s): Carlos Enrique Crowder MD [Primary Care Provider] - 1-2 days Discharge/Stand Alone Forms: AA Meetings [facility], [facility], Outpatient Counseling, In Substance Abuse Facilities Discharge Disposition: HOME SELF-CARE
[2022-07-02] MEDS ORDERED: HYDROcodone/APAP 5-325MG 1 EACH TAB PO PRN (11:32)
[2022-07-02 12:21] LABS: Basophils # (A) 0.07 X 10*3/uL (0.00-0.10); Basophils % (A) 1.3 %; Eosinophils # (A) 0.31 X 10*3/uL (0.04-0.35); Eosinophils % (A) 5.7 %; HCT 34.6 % (39.6-50.0); Immature Grans, Automated 0.2 %; Lymphocytes # (A) 1.57 X 10*3/uL (0.90-5.00); Lymphocytes % (A) 28.9 %; MCH 28.5 pg (27.0-32.0); MCHC 31.8 g/dL (32.0-37.0); MCV 89.6 fL (80.0-97.0); Mean Platelet Volume 11.8 fL (9.5-12.2); Monocytes # (A) 0.65 X 10*3/uL (0.20-1.00); NRBC Per 100 WBC 0 /100 WBCS (0.0-0.0); Neutrophils # (A) 2.82 X 10*3/uL (1.80-7.70); Neutrophils % (A) 51.9 %; Platelet Count 85 X 10*3/uL (140-440); RBC 3.86 X 10*6/uL (4.40-5.60); RDW 17.7 % (11.5-14.5); WBC 5.43 X 10*3/uL (4.50-10.00)
[2022-07-02 12:25] VITALS: BP 116/78; PULSE 53; TEMP 98
--- NOTE | 2022-07-02 12:44 | P.PN ---
Subjective Progress Note Date: 07/02/22 CHIEF COMPLAINT: Abdominal pain HISTORY OF PRESENT ILLNESS: Patient is postop day 1 status post laparoscopic cholecystectomy. Patient reports his pain is controlled. He has been up and ambulating. He is having flatus. Denies any nausea or vomiting. Denies any difficulty urinating. Afebrile. Sodium 135 potassium 3.8 creatinine 0.68 total bilirubin 3.3 AST 79 ALT 31 alk phos 70 PHYSICAL EXAM: VITAL SIGNS: Reviewed. GENERAL: Well-developed in no acute distress. ABDOMEN: Soft. Nondistended. Incision sites clean dry and intact. Incision at the umbilicus no longer bleeding. NEUROLOGIC: Alert and oriented. Cranial nerves II through XII grossly intact. ASSESSMENT: 1. Acute on Chronic cholecystitis 2. Mild gallstone pancreatitis. Lipase normalized 3. Elevated total bilirubin and LFTs with history of daily ETOH use 4. Alcohol intoxication 5. History of alcohol liver cirrhosis PLAN: -Patient can be discharged surgical standpoint with outpatient follow up -Educated patient on alcohol cessation Physician Supervisor Cytology note has been reviewed by physician. Signing provider agrees with the documented findings, assessment, and plan of care. Objective - Vital Signs Vital signs: Vital Signs Temp 98.0 F 07/02/22 12:14 Pulse 53 L 07/02/22 12:14 Resp 18 07/02/22 12:14 BP 116/78 07/02/22 12:14 Pulse Ox 98 07/02/22 12:14 FiO2 Intake & Output 07/01/22 07/02/22 07/02/22 18:59 06:59 18:59 Intake Total 1120 444 Output Total 10 300 600 Balance 1110 144 -600 Intake: IV 1000 Oral 120 444 Output: Urine 300 600 Estimated Blood Loss 10 Other: Voiding Method Urinal Urinal Urinal # Voids 1 - Labs CBC & Chem 7: 07/02/22 06:05 07/02/22 08:43 Labs: Abnormal Lab Results - Last 24 Hours (Table) 07/02/22 07/02/22 07/02/22 Range/Units 06:05 06:05 08:43 RBC 3.86 L (4.40-5.60) X 10*6/uL Hgb 11.0 L (13.0-17.0) g/dL Hct 34.6 L (39.6-50.0) % MCHC 31.8 L (32.0-37.0) g/dL RDW 17.7 H (11.5-14.5) % Plt Count 85 L (140-440) X 10*3/uL Sodium 135 L (137-145) mmol/L Carbon Dioxide 21 L (22-30) mmol/L Anion Gap 8.60 L (10.00-18.00) mmol/L BUN 4.5 L 4 L (9.0-27.0) mg/dL BUN/Creatinine Ratio 5.48 L (12.00-20.00) Ratio Glucose 108 H (74-99) mg/dL Calcium 8.2 L 7.9 L (8.7-10.3) mg/dL Total Bilirubin 3.3 H (0.2-1.3) mg/dL AST 79 H (17-59) U/L Albumin 2.6 L (3.5-5.0) g/dL
== END 2022-07-02 15:11 | disposition home or self-care (01) | DRG 263 ==
LOC: EC 21:05 → 5NMEDONC 06-29 04:26 → OBSVTOIN 06-29 10:33
PROVIDERS: ADMIT Internal Medicine; ATTEND Internal Medicine
PROC: 0FT44ZZ Resection of Gallbladder, Percutaneous Endoscopic Approach (ICD-10-PCS; principal; 2022-07-01 11:45)
DX: K80.12 Calculus of gallbladder with acute and chronic cholecystitis without obstruction (principal); K85.10 Biliary acute pancreatitis without necrosis or infection; K70.30 Alcoholic cirrhosis of liver without ascites; F10.229 Alcohol dependence with intoxication, unspecified; K85.90 Acute pancreatitis without necrosis or infection, unspecified; G40.909 Epilepsy, unspecified, not intractable, without status epilepticus; L03.90 Cellulitis, unspecified; Y90.7 Blood alcohol level of 200-239 mg/100 ml; R79.1 Abnormal coagulation profile; I10 Essential (primary) hypertension; R07.89 Other chest pain; R22.42 Localized swelling, mass and lump, left lower limb; D64.89 Other specified anemias; D69.59 Other secondary thrombocytopenia; I85.10 Secondary esophageal varices without bleeding; R33.9 Retention of urine, unspecified; N13.30 Unspecified hydronephrosis; E87.1 Hypo-osmolality and hyponatremia; E87.8 Other disorders of electrolyte and fluid balance, not elsewhere classified; Z79.899 Other long term (current) drug therapy; Z86.14 Personal history of Methicillin resistant Staphylococcus aureus infection; Z71.41 Alcohol abuse counseling and surveillance of alcoholic
CPT/HCPCS: 36415; 71046; 74177; 76705; 80048; 80053; 80306; 80320; 81003; 83690; 83735; 83880; 84484; 85025; 85027; 85610; 85730; 88304; 93005; 96365; 96372; 96375; 99285

== ENCOUNTER 2022-09-10 20:18 | Observation (INO) | payer OTHER ==
[2022-09-10 22:30] LABS: Anisocytosis Slight; HCT 40.9 % (39.0-53.0); HGB 12.4 gm/dL (13.0-17.5); Hypochromasia Moderate; MCH 27.8 pg (25.0-35.0); MCHC 30.4 g/dL (31.0-37.0); MCV 91.4 fL (80.0-100.0); Mean Platelet Volume 9.5; RBC 4.48 m/uL (4.30-5.90); WBC 10.5 k/uL (3.8-10.6)
[2022-09-10 22:32] LABS: ALT 28 U/L (4-49); AST 53 U/L (17-59); African American GFR (CKD) >90 (>60 ml/min/1.73 sqM); Albumin 3.2 g/dL (3.5-5.0); Alkaline Phosphatase 98 U/L (38-126); Anion Gap 23 mmol/L; Blood Urea Nitrogen 7 mg/dL (9-20); Calcium 8.4 mg/dL (8.4-10.2); Chloride 104 mmol/L (98-107); Glucose 86 mg/dL (74-99); Magnesium 1.9 mg/dL (1.6-2.3); Non-African American GFR(CKD) >90 (>60 ml/min/1.73 sqM); Potassium 3.1 mmol/L (3.5-5.1); Sodium 135 mmol/L (137-145); Total Bilirubin 2.6 mg/dL (0.2-1.3)
[2022-09-10 22:36] LABS: Carbon Dioxide 8 mmol/L (22-30)
[2022-09-10 22:55] LABS: Band Neutrophils % 1 %; Eosinophils # (M) 0.53 k/uL (0-0.7); Lymphocytes # (M) 4.31 k/uL (1.0-4.8); Monocytes # (M) 1.47 k/uL (0-1.0); Myelocytes # (M) 0.11 k/uL (0); Myelocytes % 1 %; Neutrophils % (M) 40 %; Nucleated Red Blood Cells 0 /100 WBC (0-0); Platelet Count 90 k/uL (150-450); Total Cells Counted 200
[2022-09-10 22:56] LABS: Large Platelets Present; Polychromasia Present
[2022-09-10] MEDS ORDERED: LORazepam 2 MG/ML INJ IV STA (23:36)
[2022-09-10] MEDS ORDERED: KETOROLAC 15 MG/ML 1 ML VIAL IVP STA (23:37)
--- NOTE | 2022-09-10 23:46 | ED ---
Seizure HPI - General Chief Complaint: Seizure Stated Complaint: Seizure Time Seen by Provider: 09/10/22 22:01 Source: EMS Mode of arrival: EMS Limitations: no limitations - History of Present Illness Initial Comments: A 42-year-old male with past medical history for seizures not on any seizure medications presents to the ED with a chief complaint of seizure. Per patient was playing ticket when his vision got "fuzzy" and was having difficulties thinking. Went to the parking lot and felt as if he was going to have a seizure then had a seizure. Seized for approximately 2 minutes. Girlfriend Was able to help the patient down. Denies head injury at this time. Now notes pain of the left shoulder. Hen[place] like it dislocated and popped back in. Also notes numbness in his right hand, which is new. Denies chest pain shortness of breath. No other complaints - Related Data Home Medications Medication Instructions Recorded Confirmed Lactulose 10 gm PO DAILY 04/24/21 06/29/22 Magnesium Oxide [Mag-Ox] 400 mg PO BID 04/24/21 06/29/22 Furosemide [Lasix] 40 mg PO BID 06/12/22 06/29/22 Sildenafil Citrate 50 mg PO DAILY PRN 06/12/22 06/29/22 Thiamine [Vitamin B-1] 100 mg PO DAILY 06/12/22 06/29/22 traZODone HCL [Desyrel] 50 mg PO HS 06/12/22 06/29/22 Previous Rx's Medication Instructions Recorded Metoprolol Tartrate [Lopressor] 50 mg PO BID #60 tab 04/12/20 Spironolactone [Aldactone] 100 mg PO DAILY #30 tab 04/12/20 Pantoprazole [Protonix] 40 mg PO BID #60 tab 06/01/21 Ondansetron Odt [Zofran ODT] 4 mg PO Q8HR PRN 3 Days #9 tab 06/22/21 HYDROcodone/APAP 5-325MG [[place] 1 each PO Q4HR PRN #18 tab 07/02/22 5-325] Allergies Allergy/AdvReac Type Severity Reaction Status Date / Time No Known Allergies Allergy Verified 06/29/22 07:11 Review of Systems ROS Statement: Those systems with pertinent positive or pertinent negative responses have been documented in the HPI. ROS Other: All systems not noted in ROS Statement are negative. Past Medical History Past Medical History: Hypertension, Liver Disease, Seizure Disorder Additional Past Medical History / Comment(s): vomiting blood, hisotry of Alcohol abuse, cirrhosis, ascites, esophageal varicies,last seizure approx 2-3 mos ago History of Any Multi-Drug Resistant Organisms: MRSA Date of last positivie culture/infection: 01/15/21 MDRO Source:: MRSA LEG Past Surgical History: Orthopedic Surgery Additional Past Surgical History / Comment(s): rt hand, 2 lt shoulder, large volume paracentesis approx 4-5 times-last one done approx 1 1/1 yrs ago Past Anesthesia/Blood Transfusion Reactions: No Reported Reaction Past Psychological History: No Psychological Hx Reported Smoking Status: Never smoker Past Alcohol Use History: None Reported, Abuse, Daily, Heavy Past Drug Use History: None Reported - Past Family History Mother Family Medical History: Hypertension Additional Family Medical History / Comment(s): Mother is living. Father Family Medical History: CVA/TIA Additional Family Medical History / Comment(s): Father is living. General Exam Limitations: no limitations Head exam: Present: atraumatic Eye exam: Present: normal appearance, PERRL, EOMI ENT exam: Present: normal exam, mucous membranes moist Neck exam: Present: normal inspection Respiratory exam: Present: normal lung sounds bilaterally Cardiovascular Exam: Present: regular rate, normal rhythm GI/Abdominal exam: Present: soft Extremities exam: Present: normal inspection, other (Strength intact of bilateral upper extremities. Sensation intact over her right upper extremity. Sensation deficit in left upper extremity. Strength intact of right lower extremity. Strength deficit of left lower extremity.) Neurological exam: Present: alert (Finger to nose, rapid alternating hand movements, [id number] intact), oriented X3, CN II-XII intact Skin exam: Present: warm, dry Course Vital Signs 09/10/22 09/10/22 09/10/22 20:19 20:30 21:00 Temperature 97.6 F Pulse Rate 103 H 104 H 91 Respiratory 20 20 18 Rate Blood Pressure 129/71 129/71 102/62 O2 Sat by Pulse 96 96 95 Oximetry 09/10/22 09/10/22 09/10/22 21:30 22:00 23:00 Temperature Pulse Rate 80 73 61 Respiratory 20 21 21 Rate Blood Pressure 108/70 109/74 110/69 O2 Sat by Pulse 97 97 96 Oximetry 09/11/22 00:00 Temperature Pulse Rate 70 Respiratory 20 Rate Blood Pressure 129/85 O2 Sat by Pulse 98 Oximetry Medical Decision Making - Medical Decision Making Was pt. sent in by a medical professional or institution (NAGI Sylvester, [employer]ENTS INTER[employer], urgent c are, hospital, or [facility]...) When possible be specific @ -No Did you speak to anyone other than the patient for history (EMS, parent, family, police, friend...)? What history was obtained from this source @ -Spoke to patient's friend/girlfriend. For further details please see HPI. Did you review nursing and triage notes (agree or disagree)? Why? @ -I reviewed and agree with nursing and triage notes Were old charts reviewed (outside hosp., previous admission, EMS record, old EKG, old radiological studies, urgent care reports/EKG's, [facility] records)? Report findings @ -No old charts were reviewed Differential Diagnosis (chest pain, altered mental status, abdominal pain women, abdominal pain men, vaginal bleeding, weakness, fever, dyspnea, syncope, headache, dizziness, GI bleed, back pain, seizure, CVA, palpatations, mental health, musculoskeletal)? @ -Differential Seizure: Recurrent seizure disorder, febrile seizure, alcohol withdrawal, stimulants, meningitis, encephalitis, intercranial hemorrhage, intracranial tumor, stroke, eclampsia, thyrotoxicosis, hypocalcemia, hyponatremia, hypernatremia, h ypomagnesemia, psychogenic, this is not meant to be an all-inclusive list. EKG interpreted by me (3pts min.). @ -None X-rays interpreted by me (1pt min.). @ -X-ray showed left AC separation. CT interpreted by me (1pt min.). @ -CT brain C-spine show no acute findings. U/S interpreted by me (1pt. min.). @ -None done What testing was considered but not performed or refused? (CT, X-rays, U/S, labs)? Why? @ -None What meds were considered but not given or refused? Why? @ -None Did you discuss the management of the patient with other professionals (prof suzie i.e. NAGI Sylvester, [employer], lab, RT, psych nurse, nursing home social worker, back hoe operator, teacher, contact officer, telephonic nurse case manager)? Give summary @ -Spoke with Dr. Felix, who accepted admission Was smoking cessation discussed for >3mins.? @ -No Was critical care preformed (if so, how long)? @ -No Were there social determinants of health that impacted care today? How? (Homelessness, low income, unemployed, alcoholism, drug addiction, transportation, low edu. Level, literacy, decrease access to med. care, long term, rehab)? @ -No Was there de-escalation of care discussed even if they declined (Discuss DNR or withdrawal of care, Hospice)? DNR status @ -No What co-morbidities impacted this encounter? (DM, HTN, Smoking, COPD, CAD, Cancer, CVA, ARF, Chemo, Hep., AIDS, mental health diagnosis, sleep apnea, morbid obesity)? @ -None Was patient admitted / discharged? Hospital course, mention meds given and route, prescriptions, significant lab abnormalities, going to OR and other pertinent info. @ -Admission. Patient with seizures. Notes history of seizures not on any seizure medications likely due to prior seizures being attributed to alcohol withdrawal. Patient will be admitted to observation with consult to neurology. Discussed plan of care with patient who is in agreement. Undiagnosed new problem with uncertain prognosis? @ -No Drug Therapy requiring intensive monitoring for toxicity (Heparin, Nitro, Insulin, Cardizem)? @ -No Were any procedures done? @ -No Diagnosis/symptom? @ -Seizure Acute, or Chronic, or Acute on Chronic? @ -Acute on chronic Uncomplicated (without systemic symptoms) or Complicated (systemic symptoms)? @ -default Side effects of treatment? @ -No Exacerbation, Progression, or Severe Exacerbation? @ -No Poses a threat to life or bodily function? How? (Chest pain, [place], [place], pneumonia, PE, COPD, DKA, ARF, appy, cholecystitis, CVA, Diverticulitis, Homicidal, Suicidal, threat to staff... and all critical care pts) @ -No - Lab Data Result diagrams: 09/10/22 21:36 09/10/22 21:36 Lab Results 09/10/22 09/10/22 09/10/22 Range/Units 21:36 21:36 23:38 WBC 10.5 (3.8-10.6) k/uL RBC 4.48 (4.30-5.90) m/uL Hgb 12.4 L (13.0-17.5) gm/dL Hct 40.9 (39.0-53.0) % MCV 91.4 (80.0-100.0) fL MCH 27.8 (25.0-35.0) pg MCHC 30.4 L (31.0-37.0) g/dL RDW 16.0 H (11.5-15.5) % Plt Count 90 L (150-450) k/uL MPV 9.5 Neutrophils % (Manual) 40 % Band Neuts % (Manual) 1 % Lymphocytes % (Manual) 41 % Monocytes % (Manual) 14 % Eosinophils % (Manual) 5 % Myelocytes % 1 % Neutrophils # (Manual) 4.30 (1.3-7.7) k/uL Lymphocytes # (Manual) 4.31 (1.0-4.8) k/uL Monocytes # (Manual) 1.47 H (0-1.0) k/uL Eosinophils # (Manual) 0.53 (0-0.7) k/uL Myelocytes # (Manual) 0.11 H (0) k/uL Nucleated RBCs 0 (0-0) /100 WBC Manual Slide Review Performed Large Platelets Present Polychromasia Present Hypochromasia Moderate Anisocytosis Slight Sodium 135 L (137-145) mmol/L Potassium 3.1 L (3.5-5.1) mmol/L Chloride 104 (98-107) mmol/L Carbon Dioxide 8 L* (22-30) mmol/L Anion Gap 23 mmol/L BUN 7 L (9-20) mg/dL Creatinine 0.87 (0.66-1.25) mg/dL Est GFR (CKD-EPI)AfAm >90 (>60 ml/min/1.73 sqM) Est GFR (CKD-EPI)NonAf >90 (>60 ml/min/1.73 sqM) Glucose 86 (74-99) mg/dL Calcium 8.4 (8.4-10.2) mg/dL Phosphorus 4.4 (2.5-4.5) mg/dL Magnesium 1.9 2.0 (1.6-2.3) mg/dL Total Bilirubin 2.6 H (0.2-1.3) mg/dL AST 53 (17-59) U/L ALT 28 (4-49) U/L Alkaline Phosphatase 98 (38-126) U/L Total Protein 7.0 (6.3-8.2) g/dL Albumin 3.2 L (3.5-5.0) g/dL Disposition Clinical Impression: Seizure Disposition: ADMITTED IP TO THIS HOSP Referrals: Carlos Enrique Crowder MD [Primary Care Provider] - 1-2 days Time of Disposition: 01:56
[2022-09-11 00:23] LABS: Phosphorus 4.4 mg/dL (2.5-4.5)
--- NOTE | 2022-09-11 01:19 | XR ---
EXAM: XR Left Shoulder Complete, 2 or More Views CLINICAL HISTORY: ITS.REASON XR Reason: left shoulder pain TECHNIQUE: Two or more views of the left shoulder. COMPARISON: No relevant prior studies available. FINDINGS: The left AC joint appears by 1 cm. Intra-articular bodies are present. IMPRESSION: Correlate with left AC joint separation. There are intra-articular bodies likely from degenerative changes.
--- NOTE | 2022-09-11 01:29 | CT ---
EXAM: CT Head Without Intravenous Contrast CLINICAL HISTORY: ITS.REASON CT Reason: seizure TECHNIQUE: Axial computed tomography images of the head/brain without intravenous contrast. CTDI is 45.2 mGy and DLP is 1105.5 mGy-cm. This CT exam was performed using one or more of the following dose reduction techniques: automated exposure control, adjustment of the mA and/or kV according to patient size, and/or use of iterative reconstruction technique. COMPARISON: No relevant prior studies available. FINDINGS: Brain: No hemorrhage or mass effect. Ventricles: No hydrocephalus. Bones/joints: Unremarkable. Soft tissues: Unremarkable. Sinuses: No air fluid level. Mastoid air cells: Clear. IMPRESSION: No acute hemorrhage, hydrocephalus, or mass effect. EXAM: CT Cervical Spine Without Intravenous Contrast CLINICAL HISTORY: ITS.REASON CT Reason: seizure TECHNIQUE: Axial computed tomography images of the cervical spine without intravenous contrast. CTDI is 16.7 mGy and DLP is 512.2 mGy-cm. This CT exam was performed using one or more of the following dose reduction techniques: automated exposure control, adjustment of the mA and/or kV according to patient size, and/or use of iterative reconstruction technique. COMPARISON: No relevant prior studies available. FINDINGS: Vertebrae: No acute fracture. Discs/spinal canal/neural foramina: Minimal degenerative changes. Soft tissues: No prevertebral swelling. IMPRESSION: No acute fracture or subluxation.
[2022-09-11] MEDS ORDERED: NALOXONE 0.4 MG/ML 1 ML VIAL IV PRN (01:59)
[2022-09-11] MEDS ORDERED: ONDANSETRON 4 MG/2 ML VIAL IVP PRN (01:59)
[2022-09-11] MEDS ORDERED: HYDROmorphone 0.5 MG/0.5 ML SYRINGE IVP PRN (01:59)
[2022-09-11] MEDS ORDERED: IBUPROFEN 400 MG TAB PO PRN (01:59)
[2022-09-11] MEDS ORDERED: HYDROmorphone 1 MG/ML 1 ML SYRINGE IVP PRN (01:59)
[2022-09-11] MEDS ORDERED: LORazepam 2 MG/ML INJ IV PRN (02:00)
[2022-09-11] MEDS ORDERED: KETOROLAC 15 MG/ML 1 ML VIAL IVP PRN (02:01)
[2022-09-11 02:15] VITALS: RESP 16
[2022-09-11] MEDS ORDERED: POTASSIUM CHLORIDE ER 20 MEQ TAB.ER PO STA (02:21)
[2022-09-11 02:28] LABS: Mucus,Urine Rare /hpf; RBC,Urine <1 /hpf (0-5); WBC,Urine 1 /hpf (0-5)
[2022-09-11 02:33] LABS: Lactic Acid, Venous 1.2 mmol/L (0.7-2.0)
[2022-09-11 02:34] LABS: Alcohol <10 mg/dL
[2022-09-11 02:41] LABS: Amphetamine Screen,Urine Not Detected (NotDetected); Barbiturate Screen,Urine Not Detected (NotDetected); Benzodiazepines Screen,Urine Not Detected (NotDetected); Cocaine Screen,Urine Not Detected (NotDetected); Methadone Screen, Urine Not Detected (NotDetected); Opiate Screen,Urine Not Detected (NotDetected); Oxycodone Screen, Urine Not Detected (NotDetected); Phencyclidine Screen,Urine Not Detected (NotDetected); Tricyclic Antidepressant,Urine Not Detected (NotDetected); Urn Cannabinoid Scrn Not Detected (NotDetected)
[2022-09-11 02:56] LABS: Appearance,Urine CLEAR (Clear); Color,Urine YELLOW; Specific Gravity,Urine 1.018 (1.001-1.035)
[2022-09-11 02:57] LABS: Bilirubin,Urine Negative (Negative); Blood,Urine Negative (Negative); Glucose,Urine (UA) Negative (Negative); Ketones,Urine Negative (Negative); Leukocyte Esterase,Urine Negative (Negative); Nitrite,Urine Negative (Negative); PH, Urine 5.5 (5.0-8.0); Protein,Urine 1+ (Negative)
[2022-09-11] MEDS ORDERED: levETIRAcetam IV 1,000 MG in SODIUM CHLORIDE 0.9% 250 ML IVPB ONE (03:11)
[2022-09-11] MEDS ORDERED: levETIRAcetam IV 500 MG/5 ML VIAL IVP ONE (03:15)
[2022-09-11] MEDS: SODIUM CHLORIDE 0.9% 1,000 ML IV SCH ×3 (03:20→18:19)
--- NOTE | 2022-09-11 03:25 | P.HPIM ---
History of Present Illness H&P Date: 09/11/22 Chief Complaint: seizure 42 year old male with liver cirrhosis 2/2 h/o alcohol abuse, seizure disorder not currently on medications patient was grocery shopping , when suddenly had a seizure episode, tonic clonic , witnessed by his girlfriend , in the parking lot of [facility]. episode lasted 2 min, no tongue biting, no loss of bladder or bowel control, no head injury , as his GF noticed something wrong with the patient and immediately braced him before falling , and put him gently on the ground, he hurt his left shoulder during the episode. no head injury , but has superficial wound over his left great toe. denies any recent alcohol , or new medications, he has been sober for 2 months now. he is not sure why he is not on medications for seizure at this time, his most recent seizure has been more than a year ago. after the seizure he reports some headache, and left hand does not feel right denies any fever, chills , abd pain , nausa or vomiting, denies any changes in bowel or urinary habits he denies smoking, illicit drugs or alcohol review of systems Pertinent positives as noted in HPI. All other systems were reviewed and are negative Constitutional: No acute distress, conversant, pleasant Eyes: Anicteric sclerae, moist conjunctiva, Pupils equal round reactive to light ENMT: NC/AT Oropharynx clear, no erythema, or exudates Neck: Supple, no masses, or JVD No carotid bruits No thyromegaly Lungs: Clear to auscultation Clear to percussion Normal respiratory effort, no accessory muscle use Cardiovascular: Heart regular in rate and rhythm, No murmurs, gallops, or rubs No peripheral edema Abdominal: Soft Nontender, no guarding, rebound or rigidity Abdomen moving with respiration Normoactive bowel sounds No hepatomegaly, No splenomegaly No palpable mass No abdominal wall hernia noted Skin: small laceration lateral medial aspect of his left great toe Extremities: No digital cyanosis No clubbing Pedal pulses intact and symmetrical Radial pulses intact and symmetrical No calf tenderness Psychiatric: Alert and oriented to person, place and time Appropriate affect fair judgement Neuro Muscles Strength 5/5 in all 4 extremities Sensation to light touch grossly present throughout Cranial nerves II-XII grossly intact Lymphatics: no palpable cervical or supraclavicular lymph nodes Past Medical History Past Medical History: Hypertension, Liver Disease, Seizure Disorder Additional Past Medical History / Comment(s): vomiting blood, hisotry of Alcohol abuse, cirrhosis, ascites, esophageal varicies,last seizure approx 2-3 mos ago History of Any Multi-Drug Resistant Organisms: MRSA Date of last positivie culture/infection: 01/15/21 MDRO Source:: MRSA LEG Past Surgical History: Orthopedic Surgery Additional Past Surgical History / Comment(s): rt hand, 2 lt shoulder, large volume paracentesis approx 4-5 times-last one done approx 1 1/1 yrs ago Past Anesthesia/Blood Transfusion Reactions: No Reported Reaction Past Psychological History: No Psychological Hx Reported Additional Psychological History / Comment(s): Pt resides with a friend. He is on a low sodium fluid restriction diet. He is independent. Smoking Status: Never smoker Past Alcohol Use History: None Reported Additional Past Alcohol Use History / Comment(s): pt states that he was recently in rehab for alcohol abuse from 07/16-08/16 and hasn't drank since before then Past Drug Use History: None Reported - Past Family History Mother Family Medical History: Hypertension Additional Family Medical History / Comment(s): Mother is living. Father Family Medical History: CVA/TIA Additional Family Medical History / Comment(s): Father is living. Medications and Allergies Home Medications Medication Instructions Recorded Confirmed Type Metoprolol Tartrate [Lopressor] 50 mg PO BID #60 tab 04/12/20 06/29/22 Rx Spironolactone [Aldactone] 100 mg PO DAILY #30 tab 04/12/20 06/29/22 Rx Lactulose 10 gm PO DAILY 04/24/21 06/29/22 History Magnesium Oxide [Mag-Ox] 400 mg PO BID 04/24/21 06/29/22 History Pantoprazole [Protonix] 40 mg PO BID #60 tab 06/01/21 06/29/22 Rx Ondansetron Odt [Zofran ODT] 4 mg PO Q8HR PRN 3 Days #9 tab 06/22/21 06/29/22 Rx Furosemide [Lasix] 40 mg PO BID 06/12/22 06/29/22 History Sildenafil Citrate 50 mg PO DAILY PRN 06/12/22 06/29/22 History Thiamine [Vitamin B-1] 100 mg PO DAILY 06/12/22 06/29/22 History traZODone HCL [Desyrel] 50 mg PO HS 06/12/22 06/29/22 History HYDROcodone/APAP 5-325MG [[place] 1 each PO Q4HR PRN #18 tab 07/02/22 Rx 5-325] Allergies Allergy/AdvReac Type Severity Reaction Status Date / Time No Known Allergies Allergy Verified 06/29/22 07:11 Physical Exam Vitals: Vital Signs Temp Pulse Pulse Resp BP BP Pulse Ox 09/11/22 02:44 97.8 F 64 132/80 100 09/11/22 02:00 63 16 111/81 100 09/11/22 01:00 66 17 129/87 97 09/11/22 00:13 65 20 116/78 97 09/11/22 00:00 70 20 129/85 98 09/10/22 23:00 61 21 110/69 96 09/10/22 22:00 73 21 109/74 97 09/10/22 21:30 80 20 108/70 97 09/10/22 21:00 91 18 102/62 95 09/10/22 20:30 104 H 20 129/71 96 09/10/22 20:19 97.6 F 103 H 20 129/71 96 Intake and Output 09/10/22 09/10/22 09/11/22 14:59 22:59 06:59 Other: Weight 104.326 kg 104.326 kg Results CBC & Chem 7: 09/10/22 21:36 09/10/22 21:36 Labs: Abnormal Lab Results - Last 24 Hours (Table) 09/10/22 09/10/22 09/11/22 Range/Units 21:36 21:36 01:52 Hgb 12.4 L (13.0-17.5) gm/dL MCHC 30.4 L (31.0-37.0) g/dL RDW 16.0 H (11.5-15.5) % Plt Count 90 L (150-450) k/uL Monocytes # (Manual) 1.47 H (0-1.0) k/uL Myelocytes # (Manual) 0.11 H (0) k/uL Sodium 135 L (137-145) mmol/L Potassium 3.1 L (3.5-5.1) mmol/L Carbon Dioxide 8 L* (22-30) mmol/L BUN 7 L (9-20) mg/dL Total Bilirubin 2.6 H (0.2-1.3) mg/dL Albumin 3.2 L (3.5-5.0) g/dL Urine Protein 1+ H (Negative) Urine Mucus Rare H (None) /hpf Thrombosis Risk Factor Assmnt - Choose All That Apply Each Factor Represents 1 point: Age 41-60 years, Obesity (BMI >25) Thrombosis Risk Factor Assessment Total Risk Factor Score: 2 Thrombosis Risk Factor Assessment Level: Low Risk Assessment and Plan Assessment: 42 year old male coming in for an episode of breakthrough seizure, I discussed the case with ED doc, and I accepted the admission for close monitoring and neurology evaluation with anticipated length of stay < 2 midnights breakthrough seizure h/o seizure disorder and alcohol related seizures not currently on medications CT imaging of the head and cervical spine , no acute pathology blood work showed Anion gap metabolic acidosis , LA was checked 5 hours later found to be 1.2 renal function showing Na 135 , BUN 7 cr 0.87 mild hypokalemia with K 3.1 blood alcohol negative urine drug screen negative prolactin level was not checked immediately, still pending plan neuro checks seizure precautions load with keppra 1000 mg IVPB once then continue with keppra 500 mg po BID neurology consultation check EEG home meds not verified chronic conditions hypertension , contorlled , resume metoprolol liver cirrhosis resume lactulose full code DVT PPX mechanical
[2022-09-11] MEDS: PANTOPRAZOLE 40 MG TABLET PO SCH ×2 (06:41→18:19)
[2022-09-11] MEDS ORDERED: METOPROLOL TARTRATE 50 MG TAB PO SCH (09:00)
[2022-09-11 11:42] LABS: ALT 20 U/L (10-49); AST 35 U/L (14-35); Albumin 2.6 d/dL (3.8-4.9); Albumin/Globulin Ratio 0.93 Ratio (1.60-3.17); Alkaline Phosphatase 79 U/L (41-126); BUN/Creat Ratio 8.56 Ratio (12.00-20.00); Blood Urea Nitrogen 7.7 mg/dL (9.0-27.0); Calcium 8.3 mg/dL (8.7-10.3); Carbon Dioxide 22.7 mmol/L (21.6-31.8); Chloride 105 mmol/L (96-109); Globulin 2.8 d/dL (1.6-3.3); Glucose 73 mg/dL (70-110); Potassium 3.9 mmol/L (3.5-5.5); Sodium 137 mmol/L (135-145); Total Protein 5.4 d/dL (6.2-8.2)
[2022-09-11 11:51] LABS: Basophils # (A) 0.05 X 10*3/uL (0.00-0.10); Basophils % (A) 0.7 %; Elliptocytes 2+; Eosinophils # (A) 0.16 X 10*3/uL (0.04-0.35); Eosinophils % (A) 2.2 %; HCT 31.3 % (39.6-50.0); HGB 10.4 d/dL (12.0-15.0); Lymphocytes # (A) 2.45 X 10*3/uL (0.90-5.00); Lymphocytes % (A) 33.5 %; MCH 27.9 pg (27.0-32.0); MCHC 33.2 d/dL (32.0-37.0); MCV 83.9 FL (80.0-97.0); Mean Platelet Volume 11.9 FL (9.5-12.2); Monocytes # (A) 0.83 X 10*3/uL (0.20-1.00); Monocytes % (A) 11.3 %; NRBC Per 100 WBC 0 X 10*3/uL (0.00-0.01); Neutrophils # (A) 3.81 X 10*3/uL (1.80-7.70); Platelet Count 81 X 10*3/uL (140-440); RBC 3.73 X 10*6/uL (4.40-5.60); RDW 16.7 % (11.5-14.5); WBC 7.32 X 10*3/uL (4.50-10.00)
--- NOTE | 2022-09-11 13:15 | P.CNOR ---
History of Present Illness - [facility] Consult date: 09/11/22 Consult reason: joint pain (Left shoulder pain) History of present illness: Patient is a 42-year-old male presented to [facility] on 09/10/2022 for evaluation after having a witnessed tonic-clonic seizure. Patient was apparently at the grocery store when he seized in the parking lot, his was present to aid in getting patient to the ground. He was then brought to [facility] for further evaluation. Multiple imaging and lab tests were done. Patient did complain of shoulder pain, and x-rays were ordered. Our orthopedic team was consulted. Internal medicine is the admitting provider, neurology is also being consulted. Patient is a pertinent past medical history of multiple left shoulder surgeries along with cirrhosis of liver. Patient was evaluated at bedside today, he is resting comfortably. He is utilizing a basic arm sling at this time. He notes most discomfort on the superior and lateral aspect of the shoulder. 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 He notices most discomfort with getting the shoulders above his head with weight. He denies any elbow, forearm, hand or wrist pain. He denies any pain involving the bilateral lower extremities or right upper extremity. He denies any new onset cervical, thoracic and lumbar pain. Patient denies any numbness or tingling to the left upper extremity, right lower extremity or bilateral lower extremities. patient admits to at least 2 surgeries that he can remember from his left shoulder, both for arthroscopic. Patient states he dealt with multiple shoulder dislocations while playing hockey as a young adult. He states his most recent surgery on the left shoulder was about 20 years ago.he remembers being diagnosed with a collarbone fracture and acromioclavicular joint separation on the left- hand side. Review of Systems Constitutional: Reports as per HPI Past Medical History Past Medical History: Hypertension, Liver Disease, Seizure Disorder Additional Past Medical History / Comment(s): vomiting blood, hisotry of Alcohol abuse, cirrhosis, ascites, esophageal varicies,last seizure approx 2-3 mos ago History of Any Multi-Drug Resistant Organisms: MRSA Year Discovered:: 01/15/21 MDRO Source:: MRSA LEG Past Surgical History: Orthopedic Surgery Additional Past Surgical History / Comment(s): rt hand, 2 lt shoulder, large volume paracentesis approx 4-5 times-last one done approx 1 1/1 yrs ago Past Anesthesia/Blood Transfusion Reactions: No Reported Reaction Past Psychological History: No Psychological Hx Reported Additional Psychological History / Comment(s): Pt resides with a friend. He is on a low sodium fluid restriction diet. He is independent. Smoking Status: Never smoker Past Alcohol Use History: None Reported Additional Past Alcohol Use History / Comment(s): pt states that he was recently in rehab for alcohol abuse from 07/16-08/16 and hasn't drank since before then Past Drug Use History: None Reported - Past Family History Mother Family Medical History: Hypertension Additional Family Medical History / Comment(s): Mother is living. Father Family Medical History: CVA/TIA Additional Family Medical History / Comment(s): Father is living. Medications and Allergies Home Medications Medication Instructions Recorded Confirmed Type Metoprolol Tartrate [Lopressor] 50 mg PO BID #60 tab 04/12/20 09/11/22 Rx Spironolactone [Aldactone] 100 mg PO DAILY #30 tab 04/12/20 09/11/22 Rx Lactulose 10 gm PO DAILY 04/24/21 09/11/22 History Magnesium Oxide [Mag-Ox] 400 mg PO BID 04/24/21 09/11/22 History Pantoprazole [Protonix] 40 mg PO BID #60 tab 06/01/21 09/11/22 Rx Furosemide [Lasix] 40 mg PO BID 06/12/22 09/11/22 History Sildenafil Citrate 50 mg PO DAILY PRN 06/12/22 09/11/22 History Thiamine [Vitamin B-1] 100 mg PO DAILY 06/12/22 09/11/22 History traZODone HCL [Desyrel] 50 mg PO HS 06/12/22 09/11/22 History Escitalopram [Lexapro] 5 mg PO DAILY 09/11/22 09/11/22 History Allergies Allergy/AdvReac Type Severity Reaction Status Date / Time No Known Allergies Allergy Verified 09/11/22 07:22 Physical Examination Left upper extremity: No obvious open lesions, sores or areas of significant soft tissue swelling. Well-healed portal sites surrounding the anterior, lateral and posterior aspect of the shoulder. There is no excessive erythema present Patient demonstrates tenderness with palpation at the before meals joint, he a lso has some discomfort on the lateral acromion. Minimal tenderness with palpation along the glenohumeral joint line. He is nontender with palpation to the forearm, this concluded elbow, forearm, hand and wrist Active motion, he is able to forward elevate and abduct about 140, pain is reproduced after 90. External rotation of the shoulder does reproduce some discomfort, slight weakness noted. 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 No significant strength deficits are appreciated, he is slightly weaker with shoulder abduction and forward elevation. Positive Neer sign and Mera sign. Crossarm test also does reproduce discomfort at the acromioclavicular joint. Sensory exam to light touch testing extremity is intact Radial and ulnar pulses are 2+ Results - Labs Labs: Abnormal Lab Results - Last 24 Hours (Table) 09/10/22 09/10/22 09/11/22 Range/Units 21:36 21:36 01:52 RBC (4.40-5.60) X 10*6/uL Hgb 12.4 L (13.0-17.5) gm/dL Hct (39.6-50.0) % MCHC 30.4 L (31.0-37.0) g/dL RDW 16.0 H (11.5-15.5) % Plt Count 90 L (150-450) k/uL Monocytes # (Manual) 1.47 H (0-1.0) k/uL Myelocytes # (Manual) 0.11 H (0) k/uL Elliptocytes Sodium 135 L (137-145) mmol/L Potassium 3.1 L (3.5-5.1) mmol/L Carbon Dioxide 8 L* (22-30) mmol/L BUN 7 L (9-20) mg/dL BUN/Creatinine Ratio (12.00-20.00) Ratio Calcium (8.7-10.3) mg/dL Total Bilirubin 2.6 H (0.2-1.3) mg/dL Total Protein (6.2-8.2) d/dL Albumin 3.2 L (3.5-5.0) g/dL Albumin/Globulin Ratio (1.60-3.17) Ratio Prolactin (2.100-17.000) ng/mL Urine Protein 1+ H (Negative) Urine Mucus Rare H (None) /hpf 09/11/22 09/11/22 09/11/22 Range/Units 01:52 06:28 06:28 RBC 3.73 L (4.40-5.60) X 10*6/uL Hgb 10.4 L (13.0-17.5) gm/dL Hct 31.3 L (39.6-50.0) % MCHC (31.0-37.0) g/dL RDW 16.7 H (11.5-15.5) % Plt Count 81 L (150-450) k/uL Monocytes # (Manual) (0-1.0) k/uL Myelocytes # (Manual) (0) k/uL Elliptocytes 2+ A Sodium (137-145) mmol/L Potassium (3.5-5.1) mmol/L Carbon Dioxide (22-30) mmol/L BUN 7.7 L (9-20) mg/dL BUN/Creatinine Ratio 8.56 L (12.00-20.00) Ratio Calcium 8.3 L (8.7-10.3) mg/dL Total Bilirubin 2.0 H (0.2-1.3) mg/dL Total Protein 5.4 L (6.2-8.2) d/dL Albumin 2.6 L (3.5-5.0) g/dL Albumin/Globulin Ratio 0.93 L (1.60-3.17) Ratio Prolactin 19.300 H (2.100-17.000) ng/mL Urine Protein (Negative) Urine Mucus (None) /hpf H & H 09/10/22 09/11/22 Range/Units 21:36 06:28 Hgb 12.4 L 10.4 L (13.0-17.5) gm/dL Hct 40.9 31.3 L (39.0-53.0) % Result Diagrams: 09/11/22 06:28 09/11/22 06:28 - Diagnostic results Shoulder x-ray: report reviewed, image reviewed Assessment and Plan Assessment: Imaging: X-ray images and report reviewed of the left shoulder from 09/10/2022. Images demonstrate no acute fractures or dislocations. osseous changes are noted of the distal clavicle near the acromioclavicular joint. Evidence of acromio clavicular joint osteoarthritis noted with bone spur formation and loss of joint space. There are some sclerotic changes noted in the greater tuberosity Assessment: Left shoulder pain Left shoulder acromioclavicular joint osteoarthritis Left shoulder impingement syndrome, possible rotator cuff tear Previous left shoulder injuries, including dislocations, clavicle fracture in acromioclavicular joint separation Previous left shoulder surgeries 2 Recent tonic-clonic seizure Other medical comorbidities Plan: I was able to discuss the case, this to include physical physical exam findings and imaging studies might attending Dr. Zarate. No emergent orthopedic surgical intervention is recommended at this time Discussed with the patient today at bedside, taking in consideration his current symptoms, previous injuries and surgeries is likely multiple pathologies affecting the left shoulder. Discussed the high likelihood of an MRI in the outpatient setting to evaluate the internal structures more in depth. Follow-up information will be placed in the chart follow-up with Dr. Zarate in the coming weeks. Pain control, recommending the use of ice and avoiding excessive use and heavy lifting with the shoulder DVT prophylaxis per primary medical service Other medical specialty recommendations appreciated Discharge planning: Orthopedically patient is stable for follow-up in the outpatient setting, please contact our service there are any further questions regarding this patient Time with Patient: Less than 30
--- NOTE | 2022-09-11 15:27 | P.CNNES ---
History of Present Illness Consult date: 09/11/22 Requesting physician: Rajat Marks Reason for Consult: Seizure History of Present Illness: Patient is a 42-year-old male with history of seizure disorder came to the hospital by ambulance yesterday at 8:18 PM for breakthrough seizure. Patient has history of seizures, which has been related to alcoholism, but also has some seizures, which he claims has been unrelated to alcoholism as well. Patient has been sober for last 60+ days. Yesterday he went from grocery shopping with his friend. Inside the store, he with his friend, and he went to the deli section. While he was in the deli, he suddenly started having visual disturbance, when everything around was moving, and he felt "stool all over the place". He felt confusion, had a feeling "where do I go, what I am looking at". He was able to lean against some counter, and his friend came over, and he asked her to get him into the car. She wanted to return some item, and while he was waiting, he felt weird, something wasn't right. While they were going to the car so he can sit down, but he did not make it, and he suddenly clenched very hard on the cart and started going down. His face was twitching and his friend assisted him down on the floor. And she rolled him on to the side. He had a seizure. He did not bite his tongue, or loss control of urine. EMS was called. As per EMS flow sheet, when they arrived on the scene, patient was in the right lateral position on the ground accompanied by family, in distress and he does not make eye contact upon greeting. Patient was alert and oriented 1 to person only. Denied any pain. Patient's family mentioned that he had a tonic clonic seizure activity lasting approximately 3-5 minutes. Patient does have history of seizure with his last seizure 1 year prior, currently not prescribed any seizure medication. No fever, chills or any recent traumatic injuries no weakness or dizziness or nausea vomiting. Patient was post ictal. Patient was started on IV fluids, Zofran was given. By the time patient arrived to the hospital, he was alert and oriented 4 although and lethargic, with no pain. Patient's vitals showed blood pressure 143/80, heart rate 122, respiration 20, saturation 95%, blood glucose 83. Patient's CBC is normal, sodium 135 potassium 3.1, carbon dioxide 8, normal renal and hepatic panel. UA negative, urine drug screen and blood alcohol level negative. CT head showed no acute process. CT of the cervical spine showed no fracture or subluxation. Shoulder x-ray revealed correlate with left before meals joint separation. There are intra-articular bodies likely from degenerative changes. Patient had an MRI of the brain with and without contrast on 06/28/2021, which was normal. Patient has seizure disorder for last 2-3 years. He has about and seizures in his lifetime. 50% of them were related to alcohol withdrawal, and 50% of the seizures he believes were completely unrelated to the alcoholism. At present he has been completely sober for last 2 months. He has very long-standing history of heavy alcoholism. He started drinking since age 21 years. In early 20s he would particularly during summertime. However later he started drinking 6 beers a night, which went up to 11:15 pack beer per night. About 1-2 days after he wants to quit alcohol, he would've a seizure, which were not as intense. However sometimes when he was sober for some time and had breakthrough seizure, those were more intense. He remembers with 1 seizure, he was doing the laundry, when he grabbed the lid of the soap with his one hand, which suddenly became st iff, and grabbed the lid very strong. 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 With another seizure, he was sitting in the kitchen chair, on the phone, when his arm started shaking uncontrollably and had a full blown seizure. He states the last seizure was less than 6 months ago. Patient has never been placed on seizure medication, as it was believed that his seizures are alcohol related. Patient denies any tobacco use or drugs. He does have hypertension, denies diabetes. Home medications include spironolactone, metoprolol 50 minutes twice a day, lactulose, Protonix, trazodone 50 mg, Lasix 40 mg twice a day, thiamine and Lexapro 5 mg. Review of Systems Constitutional: Denies chills, Denies fever Eyes: left blurred vision, left pain, denies diplopia, denies loss of vision Ears: bilateral: decreased hearing, deny: tinnitus Ears, nose, mouth and throat: Reports headache (for 4 days), Denies sore throat Cardiovascular: Reports chest pain (yesterday), Denies shortness of breath Respiratory: Denies cough Gastrointestinal: Reports vomiting (in ambulance), Denies abdominal pain, Denies diarrhea, Denies nausea Genitourinary: Denies dysuria, Denies incontinence Musculoskeletal: Reports neck pain, Denies low back pain, Denies myalgias Musculoskeletal: left: shoulder pain Integumentary: Denies pruritus, Denies rash Neurological: Reports as per HPI Psychiatric: Denies anxiety, Denies depression Endocrine: Reports fatigue, Denies weight change Hematologic/Lymphatic: Reports easy bleeding, Reports easy bruising Past Medical History Past Medical History: Hypertension, Liver Disease, Seizure Disorder Additional Past Medical History / Comment(s): vomiting blood, hisotry of Alcohol abuse, cirrhosis, ascites, esophageal varicies,last seizure approx 2-3 mos ago History of Any Multi-Drug Resistant Organisms: MRSA Date of last positivie culture/infection: 01/15/21 MDRO Source:: MRSA LEG Past Surgical History: Orthopedic Surgery Additional Past Surgical History / Comment(s): rt hand, 2 lt shoulder, large volume paracentesis approx 4-5 times-last one done approx 1 1/1 yrs ago Past Anesthesia/Blood Transfusion Reactions: No Reported Reaction Past Psychological History: No Psychological Hx Reported Additional Psychological History / Comment(s): Pt resides with a friend. He is on a low sodium fluid restriction diet. He is independent. Smoking Status: Never smoker Past Alcohol Use History: None Reported Additional Past Alcohol Use History / Comment(s): pt states that he was recently in rehab for alcohol abuse from 07/16-08/16 and hasn't drank since before then Past Drug Use History: None Reported - Past Family History Mother Family Medical History: Hypertension Additional Family Medical History / Comment(s): Mother is living. Father Family Medical History: CVA/TIA Additional Family Medical History / Comment(s): Father is living. Medications and Allergies Home Medications Medication Instructions Recorded Confirmed Type Metoprolol Tartrate [Lopressor] 50 mg PO BID #60 tab 04/12/20 09/11/22 Rx Spironolactone [Aldactone] 100 mg PO DAILY #30 tab 04/12/20 09/11/22 Rx Lactulose 10 gm PO DAILY 04/24/21 09/11/22 History Magnesium Oxide [Mag-Ox] 400 mg PO BID 04/24/21 09/11/22 History Pantoprazole [Protonix] 40 mg PO BID #60 tab 06/01/21 09/11/22 Rx Furosemide [Lasix] 40 mg PO BID 06/12/22 09/11/22 History Sildenafil Citrate 50 mg PO DAILY PRN 06/12/22 09/11/22 History Thiamine [Vitamin B-1] 100 mg PO DAILY 06/12/22 09/11/22 History traZODone HCL [Desyrel] 50 mg PO HS 06/12/22 09/11/22 History Escitalopram [Lexapro] 5 mg PO DAILY 09/11/22 09/11/22 History Ibuprofen [Motrin] 400 mg PO Q6HR PRN tab 09/11/22 Rx levETIRAcetam [Keppra] 500 mg PO Q12HR #60 tab 09/11/22 Rx Allergies Allergy/AdvReac Type Severity Reaction Status Date / Time No Known Allergies Allergy Verified 09/11/22 07: Physical Examination - Vital Signs Vital Signs: Vital Signs Temp Pulse Pulse Resp BP BP Pulse Ox 09/11/22 09:28 100 09/11/22 07:00 97.7 F 59 L 16 136/74 100 09/11/22 02:44 97.8 F 64 132/80 100 09/11/22 02:00 63 16 111/81 100 09/11/22 01:00 66 17 129/87 97 09/11/22 00:13 65 20 116/78 97 09/11/22 00:00 70 20 129/85 98 09/10/22 23:00 61 21 110/69 96 09/10/22 22:00 73 21 109/74 97 09/10/22 21:30 80 20 108/70 97 09/10/22 21:00 91 18 102/62 95 09/10/22 20:30 104 H 20 129/71 96 09/10/22 20:19 97.6 F 103 H 20 129/71 96 Intake and Output 09/10/22 09/11/22 09/11/22 22:59 06:59 14:59 Intake Total 118 Balance 118 Intake: Oral 118 Other: # Voids 1 Weight 104.326 kg 104.326 kg Patient is a middle aged male, in no acute distress. Patient is alert awake oriented to time place and person. Speech and language functions are normal. Patient can name and repeat very well. No aphasia or dysarthria. Attention, concentration and fund of knowledge is adequate. On cranial nerve examination, pupils are equal, round and reacting to light. His visual elliott examination is somewhat inconsistent. His visual elliott revealed left hemianopia, but only with the left eye. When his right eye is examined, the visual elliott are normal in all 4 quadrants. When both eyes are examined together, he has left hemianopia. Extraocular muscles are intact with no nystagmus. Face is symmetric, tongue protrudes to the midline. Palatal elevation and sensation normal, hearing and shoulder shrug normal, facial sensation normal. Patient has possible mild tongue bite redd on the left side of the tongue, just proximal to the tip of tongue On muscle strength testing, there is no pronator drift and the strength is normal in arms and legs distally and proximally. His left arm is in a sling because of recent trauma to the shoulder from seizure. Deep tendon reflexes are symmetric 2+ all over and plantars downgoing bilaterally. Sensory to touch is equal with no neglect on double simultaneous stimulation. Patient has neuropathy in the feet, with decreased sensation from toes up to mid calves bilaterally. Cerebellar function showed no ataxia for [id number] testing. No dysdiadochokinesia. No ataxia for [id number] testing on either side. Tone and bulk of muscles normal. Gait deferred.. On general examination, there is no carotid bruit or murmur, S1-S2 audible. Chest is clear on consultation. Abdomen is soft nontender. No organomegaly, bowel sounds present. Peripheral pulses are present. No edema. Results - Laboratory Findings CBC and BMP: 09/11/22 06:28 09/11/22 06:28 Abnormal Lab Findings: Abnormal Labs 09/10/22 09/10/22 09/11/22 21:36 21:36 01:52 Hgb 12.4 L MCHC 30.4 L RDW 16.0 H Plt Count 90 L Monocytes # (Manual) 1.47 H Myelocytes # (Manual) 0.11 H Sodium 135 L Potassium 3.1 L Carbon Dioxide 8 L* BUN 7 L Total Bilirubin 2.6 H Albumin 3.2 L Urine Protein 1+ H Urine Mucus Rare H Assessment and Plan Assessment: * Seizure disorder, came with breakthrough seizure. Patient's seizures in the past were felt to be related to alcoholism, but at present patient is completely sober for last 60+ days. Therefore current seizure likely not related to alcoholism. * New onset visual field disturbance including left eye, with left eye pressure, unclear etiology. * History of alcoholism * Hepatic cirrhosis, due to above * Left shoulder acromioclavicular joint arthritis, possible left rotator cuff tear * Hypertension Plan: * EEG has been performed, we will review the results. * MRI of the orbits with and without contrast to evaluate for cause of left lateral visual field deficit and also left eye pain/pressure. * Agree with starting Keppra empirically for seizures prophylaxis. Patient's current seizure is unprovoked, not related to alcoholism or withdrawal. Patient has received 1 g of Keppra last night, and now started on 500 mg twice a day. * Patient is aware of [place] state law of no driving unless seizure free for 6 month, climbing ladders, operating dangerous machinery or unsupervised swi mming. * Neurology will follow. Thank you for the consult. Addendum: EEG was normal. No epileptiform activity seen. Slightly excessive low voltage fast frequency beta suggest medication effect. MRI of the orbits was normal. Neurologically clear for discharge on Keppra 500 mg twice a day. Patient recommended to follow up with an disbursing officer.
[2022-09-11 16:53] VITALS: BP 119/74; PULSE 51; TEMP 97.4
[2022-09-11] MEDS ORDERED: levETIRAcetam 500 MG TAB PO SCH (18:00)
--- NOTE | 2022-09-11 18:34 | MR ---
EXAMINATION TYPE: MR orbits wo/w con DATE OF EXAM: 09/11/2022 COMPARISON: CT brain 09/11/2022 HISTORY: 42-year-old male Left eye pressure, partial vision loss, Technique: Multiplanar, multisequence images coned down onto the orbits before and after administrati on 10.5 mL intravenous Gadavist gadolinium contrast. FINDINGS: The ventricles are of normal caliber. The optic nerves are symmetrical bilaterally. There is no enlargement of extraocular muscles of orbits. Retrobulbar intra or extraconal mass is not seen. Preseptal or post septal orbital abnormality is not detected. Sella and cavernous sinuses appear normal. The adjacent Meckel's caves appear normal. Midline structures and craniocervical junction appear normal. There is slight leftward nasal septal deviation. Only trace mucosal thickening in the ethmoid air allie ls. Post contrast images demonstrate no evidence of pathologic enhancement in the orbit or visualized int racranial cavity. IMPRESSION: No specific abnormality on MRI of the orbits.
--- NOTE | 2022-09-11 20:23 | P.DS ---
Providers Date of admission: 09/11/22 01:59 Expected date of discharge: 09/11/22 Attending physician: Tushar Felix MD Consults: 09/11/22 02:04 Consult Physician Urgent Consulting Provider: Hosea Mendoza Consult Reason/Comments: Seizure Do you want consulting provider notified?: Yes Consult Physician Urgent Consulting Provider: Hosea Mendoza Consult Reason/Comments: seizure, possible seizure disorder hx Do you want consulting provider notified?: Yes 09/11/22 03:27 Consult Physician Routine Consulting Provider: Dakota Zarate Consult Reason/Comments: left shoulder pain Do you want consulting provider notified?: Yes, Notify in am Primary care physician: Carlos Enrique [facility] Course: Breakthrough Seizure Alcohol Abuse HTN Liver Cirrhosis 42 year old male with liver cirrhosis 2/2 h/o alcohol abuse, seizure disorder not currently on medications presented for seizure. In the ER, patient was afebrile, 129/70, HR 100s, 97% on room air. CBC had mild anemia to 12.1. BMP showed acidosis to bicarb of 8. Prolactin was 19. Shoulder Xray showed left AC joint separation. CT Head/Neck showed no acute pathology. Case was dsicussed with the ER and patient was admitted for further management of seizures. Pt seen in consultation with Neurology and Orthopedic Surgery. Neurology recommended MRI of the orbits. MRI demonstrated no major abnormalities. Pt was cleared for discharge from their perspective with order for Keppra. Neurology f/u was recommended. Ortho saw the patient and recommended he maintain sling for shoulder and follow up in their office to arrange outpatient MRI of the shoulder for further management recommendations. He was discharged home with sling and with prescription for motrin 600mg q6h PRN. Gen: awake, alert HEENT: normocephalic, atraumatic, good hearing acuity, moist mucous membranes Resp: good air exchange, breathing comfortably with no accessory muscle use CVS: good distal perfusion x 4, GI: soft, NTTP, ND : no SPT, no CVAT, reis catheter not present MSK: no pitting edema, no clubbing Neuro: non-focal, moving all extremities Psych: cooperative, euthymic mood Patient Condition at Discharge: Good Plan - Discharge Summary New Discharge Prescriptions: New levETIRAcetam [Keppra] 500 mg PO Q12HR #60 tab Ibuprofen [Motrin] 400 mg PO Q6HR PRN tab PRN Reason: Mild Pain Or Fever > 100.5 Continue Spironolactone [Aldactone] 100 mg PO DAILY #30 tab Metoprolol Tartrate [Lopressor] 50 mg PO BID #60 tab traZODone HCL [Desyrel] 50 mg PO HS Sildenafil Citrate 50 mg PO DAILY PRN PRN Reason: e.d. Escitalopram [Lexapro] 5 mg PO DAILY Magnesium Oxide [Mag-Ox] 400 mg PO BID Lactulose 10 gm PO DAILY Pantoprazole [Protonix] 40 mg PO BID #60 tab Furosemide [Lasix] 40 mg PO BID Thiamine [Vitamin B-1] 100 mg PO DAILY Discharge Medication List Metoprolol Tartrate [Lopressor] 50 mg PO BID #60 tab 04/12/20 [Rx] Spironolactone [Aldactone] 100 mg PO DAILY #30 tab 04/12/20 [Rx] Lactulose 10 gm PO DAILY 04/24/21 [History] Magnesium Oxide [Mag-Ox] 400 mg PO BID 04/24/21 [History] Pantoprazole [Protonix] 40 mg PO BID #60 tab 06/01/21 [Rx] Furosemide [Lasix] 40 mg PO BID 06/12/22 [History] Sildenafil Citrate 50 mg PO DAILY PRN 06/12/22 [History] Thiamine [Vitamin B-1] 100 mg PO DAILY 06/12/22 [History] traZODone HCL [Desyrel] 50 mg PO HS 06/12/22 [History] Escitalopram [Lexapro] 5 mg PO DAILY 09/11/22 [History] Ibuprofen [Motrin] 400 mg PO Q6HR PRN tab 09/11/22 [Rx] levETIRAcetam [Keppra] 500 mg PO Q12HR #60 tab 09/11/22 [Rx] Follow up Appointment(s)/Referral(s): Carlos Enrique Crowder MD [Primary Care Provider] - 1-2 days Dakota Zarate DO [Doctor of Osteopathic Medicine] - 1 Week Diann Lowery MD [REFERRING] - 1 Week Patient Instructions/Handouts: Seizure/Epilepsy Discharge Instructions & Follow-Up, New-Onset Seizure in Adults (DC) Activity/Diet/Wound Care/Special Instructions: Activity: No driving for 6 months, must be seizure free for 6 months per [place] law. DO not swim, use ladders, or heavy equipment until seen by outpatient neurologist Diet: Regular Special Instructions: Left Shoulder: use of ice and avoiding excessive use and heavy lifting with the shoulder Abstain from alcohol Discharge Disposition: HOME SELF-CARE
[2022-09-11] MEDS ORDERED: traZODone HCL 50 MG TAB PO SCH (21:00)
--- NOTE | 2022-09-12 02:41 | EEG ---
ELECTROENCEPHALOGRAM REPORT PREAMBLE: This is a 42-year-old male with seizure disorder. EEG FINDINGS: This is a 21-channel digital EEG recorded with video component, utilizing 10/20 international system with referential and bipolar montages. Background consists of predominantly low amplitude fast frequency beta activity seen in bihemispheric region. Infrequent 9 hertz alpha activity was seen in the posterior head region, which seems to be slightly reactive to eye opening and closing. Photic driving response was seen with some flash frequencies. Drowsiness was seen with appearance of vertex waves. Very brief stage 2 sleep was seen with the presence of sporadic sleep spindles. Deeper stages of sleep were not seen. No focal or generalized epileptiform activity was seen. EKG channel showed no obvious arrhythmia. IMPRESSION: This is essentially a normal EEG during wakefulness, drowsiness, and stage 2 sleep. No focal, lateralized, or epileptiform activity was seen. The presence of excessive amount of low-voltage fast frequency beta activity suggests benzodiazepine effect. MMODL / IJN: [id number] / MTDD
== END 2022-09-11 19:28 | disposition home or self-care (01) ==
LOC: EC 20:18 → 6NMEDSUR 09-11 01:59
PROVIDERS: ADMIT Internal Medicine; ATTEND Internal Medicine
DX: G40.909 Epilepsy, unspecified, not intractable, without status epilepticus (principal); I10 Essential (primary) hypertension; K70.30 Alcoholic cirrhosis of liver without ascites; S43.102A Unspecified dislocation of left acromioclavicular joint, initial encounter; M19.011 Primary osteoarthritis, right shoulder; M75.42 Impingement syndrome of left shoulder; Z86.14 Personal history of Methicillin resistant Staphylococcus aureus infection; Z98.890 Other specified postprocedural states; Z82.49 Family history of ischemic heart disease and other diseases of the circulatory system; Z82.3 Family history of stroke; Z79.899 Other long term (current) drug therapy; Z87.19 Personal history of other diseases of the digestive system
CPT/HCPCS: 96375 ×2; 96374; 99285; 36415; 94760; 95816; 80053 ×2; 82140; 83605; 83735 ×2; 84100; 85025 ×2; 81001; 84146; 80306; 73030; 72125; 70450; 70543; G0378; G0480; J2060; J1170; J1953; J1885; A9585; 80320; 93005

== ENCOUNTER 2022-09-12 16:22 | Inpatient (IN) | payer OTHER ==
[2022-09-12] MEDS ORDERED: SODIUM CHLORIDE 0.9% 1,000 ML IV ONE (16:37)
[2022-09-12 17:02] LABS: Anisocytosis Slight; Basophils % (A) 0 %; Eosinophils # (A) 0.3 k/uL (0-0.7); Eosinophils % (A) 5 %; HCT 37.2 % (39.0-53.0); HGB 11.9 gm/dL (13.0-17.5); Lymphocytes # (A) 2.3 k/uL (1.0-4.8); Lymphocytes % (A) 39 %; MCH 28.4 pg (25.0-35.0); MCV 88.7 fL (80.0-100.0); Mean Platelet Volume 9.2; Monocytes # (A) 0.5 k/uL (0-1.0); Monocytes % (A) 9 %; Neutrophils # (A) 2.7 k/uL (1.3-7.7); Neutrophils % (A) 45 %; Platelet Count 77 k/uL (150-450); RDW 16.2 % (11.5-15.5); WBC 5.9 k/uL (3.8-10.6)
[2022-09-12 17:15] LABS: ALT 25 U/L (4-49); AST 48 U/L (17-59); African American GFR (CKD) >90 (>60 ml/min/1.73 sqM); Albumin 2.8 g/dL (3.5-5.0); Alcohol <10 mg/dL; Alkaline Phosphatase 109 U/L (38-126); Anion Gap 10 mmol/L; Blood Urea Nitrogen 9 mg/dL (9-20); Calcium 8.7 mg/dL (8.4-10.2); Carbon Dioxide 21 mmol/L (22-30); Chloride 108 mmol/L (98-107); Glucose 86 mg/dL (74-99); Lipase 392 U/L (23-300); Magnesium 1.6 mg/dL (1.6-2.3); Non-African American GFR(CKD) >90 (>60 ml/min/1.73 sqM); Potassium 3.8 mmol/L (3.5-5.1); Sodium 139 mmol/L (137-145); Total Bilirubin 1.9 mg/dL (0.2-1.3); Total Protein 6.6 g/dL (6.3-8.2)
[2022-09-12] MEDS ORDERED: NALOXONE 0.4 MG/ML 1 ML VIAL IV PRN (17:48)
--- NOTE | 2022-09-12 17:52 | ED ---
General Adult HPI - General Chief complaint: Seizure Stated complaint: Seizure Time Seen by Provider: 09/12/22 16:25 Source: patient, EMS Mode of arrival: EMS Limitations: no limitations - History of Present Illness Initial comments: This is a 42-year-old male with a past medical history including previous alcoholism with his last drink being in July after rehabilitation, seizure disorder presents emergency department via EMS after a witnessed grand mal seizure. The patient reported that he does not remember what happened earlier today but EMS did state that the patient called EMS himself after he was having a seizure. The patient does not remember calling EMS however EMS did state that the patient is seizure on arrival. The patient was discharged from the hospital yesterday for previous seizures. The patient himself stated that he thought he was in the hospital make ago but he was she discharged yesterday. The patient did not remember who came to the house to check on him but he did state that he had some he come over to make sure he took his medications. The patient denied any other acute pain or complaints at this time and was able to answer all questions appropriately but was concerned about why he was having seizures st ill. The patient was not any acute distress however. - Related Data Home Medications Medication Instructions Recorded Confirmed Lactulose 10 gm PO DAILY 04/24/21 09/11/22 Magnesium Oxide [Mag-Ox] 400 mg PO BID 04/24/21 09/11/22 Furosemide [Lasix] 40 mg PO BID 06/12/22 09/11/22 Sildenafil Citrate 50 mg PO DAILY PRN 06/12/22 09/11/22 Thiamine [Vitamin B-1] 100 mg PO DAILY 06/12/22 09/11/22 traZODone HCL [Desyrel] 50 mg PO HS 06/12/22 09/11/22 Escitalopram [Lexapro] 5 mg PO DAILY 09/11/22 09/11/22 Previous Rx's Medication Instructions Recorded Metoprolol Tartrate [Lopressor] 50 mg PO BID #60 tab 04/12/20 Spironolactone [Aldactone] 100 mg PO DAILY #30 tab 04/12/20 Pantoprazole [Protonix] 40 mg PO BID #60 tab 06/01/21 Ibuprofen [Motrin] 400 mg PO Q6HR PRN tab 09/11/22 levETIRAcetam [Keppra] 500 mg PO Q12HR #60 tab 09/11/22 Allergies Allergy/AdvReac Type Severity Reaction Status Date / Time No Known Allergies Allergy Verified 09/12/22 16:42 Review of Systems ROS Statement: Those systems with pertinent positive or pertinent negative responses have been documented in the HPI. ROS Other: All systems not noted in ROS Statement are negative. Past Medical History Past Medical History: Hypertension, Liver Disease, Seizure Disorder Additional Past Medical History / Comment(s): vomiting blood, hisotry of Alcohol abuse, cirrhosis, ascites, esophageal varicies,last seizure approx 2-3 mos ago History of Any Multi-Drug Resistant Organisms: MRSA Date of last positivie culture/infection: 01/15/21 MDRO Source:: MRSA LEG Past Surgical History: Cholecystectomy, Orthopedic Surgery Additional Past Surgical History / Comment(s): rt hand, 2 lt shoulder, large volume paracentesis approx 4-5 times-last one done approx 1 1/1 yrs ago Past Anesthesia/Blood Transfusion Reactions: No Reported Reaction Past Psychological History: No Psychological Hx Reported Smoking Status: Never smoker Past Alcohol Use History: Abuse, Daily, Heavy Past Drug Use History: None Reported - Past Family History Mother Family Medical History: Hypertension Additional Family Medical History / Comment(s): Mother is living. Father Family Medical History: CVA/TIA Additional Family Medical History / Comment(s): Father is living. General Exam Limitations: no limitations General appearance: alert, in no apparent distress Head exam: Present: atraumatic, normocephalic, normal inspection Eye exam: Present: normal appearance, PERRL Pupils: Present: normal accommodation ENT exam: Present: normal exam, normal oropharynx, mucous membranes moist Neck exam: Present: normal inspection, full ROM Respiratory exam: Present: normal lung sounds bilaterally Cardiovascular Exam: Present: regular rate, normal rhythm, normal heart sounds GI/Abdominal exam: Present: soft, normal bowel sounds Extremities exam: Present: normal inspection, full ROM Back exam: Present: normal inspection, full ROM Neurological exam: Present: alert, oriented X3, CN II-XII intact Psychiatric exam: Present: normal affect, normal mood Skin exam: Present: warm, dry Course Vital Signs 09/12/22 09/12/22 09/12/22 16:31 17:00 17:30 Temperature 98.0 F Pulse Rate 75 70 65 Respiratory 22 18 20 Rate Blood Pressure 126/74 123/80 118/73 O2 Sat by Pulse 99 100 100 Oximetry 09/12/22 18:00 Temperature Pulse Rate 61 Respiratory 20 Rate Blood Pressure 102/63 O2 Sat by Pulse 97 Oximetry EKG Findings - EKG Comments: EKG Findings:: An EKG was obtained and was interpreted by myself showing a rate of 71, MN interval 148, QRS duration of 97 and QTC of 440. This EKG showed a normal sinus rhythm with no ST segment elevation or depression noted. Medical Decision Making - Medical Decision Making Was pt. sent in by a medical professional or institution (, NAGI, DESIGNER ARCHITECT, urgent care, hospital, or group home...) When possible be specific @ -No Did you speak to anyone other than the patient for history (EMS, parent, family, police, friend...)? What history was obtained from this source @ -Yes, EMS did state that the patient had a grand mal seizure when they arrived. Did you review nursing and triage notes (agree or disagree)? Why? @ -I reviewed and agree with nursing and triage notes Were old charts reviewed (outside hosp., previous admission, EMS record, old EKG, old radiological studies, urgent care reports/EKG's, group home records)? Report findings @ -Yes, I did review the patient's notes from his previous admission yesterday including the neurology consult. Differential Diagnosis (chest pain, altered mental status, abdominal pain women, abdominal pain men, vaginal bleeding, weakness, fever, dyspnea, syncope, headache, dizziness, GI bleed, back pain, seizure, CVA, palpatations, mental health)? @ -Breakthrough seizure, epilepsy, electrolyte disturbance EKG interpreted by me (3pts min.). @ -As above X-rays interpreted by me (1pt min.). @ -None done CT interpreted by me (1pt min.). @ -None done U/S interpreted by me (1pt. min.). @ -None done What testing was considered but not performed or refused? (CT, X-rays, U/S, labs)? Why? @ -None What meds were considered but not given or refused? Why? @ -None Did you discuss the management of the patient with other professionals (professionals i.e. , NAGI, DESIGNER ARCHITECT, lab, RT, psych nurse, social work lecturer, intellectual property lawyer, teacher, community development officer, watch caser)? Give summary @ -Yes, admitting physician was contacted regarding patient admission. Was smoking cessation discussed for >3mins.? @ -No Was critical care preformed (if so, how long)? @ -No Were there social determinants of health that impacted care today? How? (Homelessness, low income, unemployed, alcoholism, drug addiction, transportation, low edu. Level, literacy, decrease access to med. care, [facility], rehab)? @ -Previous chronic alcoholism Was there de-escalation of care discussed even if they declined (Discuss DNR or withdrawal of care, Hospice)? DNR status @ -No What co-morbidities impacted this encounter? (DM, HTN, Smoking, COPD, CAD, Cancer, CVA, ARF, Chemo, Hep., AIDS, mental health diagnosis, sleep apnea, morbid obesity)? @ -Seizure disorder Was patient admitted / discharged? Hospital course, mention meds given and route, prescriptions, significant lab abnormalities, going to OR and other pertinent info. @ -The patient was seen and evaluated emergency department. Physical exam, the patient was resting in bed without any acute distress. Vital signs admission were stable. Laboratory workup was once again obtained but was within normal limits. Due to the patient's possible breakthrough seizures despite being on medications, the patient will be admitted for further workup and evaluation with neurology once again on consult. The accepting physician did agree to this and the patient was admitted in stable condition. A Keppra level was ordered however was pending at this time. Undiagnosed new problem with uncertain prognosis? @ -No Drug Therapy requiring intensive monitoring for toxicity (Heparin, Nitro, Insulin, Cardizem)? @ -No Were any procedures done? @ -No Diagnosis/symptom? @ -Breakthrough seizures Acute, or Chronic, or Acute on Chronic? @ -Acute Uncomplicated (without systemic symptoms) or Complicated (systemic symptoms)? @ -Complicated Side effects of treatment? @ -No Exacerbation, Progression, or Severe Exacerbation? @ -No Poses a threat to life or bodily function? How? (Chest pain, USA, LA, pneumonia, PE, COPD, DKA, ARF, appy, cholecystitis, CVA, Diverticulitis, Homicidal, Suicidal, threat to staff... and all critical care pts) @ -Yes, continue seizures can cause worsening damage and possible . - Lab Data Result diagrams: 09/12/22 16:45 09/12/22 16:45 Lab Results 09/12/22 09/12/22 09/12/22 Range/Units 16:45 16:45 16:45 WBC 5.9 (3.8-10.6) k/uL RBC 4.20 L (4.30-5.90) m/uL Hgb 11.9 L (13.0-17.5) gm/dL Hct 37.2 L (39.0-53.0) % MCV 88.7 (80.0-100.0) fL MCH 28.4 (25.0-35.0) pg MCHC 32.0 (31.0-37.0) g/dL RDW 16.2 H (11.5-15.5) % Plt Count 77 L (150-450) k/uL MPV 9.2 Neutrophils % 45 % Lymphocytes % 39 % Monocytes % 9 % Eosinophils % 5 % Basophils % 0 % Neutrophils # 2.7 (1.3-7.7) k/uL Lymphocytes # 2.3 (1.0-4.8) k/uL Monocytes # 0.5 (0-1.0) k/uL Eosinophils # 0.3 (0-0.7) k/uL Basophils # 0.0 (0-0.2) k/uL Manual Slide Review Performed Anisocytosis Slight Target Cells Present Tear Drop Cells Present Sodium 139 (137-145) mmol/L Potassium 3.8 (3.5-5.1) mmol/L Chloride 108 H (98-107) mmol/L Carbon Dioxide 21 L (22-30) mmol/L Anion Gap 10 mmol/L BUN 9 (9-20) mg/dL Creatinine 0.86 (0.66-1.25) mg/dL Est GFR (CKD-EPI)AfAm >90 (>60 ml/min/1.73 sqM) Est GFR (CKD-EPI)NonAf >90 (>60 ml/min/1.73 sqM) Glucose 86 (74-99) mg/dL Plasma Lactic Acid Adiel (0.7-2.0) mmol/L Calcium 8.7 (8.4-10.2) mg/dL Magnesium 1.6 (1.6-2.3) mg/dL Total Bilirubin 1.9 H (0.2-1.3) mg/dL AST 48 (17-59) U/L ALT 25 (4-49) U/L Alkaline Phosphatase 109 (38-126) U/L Creatine Kinase (55-170) U/L Troponin I <0.012 (0.000-0.034) ng/mL Total Protein 6.6 (6.3-8.2) g/dL Albumin 2.8 L (3.5-5.0) g/dL Lipase 392 H (23-300) U/L Serum Alcohol <10 mg/dL 09/12/22 09/12/22 Range/Units 18:23 18:23 WBC (3.8-10.6) k/uL RBC (4.30-5.90) m/uL Hgb (13.0-17.5) gm/dL Hct (39.0-53.0) % MCV (80.0-100.0) fL MCH (25.0-35.0) pg MCHC (31.0-37.0) g/dL RDW (11.5-15.5) % Plt Count (150-450) k/uL MPV Neutrophils % % Lymphocytes % % Monocytes % % Eosinophils % % Basophils % % Neutrophils # (1.3-7.7) k/uL Lymphocytes # (1.0-4.8) k/uL Monocytes # (0-1.0) k/uL Eosinophils # (0-0.7) k/uL Basophils # (0-0.2) k/uL Manual Slide Review Anisocytosis Target Cells Tear Drop Cells Sodium (137-145) mmol/L Potassium (3.5-5.1) mmol/L Chloride (98-107) mmol/L Carbon Dioxide (22-30) mmol/L Anion Gap mmol/L BUN (9-20) mg/dL Creatinine (0.66-1.25) mg/dL Est GFR (CKD-EPI)AfAm (>60 ml/min/1.73 sqM) Est GFR (CKD-EPI)NonAf (>60 ml/min/1.73 sqM) Glucose (74-99) mg/dL Plasma Lactic Acid Adiel 1.2 (0.7-2.0) mmol/L Calcium (8.4-10.2) mg/dL Magnesium (1.6-2.3) mg/dL Total Bilirubin (0.2-1.3) mg/dL AST (17-59) U/L ALT (4-49) U/L Alkaline Phosphatase (38-126) U/L Creatine Kinase 74 (55-170) U/L Troponin I (0.000-0.034) ng/mL Total Protein (6.3-8.2) g/dL Albumin (3.5-5.0) g/dL Lipase (23-300) U/L Serum Alcohol mg/dL Disposition Clinical Impression: Breakthrough seizure Disposition: ADMITTED IP TO THIS [facility] Condition: Stable Is patient prescribed a controlled substance at d/c from ED?: No Referrals: Carlos Enrique Crowder MD [Primary Care Provider] - 1-2 days Time of Disposition: 17:15 Decision to Admit Reason: Admit from EC Decision Date: 09/12/22 Decision Time: 17:15
[2022-09-12 17:59] LABS: Target Cells Present; Tear Drop Cells Present
[2022-09-12 21:05] VITALS: BP 125/78; PULSE 65; RESP 18; TEMP 98.3
--- NOTE | 2022-09-12 21:16 | P.HPIM ---
History of Present Illness H&P Date: 09/12/22 The patient is a 42-year-old male with a PMH of EtOH abuse with liver cirrhosis and hx of seizure disorder who presents to the emergency room for suspected seizure. Of note, the patient was discharged yesterday after 1 day hospitalization for newly diagnosed seizure. The patient was started on Keppra 500 mg by mouth every 12 hourly which the patient reports compliance with. He also reports not having drank for the past few months. He reports being at home earlier tonight at around 4 PM when he was outside on his lawn and suddenly felt as though he was about to have a seizure. He immediately called 911 and the next thing he remembers, he was on the ground with EMS staff waking him up. He denies experiencing urinary incontinence. The patient was reportedly on the phone with 911 when he had a seizure and as per EMS, patient was found facedown and postictal with an abrasion on his head. The patient reports feeling at his baseline at the time of interview. In the emergency room and EKG revealed sinus rhythm at [address]/T-wave changes noted as reviewed by me. Laboratory evaluation in the emergency room was reviewed with the WBC count 5.9, hemoglobin 11.9, platelet count 77, sodium 139, potassium 3.8, lactic acid 1.2, T bili 1.9, AST 48, ALT 25, troponin less than 0.012, and lipase 392. Upon entering the patient's room, the patient's RN notified the marine underwriter at the patient had expressed wishes to leave AMA. This was discussed in detail with the patient. The risks of leaving AMA especially in light of a breakthrough seizure were explained in detail including subsequent seizures, falls, injury, and possibly . The patient verbalized understanding and noted that he does not wish to stay at the hospital tonight. Reiterated with the patient the importance of avoiding motor vehicle use of operating heavy machinery. 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 Discussed with the patient be high likelihood of breakthrough seizure and that I will recommend increasing the dose of Keppra to 750 mg by mouth every 12 hourly for now. ED documentation reviewed and case discussed with ED provider. Review of systems: Pertinent positives and negatives as discussed in HPI, a complete review of systems was performed and all other systems are negative. Physical examination: Vital signs reviewed General: non toxic, no distress, appears at stated age, normal weight Derm: no unusual rashes/lesions, warm Head: atraumatic, normocephalic, symmetric Eyes: EOMI, no lid lag, anicteric sclera, pupils equal round reactive to light ENT: Nose and ears atraumatic Neck: No cervical lymphadenopathy, trachea midline, supple Mouth: no lip lesion, mucus membranes moist, right sided tongue bite noted Cardiovascular: S1S2 reg, no murmur, positive dorsalis pedis pulse bilateral, no edema Lungs: CTA bilateral, no rhonchi, no rales, no accessory muscle use Abdominal: soft, nontender to palpation, no guarding Ext: muscle strength 5 out of 5 in all 4 extremities grossly, no gross muscle atrophy, no contractures, Neuro: CN II-XI grossly intact, no gross focal neuro deficits Psych: Alert, oriented, appropriate affect Assessment: Breakthrough seizure History of alcohol abuse Imaging: In the emergency room and EKG revealed sinus rhythm at [address]/T-wave changes noted as reviewed by me. Data Review: Laboratory evaluation in the emergency room was reviewed with the WBC count 5.9, hemoglobin 11.9, platelet count 77, sodium 139, potassium 3.8, lactic acid 1.2, T bili 1.9, AST 48, ALT 25, troponin less than 0.012, and lipase 392. Plan: Increase Keppra to 750 mg po bid Advised on close follow-up with Neurology and PCP Patient left AMA DVT prophylaxis: Heparin subq CODE STATUS: Full Code Discussed with: Patient Past Medical History Past Medical History: Hypertension, Liver Disease, Seizure Disorder Additional Past Medical History / Comment(s): vomiting blood, hisotry of Alcohol abuse, cirrhosis, ascites, esophageal varicies,last seizure approx 2-3 mos ago History of Any Multi-Drug Resistant Organisms: MRSA Date of last positivie culture/infection: 01/15/21 MDRO Source:: MRSA LEG Past Surgical History: Cholecystectomy, Orthopedic Surgery Additional Past Surgical History / Comment(s): rt hand, 2 lt shoulder, large volume paracentesis approx 4-5 times-last one done approx 1 1/1 yrs ago Past Anesthesia/Blood Transfusion Reactions: No Reported Reaction Past Psychological History: No Psychological Hx Reported Smoking Status: Never smoker Past Alcohol Use History: Abuse, Daily, Heavy Past Drug Use History: None Reported - Past Family History Mother Family Medical History: Hypertension Additional Family Medical History / Comment(s): Mother is living. Father Family Medical History: CVA/TIA Additional Family Medical History / Comment(s): Father is living. Medications and Allergies Home Medications Medication Instructions Recorded Confirmed Type Metoprolol Tartrate [Lopressor] 50 mg PO BID #60 tab 04/12/20 09/12/22 Rx Spironolactone [Aldactone] 100 mg PO DAILY #30 tab 04/12/20 09/12/22 Rx Lactulose 10 gm PO DAILY 04/24/21 09/12/22 History Magnesium Oxide [Mag-Ox] 400 mg PO BID 04/24/21 09/12/22 History Pantoprazole [Protonix] 40 mg PO BID #60 tab 06/01/21 09/12/22 Rx Furosemide [Lasix] 40 mg PO BID 06/12/22 09/12/22 History Sildenafil Citrate 50 mg PO DAILY PRN 06/12/22 09/12/22 History Thiamine [Vitamin B-1] 100 mg PO DAILY 06/12/22 09/12/22 History traZODone HCL [Desyrel] 50 mg PO HS 06/12/22 09/12/22 History Escitalopram [Lexapro] 5 mg PO DAILY 09/11/22 09/12/22 History Ibuprofen [Motrin] 400 mg PO Q6HR PRN tab 09/11/22 09/12/22 Rx levETIRAcetam [Keppra] 750 mg PO Q12HR #30 tab 09/12/22 Rx Allergies Allergy/AdvReac Type Severity Reaction Status Date / Time No Known Allergies Allergy Verified 09/12/22 16:42 Physical Exam Vitals: Vital Signs Temp Pulse Pulse Resp BP BP Pulse Ox 09/12/22 19:32 98.3 F 65 18 125/78 98 09/12/22 18:00 61 20 102/63 97 09/12/22 17:30 65 20 118/73 100 09/12/22 17:00 70 18 123/80 100 09/12/22 16:31 98.0 F 75 22 126/74 99 Intake and Output 09/12/22 09/12/22 09/12/22 06:59 14:59 22:59 Other: Weight 106.594 kg Results CBC & Chem 7: 09/12/22 16:45 09/12/22 16:45 Labs: Abnormal Lab Results - Last 24 Hours (Table) 09/12/22 09/12/22 Range/Units 16:45 16:45 RBC 4.20 L (4.30-5.90) m/uL Hgb 11.9 L (13.0-17.5) gm/dL Hct 37.2 L (39.0-53.0) % RDW 16.2 H (11.5-15.5) % Plt Count 77 L (150-450) k/uL Chloride 108 H (98-107) mmol/L Carbon Dioxide 21 L (22-30) mmol/L Total Bilirubin 1.9 H (0.2-1.3) mg/dL Albumin 2.8 L (3.5-5.0) g/dL Lipase 392 H (23-300) U/L
--- NOTE | 2022-09-12 21:18 | P.DS ---
Providers Date of admission: 09/12/22 17:48 Expected date of discharge: 09/12/22 Attending physician: Av Chung MD Consults: 09/12/22 17:48 Consult Physician Routine Consulting Provider: Hosea Mendoza Consult Reason/Comments: Breakthrough Sz Do you want consulting provider notified?: Yes, Notify in am Primary care physician: [facility] Course: Please refer to the H&P which will serve as the discharge summary. Patient Condition at Discharge: Serious Plan - Discharge Summary Discharge Rx Participant: Yes New Discharge Prescriptions: New levETIRAcetam [Keppra] 750 mg PO Q12HR #30 tab Continue Spironolactone [Aldactone] 100 mg PO DAILY #30 tab Metoprolol Tartrate [Lopressor] 50 mg PO BID #60 tab traZODone HCL [Desyrel] 50 mg PO HS Sildenafil Citrate 50 mg PO DAILY PRN PRN Reason: e.d. Escitalopram [Lexapro] 5 mg PO DAILY Magnesium Oxide [Mag-Ox] 400 mg PO BID Lactulose 10 gm PO DAILY Pantoprazole [Protonix] 40 mg PO BID #60 tab Furosemide [Lasix] 40 mg PO BID Thiamine [Vitamin B-1] 100 mg PO DAILY Ibuprofen [Motrin] 400 mg PO Q6HR PRN tab PRN Reason: Mild Pain Or Fever > 100.5 Discontinued levETIRAcetam [Keppra] 500 mg PO Q12HR #60 tab Discharge Medication List Metoprolol Tartrate [Lopressor] 50 mg PO BID #60 tab 04/12/20 [Rx] Spironolactone [Aldactone] 100 mg PO DAILY #30 tab 04/12/20 [Rx] Lactulose 10 gm PO DAILY 04/24/21 [History] Magnesium Oxide [Mag-Ox] 400 mg PO BID 04/24/21 [History] Pantoprazole [Protonix] 40 mg PO BID #60 tab 06/01/21 [Rx] Furosemide [Lasix] 40 mg PO BID 06/12/22 [History] Sildenafil Citrate 50 mg PO DAILY PRN 06/12/22 [History] Thiamine [Vitamin B-1] 100 mg PO DAILY 06/12/22 [History] traZODone HCL [Desyrel] 50 mg PO HS 06/12/22 [History] Escitalopram [Lexapro] 5 mg PO DAILY 09/11/22 [History] Ibuprofen [Motrin] 400 mg PO Q6HR PRN tab 09/11/22 [Rx] levETIRAcetam [Keppra] 750 mg PO Q12HR #30 tab 09/12/22 [Rx] Follow up Appointment(s)/Referral(s): Carlos Enrique Crowder MD [Primary Care Provider] - 1-2 days Discharge Disposition: LEFT AGAINST MEDICAL ADVICE
== END 2022-09-12 21:00 | disposition left against medical advice (07) | DRG 53 ==
LOC: EC 16:22 → 5NMEDONC 17:48
PROVIDERS: ADMIT Internal Medicine; ATTEND Internal Medicine
DX: G40.909 Epilepsy, unspecified, not intractable, without status epilepticus (principal); F10.11 Alcohol abuse, in remission; I10 Essential (primary) hypertension; K74.60 Unspecified cirrhosis of liver; Z79.899 Other long term (current) drug therapy; Z82.49 Family history of ischemic heart disease and other diseases of the circulatory system
CPT/HCPCS: 36415; 80053; 80177; 80320; 82550; 83605; 83690; 83735; 84146; 84484; 85025; 93005; 96360; 99285

== ENCOUNTER 2022-10-05 23:57 | Emergency (ER) | payer OTHER ==
[2022-10-06 00:01] VITALS: TEMP 98.2
[2022-10-06] MEDS ORDERED: SODIUM CHLORIDE 0.9% 1,000 ML IV STA (00:10)
[2022-10-06] MEDS ORDERED: PANTOPRAZOLE 40 MG/10 ML VIAL IVP STA (00:10)
--- NOTE | 2022-10-06 00:14 | ED ---
General Adult HPI - General Chief complaint: Chest Pain Stated complaint: Chest pain Time Seen by Provider: 10/06/22 00:02 Source: patient, family, RN notes reviewed, old records reviewed Mode of arrival: ambulatory Limitations: no limitations - History of Present Illness Initial comments: 32-year-old male presents for evaluation of chest pain. Patient admits to heavy alcohol consumption over the past 4 days. He had been sober for more than 2 months and began drinking again in the past 4 days. He states the pain does travel into his back. He has previous history of pancreatitis. No fever. No vomiting. - Related Data Home Medications Medication Instructions Recorded Confirmed Lactulose 10 gm PO DAILY 04/24/21 09/12/22 Magnesium Oxide [Mag-Ox] 400 mg PO BID 04/24/21 09/12/22 Furosemide [Lasix] 40 mg PO BID 06/12/22 09/12/22 Sildenafil Citrate 50 mg PO DAILY PRN 06/12/22 09/12/22 Thiamine [Vitamin B-1] 100 mg PO DAILY 06/12/22 09/12/22 traZODone HCL [Desyrel] 50 mg PO HS 06/12/22 09/12/22 Escitalopram [Lexapro] 5 mg PO DAILY 09/11/22 09/12/22 Previous Rx's Medication Instructions Recorded Metoprolol Tartrate [Lopressor] 50 mg PO BID #60 tab 04/12/20 Spironolactone [Aldactone] 100 mg PO DAILY #30 tab 04/12/20 Pantoprazole [Protonix] 40 mg PO BID #60 tab 06/01/21 Ibuprofen [Motrin] 400 mg PO Q6HR PRN tab 09/11/22 levETIRAcetam [Keppra] 750 mg PO Q12HR #30 tab 09/12/22 Allergies Allergy/AdvReac Type Severity Reaction Status Date / Time No Known Allergies Allergy Verified 10/06/22 00:01 Review of Systems ROS Statement: Those systems with pertinent positive or pertinent negative responses have been documented in the HPI. ROS Other: All systems not noted in ROS Statement are negative. Past Medical History Past Medical History: Hypertension, Liver Disease, Seizure Disorder Additional Past Medical History / Comment(s): vomiting blood, hisotry of Alcohol abuse, cirrhosis, ascites, esophageal varicies,last seizure approx 2-3 mos ago History of Any Multi-Drug Resistant Organisms: MRSA Date of last positivie culture/infection: 01/15/21 MDRO Source:: MRSA LEG Past Surgical History: Cholecystectomy, Orthopedic Surgery Additional Past Surgical History / Comment(s): rt hand, 2 lt shoulder, large volume paracentesis approx 4-5 times-last one done approx 1 1/1 yrs ago Past Anesthesia/Blood Transfusion Reactions: No Reported Reaction Past Psychological History: No Psychological Hx Reported Smoking Status: Never smoker Past Alcohol Use History: Abuse, Daily, Heavy Past Drug Use History: None Reported - Past Family History Mother Family Medical History: Hypertension Additional Family Medical History / Comment(s): Mother is living. Father Family Medical History: CVA/TIA Additional Family Medical History / Comment(s): Father is living. General Exam Limitations: no limitations General appearance: alert, in no apparent distress, appears intoxicated Head exam: Present: atraumatic, normocephalic Eye exam: Present: normal appearance, PERRL ENT exam: Present: normal exam Neck exam: Present: normal inspection Respiratory exam: Present: normal lung sounds bilaterally. Absent: respiratory distress, wheezes Cardiovascular Exam: Present: regular rate, normal rhythm GI/Abdominal exam: Present: soft, tenderness (Mild right upper quadrant tenderness). Absent: distended Extremities exam: Present: normal inspection, normal capillary refill Neurological exam: Present: alert, oriented X3, CN II-XII intact. Absent: motor sensory deficit Psychiatric exam: Present: normal affect, normal mood Skin exam: Present: warm, dry, intact Course Vital Signs 10/05/22 10/06/22 10/06/22 23:58 00:34 01:55 Temperature 98.2 F Pulse Rate 80 75 80 Respiratory 18 16 16 Rate Blood Pressure 152/92 152/86 151/91 O2 Sat by Pulse 100 99 98 Oximetry - Reevaluation(s) Reevaluation #1: 10/06/22 04:36 Patient reevaluated, wishes to be discharged. He does have a friend who is able to pick him up. No further chest pain. Patient is not interested in rehabilitation at this time. Medical Decision Making - Medical Decision Making Was pt. sent in by a medical professional or institution (, PA, STNA, urgent care, hospital, or long term...) When possible be specific @ -No Did you speak to anyone other than the patient for history (EMS, parent, family, police, friend...)? What history was obtained from this source @ -[Patient's family member who is at bedside Did you review nursing and triage notes (agree or disagree)? Why? @ -I reviewed and agree with nursing and triage notes Were old charts reviewed (outside hosp., previous admission, EMS record, old EKG, old radiological studies, urgent care reports/EKG's, long term records)? Report findings @ -No old charts were reviewed Differential Diagnosis (chest pain, altered mental status, abdominal pain women, abdominal pain men, vaginal bleeding, weakness, fever, dyspnea, syncope, headache, dizziness, GI bleed, back pain, seizure, CVA, palpatations, mental health, musculoskeletal)? @ -Differential Chest Pain: Stable Angina, Unstable Angina, STEMI, NSTEMI Aortic Dissection, Pneumothorax, Musculoskeletal, Esophageal Spasm GERD, Cholecystitis, Pancreatitis, Zoster, this is not meant to be an all-inclusive list. EKG interpreted by me (3pts min.). @ -Sinus rhythm, rate of 87, CO interval 188, QRS duration 105, QTC 476 which is prolonged, no ST segment elevation. X-rays interpreted by me (1pt min.). @ Chest x-ray negative for acute cardiopulmonary findings CT interpreted by me (1pt min.). @ -None done U/S interpreted by me (1pt. min.). @ -None done What testing was considered but not performed or refused? (CT, X-rays, U/S, labs)? Why? @ -None What meds were considered but not given or refused? Why? @ -None Did you discuss the management of the patient with other professionals (professionals i.e. , PA, STNA, lab, RT, psych nurse, social service assistant, electrical engineer, teacher, plain clothes police officer, case specialist)? Give summary @ -No Was smoking cessation discussed for >3mins.? @ -No Was critical care preformed (if so, how long)? @ -No Were there social determinants of health that impacted care today? How? (Homelessness, low income, unemployed, alcoholism, drug addiction, transportation, low edu. Level, literacy, decrease access to med. care, snf, rehab)? @ -[Alcohol abuse Was there de-escalation of care discussed even if they declined (Discuss DNR or withdrawal of care, Hospice)? DNR status @ -No What co-morbidities impacted this encounter? (DM, HTN, Smoking, COPD, CAD, Ca ncer, CVA, ARF, Chemo, Hep., AIDS, mental health diagnosis, sleep apnea, morbid obesity)? @ -Alcohol abuse Was patient admitted / discharged? Hospital course, mention meds given and route, prescriptions, significant lab abnormalities, going to OR and other perti nent info. @ -42-year-old male with chest pain, alcohol abuse, recent heavy alcohol consumption within the past 4 days. EKG is sinus without ST segment elevation. Patient has multiple chronic lab abnormalities which are at baseline for this patient and consistent with alcohol abuse. Troponin is negative 2 Undiagnosed new problem with uncertain prognosis? @ -No Drug Therapy requiring intensive monitoring for toxicity (Heparin, Nitro, Insulin, Cardizem)? @ -No Were any procedures done? @ -No Diagnosis/symptom? @ Alcohol intoxication, chest pain Acute, or Chronic, or Acute on Chronic? @ -Acute on chronic Uncomplicated (without systemic symptoms) or Complicated (systemic symptoms)? @ -default Side effects of treatment? @ -No Exacerbation, Progression, or Severe Exacerbation? @ -No Poses a threat to life or bodily function? How? (Chest pain, [place], [place], pneumonia, PE, COPD, DKA, ARF, appy, cholecystitis, CVA, Diverticulitis, Homicidal, Suicidal, threat to staff... and all critical care pts) @ -yes - Lab Data Result diagrams: 10/06/22 00:10 10/06/22 00:10 Lab Results 10/06/22 10/06/22 10/06/22 Range/Units 00:10 00:10 00:10 WBC 7.6 (3.8-10.6) k/uL RBC 4.12 L (4.30-5.90) m/uL Hgb 12.1 L (13.0-17.5) gm/dL Hct 34.9 L (39.0-53.0) % MCV 84.7 (80.0-100.0) fL MCH 29.4 (25.0-35.0) pg MCHC 34.7 (31.0-37.0) g/dL RDW 17.2 H (11.5-15.5) % Plt Count 92 L (150-450) k/uL MPV 9.0 Neutrophils % 33 % Lymphocytes % 53 % Monocytes % 6 % Eosinophils % 4 % Basophils % 1 % Neutrophils # 2.5 (1.3-7.7) k/uL Lymphocytes # 4.0 (1.0-4.8) k/uL Monocytes # 0.5 (0-1.0) k/uL Eosinophils # 0.3 (0-0.7) k/uL Basophils # 0.1 (0-0.2) k/uL Anisocytosis Slight PT 15.2 H (9.0-12.0) sec INR 1.5 H (<1.2) APTT 28.1 (22.0-30.0) sec Sodium 132 L (137-145) mmol/L Potassium 3.4 L (3.5-5.1) mmol/L Chloride 97 L (98-107) mmol/L Carbon Dioxide 22 (22-30) mmol/L Anion Gap 13 mmol/L BUN <2 L (9-20) mg/dL Creatinine 0.58 L (0.66-1.25) mg/dL Est GFR (CKD-EPI)AfAm >90 (>60 ml/min/1.73 sqM) Est GFR (CKD-EPI)NonAf >90 (>60 ml/min/1.73 sqM) Glucose 97 (74-99) mg/dL Calcium 8.4 (8.4-10.2) mg/dL Magnesium 1.7 (1.6-2.3) mg/dL Total Bilirubin 2.5 H (0.2-1.3) mg/dL AST 121 H (17-59) U/L ALT 51 H (4-49) U/L Alkaline Phosphatase 114 (38-126) U/L Troponin I (0.000-0.034) ng/mL Total Protein 7.4 (6.3-8.2) g/dL Albumin 3.4 L (3.5-5.0) g/dL Lipase 325 H (23-300) U/L Urine Color Urine Appearance (Clear) Urine pH (5.0-8.0) Ur Specific [place] (1.001-1.035) Urine Protein (Negative) Urine Glucose (UA) (Negative) Urine Ketones (Negative) Urine Blood (Negative) Urine Nitrite (Negative) Urine Bilirubin (Negative) Urine Urobilinogen (<2.0) mg/dL Ur Leukocyte Esterase (Negative) Serum Alcohol 339 H* mg/dL 10/06/22 10/06/22 10/06/22 Range/Units 00:10 01:41 03:10 WBC (3.8-10.6) k/uL RBC (4.30-5.90) m/uL Hgb (13.0-17.5) gm/dL Hct (39.0-53.0) % MCV (80.0-100.0) fL MCH (25.0-35.0) pg MCHC (31.0-37.0) g/dL RDW (11.5-15.5) % Plt Count (150-450) k/uL MPV Neutrophils % % Lymphocytes % % Monocytes % % Eosinophils % % Basophils % % Neutrophils # (1.3-7.7) k/uL Lymphocytes # (1.0-4.8) k/uL Monocytes # (0-1.0) k/uL Eosinophils # (0-0.7) k/uL Basophils # (0-0.2) k/uL Anisocytosis PT (9.0-12.0) sec INR (<1.2) APTT (22.0-30.0) sec Sodium (137-145) mmol/L Potassium (3.5-5.1) mmol/L Chloride (98-107) mmol/L Carbon Dioxide (22-30) mmol/L Anion Gap mmol/L BUN (9-20) mg/dL Creatinine (0.66-1.25) mg/dL Est GFR (CKD-EPI)AfAm (>60 ml/min/1.73 sqM) Est GFR (CKD-EPI)NonAf (>60 ml/min/1.73 sqM) Glucose (74-99) mg/dL Calcium (8.4-10.2) mg/dL Magnesium (1.6-2.3) mg/dL Total Bilirubin (0.2-1.3) mg/dL AST (17-59) U/L ALT (4-49) U/L Alkaline Phosphatase (38-126) U/L Troponin I 0.026 0.033 (0.000-0.034) ng/mL Total Protein (6.3-8.2) g/dL Albumin (3.5-5.0) g/dL Lipase (23-300) U/L Urine Color Colorless Urine Appearance Clear (Clear) Urine pH 6.0 (5.0-8.0) Ur Specific [place] 1.001 (1.001-1.035) Urine Protein Negative (Negative) Urine Glucose (UA) Negative (Negative) Urine Ketones Negative (Negative) Urine Blood Negative (Negative) Urine Nitrite Negative (Negative) Urine Bilirubin Negative (Negative) Urine Urobilinogen <2.0 (<2.0) mg/dL Ur Leukocyte Esterase Negative (Negative) Serum Alcohol mg/dL Disposition Clinical Impression: Chest pain, Alcoholic intoxication Disposition: HOME SELF-CARE Condition: Fair Instructions (If sedation given, give patient instructions): Chest Pain (ED), Alcohol Intoxication (ED) Is patient prescribed a controlled substance at d/c from ED?: No Referrals: Carlos Enrique Crowder MD [Primary Care Provider] - 1-2 days Time of Disposition: 04:00
[2022-10-06 00:32] LABS: INR 1.5 (<1.2); Partial Thromboplastin Time 28.1 sec (22.0-30.0); Prothrombin Time 15.2 sec (9.0-12.0)
[2022-10-06 00:35] VITALS: RESP 16
[2022-10-06 00:39] LABS: Anisocytosis Slight; Basophils # (A) 0.1 k/uL (0-0.2); Basophils % (A) 1 %; Eosinophils # (A) 0.3 k/uL (0-0.7); Eosinophils % (A) 4 %; HCT 34.9 % (39.0-53.0); HGB 12.1 gm/dL (13.0-17.5); Lymphocytes % (A) 53 %; MCH 29.4 pg (25.0-35.0); MCHC 34.7 g/dL (31.0-37.0); MCV 84.7 fL (80.0-100.0); Monocytes # (A) 0.5 k/uL (0-1.0); Monocytes % (A) 6 %; Neutrophils # (A) 2.5 k/uL (1.3-7.7); Neutrophils % (A) 33 %; RBC 4.12 m/uL (4.30-5.90); RDW 17.2 % (11.5-15.5); WBC 7.6 k/uL (3.8-10.6)
[2022-10-06 00:40] LABS: Platelet Count 92 k/uL (150-450)
[2022-10-06 01:21] LABS: ALT 51 U/L (4-49); AST 121 U/L (17-59); African American GFR (CKD) >90 (>60 ml/min/1.73 sqM); Albumin 3.4 g/dL (3.5-5.0); Alkaline Phosphatase 114 U/L (38-126); Anion Gap 13 mmol/L; Blood Urea Nitrogen <2 mg/dL (9-20); Calcium 8.4 mg/dL (8.4-10.2); Carbon Dioxide 22 mmol/L (22-30); Chloride 97 mmol/L (98-107); Glucose 97 mg/dL (74-99); Lipase 325 U/L (23-300); Magnesium 1.7 mg/dL (1.6-2.3); Non-African American GFR(CKD) >90 (>60 ml/min/1.73 sqM); Potassium 3.4 mmol/L (3.5-5.1); Sodium 132 mmol/L (137-145); Total Bilirubin 2.5 mg/dL (0.2-1.3); Total Protein 7.4 g/dL (6.3-8.2)
[2022-10-06 01:49] LABS: Appearance,Urine Clear (Clear); Bilirubin,Urine Negative (Negative); Blood,Urine Negative (Negative); Color,Urine Colorless; Glucose,Urine (UA) Negative (Negative); Ketones,Urine Negative (Negative); Leukocyte Esterase,Urine Negative (Negative); Nitrite,Urine Negative (Negative); Protein,Urine Negative (Negative); Specific Gravity,Urine 1.001 (1.001-1.035); Urobilinogen,Urine <2.0 mg/dL (<2.0)
[2022-10-06 01:56] VITALS: BP 151/91; PULSE 80
[2022-10-06 01:58] LABS: Alcohol 339 mg/dL
== END 2022-10-06 04:48 | disposition home or self-care (01) ==
LOC: EC 23:57
DX: R07.9 Chest pain, unspecified (principal); F10.129 Alcohol abuse with intoxication, unspecified; I10 Essential (primary) hypertension; Z79.899 Other long term (current) drug therapy; Y90.8 Blood alcohol level of 240 mg/100 ml or more
CPT/HCPCS: 36415; 93005; 80053; 83690; 83735; 84484; 85025; 85610; 85730; 81003; 71046; 99285; 96374; 96361; G0480; C9113; 80320

== ENCOUNTER 2023-02-02 05:52 | Emergency (ER) | payer OTHER ==
[2023-02-02 06:13] VITALS: RESP 18; TEMP 98
[2023-02-02] MEDS ORDERED: KETOROLAC 15 MG/ML 1 ML VIAL IVP STA ×2 (06:24→09:58)
[2023-02-02] MEDS ORDERED: SODIUM CHLORIDE 0.9% 2,000 ML IV ONE (06:24)
[2023-02-02] MEDS ORDERED: METOCLOPRAMIDE 5 MG/ML 2 ML VIAL IVP STA (06:24)
[2023-02-02] MEDS ORDERED: diphenhydrAMINE 50 MG/ML 1 ML VIAL IVP STA (06:24)
[2023-02-02] MEDS ORDERED: FAMOTIDINE 20 MG/2 ML VIAL IV STA (06:24)
[2023-02-02 06:32] LABS: Anisocytosis Slight; Basophils # (A) 0.1 k/uL (0-0.2); Basophils % (A) 1 %; Eosinophils # (A) 0.1 k/uL (0-0.7); Eosinophils % (A) 1 %; HCT 35.9 % (39.0-53.0); HGB 12.1 gm/dL (13.0-17.5); Lymphocytes # (A) 1.9 k/uL (1.0-4.8); Lymphocytes % (A) 24 %; MCH 29.5 pg (25.0-35.0); MCHC 33.6 g/dL (31.0-37.0); MCV 87.9 fL (80.0-100.0); Mean Platelet Volume 7.8; Monocytes # (A) 0.6 k/uL (0-1.0); Monocytes % (A) 8 %; Neutrophils % (A) 64 %; Platelet Count 99 k/uL (150-450); RBC 4.08 m/uL (4.30-5.90); RDW 16.5 % (11.5-15.5); WBC 7.9 k/uL (3.8-10.6)
--- NOTE | 2023-02-02 06:48 | ED ---
Abdominal Pain HPI - General Chief Complaint: Abdominal Pain Stated Complaint: ETOH/Headache Time Seen by Provider: 02/02/23 06:10 Source: patient, RN notes reviewed Mode of arrival: ambulatory Limitations: no limitations - History of Present Illness Initial Comments: 42-year-old male presents emergency Department with chief complaint of abdominal, back pain, headache, alcohol abuse. Patient states that he was sober up until recently when he states he relapsed. He states he was on Librium prior to this he states he has drank several beers over the last few days. Patient complains of diffuse abdominal pain, diarrhea, nausea. Patient states he just went of headache without significant change with oral medications. Patient states he does have some bruising across his face that was from moving something. Denies any neck pain he's had prior cholecystectomy denies any change in urination. He states that his diarrhea is very watery. - Related Data Home Medications Medication Instructions Recorded Confirmed Lactulose 10 gm PO DAILY 04/24/21 09/12/22 Magnesium Oxide [Mag-Ox] 400 mg PO BID 04/24/21 09/12/22 Furosemide [Lasix] 40 mg PO BID 06/12/22 09/12/22 Sildenafil Citrate 50 mg PO DAILY PRN 06/12/22 09/12/22 Thiamine [Vitamin B-1] 100 mg PO DAILY 06/12/22 09/12/22 traZODone HCL [Desyrel] 50 mg PO HS 06/12/22 09/12/22 Escitalopram [Lexapro] 5 mg PO DAILY 09/11/22 09/12/22 Previous Rx's Medication Instructions Recorded Metoprolol Tartrate [Lopressor] 50 mg PO BID #60 tab 04/12/20 Spironolactone [Aldactone] 100 mg PO DAILY #30 tab 04/12/20 Pantoprazole [Protonix] 40 mg PO BID #60 tab 06/01/21 Ibuprofen [Motrin] 400 mg PO Q6HR PRN tab 09/11/22 levETIRAcetam [Keppra] 750 mg PO Q12HR #30 tab 09/12/22 Dicyclomine [Bentyl] 20 mg PO TID #30 tablet 02/02/23 Ondansetron Odt [Zofran Odt] 4 mg PO Q8HR PRN #10 tab 02/02/23 Allergies Allergy/AdvReac Type Severity Reaction Status Date / Time No Known Allergies Allergy Verified 02/02/23 06:09 Review of Systems ROS Statement: Those systems with pertinent positive or pertinent negative responses have been documented in the HPI. ROS Other: All systems not noted in ROS Statement are negative. Past Medical History Past Medical History: Hypertension, Liver Disease, Seizure Disorder Additional Past Medical History / Comment(s): vomiting blood, hisotry of Alcohol abuse, cirrhosis, ascites, esophageal varicies,last seizure approx 2-3 mos ago History of Any Multi-Drug Resistant Organisms: MRSA Date of last positivie culture/infection: 01/15/21 MDRO Source:: MRSA LEG Past Surgical History: Cholecystectomy, Orthopedic Surgery Additional Past Surgical History / Comment(s): rt hand, 2 lt shoulder, large volume paracentesis approx 4-5 times-last one done approx 1 1/1 yrs ago Past Anesthesia/Blood Transfusion Reactions: No Reported Reaction Past Psychological History: No Psychological Hx Reported Smoking Status: Never smoker Past Alcohol Use History: Abuse, Daily, Heavy Past Drug Use History: None Reported - Past Family History Mother Family Medical History: Hypertension Additional Family Medical History / Comment(s): Mother is living. Father Family Medical History: CVA/TIA Additional Family Medical History / Comment(s): Father is living. General Exam Limitations: no limitations General appearance: alert, in no apparent distress Head exam: Present: atraumatic, normocephalic, normal inspection Eye exam: Present: normal appearance, PERRL, EOMI. Absent: scleral icterus, conjunctival injection, periorbital swelling ENT exam: Present: normal exam, normal oropharynx, mucous membranes moist Neck exam: Present: normal inspection, full ROM. Absent: tenderness, meningismus, lymphadenopathy Respiratory exam: Present: normal lung sounds bilaterally. Absent: respiratory distress, wheezes, rales, rhonchi, stridor Cardiovascular Exam: Present: regular rate, normal rhythm, normal heart sounds. Absent: systolic murmur, diastolic murmur, rubs, gallop, clicks GI/Abdominal exam: Present: soft, tenderness, normal bowel sounds. Absent: distended, guarding, rebound, rigid Neurological exam: Present: alert, oriented X3, CN II-XII intact Course Vital Signs 02/02/23 02/02/23 06:00 09:00 Temperature 98 F Pulse Rate 75 80 Respiratory 18 18 Rate Blood Pressure 149/88 140/80 O2 Sat by Pulse 97 98 Oximetry Medical Decision Making - Medical Decision Making Was pt. sent in by a medical professional or institution (NAGI Sylvester, HOME LIGHTING ADVISER, urgent c are, hospital, or assisted...) When possible be specific @ -No Did you speak to anyone other than the patient for history (EMS, parent, family, police, friend...)? What history was obtained from this source @ -No Did you review nursing and triage notes (agree or disagree)? Why? @ -I reviewed and agree with nursing and triage notes Were old charts reviewed (outside hosp., previous admission, EMS record, old EKG, old radiological studies, urgent care reports/EKG's, assisted records)? Report findings @ -No old charts were reviewed Differential Diagnosis (chest pain, altered mental status, abdominal pain women, abdominal pain men, vaginal bleeding, weakness, fever, dyspnea, syncope, headache, dizziness, GI bleed, back pain, seizure, CVA, palpatations, mental health, musculoskeletal)? @ -Differential Abdominal Pain Men: Appendicitis, cholecystitis, diverticulosis, ischemic bowel, pancreatitis, hepatitis, UTI, gastroenteritis, AAA, incarcerated hernia, bowel obstruction, constipation, inflammatory bowel, hepatitis, peptic ulcer disease, splenic infarction, perforated viscus, testicular torsion, this is not meant to be an all-inclusive listble EKG interpreted by me (3pts min.). @ -None X-rays interpreted by me (1pt min.). @ -None done CT interpreted by me (1pt min.). @ -CT brain shows no acute process, CT and pelvis with contrast showing mild enteritis type changes, liver changes which are chronic U/S interpreted by me (1pt. min.). @ -None done What testing was considered but not performed or refused? (CT, X-rays, U/S, labs)? Why? @ -None What meds were considered but not given or refused? Why? @ -None Did you discuss the management of the patient with other professionals (professionals i.e. NAGI Sylvester, HOME LIGHTING ADVISER, lab, RT, psych nurse, healthcare social worker, saw man, teacher, collections officer, director of casework department)? Give summary @ -No Was smoking cessation discussed for >3mins.? @ -No Was critical care preformed (if so, how long)? @ -No Were there social determinants of health that impacted care today? How? (Homelessness, low income, unemployed, alcoholism, drug addiction, transportation, low edu. Level, literacy, decrease access to med. care, assisted, rehab)? @ -No Was there de-escalation of care discussed even if they declined (Discuss DNR or withdrawal of care, Hospice)? DNR status @ -No What co-morbidities impacted this encounter? (DM, HTN, Smoking, COPD, CAD, Cancer, CVA, ARF, Chemo, Hep., AIDS, mental health diagnosis, sleep apnea, morbid obesity)? @ -Alcohol abuse, liver cirrhosis Was patient admitted / discharged? Hospital course, mention meds given and route, prescriptions, significant lab abnormalities, going to OR and other pertinent info. @ -Discharge patient workup showing evidence of mild dehydration, hyponatremia, alcohol intoxication with evidence of enteritis. Patient discharged after IV fluids and antiemetics. Undiagnosed new problem with uncertain prognosis? @ -No Drug Therapy requiring intensive monitoring for toxicity (Heparin, Nitro, Insulin, Cardizem)? @ -No Were any procedures done? @ -No Diagnosis/symptom? @ -Enteritis, alcohol intoxication, headache, dehydration Acute, or Chronic, or Acute on Chronic? @ -Acute Uncomplicated (without systemic symptoms) or Complicated (systemic symptoms)? @ -, Complicated Side effects of treatment? @ -No Exacerbation, Progression, or Severe Exacerbation? @ -No Poses a threat to life or bodily function? How? (Chest pain, USA, OR, pneumonia, PE, COPD, DKA, ARF, appy, cholecystitis, CVA, Diverticulitis, Homicidal, Cl[place] cidal, threat to staff... and all critical care pts) @ -Yes patient has liver cirrhosis with continued alcohol abuse - Lab Data Result diagrams: 02/02/23 06:22 02/02/23 06:22 Lab Results 02/02/23 02/02/23 02/02/23 Range/Units 06:22 06:22 06:22 WBC 7.9 (3.8-10.6) k/uL RBC 4.08 L (4.30-5.90) m/uL Hgb 12.1 L (13.0-17.5) gm/dL Hct 35.9 L (39.0-53.0) % MCV 87.9 (80.0-100.0) fL MCH 29.5 (25.0-35.0) pg MCHC 33.6 (31.0-37.0) g/dL RDW 16.5 H (11.5-15.5) % Plt Count 99 L (150-450) k/uL MPV 7.8 Neutrophils % 64 % Lymphocytes % 24 % Monocytes % 8 % Eosinophils % 1 % Basophils % 1 % Neutrophils # 5.0 (1.3-7.7) k/uL Lymphocytes # 1.9 (1.0-4.8) k/uL Monocytes # 0.6 (0-1.0) k/uL Eosinophils # 0.1 (0-0.7) k/uL Basophils # 0.1 (0-0.2) k/uL Anisocytosis Slight Sodium 128 L (137-145) mmol/L Potassium 4.0 (3.5-5.1) mmol/L Chloride 93 L (98-107) mmol/L Carbon Dioxide 23 (22-30) mmol/L Anion Gap 12 mmol/L BUN 6 L (9-20) mg/dL Creatinine 0.62 L (0.66-1.25) mg/dL Est GFR (CKD-EPI)AfAm >90 (>60 ml/min/1.73 sqM) Est GFR (CKD-EPI)NonAf >90 (>60 ml/min/1.73 sqM) Glucose 111 H (74-99) mg/dL Plasma Lactic Acid Adiel (0.7-2.0) mmol/L Calcium 8.5 (8.4-10.2) mg/dL Magnesium 1.8 (1.6-2.3) mg/dL Total Bilirubin 1.9 H (0.2-1.3) mg/dL AST 84 H (17-59) U/L ALT 37 (4-49) U/L Alkaline Phosphatase 87 (38-126) U/L Total Protein 7.2 (6.3-8.2) g/dL Albumin 3.5 (3.5-5.0) g/dL Lipase 323 H (23-300) U/L Urine Color Yellow Urine Appearance Clear (Clear) Urine pH 6.5 (5.0-8.0) Ur Specific [place] 1.010 (1.001-1.035) Urine Protein Negative (Negative) Urine Glucose (UA) Negative (Negative) Urine Ketones Negative (Negative) Urine Blood Negative (Negative) Urine Nitrite Negative (Negative) Urine Bilirubin Negative (Negative) Urine Urobilinogen <2.0 (<2.0) mg/dL Ur Leukocyte Esterase Negative (Negative) Serum Alcohol 225 H* mg/dL 02/02/23 Range/Units 06:22 WBC (3.8-10.6) k/uL RBC (4.30-5.90) m/uL Hgb (13.0-17.5) gm/dL Hct (39.0-53.0) % MCV (80.0-100.0) fL MCH (25.0-35.0) pg MCHC (31.0-37.0) g/dL RDW (11.5-15.5) % Plt Count (150-450) k/uL MPV Neutrophils % % Lymphocytes % % Monocytes % % Eosinophils % % Basophils % % Neutrophils # (1.3-7.7) k/uL Lymphocytes # (1.0-4.8) k/uL Monocytes # (0-1.0) k/uL Eosinophils # (0-0.7) k/uL Basophils # (0-0.2) k/uL Anisocytosis Sodium (137-145) mmol/L Potassium (3.5-5.1) mmol/L Chloride (98-107) mmol/L Carbon Dioxide (22-30) mmol/L Anion Gap mmol/L BUN (9-20) mg/dL Creatinine (0.66-1.25) mg/dL Est GFR (CKD-EPI)AfAm (>60 ml/min/1.73 sqM) Est GFR (CKD-EPI)NonAf (>60 ml/min/1.73 sqM) Glucose (74-99) mg/dL Plasma Lactic Acid Adiel 1.3 (0.7-2.0) mmol/L Calcium (8.4-10.2) mg/dL Magnesium (1.6-2.3) mg/dL Total Bilirubin (0.2-1.3) mg/dL AST (17-59) U/L ALT (4-49) U/L Alkaline Phosphatase (38-126) U/L Total Protein (6.3-8.2) g/dL Albumin (3.5-5.0) g/dL Lipase (23-300) U/L Urine Color Urine Appearance (Clear) Urine pH (5.0-8.0) Ur Specific [place] (1.001-1.035) Urine Protein (Negative) Urine Glucose (UA) (Negative) Urine Ketones (Negative) Urine Blood (Negative) Urine Nitrite (Negative) Urine Bilirubin (Negative) Urine Urobilinogen (<2.0) mg/dL Ur Leukocyte Esterase (Negative) Serum Alcohol mg/dL Disposition Clinical Impression: Hyponatremia, Enteritis, Alcoholic intoxication Disposition: HOME SELF-CARE Condition: Stable Instructions (If sedation given, give patient instructions): Enteritis (ED) Additional Instructions: Please return to the Emergency Department if symptoms worsen or any other concerns. Prescriptions: Dicyclomine [Bentyl] 20 mg PO TID #30 tablet Ondansetron Odt [Zofran Odt] 4 mg PO Q8HR PRN #10 tab PRN Reason: Nausea Is patient prescribed a controlled substance at d/c from ED?: No Referrals: Carlos Enrique Crowder MD [Primary Care Provider] - 1-2 days Time of Disposition: 09:52
[2023-02-02 06:49] LABS: ALT 37 U/L (4-49); AST 84 U/L (17-59); African American GFR (CKD) >90 (>60 ml/min/1.73 sqM); Albumin 3.5 g/dL (3.5-5.0); Alkaline Phosphatase 87 U/L (38-126); Anion Gap 12 mmol/L; Blood Urea Nitrogen 6 mg/dL (9-20); Calcium 8.5 mg/dL (8.4-10.2); Carbon Dioxide 23 mmol/L (22-30); Chloride 93 mmol/L (98-107); Glucose 111 mg/dL (74-99); Lipase 323 U/L (23-300); Magnesium 1.8 mg/dL (1.6-2.3); Non-African American GFR(CKD) >90 (>60 ml/min/1.73 sqM); Sodium 128 mmol/L (137-145); Total Bilirubin 1.9 mg/dL (0.2-1.3); Total Protein 7.2 g/dL (6.3-8.2)
--- NOTE | 2023-02-02 06:57 | CT ---
EXAMINATION TYPE: CT brain wo con DATE OF EXAM: 02/02/2023 COMPARISON: 09/11/2022 HISTORY: 42-year-old male trauma, alcohol use, Abd pain/diarrhea and lower back pain x 2 weeks. Heada ches x 1wk. TECHNIQUE: Examination was done in axial plane without intravenous contrast. Coronal and sagittal r econstructions performed. CT DLP: 1070.4 mGycm Automated exposure control for dose reduction was used. FINDINGS: There is no evidence of acute intracranial hemorrhage, acute ischemic changes, mass, mass-effect, or extra-axial fluid collection. There is no effacement of cerebral sulci or basal subarachnoid cister ns. There is no hydrocephalus. There is no midline shift. Diez-white matter distinction is preserv ed. Either prominent perivascular spaces or old lacunar infarct left basal ganglia remain unchanged. Slight leftward nasal septal deviation. Paranasal sinuses and mastoid air cells well pneumatized. Orb its and globes appear intact. IMPRESSION: No acute intracranial abnormality seen.
[2023-02-02 06:59] LABS: Alcohol 225 mg/dL
--- NOTE | 2023-02-02 08:31 | CT ---
EXAMINATION TYPE: CT abdomen pelvis w con DATE OF EXAM: 02/02/2023 COMPARISON: 06/29/2022 and 05/30/2021 HISTORY: 42-year-old male Abd pain/diarrhea and lower back pain x 2 weeks. Headaches x 1wk. TECHNIQUE: Contiguous axial scanning of the abdomen and pelvis following administration of 100 ml Iso nelsy 300 IV contrast. Delayed images through the kidneys and coronal/sagittal reconstructions perform ed. CT DLP: 1758.2 mGycm Automated exposure control for dose reduction was used. FINDINGS: The heart is normal size without pericardial effusion. Lung bases without pleural effusion. Questionable subtle contour nodularity along some portions of the liver. There also be underlying fat ty infiltration of the liver. Interval cholecystectomy. No obvious biliary ductal dilatation. Adrenal glands, kidneys, and pancreas within normal limits. Some bulbous prominence to the pancreatic tail remains unchanged. Spleen upper limits of normal in size at 13.1 cm. There appears to be prominent collateral vessels/there are CTs in the right lateral and right lower q uadrants of the abdomen with clustered enhancing vascular structures, for example, axial image 22 and 29. We also note prominent right renal vein and possible portal shunting here. Additional prominent collateral vessels lower left periaortic, axial image 45. Some prominent fluid-filled small bowel loops throughout the mid to lower abdomen and pelvis. Some po ssible mild small bowel wall thickening also present. Normal appendix suspected. Mild scattered stool. Mild sigmoid diverticulosis. No pericolonic inflamma tory change. No mesenteric or retroperitoneal adenopathy identified. Mild circumferential bladder wall thickening. No abnormal fluid collection the pelvis or pelvic lymph adenopathy. Bones: Mild to moderate degenerative disc disease and facet arthropathy mid to lower lumbar spine. IMPRESSION: 1. PROMINENT FLUID-FILLED SMALL BOWEL LOOPS MID TO LOWER ABDOMEN AND PELVIS WITH QUESTIONABLE AREAS O F MILD SMALL BOWEL WALL THICKENING. CONSIDER A NONSPECIFIC MILD ENTERITIS. 2. CORRELATE FOR HEPATIC STEATOSIS AND POSSIBLE UNDERLYING CIRRHOSIS. RECOMMEND GI REFERRAL FOR FURTH ER EVALUATION. 3. PROMINENT COLLATERAL VESSELS/VARICES IN THE RIGHT SIDE OF THE ABDOMEN AND RIGHT LOWER QUADRANT. PO SSIBLE PORTOSYSTEMIC SHUNTING INTO THE RIGHT RENAL VEIN. THIS COULD BE A CONSEQUENCE OF UNDERLYING PO RTAL VENOUS HYPERTENSION. ADDITIONAL PROMINENT COLLATERALS LOWER LEFT PARA-AORTIC REGION. 4. MILD CIRCUMFERENTIAL BLADDER WALL THICKENING MAY BE CHRONIC FROM THE PATIENT. CORRELATE TO EXCLUDE CYSTITIS.
[2023-02-02 09:26] LABS: Appearance,Urine Clear (Clear); Bilirubin,Urine Negative (Negative); Color,Urine Yellow; Glucose,Urine (UA) Negative (Negative); Ketones,Urine Negative (Negative); PH, Urine 6.5 (5.0-8.0); Protein,Urine Negative (Negative)
[2023-02-02 09:27] VITALS: BP 140/80; PULSE 80
[2023-02-02 09:27] LABS: Blood,Urine Negative (Negative); Leukocyte Esterase,Urine Negative (Negative); Nitrite,Urine Negative (Negative); Urobilinogen,Urine <2.0 mg/dL (<2.0)
== END 2023-02-02 10:04 | disposition home or self-care (01) ==
LOC: EC 05:52
DX: E87.1 Hypo-osmolality and hyponatremia (principal); K52.9 Noninfective gastroenteritis and colitis, unspecified; F10.129 Alcohol abuse with intoxication, unspecified; I10 Essential (primary) hypertension; Z79.899 Other long term (current) drug therapy
CPT/HCPCS: 36415; 80053; 83605; 83690; 83735; 85025; 81003; 70450; 74177; 99284; 96374; 96375 ×3; 96376; 96361; G0480; J1200; J2765; J3490; J1885; Q9967; 80320

== ENCOUNTER → 2023-02-18 | Outpatient (CLI) | payer OTHER ==
[2023-02-18 13:40] LABS: Alcohol <10 mg/dL
[2023-02-18 14:40] LABS: ALT 77 U/L (4-49); AST 149 U/L (17-59); African American GFR (CKD) >90 (>60 ml/min/1.73 sqM); Albumin 3.7 g/dL (3.5-5.0); Alkaline Phosphatase 92 U/L (38-126); Anion Gap 13 mmol/L; Blood Urea Nitrogen 10 mg/dL (9-20); Calcium 8.7 mg/dL (8.4-10.2); Carbon Dioxide 24 mmol/L (22-30); Chloride 95 mmol/L (98-107); Creatine Kinase 213 U/L (55-170); Globulin 3.8 g/dL; Glucose 56 mg/dL (74-99); Non-African American GFR(CKD) >90 (>60 ml/min/1.73 sqM); Potassium 3.6 mmol/L (3.5-5.1); Sodium 132 mmol/L (137-145); Total Bilirubin 1.9 mg/dL (0.2-1.3); Total Protein 7.5 g/dL (6.3-8.2)
[2023-02-18 18:19] LABS: Basophils # (A) 0.09 X 10*3/uL (0.00-0.10); Basophils % (A) 1.2 %; Eosinophils # (A) 0.09 X 10*3/uL (0.04-0.35); Eosinophils % (A) 1.2 %; HCT 38.4 % (39.6-50.0); HGB 12.1 g/dL (13.0-17.0); Lymphocytes # (A) 2.36 X 10*3/uL (0.90-5.00); Lymphocytes % (A) 31.8 %; MCH 27.8 pg (27.0-32.0); MCHC 31.5 g/dL (32.0-37.0); MCV 88.3 FL (80.0-97.0); Mean Platelet Volume 10.9 FL (9.5-12.2); Monocytes # (A) 1.44 X 10*3/uL (0.20-1.00); Monocytes % (A) 19.4 %; NRBC Per 100 WBC 0 X 10*3/uL (0.00-0.01); Neutrophils # (A) 3.38 X 10*3/uL (1.80-7.70); Neutrophils % (A) 45.5 %; Platelet Count 137 X 10*3/uL (140-440); RBC 4.35 X 10*6/uL (4.40-5.60); RDW 16.6 % (11.5-14.5); WBC 7.43 X 10*3/uL (4.50-10.00)
== END | disposition home or self-care (01) ==
LOC: LABWHC1 12:02
PROVIDERS: ATTEND Physician Assistant Medical
DX: K74.60 Unspecified cirrhosis of liver (principal); G64 Other disorders of peripheral nervous system
CPT/HCPCS: 84425; 80053; 82607; 82140; 82550; 82746; 83735; 85025; 36415; G0480; 80320

== ENCOUNTER → 2023-04-06 | Outpatient (CLI) | payer OTHER ==
--- NOTE | 2023-04-06 14:41 | FL ---
EXAMINATION TYPE: FL arthrogram shoulder LT DATE OF EXAM: 04/06/2023 COMPARISON: NONE HISTORY: Left shoulder pain The procedure was explained to the patient. The risks, complications, benefits, and alternatives wer e discussed and any questions were answered. Informed consent was obtained. Patient was placed supi ne on the fluoroscopic table and prepped and draped in the usual sterile fashion. All elements of maximal barrier and sterile technique utilized. Utilizing CT guidance, an 22 gauge Chiba biopsy needle access into left shoulder joint is obtained an d there is instillation of contrast. Spot images demonstrate ideal placement of contrast within the j oint space. Patient was to exercise the shoulder prior to MRI and post arthrogram MRI imaging. 47 sec fluoro time. One images. 5 cc ISO 370 used, 0.08 cc gadavist used, 15 cc sterile saline used. IMPRESSION: 1. Successful fluoroscopic-guided left shoulder arthrogram prior to MRI.
== END | disposition home or self-care (01) ==
LOC: RADFLMAIN 12:31
PROVIDERS: ATTEND Orthopaedic Surgery
DX: M75.102 Unspecified rotator cuff tear or rupture of left shoulder, not specified as traumatic (principal); M25.512 Pain in left shoulder
CPT/HCPCS: 23350; 73040; 73222; A9585; Q9967

== ENCOUNTER 2023-05-18 17:37 | Emergency (ER) | payer OTHER ==
[2023-05-18] MEDS: LIDOCAINE 1% INJ 10MG/ML (20 ML MDV) SQ ONE (18:17)
[2023-05-18] MEDS: BACITRACIN OINT 1 EACH PACKET TOPICAL ONE (18:32)
--- NOTE | 2023-05-18 18:56 | ED ---
Wound/Laceration HPI - General Chief Complaint: Wound/Laceration Stated Complaint: L Leg Lac Time Seen by Provider: 05/18/23 17:50 Source: patient, RN notes reviewed Mode of arrival: ambulatory Limitations: no limitations - History of Present Illness Initial Comments: 42-year-old male presents the emergency department chief complaint of left leg laceration. Patient states he is unaware how he cut his leg but he noticed it was bleeding while he was at work through his pants and he was unable to stop the bleeding at home. Is unaware when his last tetanus vaccination was. - Related Data Home Medications Medication Instructions Recorded Confirmed Lactulose 10 gm PO DAILY 04/24/21 09/12/22 Magnesium Oxide [Mag-Ox] 400 mg PO BID 04/24/21 09/12/22 Furosemide [Lasix] 40 mg PO BID 06/12/22 09/12/22 Sildenafil Citrate 50 mg PO DAILY PRN 06/12/22 09/12/22 Thiamine [Vitamin B-1] 100 mg PO DAILY 06/12/22 09/12/22 traZODone HCL [Desyrel] 50 mg PO HS 06/12/22 09/12/22 Escitalopram [Lexapro] 5 mg PO DAILY 09/11/22 09/12/22 Previous Rx's Medication Instructions Recorded Metoprolol Tartrate [Lopressor] 50 mg PO BID #60 tab 04/12/20 Spironolactone [Aldactone] 100 mg PO DAILY #30 tab 04/12/20 Pantoprazole [Protonix] 40 mg PO BID #60 tab 06/01/21 Ibuprofen [Motrin] 400 mg PO Q6HR PRN tab 09/11/22 levETIRAcetam [Keppra] 750 mg PO Q12HR #30 tab 09/12/22 Dicyclomine [Bentyl] 20 mg PO TID #30 tablet 02/02/23 Ondansetron Odt [Zofran Odt] 4 mg PO Q8HR PRN #10 tab 02/02/23 Allergies Allergy/AdvReac Type Severity Reaction Status Date / Time No Known Allergies Allergy Verified 05/18/23 17:58 Review of Systems ROS Statement: Those systems with pertinent positive or pertinent negative responses have been documented in the HPI. ROS Other: All systems not noted in ROS Statement are negative. Past Medical History Past Medical History: Hypertension, Liver Disease, Seizure Disorder Additional Past Medical History / Comment(s): vomiting blood, hisotry of Alcohol abuse, cirrhosis, ascites, esophageal varicies,last seizure approx 2-3 mos ago History of Any Multi-Drug Resistant Organisms: MRSA Date of last positivie culture/infection: 01/15/21 MDRO Source:: MRSA LEG Past Surgical History: Cholecystectomy, Orthopedic Surgery Additional Past Surgical History / Comment(s): rt hand, 2 lt shoulder, large volume paracentesis approx 4-5 times-last one done approx 1 1/1 yrs ago Past Anesthesia/Blood Transfusion Reactions: No Reported Reaction Past Psychological History: No Psychological Hx Reported Smoking Status: Never smoker Past Alcohol Use History: Abuse, Daily, Heavy Past Drug Use History: None Reported - Past Family History Mother Family Medical History: Hypertension Additional Family Medical History / Comment(s): Mother is living. Father Family Medical History: CVA/TIA Additional Family Medical History / Comment(s): Father is living. General Exam Limitations: no limitations General appearance: alert, in no apparent distress Head exam: Present: atraumatic, normocephalic, normal inspection Eye exam: Present: normal appearance, PERRL, EOMI. Absent: scleral icterus, conjunctival injection, periorbital swelling ENT exam: Present: normal exam, mucous membranes moist Neck exam: Present: normal inspection. Absent: tenderness, meningismus, lymphadenopathy Respiratory exam: Present: normal lung sounds bilaterally. Absent: respiratory distress, wheezes, rales, rhonchi, stridor Cardiovascular Exam: Present: regular rate, normal rhythm, normal heart sounds. Absent: systolic murmur, diastolic murmur, rubs, gallop, clicks GI/Abdominal exam: Present: soft, normal bowel sounds. Absent: distended, tenderness, guarding, rebound, rigid Left Lower Leg exam: Present: full ROM, laceration (5.5 cm laceration in the proximal tibia. patient endorses paresthesias from the knee distally due to neuropathy). Absent: normal inspection, tenderness, ecchymosis, deformity Ankle exam: Present: normal inspection Back exam: Present: normal inspection Neurological exam: Present: alert, oriented X3, CN II-XII intact Psychiatric exam: Present: normal affect, normal mood Skin exam: Present: warm, dry, intact, normal color. Absent: rash Course Vital Signs 05/18/23 05/18/23 17:56 19:05 Temperature 98.5 F 98 F Pulse Rate 77 72 Respiratory 18 20 Rate Blood Pressure 124/72 140/81 O2 Sat by Pulse 98 99 Oximetry Procedures - Laceration Laceration #1 Consent Obtained: verbal consent Indication: laceration Site: lower extremity Description: linear (46 cm laceration extending on the anterior aspect of the tibia. The most proximal area of the laceration is an avulsion with skin loss, unable to approximate skin.), flap, avulsion, clean Anesthetic Used: lidocaine 1% Anesthesia Technique: local infiltration Pre-repair: wound explored, irrigated extensively Type of Sutures: nylon Size of Sutures: 3-0 Number of Sutures: 4 Technique: simple, interrupted Patient Tolerated Procedure: well, no complications Additional Comments: Area was numbed with 1% lidocaine with local infiltration. Area was irrigated with Betadine and normal saline checked for any debris's. Total of 4 simple interrupted sutures were placed on the patient's distal tibia. Bacitracin was applied to wound, and area was wrapped with gauze. Medical Decision Making - Medical Decision Making Was pt. sent in by a medical professional or institution (, PA, RESEARCH SPEC, urgent care, hospital, or custodial...) When possible be specific @ -No Did you speak to anyone other than the patient for history (EMS, parent, family, police, friend...)? What history was obtained from this source @ -No Did you review nursing and triage notes (agree or disagree)? Why? @ -I reviewed and agree with nursing and triage notes Were old charts reviewed (outside hosp., previous admission, EMS record, old EKG, old radiological studies, urgent care reports/EKG's, custodial records)? Report findings @ -No old charts were reviewed Differential Diagnosis (chest pain, altered mental status, abdominal pain women, abdominal pain men, vaginal bleeding, weakness, fever, dyspnea, syncope, headache, dizziness, GI bleed, back pain, seizure, CVA, palpatations, mental health, musculoskeletal)? @ -Laceration, wound, lower extremity injury EKG interpreted by me (3pts min.). @ -None X-rays interpreted by me (1pt min.). @ -None done CT interpreted by me (1pt min.). @ -None done U/S interpreted by me (1pt. min.). @ -None done What testing was considered but not performed or refused? (CT, X-rays, U/S, labs)? Why? @ -None What meds were considered but not given or refused? Why? @ -None Did you discuss the management of the patient with other professionals (professionals i.e. , PA, RESEARCH SPEC, lab, RT, psych nurse, social worker psychiatric, battery technician, teacher, detention officer, supportive employment case manager)? Give summary @ -No Was smoking cessation discussed for >3mins.? @ -No Was critical care preformed (if so, how long)? @ -No Were there social determinants of health that impacted care today? How? (Homelessness, low income, unemployed, alcoholism, drug addiction, transpor tation, low edu. Level, literacy, decrease access to med. care, detention, rehab)? @ -No Was there de-escalation of care discussed even if they declined (Discuss DNR or withdrawal of care, Hospice)? DNR status @ -No What co-morbidities impacted this encounter? (DM, HTN, Smoking, COPD, CAD, Cancer, CVA, ARF, Chemo, Hep., AIDS, mental health diagnosis, sleep apnea, morbid obesity)? @ -None Was patient admitted / discharged? Hospital course, mention meds given and route, prescriptions, significant lab abnormalities, going to OR and other pertinent info. @ -discharge. 42-year-old male with chief complaint of laceration to the left lower extremity. Area was thoroughly cleaned with Betadine and sterile water, 1% lidocaine used to infiltrate the local wound, 3-0 nylon used with 4 simple interrupted sutures placed. Bacitracin placed over the chairs and gauze applied over top. Patient tolerated procedure well. Patient was also given tetanus vaccination due to being unaware of his most previous vaccination. Patient stated to follow-up in 7 to 10 days for suture removal. This case with my attending Dr. Ding who is agreeable to plan and with discharge. Undiagnosed new problem with uncertain prognosis? @ -No Drug Therapy requiring intensive monitoring for toxicity (Heparin, Nitro, Insulin, Cardizem)? @ -No Were any procedures done? @ -No Diagnosis/symptom? @ -[Wound, laceration Acute, or Chronic, or Acute on Chronic? @ -Acute Uncomplicated (without systemic symptoms) or Complicated (systemic symptoms)? @ -uncomplicated Side effects of treatment? @ -No Exacerbation, Progression, or Severe Exacerbation? @ -No Poses a threat to life or bodily function? How? (Chest pain, [place], [place], pneumonia, PE, COPD, DKA, ARF, appy, cholecystitis, CVA, Diverticulitis, Homicidal, Suicidal, threat to staff... and all critical care pts) @ -No Disposition Clinical Impression: Laceration Narrative: Please return to the Emergency Department if symptoms worsen or any other concerns. Disposition: HOME SELF-CARE Condition: Good Instructions (If sedation given, give patient instructions): Care For Your Stitches (ED) Is patient prescribed a controlled substance at d/c from ED?: No Referrals: Carlos Enrique Crowder MD [Primary Care Provider] - 1-2 days Time of Disposition: 18:56
[2023-05-18] MEDS: DIPH,PERTUS(ACELL)TETVAC-LF 0.5 ML VIAL IM ONE (19:02)
[2023-05-18 19:16] VITALS: BP 140/81; PULSE 72; RESP 20; TEMP 98
== END 2023-05-18 19:00 | disposition home or self-care (01) ==
LOC: EC 17:37
DX: S81.812A Laceration without foreign body, left lower leg, initial encounter (principal); G62.9 Polyneuropathy, unspecified; Z23 Encounter for immunization; X58.XXXA Exposure to other specified factors, initial encounter; Y99.0 Civilian activity done for income or pay
CPT/HCPCS: 90715; 12002; 99282; 90471; J2001

== ENCOUNTER → 2023-06-08 | Outpatient (CLI) | payer OTHER ==
--- NOTE | 2023-06-08 12:39 | CT ---
EXAMINATION TYPE: CT chest wo con DATE OF EXAM: 06/08/2023 COMPARISON: None HISTORY: chest pain following fall CT DLP: 514.3 mGycm, Automated exposure control for dose reduction was used. CONTRAST: Performed injected with 0 mL of Isovue 300. TECHNIQUE: Axial images were obtained at 5 mm thick sections. Reconstructed images are reviewed on [employer] computer in the coronal plane. FINDINGS: Portion of the thyroid visualized is normal. No suspicious lung nodules or focal infiltrates are present. No enlarged mediastinal or hilar adenopathy is evident. The ascending aorta diameter at the level o f the main pulmonary artery is 3.2 cm. The main pulmonary artery diameter at the bifurcation is 2.[address] sections are obtained through the upper abdomen. Abdomen is essentially unremarkable. Attention is obtained to the thoracic spine. Vertebral body heights are preserved. Disc heights appea r preserved ribs appear intact. Vertebral body alignment is preserved sternal appears normal. IMPRESSION: 1. No acute abnormality CT chest. 2. Thoracic spine is visualized appears intact
== END | disposition home or self-care (01) ==
LOC: RADCTMAIN 11:48
PROVIDERS: ATTEND Family Medicine
DX: R07.81 Pleurodynia (principal)
CPT/HCPCS: 71250

== ENCOUNTER 2023-07-17 08:36 | Emergency (ER) | payer OTHER ==
--- NOTE | 2023-07-17 08:58 | ED ---
General Adult HPI - General Chief complaint: Alcohol Stated complaint: ETOH Time Seen by Provider: 07/17/23 08:49 Source: patient, RN notes reviewed Mode of arrival: ambulatory Limitations: no limitations - History of Present Illness Initial comments: Patient is a pleasant 42-year-old male present to the emergency department with concerns for alcohol problems. Patient is trying to quit. Patient decreased his intake 2 days ago. Patient has had multiple episodes of vomiting and some diarrhea. Patient still has nausea. Patient did drink alcohol this morning. Patient states he has not been able to keep his Keppra down. No fever. - Related Data Home Medications Medication Instructions Recorded Confirmed Lactulose 10 gm PO DAILY 04/24/21 09/12/22 Magnesium Oxide [Mag-Ox] 400 mg PO BID 04/24/21 09/12/22 Furosemide [Lasix] 40 mg PO BID 06/12/22 09/12/22 Sildenafil Citrate 50 mg PO DAILY PRN 06/12/22 09/12/22 Thiamine [Vitamin B-1] 100 mg PO DAILY 06/12/22 09/12/22 traZODone HCL [Desyrel] 50 mg PO HS 06/12/22 09/12/22 Escitalopram [Lexapro] 5 mg PO DAILY 09/11/22 09/12/22 Previous Rx's Medication Instructions Recorded Metoprolol Tartrate [Lopressor] 50 mg PO BID #60 tab 04/12/20 Spironolactone [Aldactone] 100 mg PO DAILY #30 tab 04/12/20 Pantoprazole [Protonix] 40 mg PO BID #60 tab 06/01/21 Ibuprofen [Motrin] 400 mg PO Q6HR PRN tab 09/11/22 levETIRAcetam [Keppra] 750 mg PO Q12HR #30 tab 09/12/22 Dicyclomine [Bentyl] 20 mg PO TID #30 tablet 02/02/23 Ondansetron Odt [Zofran Odt] 4 mg PO Q8HR PRN #10 tab 02/02/23 Ondansetron Odt [Zofran Odt] 4 mg PO Q8HR PRN #10 tab 07/17/23 Allergies Allergy/AdvReac Type Severity Reaction Status Date / Time No Known Allergies Allergy Verified 07/17/23 08:48 Review of Systems ROS Statement: Those systems with pertinent positive or pertinent negative responses have been documented in the HPI. ROS Other: All systems not noted in ROS Statement are negative. Constitutional: Denies: fever Cardiovascular: Denies: chest pain Gastrointestinal: Reports: as per HPI, nausea, vomiting, diarrhea Skin: Denies: rash Neurological: Denies: weakness Past Medical History Past Medical History: Hypertension, Liver Disease, Seizure Disorder Additional Past Medical History / Comment(s): vomiting blood, hisotry of Alcohol abuse, cirrhosis, ascites, esophageal varicies,last seizure approx 2-3 mos ago History of Any Multi-Drug Resistant Organisms: MRSA Date of last positivie culture/infection: 01/15/21 MDRO Source:: MRSA LEG Past Surgical History: Cholecystectomy, Orthopedic Surgery Additional Past Surgical History / Comment(s): rt hand, 2 lt shoulder, large volume paracentesis approx 4-5 times-last one done approx 1 1/1 yrs ago Past Anesthesia/Blood Transfusion Reactions: No Reported Reaction Past Psychological History: No Psychological Hx Reported Smoking Status: Never smoker Past Alcohol Use History: Abuse, Daily, Heavy Past Drug Use History: None Reported - Past Family History Mother Family Medical History: Hypertension Additional Family Medical History / Comment(s): Mother is living. Father Family Medical History: CVA/TIA Additional Family Medical History / Comment(s): Father is living. General Exam Limitations: no limitations General appearance: alert, in no apparent distress Head exam: Present: atraumatic Eye exam: Present: normal appearance, PERRL, EOMI, nystagmus Neck exam: Present: normal inspection Respiratory exam: Present: normal lung sounds bilaterally Cardiovascular Exam: Present: regular rate, normal rhythm GI/Abdominal exam: Present: soft. Absent: distended, tenderness, guarding, rebound, rigid Extremities exam: Present: normal inspection Neurological exam: Present: alert Psychiatric exam: Present: normal affect, normal mood Skin exam: Present: normal color Course Vital Signs 07/17/23 07/17/23 08:44 10:12 Temperature 98 F Pulse Rate 82 Respiratory 18 Rate Blood Pressure 117/74 123/77 O2 Sat by Pulse 98 Oximetry Medical Decision Making - Medical Decision Making Was pt. sent in by a medical professional or institution (, PA, DATA ENTRY TECHNICIAN, urgent care, hospital, or penitentiary...) When possible be specific @ -No Did you speak to anyone other than the patient for history (EMS, parent, family, police, friend...)? What history was obtained from this source @ -No Did you review nursing and triage notes (agree or disagree)? Why? @ -I reviewed and agree with nursing and triage notes Were old charts reviewed (outside hosp., previous admission, EMS record, old EKG, old radiological studies, urgent care reports/EKG's, penitentiary records)? Report findings @ -No old charts were reviewed Differential Diagnosis (chest pain, altered mental status, abdominal pain women, abdominal pain men, vaginal bleeding, weakness, fever, dyspnea, syncope, headache, dizziness, GI bleed, back pain, seizure, CVA, palpatations, mental health, musculoskeletal)? @ -Differential Abdominal Pain Men: Appendicitis, cholecystitis, diverticulosis, ischemic bowel, pancreatitis, hepatitis, UTI, gastroenteritis, AAA, incarcerated hernia, bowel obstruction, c onstipation, inflammatory bowel, hepatitis, peptic ulcer disease, splenic infarction, perforated viscus, testicular torsion, this is not meant to be an all-inclusive list EKG interpreted by me (3pts min.). @ -As above X-rays interpreted by me (1pt min.). @ -None done CT interpreted by me (1pt min.). @ -None done U/S interpreted by me (1pt. min.). @ -None done What testing was considered but not performed or refused? (CT, X-rays, U/S, labs)? Why? @ -None What meds were considered but not given or refused? Why? @ -None Did you discuss the management of the patient with other professionals (professionals i.e. , PA, DATA ENTRY TECHNICIAN, lab, RT, psych nurse, social worker aide, marketing communications assistant, teacher, probation officer, case worker)? Give summary @ -Case was discussed with Dr. Adame with sound physician who would admit patient if patient is agreeable however also was comfortable with discharge as patient did not want to stay Was smoking cessation discussed for >3mins.? @ -No Was critical care preformed (if so, how long)? @ -No Were there social determinants of health that impacted care today? How? (Home lessness, low income, unemployed, alcoholism, drug addiction, transportation, low edu. Level, literacy, decrease access to med. care, [facility], rehab)? @ -No Was there de-escalation of care discussed even if they declined (Discuss DNR or withdrawal of care, Hospice)? DNR status @ -No What co-morbidities impacted this encounter? (DM, HTN, Smoking, COPD, CAD, Cancer, CVA, ARF, Chemo, Hep., AIDS, mental health diagnosis, sleep apnea, morbid obesity)? @ -None Was patient admitted / discharged? Hospital course, mention meds given and route, prescriptions, significant lab abnormalities, going to OR and other pertinent info. @ -Patient was reevaluated and feels much better. No vomiting since emergency department. Patient offered admission however he refuses. Patient is requesting discharge home. Patient is receptive to prescription for nausea medication. Patient is agreeable to return if persistent emesis. Patient is advised to make sure to get electrolytes and Undiagnosed new problem with uncertain prognosis? @ -No Drug Therapy requiring intensive monitoring for toxicity (Heparin, Nitro, Insulin, Cardizem)? @ -No Were any procedures done? @ -No Diagnosis/symptom? @ -Vomiting, alcohol intoxication Acute, or Chronic, or Acute on Chronic? @ -Acute, acute on chronic Uncomplicated (without systemic symptoms) or Complicated (systemic symptoms)? @ -Complicated with borderline hyponatremia Side effects of treatment? @ -No Exacerbation, Progression, or Severe Exacerbation? @ -No Poses a threat to life or bodily function? How? (Chest pain, [place], [place], pneumonia, PE, COPD, DKA, ARF, appy, cholecystitis, CVA, Diverticulitis, Homicidal, Suicidal, threat to staff... and all critical care pts) @ -No - Lab Data Result diagrams: 07/17/23 09:29 07/17/23 09:29 Lab Results 07/17/23 07/17/23 Range/Units 09:29 09:29 WBC 7.3 (3.8-10.6) k/uL RBC 4.75 (4.30-5.90) m/uL Hgb 12.2 L (13.0-17.5) gm/dL Hct 37.8 L (39.0-53.0) % MCV 79.5 L (80.0-100.0) fL MCH 25.6 (25.0-35.0) pg MCHC 32.2 (31.0-37.0) g/dL RDW 16.4 H (11.5-15.5) % Plt Count 172 (150-450) k/uL MPV 7.9 Neutrophils % 65 % Lymphocytes % 17 % Monocytes % 13 % Eosinophils % 1 % Basophils % 1 % Neutrophils # 4.7 (1.3-7.7) k/uL Lymphocytes # 1.2 (1.0-4.8) k/uL Monocytes # 1.0 (0-1.0) k/uL Eosinophils # 0.0 (0-0.7) k/uL Basophils # 0.1 (0-0.2) k/uL Anisocytosis Slight Sodium 127 L (137-145) mmol/L Potassium 3.8 (3.5-5.1) mmol/L Chloride 90 L (98-107) mmol/L Carbon Dioxide 25 (22-30) mmol/L Anion Gap 12 mmol/L BUN 4 L (9-20) mg/dL Creatinine 0.67 (0.66-1.25) mg/dL Est GFR (CKD-EPI)AfAm >90 (>60 ml/min/1.73 sqM) Est GFR (CKD-EPI)NonAf >90 (>60 ml/min/1.73 sqM) Glucose 124 H (74-99) mg/dL Calcium 8.3 L (8.4-10.2) mg/dL Magnesium 1.8 (1.6-2.3) mg/dL Total Bilirubin 2.3 H (0.2-1.3) mg/dL AST 130 H (17-59) U/L ALT 49 (4-49) U/L Alkaline Phosphatase 95 (38-126) U/L Total Protein 7.7 (6.3-8.2) g/dL Albumin 3.9 (3.5-5.0) g/dL Serum Alcohol 254 H* mg/dL Disposition Clinical Impression: Alcoholic intoxication, Vomiting Disposition: HOME SELF-CARE Condition: Stable Instructions (If sedation given, give patient instructions): Alcohol Intoxication (ED), Acute Nausea and Vomiting (ED) Additional Instructions: Discontinue alcohol use gradually. Please follow-up with primary care physician in the next day or 2 for recheck. Prescription sent to pharmacy for nausea medication. Return for not tolerating fluids, increased vomiting, pain, worsening symptoms or other concerns. Make sure to get electrolytes and use such as Gatorade. Consider rehab. Prescriptions: Ondansetron Odt [Zofran Odt] 4 mg PO Q8HR PRN #10 tab PRN Reason: Nausea Is patient prescribed a controlled substance at d/c from ED?: No Referrals: Carlos Enrique Crowder MD [Primary Care Provider] - 1-2 days Time of Disposition: 11:25
[2023-07-17] MEDS: levETIRAcetam IV 1,000 MG in SODIUM CHLORIDE 0.9% 250 ML IVPB ONE (09:04)
[2023-07-17] MEDS: SODIUM CHLORIDE 0.9% 1,000 ML IV STA (09:31)
[2023-07-17 09:34] VITALS: RESP 18; TEMP 98
[2023-07-17 09:54] LABS: Anisocytosis Slight; Basophils # (A) 0.1 k/uL (0-0.2); Basophils % (A) 1 %; Eosinophils % (A) 1 %; HCT 37.8 % (39.0-53.0); HGB 12.2 gm/dL (13.0-17.5); Lymphocytes # (A) 1.2 k/uL (1.0-4.8); Lymphocytes % (A) 17 %; MCH 25.6 pg (25.0-35.0); MCHC 32.2 g/dL (31.0-37.0); MCV 79.5 fL (80.0-100.0); Mean Platelet Volume 7.9; Monocytes % (A) 13 %; Neutrophils # (A) 4.7 k/uL (1.3-7.7); Neutrophils % (A) 65 %; Platelet Count 172 k/uL (150-450); RBC 4.75 m/uL (4.30-5.90); RDW 16.4 % (11.5-15.5); WBC 7.3 k/uL (3.8-10.6)
[2023-07-17] MEDS: ONDANSETRON 4 MG/2 ML VIAL IVP STA (09:55)
[2023-07-17] MEDS: FAMOTIDINE 20 MG/2 ML VIAL IV STA (09:58)
[2023-07-17] MEDS: THIAMINE 100 MG/ML 2 ML VIAL IM STA (10:00)
[2023-07-17] MEDS: DICYCLOMINE 10 MG/ML 2 ML AMP IM STA (10:01)
[2023-07-17] MEDS: levETIRAcetam IV 500 MG/5 ML VIAL IVP STA (10:05)
[2023-07-17 10:10] LABS: ALT 49 U/L (4-49); AST 130 U/L (17-59); African American GFR (CKD) >90 (>60 ml/min/1.73 sqM); Albumin 3.9 g/dL (3.5-5.0); Alkaline Phosphatase 95 U/L (38-126); Anion Gap 12 mmol/L; Blood Urea Nitrogen 4 mg/dL (9-20); Calcium 8.3 mg/dL (8.4-10.2); Carbon Dioxide 25 mmol/L (22-30); Chloride 90 mmol/L (98-107); Glucose 124 mg/dL (74-99); Magnesium 1.8 mg/dL (1.6-2.3); Non-African American GFR(CKD) >90 (>60 ml/min/1.73 sqM); Potassium 3.8 mmol/L (3.5-5.1); Sodium 127 mmol/L (137-145); Total Bilirubin 2.3 mg/dL (0.2-1.3); Total Protein 7.7 g/dL (6.3-8.2)
[2023-07-17 10:13] LABS: Alcohol 254 mg/dL
[2023-07-17 12:01] VITALS: BP 115/64
[2023-07-17 12:02] VITALS: PULSE 79
== END 2023-07-17 12:03 | disposition home or self-care (01) ==
LOC: EC 08:36
DX: F10.129 Alcohol abuse with intoxication, unspecified (principal); R11.10 Vomiting, unspecified; Y90.8 Blood alcohol level of 240 mg/100 ml or more
CPT/HCPCS: 36415; 80053; 83735; 85025; 99284; 96374; 96375 ×2; 96361; 96372 ×2; G0480; J0500; J3411; J2405; J3490; J1953; 80320

== ENCOUNTER 2023-12-01 20:05 | Emergency (ER) | payer OTHER ==
[2023-12-01 20:20] VITALS: BP 145/80; PULSE 102; RESP 18; TEMP 97.8
--- NOTE | 2023-12-01 20:24 | ED ---
Back Pain HPI - General Chief Complaint: Back Pain/Injury Stated Complaint: L side back pain Time Seen by Provider: 12/01/23 20:24 Source: patient Limitations: no limitations - History of Present Illness Initial Comments: 43-year-old male presenting chief complaint of lower back pain. Located primarily on the left side and wraps around to the abdomen. Denies any injury or trauma. - Related Data Home Medications Medication Instructions Recorded Confirmed Lactulose 10 gm PO DAILY 04/24/21 09/12/22 Magnesium Oxide [Mag-Ox] 400 mg PO BID 04/24/21 09/12/22 Furosemide [Lasix] 40 mg PO BID 06/12/22 09/12/22 Sildenafil Citrate 50 mg PO DAILY PRN 06/12/22 09/12/22 Thiamine [Vitamin B-1] 100 mg PO DAILY 06/12/22 09/12/22 traZODone HCL [Desyrel] 50 mg PO HS 06/12/22 09/12/22 Escitalopram [Lexapro] 5 mg PO DAILY 09/11/22 09/12/22 Previous Rx's Medication Instructions Recorded Metoprolol Tartrate [Lopressor] 50 mg PO BID #60 tab 04/12/20 Spironolactone [Aldactone] 100 mg PO DAILY #30 tab 04/12/20 Pantoprazole [Protonix] 40 mg PO BID #60 tab 06/01/21 Ibuprofen [Motrin] 400 mg PO Q6HR PRN tab 09/11/22 levETIRAcetam [Keppra] 750 mg PO Q12HR #30 tab 09/12/22 Dicyclomine [Bentyl] 20 mg PO TID #30 tablet 02/02/23 Ondansetron Odt [Zofran Odt] 4 mg PO Q8HR PRN #10 tab 02/02/23 Ondansetron Odt [Zofran Odt] 4 mg PO Q8HR PRN #10 tab 07/17/23 Allergies Allergy/AdvReac Type Severity Reaction Status Date / Time No Known Allergies Allergy Verified 12/01/23 20:20 Review of Systems ROS Statement: Those systems with pertinent positive or pertinent negative responses have been documented in the HPI. ROS Other: All systems not noted in ROS Statement are negative. Past Medical History Past Medical History: Hypertension, Liver Disease, Seizure Disorder Additional Past Medical History / Comment(s): vomiting blood, hisotry of Alcohol abuse, cirrhosis, ascites, esophageal varicies,last seizure approx 2-3 mos ago History of Any Multi-Drug Resistant Organisms: MRSA Date of last positivie culture/infection: 01/15/21 MDRO Source:: MRSA LEG Past Surgical History: Cholecystectomy, Orthopedic Surgery Additional Past Surgical History / Comment(s): rt hand, 2 lt shoulder, large vol ume paracentesis approx 4-5 times-last one done approx 1 1/1 yrs ago Past Anesthesia/Blood Transfusion Reactions: No Reported Reaction Past Psychological History: No Psychological Hx Reported Smoking Status: Never smoker Past Alcohol Use History: Abuse, Daily, Heavy Past Drug Use History: None Reported - Past Family History Mother Family Medical History: Hypertension Additional Family Medical History / Comment(s): Mother is living. Father Family Medical History: CVA/TIA Additional Family Medical History / Comment(s): Father is living. General Exam - General Exam Comments Initial Comments: Visual Physical Exam Vital signs reviewed General: Well-appearing, nontoxic, no acute distress. Head: Normocephalic, atraumatic Eyes: PERRLA, EOMI ENT: Airway patent Chest: Nonlabored breathing Skin: No visual rash, normal skin tone Neuro: Alert and oriented 3 Musculoskeletal: No gross abnormalities Limitations: no limitations Course Vital Signs 12/01/23 20:17 Temperature 97.8 F Pulse Rate 102 H Respiratory 18 Rate Blood Pressure 145/80 O2 Sat by Pulse 99 Oximetry Medical Decision Making - Medical Decision Making I performed the quick note portion of this visit, electronically signed Jose Roberto Ivory PA-C Was pt. sent in by a medical professional or institution ([facility], MANUGRAPHER, urgent care, hospital, or [place] health care facility...) When possible be specific @ -No Did you speak to anyone other than the patient for history (EMS, parent, family, police, friend...)? What history was obtained from this source @ -No Did you review nursing and triage notes (agree or disagree)? Why? @ -I reviewed and agree with nursing and triage notes Were old charts reviewed (outside hosp., previous admission, EMS record, old EKG, old radiological studies, urgent care reports/EKG's, [place] health care facility records)? Report findings @ -No old charts were reviewed Differential Diagnosis (chest pain, altered mental status, abdominal pain women, abdominal pain men, vaginal bleeding, weakness, fever, dyspnea, syncope, headache, dizziness, GI bleed, back pain, seizure, CVA, palpatations, mental health, musculoskeletal)? @ - [facility] Differential Back Pain: Strain, zoster, cauda equina syndrome, epidural abscess, vertebral osteomyelitis, discitis, fracture, subluxation, disc herniation, DJD, spinal stenosis, dissection, AAA, pancreatitis, peptic ulcer disease, pyelonephritis, kidney stone this is not meant to be an all-inclusive list. EKG interpreted by me (3pts min.). @ -As above X-rays interpreted by me (1pt min.). @ -None done CT interpreted by me (1pt min.). @ -None done U/S interpreted by me (1pt. min.). @ -None done What testing was considered but not performed or refused? (CT, X-rays, U/S, labs)? Why? @ -None What meds were considered but not given or refused? Why? @ -None Did you discuss the management of the patient with other professionals (professionals i.e. , PA, MANUGRAPHER, lab, RT, psych nurse, social and political studies professor, network support administrator, teacher, chief digital officer, piano case maker)? Give summary @ -No Was smoking cessation discussed for >3mins.? @ -No Was critical care preformed (if so, how long)? @ -No Were there social determinants of health that impacted care today? How? (Homelessness, low income, unemployed, alcoholism, drug addiction, transportation, low edu. Level, literacy, decrease access to med. care, shelter, rehab)? @ -No Was there de-escalation of care discussed even if they declined (Discuss DNR or withdrawal of care, Hospice)? DNR status @ -No What co-morbidities impacted this encounter? (DM, HTN, Smoking, COPD, CAD, Cancer, CVA, ARF, Chemo, Hep., AIDS, mental health diagnosis, sleep apnea, morbid obesity)? @ -None Was patient admitted / discharged? Hospital course, mention meds given and route, prescriptions, significant lab abnormalities, going to OR and other pertinent info. @ -43-year-old male presenting with chief complaint of lower back pain. Workup is initiated by triage. He is later brought back to a room and evaluated by myself. Prior to completion of his evaluation he eloped from his room. Undiagnosed new problem with uncertain prognosis? @ -No Drug Therapy requiring intensive monitoring for toxicity (Heparin, Nitro, Insulin, Cardizem)? @ -No Were any procedures done? @ -No Diagnosis/symptom? @ -Back pain Acute, or Chronic, or Acute on Chronic? @ -Acute Uncomplicated (without systemic symptoms) or Complicated (systemic symptoms)? @ -unknown Side effects of treatment? @ -No Exacerbation, Progression, or Severe Exacerbation? @ -No Poses a threat to life or bodily function? How? (Chest pain, [place], [place], pneumonia, PE, COPD, DKA, ARF, appy, cholecystitis, CVA, Diverticulitis, Homicidal, Suicidal, threat to staff... and all critical care pts) @ -Unknown - Lab Data Lab Results 12/01/23 Range/Units 21:11 Urine Color Light Yellow Urine Appearance Clear (Clear) Urine pH 6.0 (5.0-8.0) Ur Specific [place] 1.006 (1.001-1.035) Urine Protein Negative (Negative) Urine Glucose (UA) Negative (Negative) Urine Ketones Negative (Negative) Urine Blood Negative (Negative) Urine Nitrite Negative (Negative) Urine Bilirubin Negative (Negative) Urine Urobilinogen <2.0 (<2.0) mg/dL Ur Leukocyte Esterase Negative (Negative) Disposition Clinical Impression: Back pain Disposition: LEFT AGAINST MEDICAL ADVICE Condition: Undetermined Referrals: Carlos Enrique Crowder MD [Primary Care Provider] - 1-2 days
[2023-12-01 21:28] LABS: Appearance,Urine Clear (Clear); Bilirubin,Urine Negative (Negative); Blood,Urine Negative (Negative); Color,Urine Light Yellow; Glucose,Urine (UA) Negative (Negative); Ketones,Urine Negative (Negative); Leukocyte Esterase,Urine Negative (Negative); Nitrite,Urine Negative (Negative); Protein,Urine Negative (Negative); Specific Gravity,Urine 1.006 (1.001-1.035); Urobilinogen,Urine <2.0 mg/dL (<2.0)
== END 2023-12-01 21:42 | disposition left against medical advice (07) ==
LOC: EC 20:05
DX: M54.50 Low back pain, unspecified (principal); Z53.29 Procedure and treatment not carried out because of patient's decision for other reasons
CPT/HCPCS: 81003; 99283

== ENCOUNTER → 2024-01-05 | Outpatient (CLI) | payer MEDICARE, OTHER ==
--- NOTE | 2024-01-05 16:59 | CA ---
Transthoracic Echo Report Name: Kian Diallo Age: 43 Gender: M : 1980 Exam Date: 01/05/2024 14:19 Exam Location: [facility] Ht (in): 72 Wt (lb): 225 Ordering Physician: Carlos Enrique Crowder MD Attending/Referring Phys: [employer] Printing Utility Worker Aubree Corona RDCS Procedure CPT: Indications: I48.91 ATRIAL FIBRILLATION Cardiac Hx: Technical Quality: Good Contrast 1: Total Dose (mL): Contrast 2: Total Dose (mL): MEASUREMENTS (Male / Female) Normal Values 2D ECHO LV Diastolic Diameter PLAX 5.2 cm 4.2 - 5.9 / 3.9 - 5.3 cm LV Systolic Diameter PLAX 3.3 cm IVS Diastolic Thickness 1.1 cm 0.6 - 1.0 / 0.6 - 0.9 cm LVPW Diastolic Thickness 1.1 cm 0.6 - 1.0 / 0.6 - 0.9 cm LV Relative Wall Thickness 0.4 RV Internal Dim ED PLAX 3.2 cm LA Systolic Diameter LX 3.5 cm 3.0 - 4.0 / 2.7 - 3.8 cm LV Diastolic Volume MOD 4C 153.4 cm??? LV Systolic Volume MOD 4C 69.0 cm??? LV Ejection Fraction MOD 4C 55.0 % LV Cardiac Index MOD 4C 2749.1 cm???/min???m??? LV Diastolic Length 4C 8.4 cm LV Systolic Length 4C 6.5 cm LV Diastolic Volume MOD 2C 164.2 cm??? LV Systolic Volume MOD 2C 79.4 cm??? LV Ejection Fraction MOD 2C 51.6 % LV Cardiac Index MOD 2C 2761.8 cm???/min???m??? LV Diastolic Length 2C 9.1 cm LV Systolic Length 2C 7.1 cm DOPPLER AV Peak Velocity 175.0 cm/s AV Peak Gradient 12.2 mmHg Mitral E Point Velocity 98.8 cm/s Mitral A Point Velocity 81.5 cm/s Mitral E to A Ratio 1.2 MV Deceleration Time 249.4 ms MV E' Velocity 10.1 cm/s Mitral E to MV E' Ratio 9.8 TR Peak Velocity 247.5 cm/s TR Peak Gradient 24.5 mmHg Right Ventricular Systolic Press 34.5 mmHg FINDINGS Left Ventricle Left ventricular ejection fraction is estimated at 55-60 %. Left ventricular cavity size normal. Mildly increased septal wall thickness. Normal left ventricular wall motion. Right Ventricle Normal right ventricular size and function. Mild pulmonary hypertension. Right Atrium Normal right atrial size. No right atrial thrombus or mass seen. Left Atrium Normal left atrial size. No left atrial thrombus or mass present. Mitral Valve Structurally normal mitral valve. No mitral stenosis, regurgitation or prolapse. Aortic Valve Trileaflet aortic valve. No aortic valve stenosis or regurgitation. Tricuspid Valve Structurally normal tricuspid valve. Mild tricuspid regurgitation. Pulmonic Valve Structurally normal pulmonic valve. Trace pulmonic regurgitation. Pericardium No pericardial or pleural effusion. Aorta Normal size aortic root and proximal ascending aorta. CONCLUSIONS Normal LV function Previewed by: Dr. Rashi Dawn MD (Electronically Signed) Final Date: 05 January 2024 16:58
== END | disposition home or self-care (01) ==
LOC: RADECHMAIN 14:14
PROVIDERS: ATTEND Family Medicine
DX: I48.91 Unspecified atrial fibrillation (principal)
CPT/HCPCS: 93306

== ENCOUNTER 2024-07-16 12:39 | Emergency (ER) | payer MEDICARE ==
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
[2024-07-16] MEDS: LIDOCAINE 1% INJ 10MG/ML (20 ML MDV) SQ ONE (13:45)
[2024-07-16 14:38] VITALS: BP 114/72; PULSE 58; RESP 18; TEMP 98.2
== END 2024-07-16 14:39 | disposition home or self-care (01) ==
LOC: EC 12:39
DX: S80.12XA Contusion of left lower leg, initial encounter (principal); X58.XXXA Exposure to other specified factors, initial encounter
CPT/HCPCS: 87070; 87205; 99283; 10060; J2003; 87077; 87186